=== PATIENT | male | born 1945 | race Caucasian/White ===

== ENCOUNTER 2016-09-28 13:40 | Inpatient (IN) | payer OTHER, BC ==
--- NOTE | 2016-09-28 14:15 | PDOC ---
History of Present Illness - General Chief Complaint: Shortness of Breath Stated Complaint: SOB Time Seen by Provider: 09/28/16 13:52 Past History - Past Medical History Allergies/Adverse Reactions: Allergies Allergy/AdvReac Type Severity Reaction Status Date / Time No Known Drug Allergies Allergy Verified 09/28/16 13:50 Home Medications: Ambulatory Orders Ezetimibe [Zetia -] 10 mg PO HS 01/14/12 Glimepiride 4 mg PO BID 01/14/12 Metoprolol Succinate [Toprol XL -] 50 mg PO DAILY 01/14/12 Allopurinol [Zyloprim -] 100 mg PO HS 12/09/12 Docosahexanoic Acid/Epa [Fish Oil Concentrate Softgel] 1 each PO DAILY 12/09/12 Pitavastatin Calcium [Livalo] 2 mg PO DAILY 12/09/12 Pirfenidone [Esbriet] 2 tab PO TID 07/16/14 Prednisone [Deltasone -] 20 mg PO HS 07/16/14 Aspirin [ASA -] 81 mg PO DAILY #0 07/20/14 Cholecalciferol (Vitamin D3) [Vitamin D3] 2,000 unit PO DAILY 07/20/14 Ubidecarenone/Vit E Acetate [Co Q-10 100 mg Softgel] 1 each PO DAILY 07/20/14 Insulin (Novolog 70/30) [Novolog Mix 70/30 Flexpen -] 20 units SQ DAILY Pitavastatin Calcium [Livalo] 2 mg PO DAILY 08/15/14 Acetaminophen [Tylenol .Regular Strength -] 650 mg PO Q6H PRN #60 tablet Pantoprazole Sodium [Protonix -] 40 mg PO DAILY #30 tablet.ec 08/19/14 Sennosides [Senna -] 2 tab PO HS PRN #0 tablet 08/19/14 Anemia: No Asthma: No Cancer: No Cardiac Disorders: Yes ([place] 1991, CAD, PCI) CVA: No COPD: Yes CHF: No Dementia: No Diabetes: Yes GI Disorders: No Disorders: Yes (BPH) HTN: Yes Hypercholesterolemia: Yes Liver Disease: No Seizures: No Thyroid Disease: No Other medical history: Instertitial Pulmonary Disease, Nephropathy - Surgical History Abdominal Surgery: Yes Appendectomy: Yes (1981) Cardiac Surgery: Yes (stents 2003) Cholecystectomy: No Lung Surgery: No Neurologic Surgery: No Orthopedic Surgery: Yes (rt knee 1995) - Immunization History Td Vaccination: Yes - Psycho/Social/Smoking Cessation Hx Anxiety: No Suicidal Ideation: No Smoking Status: No Smoking History: Former smoker Have you smoked in the past 12 months: No Number of Cigarettes Smoked Daily: 0 If you are a former smoker, when did you quit?: 1989 Information on smoking cessation initiated: No Hx Alcohol Use: No (denies) Drug/Substance Use Hx: No (denies) Substance Use Type: None Hx Substance Use Treatment: No *Physical Exam - Vital Signs Last Vital Signs Temp Pulse Resp BP Pulse Ox 98.4 F 112 H 22 128/78 91 L 09/28/16 13:47 09/28/16 13:47 09/28/16 13:47 09/28/16 13:47 09/28/16 13:47
--- NOTE | 2016-09-28 14:19 | PDOC ---
Attending Attestation - Resident Resident Name: Elijah Wood - ED Attending Attestation I have performed the following: I have examined & evaluated the patient, The case was reviewed & discussed with the resident, I agree w/resident's findings & plan, Exceptions are as noted - HPI HPI: 70 yo M history CHF, CAD, afib presents from Dr. Calle's office with progressively worsening SOB. He states he has had a recent decrease in exercise tolerance, has had difficulty walking his dog on their usual route without getting winded. He notes some slight swelling in his B/L legs, but the L one was recently injured. Denies chest pain, cough, fever. - Physicial Exam PE: GENERAL: Awake, alert, and fully oriented, in no acute distress HEAD: No signs of trauma EYES: PERRLA, EOMI, sclera anicteric, conjunctiva clear ENT: Auricles normal inspection, hearing grossly normal, nares patent, oropharynx clear without exudates. Moist mucosa NECK: Normal ROM, supple, no lymphadenopathy, JVD, or masses LUNGS: +Coarse crackles 1[address] B/L. HEART: Tachycardic, regular rhythm. ABDOMEN: Soft, nontender, normoactive bowel sounds. No guarding, no rebound. No masses EXTREMITIES: Normal range of motion, +trace pitting edema to pretibial area B/ L. No clubbing or cyanosis. No cords, erythema, or tenderness NEUROLOGICAL: Cranial nerves II through XII grossly intact. Normal speech, normal gait SKIN: Warm, Dry, normal turgor, no rashes or lesions noted. - Medical Decision Making Pt sent for CHF exacerbation. Will obtain labs, CXR, and EKG. Admit.
--- NOTE | 2016-09-28 14:26 | PDOC ---
History of Present Illness - History of Present Illness Initial Comments: 09/28/16 15:12 Mr. Dolan is a 70 year old male with a significant past medical history of Pulmonary Hypertension, Pulmonary Fibrosis, COPD, BPH, and Hematuria who presents to the emergency department with a 2-3 week history of increased Shortness of Breath after he switched from metoprolol to diltiazem. He says he was previously able to walk a great distance but now must stop 2-3 times while walking his dog over the same distance. The patient denies chest pain, headache and dizziness. Denies fever, chills, nausea, vomit, diarrhea and constipation. Denies dysuria, frequency, urgency and hematuria. Allergies: NKDA Past surgical history: Appendectomy and Cataract removal Social history: Extensive smoking history (35+ pack years) PMD - [facility] 09/28/16 15:38 <Elijah Wood - Last Filed: 09/28/16 16:59> <Lili Cortez - Last Filed: 09/28/16 17:43> - General Chief Complaint: Shortness of Breath Stated Complaint: SOB Time Seen by Provider: 09/28/16 13:52 Past History - Past Medical History Anemia: No Asthma: No Cancer: No Cardiac Disorders: Yes ([place] 1991, CAD, PCI) CVA: No COPD: Yes CHF: No Dementia: No Diabetes: Yes GI Disorders: No Disorders: Yes (BPH) HTN: Yes Hypercholesterolemia: Yes Liver Disease: No Seizures: No Thyroid Disease: No Other medical history: Instertitial Pulmonary Disease, Nephropathy - Surgical History Abdominal Surgery: Yes Appendectomy: Yes (1981) Cardiac Surgery: Yes (stents 2003) Cholecystectomy: No Lung Surgery: No Neurologic Surgery: No Orthopedic Surgery: Yes (rt knee 1995) - Immunization History Td Vaccination: Yes - Psycho/Social/Smoking Cessation Hx Anxiety: No Suicidal Ideation: No Smoking Status: No Smoking History: Former smoker Have you smoked in the past 12 months: No Number of Cigarettes Smoked Daily: 0 If you are a former smoker, when did you quit?: 1989 Information on smoking cessation initiated: No Hx Alcohol Use: No (denies) Drug/Substance Use Hx: No (denies) Substance Use Type: None Hx Substance Use Treatment: No <Elijah Wood - Last Filed: 09/28/16 16:59> <Lili Cortez - Last Filed: 09/28/16 17:43> - Past Medical History Allergies/Adverse Reactions: Allergies Allergy/AdvReac Type Severity Reaction Status Date / Time No Known Drug Allergies Allergy Verified 09/28/16 13:50 Home Medications: Ambulatory Orders Ezetimibe [Zetia -] 10 mg PO HS 01/14/12 Allopurinol [Zyloprim -] 50 mg PO HS 12/09/12 Docosahexanoic Acid/Epa [Fish Oil Concentrate Softgel] 1 each PO DAILY 12/09/12 Prednisone [Deltasone -] 20 mg PO HS 07/16/14 Aspirin [ASA -] 81 mg PO DAILY #0 07/20/14 Cholecalciferol (Vitamin D3) [Vitamin D3] 2,000 unit PO DAILY 07/20/14 Ubidecarenone/Vit E Acetate [Co Q-10 100 mg Softgel] 1 each PO DAILY 07/20/14 Insulin (Novolog 70/30) [Novolog Mix 70/30 Flexpen -] 10 - 25 units SQ DAILY Pitavastatin Calcium [Livalo] 4 mg PO DAILY 08/15/14 Sennosides [Senna -] 2 tab PO HS PRN #0 tablet 08/19/14 Albuterol Sulfate [Proair Respiclick] 2 puff IH QID 09/28/16 Diltiazem Cd [Cardizem Cd -] 180 mg PO DAILY 09/28/16 Insulin (Levemir) [Levemir Vial] 8 - 28 units SQ BID 09/28/16 Review of Systems - Review of Systems Comments:: 09/28/16 15:11 GENERAL/CONSTITUTIONAL: No fever or chills. No weakness. HEAD, EYES, EARS, NOSE AND THROAT: No change in vision. No ear pain or discharge. No sore throat. CARDIOVASCULAR: +Shortness of breath for the last 2-3 weeks. No chest pain RESPIRATORY: No cough, wheezing, or hemoptysis. GASTROINTESTINAL: No nausea, vomiting, diarrhea or constipation. GENITOURINARY: No dysuria, frequency, or change in urination. MUSCULOSKELETAL: No joint or muscle swelling or pain. No neck or back pain. SKIN: No rash NEUROLOGIC: No headache, vertigo, loss of consciousness, or change in strength/ sensation. ENDOCRINE: No increased thirst. No abnormal weight change HEMATOLOGIC/LYMPHATIC: +Easy bruising. No anemia or history of blood clots. ALLERGIC/IMMUNOLOGIC: No hives or skin allergy. 09/28/16 15:39 <Elijah Wood - Last Filed: 09/28/16 16:59> *Physical Exam - Vital Signs Last Vital Signs Temp Pulse Resp BP Pulse Ox 98.4 F 112 H 22 128/78 91 L 09/28/16 13:47 09/28/16 13:47 09/28/16 13:47 09/28/16 13:47 09/28/16 13:47 - Physical Exam Comments: 09/28/16 15:11 GENERAL: Awake, alert, and fully oriented, in no acute distress HEAD: No signs of trauma, normocephalic, atraumatic EYES: PERRLA, EOMI, sclera anicteric, conjunctiva clear ENT: Auricles normal inspection, hearing grossly normal, nares patent, oropharynx clear without exudates. Moist mucosa NECK: Normal ROM, supple, no lymphadenopathy, JVD, or masses LUNGS: +Lungs coarse sounding, particularly in R lung field. No distress, speaks full sentences HEART: Regular rate and rhythm, normal S1 and S2, no murmurs, rubs or gallops, peripheral pulses normal and equal bilaterally. ABDOMEN: Soft, nontender, normoactive bowel sounds. No guarding, no rebound. No masses EXTREMITIES: Normal inspection, Normal range of motion, no edema. No clubbing or cyanosis. NEUROLOGICAL: Cranial nerves II through XII grossly intact. Normal speech, normal gait, no focal sensorimotor deficits SKIN: Warm, Dry, normal turgor, no rashes or lesions noted. 09/28/16 15:46 <Elijah Wood - Last Filed: 09/28/16 16:59> - Vital Signs Last Vital Signs Temp Pulse Resp BP Pulse Ox 98.4 F 112 H 22 128/78 91 L 09/28/16 13:47 09/28/16 13:47 09/28/16 13:47 09/28/16 13:47 09/28/16 13:47 <Lili Cortez - Last Filed: 09/28/16 17:43> ED Treatment Course - LABORATORY CBC & Chemistry Diagram: 09/28/16 14:29 09/28/16 14:29 <Elijah Wood - Last Filed: 09/28/16 16:59> - LABORATORY CBC & Chemistry Diagram: 09/28/16 14:29 09/28/16 14:29 - RADIOLOGY Radiology Studies Ordered: Category Date Time Status CHEST X-RAY PORTABLE* [RAD] Stat Radiology 09/28/16 14:20 Ordered <Lili Cortez - Last Filed: 09/28/16 17:43> Medical Decision Making - Medical Decision Making 09/28/16 15:45 Mr. Dolan presents from PCP for increased SOB. Patient of Dr. Swartz, presented on his direction. He has had recent onset increase in SOB. Dr. Swartz believes it is in part due to an increase in salt intake after vacation diet. Standard labs drawn and cardiac causes / CXR investigated as well as BNP. Lasix 40 administered to diurese off additional fluid heard on lung exam. 09/28/16 16:59 Admitting for F/U <Elijah Wood - Last Filed: 09/28/16 16:59> *DC/Admit/Observation/Transfer <Elijah Wood - Last Filed: 09/28/16 16:59> - Discharge Dispostion Admit: Yes <Lili Cortez - Last Filed: 09/28/16 17:43> Diagnosis at time of Disposition: Acute on chronic congestive heart failure Qualifiers: Congestive heart failure type: unspecified congestive heart failure type Qualified Code(s): I50.9 - Heart failure, unspecified - Discharge Dispostion Condition at time of disposition: Guarded - Referrals Referrals: Lonnie Garrido MD [Primary Care Provider] -
[2016-09-28 15:01] LABS: MCH 31.2 pg (25.7-33.7); MCHC 33.2 g/dl (32.0-35.9); MEAN CELL VOLUME 93.8 fl (80-96); MEAN PLT VOLUME 8.7 fl (7.5-11.1); PLATELET COUNT 212 K/MM3 (134-434); RDW 14.3 % (11.9-15.9); WHITE BLOOD COUNT 17.4 K/mm3 (4.0-10.0)
[2016-09-28 16:14] LABS: ALBUMIN 3.2 g/dl (3.4-5.0); ANION GAP 9 (8-16); CALCIUM 9.1 mg/dL (8.5-10.1); CO2 23 mmol/L (21-32); GLUCOSE,RANDOM 55 mg/dL (74-106)
[2016-09-28 16:20] LABS: ALK PHOS 73 U/L (45-117); BILIRUBIN,TOTAL 0.5 mg/dL (0.2-1.0); CREATININE 1.6 mg/dL (0.7-1.3); SGPT/ALT 59 U/L (12-78); TOT PROT 7.1 g/dl (6.4-8.2); TROPONIN I 0.04 ng/ml (0.00-0.05)
[2016-09-28 16:39] LABS: METAMYELOCYTE 1 % (0-2); PLATELET ESTIMATE ADEQUATE (NORMAL)
[2016-09-28] MEDS ORDERED: FUROSEMIDE 40 MG/4 ML INJECTABLE VIAL IVPB ONE (16:41)
[2016-09-28 16:58] LABS: SGOT/AST 56 U/L (15-37)
[2016-09-28] MEDS ORDERED: FUROSEMIDE 40 MG/4 ML INJECTABLE VIAL ONE (17:36)
[2016-09-28 18:01] LABS: CPK 301 IU/L (39-308)
[2016-09-28] MEDS ORDERED: SENNOSIDES 8.6MG TABLET (FP) PO PRN (19:39)
[2016-09-28] MEDS ORDERED: methylPREDNISolone NA SUCC 125 MG/2 ML VIAL IVPB ONE (19:43)
--- NOTE | 2016-09-28 19:59 | HP ---
Admitting History and Physical - Admission Chief Complaint: shortness of breath History of Present Illness: 70 yo male, history of CAD, Pulm fibrosis presents to hospital with increasing shortness of breath and dyspnea on even minor exertions. Had seen cardio today , who sent him to hospital. Patient notes that he has been seeing a specialist at [facility] for the pulmonary fibrosis, starting different medications over the past year, but back on prednisone with worsening shortness of breath recently. Notes that blood pressure medication was also changed, from metoprolol to diltiazem and thinks maybe the change in breathing is related to the medication. States that he had echo about 2 months ago, with reportedly normal heart function at that time. History Source: Patient, Family Member Limitations to Obtaining History: No Limitations - Past Medical History Cardiovascular: Yes: [place], Pulmonary Hypertension Pulmonary: Yes: COPD, Pulmonary Fibrosis Renal/: Yes: BPH, Hematuria Psych: Yes: Anxiety - Past Surgical History Past Surgical History: Yes: Appendectomy, Cataract Removal (coronary artery stent by history. 2010 3 stents placed), Stent - Smoking History Smoking history: Former smoker Have you smoked in the past 12 months: No Aproximately how many cigarettes per day: 0 If you are a former smoker, when did you quit?: 1989 - Alcohol/Substance Use Hx Alcohol Use: No (denies) History of Substance Use: reports: None - Social History ADL: Independent Occupation: retired secondary to disability History of Recent Travel: No Home Medications - Allergies Allergies/Adverse Reactions: Allergies Allergy/AdvReac Type Severity Reaction Status Date / Time No Known Drug Allergies Allergy Verified 09/28/16 13:50 - Home Medications Home Medications: Ambulatory Orders Ezetimibe [Zetia -] 10 mg PO HS 01/14/12 Allopurinol [Zyloprim -] 50 mg PO HS 12/09/12 Docosahexanoic Acid/Epa [Fish Oil Concentrate Softgel] 1 each PO DAILY 12/09/12 Prednisone [Deltasone -] 20 mg PO HS 07/16/14 Aspirin [ASA -] 81 mg PO DAILY #0 07/20/14 Cholecalciferol (Vitamin D3) [Vitamin D3] 2,000 unit PO DAILY 07/20/14 Ubidecarenone/Vit E Acetate [Co Q-10 100 mg Softgel] 1 each PO DAILY 07/20/14 Insulin (Novolog 70/30) [Novolog Mix 70/30 Flexpen -] 10 - 25 units SQ DAILY Pitavastatin Calcium [Livalo] 4 mg PO DAILY 08/15/14 Sennosides [Senna -] 2 tab PO HS PRN #0 tablet 08/19/14 Albuterol Sulfate [Proair Respiclick] 2 puff IH QID 09/28/16 Diltiazem Cd [Cardizem Cd -] 180 mg PO DAILY 09/28/16 Insulin (Levemir) [Levemir Vial] 8 - 28 units SQ BID 09/28/16 Family Disease History - Family Disease History Family Disease History: Diabetes: Brother, Heart Disease: Father, Other: Mother (dementia) Review of Systems - Review of Systems Constitutional: denies: Chills, Fever, Loss of Appetite Eyes: reports: No Symptoms HENT: denies: Difficult Swallowing, Epistaxis, Throat Pain Neck: denies: Decreased ROM, Stiffness, Tenderness Cardiovascular: denies: Chest Pain, Palpitations Respiratory: reports: Cough. denies: Hemoptysis Gastrointestinal: denies: Abdominal Pain, Constipation, Diarrhea, Dysphagia, Melena, Nausea, Vomiting Genitourinary: denies: Burning, Discharge, Dysuria Neurological: denies: Change in LOC Physical Examination Vital Signs: Vital Signs Temperature 98.1 F 09/28/16 17:40 Pulse Rate 104 H 09/28/16 17:40 Respiratory Rate 18 09/28/16 17:40 Blood Pressure 149/83 09/28/16 17:40 O2 Sat by Pulse Oximetry (%) 100 09/28/16 17:40 Constitutional: Yes: Well Nourished, No Distress, Calm Eyes: Yes: Conjunctiva Clear, EOM Intact, PERRL HENT: Yes: Atraumatic, Normocephalic Neck: Yes: Supple, Trachea Midline Cardiovascular: Yes: Regular Rate and Rhythm, S1, S2. No: Murmur Respiratory: Yes: Regular, Rhonchi (bilaterally). No: Wheezes Musculoskeletal: Yes: Other (Had sprained left foot while on vacation a couple of weeks ago) Edema: No Imaging - Results Chest X-ray: Report Reviewed (increased interstitial markings) Problem List - Problems (1) Pulmonary fibrosis Assessment/Plan: -appears to be pulmonary related symptoms with BNP 180 -start IV steroids, neb treatments, Spiriva, O2 -pulm consult -consider CT angio chest for PE, but curretnly Creatinine elevated at 1.6 Code(s): J84.10 - PULMONARY FIBROSIS, UNSPECIFIED (2) Arteriosclerotic heart disease (ASHD) Assessment/Plan: -cardio eval Code(s): I25.10 - ATHSCL HEART DISEASE OF [place] CORONARY ARTERY W/O ANG PCTRS (3) Diabetes mellitus type 2 in nonobese Assessment/Plan: -cont Levemir, start novolog sliding scale, as will be on IV steroids Code(s): E11.9 - TYPE 2 DIABETES MELLITUS WITHOUT COMPLICATIONS
[2016-09-28] MEDS ORDERED: SODIUM CHLORIDE 0.45% 1,000 ML IV SCH (20:00)
[2016-09-28 20:19] LABS: URINE APPEARANCE CLEAR; URINE BILIRUBIN NEGATIVE (NEGATIVE); URINE BLOOD 1+ (NEGATIVE); URINE COLOR LTYELLOW; URINE GLUCOSE (UA) NEGATIVE (NEGATIVE); URINE KETONE NEGATIVE (NEGATIVE); URINE LEUK ESTERASE NEGATIVE (NEGATIVE); URINE NITRITE NEGATIVE (NEGATIVE); URINE UROBILINOGEN NEGATIVE mg/dL (0.2-1.0)
[2016-09-28 20:20] LABS: URINE PROTEIN 2+ (NEGATIVE)
[2016-09-28 20:28] LABS: URINE MUCUS RARE; URINE RBC 3 /hpf (0-3); URINE WBC <1 /hpf (3-5)
[2016-09-28] MEDS ORDERED: INSULIN DETEMIR 100 UNITS/ML MDV SQ SCH (22:00)
[2016-09-28] MEDS ORDERED: ACLIDINIUM BROMIDE 400 MCG/INH AERO.POWD IH SCH (22:00)
[2016-09-28] MEDS: ALLOPURINOL 100 MG TABLET (FP) PO SCH (22:30)
[2016-09-28] MEDS: ATORVASTATIN CA 20 MG TABLET (FP) PO SCH (22:30)
[2016-09-28] MEDS: INSULIN SLIDING SCALE (NOVOLOG) 1 VIAL SQ SCH (22:31)
[2016-09-28] MEDS: EZETIMIBE 10 MG TABLET (FP) PO SCH (22:40)
[2016-09-29] MEDS: ALBUTEROL SO4 0.083% IH SOL 2.5 MG/3 ML VIAL.NEB. NEB SCH ×2 (00:06→07:02)
[2016-09-29] MEDS: methylPREDNISolone NA SUCC 125 MG/2 ML VIAL IVPB SCH ×3 (01:26→17:24)
[2016-09-29] MEDS: INSULIN SLIDING SCALE (NOVOLOG) 1 VIAL SQ SCH ×4 (06:45→21:30)
[2016-09-29 08:08] LABS: BASOPHIL 0.2 % (0-2.0); EOSINOPHIL 0.1 % (0-4.5); MCH 30.9 pg (25.7-33.7); MCHC 32.9 g/dl (32.0-35.9); MEAN PLT VOLUME 8.2 fl (7.5-11.1); NEUTROPHILS 92.7 % (42.8-82.8); PLATELET COUNT 163 K/MM3 (134-434); RDW 13.6 % (11.9-15.9); WHITE BLOOD COUNT 14.2 K/mm3 (4.0-10.0)
--- NOTE | 2016-09-29 08:17 | EKG ---
Test Reason : Blood Pressure : / mmHG Vent. Rate : 110 BPM Atrial Rate : 110 BPM P-R Int : 178 ms QRS Dur : 110 ms QT Int : 346 ms P-R-T Axes : 029 -17 004 degrees QTc Int : 468 ms SINUS TACHYCARDIA VOLTAGE CRITERIA FOR LEFT VENTRICULAR HYPERTROPHY POSSIBLE LATERAL INFARCT , AGE UNDETERMINED INFERIOR INFARCT (CITED ON OR BEFORE 18-OCT-1999) ABNORMAL ECG WHEN COMPARED WITH ECG OF 16-AUG-2014 09:05, NO SIGNIFICANT CHANGE WAS FOUND Confirmed by JB BAUER MD ([id number]) on 09/29/2016 8:16:32 AM Referred By: Confirmed By:JB BAUER MD
--- NOTE | 2016-09-29 08:34 | CONS ---
DATE OF CONSULTATION: 09/28/2016 TIME OF CONSULTATION: 08:40 p.m. REQUESTING PHYSICIAN: Sajan Barnes MD CARDIOLOGY CONSULTATION CHIEF COMPLAINTS: 1. Increasing shortness of breath. 2. History of wheezing. HISTORY OF PRESENT ILLNESS: A 70-year-old white gentleman who has a known case of coronary artery disease status post myocardial infarction, status post PCI/stenting, angina pectoris, a history of COPD/interstitial pulmonary disease, insulin-dependent diabetes mellitus, diabetic nephropathy, diabetic neuropathy, hypertension, dyslipidemia, type II-B, was recently seen in the office with increasing wheezing, and it was decided that he should be taken off [id number] to see if they had been contributing to his respiratory distress. He was placed on Cardizem CD 180 mg p.o. daily, and patient states that he started to experience progressive dyspnea. He came to the office today for a followup and was acutely dyspneic and appeared to be in congestive heart failure, was sent to the emergency room and was given Solu-Medrol intravenously and also received Lasix, and patient had significant relief. He is also known to have mild left ventricular systolic dysfunction. There is no history of chest pain or discomfort either at rest or with exertion, no history of paroxysmal nocturnal dyspnea or orthopnea reported. History of mild intermittent cough with clear expectoration. No history of palpitations, lightheadedness, dizzy, or syncope. Patient also is known to have obstructive sleep apnea syndrome, but refuses to use CPAP. PAST HISTORY: As mentioned in the history of present illness. SURGICAL HISTORY: 1. Status post appendectomy. 2. Bilateral cataract extraction. SOCIAL HISTORY: He is . He is retired, has 2 children who are healthy. Smoked from the age of 15 to 43, smoked up to 2 packs of cigarettes per day. Does not imbibe alcohol excessively. There is no recent history of drug use. FAMILY HISTORY: Father of a myocardial infarction. Mother of dementia. Has 2 brothers and 2 sisters who are healthy. ALLERGIES: None reported. MEDICATION PRIOR TO ADMISSION: 1. Diltiazem CD 180 mg p.o. daily. 2. Livalo 4 mg p.o. daily. 3. Zetia 10 mg p.o. daily. 4. Allopurinol 50 mg p.o. daily. 5. Prednisone 20 mg p.o. daily nightly. 6. [place]-3 fatty acid 1 p.o. daily. 7. Vitamin D3 at 2000 international units p.o. daily. 8. NovoLog insulin 70/30 on a sliding scale usually varying between 10-25 units subcutaneously daily. 9. Albuterol inhaler 2 puffs q.i.d. 10. Levemir insulin 8-28 units on a sliding scale b.i.d. 11. Currently, patient has received Solu-Medrol 80 mg and will be receiving 80 mg q.8 hours. 12. Lovenox 40 mg subcutaneously daily. 13. Albuterol nebulizer q.i.d. 14. Senna 2 tablets p.o. p.r.n. REVIEW OF SYSTEMS: Constitutional: No history of chills, fever, or night sweats. No history of unintentional weight loss. HEENT: No history of headaches, diplopia, or blurred vision. No history of epistaxis, hoarseness, tinnitus, or deafness reported Cardiovascular: See history of present illness. Respiratory: See history of present illness. No history of hemoptysis. Gastrointestinal: No history of nausea, vomiting, melena, or hematemesis. No history of abdominal pain or change in bowel habits. Neurological: No history of seizures or syncope. No history of focal weakness. Denies having lightheaded or dizziness. Endocrine: See history of present illness. No history of intolerance to cold or warm weather. Genitourinary: History of BPH and history of nocturia 2-3 times a night. Musculoskeletal: Denies having myalgias or arthralgias. Hematological: No history of anemia, ecchymosis, or bleeding. Lymphatics: No history of lymphadenopathy. PHYSICAL EXAMINATION: General: A 70-year-old obese male who was in no acute distress at the time of examination. No pallor, cyanosis, clubbing, or jaundice. Vital Signs: Blood pressure 150/90 mmHg, pulse 100 beats per minute and regular, respirations 22 beats per minute, temperature 98.1 degrees Fahrenheit. Patient is on 2 L of nasal oxygen. Neck: Supple. No jugular venous distention. Positive hepatojugular reflex. Carotids were 2+. Upstrokes were normal. No bruits were heard, and no thyromegaly was present. Heart: PMI was not localized. No heaves or thrills. Heart sounds were distant. No murmurs or gallops were appreciated. Lungs: Scattered bibasilar crepitation and expiratory wheezing. Abdomen: Markedly obese, nontender. No hepatosplenomegaly or palpable masses were felt. Bowel sounds were heard. No bruits were heard. Extremities: No calf tenderness. There was 1+ left pretibial edema. Pulses were equal. Dorsalis pedis and posterior tibial pulses were weak. LABORATORY DATA: X-ray chest impression: Increased interstitial markings diffusely and are again noted and appear more pronounced, which may reflect progression of pulmonary fibrosis versus pulmonary fibrosis with superimposed-process congestive heart failure and recommend clinical correlation. ECG is not available. Sodium 141, potassium 4.8, chloride 109, CO2 of 23 mmol/L. BUN 38, creatinine 1.6 mg/dL. Random glucose was 55. AST was elevated at 56. Troponin was 0.04. BNP was 189.18. WBC count was 17,400, hemoglobin was 16.9 g, platelet count was 212,000. IMPRESSION: 1. Congestive heart failure, [place] Heart Classification III. 2. Interstitial pulmonary disease with possible acute exacerbation. 3. Coronary artery disease, status post myocardial infarction, status post percutaneous coronary intervention/stenting, angina pectoris. 4. Insulin-dependent diabetes mellitus. 5. Diabetic nephropathy. 6. Diabetic neuropathy. 7. Hypertension. 8. Dyslipidemia, type II-B. 9. Exogenous obesity. 10. Poor compliance. RECOMMENDATIONS: 1. Discontinue Cardizem. 2. Resume Toprol-XL 50 mg p.o. daily. 3. Continue all cardiac medication including diuretics. 4. Risk modification. 5. ECG and followup cardiac enzymes. 6. Echocardiogram. 7. Close followup of blood sugar. PROGNOSIS: Guarded. Thank you for your referral. Yours sincerely, MORIS SHER M.D. [id number]
[2016-09-29 08:46] LABS: ALBUMIN 2.8 g/dl (3.4-5.0); ANION GAP 10 (8-16); BILIRUBIN,TOTAL 0.9 mg/dL (0.2-1.0); CALCIUM 8.6 mg/dL (8.5-10.1); CO2 22 mmol/L (21-32); CREATININE 1.7 mg/dL (0.7-1.3); SGOT/AST 30 U/L (15-37); SGPT/ALT 55 U/L (12-78); TOT PROT 6.4 g/dl (6.4-8.2)
[2016-09-29 08:47] LABS: ALK PHOS 73 U/L (45-117)
--- NOTE | 2016-09-29 09:26 | PN ---
Progress Note (short form) - Note Progress Note: PULMONARY CONSULTATION DICTATED 09/29/16 IMP ACUTE ON CHRONIC HYPOXEMIC RESPIRATORY FAILURE ADVANCE PULMONARY FIBROSIS PULMONARY HTN ASHD S/P IN,S/P STENTS DM ACUTE ON CHRONIC KIDNEY DISEASE HTN OSAS PLAN IV STEROIDS SUPPLEMENTAL O2 INHALED BRONCHODILATORS MONITOR LYTES,RENAL FUNCTION GLYCEMIC CONTROL BiPAP AT NIGHT DR APLACIOS Problem List - Problems (1) Pulmonary fibrosis Code(s): J84.10 - PULMONARY FIBROSIS, UNSPECIFIED (2) Arteriosclerotic heart disease (ASHD) Code(s): I25.10 - ATHSCL HEART DISEASE OF [place] CORONARY ARTERY W/O ANG PCTRS (3) Diabetes mellitus type 2 in nonobese Code(s): E11.9 - TYPE 2 DIABETES MELLITUS WITHOUT COMPLICATIONS (4) Acute and chronic respiratory failure Code(s): J96.20 - ACUTE AND CHR RESP FAILURE, UNSP W HYPOXIA OR HYPERCAPNIA (5) Uretb-er-npehaav kidney injury Code(s): N17.9 - ACUTE KIDNEY FAILURE, UNSPECIFIED N18.9 - CHRONIC KIDNEY DISEASE, UNSPECIFIED (6) Sleep apnea Code(s): G47.30 - SLEEP APNEA, UNSPECIFIED
[2016-09-29] MEDS ORDERED: ALBUTEROL SO4 0.083% IH SOL 2.5 MG/3 ML VIAL.NEB. NEB PRN (09:31)
[2016-09-29 09:47] LABS: GLUCOSE,RANDOM 312 mg/dL (74-106)
[2016-09-29] MEDS: METOPROLOL SUCCINATE 50 MG TAB.SR.24H (FP) PO SCH (09:53)
[2016-09-29] MEDS: ASPIRIN 81 MG CHEWABLE TABLETS PO SCH (09:53)
[2016-09-29] MEDS: CHOLECALCIFEROL (VITAMIN D3) 1,000 UNIT TABLET (FP) PO SCH (09:53)
[2016-09-29] MEDS: ENOXAPARIN NA (PORCINE) 40 MG/0.4 ML DISP.SYRIN SQ SCH (09:53)
[2016-09-29] MEDS ORDERED: [UNRECOGNIZED DRUG - OTHER] PO SCH (10:00)
[2016-09-29] MEDS ORDERED: DOCOSAHEXANOIC ACID PO SCH (10:00)
[2016-09-29] MEDS ORDERED: EPA PO SCH (10:00)
[2016-09-29] MEDS ORDERED: PATIENT'S OWN MEDICATION (NON-FORMULARY) (Ubidecarenone/Vit E Acetate [Co Q-10 100 Mg Soft PO SCH (10:00)
--- NOTE | 2016-09-29 10:46 | CONS ---
PULMONARY CONSULTATION DATE OF CONSULTATION: 09/29/2016 REFERRING PHYSICIAN: Sajan Barnes MD HISTORY OF PRESENT ILLNESS: The patient is a 70-year-old white male with a past medical history of ASHD status post [place] in 1990; history of pulmonary hypertension; pulmonary fibrosis, currently being followed at [facility], steroid dependent; history of diabetes mellitus; history of BPH; hematuria; anxiety; obstructive sleep apnea and not using CPAP; admitted to [facility] with complaint of increasing shortness of breath and dyspnea on exertion. Patient states that for the past 2-3 weeks, he started noticing increasing shortness of breath and dyspnea on exertion. Denies any chest pain. Has mild cough which is nonproductive. Denied any fevers, chills. Denies any hemoptysis. His symptoms continued to worsen. At which time, he presented to the emergency room and was subsequently admitted. On admission, he was placed on IV steroids with good clinical response. As stated before, he has a history of pulmonary fibrosis diagnosed approximately 2 years ago. Initially, he was placed on steroids with good clinical response. He denies any weight loss or night sweats. Does not have a history of DVT or PE in the past. Patient apparently states he had an echo approximately 2 months prior to this admission, which had normal cardiac function. PAST MEDICAL HISTORY: Again includes advanced interstitial lung disease; pulmonary fibrosis, currently on steroids; ASHD status post [place], status post stent; cataract surgery; obstructive sleep apnea; BPH; anxiety; pulmonary hypertension; and diabetes mellitus. REVIEW OF SYSTEMS: Positive orthopnea, positive dyspnea on exertion, positive mild cough. No chest pain. No palpitations. No fevers. No weight loss. No night sweats. No abdominal pain. MEDICATIONS PRIOR TO ADMISSION: Include: 1. Zetia. 2. Zyloprim. 3. Prednisone 20 daily. 4. Aspirin. 5. Vitamin D3. 6. CoQ10. 7. NovoLog. 8. Livalo. 9. ProAir. 10. Cardizem CD. 11. Levemir. CURRENT MEDICATIONS: Include: 1. Solu-Medrol 80 q.8. 2. Lovenox. 3. Zyloprim. 4. Tudorza. 5. Albuterol. 6. Toprol. 7. Senna. 8. Zetia. 9. Lipitor. 10. NovoLog. 11. Levemir. 12. Aspirin. 13. Vitamin D3. PHYSICAL EXAMINATION: General: The patient is a well-developed, well-nourished male, awake, alert, currently in no acute distress. Vital Signs: He is currently afebrile. Blood pressure is 147/86. Respiratory rate is 20. O2 saturation is 94% on 2 L. HEENT: Exam is normocephalic, atraumatic. Neck: Supple. Heart: Regular. S1, S2. Chest: Bilateral crackles. Abdomen: Soft. Bowel sounds are positive. Extremities: No cyanosis or edema. LABORATORY DATA: WBC is 14.2, hemoglobin 15.8, hematocrit 48.1 with a platelet count of 163,000. BUN is 44, creatinine 1.7. BNP is 189. Chest x-ray: Increased interstitial markings diffusely and cardiomegaly. IMPRESSION: 1. Ffmes-xz-bxxkshi hypoxemic respiratory failure secondary to advanced interstitial lung disease and pulmonary fibrosis. 2. Atherosclerotic heart disease status post myocardial infarction, status post stents. 3. Nmgvh-ts-amrzmef kidney disease. 4. Obstructive sleep apnea, not on continuous positive airway pressure. 5. Diabetes mellitus. 6. Pulmonary hypertension. PLAN: Continue IV steroids, inhaled bronchodilators, supplemental O2, BiPAP at night. Stressed compliance with CPAP at home. Monitor electrolytes. Weight reduction. Also, compliance with oxygen 17/09. Also, DVT prophylaxis. SHAYY PALACIOS M.D. GERMAN/[id number]
--- NOTE | 2016-09-29 11:57 | PN ---
Progress Note, Physician History of Present Illness: Feeling better this morning, less shortness of breath, but has not been out of bed yet today. - Current Medication List Current Medications: Active Medications Albuterol Sulfate (Ventolin 0.083% Nebulizer Soln -) 1 amp NEB Q4H PRN PRN Reason: SHORT OF BREATH/WHEEZING Last Admin: 09/29/16 11:48 Dose: 1 amp Allopurinol (Zyloprim -) 50 mg PO HS [facility] Last Admin: 09/28/16 22:30 Dose: 50 mg Aspirin (Asa -) 81 mg PO DAILY [facility] Last Admin: 09/29/16 09:53 Dose: 81 mg Atorvastatin Calcium (Lipitor -) 20 mg PO HS [facility] Last Admin: 09/28/16 22:30 Dose: 20 mg Budesonide/Formoterol Fumarate (Symbicort 160/4.5mcg -) 2 puff IH BID [place] Cholecalciferol (Vitamin D3 -) 2,000 unit PO DAILY [facility] Last Admin: 09/29/16 09:53 Dose: 2,000 unit Ezetimibe (Zetia -) 10 mg PO HS [facility] Last Admin: 09/28/16 22:40 Dose: 10 mg Enoxaparin Sodium (Lovenox -) 40 mg SQ DAILY [facility] Last Admin: 09/29/16 09:53 Dose: 40 mg Insulin Aspart (Novolog Vial Sliding Scale -) 1 vial SQ ACHS [facility] PRN Reason: Protocol Last Admin: 09/29/16 06:45 Dose: 4 units Insulin Detemir (Levemir Vial) 20 units SQ HS [facility] Last Admin: 09/28/16 22:29 Dose: 20 units Methylprednisolone Sodium Succinate (Solu-Medrol -) 80 mg IVPB Q8H-IV [facility] Last Admin: 09/29/16 09:53 Dose: 80 mg Metoprolol Succinate (Toprol Xl -) 50 mg PO DAILY [facility] Last Admin: 09/29/16 09:53 Dose: 50 mg Non-Formulary Medication (Docosahexanoic Acid/Epa [Fish Oil Concentrate Softgel] ) 1 each PO DAILY [facility] Non-Formulary Medication (Ubidecarenone/Vit E Acetate [Co Q-10 100 Mg Softgel]) 1 each PO DAILY [facility] Senna (Senna -) 2 tab PO HS PRN PRN Reason: CONSTIPATION Tiotropium [place] (Spiriva -) 1 puff IH DAILY [place] - Objective Vital Signs: Vital Signs Temperature 97.6 F 09/29/16 06:00 Pulse Rate 81 09/29/16 06:00 Respiratory Rate 20 09/29/16 06:00 Blood Pressure 147/86 09/29/16 06:00 O2 Sat by Pulse Oximetry (%) 92 L 09/28/16 21:17 Constitutional: Yes: No Distress, Calm Cardiovascular: Yes: Regular Rate and Rhythm, S1, S2. No: Murmur Respiratory: Yes: Regular, CTA Bilaterally Gastrointestinal: Yes: Normal Bowel Sounds, Soft Edema: No Neurological: Yes: Alert, Oriented Labs: CBC, BMP 09/29/16 05:55 09/29/16 05:55 Problem List - Problems (1) Pulmonary fibrosis Code(s): J84.10 - PULMONARY FIBROSIS, UNSPECIFIED (2) Arteriosclerotic heart disease (ASHD) Code(s): I25.10 - ATHSCL HEART DISEASE OF [place] CORONARY ARTERY W/O ANG PCTRS (3) Diabetes mellitus type 2 in nonobese Code(s): E11.9 - TYPE 2 DIABETES MELLITUS WITHOUT COMPLICATIONS Assessment/Plan Current Active Problems Acute and chronic respiratory failure (Acute) Oselu-mk-qqeopjd kidney injury (Acute) CAD Pulmonary fibrosis (Acute) Sleep apnea (Acute) DM -IV steroids, nebs, spiriva started, O2 -apprec pulm and cardio consults -for repeat echo -back on metoprolol
[2016-09-29] MEDS ORDERED: INSULIN (NOVOLOG) ASPART 100 UNITS/ML 10ML VIAL ONE ×2 (12:11→21:26)
[2016-09-29] MEDS: BUDESONIDE/FORMETEROL FUMARATE 160/4.5 mcg INHALER IH SCH ×2 (12:19→21:30)
[2016-09-29] MEDS ORDERED: Insulin (LOG) Aspart 100 UNITS/ML VIAL SQ ONE (13:44)
[2016-09-29] MEDS: TIOTROPIUM BROMIDE 18 MCG/INH (DEVICE W/ 5 CAPSULES) IH SCH (14:23)
[2016-09-29] MEDS: INSULIN DETEMIR 100 UNITS/ML MDV SQ SCH (17:25)
--- NOTE | 2016-09-29 18:32 | PN ---
Progress Note (short form) - Note Progress Note: 70 year old male known case of CAD S/P [place] S/P PCI/stenting,angina pectoris,DM, hypertension,interstitial pulmonary disease,aditted with severs SOB and found to be in CHF.He has mild SOB,noPND or orthpnea,no chest pain or discomfort. Active Medications Albuterol Sulfate (Ventolin 0.083% Nebulizer Soln -) 1 amp NEB Q4H PRN PRN Reason: SHORT OF BREATH/WHEEZING Last Admin: 09/29/16 11:48 Dose: 1 amp Allopurinol (Zyloprim -) 50 mg PO HS [facility] Last Admin: 09/28/16 22:30 Dose: 50 mg Aspirin (Asa -) 81 mg PO DAILY [facility] Last Admin: 09/29/16 09:53 Dose: 81 mg Atorvastatin Calcium (Lipitor -) 20 mg PO HS [facility] Last Admin: 09/28/16 22:30 Dose: 20 mg Budesonide/Formoterol Fumarate (Symbicort 160/4.5mcg -) 2 puff IH BID [facility] Last Admin: 09/29/16 12:19 Dose: 2 puff Cholecalciferol (Vitamin D3 -) 2,000 unit PO DAILY [facility] Last Admin: 09/29/16 09:53 Dose: 2,000 unit Ezetimibe (Zetia -) 10 mg PO HS [facility] Last Admin: 09/28/16 22:40 Dose: 10 mg Enoxaparin Sodium (Lovenox -) 40 mg SQ DAILY [facility] Last Admin: 09/29/16 09:53 Dose: 40 mg Insulin Aspart (Novolog Vial Sliding Scale -) 1 vial SQ ACHS [facility] PRN Reason: Protocol Last Admin: 09/29/16 17:25 Dose: 8 units Insulin Detemir (Levemir Vial) 20 units SQ BIDI [facility] Last Admin: 09/29/16 17:25 Dose: 20 units Methylprednisolone Sodium Succinate (Solu-Medrol -) 80 mg IVPB Q8H-IV [facility] Last Admin: 09/29/16 17:24 Dose: 80 mg Metoprolol Succinate (Toprol Xl -) 50 mg PO DAILY [facility] Last Admin: 09/29/16 09:53 Dose: 50 mg Non-Formulary Medication (Docosahexanoic Acid/Epa [Fish Oil Concentrate Softgel] ) 1 each PO DAILY [place] Non-Formulary Medication (Ubidecarenone/Vit E Acetate [Co Q-10 100 Mg Softgel]) 1 each PO DAILY [place] Non-Formulary Medication (Trulicity) 0.75 mg SCJ ASDIR [place] Senna (Senna -) 2 tab PO HS PRN PRN Reason: CONSTIPATION Tiotropium [place] (Spiriva -) 1 puff IH DAILY [place] Last Admin: 09/29/16 14:23 Dose: 1 puff 70 year obese was in no distress, on pallor,cyanosis,clubbing or jaundice. Vital Signs Temperature 98.2 F 09/29/16 14:15 Pulse Rate 75 09/29/16 14:15 Respiratory Rate 18 09/29/16 14:15 Blood Pressure 146/73 09/29/16 14:15 O2 Sat by Pulse Oximetry (%) 91 L 09/29/16 09:00 NECK:Supple,-ve HJR,carotids 2+and equal,no bruits heard. HEART:PMI,not localised,no heves or thrills,no murmur or gallops heard. LUNGS:Fine creps. heard at both bases,no expiratory wheezing. ABDOMEN:Soft,obese,nontender,no hepatosplenomegaly. EXTREMITIES:No calf tenderness or dependent edema. Laboratory Last Values Abnormal Lab Results 09/28/16 09/28/16 09/28/16 14:29 20:00 20:30 WBC Neutrophils % Lymphocytes % Monocytes % D-Dimer 266 H Sodium Potassium Chloride 109 H BUN 38 H D Creatinine 1.6 H D Random Glucose 55 L D AST 56 H D CK-MB (CK-2) 3.619 H B-Natriuretic Peptide 189.18 H Albumin 3.2 L D Urine Protein 2+ H Urine Blood 1+ H 09/29/16 09/29/16 05:55 05:55 WBC 14.2 H Neutrophils % 92.7 H Lymphocytes % 6.3 L D Monocytes % 0.7 L D D-Dimer Sodium 132 L Potassium 5.3 H Chloride BUN 44 H Creatinine 1.7 H Random Glucose 312 H* D AST CK-MB (CK-2) B-Natriuretic Peptide Albumin 2.8 L Urine Protein Urine Blood IMPRESSION: 1. Diabetes mellitus,poorly controlled. 2. Congestive heart failure, resolving. 3. COPD/interstitial pulmonary disease. 4. Hypertesion. 5. Hypercholesterolemia. 6. CKD. RECOMMENDATION: 1. COntinue Lasix 40mg.po daily 2. Close F/U of BMP. 3. Daily weights. 4. Echocardiogram.
[2016-09-29] MEDS: TRULICITY 0.75 MG SQ SCH ×2 (20:52→20:53)
[2016-09-29] MEDS: ALLOPURINOL 100 MG TABLET (FP) PO SCH (21:29)
[2016-09-29] MEDS: ATORVASTATIN CA 20 MG TABLET (FP) PO SCH (21:29)
[2016-09-29] MEDS: EZETIMIBE 10 MG TABLET (FP) PO SCH (21:30)
[2016-09-30] MEDS: methylPREDNISolone NA SUCC 125 MG/2 ML VIAL IVPB SCH ×3 (01:07→18:06)
[2016-09-30] MEDS ORDERED: INSULIN (NOVOLOG) ASPART 100 UNITS/ML 10ML VIAL ONE ×3 (06:31→18:41)
[2016-09-30] MEDS: INSULIN DETEMIR 100 UNITS/ML MDV SQ SCH ×2 (06:34→18:07)
[2016-09-30] MEDS: INSULIN SLIDING SCALE (NOVOLOG) 1 VIAL SQ SCH ×4 (06:35→21:46)
[2016-09-30 07:55] LABS: MCH 30.9 pg (25.7-33.7); MCHC 32.8 g/dl (32.0-35.9); MEAN CELL VOLUME 94.1 fl (80-96); MEAN PLT VOLUME 8.5 fl (7.5-11.1); PLATELET COUNT 171 K/MM3 (134-434); RDW 13.8 % (11.9-15.9); WHITE BLOOD COUNT 21.1 K/mm3 (4.0-10.0)
[2016-09-30 08:30] LABS: ANION GAP 11 (8-16); CALCIUM 8.8 mg/dL (8.5-10.1); CO2 22 mmol/L (21-32); CREATININE 1.5 mg/dL (0.7-1.3); GLUCOSE,RANDOM 296 mg/dL (74-106)
[2016-09-30 08:36] LABS: PLATELET ESTIMATE ADEQUATE (NORMAL)
--- NOTE | 2016-09-30 09:05 | PN ---
Progress Note, Physician History of Present Illness: pulmonary alert,feeling better less dyspneic. - Current Medication List Current Medications: Active Medications Albuterol Sulfate (Ventolin 0.083% Nebulizer Soln -) 1 amp NEB Q4H PRN PRN Reason: SHORT OF BREATH/WHEEZING Last Admin: 09/29/16 11:48 Dose: 1 amp Allopurinol (Zyloprim -) 50 mg PO HS [facility] Last Admin: 09/29/16 21:29 Dose: 50 mg Aspirin (Asa -) 81 mg PO DAILY [facility] Last Admin: 09/29/16 09:53 Dose: 81 mg Atorvastatin Calcium (Lipitor -) 20 mg PO HS [facility] Last Admin: 09/29/16 21:29 Dose: 20 mg Budesonide/Formoterol Fumarate (Symbicort 160/4.5mcg -) 2 puff IH BID [facility] Last Admin: 09/29/16 21:30 Dose: 2 puff Cholecalciferol (Vitamin D3 -) 2,000 unit PO DAILY [facility] Last Admin: 09/29/16 09:53 Dose: 2,000 unit Ezetimibe (Zetia -) 10 mg PO HS [facility] Last Admin: 09/29/16 21:30 Dose: 10 mg Enoxaparin Sodium (Lovenox -) 40 mg SQ DAILY [facility] Last Admin: 09/29/16 09:53 Dose: 40 mg Insulin Aspart (Novolog Vial Sliding Scale -) 1 vial SQ ACHS [facility] PRN Reason: Protocol Last Admin: 09/30/16 06:35 Dose: 2 units Insulin Detemir (Levemir Vial) 20 units SQ BIDI [facility] Last Admin: 09/30/16 06:34 Dose: 20 units Methylprednisolone Sodium Succinate (Solu-Medrol -) 80 mg IVPB Q8H-IV [facility] Last Admin: 09/30/16 01:07 Dose: 80 mg Metoprolol Succinate (Toprol Xl -) 50 mg PO DAILY [facility] Last Admin: 09/29/16 09:53 Dose: 50 mg Non-Formulary Medication (Docosahexanoic Acid/Epa [Fish Oil Concentrate Softgel] ) 1 each PO DAILY [facility] Non-Formulary Medication (Ubidecarenone/Vit E Acetate [Co Q-10 100 Mg Softgel]) 1 each PO DAILY [facility] Non-Formulary Medication (Trulicity) 0.75 mg SQ Sa@1900 [facility] Last Admin: 09/29/16 20:53 Dose: Not Given Senna (Senna -) 2 tab PO HS PRN PRN Reason: CONSTIPATION Tiotropium [place] (Spiriva -) 1 puff IH DAILY [facility] Last Admin: 09/29/16 14:23 Dose: 1 puff - [place] Vital Signs: Vital Signs Temperature 97.6 F 09/30/16 06:00 Pulse Rate 72 09/30/16 06:00 Respiratory Rate 18 09/30/16 06:00 Blood Pressure 133/73 09/30/16 06:00 O2 Sat by Pulse Oximetry (%) 96 09/29/16 21:00 Constitutional: Yes: Well Nourished, Calm Eyes: Yes: WNL HENT: Yes: WNL Neck: Yes: WNL Cardiovascular: Yes: Regular Rate and Rhythm, S1, S2 Respiratory: Yes: Rales (bilateral crackles,-wheezes) Gastrointestinal: Yes: Normal Bowel Sounds, Soft Extremities: Yes: WNL Edema: No Labs: CBC, BMP 09/30/16 05:50 09/30/16 05:50 Problem List - Problems (1) Pulmonary fibrosis Code(s): J84.10 - PULMONARY FIBROSIS, UNSPECIFIED (2) Arteriosclerotic heart disease (ASHD) Code(s): I25.10 - ATHSCL HEART DISEASE OF [place] CORONARY ARTERY W/O ANG PCTRS (3) Diabetes mellitus type 2 in nonobese Code(s): E11.9 - TYPE 2 DIABETES MELLITUS WITHOUT COMPLICATIONS (4) Acute and chronic respiratory failure Code(s): J96.20 - ACUTE AND CHR RESP FAILURE, UNSP W HYPOXIA OR HYPERCAPNIA (5) Tcelm-jg-fnakyfb kidney injury Code(s): N17.9 - ACUTE KIDNEY FAILURE, UNSPECIFIED N18.9 - CHRONIC KIDNEY DISEASE, UNSPECIFIED (6) Sleep apnea Code(s): G47.30 - SLEEP APNEA, UNSPECIFIED Assessment/Plan IMP ACUTE ON CHRONIC HYPOXEMIC RESPIRATORY FAILURE ADVANCE PULMONARY FIBROSIS PULMONARY HTN ASHD S/P IA,S/P STENTS DM ACUTE ON CHRONIC KIDNEY DISEASE HTN [facility]AS PLAN TAPER STEROIDS SUPPLEMENTAL O2 INHALED BRONCHODILATORS MONITOR LYTES,RENAL FUNCTION GLYCEMIC CONTROL BiPAP AT NIGHT DR PALACIOS Problem List - Problems (1) Pulmonary fibrosis Code(s): J84.10 - PULMONARY FIBROSIS, UNSPECIFIED (2) Arteriosclerotic heart disease (ASHD) Code(s): I25.10 - ATHSCL HEART DISEASE OF [place] CORONARY ARTERY W/O ANG PCTRS (3) Diabetes mellitus type 2 in nonobese Code(s): E11.9 - TYPE 2 DIABETES MELLITUS WITHOUT COMPLICATIONS (4) Acute and chronic respiratory failure Code(s): J96.20 - ACUTE AND CHR RESP FAILURE, UNSP W HYPOXIA OR HYPERCAPNIA (5) Asasn-ps-bahfwmf kidney injury Code(s): N17.9 - ACUTE KIDNEY FAILURE, UNSPECIFIED N18.9 - CHRONIC KIDNEY DISEASE, UNSPECIFIED (6) Sleep apnea Code(s): G47.30 - SLEEP APNEA, UNSPECIFIED
[2016-09-30] MEDS: CHOLECALCIFEROL (VITAMIN D3) 1,000 UNIT TABLET (FP) PO SCH (10:00)
[2016-09-30] MEDS: METOPROLOL SUCCINATE 50 MG TAB.SR.24H (FP) PO SCH (10:01)
[2016-09-30] MEDS: ENOXAPARIN NA (PORCINE) 40 MG/0.4 ML DISP.SYRIN SQ SCH (10:01)
[2016-09-30] MEDS: ASPIRIN 81 MG CHEWABLE TABLETS PO SCH (10:01)
[2016-09-30] MEDS: BUDESONIDE/FORMETEROL FUMARATE 160/4.5 mcg INHALER IH SCH ×2 (10:08→21:45)
[2016-09-30] MEDS: TIOTROPIUM BROMIDE 18 MCG/INH (DEVICE W/ 5 CAPSULES) IH SCH (10:09)
--- NOTE | 2016-09-30 10:49 | PN ---
Progress Note, Physician History of Present Illness: Patient feeling better today. Blood sugar was very high yesterday (500's) down in to 200's today. Did have an episode were he felt weak./ off-balanced when he walked without oxygen in hallway yesterday. - Current Medication List Current Medications: Active Medications Albuterol Sulfate (Ventolin 0.083% Nebulizer Soln -) 1 amp NEB Q4H PRN PRN Reason: SHORT OF BREATH/WHEEZING Last Admin: 09/29/16 11:48 Dose: 1 amp Allopurinol (Zyloprim -) 50 mg PO HS [facility] Last Admin: 09/29/16 21:29 Dose: 50 mg Aspirin (Asa -) 81 mg PO DAILY [facility] Last Admin: 09/30/16 10:01 Dose: 81 mg Atorvastatin Calcium (Lipitor -) 20 mg PO HS [facility] Last Admin: 09/29/16 21:29 Dose: 20 mg Budesonide/Formoterol Fumarate (Symbicort 160/4.5mcg -) 2 puff IH BID [facility] Last Admin: 09/30/16 10:08 Dose: 2 puff Cholecalciferol (Vitamin D3 -) 2,000 unit PO DAILY [facility] Last Admin: 09/30/16 10:00 Dose: 2,000 unit Ezetimibe (Zetia -) 10 mg PO HS [facility] Last Admin: 09/29/16 21:30 Dose: 10 mg Enoxaparin Sodium (Lovenox -) 40 mg SQ DAILY [facility] Last Admin: 09/30/16 10:01 Dose: 40 mg Insulin Aspart (Novolog Vial Sliding Scale -) 1 vial SQ ACHS [facility] PRN Reason: Protocol Last Admin: 09/30/16 06:35 Dose: 2 units Insulin Detemir (Levemir Vial) 20 units SQ BIDI [facility] Last Admin: 09/30/16 06:34 Dose: 20 units Methylprednisolone Sodium Succinate (Solu-Medrol -) 60 mg IVPB Q8H-IV [facility] Last Admin: 09/30/16 10:01 Dose: 60 mg Metoprolol Succinate (Toprol Xl -) 50 mg PO DAILY [facility] Last Admin: 09/30/16 10:01 Dose: 50 mg Non-Formulary Medication (Docosahexanoic Acid/Epa [Fish Oil Concentrate Softgel] ) 1 each PO DAILY [facility] Non-Formulary Medication (Ubidecarenone/Vit E Acetate [Co Q-10 100 Mg Softgel]) 1 each PO DAILY [facility] Non-Formulary Medication (Trulicity) 0.75 mg SQ Sa@1900 [facility] Last Admin: 09/29/16 20:53 Dose: Not Given Senna (Senna -) 2 tab PO HS PRN PRN Reason: CONSTIPATION Tiotropium [place] (Spiriva -) 1 puff IH DAILY [facility] Last Admin: 09/30/16 10:09 Dose: 1 puff - Objective Vital Signs: Vital Signs Temperature 97.6 F 09/30/16 06:00 Pulse Rate 72 09/30/16 06:00 Respiratory Rate 18 09/30/16 06:00 Blood Pressure 133/73 09/30/16 06:00 O2 Sat by Pulse Oximetry (%) 96 09/29/16 21:00 Constitutional: Yes: No Distress, Calm HENT: Yes: Atraumatic, Normocephalic Neck: Yes: Supple, Trachea Midline Cardiovascular: Yes: Regular Rate and Rhythm, S1, S2. No: Murmur Respiratory: Yes: Regular, Rhonchi (bilaterally) Gastrointestinal: Yes: Normal Bowel Sounds, Soft. No: Distention, Tenderness Edema: No Labs: CBC, BMP 09/30/16 05:50 09/30/16 05:50 Problem List - Problems (1) Pulmonary fibrosis Code(s): J84.10 - PULMONARY FIBROSIS, UNSPECIFIED (2) Arteriosclerotic heart disease (ASHD) Code(s): I25.10 - ATHSCL HEART DISEASE OF [place] CORONARY ARTERY W/O ANG PCTRS (3) Diabetes mellitus type 2 in nonobese Code(s): E11.9 - TYPE 2 DIABETES MELLITUS WITHOUT COMPLICATIONS Assessment/Plan Current Active Problems Acute and chronic respiratory failure (Acute) Nzhls-zh-jdmfpoe kidney injury (Acute) CAD Pulmonary fibrosis (Acute) Sleep apnea (Acute) DM -IV steroids, nebs, spiriva started, O2 -ideally would like to r/o PE with CT angio of chest, but given renal insufficiency, awaiting V/Q scan (does have an abnormal baseline CXR though) - will also order venous dopplers of legs, but PE lower on differential as has been feeling much better with IV steroids
[2016-09-30] MEDS ORDERED: INSULIN DETEMIR 100 UNITS/ML MDV SQ ONE (18:41)
[2016-09-30] MEDS: EZETIMIBE 10 MG TABLET (FP) PO SCH (21:45)
[2016-09-30] MEDS: ATORVASTATIN CA 20 MG TABLET (FP) PO SCH (21:45)
[2016-09-30] MEDS: ALLOPURINOL 100 MG TABLET (FP) PO SCH (21:46)
[2016-10-01] MEDS: methylPREDNISolone NA SUCC 125 MG/2 ML VIAL IVPB SCH ×3 (00:59→18:11)
[2016-10-01] MEDS: INSULIN DETEMIR 100 UNITS/ML MDV SQ SCH ×2 (06:13→16:38)
[2016-10-01] MEDS: INSULIN SLIDING SCALE (NOVOLOG) 1 VIAL SQ SCH ×4 (06:13→23:14)
[2016-10-01 07:24] LABS: MCHC 33.1 g/dl (32.0-35.9); MEAN CELL VOLUME 93.6 fl (80-96); MEAN PLT VOLUME 8.4 fl (7.5-11.1); PLATELET COUNT 175 K/MM3 (134-434); RDW 13.8 % (11.9-15.9); WHITE BLOOD COUNT 19.9 K/mm3 (4.0-10.0)
[2016-10-01 07:30] LABS: ALBUMIN 2.9 g/dl (3.4-5.0); ANION GAP 8 (8-16); CO2 26 mmol/L (21-32); CREATININE 1.6 mg/dL (0.7-1.3); GLUCOSE,RANDOM 199 mg/dL (74-106); SGOT/AST 16 U/L (15-37); SGPT/ALT 44 U/L (12-78)
[2016-10-01 07:32] LABS: ALK PHOS 68 U/L (45-117); BILIRUBIN,TOTAL 0.5 mg/dL (0.2-1.0); TOT PROT 6.3 g/dl (6.4-8.2)
[2016-10-01] MEDS: METOPROLOL SUCCINATE 50 MG TAB.SR.24H (FP) PO SCH (09:23)
[2016-10-01] MEDS: ASPIRIN 81 MG CHEWABLE TABLETS PO SCH (09:23)
[2016-10-01] MEDS: CHOLECALCIFEROL (VITAMIN D3) 1,000 UNIT TABLET (FP) PO SCH (09:23)
[2016-10-01] MEDS: BUDESONIDE/FORMETEROL FUMARATE 160/4.5 mcg INHALER IH SCH ×2 (09:26→23:16)
[2016-10-01] MEDS: TIOTROPIUM BROMIDE 18 MCG/INH (DEVICE W/ 5 CAPSULES) IH SCH (09:27)
--- NOTE | 2016-10-01 10:00 | PN ---
Progress Note, Physician Chief Complaint: Less SOB today History of Present Illness: patient returned from vacation with increasing SOB and uncontrolled DM. Better on IV Steroids but BGM's elevated. Takes varying doses of long and short acting insulins at home; will ask Endo MD to evaluate. Seen by Cardiology and Pulmonary MD's. - Current Medication List Current Medications: Active Medications Albuterol Sulfate (Ventolin 0.083% Nebulizer Soln -) 1 amp NEB Q4H PRN PRN Reason: SHORT OF BREATH/WHEEZING Last Admin: 09/29/16 11:48 Dose: 1 amp Allopurinol (Zyloprim -) 50 mg PO HS [facility] Last Admin: 09/30/16 21:46 Dose: 50 mg Aspirin (Asa -) 81 mg PO DAILY [facility] Last Admin: 10/01/16 09:23 Dose: 81 mg Atorvastatin [place]cium (Lipitor -) 20 mg PO HS [facility] Last Admin: 09/30/16 21:45 Dose: 20 mg Budesonide/Formoterol Fumarate (Symbicort 160/4.5mcg -) 2 puff IH BID [facility] Last Admin: 10/01/16 09:26 Dose: 2 puff Cholecalciferol (Vitamin D3 -) 2,000 unit PO DAILY [facility] Last Admin: 10/01/16 09:23 Dose: 2,000 unit Ezetimibe (Zetia -) 10 mg PO HS [facility] Last Admin: 09/30/16 21:45 Dose: 10 mg Enoxaparin Sodium (Lovenox -) 40 mg SQ DAILY [facility] Last Admin: 09/30/16 10:01 Dose: 40 mg Insulin Aspart (Novolog Vial Sliding Scale -) 1 vial SQ ACHS [facility] PRN Reason: Protocol Last Admin: 10/01/16 06:13 Dose: 2 units Insulin Detemir (Levemir Vial) 20 units SQ BIDI [facility] Last Admin: 10/01/16 06:13 Dose: 20 units Methylprednisolone Sodium Succinate (Solu-Medrol -) 60 mg IVPB Q8H-IV [facility] Last Admin: 10/01/16 09:22 Dose: 60 mg Metoprolol Succinate (Toprol Xl -) 50 mg PO DAILY [facility] Last Admin: 10/01/16 09:23 Dose: 50 mg Non-Formulary Medication (Docosahexanoic Acid/Epa [Fish Oil Concentrate Softgel] ) 1 each PO DAILY [facility] Non-Formulary Medication (Ubidecarenone/Vit E Acetate [Co Q-10 100 Mg Softgel]) 1 each PO DAILY [place] Non-Formulary Medication (Trulicity) 0.75 mg SQ Sa@1900 [facility] Last Admin: 09/29/16 20:53 Dose: Not Given Senna (Senna -) 2 tab PO HS PRN PRN Reason: CONSTIPATION Tiotropium [place] (Spiriva -) 1 puff IH DAILY [facility] Last Admin: 10/01/16 09:27 Dose: 1 puff - Objective Vital Signs: Vital Signs Temperature 98.3 F 10/01/16 08:12 Pulse Rate 77 10/01/16 08:12 Respiratory Rate 18 10/01/16 08:15 Blood Pressure 139/84 10/01/16 08:12 O2 Sat by Pulse Oximetry (%) 97 10/01/16 08:15 Constitutional: Yes: Calm Cardiovascular: Yes: Regular Rate and Rhythm Respiratory: Yes: Diminished. No: Wheezes Gastrointestinal: Yes: Soft, Abdomen, Obese Genitourinary: No: Pugh Present Edema: No Neurological: Yes: Alert, Oriented Labs: CBC, BMP 10/01/16 05:35 10/01/16 05:35 Problem List - Problems (1) Acute and chronic respiratory failure Assessment/Plan: Better on IV steroids but still low pulse Oxygen. Code(s): J96.20 - ACUTE AND CHR RESP FAILURE, UNSP W HYPOXIA OR HYPERCAPNIA (2) Dvwpj-bj-mckafgy kidney injury Assessment/Plan: To follow. Code(s): N17.9 - ACUTE KIDNEY FAILURE, UNSPECIFIED N18.9 - CHRONIC KIDNEY DISEASE, UNSPECIFIED (3) Pulmonary fibrosis Assessment/Plan: Chronic problem and followed by Pulmonary MD. On aerosol and steroid Rx. Code(s): J84.10 - PULMONARY FIBROSIS, UNSPECIFIED (4) Diabetes mellitus type 2 in nonobese Assessment/Plan: Out of control exacerbated by IV steroids. To consult his Endocrinology MD. Code(s): E11.9 - TYPE 2 DIABETES MELLITUS WITHOUT COMPLICATIONS
[2016-10-01] MEDS: ENOXAPARIN NA (PORCINE) 40 MG/0.4 ML DISP.SYRIN SQ SCH (11:18)
--- NOTE | 2016-10-01 11:22 | PN ---
Progress Note, Physician History of Present Illness: PULMONARY ALERT,FEELING BETTER,LESS DYSPNEIC. O2 SAT 96% ON O2 - Current Medication List Current Medications: Active Medications Albuterol Sulfate (Ventolin 0.083% Nebulizer Soln -) 1 amp NEB Q4H PRN PRN Reason: SHORT OF BREATH/WHEEZING Last Admin: 09/29/16 11:48 Dose: 1 amp Allopurinol (Zyloprim -) 50 mg PO HS [facility] Last Admin: 09/30/16 21:46 Dose: 50 mg Aspirin (Asa -) 81 mg PO DAILY [facility] Last Admin: 10/01/16 09:23 Dose: 81 mg Atorvastatin Calcium (Lipitor -) 20 mg PO HS [facility] Last Admin: 09/30/16 21:45 Dose: 20 mg Budesonide/Formoterol Fumarate (Symbicort 160/4.5mcg -) 2 puff IH BID [facility] Last Admin: 10/01/16 09:26 Dose: 2 puff Cholecalciferol (Vitamin D3 -) 2,000 unit PO DAILY [facility] Last Admin: 10/01/16 09:23 Dose: 2,000 unit Ezetimibe (Zetia -) 10 mg PO HS [facility] Last Admin: 09/30/16 21:45 Dose: 10 mg Enoxaparin Sodium (Lovenox -) 40 mg SQ DAILY [facility] Last Admin: 09/30/16 10:01 Dose: 40 mg Insulin Aspart (Novolog Vial Sliding Scale -) 1 vial SQ ACHS [facility] PRN Reason: Protocol Last Admin: 10/01/16 06:13 Dose: 2 units Insulin Detemir (Levemir Vial) 20 units SQ BIDI [facility] Last Admin: 10/01/16 06:13 Dose: 20 units Methylprednisolone Sodium Succinate (Solu-Medrol -) 60 mg IVPB Q8H-IV [facility] Last Admin: 10/01/16 09:22 Dose: 60 mg Metoprolol Succinate (Toprol Xl -) 50 mg PO DAILY [facility] Last Admin: 10/01/16 09:23 Dose: 50 mg Non-Formulary Medication (Docosahexanoic Acid/Epa [Fish Oil Concentrate Softgel] ) 1 each PO DAILY [facility] Non-Formulary Medication (Ubidecarenone/Vit E Acetate [Co Q-10 100 Mg Softgel]) 1 each PO DAILY [facility] Non-Formulary Medication (Trulicity) 0.75 mg SQ Sa@1900 [facility] Last Admin: 09/29/16 20:53 Dose: Not Given Senna (Senna -) 2 tab PO HS PRN PRN Reason: CONSTIPATION Tiotropium [place] (Spiriva -) 1 puff IH DAILY [facility] Last Admin: 10/01/16 09:27 Dose: 1 puff - Objective Vital Signs: Vital Signs Temperature 98.3 F 10/01/16 08:12 Pulse Rate 77 10/01/16 08:12 Respiratory Rate 18 10/01/16 08:15 Blood Pressure 139/84 10/01/16 08:12 O2 Sat by Pulse Oximetry (%) 97 10/01/16 08:15 Constitutional: Yes: Well Nourished, Calm Eyes: Yes: WNL HENT: Yes: WNL Neck: Yes: WNL Cardiovascular: Yes: Regular Rate and Rhythm, S1, S2 Respiratory: Yes: Rales (BILATERAL CRACKLES THROUGHOUT) Gastrointestinal: Yes: Normal Bowel Sounds, Soft Extremities: Yes: WNL Edema: No Labs: CBC, BMP 10/01/16 05:35 10/01/16 05:35 Problem List - Problems (1) Pulmonary fibrosis Code(s): J84.10 - PULMONARY FIBROSIS, UNSPECIFIED (2) Arteriosclerotic heart disease (ASHD) Code(s): I25.10 - ATHSCL HEART DISEASE OF [place] CORONARY ARTERY W/O ANG PCTRS (3) Diabetes mellitus type 2 in nonobese Code(s): E11.9 - TYPE 2 DIABETES MELLITUS WITHOUT COMPLICATIONS (4) Acute and chronic respiratory failure Code(s): J96.20 - ACUTE AND CHR RESP FAILURE, UNSP W HYPOXIA OR HYPERCAPNIA (5) Mozgd-sf-opdcbli kidney injury Code(s): N17.9 - ACUTE KIDNEY FAILURE, UNSPECIFIED N18.9 - CHRONIC KIDNEY DISEASE, UNSPECIFIED (6) Sleep apnea Code(s): G47.30 - SLEEP APNEA, UNSPECIFIED Assessment/Plan IMP ACUTE ON CHRONIC HYPOXEMIC RESPIRATORY FAILURE ADVANCE PULMONARY FIBROSIS PULMONARY HTN ASHD S/P OK,S/P STENTS DM ACUTE ON CHRONIC KIDNEY DISEASE HTN OSAS PLAN STEROID TAPER SUPPLEMENTAL O2 INHALED BRONCHODILATORS MONITOR LYTES,RENAL FUNCTION GLYCEMIC CONTROL BiPAP AT NIGHT PULMONARY REHAB POST DISCHARGE DR PALACIOS Problem List - Problems (1) Pulmonary fibrosis Code(s): J84.10 - PULMONARY FIBROSIS, UNSPECIFIED (2) Arteriosclerotic heart disease (ASHD) Code(s): I25.10 - ATHSCL HEART DISEASE OF [place] CORONARY ARTERY W/O ANG PCTRS (3) Diabetes mellitus type 2 in nonobese Code(s): E11.9 - TYPE 2 DIABETES MELLITUS WITHOUT COMPLICATIONS (4) Acute and chronic respiratory failure Code(s): J96.20 - ACUTE AND CHR RESP FAILURE, UNSP W HYPOXIA OR HYPERCAPNIA (5) Ryduo-ri-zzrscsl kidney injury Code(s): N17.9 - ACUTE KIDNEY FAILURE, UNSPECIFIED N18.9 - CHRONIC KIDNEY DISEASE, UNSPECIFIED (6) Sleep apnea Code(s): G47.30 - SLEEP APNEA, UNSPECIFIED
[2016-10-01] MEDS ORDERED: INSULIN (NOVOLOG) ASPART 100 UNITS/ML 10ML VIAL ONE ×3 (11:23→23:13)
--- NOTE | 2016-10-01 13:55 | CONSULT ---
Consult Consult Specialty:: Endocrinology- Dr. Lore Christianson Reason for Consultation:: Hyperglycemia on insulin - History of Present Illness Chief Complaint: Poorly controlled insulin dependent diabetes while on admission and on steroids History of Present Illness: A known insulin dependent diabetic on determir and aspart, with fluctuating high blood glucose currently on prednisone for interstitial fibrosis, s/p CT and stent (10years). Patient returned from a trip to [place] where he was oxygen dependent, with SOB. At his out patient cardiology clinic 3 days ago (09/28), he was found to be in [facility] and was admitted through the emergency room. Patient said his prior insulin was am and and pm for both aspart and determir. While on admission, he has had a therapeutic substitution of aspart for Insulin Apdira/humalog/regular- 1 unit on sliding scale see below: Date 09/28 09/29 09/30 10/01 Times/dose 22.31 (2 units) 6.45 (4 units) 6.35 (2 units) 6.13 ( 2units) 12.18 (10 units) 12.01 (10 units) 11.25 (2 units) 17.25 (8units) 18.02 (8 units) 21.30 (4 units) 21.46 (10 units) Determir given at 20 units see below: Date/ Times 09/29 09/30 10/01 17.25 (20 units) 6.34 (20 units) 6.13 (20 units) 18.07 (20units) Patient is on 60 mg of iv. methylprednisone since 09/30 and 50 mg metoprolol daily Also had 1 dose of trulicity 0.75mg on 09/29. Laboratory Tests 09/30/16 09/30/16 09/30/16 11:53 17:55 21:42 Neutrophils % Lymphocytes % Monocytes % POC Glucometer 418 364 402 Random Glucose Calcium Total Bilirubin AST ALT Alkaline Phosphatase Total Protein Albumin 10/01/16 10/01/16 10/01/16 05:35 05:35 06:04 Neutrophils % 95.0 H Lymphocytes % 2.6 L D Monocytes % 2.4 L POC Glucometer 221 Random Glucose 199 H D Calcium 9.0 Total Bilirubin 0.5 D AST 16 D ALT 44 Alkaline Phosphatase 68 Total Protein 6.3 L Albumin 2.9 L 10/01/16 11:21 Neutrophils % Lymphocytes % Monocytes % POC Glucometer 295 Random Glucose Calcium Total Bilirubin AST ALT Alkaline Phosphatase Total Protein Albumin - History Source History Provided By: Patient, Family Member Limitations to Obtaining History: No Limitations - Past Medical History Cardio/Vascular: Yes: CT, Pulmonary Hypertension Pulmonary: Yes: COPD, Pulmonary Fibrosis Renal/: Yes: BPH, Hematuria Psych: Yes: Anxiety - Past Surgical History Past Surgical History: Yes: Appendectomy, Cataract Removal (coronary artery stent by history. 2010 3 stents placed), Stent - Alcohol/Substance Use Hx Alcohol Use: No (denies) History of Substance Use: reports: None - Smoking History Smoking history: Former smoker Have you smoked in the past 12 months: No Aproximately how many cigarettes per day: 0 If you are a former smoker, when did you quit?: 1989 - Social History ADL: Independent Occupation: retired secondary to disability History of Recent Travel: No Home Medications - Allergies Allergies/Adverse Reactions: Allergies Allergy/AdvReac Type Severity Reaction Status Date / Time No Known Drug Allergies Allergy Verified 09/28/16 13:50 - Home Medications Home Medications: Ambulatory Orders Ezetimibe [Zetia -] 10 mg PO HS 01/14/12 Allopurinol [Zyloprim -] 50 mg PO HS 12/09/12 Docosahexanoic Acid/Epa [Fish Oil Concentrate Softgel] 1 each PO DAILY 12/09/12 Prednisone [Deltasone -] 20 mg PO HS 07/16/14 Aspirin [ASA -] 81 mg PO DAILY #0 07/20/14 Cholecalciferol (Vitamin D3) [Vitamin D3] 2,000 unit PO DAILY 07/20/14 Ubidecarenone/Vit E Acetate [Co Q-10 100 mg Softgel] 1 each PO DAILY 07/20/14 Insulin (Novolog 70/30) [Novolog Mix 70/30 Flexpen -] 10 - 25 units SQ DAILY Pitavastatin Calcium [Livalo] 4 mg PO DAILY 08/15/14 Sennosides [Senna -] 2 tab PO HS PRN #0 tablet 08/19/14 Albuterol Sulfate [Proair Respiclick] 2 puff IH QID 09/28/16 Diltiazem Cd [Cardizem Cd -] 180 mg PO DAILY 09/28/16 Insulin (Levemir) [Levemir Vial] 8 - 28 units SQ BID 09/28/16 Family Disease History - Family Disease History Family Disease History: Diabetes: Brother, Heart Disease: Father, Other: Mother (dementia) Review of Systems - Review of Systems Respiratory: reports: Exercise Intolerance (On intranasal oxygen) Gastrointestinal: reports: No Symptoms. denies: Abdominal Pain, Nausea, Vomiting Musculoskeletal: denies: Extremity Pain Neurological: denies: Change in LOC Physical Exam Vital Signs: Vital Signs Temperature 98.3 F 10/01/16 08:12 Pulse Rate 77 10/01/16 08:12 Respiratory Rate 18 10/01/16 08:15 Blood Pressure 139/84 10/01/16 08:12 O2 Sat by Pulse Oximetry (%) 97 10/01/16 08:15 Constitutional: Yes: Obese. No: Pallor Eyes: No: Sclera Icterus HENT: Yes: Atraumatic Cardiovascular: Yes: Regular Rate and Rhythm, S1, S2. No: Murmur Respiratory: Yes: On Nasal O2, Rales (Crepitations middle and lower lung) Gastrointestinal: Yes: Soft, Abdomen, Obese. No: Tenderness Edema: No Peripheral Pulses WNL: Yes Integumentary: Yes: Bruising (Subcutaneous bruise over R upper limb, left shoulder) Labs: CBC, BMP 10/01/16 05:35 10/01/16 05:35 Problem List - Problems (1) Diabetes type 2, uncontrolled Code(s): E11.65 - TYPE 2 DIABETES MELLITUS WITH HYPERGLYCEMIA Assessment/Plan Type 2 Diabetes with hyperglycemia- on high dose of steroids (Solumed 60mg q8) Plan Discussed with Dr. Christianson: 1. Increase levemir to 26 units daily 2. Give Novolog qAC as per new sliding scale below: Less than 70 - 0 units 70-11 4 units 111-150 8units 151-190 10units 191-230 12 units 230-300 14 units above 300 16 units 3. Give Novolog HS as per sliding scale less than 150 0 units 151-200 4 units 201-250 6 units 251-300 8 units above 300 10 units above 400 12 units Visit type - Emergency Visit Emergency Visit: No - New Patient This patient is new to me today: No - Critical Care Critical Care patient: No
--- NOTE | 2016-10-01 21:44 | PN ---
Progress Note (short form) - Note Progress Note: 70 year old male known case of CAD S/P MO S/P PCI/stenting,angina pectoris,DM, hypertension,interstitial pulmonary disease,admited with severs SOB and found to be in CHF.He has mild SOB,No PND or orthpnea,no chest pain or discomfort. Active Medications Albuterol Sulfate (Ventolin 0.083% Nebulizer Soln -) 1 amp NEB Q4H PRN PRN Reason: SHORT OF BREATH/WHEEZING Last Admin: 09/29/16 11:48 Dose: 1 amp Allopurinol (Zyloprim -) 50 mg PO HS [facility] Last Admin: 09/28/16 22:30 Dose: 50 mg Aspirin (Asa -) 81 mg PO DAILY [facility] Last Admin: 09/29/16 09:53 Dose: 81 mg Atorvastatin Calcium (Lipitor -) 20 mg PO HS [facility] Last Admin: 09/28/16 22:30 Dose: 20 mg Budesonide/Formoterol Fumarate (Symbicort 160/4.5mcg -) 2 puff IH BID [facility] Last Admin: 09/29/16 12:19 Dose: 2 puff Cholecalciferol (Vitamin D3 -) 2,000 unit PO DAILY [facility] Last Admin: 09/29/16 09:53 Dose: 2,000 unit Ezetimibe (Zetia -) 10 mg PO HS [facility] Last Admin: 09/28/16 22:40 Dose: 10 mg Enoxaparin Sodium (Lovenox -) 40 mg SQ DAILY [facility] Last Admin: 09/29/16 09:53 Dose: 40 mg Insulin Aspart (Novolog Vial Sliding Scale -) 1 vial SQ ACHS [facility] PRN Reason: Protocol Last Admin: 09/29/16 17:25 Dose: 8 units Insulin Detemir (Levemir Vial) 20 units SQ BIDI [facility] Last Admin: 09/29/16 17:25 Dose: 20 units Methylprednisolone Sodium Succinate (Solu-Medrol -) 80 mg IVPB Q8H-IV [facility] Last Admin: 09/29/16 17:24 Dose: 80 mg Metoprolol Succinate (Toprol Xl -) 50 mg PO DAILY [facility] Last Admin: 09/29/16 09:53 Dose: 50 mg Non-Formulary Medication (Docosahexanoic Acid/Epa [Fish Oil Concentrate Softgel] ) 1 each PO DAILY [facility] Non-Formulary Medication (Ubidecarenone/Vit E Acetate [Co Q-10 100 Mg Softgel]) 1 each PO DAILY [facility] Non-Formulary Medication (Trulicity) 0.75 mg SCJ [facility] [place] Senna (Senna -) 2 tab PO HS PRN PRN Reason: CONSTIPATION Tiotropium [place] (Spiriva -) 1 puff IH DAILY [facility] Last Admin: 09/29/16 14:23 Dose: 1 puff 70 year obese was in no distress, on pallor,cyanosis,clubbing or jaundice. Vital Signs - 8 hr 10/01/16 14:00 Temperature 97.7 F Pulse Rate 80 Respiratory 18 Rate Blood Pressure 163/82 NECK:Supple,-ve HJR,carotids 2+and equal,no bruits heard. HEART:PMI,not localised,no heves or thrills,no murmur or gallops heard. LUNGS:Fine creps. heard at both bases,no expiratory wheezing. ABDOMEN:Soft,obese,nontender,no hepatosplenomegaly. EXTREMITIES:No calf tenderness or dependent edema. Abnormal Lab Results 10/01/16 10/01/16 05:35 05:35 WBC 19.9 H Neutrophils % 95.0 H Lymphocytes % 2.6 L D Monocytes % 2.4 L BUN 60 H Creatinine 1.6 H Random Glucose 199 H D Total Protein 6.3 L Albumin 2.9 L IMPRESSION: 1. Congestive heart failure, resolving. 2. Diabetes mellitus 3. COPD/interstitial pulmonary disease. 4. Hypertesion. 5. Hypercholesterolemia. 6. CKD. RECOMMENDATION: 1. Continue Lasix 40mg.po daily 2. Daily weight. 3. BMP.
[2016-10-01] MEDS ORDERED: INSULIN DETEMIR 100 UNITS/ML MDV SQ SCH (22:00)
[2016-10-01] MEDS: ALLOPURINOL 100 MG TABLET (FP) PO SCH (23:15)
[2016-10-01] MEDS: ATORVASTATIN CA 20 MG TABLET (FP) PO SCH (23:15)
[2016-10-01] MEDS: EZETIMIBE 10 MG TABLET (FP) PO SCH (23:16)
[2016-10-02] MEDS: methylPREDNISolone NA SUCC 125 MG/2 ML VIAL IVPB SCH ×2 (01:05→09:11)
[2016-10-02] MEDS: INSULIN SLIDING SCALE (NOVOLOG) 1 VIAL SQ SCH ×4 (05:59→22:07)
[2016-10-02] MEDS: INSULIN DETEMIR 100 UNITS/ML MDV SQ SCH (06:00)
[2016-10-02] MEDS ORDERED: INSULIN DETEMIR 100 UNITS/ML MDV SQ SCH (07:00)
[2016-10-02 07:13] LABS: BASOPHIL 0.1 % (0-2.0); MCHC 33.4 g/dl (32.0-35.9); MEAN CELL VOLUME 92.7 fl (80-96); MEAN PLT VOLUME 8.5 fl (7.5-11.1); NEUTROPHILS 93.8 % (42.8-82.8); PLATELET COUNT 165 K/MM3 (134-434); RDW 13.2 % (11.9-15.9); WHITE BLOOD COUNT 14.8 K/mm3 (4.0-10.0)
[2016-10-02 07:47] LABS: ANION GAP 11 (8-16); CO2 23 mmol/L (21-32); CREATININE 1.5 mg/dL (0.7-1.3); GLUCOSE,RANDOM 284 mg/dL (74-106)
[2016-10-02] MEDS: METOPROLOL SUCCINATE 50 MG TAB.SR.24H (FP) PO SCH (09:12)
[2016-10-02] MEDS: ENOXAPARIN NA (PORCINE) 40 MG/0.4 ML DISP.SYRIN SQ SCH (09:12)
[2016-10-02] MEDS: CHOLECALCIFEROL (VITAMIN D3) 1,000 UNIT TABLET (FP) PO SCH (09:12)
[2016-10-02] MEDS: ASPIRIN 81 MG CHEWABLE TABLETS PO SCH (09:12)
[2016-10-02] MEDS: TIOTROPIUM BROMIDE 18 MCG/INH (DEVICE W/ 5 CAPSULES) IH SCH (09:15)
[2016-10-02] MEDS: BUDESONIDE/FORMETEROL FUMARATE 160/4.5 mcg INHALER IH SCH ×2 (09:15→22:08)
--- NOTE | 2016-10-02 11:21 | PN ---
Progress Note, Physician History of Present Illness: PULMONARY ALERT,FEELING BETTER,COMFORTABLE. - Current Medication List Current Medications: Active Medications Albuterol Sulfate (Ventolin 0.083% Nebulizer Soln -) 1 amp NEB Q4H PRN PRN Reason: SHORT OF BREATH/WHEEZING Last Admin: 09/29/16 11:48 Dose: 1 amp Allopurinol (Zyloprim -) 50 mg PO HS [facility] Last Admin: 10/01/16 23:15 Dose: 50 mg Aspirin (Asa -) 81 mg PO DAILY [facility] Last Admin: 10/02/16 09:12 Dose: 81 mg Atorvastatin Calcium (Lipitor -) 20 mg PO HS [facility] Last Admin: 10/01/16 23:15 Dose: 20 mg Budesonide/Formoterol Fumarate (Symbicort 160/4.5mcg -) 2 puff IH BID [facility] Last Admin: 10/02/16 09:15 Dose: 2 puff Cholecalciferol (Vitamin D3 -) 2,000 unit PO DAILY [facility] Last Admin: 10/02/16 09:12 Dose: 2,000 unit Ezetimibe (Zetia -) 10 mg PO HS [facility] Last Admin: 10/01/16 23:16 Dose: 10 mg Enoxaparin Sodium (Lovenox -) 40 mg SQ DAILY [facility] Last Admin: 10/02/16 09:12 Dose: 40 mg Insulin Aspart (Novolog Vial Sliding Scale -) 1 vial SQ TIDAC [facility] PRN Reason: Protocol Last Admin: 10/02/16 05:59 Dose: 14 units Insulin Aspart (Novolog Vial Sliding Scale -) 1 vial SQ HS [facility] PRN Reason: Protocol Last Admin: 10/01/16 23:14 Dose: 12 units Insulin Detemir (Levemir Vial) 28 units SQ AM [facility] Last Admin: 10/02/16 06:00 Dose: 28 units Methylprednisolone Sodium Succinate (Solu-Medrol -) 60 mg IVPB Q8H-IV [facility] Last Admin: 10/02/16 09:11 Dose: 60 mg Metoprolol Succinate (Toprol Xl -) 50 mg PO DAILY [facility] Last Admin: 10/02/16 09:12 Dose: 50 mg Non-Formulary Medication (Docosahexanoic Acid/Epa [Fish Oil Concentrate Softgel] ) 1 each PO DAILY [facility] Non-Formulary Medication (Ubidecarenone/Vit E Acetate [Co Q-10 100 Mg Softgel]) 1 each PO DAILY [facility] Non-Formulary Medication (Trulicity) 0.75 mg SQ Sa@1900 [facility] Last Admin: 09/29/16 20:53 Dose: Not Given Senna (Senna -) 2 tab PO HS PRN PRN Reason: CONSTIPATION Tiotropium [place] (Spiriva -) 1 puff IH DAILY [facility] Last Admin: 10/02/16 09:15 Dose: 1 puff - Objective Vital Signs: Vital Signs Temperature 97.8 F 10/02/16 07:05 Pulse Rate 70 10/02/16 07:05 Respiratory Rate 18 10/02/16 07:07 Blood Pressure 143/72 10/02/16 07:05 O2 Sat by Pulse Oximetry (%) 96 10/02/16 07:07 Constitutional: Yes: Well Nourished, Calm Eyes: Yes: WNL HENT: Yes: WNL Neck: Yes: WNL Cardiovascular: Yes: Regular Rate and Rhythm, S1, S2 Respiratory: Yes: Rales (BILATERAL RALES) Gastrointestinal: Yes: Normal Bowel Sounds, Soft Extremities: Yes: WNL Edema: No Labs: CBC, BMP 10/02/16 05:35 10/02/16 05:35 Problem List - Problems (1) Pulmonary fibrosis Code(s): J84.10 - PULMONARY FIBROSIS, UNSPECIFIED (2) Arteriosclerotic heart disease (ASHD) Code(s): I25.10 - ATHSCL HEART DISEASE OF [place] CORONARY ARTERY W/O ANG PCTRS (3) Diabetes mellitus type 2 in nonobese Code(s): E11.9 - TYPE 2 DIABETES MELLITUS WITHOUT COMPLICATIONS (4) Acute and chronic respiratory failure Code(s): J96.20 - ACUTE AND CHR RESP FAILURE, UNSP W HYPOXIA OR HYPERCAPNIA (5) Hiupb-iw-kmaojng kidney injury Code(s): N17.9 - ACUTE KIDNEY FAILURE, UNSPECIFIED N18.9 - CHRONIC KIDNEY DISEASE, UNSPECIFIED (6) Sleep apnea Code(s): G47.30 - SLEEP APNEA, UNSPECIFIED Assessment/Plan IMP ACUTE ON CHRONIC HYPOXEMIC RESPIRATORY FAILURE CLINICALLY IMPROVING ADVANCE PULMONARY FIBROSIS PULMONARY HTN ASHD S/P NM,S/P STENTS DM ACUTE ON CHRONIC KIDNEY DISEASE HTN OSAS PLAN CONTINUE STEROID TAPER SUPPLEMENTAL O2 INHALED BRONCHODILATORS MONITOR LYTES,RENAL FUNCTION GLYCEMIC CONTROL BiPAP AT NIGHT PULMONARY REHAB POST DISCHARGE DR PALACIOS Problem List - Problems (1) Pulmonary fibrosis Code(s): J84.10 - PULMONARY FIBROSIS, UNSPECIFIED (2) Arteriosclerotic heart disease (ASHD) Code(s): I25.10 - ATHSCL HEART DISEASE OF [place] CORONARY ARTERY W/O ANG PCTRS (3) Diabetes mellitus type 2 in nonobese Code(s): E11.9 - TYPE 2 DIABETES MELLITUS WITHOUT COMPLICATIONS (4) Acute and chronic respiratory failure Code(s): J96.20 - ACUTE AND CHR RESP FAILURE, UNSP W HYPOXIA OR HYPERCAPNIA (5) Cmsbw-zc-jczlfgq kidney injury Code(s): N17.9 - ACUTE KIDNEY FAILURE, UNSPECIFIED N18.9 - CHRONIC KIDNEY DISEASE, UNSPECIFIED (6) Sleep apnea Code(s): G47.30 - SLEEP APNEA, UNSPECIFIED
[2016-10-02] MEDS ORDERED: INSULIN (NOVOLOG) ASPART 100 UNITS/ML 10ML VIAL ONE (11:29)
--- NOTE | 2016-10-02 13:27 | PN ---
Progress Note, Physician Chief Complaint: Not sleeping well but feels less SOB. History of Present Illness: Patient with admission for increasing SOB feels better now with IV steroids and aerosol Rx. Dr. Pang tapering steroids dose and Dr. Christianson has suggested diabetic med changes. WBC is slowly decreasing but renal lab is slowly rising probable due to Steroids and uncontrolled DM. Will contact his regular Renal team for evaluation..Constipated; Rx wroitten and will F/U lab. He ambulates in hallways. - Current Medication List Current Medications: Active Medications Albuterol Sulfate (Ventolin 0.083% Nebulizer Soln -) 1 amp NEB Q4H PRN PRN Reason: SHORT OF BREATH/WHEEZING Last Admin: 09/29/16 11:48 Dose: 1 amp Allopurinol (Zyloprim -) 50 mg PO HS [facility] Last Admin: 10/01/16 23:15 Dose: 50 mg Aspirin (Asa -) 81 mg PO DAILY [facility] Last Admin: 10/02/16 09:12 Dose: 81 mg Atorvastatin Calcium (Lipitor -) 20 mg PO HS [facility] Last Admin: 10/01/16 23:15 Dose: 20 mg Budesonide/Formoterol Fumarate (Symbicort 160/4.5mcg -) 2 puff IH BID [facility] Last Admin: 10/02/16 09:15 Dose: 2 puff Cholecalciferol (Vitamin D3 -) 2,000 unit PO DAILY [facility] Last Admin: 10/02/16 09:12 Dose: 2,000 unit Ezetimibe (Zetia -) 10 mg PO HS [facility] Last Admin: 10/01/16 23:16 Dose: 10 mg Enoxaparin Sodium (Lovenox -) 40 mg SQ DAILY [facility] Last Admin: 10/02/16 09:12 Dose: 40 mg Insulin Aspart (Novolog Vial Sliding Scale -) 1 vial SQ TIDAC [facility] PRN Reason: Protocol Last Admin: 10/02/16 11:42 Dose: 14 units Insulin Aspart (Novolog Vial Sliding Scale -) 1 vial SQ HS [facility] PRN Reason: Protocol Last Admin: 10/01/16 23:14 Dose: 12 units Insulin Detemir (Levemir Vial) 28 units SQ AM [facility] Last Admin: 10/02/16 06:00 Dose: 28 units Methylprednisolone Sodium Succinate (Solu-Medrol -) 40 mg IVPB Q8H-IV [facility] Metoprolol Succinate (Toprol Xl -) 50 mg PO DAILY [facility] Last Admin: 10/02/16 09:12 Dose: 50 mg Non-Formulary Medication (Docosahexanoic Acid/Epa [Fish Oil Concentrate Softgel] ) 1 each PO DAILY [facility] Non-Formulary Medication (Ubidecarenone/Vit E Acetate [Co Q-10 100 Mg Softgel]) 1 each PO DAILY [facility] Non-Formulary Medication (Trulicity) 0.75 mg SQ Sa@1900 [facility] Last Admin: 09/29/16 20:53 Dose: Not Given Polyethylene Glycol (Miralax (For Daily Use) -) 17 gm PO DAILY [facility] Senna (Senna -) 2 tab PO HS PRN PRN Reason: CONSTIPATION Tiotropium [place] (Spiriva -) 1 puff IH DAILY [facility] Last Admin: 10/02/16 09:15 Dose: 1 puff - Objective Vital Signs: Vital Signs Temperature 97.8 F 10/02/16 07:05 Pulse Rate 70 10/02/16 07:05 Respiratory Rate 18 10/02/16 07:07 Blood Pressure 143/72 10/02/16 07:05 O2 Sat by Pulse Oximetry (%) 96 10/02/16 07:07 Constitutional: Yes: Calm Eyes: Yes: Conjunctiva Clear Cardiovascular: Yes: Regular Rate and Rhythm Respiratory: Yes: Diminished. No: Wheezes Gastrointestinal: Yes: Soft, Distention. No: Tenderness Genitourinary: No: Pugh Present Edema: No Neurological: Yes: Alert, Oriented Labs: CBC, BMP 10/02/16 05:35 10/02/16 05:35 - ....Imaging Chest X-ray: Report Reviewed X-ray: Report Reviewed Problem List - Problems (1) Acute and chronic respiratory failure Assessment/Plan: Better on IV steroids and aerosol Rx. Seen by Dr. Pang today. Code(s): J96.20 - ACUTE AND CHR RESP FAILURE, UNSP W HYPOXIA OR HYPERCAPNIA (2) Pcjyn-ju-cjppjxo kidney injury Assessment/Plan: Slightly increased values probably due to Steroids and UNCONTROLLED DM. Code(s): N17.9 - ACUTE KIDNEY FAILURE, UNSPECIFIED N18.9 - CHRONIC KIDNEY DISEASE, UNSPECIFIED (3) Pulmonary fibrosis Assessment/Plan: Slightly worsened on CXR. Code(s): J84.10 - PULMONARY FIBROSIS, UNSPECIFIED (4) Diabetes mellitus type 2 in nonobese Assessment/Plan: Still uncontrolled but evaluated by Resident for Dr. Christianson. BGM coverage noted. Code(s): E11.9 - TYPE 2 DIABETES MELLITUS WITHOUT COMPLICATIONS
[2016-10-02] MEDS: POLYETHYLENE GLYCOL 3350 119 GM BTL PO SCH (15:58)
[2016-10-02] MEDS: methylPREDNISolone NA SUCC 40 MG/1 ML VIAL IVPB SCH (17:11)
--- NOTE | 2016-10-02 18:44 | PN ---
Progress Note (short form) - Note Progress Note: S: 70 year old male known case of hypertension, CAD S/P NV S/P PCI/stenting, angina pectoris,diabetese mellitus,interstitial pulmonary disease,admitted with severs SOB and found to be in CHF.He has mild SOB,No PND or orthpnea,no chest pain or discomfort. Active Medications: Albuterol Sulfate (Ventolin 0.083% Nebulizer Soln -) 1 amp NEB Q4H PRN PRN Reason: SHORT OF BREATH/WHEEZING Last Admin: 09/29/16 11:48 Dose: 1 amp Allopurinol (Zyloprim -) 50 mg PO HS [facility] Last Admin: 10/01/16 23:15 Dose: 50 mg Aspirin (Asa -) 81 mg PO DAILY [facility] Last Admin: 10/02/16 09:12 Dose: 81 mg Atorvastatin Calcium (Lipitor -) 20 mg PO HS [facility] Last Admin: 10/01/16 23:15 Dose: 20 mg Budesonide/Formoterol Fumarate (Symbicort 160/4.5mcg -) 2 puff IH BID [facility] Last Admin: 10/02/16 09:15 Dose: 2 puff Cholecalciferol (Vitamin D3 -) 2,000 unit PO DAILY [facility] Last Admin: 10/02/16 09:12 Dose: 2,000 unit Ezetimibe (Zetia -) 10 mg PO HS [facility] Last Admin: 10/01/16 23:16 Dose: 10 mg Enoxaparin Sodium (Lovenox -) 40 mg SQ DAILY [facility] Last Admin: 10/02/16 09:12 Dose: 40 mg Insulin Aspart (Novolog Vial Sliding Scale -) 1 vial SQ TIDAC [facility] PRN Reason: Protocol Last Admin: 10/02/16 17:12 Dose: 12 units Insulin Aspart (Novolog Vial Sliding Scale -) 1 vial SQ HS [facility] PRN Reason: Protocol Last Admin: 10/01/16 23:14 Dose: 12 units Insulin Detemir (Levemir Vial) 28 units SQ AM [facility] Last Admin: 10/02/16 06:00 Dose: 28 units Methylprednisolone Sodium Succinate (Solu-Medrol -) 40 mg IVPB Q8H-IV [facility] Last Admin: 10/02/16 17:11 Dose: 40 mg Metoprolol Succinate (Toprol Xl -) 50 mg PO DAILY [facility] Last Admin: 10/02/16 09:12 Dose: 50 mg Non-Formulary Medication (Docosahexanoic Acid/Epa [Fish Oil Concentrate Softgel] ) 1 each PO DAILY [facility] Non-Formulary Medication (Ubidecarenone/Vit E Acetate [Co Q-10 100 Mg Softgel]) 1 each PO DAILY [facility] Non-Formulary Medication (Trulicity) 0.75 mg SQ Sa@1900 [facility] Last Admin: 09/29/16 20:53 Dose: Not Given Polyethylene Glycol (Miralax (For Daily Use) -) 17 gm PO DAILY [facility] Last Admin: 10/02/16 15:58 Dose: 17 gm Senna (Senna -) 2 tab PO HS PRN PRN Reason: CONSTIPATION Tiotropium [place] (Spiriva -) 1 puff IH DAILY [facility] Last Admin: 10/02/16 09:15 Dose: 1 puff O: 70 year obese was in no distress, on pallor,cyanosis,clubbing or jaundice. Vital Signs - 8 hr 10/02/16 15:43 Temperature 97.7 F Pulse Rate 75 Respiratory 18 Rate Blood Pressure 152/67 NECK:Supple,-ve HJR,carotids 2+and equal,no bruits heard. HEART:PMI,not localised,no heves or thrills,no murmur or gallops heard. LUNGS:Fine creps. heard at both bases,no expiratory wheezing. ABDOMEN:Soft,obese,nontender,no hepatosplenomegaly. EXTREMITIES:No calf tenderness or dependent edema. IMPRESSION: 1. Interstitial pulmonary disease. 2. Diabetes mellitus 3. Cogestive heart disease. 4. Hypertension.. 5. Hypercholesterolemia. 6. CKD. 7. COPD RECOMMENDATION: 1. Will need diuretics. 2. Ambulation in progress on O2. 3. Echocardiogram,could be done as out patient.
[2016-10-02] MEDS: ATORVASTATIN CA 20 MG TABLET (FP) PO SCH (22:07)
[2016-10-02] MEDS: EZETIMIBE 10 MG TABLET (FP) PO SCH (22:08)
[2016-10-02] MEDS: ALLOPURINOL 100 MG TABLET (FP) PO SCH (22:08)
[2016-10-03] MEDS: methylPREDNISolone NA SUCC 40 MG/1 ML VIAL IVPB SCH ×2 (02:56→09:16)
[2016-10-03] MEDS ORDERED: INSULIN DETEMIR 100 UNITS/ML MDV SQ ONE (07:03)
[2016-10-03] MEDS ORDERED: INSULIN (NOVOLOG) ASPART 100 UNITS/ML 10ML VIAL ONE ×2 (07:03→12:05)
[2016-10-03] MEDS: INSULIN DETEMIR 100 UNITS/ML MDV SQ SCH (07:04)
[2016-10-03] MEDS: INSULIN SLIDING SCALE (NOVOLOG) 1 VIAL SQ SCH ×2 (07:04→12:08)
--- NOTE | 2016-10-03 08:46 | PN ---
Progress Note (short form) - Note Progress Note: Patient not sleeping because of disturbances from the other patient in his room. Slight coughing but less SOB. BGM;s are improved a bit. I will ask Pulmonary MD to switch to oral Rx for possible discharge. Had BM. On Exam: Vital Signs Temp 98.1 F 10/03/16 06:00 Pulse 67 10/03/16 06:00 Resp 20 10/03/16 06:00 BP 133/84 10/03/16 06:00 Pulse Ox 99 10/02/16 22:00 Intake & Output 10/02/16 10/02/16 10/03/16 11:59 23:59 11:59 Intake Total 460 Balance 460 Weight 200 lb 12.8 oz Intake: IV 10 lac 10 IVPB 50 Oral 400 Other: Voiding Method Toilet Toilet Toilet # Unmeasured Voids Void 1 1 Weight Measurement Method Standing Scale Alert Slighly anxious due to not sleeping well Chest: Rare fine wheeze right and left side Cor Reg: Abdomsn: Non tender Ext: No Edema; good DP Pulses BGM Schedule Start: 09/28/16 19:45 Freq: ACHS Status: Active Activity Type Activity Date Activity User Co-Sign Detail Recorded Client Recorded Date Recorded By Document 09/30/16 11:00 JODOMI [email or web address] 09/30/16 13:06 JODOMI Document 09/30/16 16:30 JODOMI [email or web address] 09/30/16 18:45 JODOMI Document 09/30/16 22:00 VC [id number] 09/30/16 23:11 VC Document 10/01/16 06:00 VC [id number] 10/01/16 06:25 VC Document 10/01/16 08:12 NS3 [email or web address] 10/01/16 08:12 NS3 Document 10/01/16 11:00 NS3 [email or web address] 10/01/16 11:26 NS3 Document 10/01/16 16:30 NS3 [id number] 10/01/16 16:48 NS3 Document 10/01/16 22:00 DC4 [id number] 10/02/16 02:28 DC4 Document 10/02/16 06:45 DC4 [id number] 10/02/16 06:45 DC4 Document 10/02/16 11:00 NS3 [id number] 10/02/16 11:28 NS3 Document 10/02/16 16:30 NS3 [id number] 10/02/16 17:10 NS3 Document 10/02/16 22:00 SK9 [id number] 10/03/16 01:22 SK9 Document 10/03/16 06:00 SK9 [id number] 10/03/16 06:30 SK9 IMP: COPD with Acute Exacerbation CHF Resolved Pulmonary Fibrosis ASHD DM Uncontrolled Acute on Chronic renal Failure Plan: Switch to oral Steroids if Pulmonary MD agrees Continue BGM Cardiology to add diuretic if he thinks patient requires it F/U Renal MD Problem List - Problems (1) Acute and chronic respiratory failure Code(s): J96.20 - ACUTE AND CHR RESP FAILURE, UNSP W HYPOXIA OR HYPERCAPNIA (2) Ijfzi-sf-bwmnbew kidney injury Code(s): N17.9 - ACUTE KIDNEY FAILURE, UNSPECIFIED N18.9 - CHRONIC KIDNEY DISEASE, UNSPECIFIED (3) Pulmonary fibrosis Code(s): J84.10 - PULMONARY FIBROSIS, UNSPECIFIED (4) Diabetes mellitus type 2 in nonobese Code(s): E11.9 - TYPE 2 DIABETES MELLITUS WITHOUT COMPLICATIONS
[2016-10-03] MEDS: CHOLECALCIFEROL (VITAMIN D3) 1,000 UNIT TABLET (FP) PO SCH (09:16)
[2016-10-03] MEDS: ENOXAPARIN NA (PORCINE) 40 MG/0.4 ML DISP.SYRIN SQ SCH (09:16)
[2016-10-03] MEDS: ASPIRIN 81 MG CHEWABLE TABLETS PO SCH (09:16)
[2016-10-03] MEDS: TIOTROPIUM BROMIDE 18 MCG/INH (DEVICE W/ 5 CAPSULES) IH SCH (09:17)
[2016-10-03] MEDS: BUDESONIDE/FORMETEROL FUMARATE 160/4.5 mcg INHALER IH SCH (09:17)
[2016-10-03] MEDS: POLYETHYLENE GLYCOL 3350 119 GM BTL PO SCH (09:17)
[2016-10-03] MEDS: METOPROLOL SUCCINATE 50 MG TAB.SR.24H (FP) PO SCH (09:18)
--- NOTE | 2016-10-03 11:05 | PN ---
Progress Note, Physician History of Present Illness: PULMONARY ALERT,OOB-CHAIR,-RESP DISTRESS. O2 SAT 95% ON RA AT REST. - Current Medication List Current Medications: Active Medications Albuterol Sulfate (Ventolin 0.083% Nebulizer Soln -) 1 amp NEB Q4H PRN PRN Reason: SHORT OF BREATH/WHEEZING Last Admin: 09/29/16 11:48 Dose: 1 amp Allopurinol (Zyloprim -) 50 mg PO HS [facility] Last Admin: 10/02/16 22:08 Dose: 50 mg Aspirin (Asa -) 81 mg PO DAILY [facility] Last Admin: 10/03/16 09:16 Dose: 81 mg Atorvastatin Calcium (Lipitor -) 20 mg PO HS [facility] Last Admin: 10/02/16 22:07 Dose: 20 mg Budesonide/Formoterol Fumarate (Symbicort 160/4.5mcg -) 2 puff IH BID [facility] Last Admin: 10/03/16 09:17 Dose: 2 puff Cholecalciferol (Vitamin D3 -) 2,000 unit PO DAILY [facility] Last Admin: 10/03/16 09:16 Dose: 2,000 unit Ezetimibe (Zetia -) 10 mg PO HS [facility] Last Admin: 10/02/16 22:08 Dose: 10 mg Enoxaparin Sodium (Lovenox -) 40 mg SQ DAILY [facility] Last Admin: 10/03/16 09:16 Dose: 40 mg Insulin Aspart (Novolog Vial Sliding Scale -) 1 vial SQ TIDAC [facility] PRN Reason: Protocol Last Admin: 10/03/16 07:04 Dose: 8 units Insulin Aspart (Novolog Vial Sliding Scale -) 1 vial SQ HS [facility] PRN Reason: Protocol Last Admin: 10/02/16 22:07 Dose: 10 units Insulin Detemir (Levemir Vial) 28 units SQ AM [facility] Last Admin: 10/03/16 07:04 Dose: 28 units Methylprednisolone Sodium Succinate (Solu-Medrol -) 40 mg IVPB Q8H-IV [facility] Last Admin: 10/03/16 09:16 Dose: 40 mg Metoprolol Succinate (Toprol Xl -) 50 mg PO DAILY [facility] Last Admin: 10/03/16 09:18 Dose: 50 mg Non-Formulary Medication (Docosahexanoic Acid/Epa [Fish Oil Concentrate Softgel] ) 1 each PO DAILY [facility] Non-Formulary Medication (Ubidecarenone/Vit E Acetate [Co Q-10 100 Mg Softgel]) 1 each PO DAILY [facility] Non-Formulary Medication (Trulicity) 0.75 mg SQ Sa@1900 [facility] Last Admin: 09/29/16 20:53 Dose: Not Given Polyethylene Glycol (Miralax (For Daily Use) -) 17 gm PO DAILY [facility] Last Admin: 10/03/16 09:17 Dose: Not Given Senna (Senna -) 2 tab PO HS PRN PRN Reason: CONSTIPATION Tiotropium [place] (Spiriva -) 1 puff IH DAILY [facility] Last Admin: 10/03/16 09:17 Dose: 1 puff - Objective Vital Signs: Vital Signs Temperature 98.1 F 10/03/16 06:00 Pulse Rate 67 10/03/16 06:00 Respiratory Rate 20 10/03/16 06:00 Blood Pressure 133/84 10/03/16 06:00 O2 Sat by Pulse Oximetry (%) 99 10/02/16 22:00 Constitutional: Yes: Well Nourished, Calm Eyes: Yes: WNL HENT: Yes: WNL Neck: Yes: WNL Cardiovascular: Yes: Regular Rate and Rhythm, S1, S2 Respiratory: Yes: Rales (HESHAM CRACKLES) Gastrointestinal: Yes: Normal Bowel Sounds, Soft Extremities: Yes: WNL Edema: No Labs: CBC, BMP 10/02/16 05:35 10/02/16 05:35 Problem List - Problems (1) Pulmonary fibrosis Code(s): J84.10 - PULMONARY FIBROSIS, UNSPECIFIED (2) Arteriosclerotic heart disease (ASHD) Code(s): I25.10 - ATHSCL HEART DISEASE OF [place] CORONARY ARTERY W/O ANG PCTRS (3) Diabetes mellitus type 2 in nonobese Code(s): E11.9 - TYPE 2 DIABETES MELLITUS WITHOUT COMPLICATIONS (4) Acute and chronic respiratory failure Code(s): J96.20 - ACUTE AND CHR RESP FAILURE, UNSP W HYPOXIA OR HYPERCAPNIA (5) Rpqey-bv-gqcawyp kidney injury Code(s): N17.9 - ACUTE KIDNEY FAILURE, UNSPECIFIED N18.9 - CHRONIC KIDNEY DISEASE, UNSPECIFIED (6) Sleep apnea Code(s): G47.30 - SLEEP APNEA, UNSPECIFIED Assessment/Plan IMP ACUTE ON CHRONIC HYPOXEMIC RESPIRATORY FAILURE CLINICALLY IMPROVED ADVANCE PULMONARY FIBROSIS PULMONARY HTN ASHD S/P TX,S/P STENTS DM ACUTE ON CHRONIC KIDNEY DISEASE HTN OSAS PLAN PREDNISONE 60MG SUPPLEMENTAL O2 INHALED BRONCHODILATORS COMPLIANCE WITH CPAP AT HOME PULMONARY REHAB POST DISCHARGE DR PALACIOS Problem List - Problems (1) Pulmonary fibrosis Code(s): J84.10 - PULMONARY FIBROSIS, UNSPECIFIED (2) Arteriosclerotic heart disease (ASHD) Code(s): I25.10 - ATHSCL HEART DISEASE OF [place] CORONARY ARTERY W/O ANG PCTRS (3) Diabetes mellitus type 2 in nonobese Code(s): E11.9 - TYPE 2 DIABETES MELLITUS WITHOUT COMPLICATIONS (4) Acute and chronic respiratory failure Code(s): J96.20 - ACUTE AND CHR RESP FAILURE, UNSP W HYPOXIA OR HYPERCAPNIA (5) Dulbq-jj-tcdhyuc kidney injury Code(s): N17.9 - ACUTE KIDNEY FAILURE, UNSPECIFIED N18.9 - CHRONIC KIDNEY DISEASE, UNSPECIFIED (6) Sleep apnea Code(s): G47.30 - SLEEP APNEA, UNSPECIFIED
--- NOTE | 2016-10-03 12:20 | PN ---
Progress Note (short form) - Note Progress Note: Pt is followed by Dr. Danny Boswell as outpatinet. Placed a consult for him to be seen. Dr. Boswell is aware. Lucas Amezquita DO
--- NOTE | 2016-10-03 13:19 | PN ---
Progress Note (short form) - Note Progress Note: S: 70 year old male known case of hypertension, CAD S/P ID S/P PCI/stenting, angina pectoris,diabetese mellitus,interstitial pulmonary disease,admitted with severe SOB and found to be in CHF. Patient ambulating with difficulty, mild exetional dyspnea. No chest pain or discomfort.Is being discharged to home Vital Signs - 8 hr 10/03/16 10/03/16 10/03/16 06:00 09:00 10:00 Temperature 98.1 F 97.5 F L Pulse Rate 67 73 Respiratory 20 20 Rate Blood Pressure 133/84 147/82 O2 Sat by Pulse 94 L 94 L Oximetry (%) O: 70 year obese was in no distress, on pallor,cyanosis,clubbing or jaundice. Current Medications Albuterol Sulfate (Ventolin 0.083% Nebulizer Soln -) 1 amp NEB Q4H PRN PRN Reason: SHORT OF BREATH/WHEEZING Last Admin: 09/29/16 11:48 Dose: 1 amp Allopurinol (Zyloprim -) 50 mg PO HS [facility] Last Admin: 10/02/16 22:08 Dose: 50 mg Aspirin (Asa -) 81 mg PO DAILY [facility] Last Admin: 10/03/16 09:16 Dose: 81 mg Atorvastatin Calcium (Lipitor -) 20 mg PO [facility] Last Admin: 10/02/16 22:07 Dose: 20 mg Budesonide/Formoterol Fumarate (Symbicort 160/4.5mcg -) 2 puff IH BID [facility] Last Admin: 10/03/16 09:17 Dose: 2 puff Cholecalciferol (Vitamin D3 -) 2,000 unit PO DAILY [facility] Last Admin: 10/03/16 09:16 Dose: 2,000 unit Ezetimibe (Zetia -) 10 mg PO HS [facility] Last Admin: 10/02/16 22:08 Dose: 10 mg Enoxaparin Sodium (Lovenox -) 40 mg SQ DAILY [facility] Last Admin: 10/03/16 09:16 Dose: 40 mg Insulin Aspart (Novolog Vial Sliding Scale -) 1 vial SQ [place] PRN Reason: Protocol Last Admin: 10/03/16 12:08 Dose: 10 units Insulin Aspart (Novolog Vial Sliding Scale -) 1 vial SQ HS [facility] PRN Reason: Protocol Last Admin: 10/02/16 22:07 Dose: 10 units Insulin Detemir (Levemir Vial) 28 units SQ AM [facility] Last Admin: 10/03/16 07:04 Dose: 28 units Methylprednisolone Sodium Succinate (Solu-Medrol -) 40 mg IVPB Q8H-IV [facility] Last Admin: 10/03/16 09:16 Dose: 40 mg Metoprolol Succinate (Toprol Xl -) 50 mg PO DAILY [facility] Last Admin: 10/03/16 09:18 Dose: 50 mg Non-Formulary Medication (Trulicity) 0.75 mg SQ Sa@1900 [facility] Last Admin: 09/29/16 20:53 Dose: Not Given Polyethylene Glycol (Miralax (For Daily Use) -) 17 gm PO DAILY [facility] Last Admin: 10/03/16 09:17 Dose: Not Given Senna (Senna -) 2 tab PO HS PRN PRN Reason: CONSTIPATION Tiotropium [place] (Spiriva -) 1 puff IH DAILY [facility] Last Admin: 10/03/16 09:17 Dose: 1 puff NECK:Supple,-ve HJR,carotids 2+and equal,no bruits heard. HEART:PMI,not localised,no heves or thrills,no murmur or gallops heard. LUNGS:Fine creps. heard at both bases,no expiratory wheezing. ABDOMEN:Soft,obese,nontender,no hepatosplenomegaly. EXTREMITIES:No calf tenderness or dependent edema. Vital Signs - 8 hr 10/03/16 10/03/16 10/03/16 06:00 09:00 10:00 Temperature 98.1 F 97.5 F L Pulse Rate 67 73 Respiratory 20 20 Rate Blood Pressure 133/84 147/82 O2 Sat by Pulse 94 L 94 L Oximetry (%) Intake & Output 10/02/16 10/03/16 10/03/16 23:59 07:59 15:59 Intake Total 400 Balance 400 Weight 200 lb 12.8 oz Intake: Oral 400 Other: Voiding Method Toilet Toilet Toilet # Unmeasured Voids Void 1 Weight Measurement Method Standing Scale IMPRESSION: 1. Interstitial pulmonary disease. 2. Diabetes mellitus 3. Cogestive heart disease. 4. Hypertension.. 5. Hypercholesterolemia. 6. CKD. 7. COPD RECOMMENDATION: 1. Will need diuretics. 2. Out patient follow upin the office. 3. Echocardiogram,could be done as out patient. 4. Pt. councelled regarding diet,salt restriction and weight loss. 5. Monitor weight on a daily basis and if he gains 2 lbs. notify
[2016-10-03 13:28] VITALS: BMI 31.4
--- NOTE | 2016-10-03 13:28 | CON.NEP ---
Consult Consult Specialty:: Nephrology (Jf/Alirio) Referred by:: Dr. Barnes Reason for Consultation:: CKD - History of Present Illness Chief Complaint: SOB History of Present Illness: This is a 70 year old gentleman with PMhx of Interstitial Lung disease, CHF, CKD Stage 3 (baseline cr 1.5) who presented with HEIN from cardiologists office and found to have exacerbation of ILD and mild CHF with Cr of 1.5. PT appears to be at baseline renal function this admission. Case discussed with Dr. Danny Boswell. Pt treated with IV steroids with improvement in respiratory status. - History Source History Provided By: Patient Limitations to Obtaining History: No Limitations - Past Medical History Cardio/Vascular: Yes: [place], Pulmonary Hypertension Pulmonary: Yes: COPD, Pulmonary Fibrosis Renal/: Yes: Renal Inusuff, BPH, Hematuria Psych: Yes: Anxiety - Past Surgical History Past Surgical History: Yes: Appendectomy, Cataract Removal (coronary artery stent by history. 2010 3 stents placed), Stent - Alcohol/Substance Use Hx Alcohol Use: No (denies) History of Substance Use: reports: None - Smoking History Smoking history: Former smoker Have you smoked in the past 12 months: No Aproximately how many cigarettes per day: 0 If you are a former smoker, when did you quit?: 1989 - Social History ADL: Independent Occupation: retired secondary to disability History of Recent Travel: No Home Medications - Allergies Allergies/Adverse Reactions: Allergies Allergy/AdvReac Type Severity Reaction Status Date / Time No Known Drug Allergies Allergy Verified 09/28/16 13:50 - Home Medications Home Medications: Ambulatory Orders Ezetimibe [Zetia -] 10 mg PO HS 01/14/12 Allopurinol [Zyloprim -] 50 mg PO HS 12/09/12 Docosahexanoic Acid/Epa [Fish Oil Concentrate Softgel] 1 each PO DAILY 12/09/12 Prednisone [Deltasone -] 20 mg PO HS 07/16/14 Aspirin [ASA -] 81 mg PO DAILY #0 07/20/14 Cholecalciferol (Vitamin D3) [Vitamin D3] 2,000 unit PO DAILY 07/20/14 Ubidecarenone/Vit E Acetate [Co Q-10 100 mg Softgel] 1 each PO DAILY 07/20/14 Insulin (Novolog 70/30) [Novolog Mix 70/30 Flexpen -] 10 - 25 units SQ DAILY Pitavastatin Calcium [Livalo] 4 mg PO DAILY 08/15/14 Sennosides [Senna -] 2 tab PO HS PRN #0 tablet 08/19/14 Albuterol Sulfate [Proair Respiclick] 2 puff IH QID 09/28/16 Diltiazem Cd [Cardizem Cd -] 180 mg PO DAILY 09/28/16 Insulin (Levemir) [Levemir Vial] 8 - 28 units SQ BID 09/28/16 Family Disease History - Family Disease History Family Disease History: Diabetes: Brother, Heart Disease: Father, Other: Mother (dementia) Review of Systems - Review of Systems Constitutional: reports: No Symptoms Eyes: reports: No Symptoms HENT: reports: No Symptoms Neck: reports: No Symptoms Cardiovascular: reports: Shortness of Breath. denies: Chest Pain, Edema, Palpitations Respiratory: reports: SOB, SOB on Exertion. denies: Cough, Hemoptysis Gastrointestinal: reports: No Symptoms Genitourinary: reports: No Symptoms Integumentary: reports: No Symptoms Neurological: reports: No Symptoms Nephrology Consult - Height Height: 5 ft 7 in - Weight Weight: 200 lb 12.8 oz - BMI Body Mass Index (BMI): 31.4 - Lab Results CBC,BMP: CBC, BMP 10/02/16 05:35 10/02/16 05:35 Anion Gap: Anion Gap Anion Gap 11 (8-16) 10/02/16 05:35 - Imaging Chest X-ray: Report Reviewed - Physical Examination Vital Signs: Vital Signs Temperature 97.5 F L 10/03/16 10:00 Pulse Rate 73 10/03/16 10:00 Respiratory Rate 20 10/03/16 10:00 Blood Pressure 147/82 10/03/16 10:00 O2 Sat by Pulse Oximetry (%) 94 L 10/03/16 10:00 Constitutional: Yes: Well Nourished, No Distress, Calm Eyes: Yes: Conjunctiva Clear HENT: Yes: Atraumatic Neck: Yes: Supple Cardiovascular: Yes: Regular Rate and Rhythm Respiratory: Yes: Regular, Diminished, Rhonchi Gastrointestinal: Yes: Normal Bowel Sounds, Soft Renal/: No: Anuria, Bladder Distention, CVA Tenderness - Left, CVA Tenderness - Right, Pugh Present Extremities: No: Cold, Cool, Cyanosis Edema: No Assessment/Plan 70 year old gentleman with PMhx of Interstitial Lung disease, CHF, CKD Stage 3 ( baseline cr 1.5) who presented with HEIN from cardiologists office and found to have exacerbation of ILD and mild CHF with Cr of 1.5. #CKD Stage 3b (eGFR 43) with proteinuria Likely etiology of CKD is diabetic nephropathy given proteinuria Elevated BUN due to steroids and not reflective of uremia pt is not on MINERVA/ARB (?hyperkalemia in the past), BP is above baseline as a inpatient but likely due to steroid effect can titrate BP meds as outpatient Check UPCR Dose all meds for eGFR < 45 avoid Nephrotoxins (i.e. NSAIDs, IV contrast if possible) Pt to follow with primary head automatic sawyer on discharge #HEIN/ILD/CHF no diuretics given and pt with improvement in symptoms taper steroids as per pulmonary Cardiology following #DM on Insulin continue insulin as per primary Thank you Will follow as inpatient.
[2016-10-03 14:07] VITALS: BP 147/77; PULSE 82; TEMP 98
== END 2016-10-03 14:43 | disposition home or self-care (01) | DRG 196 ==
LOC: JER 13:40 → JERBED 17:43 → J4W 20:40
PROVIDERS: ADMIT Specialist; ATTEND Specialist
DX: J84.10 Pulmonary fibrosis, unspecified (principal); J96.21 Acute and chronic respiratory failure with hypoxia; J44.1 Chronic obstructive pulmonary disease with (acute) exacerbation; I13.0 Hypertensive heart and chronic kidney disease with heart failure and stage 1 through stage 4 chronic kidney disease, or unspecified chronic kidney disease; N17.9 Acute kidney failure, unspecified; I25.119 Atherosclerotic heart disease of native coronary artery with unspecified angina pectoris; Z98.61 Coronary angioplasty status; I27.2 Other secondary pulmonary hypertension; G47.33 Obstructive sleep apnea (adult) (pediatric); E11.22 Type 2 diabetes mellitus with diabetic chronic kidney disease; E11.65 Type 2 diabetes mellitus with hyperglycemia; N18.3 Chronic kidney disease, stage 3 (moderate); I50.9 Heart failure, unspecified; Z87.891 Personal history of nicotine dependence
CPT/HCPCS: 36415; 71010-TC; 80048; 80053; 81003; 81015; 82553; 83880; 84484; 85025; 85379; 93005; 93010; 93970-TC; 94640; 94660; 99284-25

== ENCOUNTER 2016-10-31 10:48 | Inpatient (IN) | payer OTHER, BC ==
--- NOTE | 2016-10-31 11:33 | PDOC ---
History of Present Illness - General Chief Complaint: Edema Stated Complaint: EVALUATION (PCP SENT) Time Seen by Provider: 10/31/16 10:56 History Source: Patient, Spouse - History of Present Illness Timing/Duration: reports: other Associated Symptoms: reports: lightheadedness. denies: chest pain/soreness, cough, shortness of breath Past History - Past Medical History Allergies/Adverse Reactions: Allergies Allergy/AdvReac Type Severity Reaction Status Date / Time No Known Drug Allergies Allergy Verified 10/31/16 11:15 Home Medications: Ambulatory Orders Allopurinol [Zyloprim -] 50 mg PO HS 12/09/12 Docosahexanoic Acid/Epa [Fish Oil Concentrate Softgel] 1 each PO DAILY 12/09/12 Aspirin [ASA -] 81 mg PO DAILY #0 07/20/14 Cholecalciferol (Vitamin D3) [Vitamin D3] 2,000 unit PO DAILY 07/20/14 Ubidecarenone/Vit E Acetate [Co Q-10 100 mg Softgel] 1 each PO DAILY 07/20/14 Pitavastatin Calcium [Livalo] 4 mg PO DAILY 08/15/14 Sennosides [Senna -] 2 tab PO HS PRN #0 tablet 08/19/14 Albuterol Sulfate [Proair Respiclick] 2 puff IH QID 09/28/16 Albuterol 0.083% Nebulizer Belia [Ventolin 0.083% Nebulizer Soln -] 1 amp NEB Q4H PRN #0 amp 10/03/16 Budesonide/Formeterol Fumarate [SYMBICORT 160/4.5mcg -] 2 puff IH BID #1 inhaler 10/03/16 Insulin (Levemir) [Levemir Vial] 28 units SQ AM ml 10/03/16 Insulin Sliding Scale [Novolog Vial Sliding Scale -] 1 vial SQ HS units Insulin Sliding Scale [Novolog Vial Sliding Scale -] 1 vial SQ TIDAC units 11/11 Metoprolol Succinate [Toprol XL -] 50 mg PO DAILY #30 tab 10/03/16 Tiotropium [place] [Spiriva] 1 puff IH DAILY inh 10/03/16 Clopidogrel Bisulfate [Plavix -] 75 mg PO DAILY 10/31/16 Ezetimibe [Zetia] 10 mg PO DAILY 10/31/16 Furosemide [Lasix] 40 mg PO DAILY 10/31/16 Losartan Potassium 25 mg PO BID 10/31/16 Prednisone [Deltasone -] 10 mg PO HS 10/31/16 Anemia: No Asthma: No Cancer: No Cardiac Disorders: Yes ([place] 1991, CAD, PCI) CVA: No COPD: Yes CHF: No Dementia: No Diabetes: Yes GI Disorders: No Disorders: Yes (BPH) HTN: Yes Hypercholesterolemia: Yes Liver Disease: No Seizures: No Thyroid Disease: No - Surgical History Abdominal Surgery: Yes Appendectomy: Yes (1981) Cardiac Surgery: Yes (stents 2003) Cholecystectomy: No Lung Surgery: No Neurologic Surgery: No Orthopedic Surgery: Yes (rt knee 1995) - Immunization History Td Vaccination: Yes - Psycho/Social/Smoking Cessation Hx Anxiety: No Suicidal Ideation: No Smoking Status: No Smoking History: Former smoker Have you smoked in the past 12 months: No Number of Cigarettes Smoked Daily: 0 If you are a former smoker, when did you quit?: 1989 Information on smoking cessation initiated: No Hx Alcohol Use: No (denies) Drug/Substance Use Hx: No (denies) Substance Use Type: None Hx Substance Use Treatment: No Review of Systems - Review of Systems Constitutional: No: Chills, Fever HEENTM: No: Blurred Vision Respiratory: No: Shortness of Breath Cardiac (ROS): Yes: Lightheadedness. No: Chest Pain, Palpitations, Syncope ABD/GI: Yes: Nausea. No: Vomiting *Physical Exam - Vital Signs Last Vital Signs Temp Pulse Resp BP Pulse Ox 97.9 F 88 20 138/89 89 L 10/31/16 11:16 10/31/16 11:16 10/31/16 11:16 10/31/16 11:16 10/31/16 11:16 - Physical Exam General Appearance: Yes: Appropriately Dressed. No: Apparent Distress HEENT: positive: Normal Voice Neck: positive: Supple Respiratory/Chest: negative: Respiratory Distress Gastrointestinal/Abdominal: positive: Soft. negative: Tender Extremity: positive: Pedal Edema Integumentary: positive: Dry, Warm Neurologic: positive: Fully Oriented, Alert, Normal Mood/Affect ED Treatment Course - LABORATORY CBC & Chemistry Diagram: 10/31/16 12:29 10/31/16 12:29 - RADIOLOGY Radiology Studies Ordered: Category Date Time Status CHEST X-RAY PORTABLE* [RAD] Stat Radiology 10/31/16 11:14 Ordered Medical Decision Making - Medical Decision Making 10/31/16 11:25 71 yo M, former smoker (35+ years), COPD, pulmonary fibrosis, on proair, spiriva and 2L oxygen, HTN, CAD w/ 2 stents, CHF, DM, CKD, s/p recent admission for CHF, here with dizziness. Patient states since being discharged from the hospital approximately 3 weeks ago has had dizziness mostly in the morning shortly after taking all his medication including Lasix, which pt was recently started on. States he attributed dizziness to all the pills he was taking at 1 time and so decided to take some of his pills later on in the evening and states he did notice an improvement, but yesterday dizziness recurred and lasted all day but feels fine today. States he went to see his PMD today who noticed that peripheral edema had worsened. Pt states since coming out of the hospital, edema had improved and stopped taking lasix as was told to him by his surgery center administrator and states when he stopped meds, edema re-occurred so went back on meds. As per , told pt today that there was possibly fluid in his lungs today. Pt denies acute sob, CP, diaphoresis n/v or palpitations See exam Intermittent dizziness w/ ?worsening edema Recently started on lasix s/p recent discharge for CHF No acute SOB and no CP Sating 89% on RA (on home oxygen for COPD), rest of vital stable w/ clear chest/ lungs and trace edema b/l R/o acute CHF, less likely ACS, less likely COPD as no wheezing -ekg -cxr -labs -discuss dispo w/ cards and referring PMD 10/31/16 11:34 10/31/16 11:35 10/31/16 11:36 10/31/16 13:21 CXR read as increased pulm congestion w/ ?infiltrates. Pt valuated by Dr Garza of pulm who found rales on exam. Recs are steroids/nebs/lasix and to hold off on abx at this time. CT chest ordered by . Rec admitting to possible observation. Will discuss w/ Dr Garrido (PMD) and Dr Calle (cards) 10/31/16 13:22 10/31/16 13:23 10/31/16 13:43 Case d/w Dr Garirdo who states to admit to Dr Higgins. Dr Calle also made aware of admission, states service can consult him as needed 10/31/16 13:48 10/31/16 13:49 10/31/16 13:58 Dr Higgins aware of admission *DC/Admit/Observation/Transfer Diagnosis at time of Disposition: Dizziness Edema Qualifiers: Edema type: unspecified Qualified Code(s): R60.9 - Edema, unspecified - Discharge Dispostion Condition at time of disposition: Fair Admit: Yes - Referrals Referrals: Lonnie Garrido MD [Primary Care Provider] -
--- NOTE | 2016-10-31 12:19 | CON.PULM ---
Consult Consult Specialty:: PULMONARY Referred by:: TORIN Reason for Consultation:: SOB - History of Present Illness Chief Complaint: LIGHTHEADEDNESS/SOB CHRONIC History of Present Illness: 71 W MALE RETIRED [employer] WORK[employer], WITH H/O PULMONARY FIBROSIS,ASHD,DM2/ACUTE ON CHRONIC RESP FAILURE, CKD,OSAS,IA,PCI STENT,PULMONARY HTN PRESENTS WITH 10 DAYS OF LIGHTHEADEDNESS AND SOB. PT REPORTS NOT USING PORTABLE O2 PRESCRIBED. DENIES CP,PALPS,FEVER,SYNCOPE OR HEADACHE. HE HAS MILD PITTING EDEMA B/L ANKLES. 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 No: AFIB Pulmonary: Yes: COPD, O2 Dependent, Pulmonary Fibrosis, Sleep Apnea. No: Cancer , Pneumonia, Pulmonary Embolus Gastrointestinal: No: Ascites Hepatobiliary: No: Cirrhosis Renal/: Yes: Renal Inusuff, BPH, Hematuria Infectious Disease: No: AIDS Psych: Yes: Anxiety Musculoskeletal: No: Bursitis Rheumatology: No: Fibromyalgia ENT: No: Allergic Rhinitis Endocrine: Yes: Diabetes Mellitus. No: [place]'s Disease - Past Surgical History Past Surgical History: Yes: Appendectomy, Cataract Removal (coronary artery stent by history. 2010 3 stents placed), Stent - Alcohol/Substance Use Hx Alcohol Use: No (denies) History of Substance Use: reports: None - Smoking History Smoking history: Former smoker Have you smoked in the past 12 months: No Aproximately how many cigarettes per day: 0 If you are a former smoker, when did you quit?: 1989 - Social History ADL: Independent Occupation: retired secondary to disability History of Recent Travel: No Home Medications - Allergies Allergies/Adverse Reactions: Allergies Allergy/AdvReac Type Severity Reaction Status Date / Time No Known Drug Allergies Allergy Verified 10/31/16 11:15 - Home Medications Home Medications: Ambulatory Orders Ezetimibe [Zetia -] 10 mg PO HS 01/14/12 Allopurinol [Zyloprim -] 50 mg PO HS 12/09/12 Docosahexanoic Acid/Epa [Fish Oil Concentrate Softgel] 1 each PO DAILY 12/09/12 Aspirin [ASA -] 81 mg PO DAILY #0 07/20/14 Cholecalciferol (Vitamin D3) [Vitamin D3] 2,000 unit PO DAILY 07/20/14 Ubidecarenone/Vit E Acetate [Co Q-10 100 mg Softgel] 1 each PO DAILY 07/20/14 Pitavastatin Calcium [Livalo] 4 mg PO DAILY 08/15/14 Sennosides [Senna -] 2 tab PO HS PRN #0 tablet 08/19/14 Albuterol Sulfate [Proair Respiclick] 2 puff IH QID 09/28/16 Albuterol 0.083% Nebulizer Belia [Ventolin 0.083% Nebulizer Soln -] 1 amp NEB Q4H PRN #0 amp 10/03/16 Budesonide/Formeterol Fumarate [SYMBICORT 160/4.5mcg -] 2 puff IH BID #1 inhaler 10/03/16 Insulin (Levemir) [Levemir Vial] 28 units SQ AM ml 10/03/16 Insulin Sliding Scale [Novolog Vial Sliding Scale -] 1 vial SQ HS units Insulin Sliding Scale [Novolog Vial Sliding Scale -] 1 vial SQ TIDAC units 11/11 Metoprolol Succinate [Toprol XL -] 50 mg PO DAILY #30 tab 10/03/16 Prednisone [Deltasone -] 60 mg PO HS #0 tab 10/03/16 Tiotropium [place] [Spiriva] 1 puff IH DAILY inh 10/03/16 Family Disease History - Family Disease History Family Disease History: Diabetes: Brother, Heart Disease: Father, Other: Mother (dementia) Review of Systems - Review of Systems Constitutional: denies: Fever Eyes: denies: Blurred Vision HENT: denies: Difficult Swallowing Neck: denies: Decreased ROM Cardiovascular: reports: Shortness of Breath. denies: Chest Pain Respiratory: reports: Exercise Intolerance, SOB on Exertion. denies: Hemoptysis , Wheezing Gastrointestinal: denies: Abdominal Pain Genitourinary: denies: Burning Breasts: reports: No Symptoms Reported Musculoskeletal: reports: No Symptoms Integumentary: reports: No Symptoms Neurological: reports: No Symptoms Endocrine: reports: No Symptoms Hematology/Lymphatic: reports: No Symptoms Physical Exam Vital Sings: Vital Signs Temperature 97.9 F 10/31/16 11:16 Pulse Rate 88 10/31/16 11:16 Respiratory Rate 20 10/31/16 11:16 Blood Pressure 138/89 10/31/16 11:16 O2 Sat by Pulse Oximetry (%) 89 L 10/31/16 11:16 Constitutional: Yes: Calm Eyes: Yes: EOM Intact HENT: Yes: Normocephalic Neck: Yes: Trachea Midline Cardiovascular: Yes: Regular Rate and Rhythm Respiratory: Yes: Rales (BILATERAL CHRONIC ) Gastrointestinal: Yes: Soft, Abdomen, Obese Edema: Yes Edema: LLE: 1+, RLE: 1+ Integumentary: Yes: WNL Neurological: Yes: WNL ...Motor Strength: WNL Psychiatric: Yes: WNL Labs: PENDING Imaging - Results Chest X-ray: Report Reviewed, Image Reviewed Assessment/Plan ACUTE ON CHRONIC RESP FAILURE DUE TO PULMONARY FIBROSIS DM2/ASHD/OSAS/IA/PCI STENT/PULMONARY HTN O2/STEROIDS/BRONCHODILATORS/DIURETICS/ NO NEED FOR ANTIBIOTICS WOULD NOT BE OPPOSED TO ADMIT UNDER OBSERVATION HO CAIN MD
[2016-10-31 12:43] LABS: MCH 30.2 pg (25.7-33.7); MCHC 32.7 g/dl (32.0-35.9); MEAN CELL VOLUME 92.5 fl (80-96); PLATELET COUNT 158 K/MM3 (134-434); WHITE BLOOD COUNT 15.7 K/mm3 (4.0-10.0)
[2016-10-31 12:54] LABS: URINE APPEARANCE CLEAR; URINE BILIRUBIN NEGATIVE (NEGATIVE); URINE BLOOD NEGATIVE (NEGATIVE); URINE COLOR YELLOW; URINE GLUCOSE (UA) NEGATIVE (NEGATIVE); URINE KETONE NEGATIVE (NEGATIVE); URINE LEUK ESTERASE NEGATIVE (NEGATIVE); URINE NITRITE NEGATIVE (NEGATIVE); URINE UROBILINOGEN NEGATIVE mg/dL (0.2-1.0)
[2016-10-31 12:57] LABS: URINE PROTEIN 2+ (NEGATIVE)
[2016-10-31 13:00] LABS: URINE RBC 1 /hpf (0-3); URINE WBC <1 /hpf (3-5)
[2016-10-31 13:10] LABS: ALBUMIN 3.2 g/dl (3.4-5.0); ANION GAP 11 (8-16); CO2 23 mmol/L (21-32); CREATININE 1.6 mg/dL (0.7-1.3); GLUCOSE,RANDOM 143 mg/dL (74-106); SGOT/AST 28 U/L (15-37); SGPT/ALT 58 U/L (12-78)
[2016-10-31 13:14] LABS: ALK PHOS 59 U/L (45-117); BILIRUBIN,TOTAL 0.5 mg/dL (0.2-1.0); CALCIUM 9.2 mg/dL (8.5-10.1); CPK 57 IU/L (39-308); TOT PROT 6.5 g/dl (6.4-8.2); TROPONIN I 0.02 ng/ml (0.00-0.05)
[2016-10-31 13:15] LABS: PLATELET COMMENT2 NO CLOTTING DETECTED; PLATELET ESTIMATE ADEQUATE (NORMAL); TOTAL CELLS COUNTED 100
[2016-10-31 13:16] LABS: BASOPHIL (MANUAL) 2 % (0-2.0); REACTIVE LYMPHOCYTES 2 % (0-80)
[2016-10-31] MEDS ORDERED: methylPREDNISolone NA SUCC 125 MG/2 ML VIAL IVPB ONE (13:20)
[2016-10-31] MEDS ORDERED: FUROSEMIDE 40 MG/4 ML INJECTABLE VIAL IVPUSH ONE (13:23)
[2016-10-31] MEDS ORDERED: ALBUTEROL SO4 2.5/IPRATROPIUM 0.5 INH SOL 3 ML VIAL.NEB. NEB ONE ×2 (13:27→15:53)
[2016-10-31] MEDS ORDERED: methylPREDNISolone NA SUCC 125 MG/2 ML VIAL ONE (13:28)
[2016-10-31] MEDS ORDERED: FUROSEMIDE 40 MG/4 ML INJECTABLE VIAL ONE (13:28)
[2016-10-31] MEDS: ALBUTEROL SO4 2.5/IPRATROPIUM 0.5 INH SOL 3 ML VIAL.NEB. NEB SCH ×4 (13:36→16:15)
--- NOTE | 2016-10-31 14:58 | EKG ---
Test Reason : Blood Pressure : / mmHG Vent. 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
[2016-10-31] MEDS ORDERED: ACETAMINOPHEN 325 MG TABLET (FP) PO PRN (16:20)
[2016-10-31] MEDS ORDERED: ONDANSETRON 4 MG/2 ML VIAL IVPB PRN (16:20)
--- NOTE | 2016-10-31 16:28 | HP ---
Admitting History and Physical - Primary Care Physician PCP: Lonnie Garrido - Admission Chief Complaint: I was dizzy History of Present Illness: Mr Dolan is a very pleasant 71 year old male who was sent in from the office for further evaluation of bilateral ankle swelling and ronchi. He was in the hospital last month and notes that after he left he was experiencing lightheadedness. He said at first it would last all day where he would feel woozy. However he never passed out. He says that it did improve but he still noticed it with standing. He also noted bilateral ankle swelling. He was discharged on lasix and it improved, however after it improved he trialled himself of the lasix and it recurred. He restarted taking it but it has yet to resolve a second time. He also notes that his lightheadedness is worse with the lasix, it improves if he takes it at noon instead of in the morning. He became concerned because of the lightheadedness and presented to the office. There he was noted to have an abnormal lung exam and leg swelling. He was sent in for further evaluation. He says he has a history of shortness of breath that is unchanged. He denies vertigo, fevers, chills, chest pain, nausea, vomiting, diarrhea, constipation, pain or difficulty urinating. 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 No: AFIB Pulmonary: Yes: COPD, O2 Dependent, Pulmonary Fibrosis, Sleep Apnea. No: Cancer , Pneumonia, Pulmonary Embolus Gastrointestinal: No: Ascites Hepatobiliary: No: Cirrhosis Renal/: Yes: Renal Inusuff, BPH, Hematuria Infectious Disease: No: AIDS Psych: Yes: Anxiety Musculoskeletal: No: Bursitis Rheumatology: No: Fibromyalgia ENT: No: Allergic Rhinitis Endocrine: Yes: Diabetes Mellitus. No: [place]'s Disease - Past Surgical History Past Surgical History: Yes: Appendectomy, Cataract Removal (coronary artery stent by history. 2010 3 stents placed), Stent - Smoking History Smoking history: Former smoker Have you smoked in the past 12 months: No Aproximately how many cigarettes per day: 0 If you are a former smoker, when did you quit?: 1989 - Alcohol/Substance Use Hx Alcohol Use: No (denies) History of Substance Use: reports: None - Social History Usual Living Arrangement: Yes: With Spouse ADL: Independent Occupation: retired secondary to disability History of Recent Travel: No Home Medications - Allergies Allergies/Adverse Reactions: Allergies Allergy/AdvReac Type Severity Reaction Status Date / Time No Known Drug Allergies Allergy Verified 10/31/16 11:15 - Home Medications Home Medications: Ambulatory Orders Allopurinol [Zyloprim -] 50 mg PO HS 12/09/12 Docosahexanoic Acid/Epa [Fish Oil Concentrate Softgel] 1 each PO DAILY 12/09/12 Aspirin [ASA -] 81 mg PO DAILY #0 07/20/14 Cholecalciferol (Vitamin D3) [Vitamin D3] 2,000 unit PO DAILY 07/20/14 Ubidecarenone/Vit E Acetate [Co Q-10 100 mg Softgel] 1 each PO DAILY 07/20/14 Pitavastatin Cal[place] [Livalo] 4 mg PO DAILY 08/15/14 Sennosides [Senna -] 2 tab PO HS PRN #0 tablet 08/19/14 Albuterol Sulfate [Proair Respiclick] 2 puff IH QID 09/28/16 Albuterol 0.083% Nebulizer Belia [Ventolin 0.083% Nebulizer Soln -] 1 amp NEB Q4H PRN #0 amp 10/03/16 Budesonide/Formeterol Fumarate [SYMBICORT 160/4.5mcg -] 2 puff IH BID #1 inhaler 10/03/16 Insulin (Levemir) [Levemir Vial] 28 units SQ AM ml 10/03/16 Insulin Sliding Scale [Novolog Vial Sliding Scale -] 1 vial SQ HS units Insulin Sliding Scale [Novolog Vial Sliding Scale -] 1 vial SQ TIDAC units 11/11 Metoprolol Succinate [Toprol XL -] 50 mg PO DAILY #30 tab 10/03/16 Tiotropium [place] [Spiriva] 1 puff IH DAILY inh 10/03/16 Clopidogrel Bisulfate [Plavix -] 75 mg PO DAILY 10/31/16 Ezetimibe [Zetia] 10 mg PO DAILY 10/31/16 Furosemide [Lasix] 40 mg PO DAILY 10/31/16 Losartan Potassium 25 mg PO BID 10/31/16 Prednisone [Deltasone -] 10 mg PO HS 10/31/16 Family Disease History - Family Disease History Family Disease History: Diabetes: Brother, Heart Disease: Father, Other: Mother (dementia) Review of Systems Findings/Remarks: Full review of systems obtained, as per HPI and otherwise negative Physical Examination Vital Signs: Vital Signs Temperature 36.6 C 10/31/16 11:16 Pulse Rate 85 10/31/16 13:05 Respiratory Rate 20 10/31/16 13:05 Blood Pressure 138/89 10/31/16 11:16 O2 Sat by Pulse Oximetry (%) 95 10/31/16 13:05 Constitutional: Yes: No Distress, Calm, Obese Eyes: Yes: Conjunctiva Clear, EOM Intact, PERRL HENT: Yes: Atraumatic, Normocephalic Cardiovascular: Yes: Regular Rate and Rhythm. No: Gallop, Murmur, Rub Respiratory: Yes: Regular, On Nasal O2, Rhonchi (bibasilar). No: CTA Bilaterally, Rales, Wheezes Gastrointestinal: Yes: Normal Bowel Sounds, Soft. No: Distention, Tenderness Musculoskeletal: Yes: Muscle Weakness Edema: Yes Edema: LLE: 1+, RLE: 1+ Labs: Laboratory Results - last 24 hr 10/31/16 10/31/16 10/31/16 11:21 12:29 12:29 WBC 15.7 H RBC 5.19 Hgb 15.7 Hct 48.0 MCV 92.5 MCH 30.2 MCHC 32.7 RDW 14.0 Plt Count 158 MPV 8.0 Total Counted 100 Neutrophils % Y Neutrophils % (Manual) 67 Band Neuts % (Manual) 3 Lymphocytes % Y Lymphocytes % (Manual) 19 Monocytes % (Manual) 5 Eosinophils % (Manual) 2 Basophils % (Manual) 2 Platelet Estimate Adequate Platelet Comment No clotting detected Sodium 142 Potassium 4.5 Chloride 108 H Carbon Dioxide 23 Anion Gap 11 BUN 35 H D Creatinine 1.6 H Creat Clearance w eGFR 43.07 Random Glucose 143 H D Calcium 9.2 Total Bilirubin 0.5 AST 28 D ALT 58 D Alkaline Phosphatase 59 Creatine Kinase 57 Troponin I 0.02 D B-Natriuretic Peptide Total Protein 6.5 Albumin 3.2 L Urine Color Yellow Urine Appearance Clear Urine pH 6.0 Urine Protein 2+ H Urine Glucose (UA) Negative Urine Ketones Negative Urine Blood Negative Urine Nitrite Negative Urine Bilirubin Negative Urine Urobilinogen Negative Ur Leukocyte Esterase Negative Urine RBC 1 Urine WBC <1 10/31/16 12:29 WBC RBC Hgb Hct MCV MCH MCHC RDW Plt Count MPV Total Counted Neutrophils % Neutrophils % (Manual) Band Neuts % (Manual) Lymphocytes % Lymphocytes % (Manual) Monocytes % (Manual) Eosinophils % (Manual) Basophils % (Manual) Platelet Estimate Platelet Comment Sodium Potassium Chloride Carbon Dioxide Anion Gap BUN Creatinine Creat Clearance w eGFR Random Glucose Calcium Total Bilirubin AST ALT Alkaline Phosphatase Creatine Kinase Troponin I B-Natriuretic Peptide 212.98 H Total Protein Albumin Urine Color Urine Appearance Urine pH Urine Protein Urine Glucose (UA) Urine Ketones Urine Blood Urine Nitrite Urine Bilirubin Urine Urobilinogen Ur Leukocyte Esterase Urine RBC Urine WBC Imaging - Results Chest X-ray: Report Reviewed, Image Reviewed Cat Scan: Image Reviewed Problem List - Problems (1) Pre-syncope Assessment/Plan: -patient says experienced lightheadedness, particularly with standing -noted it started with furosemide -will check orthostatic vital signs -monitor Code(s): R55 - SYNCOPE AND COLLAPSE (2) CHF (congestive heart failure), NYHA class III Assessment/Plan: -noted to have history of CHF -unsure if systolic, diastolic, or combined as do not see ECHO report in the system -nonetheless, patient does not look to be in exacerbation -continue lasix 40mg daily, will schedule at noon since he says decreases symptoms of orthopnea -monitoe Code(s): I50.9 - HEART FAILURE, UNSPECIFIED Qualifiers: Congestive heart failure chronicity: chronic Qualified Code(s): - (3) Acute and chronic respiratory failure Assessment/Plan: -appreciate pulmonary assistance -continue prednisone -continue oxygen support -continue inhaled steroids and bronchodilators Code(s): J96.20 - ACUTE AND CHR RESP FAILURE, UNSP W HYPOXIA OR HYPERCAPNIA (4) COPD (chronic obstructive pulmonary disease) Assessment/Plan: -as above Code(s): J44.9 - CHRONIC OBSTRUCTIVE PULMONARY DISEASE, UNSPECIFIED (5) Diabetes mellitus Assessment/Plan: -diabetic diet -continue levemir -FSBS and SSI Code(s): E11.9 - TYPE 2 DIABETES MELLITUS WITHOUT COMPLICATIONS Qualifiers: Diabetes mellitus complication status: with other specified complication (6) Pulmonary fibrosis Assessment/Plan: -pulmonary following -continue prednisone Code(s): J84.10 - PULMONARY FIBROSIS, UNSPECIFIED (7) CAD (coronary artery disease) Assessment/Plan: -quiescent -continue aspirin, plavix, and metoprolol Code(s): I25.10 - ATHSCL HEART DISEASE OF [place] CORONARY ARTERY W/O ANG PCTRS (8) HTN (hypertension) Assessment/Plan: -monitor -continue home regimen Code(s): I10 - ESSENTIAL (PRIMARY) HYPERTENSION (9) CKD (chronic kidney disease) stage 3, GFR 30-59 ml/min Assessment/Plan: -at baseline Code(s): N18.3 - CHRONIC KIDNEY DISEASE, STAGE 3 (MODERATE)
[2016-10-31 17:38] VITALS: BMI 37.8
[2016-10-31] MEDS ORDERED: PNEUMOC 13-VAL CONJ-DIP CRM/PF 0.5 ML DISP.SYRIN IM ONE (17:39)
[2016-10-31] MEDS: INSULIN SLIDING SCALE (NOVOLOG) 1 VIAL SQ SCH ×2 (18:00→23:53)
--- NOTE | 2016-10-31 20:35 | CONS ---
DATE OF CONSULTATION: 10/31/2016 TIME OF CONSULTATION: 6:25 p.m. REQUESTING PHYSICIAN: Consultation requested by Lonnie Garrido M.D. CARDIOLOGY CONSULTATION CHIEF COMPLAINT: 1. Pedal edema. 2. Dyspnea. HISTORY OF PRESENT ILLNESS: The patient is a 71-year-old gentleman with history of insulin dependent diabetes mellitus, coronary artery disease, status post myocardial infarction, status post PCI/stenting, chronic kidney disease, congestive heart failure, interstitial pulmonary disease, pulmonary hypertension, BPH, had recently stopped taking his diuretic and went out to have breakfast and lunch which included cheeseburger, and wallisian fries, and also had eggs with cheese. Patient noticed he was having increasing dyspnea on exertion and had recurrence of pedal edema. He was seen by Dr. Garrido who advised him to come to the hospital for further workup. There is no history of chest pain or discomfort either at rest or with exertion. He has chronic exertional dyspnea. He is oxygen dependent because of underlying pulmonary disease. No history of recent paroxysmal nocturnal dyspnea or orthopnea reported. History of intermittent cough. PAST HISTORY: As mentioned in the history of present illness. SURGICAL HISTORY: Status post appendectomy, history of cataract extraction. SOCIAL HISTORY: He is . He is retired. Used to be a smoker. Has a social drink. FAMILY HISTORY: Father at age 63 years of myocardial infarction, was a diabetic. Mother in her late 80s of dementia. Has an older brother who apparently is healthy, a younger brother and a younger sister are apparently diabetic. MEDICATION: 1. [place] 3 fatty acid, 1 p.o. daily. 2. Zofran 4 mg IV q.6 h. p.r.n. 3. Symbicort 160/4.5 mcg, 2 inhalations b.i.d. 4. Prednisone 10 mg p.o. daily at bedtime. 5. Tylenol 650 mg q.4 h. p.r.n. 6. Cozaar 25 mg p.o. b.i.d. 7. Lovenox 40 mg subcutaneous daily. 8. Allopurinol 50 mg p.o. daily. 9. Tudorza 1 inhalation b.i.d. 10. Toprol XL 50 mg p.o. daily. 11. Zetia 10 mg p.o. daily. 12. Atorvastatin 20 mg p.o. daily. 13. Insulin Novolog according to sliding scale. 14. Levemir insulin 28 units subcutaneous a.c. breakfast. 15. Furosemide 40 mg p.o. daily. 16. Aspirin 81 mg p.o. daily. 17. Clopidogrel 75 mg p.o. daily. 18. Vitamin D3, 2000 international units p.o. daily. REVIEW OF SYSTEMS: Constitutional: No history of chills, fever, or night sweats. No history of unintentional weight loss. HEENT: No history of headaches, diplopia, blurred vision reported. No history of epistaxis, hoarseness, no history of tinnitus, or deafness. Cardiovascular: See history of present illness. Respiratory: See history of present illness. No history of hemoptysis or tuberculosis. Gastrointestinal: Denies any nausea, vomiting, melena or hematemesis. No history of abdominal pain or discomfort, no history of change in bowel habits. Neurological: Recent history of lightheadedness which at times was quite pronounced, accompanied by unsteady gait and noticed that he was hypoxic. No history of seizures or syncope. No history of focal weakness. Musculoskeletal: History of exertional discomfort involving both thighs. No history of arthralgias. Endocrine: See history of present illness. No history of intolerance to cold or warm weather. Genitourinary: History of nocturia, occasional frequency, and is known to have BPH. Hematological: No history of bruising, bleeding, or anemia . PHYSICAL EXAMINATION: General: A 71-year-old obese male, at the time of examination was in no acute distress, no pallor, cyanosis, clubbing or jaundice. Vital signs: Blood pressure 150/75 mmHg. Pulse 102 beats per minute and regular. Respirations 20 per minute. Weight 200 pounds. Oxygen saturation was 95% on 2 L of oxygen. Neck: Supple. No jugulovenous distention, hepatojugular reflex was negative, carotids were 2+, no bruits were heard, and no thyromegaly was appreciated. Heart: PMI was not localized, no heaves or thrills. Heart sounds were distant. Grade 1/6 apical systolic murmur was heard on held expiration, no gallops were heard. Lungs: Fine bibasilar crepitations. No expiratory wheezing was heard. Abdomen: Markedly obese, nontender, no hepatosplenomegaly or palpable masses were felt. There was dullness involving both flanks on percussion. Bowel sounds were present. No bruits were heard. Extremities: No calf tenderness. There was 1+ bilateral ankle edema. Dorsalis pedis pulses were 2+, femoral pulses were 2+. LABORATORY DATA: CBC: WBC count 15,700, hemoglobin 15.7 g/dL, platelet count 158,000. Differential was normal. Sodium 142, potassium 4.5, chloride 108, CO2 of 23 mmol/L, BUN 35, creatinine 1.6 mg/dL. Random glucose was 143 mg/dL. Calcium was 9.2 mg/dL. BNP was elevated at 212.98. Total protein was 6.5, albumin was slightly decreased at 3.2 g/dL. Troponin was 0.02. X-ray chest, impression: Mild cardiomegaly with suggestion of mild pulmonary congestion plus/minus pneumonic infiltrates, correlate clinically. ECG, sinus rhythm, LVH by voltage criteria, intraatrial conduction abnormality, inferior wall myocardial infarction of indeterminate age. Compared to ECG of September 28, 2016, no major changes were seen. CT scan of the chest, impression: 1. No consolidation or other acute air space opacity to suggest pneumonia or active inflammatory pneumonitis, no pleural effusion. 2. Nonspecific lower lobe predominant interstitial opacities/fibrotic changes are essentially unchanged from February 08, 2015. 3. Hepatic steatosis. 4. Cholelithiasis, CT evidence of acute cholecystitis. IMPRESSION: 1. Clinical presentation is compatible with congestive heart failure, precipitated by recent dietary indiscretion. 2. Coronary artery disease, status post myocardial infarction, status post percutaneous coronary intervention/stenting, stable angina pectoris. 3. History of chronic obstructive pulmonary disease/interstitial pulmonary disease, oxygen dependent. 4. Insulin dependent diabetes mellitus. 5. Chronic kidney disease secondary to number 4. 6. Possibility of ascites needs to be excluded. 7. Hypercholesterolemia. 8. Exogenous obesity. 9. Poor compliance. 10. Benign prostatic hypertrophy. RECOMMENDATION: 1. Patient was again counseled regarding his dietary restrictions and curtailing his sodium intake. 2. Abdominal ultrasound to exclude ascites. 3. Daily weights. 4. Concur with resumption of diuretics. 5. . Thank you for your referral. MORIS SHER M.D. [id number]
[2016-10-31] MEDS: LOSARTAN POTASSIUM 25 MG TABLET PO SCH (22:42)
[2016-10-31] MEDS: predniSONE 20 MG TABLET (UD) PO SCH (22:42)
[2016-10-31] MEDS: ATORVASTATIN CA 20 MG TABLET (FP) PO SCH (22:43)
[2016-10-31] MEDS ORDERED: INSULIN (NOVOLOG) ASPART 100 UNITS/ML 10ML VIAL ONE (23:50)
[2016-10-31] MEDS: BUDESONIDE/FORMETEROL FUMARATE 160/4.5 mcg INHALER IH SCH (23:54)
[2016-10-31] MEDS: ACLIDINIUM BROMIDE 400 MCG/INH AERO.POWD IH SCH (23:55)
[2016-10-31] MEDS: ALLOPURINOL 100 MG TABLET (FP) PO SCH (23:55)
[2016-11-01] MEDS: INSULIN SLIDING SCALE (NOVOLOG) 1 VIAL SQ SCH ×4 (06:43→16:45)
[2016-11-01] MEDS: INSULIN DETEMIR 100 UNITS/ML MDV SQ SCH (06:43)
[2016-11-01 08:14] LABS: MCH 30.6 pg (25.7-33.7); MCHC 33.7 g/dl (32.0-35.9); MEAN CELL VOLUME 90.8 fl (80-96); MEAN PLT VOLUME 8.1 fl (7.5-11.1); PLATELET COUNT 154 K/MM3 (134-434); RDW 13.7 % (11.9-15.9); WHITE BLOOD COUNT 15.9 K/mm3 (4.0-10.0)
--- NOTE | 2016-11-01 09:04 | PN ---
Progress Note (short form) - Note Progress Note: Less shortness of breath today after IV Lasix and IV steroids in ER. BGM elevated exacerbated by Steroids.Some coughing; clear sputum. Appreciate Cardiology and Pulmonary consults. On Exam: Vital Signs Temp 97.7 F 11/01/16 06:07 Pulse 88 11/01/16 06:07 Resp 20 11/01/16 06:07 BP 147/93 11/01/16 06:07 Pulse Ox 97 10/31/16 21:00 Intake & Output 10/31/16 10/31/16 11/01/16 11:59 23:59 11:59 Intake Total 480 Balance 480 Weight 200 lb 200 lb Intake: Oral 480 Other: Voiding Method Toilet # Unmeasured Voids Void 1 Height 5 ft 7 in 5 ft 1 in Body Mass Index (BMI) 31.3 37.8 Weight Measurement Method Stated by Patient Alert Chest: Decreased breath sounds Markedly less rales and rhonchi than yesterday Abd: Obese Ext: decreased edema Abnormal Lab Results 10/31/16 10/31/16 10/31/16 11:21 12:29 12:29 WBC 15.7 H Chloride 108 H BUN 35 H D Creatinine 1.6 H Random Glucose 143 H D B-Natriuretic Peptide Albumin 3.2 L Urine Protein 2+ H 10/31/16 10/31/16 11/01/16 12:29 22:55 07:00 WBC 15.9 H Chloride BUN Creatinine Random Glucose 495 H* D B-Natriuretic Peptide 212.98 H Albumin Urine Protein IMP: Acute exacerbation COPD Pulmonary Fibrosis CHF acute as per Cardiology Uncontrolled DM ASHD Plan: Diabetes MD F/U Lab OOB F/U consultants
[2016-11-01 09:06] LABS: ANION GAP 12 (8-16); CALCIUM 8.7 mg/dL (8.5-10.1); CO2 22 mmol/L (21-32); CREATININE 1.7 mg/dL (0.7-1.3); MAGNESIUM 1.9 mg/dL (1.8-2.4); PHOSPHOROUS 3.9 mg/dL (2.5-4.9)
[2016-11-01 09:10] LABS: GLUCOSE,RANDOM 364 mg/dL (74-106)
[2016-11-01 09:32] LABS: PLATELET ESTIMATE ADEQUATE (NORMAL)
[2016-11-01 09:33] LABS: METAMYELOCYTE 1 % (0-2); TOTAL CELLS COUNTED 100
[2016-11-01] MEDS: ENOXAPARIN NA (PORCINE) 40 MG/0.4 ML DISP.SYRIN SQ SCH (09:34)
[2016-11-01] MEDS: ASPIRIN 81 MG CHEWABLE TABLETS PO SCH (09:35)
[2016-11-01] MEDS: CLOPIDOGREL BISULFATE 75 MG TABLET (FP) PO SCH (09:35)
[2016-11-01] MEDS: LOSARTAN POTASSIUM 25 MG TABLET PO SCH ×2 (09:35→22:42)
[2016-11-01] MEDS: CHOLECALCIFEROL (VITAMIN D3) 1,000 UNIT TABLET (FP) PO SCH (09:35)
[2016-11-01] MEDS: METOPROLOL SUCCINATE 50 MG TAB.SR.24H (FP) PO SCH (09:35)
[2016-11-01] MEDS: BUDESONIDE/FORMETEROL FUMARATE 160/4.5 mcg INHALER IH SCH ×2 (09:39→22:45)
[2016-11-01] MEDS: ACLIDINIUM BROMIDE 400 MCG/INH AERO.POWD IH SCH ×2 (09:39→22:45)
[2016-11-01] MEDS ORDERED: [UNRECOGNIZED DRUG - OTHER] PO SCH (10:00)
[2016-11-01] MEDS ORDERED: EZETIMIBE 10 MG TABLET (FP) PO SCH ×2 (10:00→22:00)
[2016-11-01] MEDS ORDERED: EPA PO SCH (10:00)
[2016-11-01] MEDS ORDERED: DOCOSAHEXANOIC ACID PO SCH (10:00)
--- NOTE | 2016-11-01 11:37 | PN ---
Progress Note (short form) - Note Progress Note: PULMONARY Breathing better today. Some dizziness when he got up to walk. No cough or wheezing. Last Vital Signs Temp Pulse Resp BP Pulse Ox 98 F 98 H 20 152/86 97 11/01/16 10:00 11/01/16 10:39 11/01/16 10:00 11/01/16 10:39 11/01/16 09:00 Gen: NAD at rest Heart: RRR Lung: basilar rales Abd: soft, nontender Ext: no edema CBC, BMP 11/01/16 07:00 11/01/16 07:00 Active Medications Acetaminophen (Tylenol -) 650 mg PO Q4H PRN PRN Reason: FEVER OR PAIN Aclidinium [place] (Tudorza -) 1 puff IH BID [facility] Last Admin: 11/01/16 09:39 Dose: 1 puff Allopurinol (Zyloprim -) 50 mg PO HS [facility] Last Admin: 10/31/16 23:55 Dose: Not Given Aspirin (Asa -) 81 mg PO DAILY [facility] Last Admin: 11/01/16 09:35 Dose: 81 mg Atorvastatin Calcium (Lipitor -) 20 mg PO HS [facility] Last Admin: 10/31/16 22:43 Dose: Not Given Budesonide/Formoterol Fumarate (Symbicort 160/4.5mcg -) 2 puff IH BID [facility] Last Admin: 11/01/16 09:39 Dose: 2 puff Cholecalciferol (Vitamin D3 -) 2,000 unit PO DAILY [facility] Last Admin: 11/01/16 09:35 Dose: 2,000 unit Clopidogrel Bisulfate (Plavix -) 75 mg PO DAILY [facility] Last Admin: 11/01/16 09:35 Dose: 75 mg Ezetimibe (Zetia -) 10 mg PO HS [facility] Enoxaparin Sodium (Lovenox -) 40 mg SQ DAILY [facility] Last Admin: 11/01/16 09:34 Dose: 40 mg Furosemide (Lasix -) 40 mg PO DAILY [facility] Insulin Aspart (Novolog Vial Sliding Scale -) 1 vial SQ ACHS [facility] PRN Reason: Protocol Last Admin: 11/01/16 06:43 Dose: 9 units Insulin Detemir (Levemir Vial) 28 units SQ AM [facility] Last Admin: 11/01/16 06:43 Dose: 28 units Losartan Potassium (Cozaar -) 25 mg PO BID [facility] Last Admin: 11/01/16 09:35 Dose: 25 mg Metoprolol Succinate (Toprol Xl -) 50 mg PO DAILY [facility] Last Admin: 11/01/16 09:35 Dose: 50 mg Non-Formulary Medication (Docosahexanoic Acid/Epa [Fish Oil Concentrate Softgel] ) 1 each PO DAILY [facility] Ondansetron HCl (Zofran Injection) 4 mg IVPB Q6H PRN PRN Reason: NAUSEA Prednisone (Deltasone -) 10 mg PO [facility] Last Admin: 10/31/16 22:42 Dose: Not Given A/P Interstitial Lung Disease Chronic Hypoxic Respiratory Failure CAD Pulmonary HTN DM - would discharge on prednisone 40mg daily, taper down to 20mg daily q2 days, he has an appointment with his ILD physician at [facility] on 11/07 - inhaled bronchodilators - glucose control while on systemic steroids - O2 to keep SpO2 >90% - PT eval - can be discharged from pulmonary standpoint if tolerating ambulation
[2016-11-01] MEDS ORDERED: INSULIN (NOVOLOG) ASPART 100 UNITS/ML 10ML VIAL ONE (12:10)
--- NOTE | 2016-11-01 12:16 | EKG ---
Test Reason : Blood Pressure : / mmHG Vent. Rate : 098 BPM Atrial Rate : 098 BPM P-R Int : 198 ms QRS Dur : 122 ms QT Int : 366 ms P-R-T Axes : 043 -04 002 degrees QTc Int : 467 ms NORMAL SINUS RHYTHM LEFT VENTRICULAR HYPERTROPHY WITH QRS WIDENING INFERIOR INFARCT (CITED ON OR BEFORE 18-OCT-1999) ABNORMAL ECG WHEN COMPARED WITH ECG OF 31-OCT-2016 11:26, NO SIGNIFICANT CHANGE WAS FOUND Confirmed by EVER BECKER MD ([id number]) on 11/01/2016 12:16:02 PM Referred By: FACUNDO CASTELLANOS Confirmed By:EVER BECKER MD
[2016-11-01] MEDS: FUROSEMIDE 40 MG TABLET (FP) PO SCH (12:19)
[2016-11-01] MEDS ORDERED: INSULIN (NOVOLOG) ASPART 100 UNITS/ML 10ML VIAL SQ ONE (16:45)
--- NOTE | 2016-11-01 17:02 | CONSULT ---
Consult Consult Specialty:: Endocrinology Referred by:: Dr Higgins Reason for Consultation:: Hyperglycemia - History of Present Illness Chief Complaint: Dizziness History of Present Illness: This is a 71 y/o M, former smoker (35+ years) with h/o COPD, pulmonary fibrosis , on proair, spiriva and 2L oxygen, HTN, CAD w/ 2 stents, CHF, DM since 1991, on Insulin for about 15 years, CKD, s/p recent admission for CHF, is admitted for dizziness. States he went to see his PMD the day of admission who noticed that peripheral edema had worsened and that he had crackles over the lungs and advised admission. Pt referred for management of hyperglycemia. BGM at home has been fluctuating from 120 to 200s with usually lower numbers in the morning. Pt has been on tapering dose of prednisone at home. Blood sugar has also beem improving. Takes Novolog up to 20 units when blood sugar is 200 to 300 and doesn't take any if it is in the low 100s. Denies any hypos. No visual symptoms and no paresthesia of feet. 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 No: AFIB Pulmonary: Yes: COPD, O2 Dependent, Pulmonary Fibrosis, Sleep Apnea. No: Cancer , Pneumonia, Pulmonary Embolus Gastrointestinal: No: Ascites Hepatobiliary: No: Cirrhosis Renal/: Yes: Renal Inusuff, BPH, Hematuria Infectious Disease: No: AIDS Psych: Yes: Anxiety Musculoskeletal: No: Bursitis Rheumatology: No: Fibromyalgia ENT: No: Allergic Rhinitis Endocrine: Yes: Diabetes Mellitus. No: [place]'s Disease - Past Surgical History Past Surgical History: Yes: Appendectomy, Cataract Removal (coronary artery stent by history. 2010 3 stents placed), Stent - Alcohol/Substance Use Hx Alcohol Use: No (denies) History of Substance Use: reports: None - Smoking History Smoking history: Former smoker Have you smoked in the past 12 months: No Aproximately how many cigarettes per day: 0 If you are a former smoker, when did you quit?: 1989 - Social History ADL: Independent Occupation: retired secondary to disability History of Recent Travel: No Home Medications - Allergies Allergies/Adverse Reactions: Allergies Allergy/AdvReac Type Severity Reaction Status Date / Time No Known Drug Allergies Allergy Verified 09/06/17 11:15 - Home Medications Home Medications: Ambulatory Orders Allopurinol [Zyloprim -] 50 mg PO HS 12/09/12 Docosahexanoic Acid/Epa [Fish Oil Concentrate Softgel] 1 each PO DAILY 12/09/12 Aspirin [ASA -] 81 mg PO DAILY #0 07/20/14 Cholecalciferol (Vitamin D3) [Vitamin D3] 2,000 unit PO DAILY 07/20/14 Ubidecarenone/Vit E Acetate [Co Q-10 100 mg Softgel] 1 each PO DAILY 07/20/14 Pitavastatin Calcium [Livalo] 4 mg PO DAILY 08/15/14 Sennosides [Senna -] 2 tab PO HS PRN #0 tablet 08/19/14 Albuterol Sulfate [Proair Respiclick] 2 puff IH QID 09/28/16 Albuterol 0.083% Nebulizer Belia [Ventolin 0.083% Nebulizer Soln -] 1 amp NEB Q4H PRN #0 amp 10/03/16 Budesonide/Formeterol Fumarate [SYMBICORT 160/4.5mcg -] 2 puff IH BID #1 inhaler 10/03/16 Insulin (Levemir) [Levemir Vial] 28 units SQ AM ml 10/03/16 Insulin Sliding Scale [Novolog Vial Sliding Scale -] 1 vial SQ HS units Insulin Sliding Scale [Novolog Vial Sliding Scale -] 1 vial SQ TIDAC units 11/11 Metoprolol Succinate [Toprol XL -] 50 mg PO DAILY #30 tab 10/03/16 Tiotropium [place] [Spiriva] 1 puff IH DAILY inh 10/03/16 Clopidogrel Bisulfate [Plavix -] 75 mg PO DAILY 10/31/16 Ezetimibe [Zetia] 10 mg PO DAILY 10/31/16 Furosemide [Lasix] 40 mg PO DAILY 10/31/16 Losartan Potassium 25 mg PO BID 10/31/16 Prednisone [Deltasone -] 10 mg PO HS 10/31/16 Family Disease History - Family Disease History Family Disease History: Diabetes: Father, Brother, Heart Disease: Father, Other : Mother (dementia) Review of Systems - Review of Systems Constitutional: reports: Weakness Eyes: reports: No Symptoms HENT: reports: No Symptoms Neck: reports: No Symptoms Cardiovascular: reports: No Symptoms Respiratory: reports: No Symptoms Gastrointestinal: reports: No Symptoms Genitourinary: reports: Other (ployuria, nocturia) Musculoskeletal: reports: No Symptoms Integumentary: reports: No Symptoms Neurological: reports: No Symptoms Endocrine: reports: No Symptoms Physical Exam Vital Signs: Vital Signs Temperature 97.7 F 11/01/16 14:00 Pulse Rate 89 11/01/16 14:26 Respiratory Rate 20 11/01/16 10:00 Blood Pressure 129/83 11/01/16 14:00 O2 Sat by Pulse Oximetry (%) 98 11/01/16 14:26 Constitutional: Yes: No Distress, Calm Eyes: Yes: Conjunctiva Clear, EOM Intact HENT: Yes: Atraumatic, Normocephalic Neck: Yes: Supple, Trachea Midline Cardiovascular: Yes: Regular Rate and Rhythm Respiratory: Yes: Regular, Other (Basal crepitations) Gastrointestinal: Yes: Normal Bowel Sounds, Soft Extremities: Yes: WNL Edema: No Neurological: Yes: Alert, Oriented Labs: CBC, BMP 11/01/16 07:00 11/01/16 07:00 Imaging - Results Chest X-ray: Report Reviewed Cat Scan: Report Reviewed Assessment/Plan AP: T2DM Uncontrolled Interstitial lung disease CHF CAD Pul HTN Monitor BGM Levermir 28 units daily Increase Novolog Coverage Will abigail to further increase Insulin dosage if Prednisone dose is increased Will f/u
--- NOTE | 2016-11-01 19:56 | PN ---
Progress Note (short form) - Note Progress Note: 71 year old male admitted with pedal edema and SOB. known case of CAD, status post TN,S/P PCI/stenting,DM with multisystem involvement, hyperlipidemia,has been feeling better.No chest pain or discomfort,HEIN persists. Active Medications Generic Name Dose Route Start Last Admin Trade Name Freq PRN Reason Stop Dose Admin Acetaminophen 650 mg 10/31/16 16:20 Tylenol - PO Q4H PRN FEVER OR PAIN Aclidinium [place] 1 puff 10/31/16 22:00 11/01/16 09:39 Tudorza - IH 1 puff BID [facility] Administration Allopurinol 50 mg 10/31/16 22:00 10/31/16 23:55 Zyloprim - PO Not Given HS [facility] Aspirin 81 mg 11/01/16 10:00 11/01/16 09:35 Asa - PO 81 mg DAILY [facility] Administration Atorvastatin Calcium 20 mg 10/31/16 22:00 10/31/16 22:43 Lipitor - PO Not Given HS [facility] Budesonide/Formoterol Fumarate 2 puff 10/31/16 22:00 11/01/16 09:39 Symbicort 160/4.5mcg - IH 2 puff BID [facility] Administration Cholecalciferol 2,000 unit 11/01/16 10:00 11/01/16 09:35 Vitamin D3 - PO 2,000 unit DAILY [facility] Administration Clopidogrel Bisulfate 75 mg 11/01/16 10:00 11/01/16 09:35 Plavix - PO 75 mg DAILY [facility] Administration Ezetimibe 10 mg 11/01/16 22:00 Zetia - PO HS [facility] Enoxaparin Sodium 40 mg 11/01/16 10:00 11/01/16 09:34 Lovenox - SQ 40 mg DAILY [facility] Administration Furosemide 40 mg 11/01/16 12:00 11/01/16 12:19 Lasix - PO 40 mg DAILY [facility] Administration Insulin Aspart 1 vial 11/02/16 07:00 Novolog Vial Sliding Scale - SQ TIDAC [facility] Protocol Insulin Aspart 1 vial 11/01/16 22:00 Novolog Vial Sliding Scale - SQ HS [facility] Protocol Insulin Detemir 28 units 11/01/16 07:00 11/01/16 06:43 Levemir Vial SQ 28 units AM [facility] Administration Losartan Potassium 25 mg 10/31/16 22:00 11/01/16 09:35 Cozaar - PO 25 mg BID [facility] Administration Metoprolol Succinate 50 mg 11/01/16 10:00 11/01/16 09:35 Toprol Xl - PO 50 mg DAILY [facility] Administration Ondansetron HCl 4 mg 10/31/16 16:20 Zofran Injection IVPB Q6H PRN NAUSEA Prednisone 10 mg 10/31/16 22:00 10/31/16 22:42 Deltasone - PO Not Given HS [facility] 71 year old male in no distress and resting comfortably. Vital Signs - 8 hr 11/01/16 11/01/16 11/01/16 14:00 14:26 17:53 Temperature 97.7 F 97.6 F Pulse Rate 90 89 88 Respiratory 20 Rate Blood Pressure 129/83 137/97 O2 Sat by Pulse 98 Oximetry (%) NECK: supple,no JVD carotids equal,no bruits. HEART:S1 and S2 are normal, no murmur or gallops heard. LUNGS:Creps at both bases,more pronounced at the right base. ABDOMEN:Obese,nontender,no organomegaly,no palpable masses. EXT:No calf tenderness or dependent edema. CBC, BMP 11/01/16 07:00 11/01/16 07:00 Abdomenal ultrsound,no ascitis,diffuse steatosis and cholelithiasis A: 1.Interstitial pulmonary disease,O2 dependent 2.CAD s/p TN,s/p PCI/stenting. 3.IDDM. 4.CHF 5.Poor compliance. 6.Hyperlipidemia. 7.CKD. Recommendation: 1.Continue therapy. 2.Counceled regarding dietary restrictions. 3.Increase ambulation.
[2016-11-01] MEDS ORDERED: INSULIN SLIDING SCALE (NOVOLOG) 1 VIAL SQ SCH (22:00)
[2016-11-01] MEDS: ATORVASTATIN CA 20 MG TABLET (FP) PO SCH (22:42)
[2016-11-01] MEDS: predniSONE 20 MG TABLET (UD) PO SCH (22:42)
[2016-11-01] MEDS: ALLOPURINOL 100 MG TABLET (FP) PO SCH (22:43)
[2016-11-02] MEDS: INSULIN DETEMIR 100 UNITS/ML MDV SQ SCH (06:55)
[2016-11-02] MEDS ORDERED: INSULIN SLIDING SCALE (NOVOLOG) 1 VIAL SQ SCH (07:00)
[2016-11-02 07:27] LABS: MCH 30.7 pg (25.7-33.7); MCHC 33.4 g/dl (32.0-35.9); MEAN CELL VOLUME 91.9 fl (80-96); MEAN PLT VOLUME 8.4 fl (7.5-11.1); PLATELET COUNT 154 K/MM3 (134-434); RDW 14.1 % (11.9-15.9)
[2016-11-02 08:07] LABS: ANION GAP 10 (8-16); CALCIUM 8.9 mg/dL (8.5-10.1); CO2 25 mmol/L (21-32); CREATININE 1.4 mg/dL (0.7-1.3); GLUCOSE,RANDOM 258 mg/dL (74-106)
--- NOTE | 2016-11-02 08:45 | PN ---
Progress Note (short form) - Note Progress Note: Feels better No SOB Blood sugar improving Vital Signs Period Temp Pulse Resp BP Sys/Meraz Pulse Ox Last 24 Hr 97.5 F-98 F 78-102 20-20 126-152/80-97 95-98 PE: AOx3 Neck: Supple, No JVD HEENT: PERRL, EOMI Lungs: Basal crackles CVS: S1S2 Abd: Benign Ext: No edema Neuro: No focal deficit CBC,CMP WBC 15.0 K/mm3 (4.0-10.0) H 11/02/16 05:35 RBC 4.93 M/mm3 (4.00-5.60) 11/02/16 05:35 Hgb 15.1 GM/dL (11.7-16.9) 11/02/16 05:35 Hct 45.3 % (35.4-49) 11/02/16 05:35 MCV 91.9 fl (80-96) 11/02/16 05:35 MCH 30.7 pg (25.7-33.7) 11/02/16 05:35 MCHC 33.4 g/dl (32.0-35.9) 11/02/16 05:35 RDW 14.1 % (11.9-15.9) 11/02/16 05:35 Plt Count 154 K/MM3 (134-434) 11/02/16 05:35 MPV 8.4 fl (7.5-11.1) 11/02/16 05:35 Total Counted 100 11/01/16 07:00 Neutrophils % Y 11/02/16 05:35 Neutrophils % (Manual) 76 % (42.8-82.8) 11/01/16 07:00 Band Neuts % (Manual) 6 % (0-10) D 11/01/16 07:00 Lymphocytes % Y 11/02/16 05:35 Lymphocytes % (Manual) 7 % (8-40) L D 11/01/16 07:00 Monocytes % (Manual) 10 % (3.8-10.2) D 11/01/16 07:00 Eosinophils % (Manual) 2 % (0-4.5) 10/31/16 12:29 Basophils % (Manual) 2 % (0-2.0) 10/31/16 12:29 Platelet Estimate Adequate (NORMAL) 11/01/16 07:00 Platelet Comment No clumping noted 11/01/16 07:00 Platelet Comment No clotting detected 10/31/16 12:29 Sodium 135 mmol/L (136-145) L 11/01/16 07:00 Potassium 4.8 mmol/L (3.5-5.1) 11/01/16 07:00 Chloride 101 mmol/L (98-107) 11/01/16 07:00 Carbon Dioxide 22 mmol/L (21-32) 11/01/16 07:00 Anion Gap 12 (8-16) 11/01/16 07:00 BUN 50 mg/dL (7-18) H D 11/01/16 07:00 Creatinine 1.7 mg/dL (0.7-1.3) H 11/01/16 07:00 Creat Clearance w eGFR 43.07 (>60) 10/31/16 12:29 POC Glucometer 252 UNITS (()) 11/02/16 06:00 Random Glucose 364 mg/dL (74-106) H* D 11/01/16 07:00 Calcium 8.7 mg/dL (8.5-10.1) 11/01/16 07:00 Phosphorus 3.9 mg/dL (2.5-4.9) 11/01/16 07:00 Magnesium 1.9 mg/dL (1.8-2.4) 11/01/16 07:00 Total Bilirubin 0.5 mg/dL (0.2-1.0) 10/31/16 12:29 AST 28 U/L (15-37) D 10/31/16 12:29 ALT 58 U/L (12-78) D 10/31/16 12:29 Alkaline Phosphatase 59 U/L (45-117) 10/31/16 12:29 Creatine Kinase 57 IU/L (39-308) 10/31/16 12:29 Troponin I 0.02 ng/ml (0.00-0.05) D 10/31/16 12:29 B-Natriuretic Peptide 212.98 pg/ml (5-125) H 10/31/16 12:29 Total Protein 6.5 g/dl (6.4-8.2) 10/31/16 12:29 Albumin 3.2 g/dl (3.4-5.0) L 10/31/16 12:29 Current Medications Generic Name Dose Route Start Last Admin Trade Name Freq PRN Reason Stop Dose Admin Acetaminophen 650 mg 10/31/16 16:20 Tylenol - PO Q4H PRN FEVER OR PAIN Aclidinium [place] 1 puff 10/31/16 22:00 11/01/16 22:45 Tudorza - IH 1 puff BID [facility] Administration Allopurinol 50 mg 10/31/16 22:00 11/01/16 22:43 Zyloprim - PO 50 mg HS [facility] Administration Aspirin 81 mg 11/01/16 10:00 11/01/16 09:35 Asa - PO 81 mg DAILY [facility] Administration Atorvastatin Calcium 20 mg 10/31/16 22:00 11/01/16 22:42 Lipitor - PO 20 mg HS [facility] Administration Budesonide/Formoterol Fumarate 2 puff 10/31/16 22:00 11/01/16 22:45 Symbicort 160/4.5mcg - IH 2 puff BID [facility] Administration Cholecalciferol 2,000 unit 11/01/16 10:00 11/01/16 09:35 Vitamin D3 - PO 2,000 unit DAILY [facility] Administration Clopidogrel Bisulfate 75 mg 11/01/16 10:00 11/01/16 09:35 Plavix - PO 75 mg DAILY [facility] Administration Ezetimibe 10 mg 11/01/16 22:00 11/01/16 22:45 Zetia - PO 10 mg HS [facility] Administration Enoxaparin Sodium 40 mg 11/01/16 10:00 11/01/16 09:34 Lovenox - SQ 40 mg DAILY [facility] Administration Furosemide 40 mg 11/01/16 12:00 11/01/16 12:19 Lasix - PO 40 mg DAILY [facility] Administration Insulin Aspart 1 vial 11/02/16 07:00 11/02/16 06:56 Novolog Vial Sliding Scale - SQ 10 unit TIDAC [facility] Administration Protocol Insulin Aspart 1 vial 11/01/16 22:00 11/01/16 22:46 Novolog Vial Sliding Scale - SQ 4 units HS [facility] Administration Protocol Insulin Detemir 28 units 11/01/16 07:00 11/02/16 06:55 Levemir Vial SQ 28 units AM [facility] Administration Losartan Potassium 25 mg 10/31/16 22:00 11/01/16 22:42 Cozaar - PO 25 mg BID [facility] Administration Metoprolol Succinate 50 mg 11/01/16 10:00 11/01/16 09:35 Toprol Xl - PO 50 mg DAILY [facility] Administration Ondansetron HCl 4 mg 10/31/16 16:20 Zofran Injection IVPB Q6H PRN NAUSEA Prednisone 10 mg 10/31/16 22:00 11/01/16 22:42 Deltasone - PO 10 mg HS [facility] Administration AP: T2DM Uncontrolled Interstitial lung disease CHF CAD Pul HTN Monitor BGM continue Levermir 28 units daily in a.m. and add 10 units in p.m. Novolog Coverage Will need to further increase Insulin dosage if Prednisone dose is increased Will f/u
[2016-11-02 09:10] LABS: PLATELET ESTIMATE ADEQUATE (NORMAL); PROMYELOCYTE 1 % (0-2); TOTAL CELLS COUNTED 100
[2016-11-02] MEDS: ENOXAPARIN NA (PORCINE) 40 MG/0.4 ML DISP.SYRIN SQ SCH (09:11)
[2016-11-02] MEDS: METOPROLOL SUCCINATE 50 MG TAB.SR.24H (FP) PO SCH (09:11)
[2016-11-02] MEDS: ASPIRIN 81 MG CHEWABLE TABLETS PO SCH (09:11)
[2016-11-02] MEDS: LOSARTAN POTASSIUM 25 MG TABLET PO SCH (09:11)
[2016-11-02] MEDS: FUROSEMIDE 40 MG TABLET (FP) PO SCH (09:11)
[2016-11-02] MEDS: CHOLECALCIFEROL (VITAMIN D3) 1,000 UNIT TABLET (FP) PO SCH (09:11)
[2016-11-02] MEDS: CLOPIDOGREL BISULFATE 75 MG TABLET (FP) PO SCH (09:11)
[2016-11-02] MEDS: ACLIDINIUM BROMIDE 400 MCG/INH AERO.POWD IH SCH (09:14)
[2016-11-02] MEDS: BUDESONIDE/FORMETEROL FUMARATE 160/4.5 mcg INHALER IH SCH (09:14)
--- NOTE | 2016-11-02 10:18 | PN ---
Progress Note (short form) - Note Progress Note: S: 71 year old male with history of CAD, s/p MT s/p PCI/stenting, IDDM, dyslipidemia, chronic kidney disease, interstitial pulmonary disease, oxygen dependent, pulmonary HTN, CHF. Patient denies chest pain or discomfort. Has minimal dyspnea on exertion, he has been complaining of lightheadedness at times associated with unsteadiness, usually when he is ambulating. Denies having vertigo or tinnitus. No further pedal edema. Active Medications Generic Name Dose Route Start Last Admin Trade Name Freq PRN Reason Stop Dose Admin Acetaminophen 650 mg 10/31/16 16:20 Tylenol - PO Q4H PRN FEVER OR PAIN Aclidinium [place] 1 puff 10/31/16 22:00 11/02/16 09:14 Tudorza - IH 1 puff BID [place] Administration Allopurinol 50 mg 10/31/16 22:00 11/01/16 22:43 Zyloprim - PO 50 mg HS LAKE Administration Aspirin 81 mg 11/01/16 10:00 11/02/16 09:11 Asa - PO 81 mg DAILY [place] Administration Atorvastatin Calcium 20 mg 10/31/16 22:00 11/01/16 22:42 Lipitor - PO 20 mg HS LAKE Administration Budesonide/Formoterol Fumarate 2 puff 10/31/16 22:00 11/02/16 09:14 Symbicort 160/4.5mcg - IH 2 puff BID [place] Administration Cholecalciferol 2,000 unit 11/01/16 10:00 11/02/16 09:11 Vitamin D3 - PO 2,000 unit DAILY [place] Administration Clopidogrel Bisulfate 75 mg 11/01/16 10:00 11/02/16 09:11 Plavix - PO 75 mg DAILY [place] Administration Ezetimibe 10 mg 11/01/16 22:00 11/01/16 22:45 Zetia - PO 10 mg HS LAKE Administration Enoxaparin Sodium 40 mg 11/01/16 10:00 11/02/16 09:11 Lovenox - SQ 40 mg DAILY [place] Administration Furosemide 40 mg 11/01/16 12:00 11/02/16 09:11 Lasix - PO 40 mg DAILY [place] Administration Insulin Aspart 1 vial 11/02/16 07:00 11/02/16 06:56 Novolog Vial Sliding Scale - SQ 10 unit TIDAC [place] Administration Protocol Insulin Aspart 1 vial 11/01/16 22:00 11/01/16 22:46 Novolog Vial Sliding Scale - SQ 4 units HS LAKE Administration Protocol Insulin Detemir 28 units 11/01/16 07:00 11/02/16 06:55 Levemir Vial SQ 28 units AM LAKE Administration Insulin Detemir 10 units 11/02/16 22:00 Levemir Vial SQ HS LAKE Losartan Potassium 25 mg 10/31/16 22:00 11/02/16 09:11 Cozaar - PO 25 mg BID [place] Administration Metoprolol Succinate 50 mg 11/01/16 10:00 11/02/16 09:11 Toprol Xl - PO 50 mg DAILY [place] Administration Ondansetron HCl 4 mg 10/31/16 16:20 Zofran Injection IVPB Q6H PRN NAUSEA Prednisone 10 mg 10/31/16 22:00 11/01/16 22:42 Deltasone - PO 10 mg HS LAKE Administration O: 71 year old male was in no acute distress, no pallor, cyanosis, clubbing, or jaundice. Last Vital Signs Temp Pulse Resp BP Pulse Ox 97.5 F L 78 20 140/85 95 11/02/16 06:00 11/02/16 06:00 11/02/16 06:00 11/02/16 06:00 11/01/16 21:00 Intake & Output 10/30/16 10/31/16 11/01/16 11/02/16 23:59 23:59 23:59 23:59 Intake Total 480 750 Balance 480 750 Weight 90.718 kg 91.682 kg Neck: Supple, no JVD, negative HJR, carotids were equal and upstrokes were normal, no thyromegaly appreciated. Heart: PMI was in the 5th intercostal space, no heaves or thrills, S1 and S2 were normal. No murmurs or gallops were appreciated. Lungs: Clear on auscultation bilaterally. Abdomen: Soft, nontender, no hepatosplenomegaly appreciated, and no palpable masses were felt. Extremities: No calf tenderness or dependent edema. Pulses are normal. CBC, BMP 11/02/16 05:35 11/02/16 05:35 Laboratory Results - last 24 hr 11/01/16 11/01/16 11/01/16 12:02 15:49 22:41 WBC RBC Hgb Hct MCV MCH MCHC RDW Plt Count MPV Total Counted Neutrophils % Neutrophils % (Manual) Lymphocytes % Lymphocytes % (Manual) Monocytes % (Manual) Promyelocytes % (Man) Platelet Estimate Sodium Potassium Chloride Carbon Dioxide Anion Gap BUN Creatinine POC Glucometer 366 413 249 Random Glucose Hemoglobin A1c % Calcium 11/02/16 11/02/16 11/02/16 05:35 05:35 05:35 WBC 15.0 H RBC 4.93 Hgb 15.1 Hct 45.3 MCV 91.9 MCH 30.7 MCHC 33.4 RDW 14.1 Plt Count 154 MPV 8.4 Total Counted 100 Neutrophils % Y Neutrophils % (Manual) 85 H Lymphocytes % Y Lymphocytes % (Manual) 11 D Monocytes % (Manual) 3 L Promyelocytes % (Man) 1 Platelet Estimate Adequate Sodium 137 Potassium 5.0 Chloride 102 Carbon Dioxide 25 Anion Gap 10 BUN 48 H Creatinine 1.4 H POC Glucometer Random Glucose 258 H D Hemoglobin A1c % 9.0 H Calcium 8.9 11/02/16 06:00 WBC RBC Hgb Hct MCV MCH MCHC RDW Plt Count MPV Total Counted Neutrophils % Neutrophils % (Manual) Lymphocytes % Lymphocytes % (Manual) Monocytes % (Manual) Promyelocytes % (Man) Platelet Estimate Sodium Potassium Chloride Carbon Dioxide Anion Gap BUN Creatinine POC Glucometer 252 Random Glucose Hemoglobin A1c % Calcium Impression: 1. Recurring lightheadedness, etiology to be determined. a). Postural hypotension needs to excluded. b). Secondary to hypoxia. c). Cerebrovascular disease needs to be excluded. d). Benign postural vertigo needs to be excluded. 2. IDDM, poorly controlled. 3. CHF, resolved ppt by poor dietary compliance. 4. Oxygen dependent intersitial pulmonary disease. 5. Chronic kidney disease. 6. Exogenous obesity. 7. Poor compliance. Recommendations: 1. Check BP supine and standing. 2. Continue current therapy. 3. Neurological and ENT evaluation. 4. Holter monitor could be done on outpatient basis. 5. Counseled regarding dietary restrictions including curtailing salt intake. 6. Discharge when medically stable. Attestation: Documentation prepared by Harmony Johnson, acting as medical assisting instructor for Tahir Calle MD.
[2016-11-02 10:54] VITALS: TEMP 98
[2016-11-02 11:05] VITALS: BP 140/90; PULSE 98
--- NOTE | 2016-11-02 17:28 | DS ---
Physical Examination Vital Signs: Vital Signs Temperature 98 F 11/02/16 09:00 Pulse Rate 98 H 11/02/16 11:05 Respiratory Rate 20 11/02/16 11:05 Blood Pressure 140/90 11/02/16 11:05 O2 Sat by Pulse Oximetry (%) 94 L 11/02/16 09:00 Constitutional: Yes: Calm Cardiovascular: Yes: Regular Rate and Rhythm Respiratory: Yes: Diminished, Rhonchi (rare rhonchi both bases) Gastrointestinal: Yes: Abdomen, Obese. No: Tenderness Renal/: No: Pugh Present Edema: No Neurological: Yes: Alert, Oriented Labs: CBC, BMP 11/02/16 05:35 11/02/16 05:35 Discharge Summary Reason For Visit: EDEMA acute CHF COPD with acute exacerbation. Hypertensionacute Diabetes mellitus, uncontrolled Pedal edema acute Pulmonary fibrosis acute Procedures: Principal: IV steroids, IV Lasix Other Procedures: followup with cardiology and pulmonary physician. Cardiac monitoring Hospital Course: followed with daily lab and PTT Pedal edema improved ;breathing improved. Pulse ox was monitoredand stable. To follow up as outpatient. Condition: Improved - Instructions Diet, Activity, Other Instructions: No added salt or sugars. Please use the Oxygen when walking the dog. Followup with Dr. Garrido by 2 weeks if able. Referrals: Juarez Pang MD [Staff Physician] - Lonnie Garrido MD [Primary Care Provider] - Tahir Calle MD [Staff Physician] - Disposition: HOME - Home Medications Comprehensive Discharge Medication List: Ambulatory Orders Allopurinol [Zyloprim -] 50 mg PO HS 12/09/12 Docosahexanoic Acid/Epa [Fish Oil Concentrate Softgel] 1 each PO DAILY 12/09/12 Aspirin [ASA -] 81 mg PO DAILY #0 07/20/14 Cholecalciferol (Vitamin D3) [Vitamin D3] 2,000 unit PO DAILY 07/20/14 Ubidecarenone/Vit E Acetate [Co Q-10 100 mg Softgel] 1 each PO DAILY 07/20/14 Pitavastatin Calcium [Livalo] 4 mg PO DAILY 08/15/14 Sennosides [Senna -] 2 tab PO HS PRN #0 tablet 08/19/14 Albuterol Sulfate [Proair Respiclick] 2 puff IH QID 09/28/16 Albuterol 0.083% Nebulizer Belia [Ventolin 0.083% Nebulizer Soln -] 1 amp NEB Q4H PRN #0 amp 10/03/16 Budesonide/Formeterol Fumarate [SYMBICORT 160/4.5mcg -] 2 puff IH BID #1 inhaler 10/03/16 Insulin (Levemir) [Levemir Vial] 28 units SQ AM ml 10/03/16 Metoprolol Succinate [Toprol XL -] 50 mg PO DAILY #30 tab 10/03/16 Tiotropium [place] [Spiriva] 1 puff IH DAILY inh 10/03/16 Clopidogrel Bisulfate [Plavix -] 75 mg PO DAILY 10/31/16 Ezetimibe [Zetia] 10 mg PO DAILY 10/31/16 Furosemide [Lasix] 40 mg PO DAILY 10/31/16 Losartan Potassium 25 mg PO BID 10/31/16 Prednisone [Deltasone -] 10 mg PO HS 10/31/16 Acetaminophen [Tylenol .Regular Strength -] 650 mg PO Q4H PRN #0 tablet Insulin (Levemir) [Levemir Vial] 10 units SQ HS ml 11/02/16 Insulin Sliding Scale [Novolog Vial Sliding Scale -] 1 vial SQ TIDAC units 10/11
[2016-11-02] MEDS ORDERED: INSULIN DETEMIR 100 UNITS/ML MDV SQ SCH (22:00)
== END 2016-11-02 11:39 | disposition home or self-care (01) | DRG 189 ==
LOC: JER 10:48 → JERBED 13:49 → J4W 17:05
PROVIDERS: ADMIT Internal Medicine; ATTEND Internal Medicine
PROC: 3E0F7GC Introduction of Other Therapeutic Substance into Respiratory Tract, Via Natural or Artificial Opening (ICD-10-PCS; principal; 2016-10-31)
DX: J96.21 Acute and chronic respiratory failure with hypoxia (principal); I13.0 Hypertensive heart and chronic kidney disease with heart failure and stage 1 through stage 4 chronic kidney disease, or unspecified chronic kidney disease; J44.1 Chronic obstructive pulmonary disease with (acute) exacerbation; E11.65 Type 2 diabetes mellitus with hyperglycemia; E11.22 Type 2 diabetes mellitus with diabetic chronic kidney disease; J84.10 Pulmonary fibrosis, unspecified; Z79.4 Long term (current) use of insulin; E78.5 Hyperlipidemia, unspecified; I27.2 Other secondary pulmonary hypertension; I50.9 Heart failure, unspecified; I25.10 Atherosclerotic heart disease of native coronary artery without angina pectoris; Z98.61 Coronary angioplasty status; Z87.891 Personal history of nicotine dependence; R55 Syncope and collapse; N18.3 Chronic kidney disease, stage 3 (moderate); Z99.81 Dependence on supplemental oxygen; E66.09 Other obesity due to excess calories; Z68.37 Body mass index [BMI] 37.0-37.9, adult
CPT/HCPCS: 36415; 71010-TC; 71250-TC; 76700-TC; 80048; 80053; 81003; 81015; 82947; 83036; 83735; 83880; 84100; 84484; 85025; 93005; 93010; 97116-GP; 97161-GP; 99283-25

== ENCOUNTER 2017-01-11 15:08 | Inpatient (IN) | payer OTHER, BC ==
--- NOTE | 2017-01-11 15:20 | PDOC ---
Rapid Medical Evaluation Time Seen by Provider: 01/11/17 15:14 Medical Evaluation: Allergies Allergy/AdvReac Type Severity Reaction Status Date / Time No Known Drug Allergies Allergy Verified 10/31/16 11:15 01/11/17 15:14 I have performed a brief in-person evaluation of this patient. The patient presents with a chief complaint of: Sent in by Dr Garrido for SOB with "water on my lungs" in PMD's office 2 days ago per pt. Former smoker, ? h/o COPD, CHF on "water pill", pulm fibrosis, recently tapered off prednisone , on 2L oxygen, f/u with pulm at [place], DM Pertinent physical exam findings:Sating 82% on RA (baseline RA sats high 80s per pt, lower when ambulatory), in NAD, speaking in full sentences, mildly tachy to 102 w/ clear chest/lungs I have ordered the following:ekg/cxr/labs The patient will proceed to the ED for further evaluation. 01/11/17 15:22
[2017-01-11 16:16] LABS: BASOPHIL 0.9 % (0-2.0); EOSINOPHIL 1.8 % (0-4.5); MCH 30.3 pg (25.7-33.7); MCHC 33.1 g/dl (32.0-35.9); MEAN CELL VOLUME 91.6 fl (80-96); MEAN PLT VOLUME 8.5 fl (7.5-11.1); NEUTROPHILS 57.5 % (42.8-82.8); PLATELET COUNT 178 K/MM3 (134-434); RDW 14.7 % (11.9-15.9); WHITE BLOOD COUNT 11.5 K/mm3 (4.0-10.0)
--- NOTE | 2017-01-11 16:18 | PDOC ---
History of Present Illness - General Chief Complaint: Shortness of Breath Stated Complaint: SENT BY PCP Time Seen by Provider: 01/11/17 15:14 History Source: Patient Exam Limitations: No Limitations - History of Present Illness Initial Comments: This is a 71 YOM with h/o CHF (mulitple prior admissions with the last in October 2016), pulmonary fibrosis, COPD, SHANTI with CPAP use, home O2 use at 2 LPM prn, IDDM, and CAD ([place] in the s). He was seen in Dr. Garrido's office 3 days ago with increasing dyspnea on exertion over the past two weeks. Dr. Garrido called him at home today to follow up and advised him to come into the ED for evaluation, as his symptoms continued to persist. Mr. Dolan notes that months ago when he was at his baseline, he was able to walk half a mile on flat surface without stopping, but over the past two weeks he has not been able to walk to his own mailbox and back to his door without stopping to catch his breath. He has also been coughing with yellow phlegm, and this has been increasing for two weeks. He was on a month-long prednisone taper until about 10 days ago and was feeling worse afterward, so Dr. Garrido instructed him to take 2.5 mg/day since his appointment 3 days ago, which has not helped. The patient notes recent subjective weight gain (especially in his abdomen which he states is distended) but denies any fever, chills, nausea, vomiting, diarrhea, chest pain, abdominal pain, or other symptoms. Past History - Past Medical History Allergies/Adverse Reactions: Allergies Allergy/AdvReac Type Severity Reaction Status Date / Time No Known Drug Allergies Allergy Verified 01/11/17 15:18 Home Medications: Ambulatory Orders Allopurinol [Zyloprim -] 50 mg PO HS 12/09/12 Docosahexanoic Acid/Epa [Fish Oil Concentrate Softgel] 1 each PO DAILY 12/09/12 Aspirin [ASA -] 81 mg PO DAILY #0 07/20/14 Cholecalciferol (Vitamin D3) [Vitamin D3] 2,000 unit PO DAILY 07/20/14 Ubidecarenone/Vit E Acetate [Co Q-10 100 mg Softgel] 1 each PO DAILY 07/20/14 Pitavastatin Calcium [Livalo] 4 mg PO DAILY 08/15/14 Albuterol Sulfate [Proair Respiclick] 2 puff IH QID 09/28/16 Albuterol 0.083% Nebulizer [place] [Ventolin 0.083% Nebulizer Soln -] 1 amp NEB Q4H PRN #0 amp 10/03/16 Budesonide/Formeterol Fumarate [SYMBICORT 160/4.5mcg -] 2 puff IH BID #1 inhaler 10/03/16 Insulin (Levemir) [Levemir Vial] 28 units SQ AM ml 10/03/16 Metoprolol Succinate [Toprol XL -] 50 mg PO DAILY #30 tab 10/03/16 Tiotropium [place] [Spiriva] 1 puff IH DAILY inh 10/03/16 Clopidogrel Bisulfate [Plavix -] 75 mg PO DAILY 10/31/16 Ezetimibe [Zetia] 10 mg PO DAILY 10/31/16 Furosemide [Lasix] 40 mg PO DAILY 10/31/16 Losartan Potassium 25 mg PO BID 10/31/16 Prednisone [Deltasone -] 10 mg PO HS 10/31/16 Acetaminophen [Tylenol .Regular Strength -] 650 mg PO Q4H PRN #0 tablet Insulin (Levemir) [Levemir Vial] 10 units SQ HS ml 11/02/16 Insulin Sliding Scale [Novolog Vial Sliding Scale -] 1 vial SQ TIDAC units 10/11 Dulaglutide [Trulicity] 0.75 mg SQ WEEKLY 01/11/17 Nintedanib Esylate [Ofev] 100 mg PO DAILY 01/11/17 Anemia: No Asthma: No Cancer: No Cardiac Disorders: Yes ([place] 1991, CAD, PCI) CVA: No COPD: Yes CHF: No Dementia: No Diabetes: Yes GI Disorders: No Disorders: Yes (BPH) HTN: Yes Hypercholesterolemia: Yes Liver Disease: No Seizures: No Thyroid Disease: No - Surgical History Abdominal Surgery: Yes Appendectomy: Yes (1981) Cardiac Surgery: Yes (stents 2003) Cholecystectomy: No Lung Surgery: No Neurologic Surgery: No Orthopedic Surgery: Yes (rt knee 1995) - Immunization History Td Vaccination: Yes - Suicide/Smoking/Psychosocial Hx Smoking Status: No Smoking History: Former smoker Have you smoked in the past 12 months: No Number of Cigarettes Smoked Daily: 0 If you are a former smoker, when did you quit?: 1989 Information on smoking cessation initiated: No Hx Alcohol Use: No (denies) Drug/Substance Use Hx: No (denies) Substance Use Type: None Hx Substance Use Treatment: No Review of Systems - Review of Systems Constitutional: Yes: Weakness. No: Chills, Fever, Unexplained wgt Loss HEENTM: No: Nose Congestion, Throat Pain Respiratory: Yes: Cough, Shortness of Breath, SOB with Exertion, Productive cough Cardiac (ROS): No: Chest Pain, Palpitations ABD/GI: Yes: Abdominal Distended. No: Constipated, Diarrhea, Nausea, Vomiting : No: Burning, Dysuria Musculoskeletal: No: Back Pain, Neck Pain Integumentary: No: Bruising, Rash Neurological: No: Headache, Numbness, Tingling, Weakness, Dizziness Endocrine: No: Unexplained Weight Gain, Unexplained Weight Loss *Physical Exam - Vital Signs Last Vital Signs Temp Pulse Resp BP Pulse Ox 98 F 102 H 24 127/81 92 L 01/11/17 15:18 01/11/17 15:18 01/11/17 15:18 01/11/17 15:18 01/11/17 15:56 - Physical Exam General Appearance: Yes: Nourished, Appropriately Dressed, Other (pleasant conversive older male who answers appropriately and usually speaking in full sentences). No: Apparent Distress HEENT: positive: EOMI, RONALDO, Normal ENT Inspection, Normal Voice, Hearing Grossly Normal. negative: Scleral Icterus (R), Scleral Icterus (L), Nasal Congestion Neck: positive: Trachea midline, Supple. negative: Tender, Rigid Respiratory/Chest: positive: Crackles (fine bilateral worse at the bases), Wheezing (mild bilateral expiratory), Other (slightly tachypneic but speaking full sentences, pulse ox 94% on 2 LPM). negative: Respiratory Distress, Stridor Cardiovascular: positive: Regular Rhythm, Regular Rate. negative: Edema, Murmur Gastrointestinal/Abdominal: positive: Normal Bowel Sounds, Protuberent (skin a bit taught d/t protuberance). negative: Tender, Organomegaly, Pulsatile Mass, Guarding Musculoskeletal: positive: Normal Inspection. negative: CVA Tenderness, Decreased Range of Motion, Vertebral Tenderness Extremity: positive: Normal Capillary Refill, Normal Inspection, Normal Range of Motion. negative: Tender, Cyanosis, Swelling Integumentary: positive: Normal Color, Dry, Warm. negative: Erythema, Rash, Bruising Neurologic: positive: access coordinator II-XII NML intact (grossly), Fully Oriented, Alert, Normal Mood/Affect, Normal Response, Motor Strength /5 ED Treatment Course - LABORATORY CBC & Chemistry Diagram: 01/11/17 15:45 01/12/17 05:00 Medical Decision Making - Medical Decision Making 71 YOM with complex pulmonary history (fibrosis, CHF, COPD, SHANTI, 2 LPM home use prn) who presents with HEIN, cough with phlegm x2 wks. On exam the patient is moving air poorly and their are faint fine crackles bilaterally, mild bilateral expiratory wheezing. Protuberant abdomen but no pitting edema, pulse ox 92-95% on 2 LPM via NC. DDX IBNLT CHF exacerbation possibly 2/2 renal failure, valve d/o, anemia, liver disease, ACS, PE, PNA, etc. Ordered is CBCD, CMP, VBG, CXR, supplemental O2, EKG. Mild WBC elevation otherwise unconcerning CBCD. Cr elevated to 1.8 which is higher than his baseline. BNP also elevated above 1100 which is higher than measured for him previously [facility]. CXR suggests pulmonary vascular congestion otherwise unchanged from prior. Ordered is 40 mg IV Lasix and DuoNeb. The patient is admitted to inpatient telemetry for further workup and management. Dr. Fontanez is economics instructor for Dr. Higgins, who per our records admits for Dr. Garrido. *DC/Admit/Observation/Transfer Diagnosis at time of Disposition: CHF exacerbation Qualifiers: Congestive heart failure type: unspecified congestive heart failure type Qualified Code(s): I50.9 - Heart failure, unspecified [id number] kidney injury Qualifiers: Acute renal failure type: unspecified Chronic kidney disease stage: unspecified stage Qualified Code(s): N17.9 - Acute kidney failure, unspecified - Discharge Dispostion Condition at time of disposition: Guarded Admit: Yes - Referrals - Patient Instructions - Post Discharge Activity
--- NOTE | 2017-01-11 16:32 | PDOC ---
Attending Attestation - HPI HPI: 01/11/17 18:35 The patient is a 71 year old male, with a significant past medical history of COPD, pulmonary fibrosis, CHF, IDDM, and CAD, who presents to the emergency department complaining of progressively worsening dyspnea on exertion and progressively worsening productive cough with yellow sputum for approx. two weeks. The patient reports he recently visited his PCP Dr. Garrido three days ago who advised the patient to visit the ER if his symptoms persist. The patient states that over the past month the dyspnea on exertion has been progressively worse to where he now feels out of breath when walking short distances. The patient reports recent weight gain. He denies recent fever, chills, headache or dizziness. He denies recent nausea or vomit. He denies chest pain. Documentation prepared by Primo Nguyen, acting as director medical economics for Elfego Vang MD. - Physicial Exam PE: 01/11/17 22:32 Vitals: Triage Vital signs reviewed General Appearance: no acute distress, well nourished well developed Cardiac: Regular rate and rhythym, no murmurs, no rubs, no gallops Lungs: +Crackles. +Wheezing. Abdomen: Soft, non distended, normal bowel sounds, non tender to palpation Extremities: Full range of motion to all extremities, no cyanosis, clubbing, or edema Skin: Warm and dry, no rashes or lesions, no rash, no petechiae Psych: Normal mood, normal affect <Primo Nguyen - Last Filed: 01/11/17 22:32> - Resident Resident Name: Lisha Hernandez - ED Attending Attestation I have performed the following: I have examined & evaluated the patient, The case was reviewed & discussed with the resident, I agree w/resident's findings & plan, Exceptions are as noted - Medical Decision Making 01/12/17 00:25 Patient with progressively worsening shortness of breath history of pulmonary fibrosis also recently had his Lasix dose cut in half. Grossly elevated BNP chest x-ray with worsening congestion Most likely a nociceptive this time is CHF exacerbation with possible component of worsening pulmonary fibrosis We'll observe diuresis and reassess <Elfego Vang - Last Filed: 01/12/17 00:25>
[2017-01-11 16:56] LABS: ALBUMIN 3.2 g/dl (3.4-5.0); ANION GAP 11 (8-16); BILIRUBIN,TOTAL 0.5 mg/dL (0.2-1.0); CALCIUM 8.8 mg/dL (8.5-10.1); CO2 20 mmol/L (21-32); CREATININE 1.8 mg/dL (0.7-1.3); GLUCOSE,RANDOM 239 mg/dL (74-106); SGOT/AST 32 U/L (15-37); SGPT/ALT 42 U/L (12-78); TOT PROT 6.9 g/dl (6.4-8.2)
[2017-01-11 16:59] LABS: ALK PHOS 66 U/L (45-117); CPK 82 IU/L (39-308); TROPONIN I < 0.02 ng/ml (0.00-0.05)
[2017-01-11] MEDS ORDERED: ALBUTEROL SO4 2.5/IPRATROPIUM 0.5 INH SOL 3 ML VIAL.NEB. NEB ONE ×2 (17:14→17:25)
[2017-01-11 17:34] LABS: VENOUS BLOOD GAS HCO3 19.7 meq/L (19-25); VENOUS PH 7.39 (7.32-7.42)
[2017-01-11] MEDS ORDERED: FUROSEMIDE 40 MG/4 ML INJECTABLE VIAL IVPUSH ONE (18:32)
[2017-01-11] MEDS ORDERED: FUROSEMIDE 40 MG/4 ML INJECTABLE VIAL ONE ×2 (18:43→21:46)
[2017-01-11] MEDS ORDERED: ACETAMINOPHEN 325 MG TABLET (FP) PO PRN (21:29)
[2017-01-11] MEDS ORDERED: methylPREDNISolone NA SUCC 40 MG/1 ML VIAL IVPUSH ONE (21:41)
[2017-01-11] MEDS ORDERED: methylPREDNISolone NA SUCC 125 MG/2 ML VIAL IVPUSH SCH (21:45)
[2017-01-11] MEDS: FUROSEMIDE 40 MG/4 ML INJECTABLE VIAL IVPB SCH (21:51)
[2017-01-11] MEDS ORDERED: INSULIN DETEMIR 100 UNITS/ML MDV SQ SCH (22:00)
[2017-01-11] MEDS ORDERED: PATIENT'S OWN MEDICATION (NON-FORMULARY) (Albuterol Sulfate [Proair Respiclick] 2 PUFF) IH SCH (22:00)
[2017-01-12] MEDS: FAMOTIDINE 20 MG/50 ML IVPB 20 MG/50 ML MG IVPB SCH ×4 (00:51→21:53)
[2017-01-12] MEDS: HEPARIN NA (PORCINE) 5,000 UNITS/ML 1ML VIAL SQ SCH ×3 (00:52→21:53)
[2017-01-12] MEDS: BUDESONIDE/FORMETEROL FUMARATE 160/4.5 mcg INHALER IH SCH ×3 (00:54→21:53)
[2017-01-12] MEDS: ALLOPURINOL 100 MG TABLET (FP) PO SCH ×2 (00:54→21:52)
[2017-01-12] MEDS: ATORVASTATIN CA 20 MG TABLET (FP) PO SCH ×2 (00:54→21:52)
[2017-01-12 02:44] VITALS: BMI 32.7
[2017-01-12] MEDS: INSULIN DETEMIR 100 UNITS/ML MDV SQ SCH (06:38)
[2017-01-12] MEDS: INSULIN SLIDING SCALE (NOVOLOG) 1 VIAL SQ SCH ×3 (07:00→21:36)
[2017-01-12 07:21] LABS: ALBUMIN 3.4 g/dl (3.4-5.0); ALK PHOS 67 U/L (45-117); ANION GAP 14 (8-16); BILIRUBIN,TOTAL 0.7 mg/dL (0.2-1.0); CALCIUM 9.1 mg/dL (8.5-10.1); CO2 20 mmol/L (21-32); CREATININE 1.8 mg/dL (0.7-1.3); GLUCOSE,RANDOM 253 mg/dL (74-106); SGOT/AST 28 U/L (15-37); SGPT/ALT 40 U/L (12-78); TOT PROT 6.9 g/dl (6.4-8.2)
[2017-01-12] MEDS: EZETIMIBE 10 MG TABLET (FP) PO SCH (09:51)
[2017-01-12] MEDS: METOPROLOL SUCCINATE 50 MG TAB.SR.24H (FP) PO SCH (09:51)
[2017-01-12] MEDS: CLOPIDOGREL BISULFATE 75 MG TABLET (FP) PO SCH (09:52)
[2017-01-12] MEDS: ASPIRIN 81 MG CHEWABLE TABLETS PO SCH (09:52)
[2017-01-12] MEDS: FUROSEMIDE 40 MG/4 ML INJECTABLE VIAL IVPB SCH (09:52)
[2017-01-12] MEDS: CHOLECALCIFEROL (VITAMIN D3) 1,000 UNIT TABLET (FP) PO SCH (09:52)
[2017-01-12] MEDS ORDERED: PATIENT'S OWN MEDICATION (NON-FORMULARY) (Ubidecarenone/Vit E Acetate [Co Q-10 100 Mg Soft PO SCH (10:00)
[2017-01-12] MEDS ORDERED: methylPREDNISolone NA SUCC 125 MG/2 ML VIAL IVPUSH SCH (10:00)
[2017-01-12] MEDS ORDERED: NINTEDANIB ESYLATE 100 MG PO SCH (10:00)
--- NOTE | 2017-01-12 11:41 | CON.PULM ---
Consult Consult Specialty:: PULMONARY Referred by:: TORIN Reason for Consultation:: HEIN PROGRESSIVE - History of Present Illness Chief Complaint: HEIN History of Present Illness: 71 W MALE RETIRED [employer] WORK[employer], WITH H/O PULMONARY FIBROSIS,ASHD,DM2/ACUTE ON CHRONIC RESP FAILURE,CHRONIC O2 CKD,OSAS,OR,PCI STENT,PULMONARY HTN PRESENTS WITH PROGRESSIVE SOB ON MINIMAL EXERTION . PT REPORTS NOT USING PORTABLE O2 PRESCRIBED. DENIES CP,PALPS,FEVER,SYNCOPE OR HEADACHE. HE HAS MILD PITTING EDEMA B/L ANKLES. ALSO, PREDNISONE WAS TAPERED OFF. 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 No: AFIB Pulmonary: Yes: COPD, O2 Dependent, Pulmonary Fibrosis, Sleep Apnea. No: Cancer , Pneumonia, Pulmonary Embolus Renal/: Yes: Renal Inusuff, BPH, Hematuria Psych: Yes: Anxiety Endocrine: Yes: Diabetes Mellitus. No: Thierry's Disease - Past Surgical History Past Surgical History: Yes: Appendectomy, Cataract Removal (coronary artery stent by history. 2010 3 stents placed), Stent - Alcohol/Substance Use Hx Alcohol Use: No (denies) History of Substance Use: reports: None - Smoking History Smoking history: Former smoker Have you smoked in the past 12 months: No Aproximately how many cigarettes per day: 0 If you are a former smoker, when did you quit?: 1989 - Social History ADL: Independent Occupation: retired secondary to disability History of Recent Travel: No Home Medications - Allergies Allergies/Adverse Reactions: Allergies Allergy/AdvReac Type Severity Reaction Status Date / Time No Known Drug Allergies Allergy Verified 01/11/17 15:18 - Home Medications Home Medications: Ambulatory Orders Allopurinol [Zyloprim -] 50 mg PO HS 12/09/12 Docosahexanoic Acid/Epa [Fish Oil Concentrate Softgel] 1 each PO DAILY 12/09/12 Aspirin [ASA -] 81 mg PO DAILY #0 07/20/14 Cholecalciferol (Vitamin D3) [Vitamin D3] 2,000 unit PO DAILY 07/20/14 Ubidecarenone/Vit E Acetate [Co Q-10 100 mg Softgel] 1 each PO DAILY 07/20/14 Pitavastatin Calcium [Livalo] 4 mg PO DAILY 08/15/14 Albuterol Sulfate [Proair Respiclick] 2 puff IH QID 09/28/16 Albuterol 0.083% Nebulizer Belia [Ventolin 0.083% Nebulizer Soln -] 1 amp NEB Q4H PRN #0 amp 10/03/16 Budesonide/Formeterol Fumarate [SYMBICORT 160/4.5mcg -] 2 puff IH BID #1 inhaler 10/03/16 Insulin (Levemir) [Levemir Vial] 28 units SQ AM ml 10/03/16 Metoprolol Succinate [Toprol XL -] 50 mg PO DAILY #30 tab 10/03/16 Tiotropium [place] [Spiriva] 1 puff IH DAILY inh 10/03/16 Clopidogrel Bisulfate [Plavix -] 75 mg PO DAILY 10/31/16 Ezetimibe [Zetia] 10 mg PO DAILY 10/31/16 Furosemide [Lasix] 40 mg PO DAILY 10/31/16 Losartan Potassium 25 mg PO BID 10/31/16 Prednisone [Deltasone -] 10 mg PO HS 10/31/16 Acetaminophen [Tylenol .Regular Strength -] 650 mg PO Q4H PRN #0 tablet Insulin (Levemir) [Levemir Vial] 10 units SQ HS ml 11/02/16 Insulin Sliding Scale [Novolog Vial Sliding Scale -] 1 vial SQ TIDAC units 10/11 Dulaglutide [Trulicity] 0.75 mg SQ WEEKLY 01/11/17 Nintedanib Esylate [Ofev] 100 mg PO DAILY 01/11/17 Family Disease History - Family Disease History Family Disease History: Diabetes: Father, Brother, Heart Disease: Father, Other : Mother (dementia) Review of Systems - Review of Systems Cardiovascular: denies: Chest Pain Respiratory: reports: Cough, Exercise Intolerance, SOB on Exertion. denies: Hemoptysis, Wheezing Physical Exam Vital Sings: Vital Signs Temperature 97.9 F 01/12/17 02:00 Pulse Rate 83 01/12/17 06:06 Respiratory Rate 20 01/12/17 06:06 Blood Pressure 147/80 01/12/17 06:06 O2 Sat by Pulse Oximetry (%) 95 01/11/17 21:51 Constitutional: Yes: Well Nourished, Calm Eyes: Yes: EOM Intact HENT: Yes: Normocephalic Neck: Yes: Trachea Midline Cardiovascular: Yes: S1, S2 Respiratory: Yes: Rales, Rhonchi Gastrointestinal: Yes: Soft, Abdomen, Obese Edema: LLE: 1+, RLE: 1+ Labs: CBC, BMP 01/11/17 15:45 01/12/17 05:00 Imaging - Results Chest X-ray: Report Reviewed, Image Reviewed Problem List - Problems (1) Acute and chronic respiratory failure Code(s): J96.20 - ACUTE AND CHR RESP FAILURE, UNSP W HYPOXIA OR HYPERCAPNIA (2) CAD (coronary artery disease) Code(s): I25.10 - ATHSCL HEART DISEASE OF [place] CORONARY ARTERY W/O ANG PCTRS (3) CHF (congestive heart failure), NYHA class III Code(s): I50.9 - HEART FAILURE, UNSPECIFIED (4) CKD (chronic kidney disease) stage 3, GFR 30-59 ml/min Code(s): N18.3 - CHRONIC KIDNEY DISEASE, STAGE 3 (MODERATE) Assessment/Plan LIKELY WORSENING OF UNDERLYING CHRONIC INTERSTITIAL DISEASE AGREE WITH INCREASE STEROIDS MAY NEED MAINTENANCE DOSE OUTPATIENT GLYCEMIC CONTROL ENCOURAGE CONSTANT O2 USE CONTINUE HOME MEDS WILL FOLLOW Kristen CAIN MD
[2017-01-12] MEDS: TIOTROPIUM BROMIDE 18 MCG/INH (DEVICE W/ 5 CAPSULES) IH SCH (11:54)
--- NOTE | 2017-01-12 12:06 | HP ---
Admitting History and Physical - Primary Care Physician PCP: Lonnie Garrido - Admission Chief Complaint: worsening SOB History of Present Illness: 71 yrs old jacek lives at home multiple medical C0-morbidities including, COPD Pulmonary fibrosi, on Home O2 , SHANTI on CPAP at night, Pulmonary HTN, CAd s/p ME and Stent , T2DM , poorly controlled on Insulin, Hypercholesterolemia, F/U at Pulmonary clinic at [facility], patient was on Po prednisone for a while over past 3-4 wks Pulmologist gradual tapered Prednisone and stopped 1 wk ago, present to ED with gradually worsening SOB, HEIN, PND for past 2 wks lately felt extremely SOB so came to PMD office on Saturday, put back on Po prednisone 5 mg but no improvement in SOB , feels very SOB with minimal exertion , no C/O fever, chest pain, URTI symptoms, chest pain or palpitation, yesterday patient present with worsening chronic respiratory failure with hypoxia with elevated BNP improved with IV lasix and IV steroids. 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 No: AFIB Pulmonary: Yes: COPD, O2 Dependent, Pulmonary Fibrosis, Sleep Apnea. No: Cancer , Pneumonia, Pulmonary Embolus Renal/: Yes: Renal Inusuff, BPH, Hematuria Psych: Yes: Anxiety Endocrine: Yes: Diabetes Mellitus. No: Thierry's Disease - Past Surgical History Past Surgical History: Yes: Appendectomy, Cataract Removal (coronary artery stent by history. 2010 3 stents placed), Stent - Smoking History Smoking history: Former smoker Have you smoked in the past 12 months: No Aproximately how many cigarettes per day: 0 If you are a former smoker, when did you quit?: 1989 - Alcohol/Substance Use Hx Alcohol Use: No (denies) History of Substance Use: reports: None - Social History ADL: Independent Occupation: retired secondary to disability History of Recent Travel: No Home Medications - Allergies Allergies/Adverse Reactions: Allergies Allergy/AdvReac Type Severity Reaction Status Date / Time No Known Drug Allergies Allergy Verified 01/11/17 15:18 - Home Medications Home Medications: Ambulatory Orders Allopurinol [Zyloprim -] 50 mg PO HS 12/09/12 Docosahexanoic Acid/Epa [Fish Oil Concentrate Softgel] 1 each PO DAILY 12/09/12 Aspirin [ASA -] 81 mg PO DAILY #0 07/20/14 Cholecalciferol (Vitamin D3) [Vitamin D3] 2,000 unit PO DAILY 07/20/14 Ubidecarenone/Vit E Acetate [Co Q-10 100 mg Softgel] 1 each PO DAILY 07/20/14 Pitavastatin Calcium [Livalo] 4 mg PO DAILY 08/15/14 Albuterol Sulfate [Proair Respiclick] 2 puff IH QID 09/28/16 Albuterol 0.083% Nebulizer [place] [Ventolin 0.083% Nebulizer Soln -] 1 amp NEB Q4H PRN #0 amp 10/03/16 Budesonide/Formeterol Fumarate [SYMBICORT 160/4.5mcg -] 2 puff IH BID #1 inhaler 10/03/16 Insulin (Levemir) [Levemir Vial] 28 units SQ AM ml 10/03/16 Metoprolol Succinate [Toprol XL -] 50 mg PO DAILY #30 tab 10/03/16 Tiotropium [place] [Spiriva] 1 puff IH DAILY inh 10/03/16 Clopidogrel Bisulfate [Plavix -] 75 mg PO DAILY 10/31/16 Ezetimibe [Zetia] 10 mg PO DAILY 10/31/16 Furosemide [Lasix] 40 mg PO DAILY 10/31/16 Losartan Potassium 25 mg PO BID 10/31/16 Prednisone [Deltasone -] 10 mg PO HS 10/31/16 Acetaminophen [Tylenol .Regular Strength -] 650 mg PO Q4H PRN #0 tablet Insulin (Levemir) [Levemir Vial] 10 units SQ HS ml 11/02/16 Insulin Sliding Scale [Novolog Vial Sliding Scale -] 1 vial SQ TIDAC units 10/11 Dulaglutide [Trulicity] 0.75 mg SQ WEEKLY 01/11/17 Nintedanib Esylate [Ofev] 100 mg PO DAILY 01/11/17 Family Disease History - Family Disease History Family Disease History: Diabetes: Father, Brother, Heart Disease: Father, Other : Mother (dementia) Review of Systems - Review of Systems Constitutional: reports: No Symptoms Eyes: reports: No Symptoms HENT: reports: No Symptoms Neck: reports: No Symptoms Cardiovascular: reports: Shortness of Breath Respiratory: reports: Cough, Exercise Intolerance Gastrointestinal: reports: No Symptoms Genitourinary: reports: No Symptoms Breasts: reports: Discharge from Nipple Musculoskeletal: reports: Muscle Weakness Integumentary: reports: No Symptoms Neurological: reports: No Symptoms Endocrine: reports: Increased Thirst Hematology/Lymphatic: reports: No Symptoms Psychiatric: reports: No Symptoms Pain Intensity: 0 Physical Examination Vital Signs: Vital Signs Temperature 98 F 01/12/17 11:00 Pulse Rate 88 01/12/17 11:00 Respiratory Rate 20 01/12/17 11:00 Blood Pressure 142/73 01/12/17 11:00 O2 Sat by Pulse Oximetry (%) 95 01/12/17 11:00 Elderly man on O2 looks comfortable feels improved HEENT: Mm moist, no anemia, PERRLA, EOMI NECK; No JVD No Bruit, Thyroid Central CHEST: B/L Basal crepts CVS: S1S2 R no m/g/r ABD: No distention, non tender BS + EXT: Trace chanell afeet, no calf tenderness, Pulses + 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 focal Labs: CBC, BMP 01/11/17 15:45 01/12/17 05:00 Laboratory Results - last 24 hr 01/11/17 01/11/17 01/11/17 15:45 15:45 15:45 WBC 11.5 H RBC 5.04 Hgb 15.3 Hct 46.2 MCV 91.6 MCH 30.3 MCHC 33.1 RDW 14.7 Plt Count 178 MPV 8.5 Neutrophils % 57.5 D Lymphocytes % 27.7 D Monocytes % 12.1 H D Eosinophils % 1.8 D Basophils % 0.9 D VBG pH POC VBG pCO2 POC VBG pO2 Mixed VBG HCO3 Sodium 141 Potassium 4.5 Chloride 110 H Carbon Dioxide 20 L Anion Gap 11 BUN 36 H D Creatinine 1.8 H D Creat Clearance w eGFR 37.60 POC Glucometer Random Glucose 239 H Calcium 8.8 Magnesium Total Bilirubin 0.5 AST 32 ALT 42 D Alkaline Phosphatase 66 Creatine Kinase 82 Troponin I < 0.02 B-Natriuretic Peptide 1135.36 H Total Protein 6.9 Albumin 3.2 L Imaging - Results X-ray: Report Reviewed (Pulmonary congestion and Fibrosis) Problem List - Problems (1) Acute and chronic respiratory failure Assessment/Plan: Known case of COPD, Pulmonary HTN present with worsening respirtaory ssymptoms and Hypoxia, most likely due to COPd exacerbation and patient is steroid depended , Pulmonary consult, IV Solumedrol, Cont Duoneb, O2 inhalation and all bromchodilators, no indication for abx. Code(s): J96.20 - ACUTE AND CHR RESP FAILURE, UNSP W HYPOXIA OR HYPERCAPNIA Qualifiers: Respiratory failure complication: hypoxia Qualified Code(s): J96.21 - Acute and chronic respiratory failure with hypoxia (2) CKD (chronic kidney disease) stage 3, GFR 30-59 ml/min Assessment/Plan: CKD stgae 3 present with mild worsening of renal function will F/U BMP , Renal consult if worsening renal functions Code(s): N18.3 - CHRONIC KIDNEY DISEASE, STAGE 3 (MODERATE) (3) Uncontrolled diabetes mellitus Assessment/Plan: Known case of T2 DM, uncontrolled will F/U accicheck, correction dose insuliun and basal insulin , optimize as needed. F/U HBa!C Code(s): E11.65 - TYPE 2 DIABETES MELLITUS WITH HYPERGLYCEMIA Qualifiers: Diabetes mellitus type: type 2 Diabetes mellitus complication status: with circulatory complication (4) HTN (hypertension) Assessment/Plan: Chronic cot all home medications Code(s): I10 - ESSENTIAL (PRIMARY) HYPERTENSION (5) CHF exacerbation Assessment/Plan: H/O CHF present with worsening pulmoinary congestion improved will lasix will resume home dose of Lasix Cardiology consult. Code(s): I50.9 - HEART FAILURE, UNSPECIFIED Qualifiers: Congestive heart failure type: unspecified congestive heart failure type Qualified Code(s): I50.9 - Heart failure, unspecified (6) BPH (benign prostatic hyperplasia) Assessment/Plan: At present asymptomatic cont all home meds Code(s): N40.0 - BENIGN PROSTATIC HYPERPLASIA WITHOUT LOWER URINRY TRACT SYMP (7) CAD (coronary artery disease) Assessment/Plan: S/P ME and Stent on B Blockers, ASA, Plavix and Statin no new EKG changes. Cont all home meds cardiology consultation. Code(s): I25.10 - ATHSCL HEART DISEASE OF [place] CORONARY ARTERY W/O ANG PCTRS Qualifiers: Coronary Disease-Associated Artery/Lesion type: due to lipid rich plaque Qualified Code(s): I25.10 - Atherosclerotic heart disease of [place] coronary artery without angina pectoris; I25.83 - Coronary atherosclerosis due to lipid rich plaque; I25.83 - Coronary atherosclerosis due to lipid rich plaque; I25.83 - Coronary atherosclerosis due to lipid rich plaque
[2017-01-12] MEDS ORDERED: INSULIN SLIDING SCALE (NOVOLOG) 1 VIAL SQ SCH (16:30)
[2017-01-12] MEDS: methylPREDNISolone NA SUCC 40 MG/1 ML VIAL IVPUSH SCH (21:54)
[2017-01-12] MEDS: ALBUTEROL SO4 0.083% IH SOL 2.5 MG/3 ML VIAL.NEB. NEB PRN (22:31)
[2017-01-13] MEDS: INSULIN DETEMIR 100 UNITS/ML MDV SQ SCH (06:15)
[2017-01-13] MEDS: INSULIN SLIDING SCALE (NOVOLOG) 1 VIAL SQ SCH ×3 (06:17→17:05)
[2017-01-13] MEDS: BUDESONIDE/FORMETEROL FUMARATE 160/4.5 mcg INHALER IH SCH ×2 (09:24→21:23)
[2017-01-13] MEDS: TIOTROPIUM BROMIDE 18 MCG/INH (DEVICE W/ 5 CAPSULES) IH SCH (09:24)
[2017-01-13] MEDS: CLOPIDOGREL BISULFATE 75 MG TABLET (FP) PO SCH (09:25)
[2017-01-13] MEDS: ASPIRIN 81 MG CHEWABLE TABLETS PO SCH (09:25)
[2017-01-13] MEDS: methylPREDNISolone NA SUCC 40 MG/1 ML VIAL IVPUSH SCH (09:25)
[2017-01-13] MEDS: FAMOTIDINE 20 MG/50 ML IVPB 20 MG/50 ML MG IVPB SCH ×2 (09:25→21:22)
[2017-01-13] MEDS: HEPARIN NA (PORCINE) 5,000 UNITS/ML 1ML VIAL SQ SCH ×2 (09:25→21:21)
[2017-01-13] MEDS: EZETIMIBE 10 MG TABLET (FP) PO SCH (09:26)
[2017-01-13] MEDS: METOPROLOL SUCCINATE 50 MG TAB.SR.24H (FP) PO SCH (09:26)
[2017-01-13] MEDS: CHOLECALCIFEROL (VITAMIN D3) 1,000 UNIT TABLET (FP) PO SCH (09:26)
[2017-01-13] MEDS ORDERED: FUROSEMIDE 40 MG TABLET (FP) PO SCH (10:00)
--- NOTE | 2017-01-13 12:52 | PN ---
Progress Note, Physician Chief Complaint: Feels improved O2 sat is improving History of Present Illness: 11 yrs old jacek lives at home multiple medical C0-morbidities including, COPD Pulmonary fibrosi, on Home O2 , SHANTI on CPAP at night, Pulmonary HTN, CAd s/p CO and Stent , T2DM , poorly controlled on Insulin, Hypercholesterolemia, F/U at Pulmonary clinic - Current Medication List Current Medications: Active Medications Acetaminophen (Tylenol -) 650 mg PO Q4H PRN PRN Reason: FEVER OR PAIN Albuterol Sulfate (Ventolin 0.083% Nebulizer Soln -) 1 amp NEB Q4H PRN PRN Reason: SHORT OF BREATH/WHEEZING Last Admin: 01/12/17 22:31 Dose: 1 amp Allopurinol (Zyloprim -) 50 mg PO HS [facility] Last Admin: 01/12/17 21:52 Dose: 50 mg Aspirin (Asa -) 81 mg PO DAILY [facility] Last Admin: 01/13/17 09:25 Dose: 81 mg Atorvastatin Calcium (Lipitor -) 20 mg PO HS [facility] Last Admin: 01/12/17 21:52 Dose: 20 mg Budesonide/Formoterol Fumarate (Symbicort 160/4.5mcg -) 2 puff IH BID [facility] Last Admin: 01/13/17 09:24 Dose: 2 inh Cholecalciferol (Vitamin D3 -) 2,000 unit PO DAILY [facility] Last Admin: 01/13/17 09:26 Dose: 2,000 unit Clopidogrel Bisulfate (Plavix -) 75 mg PO DAILY [facility] Last Admin: 01/13/17 09:25 Dose: 75 mg Ezetimibe (Zetia -) 10 mg PO DAILY [facility] Last Admin: 01/13/17 09:26 Dose: 10 mg Furosemide (Lasix -) 40 mg PO DAILY [facility] Last Admin: 01/13/17 09:25 Dose: 40 mg Heparin Sodium (Porcine) (Heparin -) 5,000 unit SQ BID [facility] Last Admin: 01/13/17 09:25 Dose: 5,000 unit Famotidine/Sodium Chloride (Pepcid 20 Mg Premixed Ivpb -) 20 mg in 50 mls @ 100 mls/hr IVPB BID [facility] Last Admin: 01/13/17 09:25 Dose: 100 mls/hr Insulin Aspart (Novolog Vial Sliding Scale -) 1 vial SQ TIDAC [facility] PRN Reason: Protocol Last Admin: 01/13/17 11:31 Dose: 12 units Insulin Detemir (Levemir Vial) 28 units SQ AM [facility] Last Admin: 01/13/17 06:15 Dose: 28 unit Methylprednisolone Sodium Succinate (Solu-Medrol -) 40 mg IVPUSH BID [facility] Last Admin: 01/13/17 09:25 Dose: 40 mg Metoprolol Succinate (Toprol Xl -) 50 mg PO DAILY [facility] Last Admin: 01/13/17 09:26 Dose: 50 mg Non-Formulary Medication (Dulaglutide [Trulicity]) 0.75 mg SQ Fr@1000 [facility] Non-Formulary Medication (Nintedanib Esylate [Ofev]) 100 mg PO DAILY [facility] Tiotropium [place] (Spiriva -) 1 puff IH DAILY [facility] Last Admin: 01/13/17 09:24 Dose: 1 inh - Objective Vital Signs: Vital Signs Temperature 98.0 F 01/13/17 07:31 Pulse Rate 85 01/13/17 07:31 Respiratory Rate 20 01/13/17 07:43 Blood Pressure 134/76 01/13/17 07:31 O2 Sat by Pulse Oximetry (%) 96 01/13/17 07:48 Elderly man on O2 looks comfortable feels improved HEENT: Mm moist, no anemia, PERRLA, EOMI NECK; No JVD No Bruit, Thyroid Central CHEST: B/L Basal crepts CVS: S1S2 R no m/g/r ABD: No distention, non tender BS + EXT: Trace edema feet, no calf tenderness, Pulses + 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 Labs: CBC,CMP WBC 16.9 K/mm3 (4.0-10.0) H D 01/13/17 13:39 RBC 4.96 M/mm3 (4.00-5.60) 01/13/17 13:39 Hgb 14.9 GM/dL (11.7-16.9) 01/13/17 13:39 Hct 44.9 % (35.4-49) 01/13/17 13:39 MCV 90.6 fl (80-96) 01/13/17 13:39 MCH 30.1 pg (25.7-33.7) 01/13/17 13:39 MCHC 33.2 g/dl (32.0-35.9) 01/13/17 13:39 RDW 14.4 % (11.9-15.9) 01/13/17 13:39 Plt Count 204 K/MM3 (134-434) 01/13/17 13:39 MPV 8.5 fl (7.5-11.1) 01/13/17 13:39 Neutrophils % 92.0 % (42.8-82.8) H D 01/13/17 13:39 Lymphocytes % 4.4 % (8-40) L D 01/13/17 13:39 Monocytes % 3.4 % (3.8-10.2) L 01/13/17 13:39 Eosinophils % 0.0 % (0-4.5) D 01/13/17 13:39 Basophils % 0.2 % (0-2.0) 01/13/17 13:39 Sodium 131 mmol/L (136-145) L 01/13/17 13:39 Potassium 5.1 mmol/L (3.5-5.1) 01/13/17 13:39 Chloride 98 mmol/L (98-107) 01/13/17 13:39 Carbon Dioxide 18 mmol/L (21-32) L 01/13/17 13:39 Anion Gap 15 (8-16) 01/13/17 13:39 BUN 57 mg/dL (7-18) H D 01/13/17 13:39 Creatinine 2.1 mg/dL (0.7-1.3) H 01/13/17 13:39 Creat Clearance w eGFR 37.60 (>60) 01/12/17 05:00 POC Glucometer 394 UNITS (80-120) 01/13/17 16:58 Random Glucose 471 mg/dL (74-106) H* D 01/13/17 13:39 Calcium 9.0 mg/dL (8.5-10.1) 01/13/17 13:39 Magnesium 1.6 mg/dL (1.8-2.4) L 01/12/17 00:45 Total Bilirubin 0.7 mg/dL (0.2-1.0) D 01/12/17 05:00 AST 28 U/L (15-37) 01/12/17 05:00 ALT 40 U/L (12-78) 01/12/17 05:00 Alkaline Phosphatase 67 U/L (45-117) 01/12/17 05:00 Creatine Kinase 82 IU/L (39-308) 01/11/17 15:45 Troponin I < 0.02 ng/ml (0.00-0.05) 01/11/17 15:45 B-Natriuretic Peptide 1135.36 pg/ml (5-125) H 01/11/17 15:45 Total Protein 6.9 g/dl (6.4-8.2) 01/12/17 05:00 Albumin 3.4 g/dl (3.4-5.0) 01/12/17 05:00 - ....Imaging X-ray: Report Reviewed (Pulmonary congestion) Problem List - Problems (1) Acute and chronic respiratory failure Assessment/Plan: Known case of COPD, Pulmonary HTN present with worsening respiratory symptoms and Hypoxia, most likely due to COPD exacerbation and patient is steroid depended , Pulmonary consult, Cont Duoneb, O2 inhalation and all bronchodilators , no indication for abx, switch to PO Prednisone 30 mg daily. Code(s): J96.20 - ACUTE AND CHR RESP FAILURE, UNSP W HYPOXIA OR HYPERCAPNIA Qualifiers: Respiratory failure complication: hypoxia Qualified Code(s): J96.21 - Acute and chronic respiratory failure with hypoxia (2) CKD (chronic kidney disease) stage 3, GFR 30-59 ml/min Assessment/Plan: CKD stgae 3 present with mild worsening of renal function will F/U BMP , Renal consult if worsening renal functions Code(s): N18.3 - CHRONIC KIDNEY DISEASE, STAGE 3 (MODERATE) (3) Uncontrolled diabetes mellitus Assessment/Plan: Known case of T2 DM, uncontrolled will F/U accicheck, correction dose insuliun and basal insulin , optimize as needed. F/U HBa!C Code(s): E11.65 - TYPE 2 DIABETES MELLITUS WITH HYPERGLYCEMIA Qualifiers: Diabetes mellitus type: type 2 Diabetes mellitus complication status: with circulatory complication (4) HTN (hypertension) Assessment/Plan: Chronic cot all home medications Code(s): I10 - ESSENTIAL (PRIMARY) HYPERTENSION (5) CHF exacerbation Assessment/Plan: H/O CHF present with worsening pulmoinary congestion improved will lasix will resume home dose of Lasix Cardiology consult. Code(s): I50.9 - HEART FAILURE, UNSPECIFIED Qualifiers: Congestive heart failure type: unspecified congestive heart failure type Qualified Code(s): I50.9 - Heart failure, unspecified (6) CAD (coronary artery disease) Assessment/Plan: S/P CO and Stent on B Blockers, ASA, Plavix and Statin no new EKG changes. Cont all home meds cardiology consultation. Code(s): I25.10 - ATHSCL HEART DISEASE OF [place] CORONARY ARTERY W/O ANG PCTRS Qualifiers: Coronary Disease-Associated Artery/Lesion type: due to lipid rich plaque Qualified Code(s): I25.10 - Atherosclerotic heart disease of [place] coronary artery without angina pectoris; I25.83 - Coronary atherosclerosis due to lipid rich plaque; I25.83 - Coronary atherosclerosis due to lipid rich plaque; I25.83 - Coronary atherosclerosis due to lipid rich plaque (7) BPH (benign prostatic hyperplasia) Assessment/Plan: At present asymptomatic cont all home meds Code(s): N40.0 - BENIGN PROSTATIC HYPERPLASIA WITHOUT LOWER URINRY TRACT SYMP (8) [id number] kidney injury Assessment/Plan: Risin BUN Creat , pulmonary congestion improved will hold lasix F/U BMP in am Code(s): N17.9 - ACUTE KIDNEY FAILURE, UNSPECIFIED; N18.9 - CHRONIC KIDNEY DISEASE, UNSPECIFIED Qualifiers: Acute renal failure type: unspecified Chronic kidney disease stage: unspecified stage Qualified Code(s): N17.9 - Acute kidney failure, unspecified ; N18.9 - Chronic kidney disease, unspecified; N18.9 - Chronic kidney disease, unspecified
--- NOTE | 2017-01-13 13:30 | PN ---
Progress Note (short form) - Note Progress Note: PULMONARY SUBJECTIVE IMPROVEMENT VSS/AFEBRILE ANICTERIC B/L CRACKLES S1S2 BS+ SOFT NO EDEMA LABS/MEDS/IMAGING/NOTES REVIEWED WORSENING OF UNDERLYING CHRONIC INTERSTITIAL DISEASE WILL CHANGE STEROIDS TO ORAL/BRONCHODILATORS NEEDS TAPER AND LIKELY MAINTENANCE DOSE OUTPATIENT IS FOLLOWED AT TERTIARY CARE FOR ILD/CHRONIC RESP FAILURE GLYCEMIC CONTROL ENCOURAGE CONSTANT O2 USE 24/7 CONTINUE HOME MEDS NEEDS REPEAT PSG OUTPATIENT Kristen CAIN MD Problem List - Problems (1) Acute and chronic respiratory failure Code(s): J96.20 - ACUTE AND CHR RESP FAILURE, UNSP W HYPOXIA OR HYPERCAPNIA Qualifiers: Respiratory failure complication: hypoxia Qualified Code(s): J96.21 - Acute and chronic respiratory failure with hypoxia (2) CAD (coronary artery disease) Code(s): I25.10 - ATHSCL HEART DISEASE OF [place] CORONARY ARTERY W/O ANG PCTRS (3) CHF (congestive heart failure), NYHA class III Code(s): I50.9 - HEART FAILURE, UNSPECIFIED (4) CKD (chronic kidney disease) stage 3, GFR 30-59 ml/min Code(s): N18.3 - CHRONIC KIDNEY DISEASE, STAGE 3 (MODERATE)
[2017-01-13 13:46] LABS: BASOPHIL 0.2 % (0-2.0); MCH 30.1 pg (25.7-33.7); MCHC 33.2 g/dl (32.0-35.9); MEAN CELL VOLUME 90.6 fl (80-96); MEAN PLT VOLUME 8.5 fl (7.5-11.1); PLATELET COUNT 204 K/MM3 (134-434); RDW 14.4 % (11.9-15.9); WHITE BLOOD COUNT 16.9 K/mm3 (4.0-10.0)
[2017-01-13 14:09] LABS: ANION GAP 15 (8-16); CO2 18 mmol/L (21-32); CREATININE 2.1 mg/dL (0.7-1.3)
[2017-01-13 14:13] LABS: GLUCOSE,RANDOM 471 mg/dL (74-106)
--- NOTE | 2017-01-13 15:15 | PN ---
Progress Note (short form) - Note Progress Note: 71 year old male admitted wit progressive SOB after being tapered off steroids, known case of ILD with progressive worsening of symptoms, CAD, S/P MN, PCI/ stenting angina, DM, H/o LV failure.CKD. Ongoing Dyspnea with minimal activity,No chest pain or discomfort, no PND or orthpnea.No chest pain or discomfort. Active Medications Acetaminophen (Tylenol -) 650 mg PO Q4H PRN PRN Reason: FEVER OR PAIN Albuterol Sulfate (Ventolin 0.083% Nebulizer Soln -) 1 amp NEB Q4H PRN PRN Reason: SHORT OF BREATH/WHEEZING Last Admin: 01/12/17 22:31 Dose: 1 amp Allopurinol (Zyloprim -) 50 mg PO HS [facility] Last Admin: 01/13/17 21:22 Dose: 50 mg Aspirin (Asa -) 81 mg PO DAILY [facility] Last Admin: 01/13/17 09:25 Dose: 81 mg Atorvastatin Calcium (Lipitor -) 20 mg PO HS [facility] Last Admin: 01/13/17 21:22 Dose: 20 mg Budesonide/Formoterol Fumarate (Symbicort 160/4.5mcg -) 2 puff IH BID [facility] Last Admin: 01/13/17 21:23 Dose: 2 inh Cholecalciferol (Vitamin D3 -) 2,000 unit PO DAILY [facility] Last Admin: 01/13/17 09:26 Dose: 2,000 unit Clopidogrel Bisulfate (Plavix -) 75 mg PO DAILY [facility] Last Admin: 01/13/17 09:25 Dose: 75 mg Ezetimibe (Zetia -) 10 mg PO DAILY [facility] Last Admin: 01/13/17 09:26 Dose: 10 mg Heparin Sodium (Porcine) (Heparin -) 5,000 unit SQ BID [facility] Last Admin: 01/13/17 21:21 Dose: 5,000 unit Famotidine/Sodium Chloride (Pepcid 20 Mg Premixed Ivpb -) 20 mg in 50 mls @ 100 mls/hr IVPB BID [facility] Last Admin: 01/13/17 21:22 Dose: 100 mls/hr Insulin Aspart (Novolog Vial Sliding Scale -) 1 vial SQ TIDAC [facility] PRN Reason: Protocol Last Admin: 01/13/17 17:05 Dose: 10 units Insulin Detemir (Levemir Vial) 28 units SQ AM [facility] Last Admin: 01/13/17 06:15 Dose: 28 unit Metoprolol Succinate (Toprol Xl -) 50 mg PO DAILY [facility] Last Admin: 01/13/17 09:26 Dose: 50 mg Non-Formulary Medication (Dulaglutide [Trulicity]) 0.75 mg SQ Fr@1000 [facility] Non-Formulary Medication (Nintedanib Esylate [Ofev]) 100 mg PO DAILY [facility] Prednisone (Deltasone -) 30 mg PO DAILY [facility] Last Admin: 01/13/17 16:38 Dose: Not Given Tiotropium [place] (Spiriva -) 1 puff IH DAILY [facility] Last Admin: 01/13/17 09:24 Dose: 1 inh 71 year old male in no acute distress, no pallor, cyanosis or jaundice. Last Vital Signs Temp Pulse Resp BP Pulse Ox 97.8 F 90 20 140/90 96 01/13/17 19:53 01/13/17 19:53 01/13/17 19:53 01/13/17 19:53 01/13/17 19:53 NECK: Supple, no JVD, Carotid equal and upstroke were normal, no thyromegaly was apprciated.. HEART: PMI was in the 5th ICS, no heaves or thrill. Heart sounds were distant, no murmur or gallops were heard. LUNGS: Clear, decreased breath sound at the bases. ABDOMEN.: Obese, nontender, no hepatospenomegay or palpable masses. EXTREMITIES: No calf tenderness or dependent edema. CBC, BMP 01/13/17 13:39 01/13/17 13:39 A: 1. CLD, with excerbation. 2. Ongoing dyspnea secondary to #1 and COPD. 3. Poorly controlled DM 4. CAD,S/P [place] S/P PCI, Stenting. 5. Hypertension. 6. CKD. 7. Hypercholesterolemia. RECOMMENDATION: 1. Current medications. 2. Strict control of DM. 3. 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 4. Risk modification.
[2017-01-13] MEDS: predniSONE 10 MG TABLET (UD) PO SCH (16:38)
[2017-01-13] MEDS: ALLOPURINOL 100 MG TABLET (FP) PO SCH (21:22)
[2017-01-13] MEDS: ATORVASTATIN CA 20 MG TABLET (FP) PO SCH (21:22)
--- NOTE | 2017-01-13 21:50 | CONS ---
ADDENDUM DATE OF CONSULTATION: DATE OF DICTATION: 01/12/2017 FAMILY HISTORY: Father at 63, was a known diabetic. Had coronary artery disease, myocardial infarction. Mother in her late 80s, had dementia, has 2 brothers and 2 sisters. One of the brothers is a diabetic, and both sisters are overweight, but apparently healthy. ALLERGIES: None reported. MEDICATION: Prior to admission were as follows: 1. Livalo 4 mg p.o. daily. 2. Aspirin 81 mg p.o. daily. 3. Metoprolol succinate 15 mg p.o. daily. 4. Clopidogrel 75 mg p.o. daily. 5. Zetia 10 mg p.o. daily. 6. Furosemide 40 mg p.o. daily. 7. Losartan 25 mg p.o. b.i.d. 8. Levemir insulin 10 units subcutaneous at bedtime. 9. Novolog insulin according to sliding scale. 10. Trulicity 0.75 mg subcutaneous weekly. 11. Albuterol 2 inhalations q.i.d. p.r.n. 12. Albuterol via nebulizer q.4 h. p.r.n. 13. Symbicort 160/4.5 mcg 2 inhalations b.i.d. 14. Spiriva 1 inhalation daily. 15. Ofev 100 mg p.o. b.i.d. 16. Allopurinol 50 mg p.o. at bedtime. 17. Vitamin D3, 2000 international units p.o. daily. 18. CoQ10, dose is uncertain, 1 p.o. daily. 19. [place] 3 fatty acid 1 p.o. daily. REVIEW OF SYSTEMS: Constitutional: History of chills as mentioned above. No history of fever or night sweats reported. No history of unintentional weight loss. HEENT: No history of headaches, diplopia, blurred vision reported. No history of epistaxis, hoarseness. No history of tinnitus, possible deafness. Cardiovascular: See history of present illness. Respiratory: See history of present illness. Gastrointestinal: No history of nausea, vomiting, melena or hematemesis. No history of abdominal pain or discomfort. No history of change in bowel habits. Central nervous system: No history of seizures or syncope. No history of focal weakness. History of lightheadedness especially with exertion. Endocrine: See history of present illness. No history of intolerance to cold or warm weather. Musculoskeletal: Denies any myalgias or arthralgias. Genitourinary: No history of hematuria. Hematological: No history of ecchymosis, anemia, or bleeding. CURRENT MEDICATIONS: 1. Solu-Medrol 40 mg IV b.i.d. 2. Trulicity 0.75 mg subcutaneous once a week. 3. Ofev 100 mg p.o. daily. 4. Symbicort 2 inhalations q.i.d. 5. Tylenol 650 mg q.6 h. 6. Heparin subcutaneous 5000 units b.i.d. 7. Allopurinol 50 mg p.o. daily. 8. Pepcid 20 mg IV b.i.d. 9. Lipitor 20 mg p.o. at bedtime. 10. Novolog insulin by a sliding scale. 11. Levemir insulin 28 units subcutaneous in the a.m. 12. Furosemide 40 mg p.o. daily. 13. Aspirin 81 mg p.o. daily. 14. Plavix 75 mg p.o. daily. PHYSICAL EXAMINATION: General: A 71-year-old obese gentleman was in no acute distress, no pallor, cyanosis, clubbing or jaundice. Vital signs: Weight 206 pounds and 12 ounces. Blood pressure 128/75 mmHg. Pulse 95 beats per minute and regular. Temperature 98.2 degrees Fahrenheit. Oxygen saturation 95% on 3 L of oxygen. Neck: Supple. No jugulovenous distention, hepatojugular reflex was negative, carotids were 2+, no bruits were heard, and no thyromegaly was present. Heart: PMI was not localized, no heaves or thrills. Heart sounds were distant. No murmurs or gallops were appreciated. Lungs: Decreased breath sounds at both bases but clear. Abdomen: Soft, obese and nontender. No hepatosplenomegaly or palpable masses were felt. Bowel sounds were present. No bruits were heard. Extremities: No calf tenderness or dependent edema, pulses were equal. LABORATORY DATA: WBC count 11,500. Hemoglobin 15.3 g/dL. Platelet count 178,000. Differential revealed 12.1, monocytes, others were within normal limits. Chemistry: Sodium 136, potassium 4.9, chloride 102, CO2 of 20 mmol/L, BUN 37, creatinine 1.8 mg/dL. Glucose 253 mg/dL. Magnesium was 1.6 mg/dL. Normal liver function tests. CK on January 11, 2017, was 82, troponin was less than 0.03, BNP was 1135.36. Arterial blood gases are January 11, 2017: pH 7.39, pCO2 of 33.2, pO2 of 48.9, bicarbonate 19.7. X-ray chest, impression: Findings compatible with chronic lung disease. An element of congestion cannot be totally excluded. ECG was not available. IMPRESSION: 1. Increasing exertional dyspnea is most likely precipitated by cessation of prednisone. 2. Chronic interstitial pulmonary disease/chronic obstructive pulmonary disease. 3. There is superimposed congestive heart failure in view of clinical presentation and elevated BNP. 4. Coronary artery disease, status post myocardial infarction, status post percutaneous coronary intervention/stenting, stable angina pectoris. 5. Hypertension, hypertensive cardiovascular disease. 6. Insulin dependent diabetes mellitus. 7. Chronic kidney disease most likely related to number 6. 8. Hyperuricemia. 9. Dyslipidemia. 10. Exogenous obesity. 11. Poor compliance. RECOMMENDATION: 1. Suspect patient will require corticosteroids for an indefinite period, as he has had similar episodes in the past when steroids were tapered off. 2. Continue cardiac medications. 3. Counseled regarding his dietary restrictions and must not ambulate without help of oxygen. 4. Correction of magnesium level. 5. Patient may benefit from an insulin pump. 6. ECG. Prognosis guarded. Thank you for your referral. Yours sincerely, MORIS SHER M.D. [id number]
[2017-01-13] MEDS: ALBUTEROL SO4 0.083% IH SOL 2.5 MG/3 ML VIAL.NEB. NEB PRN (21:52)
[2017-01-13] MEDS ORDERED: INSULIN DETEMIR 100 UNITS/ML MDV SQ ONE (22:15)
[2017-01-14] MEDS ORDERED: INSULIN (NOVOLOG) ASPART 100 UNITS/ML 10ML VIAL SQ ONE ×2 (01:45→18:00)
[2017-01-14] MEDS: INSULIN DETEMIR 100 UNITS/ML MDV SQ SCH ×2 (06:18→18:17)
[2017-01-14] MEDS: INSULIN SLIDING SCALE (NOVOLOG) 1 VIAL SQ SCH ×4 (06:19→17:08)
[2017-01-14 07:30] LABS: ANION GAP 11 (8-16); CALCIUM 8.4 mg/dL (8.5-10.1); CO2 23 mmol/L (21-32); CREATININE 1.6 mg/dL (0.7-1.3); GLUCOSE,RANDOM 277 mg/dL (74-106)
[2017-01-14 07:45] LABS: BASOPHIL 0.1 % (0-2.0); MCH 29.9 pg (25.7-33.7); MCHC 33.2 g/dl (32.0-35.9); MEAN PLT VOLUME 8.6 fl (7.5-11.1); NEUTROPHILS 82.4 % (42.8-82.8); PLATELET COUNT 180 K/MM3 (134-434); RDW 14.5 % (11.9-15.9); WHITE BLOOD COUNT 16.6 K/mm3 (4.0-10.0)
[2017-01-14] MEDS: METOPROLOL SUCCINATE 50 MG TAB.SR.24H (FP) PO SCH (09:22)
[2017-01-14] MEDS: FAMOTIDINE 20 MG/50 ML IVPB 20 MG/50 ML MG IVPB SCH ×2 (09:22→21:41)
[2017-01-14] MEDS: CHOLECALCIFEROL (VITAMIN D3) 1,000 UNIT TABLET (FP) PO SCH (09:22)
[2017-01-14] MEDS: EZETIMIBE 10 MG TABLET (FP) PO SCH (09:23)
[2017-01-14] MEDS: ASPIRIN 81 MG CHEWABLE TABLETS PO SCH (09:23)
[2017-01-14] MEDS: HEPARIN NA (PORCINE) 5,000 UNITS/ML 1ML VIAL SQ SCH (09:23)
[2017-01-14] MEDS: predniSONE 10 MG TABLET (UD) PO SCH (09:23)
[2017-01-14] MEDS: CLOPIDOGREL BISULFATE 75 MG TABLET (FP) PO SCH (09:23)
[2017-01-14] MEDS: BUDESONIDE/FORMETEROL FUMARATE 160/4.5 mcg INHALER IH SCH ×2 (09:28→21:41)
[2017-01-14] MEDS: TIOTROPIUM BROMIDE 18 MCG/INH (DEVICE W/ 5 CAPSULES) IH SCH (09:28)
--- NOTE | 2017-01-14 09:52 | PN ---
Progress Note (short form) - Note Progress Note: Patient less SOB but on Prednisone 30mg. BGM's elevated as expected; seen by Endocrinology.Exaggerated bruising from heparin and insulin injections; To D/C heparin for next 24 hrs. Renal lab elevated: Renal MD evaluation. On Exam: Vital Signs Temp 97.6 F 01/14/17 07:58 Pulse 72 01/14/17 07:58 Resp 20 01/14/17 07:58 BP 130/73 01/14/17 07:58 Pulse Ox 95 01/14/17 07:57 Intake & Output 01/13/17 01/13/17 01/14/17 11:59 23:59 11:59 Intake Total 50 380 310 Balance 50 380 310 Weight 203 lb 12.8 oz 203 lb 6.4 oz Intake: IV 30 10 rt ac 01-12 20 30 10 IVPB 50 50 50 Oral 300 250 Other: Voiding Method Toilet Toilet Toilet # Unmeasured Voids Void 1 1 1 Bowel Movement No No Weight Measurement Method Standing Scale Standing Scale Alert Less SOB noted Chest: Decreased sounds with a few basilar rhonchi right and left side Cor: Reg Ext: No edema Abnormal Lab Results 01/13/17 01/13/17 01/14/17 13:39 13:39 05:10 WBC 16.9 H D 16.6 H Neutrophils % 92.0 H D Lymphocytes % 4.4 L D Monocytes % 3.4 L Sodium 131 L Carbon Dioxide 18 L BUN 57 H D Creatinine 2.1 H Random Glucose 471 H* D Calcium 01/14/17 05:10 WBC Neutrophils % Lymphocytes % Monocytes % Sodium Carbon Dioxide BUN 62 H Creatinine 1.6 H D Random Glucose 277 H D Calcium 8.4 L IMP: COPD with Acute Exacerbation Pulmonary Fibrosis DM currently uncontrolled ASHD with stent Diabetic Nephropathy Plan: F/U lab Adjustment Insulin by Endo Taper Prednisone as per Pulmonary MD D/C Heparin and observe
[2017-01-14] MEDS: ALBUTEROL SO4 0.083% IH SOL 2.5 MG/3 ML VIAL.NEB. NEB PRN (10:35)
--- NOTE | 2017-01-14 11:41 | EKG ---
Test Reason : Blood Pressure : / mmHG Vent. Rate : 083 BPM Atrial Rate : 083 BPM P-R Int : 198 ms QRS Dur : 118 ms QT Int : 396 ms P-R-T Axes : 047 002 000 degrees QTc Int : 465 ms NORMAL SINUS RHYTHM LEFT VENTRICULAR HYPERTROPHY WITH QRS WIDENING INFERIOR INFARCT (CITED ON OR BEFORE 18-OCT-1999) ABNORMAL ECG WHEN COMPARED WITH ECG OF 01-NOV-2016 09:33, NONSPECIFIC T WAVE ABNORMALITY NOW EVIDENT IN ANTERIOR LEADS Confirmed by JB BAUER MD ([id number]) on 01/14/2017 11:41:22 AM Referred By: Confirmed By:JB BAUER MD
[2017-01-14 12:10] LABS: URINE APPEARANCE CLEAR; URINE BILIRUBIN NEGATIVE (NEGATIVE); URINE BLOOD NEGATIVE (NEGATIVE); URINE COLOR LTYELLOW; URINE GLUCOSE (UA) 3+ (NEGATIVE); URINE KETONE NEGATIVE (NEGATIVE); URINE NITRITE NEGATIVE (NEGATIVE); URINE UROBILINOGEN NEGATIVE mg/dL (0.2-1.0)
[2017-01-14 12:11] LABS: URINE PROTEIN 2+ (NEGATIVE)
--- NOTE | 2017-01-14 12:17 | PN ---
Progress Note, Physician History of Present Illness: PULMONARY ALERT,FEELING BETTER,LESS DYSPNEIC ON NASAL O2. O2 SAT 96% - Current Medication List Current Medications: Active Medications Acetaminophen (Tylenol -) 650 mg PO Q4H PRN PRN Reason: FEVER OR PAIN Albuterol Sulfate (Ventolin 0.083% Nebulizer Soln -) 1 amp NEB Q4H PRN PRN Reason: SHORT OF BREATH/WHEEZING Last Admin: 01/13/17 21:52 Dose: 1 amp Allopurinol (Zyloprim -) 50 mg PO HS [facility] Last Admin: 01/13/17 21:22 Dose: 50 mg Aspirin (Asa -) 81 mg PO DAILY [facility] Last Admin: 01/14/17 09:23 Dose: 81 mg Atorvastatin Calcium (Lipitor -) 20 mg PO HS [facility] Last Admin: 01/13/17 21:22 Dose: 20 mg Budesonide/Formoterol Fumarate (Symbicort 160/4.5mcg -) 2 puff IH BID [facility] Last Admin: 01/14/17 09:28 Dose: 2 inh Cholecalciferol (Vitamin D3 -) 2,000 unit PO DAILY [facility] Last Admin: 01/14/17 09:22 Dose: 2,000 unit Clopidogrel Bisulfate (Plavix -) 75 mg PO DAILY [facility] Last Admin: 01/14/17 09:23 Dose: 75 mg Ezetimibe (Zetia -) 10 mg PO DAILY [facility] Last Admin: 01/14/17 09:23 Dose: 10 mg Famotidine/Sodium Chloride (Pepcid 20 Mg Premixed Ivpb -) 20 mg in 50 mls @ 100 mls/hr IVPB BID [facility] Last Admin: 01/14/17 09:22 Dose: 100 mls/hr Insulin Aspart (Novolog Vial Sliding Scale -) 1 vial SQ TIDAC [facility] PRN Reason: Protocol Last Admin: 01/14/17 11:42 Dose: 6 units Insulin Detemir (Levemir Vial) 28 units SQ AM [facility] Last Admin: 01/14/17 06:18 Dose: 28 unit Metoprolol Succinate (Toprol Xl -) 50 mg PO DAILY [facility] Last Admin: 01/14/17 09:22 Dose: 50 mg Non-Formulary Medication (Dulaglutide [Trulicity]) 0.75 mg SQ Fr@1000 [facility] Non-Formulary Medication (Nintedanib Esylate [Ofev]) 100 mg PO DAILY [facility] Prednisone (Deltasone -) 30 mg PO DAILY [facility] Last Admin: 01/14/17 09:23 Dose: 30 mg Tiotropium [place] (Spiriva -) 1 puff IH DAILY [facility] Last Admin: 01/14/17 09:28 Dose: 1 inh - Objective Vital Signs: Vital Signs Temperature 97.6 F 01/14/17 07:58 Pulse Rate 72 01/14/17 07:58 Respiratory Rate 20 01/14/17 07:58 Blood Pressure 130/73 01/14/17 07:58 O2 Sat by Pulse Oximetry (%) 95 01/14/17 07:57 Constitutional: Yes: Well Nourished, Calm Eyes: Yes: WNL HENT: Yes: WNL Cardiovascular: Yes: Regular Rate and Rhythm, S1, S2 Respiratory: Yes: Rales (BILATERAL CRACKLES) Gastrointestinal: Yes: Normal Bowel Sounds, Soft Extremities: Yes: WNL Edema: No Labs: CBC, BMP 01/14/17 05:10 01/14/17 05:10 Assessment/Plan Problem List - Problems (1) Acute and chronic respiratory failure Code(s): J96.20 - ACUTE AND CHR RESP FAILURE, UNSP W HYPOXIA OR HYPERCAPNIA (2) CAD (coronary artery disease) Code(s): I25.10 - ATHSCL HEART DISEASE OF [place] CORONARY ARTERY W/O ANG PCTRS (3) CHF (congestive heart failure), NYHA class III Code(s): I50.9 - HEART FAILURE, UNSPECIFIED (4) CKD (chronic kidney disease) stage 3, GFR 30-59 ml/min Code(s): N18.3 - CHRONIC KIDNEY DISEASE, STAGE 3 (MODERATE) Assessment/Plan PULMOARY FIBROSIS ILD COPD EXACERBATION ACUTE ON CHRONIC HYPOXEMIC RESPIRATORY FAILURE SHANTI PULMONARY HTN ASHD S/P STENT CKD PLAN INHALED BRONCHODILATORS STEROIDS O2 MONITOR LYTES,RENAL FUNCTION GLYCEMIC CONTROL DR PALACIOS
[2017-01-14 13:11] LABS: URINE MUCUS RARE; URINE RBC <1 /hpf (0-3); URINE WBC <1 /hpf (3-5)
--- NOTE | 2017-01-14 14:20 | CONSULT ---
Consultation: REQUESTING PROVIDER: Dr Higgins CONSULT REQUEST: We have been asked to medically evaluate this patient for ( specify). HISTORY OF PRESENT ILLNESS: 71 year old man with significant PMH of CKD, CHF, COPD, Pulmonary fibrosis, on Home oxygen , SHANTI on CPAP at night, Pulmonary HTN, CAD s/p SC, 2Stents , T2DM on Insulin, Hypercholesterolemia, hospitalized multiple times for CHF exacerbation who presented to the hospital complaining of SOB. He was recently treated with Prednisone by his Pulmunologist but was tapering week before coming to the hospital. He was admitted for CHF exacerbation. Over the course of his hospitalization his kidney function worsened. His Cr increased to 2.1 from 1.6 and BUN to 62 from 57 the day before. His glu increased to 471 the same time. Today the pt states that his breathing is much better and he doesn't have any complaints. He denies chest pain, SOB, dizziness, palpitations, dysuria, increased frequency, urgency, hematuria, fever, chills. REVIEW OF SYSTEMS CONSTITUTIONAL: Absent: fever, chills, diaphoresis, generalized weakness, malaise, loss of appetite, weight change HEENT: Absent: rhinorrhea, nasal congestion, throat pain, throat swelling CARDIOVASCULAR: Absent: chest pain, syncope, palpitations, irregular heart rate, lightheadedness , peripheral edema RESPIRATORY: Absent: cough, shortness of breath, dyspnea with exertion GASTROINTESTINAL: Absent: abdominal pain, abdominal distension, nausea, vomiting, diarrhea, constipation, melena, hematochezia GENITOURINARY: Absent: dysuria, frequency, urgency, hesitancy, hematuria, flank pain, genital pain MUSCULOSKELETAL: Absent: myalgia, arthralgia, joint swelling, back pain, neck pain SKIN: Absent: rash, itching, pallor HEMATOLOGIC/IMMUNOLOGIC: Absent: easy bleeding, easy bruising, lymphadenopathy, frequent infections ENDOCRINE: Absent: unexplained weight gain, unexplained weight loss NEUROLOGIC: Absent: headache PHYSICAL EXAMINATION Vital Signs - 24 hr 01/13/17 01/13/17 01/13/17 15:09 18:00 21:00 Temperature 98.2 F 97.5 F L Pulse Rate 80 83 Respiratory 20 20 20 Rate Blood Pressure 133/77 133/75 O2 Sat by Pulse 96 Oximetry (%) 01/13/17 01/14/17 01/14/17 22:00 02:00 06:00 Temperature 97.8 F 97.6 F 97.3 F L Pulse Rate 90 87 72 Respiratory 20 20 20 Rate Blood Pressure 140/90 163/95 136/72 O2 Sat by Pulse 96 95 Oximetry (%) 01/14/17 01/14/17 01/14/17 07:52 07:57 07:58 Temperature 97.3 F L 97.6 F Pulse Rate 77 72 Respiratory 20 20 20 Rate Blood Pressure 139/79 130/73 O2 Sat by Pulse 95 95 Oximetry (%) GENERAL: Awake, alert, and fully oriented, in no acute distress. HEAD: Normal with no signs of trauma. EYES: Pupils equal, round and reactive to light, extraocular movements intact EARS, NOSE, THROAT: Ears normal, nares patent, oropharynx clear without exudates. Moist mucous membranes. NECK: Normal range of motion, supple without lymphadenopathy, JVD, or masses. LUNGS: Breath sounds equal, clear to auscultation bilaterally. No wheezes, and no crackles. No accessory muscle use. HEART: Regular rate and rhythm, normal S1 and S2 without murmur, rub or gallop. ABDOMEN: Obese, soft, nontender, not distended, normoactive bowel sounds, no guarding, no rebound, no masses. MUSCULOSKELETAL: Normal range of motion at all joints. No bony deformities or tenderness. No CVA tenderness. UPPER EXTREMITIES: 2+ pulses. No peripheral edema. LOWER EXTREMITIES: 2+ pulses. No peripheral edema. NEUROLOGICAL: Normal speech, no facial asymmetry, gait not observed. PSYCHIATRIC: Cooperative. Good eye contact. Appropriate mood and affect. SKIN: Warm, dry, normal turgor, no rashes, 10 cm bruise on abdomen. Laboratory Results - last 24 hr 01/13/17 01/13/17 01/13/17 05:43 16:58 21:46 WBC RBC Hgb Hct MCV MCH MCHC RDW Plt Count MPV Neutrophils % Lymphocytes % Monocytes % Eosinophils % Basophils % Sodium Potassium Chloride Carbon Dioxide Anion Gap BUN Creatinine POC Glucometer 416 394 425 Random Glucose Calcium Urine Color Urine Appearance Urine pH Ur Specific [place] Urine Protein Urine Glucose (UA) Urine Ketones Urine Blood Urine Nitrite Urine Bilirubin Urine Urobilinogen Urine Mucus 01/14/17 01/14/17 01/14/17 01:00 05:10 05:10 WBC 16.6 H RBC 4.65 Hgb 13.9 Hct 41.8 MCV 90.0 MCH 29.9 MCHC 33.2 RDW 14.5 Plt Count 180 MPV 8.6 Neutrophils % 82.4 Lymphocytes % 8.5 D Monocytes % 9.0 D Eosinophils % 0.0 Basophils % 0.1 Sodium 136 Potassium 4.4 Chloride 102 Carbon Dioxide 23 D Anion Gap 11 BUN 62 H Creatinine 1.6 H D POC Glucometer 447 Random Glucose 277 H D Calcium 8.4 L Urine Color Urine Appearance Urine pH Ur Specific [place] Urine Protein Urine Glucose (UA) Urine Ketones Urine Blood Urine Nitrite Urine Bilirubin Urine Urobilinogen Urine Mucus 01/14/17 01/14/17 01/14/17 05:45 11:38 11:53 WBC RBC Hgb Hct MCV MCH MCHC RDW Plt Count MPV Neutrophils % Lymphocytes % Monocytes % Eosinophils % Basophils % Sodium Potassium Chloride Carbon Dioxide Anion Gap BUN Creatinine POC Glucometer 267 258 Random Glucose Calcium Urine Color Ltyellow Urine Appearance Clear Urine pH 5.0 Ur Specific [place] 1.014 Urine Protein 2+ H Urine Glucose (UA) 3+ H Urine Ketones Negative Urine Blood Negative Urine Nitrite Negative Urine Bilirubin Negative Urine Urobilinogen Negative Urine Mucus Rare Active Medications Generic Name Dose Route Start Last Admin Trade Name Freq PRN Reason Stop Dose Admin Acetaminophen 650 mg 01/11/17 21:29 Tylenol - PO Q4H PRN FEVER OR PAIN Albuterol Sulfate 1 amp 01/11/17 21:29 01/14/17 10:35 Ventolin 0.083% Nebulizer Soln - NEB 1 amp Q4H PRN Administration SHORT OF BREATH/WHEEZING Allopurinol 50 mg 01/11/17 22:00 01/13/17 21:22 Zyloprim - PO 50 mg HS [facility] Administration Aspirin 81 mg 01/12/17 10:00 01/14/17 09:23 Asa - PO 81 mg DAILY [facility] Administration Atorvastatin Calcium 20 mg 01/11/17 22:00 01/13/17 21:22 Lipitor - PO 20 mg HS [facility] Administration Budesonide/Formoterol Fumarate 2 puff 01/11/17 22:00 01/14/17 09:28 Symbicort 160/4.5mcg - IH 2 inh BID [facility] Administration Cholecalciferol 2,000 unit 01/12/17 10:00 01/14/17 09:22 Vitamin D3 - PO 2,000 unit DAILY [facility] Administration Clopidogrel Bisulfate 75 mg 01/12/17 10:00 01/14/17 09:23 Plavix - PO 75 mg DAILY [facility] Administration Ezetimibe 10 mg 01/12/17 10:00 01/14/17 09:23 Zetia - PO 10 mg DAILY [facility] Administration Famotidine/Sodium Chloride 20 mg in 50 mls @ 100 mls/hr 01/11/17 21:45 09:22 Pepcid 20 Mg Premixed Ivpb - IVPB 100 mls/hr BID [facility] Administration Insulin Aspart 1 vial 01/12/17 07:00 01/14/17 11:42 Novolog Vial Sliding Scale - SQ 6 units TIDAC [facility] Administration Protocol Insulin Detemir 28 units 01/12/17 07:00 01/14/17 06:18 Levemir Vial SQ 28 unit AM [facility] Administration Metoprolol Succinate 50 mg 01/12/17 10:00 01/14/17 09:22 Toprol Xl - PO 50 mg DAILY [facility] Administration Non-Formulary Medication 0.75 mg 01/18/17 10:00 Dulaglutide [Trulicity] SQ Fr@1000 [facility] Non-Formulary Medication 100 mg 01/12/17 10:00 Nintedanib Esylate [Ofev] PO DAILY [facility] Prednisone 30 mg 01/13/17 13:30 01/14/17 09:23 Deltasone - PO 30 mg DAILY [facility] Administration Tiotropium [place] 1 puff 01/12/17 10:00 01/14/17 09:28 Spiriva - IH 1 inh DAILY [facility] Administration ASSESSMENT/PLAN: 71 year old man with significant PMH of CKD, CHF, COPD, Pulmonary fibrosis, on Home oxygen , SHANTI on CPAP at night, Pulmonary HTN, CAD s/p SC, 2 stents , T2DM on Insulin, Hypercholesterolemia, hospitalized multiple times for CHF exacerbation who presented to the hospital complaining of SOB. He is admitted for CHF exacerbation. 1acute on chronic CKD 2CHF 3COPD 4Pulmopnary fibrosis 5CAD 6HDL 7DM 1-acute on chronic CKD-his renal function is coming back to his baseline, possibly related to elevated glucose, DMII, continue current management, avoid nephrotoxic substances and cont. hydration 2-continue Furosemide, 3-continue nebulizers and Prednisone, oxygen, and f/u Pulm recommendation 4-f/u Pulmonary 5-CAD cont aspirin, f/u Cardio, 6-cont meds 7-DM cont monitoring BGM, ISS, Trulicity and Levemir Dispo: We will continue to follow the patient. Thank you for this consultative opportunity. Problem List - Problems (1) [id number] kidney injury Code(s): N17.9 - ACUTE KIDNEY FAILURE, UNSPECIFIED; N18.9 - CHRONIC KIDNEY DISEASE, UNSPECIFIED Qualifiers: Acute renal failure type: unspecified Chronic kidney disease stage: unspecified stage Qualified Code(s): N17.9 - Acute kidney failure, unspecified ; N18.9 - Chronic kidney disease, unspecified; N18.9 - Chronic kidney disease, unspecified (2) CHF exacerbation Code(s): I50.9 - HEART FAILURE, UNSPECIFIED Qualifiers: Congestive heart failure type: unspecified congestive heart failure type Qualified Code(s): I50.9 - Heart failure, unspecified (3) Acute and chronic respiratory failure Code(s): J96.20 - ACUTE AND CHR RESP FAILURE, UNSP W HYPOXIA OR HYPERCAPNIA Qualifiers: Respiratory failure complication: hypoxia Qualified Code(s): J96.21 - Acute and chronic respiratory failure with hypoxia (4) CAD (coronary artery disease) Code(s): I25.10 - ATHSCL HEART DISEASE OF [place] CORONARY ARTERY W/O ANG PCTRS Qualifiers: Coronary Disease-Associated Artery/Lesion type: due to lipid rich plaque Qualified Code(s): I25.10 - Atherosclerotic heart disease of [place] coronary artery without angina pectoris; I25.83 - Coronary atherosclerosis due to lipid rich plaque; I25.83 - Coronary atherosclerosis due to lipid rich plaque; I25.83 - Coronary atherosclerosis due to lipid rich plaque (5) CHF (congestive heart failure), NYHA class III Code(s): I50.9 - HEART FAILURE, UNSPECIFIED (6) CKD (chronic kidney disease) stage 3, GFR 30-59 ml/min Code(s): N18.3 - CHRONIC KIDNEY DISEASE, STAGE 3 (MODERATE) (7) COPD (chronic obstructive pulmonary disease) Code(s): J44.9 - CHRONIC OBSTRUCTIVE PULMONARY DISEASE, UNSPECIFIED (8) Diabetes type 2, uncontrolled Code(s): E11.65 - TYPE 2 DIABETES MELLITUS WITH HYPERGLYCEMIA Visit type - Emergency Visit Emergency Visit: Yes ED Registration Date: 01/11/17 Care time: The patient presented to the Emergency Department on the above date and was hospitalized for further evaluation of their emergent condition. - New Patient This patient is new to me today: Yes Date on this admission: 01/14/17 - Critical Care Critical Care patient: No
--- NOTE | 2017-01-14 16:19 | PN ---
Teaching Attending Note Name of Resident: Blanca Christine (Nephrology) ATTENDING PHYSICIAN STATEMENT I saw and evaluated the patient. I reviewed the resident's note and discussed the case with the resident. I agree with the resident's findings and plan as documented. Nephrology Consult Please see consult filled out by resident. Pt is a 71 year old male with pmhx of ckd and pulm fibrosis who presents with increased shortness of breath. I was called to evaluate him for elevated creatinine. He follows with Dr Boswell. He was seen on last admission by Dr Amezquita who I spoke to as well. pmhx CKD, CHF, COPD, Pulmonary fibrosis, on Home oxygen , SHANTI on CPAP at night, Pulmonary HTN, CAD s/p CT, 2Stents , T2DM on Insulin, Hypercholesterolemia social hx denies family hx non contrib nkda Current Medications Generic Name Dose Route Start Last Admin Trade Name Freq PRN Reason Stop Dose Admin Acetaminophen 650 mg 01/11/17 21:29 Tylenol - PO Q4H PRN FEVER OR PAIN Albuterol Sulfate 1 amp 01/11/17 21:29 01/14/17 10:35 Ventolin 0.083% Nebulizer Soln - NEB 1 amp Q4H PRN Administration SHORT OF BREATH/WHEEZING Allopurinol 50 mg 01/11/17 22:00 01/13/17 21:22 Zyloprim - PO 50 mg HS LAKE Administration Aspirin 81 mg 01/12/17 10:00 01/14/17 09:23 Asa - PO 81 mg DAILY [place] Administration Atorvastatin Calcium 20 mg 01/11/17 22:00 01/13/17 21:22 Lipitor - PO 20 mg HS LAKE Administration Budesonide/Formoterol Fumarate 2 puff 01/11/17 22:00 01/14/17 09:28 Symbicort 160/4.5mcg - IH 2 inh BID [place] Administration Cholecalciferol 2,000 unit 01/12/17 10:00 01/14/17 09:22 Vitamin D3 - PO 2,000 unit DAILY [place] Administration Clopidogrel Bisulfate 75 mg 01/12/17 10:00 01/14/17 09:23 Plavix - PO 75 mg DAILY [place] Administration Ezetimibe 10 mg 01/12/17 10:00 01/14/17 09:23 Zetia - PO 10 mg DAILY [place] Administration Famotidine/Sodium Chloride 20 mg in 50 mls @ 100 mls/hr 01/11/17 21:45 09:22 Pepcid 20 Mg Premixed Ivpb - IVPB 100 mls/hr BID [place] Administration Insulin Aspart 1 vial 01/12/17 07:00 01/14/17 11:42 Novolog Vial Sliding Scale - SQ 6 units TIDAC [place] Administration Protocol Insulin Detemir 28 units 01/12/17 07:00 01/14/17 06:18 Levemir Vial SQ 28 unit AM [place] Administration Metoprolol Succinate 50 mg 01/12/17 10:00 01/14/17 09:22 Toprol Xl - PO 50 mg DAILY [place] Administration Non-Formulary Medication 0.75 mg 01/18/17 10:00 Dulaglutide [Trulicity] SQ Fr@1000 [place] Non-Formulary Medication 100 mg 01/12/17 10:00 Nintedanib Esylate [Ofev] PO DAILY [place] Prednisone 30 mg 01/13/17 13:30 01/14/17 09:23 Deltasone - PO 30 mg DAILY [place] Administration Tiotropium [place] 1 puff 01/12/17 10:00 01/14/17 09:28 Spiriva - IH 1 inh DAILY [place] Administration Laboratory Tests 08/15/14 08/17/14 10/02/16 14:59 05:30 05:35 Creatinine 1.1 1.1 1.5 H Urine Protein Urine Blood 11/01/16 11/02/16 01/12/17 07:00 05:35 05:00 Creatinine 1.7 H 1.4 H 1.8 H Urine Protein Urine Blood 01/13/17 01/14/17 01/14/17 13:39 05:10 11:53 Creatinine 2.1 H 1.6 H D Urine Protein 2+ H Urine Blood Negative Last Vital Signs Temp Pulse Resp BP Pulse Ox 98.2 F 81 20 132/76 95 01/14/17 14:00 01/14/17 14:00 01/14/17 07:58 01/14/17 14:00 01/14/17 07:57 cardio s1s2 pulm on oxygen GI soft ext neg edema neuro awake and alert skin neg rash Impression 1. TAZ 2. CKD3. COPD 3. Pulmonary fibrosis on Home oxygen 4. SHANTI on CPAP at night 5. Pulmonary HTN 6. CAD s/p CT, 2Stents 7. DM 8. Chol Plan - renal function is improving - called for outpt labs and workup - repeat labs in an - check prt to special education associate ratio - avoid nsaids - steroids Dr Pool
[2017-01-14 18:32] LABS: URINE LEUK ESTERASE Negative (NEGATIVE)
--- NOTE | 2017-01-14 20:36 | PN ---
Progress Note (short form) - Note Progress Note: 71 year old male admitted [place] progressive SOB after being tapered off steroids , known case of ILD with progressive worsening of symptoms, CAD, S/P IN, PCI/ stenting angina, DM, H/o LV failure.CKD. Resting comfortably but has dyspnea on minimal exertion, no PND or orthopnea. Active Medications Generic Name Dose Route Start Last Admin Trade Name Freq PRN Reason Stop Dose Admin Acetaminophen 650 mg 01/11/17 21:29 Tylenol - PO Q4H PRN FEVER OR PAIN Albuterol Sulfate 1 amp 01/11/17 21:29 01/14/17 10:35 Ventolin 0.083% Nebulizer Soln - NEB 1 amp Q4H PRN Administration SHORT OF BREATH/WHEEZING Allopurinol 50 mg 01/11/17 22:00 01/13/17 21:22 Zyloprim - PO 50 mg HS [place] Administration Aspirin 81 mg 01/12/17 10:00 01/14/17 09:23 Asa - PO 81 mg DAILY [place] Administration Atorvastatin Calcium 20 mg 01/11/17 22:00 01/13/17 21:22 Lipitor - PO 20 mg HS [place] Administration Budesonide/Formoterol Fumarate 2 puff 01/11/17 22:00 01/14/17 09:28 Symbicort 160/4.5mcg - IH 2 inh BID [place] Administration Cholecalciferol 2,000 unit 01/12/17 10:00 01/14/17 09:22 Vitamin D3 - PO 2,000 unit DAILY [place] Administration Clopidogrel Bisulfate 75 mg 01/12/17 10:00 01/14/17 09:23 Plavix - PO 75 mg DAILY [place] Administration Ezetimibe 10 mg 01/12/17 10:00 01/14/17 09:23 Zetia - PO 10 mg DAILY [place] Administration Famotidine/Sodium Chloride 20 mg in 50 mls @ 100 mls/hr 01/11/17 21:45 09:22 Pepcid 20 Mg Premixed Ivpb - IVPB 100 mls/hr BID [place] Administration Insulin Aspart 1 vial 01/12/17 07:00 01/14/17 17:08 Novolog Vial Sliding Scale - SQ 10 units TIDAC [place] Administration Protocol Insulin Detemir 28 units 01/12/17 07:00 01/14/17 06:18 Levemir Vial SQ 28 unit AM [place] Administration Insulin Detemir 8 units 01/14/17 18:00 01/14/17 18:17 Levemir Vial SQ 8 units TIDAC [place] Administration Metoprolol Succinate 50 mg 01/12/17 10:00 01/14/17 09:22 Toprol Xl - PO 50 mg DAILY [place] Administration Non-Formulary Medication 0.75 mg 01/18/17 10:00 Dulaglutide [Trulicity] SQ Fr@1000 [facility] Non-Formulary Medication 100 mg 01/12/17 10:00 Nintedanib Esylate [Ofev] PO DAILY [place] Prednisone 30 mg 01/13/17 13:30 01/14/17 09:23 Deltasone - PO 30 mg DAILY [place] Administration Tiotropium [place] 1 puff 01/12/17 10:00 01/14/17 09:28 Spiriva - IH 1 inh DAILY [place] Administration 71 year old male in no acute distress, no pallor, cyanosis or jaundice. Last Vital Signs Temp Pulse Resp BP Pulse Ox 97.5 F L 74 19 143/63 95 01/14/17 18:00 01/14/17 18:00 01/14/17 18:00 01/14/17 18:00 01/14/17 07:57 NECK: Supple, no JVD, Carotid equal and upstroke were normal, no thyromegaly was apprciated.. HEART: PMI was in the 5th ICS, no heaves or thrill. Heart sounds were distant, no murmur or gallops were heard. LUNGS: Bibasilar crepitations, right more pronounced than left. ABDOMEN.: Obese, nontender, no hepatospenomegay or palpable masses. EXTREMITIES: No calf tenderness or dependent edema. CBC, BMP 01/14/17 05:10 01/14/17 05:10 A: 1. CLD, with excerbation. 2. Ongoing dyspnea secondary to #1 and COPD. 3. Overlapping CHF cannot be excluded 4. CAD,S/P IN S/P PCI, Stenting. 5. Hypertension. 6. CKD. 7. Hypercholesterolemia. RECOMMENDATION: 1. Current medications. 2. Bedside echocardiogram. 3. Lasix on a prn basis.
[2017-01-14] MEDS: ATORVASTATIN CA 20 MG TABLET (FP) PO SCH (21:40)
[2017-01-14] MEDS: ALLOPURINOL 100 MG TABLET (FP) PO SCH (21:41)
[2017-01-15] MEDS ORDERED: INSULIN (NOVOLOG) ASPART 100 UNITS/ML 10ML VIAL ONE ×2 (06:22→10:10)
[2017-01-15] MEDS: INSULIN DETEMIR 100 UNITS/ML MDV SQ SCH ×3 (06:26→10:12)
[2017-01-15] MEDS: INSULIN SLIDING SCALE (NOVOLOG) 1 VIAL SQ SCH ×2 (06:28→10:13)
[2017-01-15 07:38] LABS: BASOPHIL 0.2 % (0-2.0); EOSINOPHIL 0.5 % (0-4.5); MCH 29.6 pg (25.7-33.7); MEAN CELL VOLUME 89.9 fl (80-96); MEAN PLT VOLUME 8.6 fl (7.5-11.1); NEUTROPHILS 71.3 % (42.8-82.8); PLATELET COUNT 182 K/MM3 (134-434); RDW 14.3 % (11.9-15.9); WHITE BLOOD COUNT 12.4 K/mm3 (4.0-10.0)
[2017-01-15 08:05] LABS: ANION GAP 10 (8-16); CALCIUM 8.5 mg/dL (8.5-10.1); CO2 24 mmol/L (21-32); CREATININE 1.3 mg/dL (0.7-1.3); GLUCOSE,RANDOM 208 mg/dL (74-106)
[2017-01-15 08:59] VITALS: BP 135/82; PULSE 79; TEMP 97.7
[2017-01-15] MEDS: TIOTROPIUM BROMIDE 18 MCG/INH (DEVICE W/ 5 CAPSULES) IH SCH (09:17)
[2017-01-15] MEDS: FAMOTIDINE 20 MG/50 ML IVPB 20 MG/50 ML MG IVPB SCH (09:17)
[2017-01-15] MEDS: BUDESONIDE/FORMETEROL FUMARATE 160/4.5 mcg INHALER IH SCH (09:17)
[2017-01-15] MEDS: METOPROLOL SUCCINATE 50 MG TAB.SR.24H (FP) PO SCH (09:18)
[2017-01-15] MEDS: predniSONE 10 MG TABLET (UD) PO SCH (09:18)
[2017-01-15] MEDS: EZETIMIBE 10 MG TABLET (FP) PO SCH (09:18)
[2017-01-15] MEDS: CHOLECALCIFEROL (VITAMIN D3) 1,000 UNIT TABLET (FP) PO SCH (09:18)
[2017-01-15] MEDS: CLOPIDOGREL BISULFATE 75 MG TABLET (FP) PO SCH (09:18)
[2017-01-15] MEDS: ALBUTEROL SO4 0.083% IH SOL 2.5 MG/3 ML VIAL.NEB. NEB PRN (09:40)
[2017-01-15] MEDS ORDERED: INSULIN DETEMIR 100 UNITS/ML MDV SQ SCH (10:45)
--- NOTE | 2017-01-15 13:13 | DS ---
Physical Examination Vital Signs: Vital Signs Temperature 97.7 F 01/15/17 08:58 Pulse Rate 79 01/15/17 08:58 Respiratory Rate 18 01/15/17 08:58 Blood Pressure 135/82 01/15/17 08:58 O2 Sat by Pulse Oximetry (%) 96 01/15/17 08:40 Constitutional: Yes: Calm Eyes: Yes: Conjunctiva Clear HENT: Yes: Atraumatic Cardiovascular: Yes: Regular Rate and Rhythm Respiratory: Yes: Diminished, Rhonchi (Both bases) Gastrointestinal: Yes: Soft Edema: No Neurological: Yes: Alert, Oriented Labs: CBC, BMP 01/15/17 05:25 01/15/17 05:25 Discharge Summary Reason For Visit: ACUTE ON CHRONIC HEART FAILURE. ACUTE RENAL FAILUR COPD with Acute Exacerbation Pulmonary Fibrosis Hypertension (Acute) Diabetes Mellitus Uncontrolled ASHD S/P IN and Coronary artery stents O2 Dependent Procedures: Principal: IV Steroids; aerosol treatments Other Procedures: Lab tests, Pulmonary and Cardiology consulattions, CXR and ABG Hospital Course: Steady improvement on current Rx and switched to Oral Rx. F/U as outpatient. Condition: Stable - Instructions Diet, Activity, Other Instructions: Limit all sugars and low salt diet. Continue to monitor Blood Glucose Followup with Dr. Garrido within 2 weeks. Call other MD's for an appointment. Referrals: Juarez Pang MD [Staff Physician] - Lonnie Garrido MD [Primary Care Provider] - Tahir Calle MD [Staff Physician] - Lore Christianson MD [Staff Physician] - Disposition: HOME - Home Medications Comprehensive Discharge Medication List: Ambulatory Orders Allopurinol [Zyloprim -] 50 mg PO HS 12/09/12 Docosahexanoic Acid/Epa [Fish Oil Concentrate Softgel] 1 each PO DAILY 12/09/12 Aspirin [ASA -] 81 mg PO DAILY #0 07/20/14 Cholecalciferol (Vitamin D3) [Vitamin D3] 2,000 unit PO DAILY 07/20/14 Ubidecarenone/Vit E Acetate [Co Q-10 100 mg Softgel] 1 each PO DAILY 07/20/14 Pitavastatin Calcium [Livalo] 4 mg PO DAILY 08/15/14 Albuterol Sulfate [Proair Respiclick] 2 puff IH QID 09/28/16 Albuterol 0.083% Nebulizer [place] [Ventolin 0.083% Nebulizer Soln -] 1 amp NEB Q4H PRN #0 amp 10/03/16 Budesonide/Formeterol Fumarate [SYMBICORT 160/4.5mcg -] 2 puff IH BID #1 inhaler 10/03/16 Metoprolol Succinate [Toprol XL -] 50 mg PO DAILY #30 tab 10/03/16 Tiotropium [place] [Spiriva] 1 puff IH DAILY inh 10/03/16 Clopidogrel Bisulfate [Plavix -] 75 mg PO DAILY 10/31/16 Ezetimibe [Zetia] 10 mg PO DAILY 10/31/16 Losartan Potassium 25 mg PO BID 10/31/16 Acetaminophen [Tylenol .Regular Strength -] 650 mg PO Q4H PRN #0 tablet Insulin Sliding Scale [Novolog Vial Sliding Scale -] 1 vial SQ TIDAC units 10/11 Dulaglutide [Trulicity] 0.75 mg SQ WEEKLY 01/11/17 Nintedanib Esylate [Ofev] 100 mg PO DAILY 01/11/17 Furosemide [Lasix -] 20 mg PO DAILY tablet 01/15/17 Insulin (Levemir) [Levemir Vial] 10 units SQ DAILY ml 01/15/17 Insulin (Levemir) [Levemir Vial] 28 units SQ HS ml 01/15/17 Prednisone [Deltasone -] 30 mg PO DAILY tablet 01/15/17
[2017-01-16] MEDS ORDERED: FUROSEMIDE 20 MG TABLET (FP) PO SCH (10:00)
[2017-01-16] MEDS ORDERED: INSULIN DETEMIR 100 UNITS/ML MDV SQ SCH (10:00)
[2017-01-16] MEDS ORDERED: predniSONE 10 MG TABLET (UD) PO SCH (10:00)
[2017-01-16 14:18] LABS: MICRO ALBUMIN RANDOM UR 875.2 ug/mL (Not Estab.)
[2017-01-18] MEDS ORDERED: PATIENT'S OWN MEDICATION (NON-FORMULARY) (Dulaglutide [Trulicity] 0.75 MG) SQ SCH (10:00)
== END 2017-01-15 11:04 | disposition home or self-care (01) | DRG 190 ==
LOC: JER 15:08 → JERBED 20:07 → UNDOADMIN 20:07 → JERBED 20:09 → UNDOADMIN 21:27 → J4W 23:15
PROVIDERS: ADMIT Internal Medicine; ATTEND Internal Medicine
DX: J44.1 Chronic obstructive pulmonary disease with (acute) exacerbation (principal); J96.20 Acute and chronic respiratory failure, unspecified whether with hypoxia or hypercapnia; N17.9 Acute kidney failure, unspecified; I13.0 Hypertensive heart and chronic kidney disease with heart failure and stage 1 through stage 4 chronic kidney disease, or unspecified chronic kidney disease; E11.22 Type 2 diabetes mellitus with diabetic chronic kidney disease; N18.3 Chronic kidney disease, stage 3 (moderate); J84.89 Other specified interstitial pulmonary diseases; J84.10 Pulmonary fibrosis, unspecified; E11.21 Type 2 diabetes mellitus with diabetic nephropathy; G47.33 Obstructive sleep apnea (adult) (pediatric); E11.65 Type 2 diabetes mellitus with hyperglycemia; I25.10 Atherosclerotic heart disease of native coronary artery without angina pectoris; I25.2 Old myocardial infarction; N40.0 Benign prostatic hyperplasia without lower urinary tract symptoms; I27.20 Pulmonary hypertension, unspecified; F41.8 Other specified anxiety disorders; E66.8 Other obesity; Z68.31 Body mass index [BMI] 31.0-31.9, adult; Z87.891 Personal history of nicotine dependence; Z95.5 Presence of coronary angioplasty implant and graft; Z99.81 Dependence on supplemental oxygen; Z79.4 Long term (current) use of insulin
CPT/HCPCS: 36415; 71020-TC; 80048; 80053; 81003; 81015; 82043; 82550; 82570; 82803; 83735; 83880; 84484; 85025; 93005; 93010; 93306-TC; 94640; 99283-25; J1644

== ENCOUNTER 2018-02-21 12:14 | Inpatient (IN) | payer OTHER, BC ==
[2018-02-21 12:27] VITALS: BMI 29.7
--- NOTE | 2018-02-21 12:43 | PDOC ---
Attending Attestation - HPI HPI: 02/21/18 13:58 The patient is a 72 year old male with a significant past medical history of COPD, pulmonary fibrosis, CHF, IDDM, and CAD sent in by Dr. Garrido, PCP, for lightheadedness and shortness of breath. Patient states he may be experiencing lightheadedness secondary to the numerous meds he is currently on. Patient is not currently on home O2. Patient also admits that he has been walking less than usual these past 6 months and spends most of his day sedentary. The patient denies chest pain, headache and dizziness. Denies fever, chills, nausea, vomit, diarrhea and constipation. Denies dysuria, frequency, urgency and hematuria. Allergies: NKA Past surgical history: None reported. Social history: No reported alcohol, drug or cigarette use. PCP: Dr. Garrido - Physicial Exam PE: 02/21/18 14:01 ADULT PE GENERAL: Pleasant, awake and alert. LUNGS: (+) crackles on both sides throughout all lung styles. No wheezes. (+) Hypoxia with changing position even with supplemental O2. HEART:Regular rate and rhythm, normal S1 and S2 without murmur, rub or gallop. ABDOMEN: Soft, nontender. EXTREMITIES: Normal range of motion. No clubbing or cyanosis. No erythema, or tenderness. (+) 3+ pitting edema bilaterally. NEUROLOGICAL: Cranial nerves II through XII grossly intact. Normal speech. No focal neurological deficits. MUSCULOSKELETAL: Back non-tender to palpation, no CVA tenderness SKIN: Warm, Dry, normal turgor, no rashes or lesions noted. <Bhargavi Whyte - Last Filed: 02/21/18 14:10> - Resident Resident Name: Uriah Gilbert - ED Attending Attestation I have performed the following: I have examined & evaluated the patient, The case was reviewed & discussed with the resident, I agree w/resident's findings & plan, Exceptions are as noted - Medical Decision Making 02/21/18 13:56 Laboratory Tests 02/21/18 02/21/18 13:23 13:23 WBC 18.7 H Hgb 15.3 Hct 48.4 Plt Count 156 INR 1.04 02/21/18 14:17 CXR - chronic intersitial lung disease, large heart 02/21/18 14:31 Laboratory Tests 11/21/17 12/28/18 05:25 13:00 Sodium 139 145 Potassium 4.3 3.5 Chloride 105 112 H Carbon Dioxide 24 24 Anion Gap 10 BUN 44 H D 37 H Creatinine 1.3 1.6 H Random Glucose 208 H D 65 L Creatine Kinase 52 Troponin I 0.03 B-Natriuretic Peptide 1911.[address] Ronaldo Nagel given <Melissa Dorado - Last Filed: 02/22/18 11:03>
--- NOTE | 2018-02-21 13:01 | PDOC ---
History of Present Illness - General Chief Complaint: Shortness of Breath Stated Complaint: RESPIRAORY (PCP SENT) Time Seen by Provider: 02/21/18 12:42 - History of Present Illness Initial Comments: 02/21/18 14:04 72M with a significant past medical history of COPD, pulmonary fibrosis,on 3L O2 at home, CHF, IDDM, and CAD, who was sent to the emergency department by his PCP for worsening dyspnea on exertion while at the office. The patient states that he usually has to use his oxygen tank when he gets out of the house, but hasn't today because he doesn't like to be seen with it. When he was seen at Dr. Garrido's office his saturated in the low 80's on room air. He says that he is otherwise unchanged from any other day, it's just that he had to walk and climb stairs without his oxygen that made him short of breath. In addition he states that his legs have have been swollen despite the lasix he has been taking. Denies cough, chest pain, abdominal pain, cold symptoms, fever. Past History - Past Medical History Allergies/Adverse Reactions: Allergies Allergy/AdvReac Type Severity Reaction Status Date / Time No Known Drug Allergies Allergy Verified 02/21/18 12:21 Home Medications: Ambulatory Orders Albuterol Sulfate [Proair Hfa] 2 inh IH TID 02/21/18 Allopurinol [Zyloprim -] 50 mg PO DAILY 02/21/18 Aspirin 81 mg PO DAILY 02/21/18 Cholecalciferol (Vitamin D3) [Vitamin D3 -] 2,000 unit PO DAILY 02/21/18 Dulaglutide [Trulicity] 1.5 mg SQ WEEKLY 02/21/18 Ezetimibe [Zetia -] 10 mg PO DAILY 02/21/18 Furosemide [Lasix -] 20 mg PO DAILY 02/21/18 Insulin (LOG) Aspart [NovoLOG -] 0 units SQ TID 02/21/18 Insulin (Levemir) [Levemir Vial] 0 unit SQ ASDIR 02/21/18 Lactobacillus Acidophilus [Acidophilus] 1 each PO DAILY 02/21/18 Losartan Potassium [Cozaar -] 25 mg PO DAILY 02/21/18 Metoprolol Succinate 50 mg PO HS 02/21/18 Nintedanib Esylate [Ofev] 150 mg PO BID 02/21/18 Pantoprazole Sodium [Protonix] 40 mg PO DAILY 02/21/18 Pitavastatin Calcium [Livalo] 4 mg PO DAILY 02/21/18 Ubidecarenone [Co Q-10] 200 mg PO DAILY 02/21/18 predniSONE [Deltasone -] 20 mg PO DAILY 02/21/18 Anemia: No Asthma: No Cancer: No Cardiac Disorders: Yes (SD 1991, CAD, PCI) CVA: No COPD: Yes CHF: No Dementia: No Diabetes: Yes GI Disorders: No Disorders: Yes (BPH) HTN: Yes Hypercholesterolemia: Yes Liver Disease: No Seizures: No Thyroid Disease: No - Surgical History Abdominal Surgery: Yes Appendectomy: Yes (1981) Cardiac Surgery: Yes (stents 2003) Cholecystectomy: No Lung Surgery: No Neurologic Surgery: No Orthopedic Surgery: Yes (rt knee 1995) - Immunization History Td Vaccination: Yes - Suicide/Smoking/Psychosocial Hx Smoking Status: No Smoking History: Unknown if ever smoked Have you smoked in the past 12 months: No Number of Cigarettes Smoked Daily: 0 If you are a former smoker, when did you quit?: 1989 Hx Alcohol Use: No (denies) Drug/Substance Use Hx: No (denies) Substance Use Type: None Hx Substance Use Treatment: No *Physical Exam - Vital Signs Last Vital Signs Temp Pulse Resp BP Pulse Ox 97.9 F 95 H 22 H 115/61 84 L 02/21/18 12:20 02/21/18 12:20 02/21/18 12:20 02/21/18 12:20 02/21/18 12:20 Moderate Sedation - Procedure Monitoring Vital Signs: Procedure Monitoring Vital Signs Temperature 97.9 F 02/21/18 12:20 Pulse Rate 95 H 02/21/18 12:20 Respiratory Rate 22 H 02/21/18 12:20 Blood Pressure 115/61 02/21/18 12:20 O2 Sat by Pulse Oximetry (%) 84 L 02/21/18 12:20 ED Treatment Course - LABORATORY CBC & Chemistry Diagram: 02/21/18 13:23 02/21/18 13:00 Medical Decision Making - Medical Decision Making 02/21/18 14:35 72m with COPD and pulmonary fibrosis presenting with increased dyspnea on exertion for the past day. O2 non-compliance vs chf exacerbation vs flu vs uri According to the patient he is at baseline except he hasn't been using his O2 when walking outside as he finds the nasal cannula unsightly. However we will get completely heart workup, flu swab, bnp.. Trop nehative. CXR : worsened opacities at the bases, bnp increased from previous visits. Will admit for chf exacerbation and start IV lasix. *DC/Admit/Observation/Transfer Diagnosis at time of Disposition: CHF (congestive heart failure), NYHA class III, Acute and chronic respiratory failure - Discharge Dispostion Decision to Admit order: Yes - Referrals - Patient Instructions - Post Discharge Activity
[2018-02-21] MEDS ORDERED: FUROSEMIDE 40 MG/4 ML INJECTABLE VIAL IVPUSH ONE ×2 (13:03→13:09)
[2018-02-21] MEDS ORDERED: FUROSEMIDE 40 MG/4 ML INJECTABLE VIAL ONE (13:24)
[2018-02-21 13:29] LABS: BASO % 0.9 % (0-2.0); EOS % 0.4 % (0-4.5); HEMATOCRIT 48.4 % (35.4-49); HEMOGLOBIN 15.3 GM/dL (11.7-16.9); MCH 29.8 pg (25.7-33.7); MCHC 31.6 g/dl (32.0-35.9); MEAN CELL VOLUME 94.4 fl (80-96); MEAN PLT VOLUME 7.9 fl (7.5-11.1); MONO % 6.1 % (3.8-10.2); NEUT % 72.6 % (42.8-82.8); PLATELET COUNT 156 K/MM3 (134-434); RBC 5.13 M/mm3 (4.00-5.60); RDW 15.7 % (11.9-15.9); WHITE BLOOD COUNT 18.7 K/mm3 (4.0-10.0)
[2018-02-21 13:42] LABS: INR 1.04 (0.83-1.09); PROTHROMBIN TIME (PATIENT) 12.3 SEC (9.7-13.0)
[2018-02-21 14:27] LABS: ALBUMIN 2.9 g/dl (3.4-5.0); ALK PHOS 54 U/L (45-117); ANION GAP 9 MMOL/L (8-16); BILIRUBIN,TOTAL 0.5 mg/dL (0.2-1); BLOOD UREA NITROGEN 37 mg/dL (7-18); CALCIUM 8.2 mg/dL (8.5-10.1); CHLORIDE 112 mmol/L (98-107); CO2 24 mmol/L (21-32); CREATININE 1.6 mg/dL (0.55-1.3); GLUCOSE,RANDOM 65 mg/dL (74-106); N-TERMINAL BNP 1911.4 pg/ml (5-125); POTASSIUM 3.5 mmol/L (3.5-5.1); SGOT/AST 35 U/L (15-37); SGPT/ALT 49 U/L (13-61); SODIUM 145 mmol/L (136-145); TOT PROT 5.6 g/dl (6.4-8.2)
--- NOTE | 2018-02-21 15:34 | HP ---
Admitting History and Physical - Primary Care Physician PCP: Lonnie Garrido - Admission Chief Complaint: CHF exacerbation History of Present Illness: 72 year old male presents w/ hypoxia, worsening le edema and dyspnea on exertion. Pt was at PCP office, did not take his home O2 with him, O2 sat on RA in 70s. Pt reports increased sob w/ exertion over the last 3 weeks. Pt also c/o intermittent lightheadedness/dizziness with position changes. Otherwise, denies any chest pain, In ED, pt in no acute distress. Sob improved with O2 via NC. History Source: Patient Limitations to Obtaining History: No Limitations - Past Medical History Cardiovascular: Yes: CAD, CHF, HTN, MD, Pulmonary Hypertension Pulmonary: Yes: COPD, O2 Dependent, Pulmonary Fibrosis, Sleep Apnea, Other (ILD) Renal/: Yes: Renal Inusuff, BPH, Hematuria Psych: Yes: Anxiety Endocrine: Yes: Diabetes Mellitus. No: [place]'s Disease - Past Surgical History Past Surgical History: Yes: Appendectomy, Cataract Removal (coronary artery stent by history. 2010 3 stents placed), Stent - Smoking History Smoking history: Former smoker Have you smoked in the past 12 months: No Aproximately how many cigarettes per day: 0 If you are a former smoker, when did you quit?: 1989 - Alcohol/Substance Use Hx Alcohol Use: No (denies) History of Substance Use: reports: None - Social History ADL: Independent Occupation: retired secondary to disability History of Recent Travel: No Home Medications - Allergies Allergies/Adverse Reactions: Allergies Allergy/AdvReac Type Severity Reaction Status Date / Time No Known Drug Allergies Allergy Verified 02/21/18 12:21 - Home Medications Home Medications: Ambulatory Orders Albuterol Sulfate [Proair Hfa] 2 inh IH TID 02/21/18 Allopurinol [Zyloprim -] 50 mg PO DAILY 02/21/18 Aspirin 81 mg PO DAILY 02/21/18 Cholecalciferol (Vitamin D3) [Vitamin D3 -] 2,000 unit PO DAILY 02/21/18 Dulaglutide [Trulicity] 1.5 mg SQ WEEKLY 02/21/18 Ezetimibe [Zetia -] 10 mg PO DAILY 02/21/18 Furosemide [Lasix -] 20 mg PO DAILY 02/21/18 Insulin (LOG) Aspart [NovoLOG -] 0 units SQ TID 02/21/18 Insulin (Levemir) [Levemir Vial] 0 unit SQ ASDIR 02/21/18 Lactobacillus Acidophilus [Acidophilus] 1 each PO DAILY 02/21/18 Losartan Potassium [Cozaar -] 25 mg PO DAILY 02/21/18 Metoprolol Succinate 50 mg PO HS 02/21/18 Nintedanib Esylate [Ofev] 150 mg PO BID 02/21/18 Pantoprazole Sodium [Protonix] 40 mg PO DAILY 02/21/18 Pitavastatin Calcium [Livalo] 4 mg PO DAILY 02/21/18 Ubidecarenone [Co Q-10] 200 mg PO DAILY 02/21/18 predniSONE [Deltasone -] 20 mg PO DAILY 02/21/18 Family Disease History - Family Disease History Family Disease History: Diabetes: Father, Brother, Heart Disease: Father, Other : Mother (dementia) Review of Systems Findings/Remarks: as per hpi Physical Examination Vital Signs: Vital Signs Temperature 97.9 F 02/21/18 12:20 Pulse Rate 95 H 02/21/18 12:20 Respiratory Rate 22 H 02/21/18 12:20 Blood Pressure 115/61 02/21/18 12:20 O2 Sat by Pulse Oximetry (%) 96 02/21/18 13:34 Constitutional: Yes: Well Nourished, No Distress, Calm Labs: CBC, BMP 02/21/18 13:23 02/21/18 13:00 Imaging - Results Chest X-ray: Report Reviewed Problem List - Problems (1) CHF exacerbation Assessment/Plan: presents increased le edema, sob on exertion hypoxia, suspect 2/2 not using O2 as directed bnp elevation, mild iv lasix monitor renal function daily weights low na diet Code(s): I50.9 - HEART FAILURE, UNSPECIFIED Qualifiers: Heart failure type: combined systolic and diastolic Qualified Code(s): I50.43 - Acute on chronic combined systolic (congestive) and diastolic ( congestive) heart failure (2) CAD (coronary artery disease) Assessment/Plan: s/p pci continue asa/statin Code(s): I25.10 - ATHSCL HEART DISEASE OF [place] CORONARY ARTERY W/O ANG PCTRS Qualifiers: [place] vs. transplanted heart: [place] heart Associated angina: without angina (3) CKD (chronic kidney disease) stage 3, GFR 30-59 ml/min Assessment/Plan: stable, at baseline Code(s): N18.3 - CHRONIC KIDNEY DISEASE, STAGE 3 (MODERATE) (4) Diabetes mellitus Assessment/Plan: stable bgm insulin sliding scale trulicity/levemir outpt Code(s): E11.9 - TYPE 2 DIABETES MELLITUS WITHOUT COMPLICATIONS Qualifiers: Diabetes mellitus type: type 2 Diabetes mellitus longterm insulin use: with longterm use Diabetes mellitus complication status: with kidney complications Diabetes mellitus complication detail: with chronic kidney disease Chronic kidney disease stage: stage 3 (moderate) Qualified Code(s): E11.22 - Type 2 diabetes mellitus with diabetic chronic kidney disease; N18.3 - Chronic kidney disease, stage 3 (moderate); Z79.4 - residential (current) use of insulin (5) HTN (hypertension) Assessment/Plan: controlled continue home meds Code(s): I10 - ESSENTIAL (PRIMARY) HYPERTENSION Qualifiers: Hypertension type: essential hypertension Qualified Code(s): I10 - Essential (primary) hypertension (6) COPD (chronic obstructive pulmonary disease) Assessment/Plan: ILD, stable continue bronchodilators/ prednisone O2 via NC outpt pulm f/u Code(s): J44.9 - CHRONIC OBSTRUCTIVE PULMONARY DISEASE, UNSPECIFIED Qualifiers: COPD type: unspecified COPD Qualified Code(s): J44.9 - Chronic obstructive pulmonary disease, unspecified (7) BPH (benign prostatic hyperplasia) Assessment/Plan: stable Code(s): N40.0 - BENIGN PROSTATIC HYPERPLASIA WITHOUT LOWER URINRY TRACT SYMP Qualifiers: Lower urinary tract symptom presence: symptoms absent Qualified Code(s): N40.0 - Benign prostatic hyperplasia without lower urinary tract symptoms Assessment/Plan Dispo: Home, anticipate discharge in 24-48 hours
[2018-02-21 16:26] LABS: ANISOCYTOSIS 1+; MACROCYTOSIS 0; PLATELET ESTIMATE DECREASED
[2018-02-21] MEDS: INSULIN (NOVOLOG) ASPART 100 UNITS/ML 10ML VIAL SQ SCH ×2 (18:44→21:06)
[2018-02-21] MEDS: POTASSIUM CHLORIDE TABS 20 MEQ TABLET.ER (FP) PO SCH (18:53)
--- NOTE | 2018-02-21 19:17 | EKG ---
Test Reason : Blood Pressure : / mmHG Vent. Rate : 085 BPM Atrial Rate : 085 BPM P-R Int : 204 ms QRS Dur : 104 ms QT Int : 360 ms P-R-T Axes : 032 -10 005 degrees QTc Int : 428 ms POOR DATA QUALITY, INTERPRETATION MAY BE ADVERSELY AFFECTED NORMAL SINUS RHYTHM MODERATE VOLTAGE CRITERIA FOR LVH, MAY BE NORMAL VARIANT INFERIOR INFARCT (CITED ON OR BEFORE 18-OCT-1999) ABNORMAL ECG WHEN COMPARED WITH ECG OF 11-JAN-2017 16:14, ST NOW DEPRESSED IN ANTERIOR LEADS Confirmed by LIZETTE LALA, JB ([id number] on 02/21/2018 7:17:06 PM Referred By: Confirmed By:JB BAUER MD
[2018-02-21] MEDS ORDERED: INSULIN (NOVOLOG) ASPART 100 UNITS/ML 10ML VIAL ONE (20:44)
[2018-02-21] MEDS: ALBUTEROL SO4 8 GM HFA INHALER IH SCH (21:07)
[2018-02-21] MEDS ORDERED: ATORVASTATIN CA 20 MG TABLET (FP) PO SCH (22:00)
[2018-02-22] MEDS: ALBUTEROL SO4 8 GM HFA INHALER IH SCH ×2 (06:29→14:18)
[2018-02-22] MEDS: INSULIN (NOVOLOG) ASPART 100 UNITS/ML 10ML VIAL SQ SCH ×2 (06:34→12:29)
[2018-02-22 07:45] LABS: ANION GAP 9 MMOL/L (8-16); BLOOD UREA NITROGEN 31 mg/dL (7-18); CALCIUM 7.8 mg/dL (8.5-10.1); CHLORIDE 112 mmol/L (98-107); CO2 23 mmol/L (21-32); CREATININE 1.4 mg/dL (0.55-1.3); GLUCOSE,RANDOM 68 mg/dL (74-106); MAGNESIUM 1.8 mg/dL (1.8-2.4); PHOSPHOROUS 2.9 mg/dL (2.5-4.9); SODIUM 144 mmol/L (136-145)
[2018-02-22] MEDS ORDERED: PT OWN MED DRAWER 7, Y5N ONE (09:41)
[2018-02-22] MEDS: POTASSIUM CHLORIDE TABS 20 MEQ TABLET.ER (FP) PO SCH (09:45)
[2018-02-22 09:47] LABS: BASO % 0.5 % (0-2.0); EOS % 0.7 % (0-4.5); HEMOGLOBIN 14.5 GM/dL (11.7-16.9); LYMPH % 21.2 % (8-40); MCH 32.1 pg (25.7-33.7); MCHC 34.4 g/dl (32.0-35.9); MEAN CELL VOLUME 93.1 fl (80-96); MEAN PLT VOLUME 8.6 fl (7.5-11.1); MONO % 6.4 % (3.8-10.2); NEUT % 71.2 % (42.8-82.8); PLATELET COUNT 137 K/MM3 (134-434); RBC 4.51 M/mm3 (4.00-5.60); RDW 15.5 % (11.9-15.9); WHITE BLOOD COUNT 11.6 K/mm3 (4.0-10.0)
[2018-02-22] MEDS ORDERED: EZETIMIBE 10 MG TABLET (FP) PO SCH (10:00)
[2018-02-22] MEDS ORDERED: LOSARTAN POTASSIUM 25 MG TABLET PO SCH (10:00)
[2018-02-22] MEDS ORDERED: FUROSEMIDE 40 MG/4 ML INJECTABLE VIAL IVPUSH SCH (10:00)
[2018-02-22] MEDS ORDERED: CHOLECALCIFEROL (VITAMIN D3) 1,000 UNIT TABLET (FP) PO SCH (10:00)
[2018-02-22] MEDS ORDERED: predniSONE 20 MG TABLET (UD) PO SCH (10:00)
[2018-02-22] MEDS ORDERED: ALLOPURINOL 100 MG TABLET (FP) PO SCH (10:00)
[2018-02-22] MEDS ORDERED: PANTOPRAZOLE 40 MG TABLET (FP) PO SCH (10:00)
[2018-02-22] MEDS ORDERED: ASPIRIN 81 MG CHEWABLE TABLETS PO SCH (10:00)
[2018-02-22 13:54] VITALS: BP 128/68; PULSE 83; TEMP 97.5
[2018-02-22] MEDS: NINTEDANIB ESYLATE 150 MG PO SCH (15:31)
--- NOTE | 2018-02-24 16:04 | DS ---
Physical Examination Vital Signs: Vital Signs Temperature 36.4 C L 02/22/18 09:00 Pulse Rate 83 02/22/18 09:00 Respiratory Rate 20 02/22/18 09:00 Blood Pressure 128/68 02/22/18 09:00 O2 Sat by Pulse Oximetry (%) 93 L 02/22/18 09:00 Labs: CBC, BMP 02/22/18 07:00 02/22/18 07:00 Discharge Summary Reason For Visit: ACUTE ON CHRONIC CONGESTIVE HEART FAILURE Condition: Good - Instructions Diet, Activity, Other Instructions: resume previous diet and activity. please wear oxygen as instructed Referrals: Lonnie Garrido MD [Staff Physician] - Jimmy Smith MD [Staff Physician] - Disposition: HOME - Home Medications Comprehensive Discharge Medication List: Ambulatory Orders Albuterol Sulfate [Proair Hfa] 2 inh IH TID 02/21/18 Allopurinol [Zyloprim -] 50 mg PO DAILY 02/21/18 Aspirin 81 mg PO DAILY 02/21/18 Cholecalciferol (Vitamin D3) [Vitamin D -] 2,000 unit PO DAILY 02/21/18 Dulaglutide [Trulicity] 1.5 mg SQ WEEKLY 02/21/18 Ezetimibe [Zetia -] 10 mg PO DAILY 02/21/18 Furosemide [Lasix -] 20 mg PO DAILY 02/21/18 Insulin (LOG) Aspart [NovoLOG -] 0 units SQ TID 02/21/18 Insulin (Levemir) [Levemir Vial] 0 unit SQ ASDIR 02/21/18 Lactobacillus Acidophilus [Acidophilus] 1 each PO DAILY 02/21/18 Losartan Potassium [Cozaar -] 25 mg PO DAILY 02/21/18 Metoprolol Succinate 50 mg PO HS 02/21/18 Nintedanib Esylate [Ofev] 150 mg PO BID 02/21/18 Pantoprazole Sodium [Protonix] 40 mg PO DAILY 02/21/18 Pitavastatin Calcium [Livalo] 4 mg PO DAILY 02/21/18 Ubidecarenone [Co Q-10] 200 mg PO DAILY 02/21/18 predniSONE [Deltasone -] 20 mg PO DAILY 02/21/18
== END 2018-02-22 14:42 | disposition home or self-care (01) | DRG 291 ==
LOC: JER 12:14 → JERBED 15:07 → J8W 17:12
PROVIDERS: ADMIT Internal Medicine; ATTEND Internal Medicine
DX: I13.0 Hypertensive heart and chronic kidney disease with heart failure and stage 1 through stage 4 chronic kidney disease, or unspecified chronic kidney disease (principal); I50.43 Acute on chronic combined systolic (congestive) and diastolic (congestive) heart failure; J96.20 Acute and chronic respiratory failure, unspecified whether with hypoxia or hypercapnia; I25.10 Atherosclerotic heart disease of native coronary artery without angina pectoris; N18.3 Chronic kidney disease, stage 3 (moderate); E11.22 Type 2 diabetes mellitus with diabetic chronic kidney disease; J44.9 Chronic obstructive pulmonary disease, unspecified; J84.10 Pulmonary fibrosis, unspecified; N40.0 Benign prostatic hyperplasia without lower urinary tract symptoms; E87.6 Hypokalemia; D72.829 Elevated white blood cell count, unspecified; Z79.4 Long term (current) use of insulin
CPT/HCPCS: 36415; 71046-TC-FY; 80048; 80053; 82550; 82962; 83735; 83880; 84100; 84484; 85025; 85610; 86850; 86900; 86901; 87804; 93005; 93010; 99285-25

== ENCOUNTER 2018-03-13 09:13 | Inpatient (IN) | payer OTHER, BC ==
[2018-03-13] MEDS ORDERED: ACETAMINOPHEN 1000 MG/100 ML VIAL (NON FORMULARY) IVPB ONE (09:39)
[2018-03-13 09:42] VITALS: BMI 29.7
[2018-03-13] MEDS ORDERED: ACETAMINOPHEN INJECTION 100 ML IVPB ONE (09:49)
[2018-03-13 09:55] LABS: VENOUS PC02 34.6 mmHg (38-52); VENOUS PH 7.48 (7.32-7.42)
[2018-03-13] MEDS ORDERED: DOXYCYCLINE INJECTION 100 MG in DEXTROSE 5%-WATER - 100 ML IVPB ONE (10:01)
[2018-03-13] MEDS ORDERED: CEFTRIAXONE 1,000 MG in DEXTROSE 5%-WATER - 50 ML IVPB ONE (10:02)
[2018-03-13 10:06] LABS: BASO % 0.9 % (0-2.0); EOS % 0.6 % (0-4.5); HEMATOCRIT 45.1 % (35.4-49); HEMOGLOBIN 15.3 GM/dL (11.7-16.9); LYMPH % 12.1 % (8-40); MCH 31.4 pg (25.7-33.7); MCHC 33.9 g/dl (32.0-35.9); MEAN CELL VOLUME 92.6 fl (80-96); MEAN PLT VOLUME 8.3 fl (7.5-11.1); MONO % 6.9 % (3.8-10.2); NEUT % 79.5 % (42.8-82.8); PLATELET COUNT 168 K/MM3 (134-434); RBC 4.87 M/mm3 (4.00-5.60); RDW 15.6 % (11.9-15.9); WHITE BLOOD COUNT 14.9 K/mm3 (4.0-10.0)
[2018-03-13] MEDS ORDERED: SODIUM CHLORIDE 0.9% 500 ML INFUS.BAG IV ONE (10:13)
--- NOTE | 2018-03-13 10:15 | PDOC ---
History of Present Illness - General History Source: Patient, EMS, Spouse Exam Limitations: No Limitations - History of Present Illness Initial Comments: 03/13/18 10:12 The patient is a 72M with a PMH of COPD, pulmonary fibrosis on 3L, CHF, IDDM, and CAD who presents to the ER with acute onset SOB. The patient states that he was in his normal state of health and overnight, felt an abrupt onset of cough, fevers, and shortness of breath, especially when lying flat. He denies a productive cough but admits he requires more oxygen than he normally does. He denies CP but admits to chills, cough, and SOB. <Norman Ceballos - Last Filed: 03/13/18 11:09> <Katelyn Cisse - Last Filed: 03/13/18 11:57> - General Chief Complaint: Shortness of Breath Stated Complaint: DIFFICULTY BREATHING Time Seen by Provider: 03/13/18 09:21 Past History - Past Medical History Anemia: No Asthma: No Cancer: No Cardiac Disorders: Yes ([place] 1991, CAD, PCI) CVA: No COPD: Yes CHF: No Dementia: No Diabetes: Yes GI Disorders: No Disorders: Yes (BPH) HTN: Yes Hypercholesterolemia: Yes Liver Disease: No Seizures: No Thyroid Disease: No - Surgical History Abdominal Surgery: Yes Appendectomy: Yes (1981) Cardiac Surgery: Yes (stents 2003) Cholecystectomy: No Lung Surgery: No Neurologic Surgery: No Orthopedic Surgery: Yes (rt knee 1995) - Immunization History Td Vaccination: Yes - Suicide/Smoking/Psychosocial Hx Smoking Status: No Smoking History: Unknown if ever smoked Have you smoked in the past 12 months: No Number of Cigarettes Smoked Daily: 0 If you are a former smoker, when did you quit?: 1989 Information on smoking cessation initiated: No Hx Alcohol Use: No Drug/Substance Use Hx: No Substance Use Type: None Hx Substance Use Treatment: No <Norman Ceballos - Last Filed: 03/13/18 11:09> <Katelyn Cisse - Last Filed: 03/13/18 11:57> - Past Medical History Allergies/Adverse Reactions: Allergies Allergy/AdvReac Type Severity Reaction Status Date / Time No Known Drug Allergies Allergy Verified 02/21/18 12:21 Home Medications: Ambulatory Orders Albuterol Sulfate [Proair Hfa] 2 inh IH TID 02/21/18 Allopurinol [Zyloprim -] 50 mg PO DAILY 02/21/18 Aspirin 81 mg PO DAILY 02/21/18 Cholecalciferol (Vitamin D3) [Vitamin D -] 2,000 unit PO DAILY 02/21/18 Dulaglutide [Trulicity] 1.5 mg SQ WEEKLY 02/21/18 Ezetimibe [Zetia -] 10 mg PO DAILY 02/21/18 Furosemide [Lasix -] 20 mg PO DAILY 02/21/18 Insulin (LOG) Aspart [NovoLOG -] 0 units SQ TID 02/21/18 Insulin (Levemir) [Levemir Vial] 0 unit SQ ASDIR 02/21/18 Lactobacillus Acidophilus [Acidophilus] 1 each PO DAILY 02/21/18 Losartan Potassium [Cozaar -] 25 mg PO DAILY 02/21/18 Metoprolol Succinate 50 mg PO HS 02/21/18 Nintedanib Esylate [Ofev] 150 mg PO BID 02/21/18 Pantoprazole Sodium [Protonix] 40 mg PO DAILY 02/21/18 Pitavastatin Calcium [Livalo] 4 mg PO DAILY 02/21/18 Ubidecarenone [Co Q-10] 200 mg PO DAILY 02/21/18 predniSONE [Deltasone -] 20 mg PO DAILY 02/21/18 Review of Systems - Review of Systems Able to Perform ROS?: Yes Comments:: 03/13/18 10:16 GENERAL/CONSTITUTIONAL: No fever or chills. No weakness. HEAD, EYES, EARS, NOSE AND THROAT: No change in vision. No ear pain or discharge. No sore throat. CARDIOVASCULAR: No chest pain, palpitations, or lightheadedness. RESPIRATORY: Positive for cough and SOB. No wheezing or hemoptysis. GASTROINTESTINAL: Positive for nausea and vomiting. No diarrhea, constipation, or abdominal pain. GENITOURINARY: No dysuria, frequency, hematuria, or change in urination. MUSCULOSKELETAL: No joint or muscle swelling or pain. No neck or back pain. SKIN: No rash or lesions. NEUROLOGIC: No headache, numbness, tingling, focal weakness, loss of consciousness, or change in strength/sensation. Is the patient limited Khmer proficient: No <Norman Ceballos - Last Filed: 03/13/18 11:09> *Physical Exam - Vital Signs Last Vital Signs Temp Pulse Resp BP Pulse Ox 102.3 F H 117 H 18 117/80 79 L 03/13/18 09:13 03/13/18 09:13 03/13/18 09:13 03/13/18 09:13 03/13/18 09:13 - Physical Exam Comments: 03/13/18 10:17 GENERAL: Well developed, well nourished. Awake and alert. In moderate distress. HEENT: Normocephalic, atraumatic. Hearing grossly normal. Moist mucous membranes. PERRLA, EOMI. No conjunctival pallor. Sclera are non-icteric. NECK: Supple. Full ROM. No JVD. CARDIOVASCULAR: Tachycardic with regular rhythm. No murmurs, rubs, or gallops. PULMONARY: Moderate respiratory distress. Decreased lung sounds in L lung field. ABDOMINAL: Soft. Non-tender. Non-distended. No rebound or guarding. MUSCULOSKELETAL: Normal range of motion at all joints. No bony deformities or tenderness. EXTREMITIES: No cyanosis. No clubbing. 3+ edema in b/l LE. No calf tenderness or swelling. SKIN: Warm and dry. Normal capillary refill. No rashes. No jaundice. NEUROLOGICAL: Alert, awake, appropriate. Cranial nerves 2-12 grossly intact. Normal speech. Gait is normal without ataxia. PSYCHIATRIC: Cooperative. Good eye contact. Appropriate mood and affect. <Norman Ceballos - Last Filed: 03/13/18 11:09> - Vital Signs Last Vital Signs Temp Pulse Resp BP Pulse Ox 102.3 F H 110 H 26 H 106/68 93 L 03/13/18 09:13 03/13/18 10:40 03/13/18 10:40 03/13/18 10:40 03/13/18 10:40 <Katelyn Cisse - Last Filed: 03/13/18 11:57> Moderate Sedation - Procedure Monitoring Vital Signs: Procedure Monitoring Vital Signs Temperature 102.3 F H 03/13/18 09:13 Pulse Rate 117 H 03/13/18 09:13 Respiratory Rate 18 03/13/18 09:13 Blood Pressure 117/80 03/13/18 09:13 O2 Sat by Pulse Oximetry (%) 79 L 03/13/18 09:13 <Norman Ceballos - Last Filed: 03/13/18 11:09> - Procedure Monitoring Vital Signs: Procedure Monitoring Vital Signs Temperature 102.3 F H 03/13/18 09:13 Pulse Rate 110 H 03/13/18 10:40 Respiratory Rate 26 H 03/13/18 10:40 Blood Pressure 106/68 03/13/18 10:40 O2 Sat by Pulse Oximetry (%) 93 L 03/13/18 10:40 <Katelyn Cisse - Last Filed: 03/13/18 11:57> Heart Score/ECG Review #1 ECG reviewed & interpreted by me at: 10:18 General ECG Interpretation: Sinus Rhythm Compared to previous ECG there are: No significant change 03/13/18 10:19 Sinus tach rate 120 MA 160 QRS 102 QTc 458 No STD or VERONICA No new acute ischemia T wave inversions in inferior leads unchanged <Norman Ceballos - Last Filed: 03/13/18 11:09> ED Treatment Course - LABORATORY CBC & Chemistry Diagram: 03/13/18 09:40 03/13/18 09:40 - ADDITIONAL ORDERS Additional order review: Laboratory Results 03/13/18 09:50 VBG pH 7.48 H POC VBG pCO2 34.6 L POC VBG pO2 54.0 H Mixed VBG HCO3 25.3 H - RADIOLOGY Radiology Studies Ordered: Category Date Time Status CHEST X-RAY PORTABLE* [RAD] Stat Radiology 03/13/18 09:21 Ordered - Medications Given in the ED: ED Medications Discontinued Medications Generic Name Dose Route Start Last Admin Trade Name Freq PRN Reason Stop Dose Admin Acetaminophen 1,000 mg 03/13/18 09:39 03/13/18 09:53 Ofirmev Injection - IVPB 03/13/18 09:40 1,000 mg ONCE ONE Administration <Norman Ceballos - Last Filed: 03/13/18 11:09> - LABORATORY CBC & Chemistry Diagram: 03/13/18 09:40 03/13/18 09:40 - ADDITIONAL ORDERS Additional order review: Laboratory Results 03/13/18 03/13/18 03/13/18 09:50 09:40 09:40 PT with INR INR VBG pH 7.48 H POC VBG pCO2 34.6 L POC VBG pO2 54.0 H Mixed VBG HCO3 25.3 H Sodium 142 Potassium 5.3 H Chloride 108 H Carbon Dioxide 25 Anion Gap 9 BUN 35 H Creatinine 1.7 H Creat Clearance w eGFR 40.04 Random Glucose 154 H Calcium 8.6 Magnesium 1.7 L Total Bilirubin 0.8 AST 75 H ALT 79 H Alkaline Phosphatase 65 Creatine Kinase 90 Troponin I 0.04 B-Natriuretic Peptide 5372.8 H Total Protein 5.7 L Albumin 2.7 L 03/13/18 09:30 PT with INR 12.40 INR 1.05 VBG pH POC VBG pCO2 POC VBG pO2 Mixed VBG HCO3 Sodium Potassium Chloride Carbon Dioxide Anion Gap BUN Creatinine Creat Clearance w eGFR Random Glucose Calcium Magnesium Total Bilirubin AST ALT Alkaline Phosphatase Creatine Kinase Troponin I B-Natriuretic Peptide Total Protein Albumin 03/13/18 09:40 RBC 4.87 MCV 92.6 MCHC 33.9 RDW 15.6 MPV 8.3 Neutrophils % 79.5 Lymphocytes % 12.1 D Monocytes % 6.9 Eosinophils % 0.6 Basophils % 0.9 - Medications Given in the ED: ED Medications Discontinued Medications Generic Name Dose Route Start Last Admin Trade Name Augustoq PRN Reason Stop Dose Admin Acetaminophen 1,000 mg 03/13/18 09:39 03/13/18 09:53 Ofirmev Injection - IVPB 03/13/18 09:40 1,000 mg ONCE ONE Administration Ceftriaxone Sodium 1,000 mg/ 50 mls @ 100 mls/hr 03/13/18 10:02 03/13/18 10: 36 Dextrose IVPB 03/13/18 10:31 100 mls/hr ONCE ONE Administration Oseltamivir Phosphate 75 mg 03/13/18 10:36 03/13/18 10:56 Tamiflu - PO 03/13/18 10:37 75 mg ONCE ONE Administration Sodium Chloride 500 ml 03/13/18 10:13 03/13/18 10:36 Normal Saline - IV 03/13/18 10:14 500 ml ONCE ONE Administration <Katelyn Cisse - Last Filed: 03/13/18 11:57> Medical Decision Making - Medical Decision Making 03/13/18 10:20 The patient is a 72M with MMP who presents to the ER with acute onset shortness of breath, fever, hypoxia, tachycardia concerning for sepsis 2/2 PNA, CHF exacerbation, ACS. Following troponins, EKG unchanged. Bedside US shows possible consolidations in L lung field and compressible IVC with inspiration. Pending CXR. Giving IV tylenol and slow fluid bolus. Pt on NRB and has hypoxia resolved. 03/13/18 11:[address] Mesa who wants to see the patient prior to admission. <Norman Ceballos - Last Filed: 03/13/18 11:09> *DC/Admit/Observation/Transfer - Discharge Dispostion Decision to Admit order: Yes <Norman Ceballos - Last Filed: 03/13/18 11:09> - Discharge Dispostion Decision to Admit order: Yes Decision to Admit order Date/Time: 03/13/18 11:57 <Katelyn Cisse - Last Filed: 03/13/18 11:57> Diagnosis at time of Disposition: Influenza A - Discharge Dispostion Condition at time of disposition: Guarded
[2018-03-13] MEDS ORDERED: DOXYCYCLINE HYCLATE 100 MG VIAL ONE (10:26)
[2018-03-13] MEDS ORDERED: CEFTRIAXONE 1 GM/50 ML BAG ONE (10:26)
[2018-03-13 10:33] LABS: INR 1.05 (0.83-1.09); PROTHROMBIN TIME (PATIENT) 12.4 SEC (9.7-13.0)
[2018-03-13] MEDS ORDERED: OSELTAMIVIR PHOSPHATE 75 MG CAPSULE PO ONE (10:36)
--- NOTE | 2018-03-13 10:39 | PDOC ---
Attending Attestation - Resident Resident Name: Norman Ceballos - ED Attending Attestation I have performed the following: I have examined & evaluated the patient, The case was reviewed & discussed with the resident, I agree w/resident's findings & plan - HPI HPI: 03/13/18 11:00 72 YOM with h/o ILD, COPD on 3L O2, CAD s/p PCI, CHF, CKD, IDDM, HTN, BPH, presenting with respiratory distress, with subjective fever chills and cough and malaise beginning last night. No sick contacts or travel. 03/13/18 11:04 - Physicial Exam PE: 03/13/18 11:05 moderate respiratory distress, speaking clear sentences. tachypneic PERRL, EOMI , nl conjunctiva, anicteric; no JVD, neck supple. lungs with bilateral crackles. tachy, no murmurs. abdomen soft nontender. GARCIA x4, no focal neuro deficits. 1+ pitting peripheral edema. normal color for ethnicity, WWP. - Medical Decision Making 03/13/18 10:38 See HPI for details DDx. influenza, CAP, viral syndrome, dehydration, electrolyte/metabolic derangements, ACS, angina, CHF, COPD, ILD flare. pleurisy, pleural effusion. Vital signs reviewed, wnl. +fever, tachy and hypoxia, on RA. placed on NRB, increased >95% laboratory results and imaging reviewed, , including admissions, discharges and consultations. basic labs and lytes notable for +leukocytosis; lytes and coags normal. VBG with mild respiratory alkalosis due to tachypnea/hyperventilation +influenza positive. CXR_CLD, interstitial lung findings. otherwise unremarkable. Cardiac panel_neg trop (reassuring), but elevated BNP - but can be from sepsis/ infection and nonspecific in setting of lung disease/history of coronary ischemia. EKG normal sinus rhythm, no interval abnormalities, narrow QRS, ST and T wave segments and morphology normal. Nonspecific T wave abnormalities with TWI in inferior leads, unchanged from prior. blood cx pending. lactic elevated 2.9 mildly, gentle fluids and recheck ED course: Bedside POCUS echo and thoracic exam with bilateral B lines likely interstitial fibrotic changes. no pleural or pericardial effusion. RV>LV, but has chronic pulmonary hypertension, doubt PE; more likely related to interstitial lung disease. with ultrasound findings, most likely influenza/infection and treating appropriately. unlikely fluid overloaded, as intravascularly deplete on IVC eval so judicious fluids and trend lactic CAP coverage with cef/doxy. tamiflu for influenza and medical comorbidities. tylenol for temperature. VS much improved, defervesced, clinically breathing more comfortably, after gentle fluids and abx/antipyretics and respiratory support. down titrated to venti mask, spO2 90-94% allowed with COPD/ILD history Dispo: admit to telemetry for influenza/superimposed CAP with comorbidities. 03/13/18 11:16 Heart Score/ECG Review - ECG Impressions Normal ECG: No Comment:: 03/13/18 11:14 EKG normal sinus rhythm, no interval abnormalities, narrow QRS, ST and T wave segments and morphology normal. Nonspecific T wave abnormalities with TWI in inferior leads, unchanged from prior. Procedures - Bedside Ultrasound Bedside Ultrasound: Cardiac Remarks: 03/13/18 11:00 POCUS echo and thoracic exam performed, indication includes dyspnea. views obtained (PSLA, PSS, A4, SX, IVC, bilateral lung styles). Findings include normal EF, no pericardial or pleural effusion, primarily B lines (most likely fibrotic lung changes), flat IVC with inspiratory collapse. RV>LV. Impression: hypovolemia; interstitial lung disease with B lines and dilated RV (likely chronic pulmonary hypertension) 03/13/18 11:20
[2018-03-13 10:43] LABS: ALBUMIN 2.7 g/dl (3.4-5.0); ALK PHOS 65 U/L (45-117); ANION GAP 9 MMOL/L (8-16); BILIRUBIN,TOTAL 0.8 mg/dL (0.2-1); BLOOD UREA NITROGEN 35 mg/dL (7-18); CALCIUM 8.6 mg/dL (8.5-10.1); CHLORIDE 108 mmol/L (98-107); CO2 25 mmol/L (21-32); CREATININE 1.7 mg/dL (0.55-1.3); GLUCOSE,RANDOM 154 mg/dL (74-106); MAGNESIUM 1.7 mg/dL (1.8-2.4); POTASSIUM 5.3 mmol/L (3.5-5.1); SGOT/AST 75 U/L (15-37); SGPT/ALT 79 U/L (13-61); SODIUM 142 mmol/L (136-145); TOT PROT 5.7 g/dl (6.4-8.2)
[2018-03-13] MEDS ORDERED: OSELTAMIVIR PHOSPHATE 75 MG CAPSULE ONE (10:50)
[2018-03-13] MEDS ORDERED: MAGNESIUM SULF 50% (8.12 MEQ/2 ML-1 GM VIAL) IVPB ONE (10:58)
[2018-03-13] MEDS ORDERED: MAGNESIUM 1GM/D5W - 2 GM/200 ML IVPB IVPB ONE (11:20)
[2018-03-13 11:42] LABS: URINE APPEARANCE CLEAR; URINE BILIRUBIN NEGATIVE (<2.0 mg/dL); URINE COLOR STRAW; URINE GLUCOSE (UA) NEGATIVE (NEGATIVE); URINE KETONE NEGATIVE (NEGATIVE); URINE LEUK ESTERASE NEGATIVE (NEGATIVE); URINE NITRITE NEGATIVE (NEGATIVE); URINE PROTEIN 1+ (NEGATIVE); URINE UROBILINOGEN NEGATIVE mg/dL (0.2-1.0)
--- NOTE | 2018-03-13 11:57 | EKG ---
Test Reason : Blood Pressure : / mmHG Vent. Rate : 116 BPM Atrial Rate : 116 BPM P-R Int : 160 ms QRS Dur : 102 ms QT Int : 330 ms P-R-T Axes : 030 042 008 degrees QTc Int : 458 ms SINUS TACHYCARDIA POSSIBLE LEFT ATRIAL ENLARGEMENT INFERIOR INFARCT (CITED ON OR BEFORE 18-OCT-1999) CANNOT RULE OUT ANTERIOR INFARCT , AGE UNDETERMINED ABNORMAL ECG WHEN COMPARED WITH ECG OF 21-FEB-2018 12:27, NO SIGNIFICANT CHANGE WAS FOUND Confirmed by EVER BECKER MD ([id number]) on 03/13/2018 11:57:40 AM Referred By: Confirmed By:EVER BECKER MD
[2018-03-13 12:04] LABS: URINE HYALINE CAST 4 /lpf
--- NOTE | 2018-03-13 12:37 | CONSULT ---
Consultation: REQUESTING PROVIDER: Dr. Ceballos CONSULT REQUEST: We have been asked to medically evaluate this patient for Shortness of breath. HISTORY OF PRESENT ILLNESS: Patient is a 72 year old male with a PMHx of Pulmonary fibrosis (Dx 3 years ago) , CAD, Cardiovascular: Yes: CAD, CHF, HTN, OR, Pulmonary Hypertension Pulmonary: Yes: COPD, O2 Dependent, Pulmonary Fibrosis, Sleep Apnea, Other (ILD) Renal/: Yes: Renal Inusuff, BPH, Hematuria Psych: Yes: Anxiety Endocrine: Yes: Diabetes Mellitus. No: Thierry's Disease REVIEW OF SYSTEMS: CONSTITUTIONAL: Absent: fever, chills, diaphoresis, generalized weakness, malaise, loss of appetite, weight change HEENT: Absent: rhinorrhea, nasal congestion, throat pain, throat swelling, difficulty swallowing, mouth swelling, ear pain, eye pain, visual changes CARDIOVASCULAR: Absent: chest pain, syncope, palpitations, irregular heart rate, lightheadedness , peripheral edema RESPIRATORY: Absent: cough, shortness of breath, dyspnea with exertion, orthopnea, wheezing, stridor, hemoptysis GASTROINTESTINAL: Absent: abdominal pain, abdominal distension, nausea, vomiting, diarrhea, constipation, melena, hematochezia GENITOURINARY: Absent: dysuria, frequency, urgency, hesitancy, hematuria, flank pain, genital pain MUSCULOSKELETAL: Absent: myalgia, arthralgia, joint swelling, back pain, neck pain SKIN: Absent: rash, itching, pallor HEMATOLOGIC/IMMUNOLOGIC: Absent: easy bleeding, easy bruising, lymphadenopathy, frequent infections ENDOCRINE: Absent: unexplained weight gain, unexplained weight loss, heat intolerance, cold intolerance NEUROLOGIC: Absent: headache, focal weakness or paresthesias, dizziness, unsteady gait, seizure, mental status changes, bladder or bowel incontinence PSYCHIATRIC: Absent: anxiety, depression, suicidal or homicidal ideation, hallucinations. PHYSICAL EXAMINATION Vital Signs - 24 hr 03/13/18 03/13/18 03/13/18 09:13 10:18 10:40 Temperature 102.3 F H Pulse Rate 117 H Pulse Rate [ 109 H 110 H Apical] Respiratory 18 26 H 26 H Rate Blood Pressure 117/80 Blood Pressure 106/68 [Right Arm] O2 Sat by Pulse 79 L 100 93 L Oximetry (%) 03/13/18 03/13/18 10:58 11:07 Temperature 99.7 F H 99 F Pulse Rate Pulse Rate [ 106 H 104 H Apical] Respiratory 25 H Rate Blood Pressure Blood Pressure 106/68 106/68 [Right Arm] O2 Sat by Pulse 93 L 93 L Oximetry (%) GENERAL: Awake, alert, and fully oriented, in no acute distress. HEAD: Normal with no signs of trauma. EYES: Pupils equal, round and reactive to light, extraocular movements intact, sclera anicteric, conjunctiva clear. No lid lag. EARS, NOSE, THROAT: Ears normal, nares patent, oropharynx clear without exudates. Moist mucous membranes. NECK: Normal range of motion, supple without lymphadenopathy, JVD, or masses. LUNGS: Breath sounds equal, clear to auscultation bilaterally. No wheezes, and no crackles. No accessory muscle use. HEART: Regular rate and rhythm, normal S1 and S2 without murmur, rub or gallop. ABDOMEN: Soft, nontender, not distended, normoactive bowel sounds, no guarding, no rebound, no masses. No hepatomegaly or splenomegaly. MUSCULOSKELETAL: Normal range of motion at all joints. No bony deformities or tenderness. No CVA tenderness. UPPER EXTREMITIES: 2+ pulses, warm, well-perfused. No cyanosis. No clubbing. Cap refill <2 seconds. No peripheral edema. LOWER EXTREMITIES: 2+ pulses, warm, well-perfused. No calf tenderness. No peripheral edema. NEUROLOGICAL: Cranial nerves II-XII intact. Normal speech. Normal gait. PSYCHIATRIC: Cooperative. Good eye contact. Appropriate mood and affect. SKIN: Warm, dry, normal turgor, no rashes or lesions noted. Laboratory Results - last 24 hr 03/13/18 03/13/18 03/13/18 09:30 09:32 09:40 WBC 14.9 H RBC 4.87 Hgb 15.3 Hct 45.1 MCV 92.6 MCH 31.4 MCHC 33.9 RDW 15.6 Plt Count 168 D MPV 8.3 Absolute Neuts (auto) 11.9 H Neutrophils % 79.5 Lymphocytes % 12.1 D Monocytes % 6.9 Eosinophils % 0.6 Basophils % 0.9 Nucleated RBC % 1 H PT with INR 12.40 INR 1.05 VBG pH POC VBG pCO2 POC VBG pO2 Mixed VBG HCO3 Sodium Potassium Chloride Carbon Dioxide Anion Gap BUN Creatinine Creat Clearance w eGFR Random Glucose Lactic Acid 2.9 H* Calcium Magnesium Total Bilirubin AST ALT Alkaline Phosphatase Creatine Kinase Troponin I B-Natriuretic Peptide Total Protein Albumin Urine Color Urine Appearance Urine pH Ur Specific [employer] Urine Protein Urine Glucose (UA) Urine Ketones Urine Blood Urine Nitrite Urine Bilirubin Urine Urobilinogen Ur Leukocyte Esterase Urine WBC (Auto) Urine RBC (Auto) Hyaline Casts Influenza A (Rapid) Influenza B (Rapid) 03/13/18 03/13/18 03/13/18 09:40 09:40 09:45 WBC RBC Hgb Hct MCV MCH MCHC RDW Plt Count MPV Absolute Neuts (auto) Neutrophils % Lymphocytes % Monocytes % Eosinophils % Basophils % Nucleated RBC % PT with INR INR VBG pH POC VBG pCO2 POC VBG pO2 Mixed VBG HCO3 Sodium 142 Potassium 5.3 H Chloride 108 H Carbon Dioxide 25 Anion Gap 9 BUN 35 H Creatinine 1.7 H Creat Clearance w eGFR 40.04 Random Glucose 154 H Lactic Acid Calcium 8.6 Magnesium 1.7 L Total Bilirubin 0.8 AST 75 H ALT 79 H Alkaline Phosphatase 65 Creatine Kinase 90 Troponin I 0.04 B-Natriuretic Peptide 5372.8 H Total Protein 5.7 L Albumin 2.7 L Urine Color Urine Appearance Urine pH Ur Specific [employer] Urine Protein Urine Glucose (UA) Urine Ketones Urine Blood Urine Nitrite Urine Bilirubin Urine Urobilinogen Ur Leukocyte Esterase Urine WBC (Auto) Urine RBC (Auto) Hyaline Casts Influenza A (Rapid) Positive A Influenza B (Rapid) Negative 03/13/18 03/13/18 03/13/18 09:50 11:27 11:30 WBC RBC Hgb Hct MCV MCH MCHC RDW Plt Count MPV Absolute Neuts (auto) Neutrophils % Lymphocytes % Monocytes % Eosinophils % Basophils % Nucleated RBC % PT with INR INR VBG pH 7.48 H POC VBG pCO2 34.6 L POC VBG pO2 54.0 H Mixed VBG HCO3 25.3 H Sodium Potassium Chloride Carbon Dioxide Anion Gap BUN Creatinine Creat Clearance w eGFR Random Glucose Lactic Acid 1.4 Calcium Magnesium Total Bilirubin AST ALT Alkaline Phosphatase Creatine Kinase Troponin I B-Natriuretic Peptide Total Protein Albumin Urine Color Straw Urine Appearance Clear Urine pH 5.0 Ur Specific [employer] 1.008 L Urine Protein 1+ H Urine Glucose (UA) Negative Urine Ketones Negative Urine Blood Negative Urine Nitrite Negative Urine Bilirubin Negative Urine Urobilinogen Negative Ur Leukocyte Esterase Negative Urine WBC (Auto) <1 Urine RBC (Auto) <1 Hyaline Casts 4 Influenza A (Rapid) Influenza B (Rapid) Active Medications Generic Name Dose Route Start Last Admin Trade Name Freq PRN Reason Stop Dose Admin Heparin Sodium (Porcine) 5,000 unit 03/13/18 18:00 Heparin - SQ Q8H-IV [place] Insulin Aspart 1 vial 03/13/18 16:30 Novolog Vial Sliding Scale - SQ ACHS [place] Protocol ASSESSMENT/PLAN: Dispo: We will continue to follow the patient. Thank you for this consultative opportunity.
--- NOTE | 2018-03-13 12:50 | HP ---
CHIEF COMPLAINT: Shortness of breath PCP: Dr. Garrido HISTORY OF PRESENT ILLNESS: Patient is a 72 year old male with a PMHx of Pulmonary fibrosis/ILD (Dx 3 years ago, currently on 3L 02), COPD, CAD s/p 3 stent placements, Systolic CHF, HTN, IDDMII, Anxiety, BPH, CKD, who presents today for severe shortness of breath. According to patient's , patient woke up from bed last night with worsening shortness of breath to the point he has to keep gasping for air. States his face turned trammell and was coughing continuously associated with chills and subjective fevers. Patient initially started experiencing some shortness of breath with worsening LE edema a couple of days prior and was told by his block hand to take 60mg of Lasix. However, when patient took the Lasix the shortness of breath worsened, which prompted this hospital visit. According to patients daughter, patient is noncompliant with Patient denies any sick contacts Patient denies recent travel Reports having flu shot and pneumonia shot this year Patient does admit to a 7-8 lb weight gain in the las 10 days Otherwise, patient denies any nausea, chest pain, palpitations, headaches, acute vision changes, urinary or bowel symptoms, abdominal pain, diarrhea, constipation. ER course was notable for: (1) Patient desaturating in the 80's with Tachypnea (2) CXR revealing intersitital lung disease with possible infiltrate (3) Influenza A positive Recent Travel: DENIES PAST MEDICAL HISTORY: Pulmonary fibrosis/ILD (Dx 3 years ago, currently on 2L 02 ), CAD s/p 3 stent placements, Systolic CHF, HTN, IDDMII, Anxiety, BPH, CKD PAST SURGICAL HISTORY: Appendectomy, Cataract Removal, CABG/STENT X3 in 2010 Social History: Smoking: Former smoker. Quit 30 years ago Alcohol: Denies Drugs: Denies Lives with . 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 Family History: Denies Allergies: No Known Drug Allergies Allergy (Verified 02/21/18 12:21) HOME MEDICATIONS: Home Medications Medication Instructions Recorded Albuterol Sulfate [Proair Hfa] 2 inh IH TID 02/21/18 Allopurinol [Zyloprim -] 50 mg PO DAILY 02/21/18 Aspirin 81 mg PO DAILY 02/21/18 Cholecalciferol (Vitamin D3) 2,000 unit PO DAILY 02/21/18 [Vitamin D -] Dulaglutide [Trulicity] 1.5 mg SQ WEEKLY 02/21/18 Ezetimibe [Zetia -] 10 mg PO DAILY 02/21/18 Furosemide [Lasix -] 20 mg PO DAILY 02/21/18 Insulin (LOG) Aspart [NovoLOG -] 0 units SQ TID 02/21/18 Insulin (Levemir) [Levemir Vial] 0 unit SQ ASDIR 02/21/18 Lactobacillus Acidophilus 1 each PO DAILY 02/21/18 [Acidophilus] Losartan Potassium [Cozaar -] 25 mg PO DAILY 02/21/18 Metoprolol Succinate 50 mg PO HS 02/21/18 Nintedanib Esylate [Ofev] 150 mg PO BID 02/21/18 Pantoprazole Sodium [Protonix] 40 mg PO DAILY 02/21/18 Pitavastatin Calcium [Livalo] 4 mg PO DAILY 02/21/18 Ubidecarenone [Co Q-10] 200 mg PO DAILY 02/21/18 predniSONE [Deltasone -] 20 mg PO DAILY 02/21/18 REVIEW OF SYSTEMS CONSTITUTIONAL: chills Absent: fever, diaphoresis, generalized weakness, malaise, loss of appetite, weight change HEENT: Absent: rhinorrhea, nasal congestion, throat pain, throat swelling, difficulty swallowing, mouth swelling, ear pain, eye pain, visual changes CARDIOVASCULAR: Absent: chest pain, syncope, palpitations, irregular heart rate, lightheadedness , peripheral edema RESPIRATORY: cough, shortness of breath, dyspnea with exertion, orthopnea, wheezing Absent: stridor, hemoptysis GASTROINTESTINAL: Absent: abdominal pain, abdominal distension, nausea, vomiting, diarrhea, constipation, melena, hematochezia GENITOURINARY: Absent: dysuria, frequency, urgency, hesitancy, hematuria, flank pain, genital pain MUSCULOSKELETAL: Absent: myalgia, arthralgia, joint swelling, back pain, neck pain SKIN: Absent: rash, itching, pallor HEMATOLOGIC/IMMUNOLOGIC: Absent: easy bleeding, easy bruising, lymphadenopathy, frequent infections ENDOCRINE: Absent: unexplained weight gain, unexplained weight loss, heat intolerance, cold intolerance NEUROLOGIC: Absent: headache, focal weakness or paresthesias, dizziness, unsteady gait, seizure, mental status changes, bladder or bowel incontinence PSYCHIATRIC: Absent: anxiety, depression, suicidal or homicidal ideation, hallucinations. PHYSICAL EXAMINATION Vital Signs - 24 hr 03/13/18 03/13/18 03/13/18 09:13 10:18 10:40 Temperature 102.3 F H Pulse Rate 117 H Pulse Rate [ 109 H 110 H Apical] Respiratory 18 26 H 26 H Rate Blood Pressure 117/80 Blood Pressure 106/68 [Right Arm] O2 Sat by Pulse 79 L 100 93 L Oximetry (%) 03/13/18 03/13/18 10:58 11:07 Temperature 99.7 F H 99 F Pulse Rate Pulse Rate [ 106 H 104 H Apical] Respiratory 25 H Rate Blood Pressure Blood Pressure 106/68 106/68 [Right Arm] O2 Sat by Pulse 93 L 93 L Oximetry (%) GENERAL: Awake, alert, and fully oriented, in mild respiratory distress HEAD: Normal with no signs of trauma. EYES: Pupils equal, round and reactive to light, extraocular movements intact, sclera anicteric, Left eye conjunctivitis. EARS, NOSE, THROAT: Oropharynx clear without exudates. Moist mucous membranes. NECK: Normal range of motion, supple without lymphadenopathy, JVD, or masses. LUNGS: Crackles throughout lung bases bilaterally with some expiratory wheezing. On venti mask, tachypnic and in mild respiratory distress. HEART: Tachycardic with regular rhythm, normal S1 and S2 without murmur, rub or gallop. ABDOMEN: Soft, nontender, not distended, normoactive bowel sounds, no guarding, no rebound, no masses. No hepatomegaly or splenomegaly. MUSCULOSKELETAL: No CVA tenderness. UPPER EXTREMITIES: No peripheral edema. LOWER EXTREMITIES: 1+ pitting edema NEUROLOGICAL: Cranial nerves II-XII intact. Normal speech. No focal deficits PSYCHIATRIC: Cooperative. Good eye contact. Appropriate mood and affect. SKIN: Warm, dry, normal turgor, no rashes or lesions noted, normal capillary refill. Laboratory Results 03/13/18 09:40 03/13/18 09:40 03/13/18 03/13/18 03/13/18 09:40 09:40 09:45 AST 75 H ALT 79 H B-Natriuretic Peptide 5372.8 H Total Protein 5.7 L Albumin 2.7 L Influenza A (Rapid) Positive A ASSESSMENT/PLAN: Patient is a 72 year old male who presented with worsening shortness of breath and was found to be influenza A positive with possible Pneumonia. Patient admitted to telemetry for further monitoring and management. Acute Hypoxic Respiratory Failure -Likely secondary to acute CHF ans COPD exac from superimposed influenzaa and possible PNA -Found saturating in the 60's on the field -Given venti mask and saturating in the mid 90's -Will need to monitor 02 -Duo-nebs standing and PRN -IV medrol 60mg q8h -Emperic Abx coverage with Vancomcin , azithromycin and Zosyn -DuoNeb QID -O2 to keep SpO2 >90% -Chest CT pending and if no infiltrate or consolidation, will d/c abx -Urine antigens pending -Sputum and blood cultures pending Influenza A Positive -Flu swab positive -Will continue Tamiflu 30mg PO BID Pulmonary Fibrosis/ILD -Followed by Dr. Varela at [place] -Was taking Ofev but was discontinued 2 weeks ago and now on Chronic Prednisone -On chronic 02 but is noncompliant according to daughter -Chest CT pending Acute on Chronic CHF -ECHO Pending -Patient was getting 60mg Lasix PO recently increased due to LE edema by his block hand -Repeat BNP today -Will likely start IV Lasix. Will start off with 20mg IVP -Continue Metoprolol -Will hold Losartan for now due to TAZ -Daily weights -Strict I&O's Acute on Chronic COPD Exacerbation -Nebulizers -IV medrol -Emperic Antibiotics -O2 to keep SpO2 >90% Leukocytosis -Likely from chronic prednisone use HyperKalemia -Likely secondary to TAZ -Given albuterol SHANTI -On CPAP at night. Will resume CAD s/p Stents -Continue ASA TAZ on CKD -Likely from increased Lasix -Will hold Losartan -Renally dose medications -Continue to monitor IDDMII -BGM -ISS -Lantus 32 units HS HTN -Continue Metoprolol -Hold Losartan -Monitor BP HLD -Continue Zetia and Atorvastatin GERD -Continue Protonix 40mg PO daily F/E/N -On no fluids -Hyperkalemia -Diabetic/Sodium controlled diet Prophylaxis -Heparin sq TID for DVT -Protonix for GI Disposition -Full code. HCP is his daughter Courtney -Chest CT pending. Still slightly short of breath. Tele monitoring Visit type - Emergency Visit Emergency Visit: Yes ED Registration Date: 03/13/18 Care time: The patient presented to the Emergency Department on the above date and was hospitalized for further evaluation of their emergent condition. - New Patient This patient is new to me today: No - Critical Care Critical Care patient: No
[2018-03-13] MEDS ORDERED: ALBUTEROL SO4 2.5/IPRATROPIUM 0.5 INH SOL 3 ML VIAL.NEB. NEB PRN (13:09)
[2018-03-13] MEDS ORDERED: INSULIN (LEVEMIR) 100 UNITS/ML UNITS SQ SCH ×2 (13:15→22:00)
--- NOTE | 2018-03-13 13:25 | CON.PULM ---
Consult Consult Specialty:: PULMONARY Referred by:: Dr. Mesa Reason for Consultation:: shortness of breath - History of Present Illness Chief Complaint: shortness of breath History of Present Illness: 72yo male with h/o HTN, DM, CKD, CAD s/p stents, LV systolic dysfunction, interstitial lung disease followed on [facility] on chronic prednisone, chronic hypoxic respiratory failure on home O2 who was admitted with worsening shortness of breath since this AM. Denies chest pain or palpitations. No fevers but with chills. Mother in law sick at home. +nonproductive cough and some wheezing. CXR with chronic interstitial changes. Influenza A positive on serology. - History Source History Provided By: Patient, Medical Record Limitations to Obtaining History: No Limitations - Past Medical History Cardio/Vascular: Yes: CAD, CHF, HTN, [place], Pulmonary Hypertension Pulmonary: Yes: COPD, O2 Dependent, Pulmonary Fibrosis, Sleep Apnea, Other (ILD) Renal/: Yes: Renal Inusuff, BPH, Hematuria Psych: Yes: Anxiety Endocrine: Yes: Diabetes Mellitus. No: Thierry's Disease - Past Surgical History Past Surgical History: Yes: Appendectomy, Cataract Removal (coronary artery stent by history. 2010 3 stents placed), Stent - Alcohol/Substance Use Hx Alcohol Use: No History of Substance Use: reports: None - Smoking History Smoking history: Unknown if ever smoked Have you smoked in the past 12 months: No Aproximately how many cigarettes per day: 0 If you are a former smoker, when did you quit?: 1989 - Social History ADL: Independent Occupation: retired secondary to disability History of Recent Travel: No Home Medications - Allergies Allergies/Adverse Reactions: Allergies Allergy/AdvReac Type Severity Reaction Status Date / Time No Known Drug Allergies Allergy Verified 02/21/18 12:21 - Home Medications Home Medications: Ambulatory Orders Albuterol Sulfate [Proair Hfa] 2 inh IH TID 02/21/18 Allopurinol [Zyloprim -] 50 mg PO DAILY 02/21/18 Aspirin 81 mg PO DAILY 02/21/18 Cholecalciferol (Vitamin D3) [Vitamin D -] 2,000 unit PO DAILY 02/21/18 Dulaglutide [Trulicity] 1.5 mg SQ WEEKLY 02/21/18 Ezetimibe [Zetia -] 10 mg PO DAILY 02/21/18 Furosemide [Lasix -] 40 mg PO DAILY 02/21/18 Insulin (Levemir) [Levemir Vial] 32 unit SQ ASDIR 02/21/18 Lactobacillus Acidophilus [Acidophilus] 1 each PO DAILY 02/21/18 Losartan Potassium [Cozaar -] 25 mg PO DAILY 02/21/18 Metoprolol Succinate 50 mg PO HS 02/21/18 Nintedanib Esylate [Ofev] 150 mg PO BID 02/21/18 Pantoprazole Sodium [Protonix] 40 mg PO DAILY 02/21/18 Pitavastatin Calcium [Livalo] 4 mg PO DAILY 02/21/18 Ubidecarenone [Co Q-10] 200 mg PO DAILY 02/21/18 predniSONE [Deltasone -] 20 mg PO DAILY 02/21/18 Family Disease History - Family Disease History Family Disease History: Diabetes: Father, Brother, Heart Disease: Father, Other : Mother (dementia) Review of Systems - Review of Systems Constitutional: reports: Chills, Malaise, Weakness. denies: Fever Eyes: denies: Recent Change in Vision HENT: denies: Nasal Congestion, Throat Pain Neck: denies: Stiffness, Tenderness Cardiovascular: reports: Edema, Shortness of Breath. denies: Chest Pain, Palpitations Respiratory: reports: Cough, Exercise Intolerance, SOB on Exertion, Wheezing. denies: Hemoptysis Gastrointestinal: denies: Abdominal Pain, Nausea, Vomiting Genitourinary: denies: Dysuria, Hematuria Neurological: denies: Dizziness, Headache Endocrine: denies: Unexplained Weight Loss Physical Exam Vital Sings: Vital Signs Temperature 99 F 03/13/18 11:07 Pulse Rate 104 H 03/13/18 11:07 Respiratory Rate 25 H 03/13/18 10:58 Blood Pressure 106/68 03/13/18 11:07 O2 Sat by Pulse Oximetry (%) 93 L 03/13/18 11:07 Constitutional: Yes: Anxious, Mild Distress Eyes: Yes: Conjunctiva Clear, EOM Intact HENT: Yes: Atraumatic, Normocephalic Neck: Yes: Supple, Trachea Midline Cardiovascular: Yes: Regular Rate and Rhythm Respiratory: Yes: Rales (bibasilar) ...Clubbing: No Gastrointestinal: Yes: Normal Bowel Sounds, Soft. No: Tenderness Edema: Yes Neurological: Yes: Alert, Oriented Labs: CBC, BMP 03/13/18 09:40 03/13/18 09:40 Imaging - Results Chest X-ray: Report Reviewed, Image Reviewed (bilateral interstitial changes, unchanged) Problem List - Problems (1) Acute and chronic respiratory failure with hypoxia Code(s): J96.21 - ACUTE AND CHRONIC RESPIRATORY FAILURE WITH HYPOXIA (2) Influenza A Code(s): J10.1 - FLU DUE TO OTH IDENT INFLUENZA VIRUS W OTH RESP MANIFEST (3) Sepsis Code(s): A41.9 - SEPSIS, UNSPECIFIED ORGANISM (4) Lactic acidosis Code(s): E87.2 - ACIDOSIS (5) [place]-uw-jvrdukw kidney injury Code(s): N17.9 - ACUTE KIDNEY FAILURE, UNSPECIFIED; N18.9 - CHRONIC KIDNEY DISEASE, UNSPECIFIED Qualifiers: Acute renal failure type: unspecified Chronic kidney disease stage: unspecified stage Qualified Code(s): N17.9 - Acute kidney failure, unspecified ; N18.9 - Chronic kidney disease, unspecified; N18.9 - Chronic kidney disease, unspecified (6) CAD (coronary artery disease) Code(s): I25.10 - ATHSCL HEART DISEASE OF [place] CORONARY ARTERY W/O ANG PCTRS Qualifiers: [place] vs. 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 Diabetes mellitus complication status: with kidney complications Diabetes mellitus complication detail: with chronic kidney disease Chronic kidney disease stage: stage 3 (moderate) Qualified Code(s): E11.22 - Type 2 diabetes mellitus with diabetic chronic kidney disease; N18.3 - Chronic kidney disease, stage 3 (moderate); Z79.4 - FPC (current) use of insulin (9) HTN (hypertension) Code(s): I10 - ESSENTIAL (PRIMARY) HYPERTENSION Qualifiers: Hypertension type: essential hypertension Qualified Code(s): I10 - Essential (primary) hypertension (10) Pulmonary fibrosis Code(s): J84.10 - PULMONARY FIBROSIS, UNSPECIFIED (11) Sleep apnea Code(s): G47.30 - SLEEP APNEA, UNSPECIFIED Assessment/Plan Acute on Chronic Hypoxic Respiratory Failure Influenza A Sepsis r/o Pneumonia Acute on Chronic Renal Failure Lactic Acidosis Interstitial Lung Disease COPD CAD LV Systolic Dysfunction HTN DM SHANTI - continue tamiflu - would start empiric antibiotics to cover healthcare acquired organisms as pt on chronic steroids - f/u cultures - agree with CT chest - can d/c antibiotics if no acute infiltrate seen on CT - IV medrol - inhaled bronchodilators - O2 to keep SpO2 >90% - BiPAP as needed - monitor urine output, creatinine - glucose control while on systemic steroids - DVT prophylaxis Thank you for this consult Robert Downey MD
[2018-03-13] MEDS ORDERED: ALBUTEROL SO4 0.083% IH SOL 2.5 MG/3 ML VIAL.NEB. NEB PRN (13:34)
[2018-03-13] MEDS ORDERED: AZITHROMYCIN IVPB 500 MG in DEXTROSE 5%-WATER - 250 ML IVPB SCH (13:45)
--- NOTE | 2018-03-13 14:09 | PN ---
Teaching Attending Note Name of Resident: Estefania Urena ATTENDING PHYSICIAN STATEMENT I saw and evaluated the patient. I reviewed the resident's note and discussed the case with the resident. I agree with the resident's findings and plan as documented with exceptions below. SUBJECTIVE: 72 yom with PMhx of COPD, Steroid/oxygen (3L) dependent Pulmonary fibrosis/ILD , SHANTI on CPAP at night, Pulmonary HTN, CKD stage II, LV systolic dysfunction, prior admissions for CHF, CAD s/p MT, 2Stents , T2DM on Insulin, Hypercholesterolemia, woke up last night with sudden shortness of breath with cough, inability to breath and subjective fevers, prompting him to come to the ED. Patient reports his prednisone has been tapered to 15 mg from 20 mg 2 weeks ago and taken off one of the inhalers, since when his shortness of breath and cough have been a little worse. Also reports weight gain about 7 lbs with worsening leg swelling over the last 1-2 weeks, his lasix was increased from 40 mg to 60 mg. Has chronic PND, that has not changed recently. NO known sick contacts or recent antibiotics. Was last admitted to [facility] in 01/2018 with CHF exacerbation when his lasix was increased to 40 mg on d/c. Denies any anorexia or poor po intake, rather reports has been eating more. 12 point ROS done, chronic exertional dyspnea, has been minimally ambulatory last few months. Per family, not compliant with his home oxygen. In ED, was noted with pos for Influenza A. Was attempted on bipap, but vomited x1, so transitioned to NRB, clinically improved now on venti mask. S/p 500 ml IVF bolus x 1, ceftriaxone/Doxcycline/Tamiflu. OBJECTIVE: Vital Signs Period Temp Pulse Resp BP Sys/Meraz Pulse Ox Last 24 Hr 97.8 F-102.3 F 97-117 18-26 106-124/68-80 79-100 Intake & Output 03/10/18 03/11/18 03/12/18 03/13/18 23:59 23:59 23:59 23:59 Weight 190 lb GENERAL: Awake, alert, and fully oriented, tachypneic, some use of accessory muscles of respiration, but able to speak in full sentences HEAD: Normal with no signs of trauma. EYES: Pupils equal, round and reactive to light, extraocular movements intact, sclera anicteric, conjunctiva clear. No lid lag. EARS, NOSE, THROAT: Ears normal, nares patent, oropharynx clear without exudates. Moist mucous membranes. NECK: soft, supple, JVD visualization difficult LUNGS: bibasilar fine rales, good air entry, scattered wheezing HEART: S1S2 regular, tachycardic ABDOMEN: Soft, nontender, not distended, normoactive bowel sounds, no guarding, no rebound, no masses. MUSCULOSKELETAL: Normal range of motion at all joints. No bony deformities or tenderness. No CVA tenderness. UPPER EXTREMITIES: 2+ pulses, warm, well-perfused. No cyanosis. No clubbing. No peripheral edema. LOWER EXTREMITIES: 2+ left pedal pitting edema, 1+ pedal pitting edema (chronic asymmetric pedal edema L>R per patient) worsened currently per patient, no calf tenderness NEUROLOGICAL: AAOx3,facial symmetry, tongue midline, EOMI, power 5/5, grossly intact and symmetric sensation to light touch, gait not observed PSYCHIATRIC: Cooperative. Good eye contact. Appropriate mood and affect. SKIN: Warm, dry, normal turgor, no rashes or lesions noted, normal capillary refill. Home Medications Medication Instructions Recorded Albuterol Sulfate [Proair Hfa] 2 inh IH TID 02/21/18 Allopurinol [Zyloprim -] 50 mg PO DAILY 02/21/18 Aspirin 81 mg PO DAILY 02/21/18 Cholecalciferol (Vitamin D3) 2,000 unit PO DAILY 02/21/18 [Vitamin D -] Dulaglutide [Trulicity] 1.5 mg SQ WEEKLY 02/21/18 Ezetimibe [Zetia -] 10 mg PO DAILY 02/21/18 Furosemide [Lasix -] 40 mg PO DAILY 02/21/18 Insulin (Levemir) [Levemir Vial] 32 unit SQ ASDIR 02/21/18 Lactobacillus Acidophilus 1 each PO DAILY 02/21/18 [Acidophilus] Losartan Potassium [Cozaar -] 25 mg PO DAILY 02/21/18 Metoprolol Succinate 50 mg PO HS 02/21/18 Pantoprazole Sodium [Protonix] 40 mg PO DAILY 02/21/18 Pitavastatin Calcium [Livalo] 4 mg PO DAILY 02/21/18 Ubidecarenone [Co Q-10] 200 mg PO DAILY 02/21/18 predniSONE [Deltasone -] 20 mg PO DAILY 02/21/18 Active Medications Albuterol Sulfate (Ventolin 0.083% Nebulizer Soln -) 1 amp NEB Q4H PRN PRN Reason: SHORT OF BREATH/WHEEZING Albuterol/Ipratropium (Duoneb -) 1 amp NEB RQID [place] Aspirin (Asa -) 81 mg PO DAILY [facility] Atorvastatin Calcium (Lipitor -) 20 mg PO HS [facility] Ezetimibe (Zetia -) 10 mg PO DAILY [facility] Heparin Sodium (Porcine) (Heparin -) 5,000 unit SQ Q8H-IV [facility] Piperacillin Sod/Tazobactam (Sod 3.375 gm/ Dextrose) 50 mls @ 100 mls/hr IVPB Q8H-IV [place]; Protocol Azithromycin 500 mg/ Dextrose 250 mls @ 250 mls/hr IVPB DAILY [facility] Insulin Aspart (Novolog Vial Sliding Scale -) 1 vial SQ ACHS [place]; Protocol Insulin Detemir (Levemir Vial) 32 units SQ HS [facility] Methylprednisolone Sodium Succinate (Solu-Medrol -) 60 mg IVPUSH Q8H-IV [facility] Metoprolol Succinate (Toprol Xl -) 50 mg PO HS [facility] Oseltamivir Phosphate (Tamiflu -) 30 mg PO BID [facility] Stop: 03/19/18 09:59 Pantoprazole Sodium (Protonix -) 40 mg PO DAILY [facility] Laboratory Results - last 24 hr 03/13/18 03/13/18 03/13/18 09:30 09:32 09:40 WBC 14.9 H RBC 4.87 Hgb 15.3 Hct 45.1 MCV 92.6 MCH 31.4 MCHC 33.9 RDW 15.6 Plt Count 168 D MPV 8.3 Absolute Neuts (auto) 11.9 H Neutrophils % 79.5 Lymphocytes % 12.1 D Monocytes % 6.9 Eosinophils % 0.6 Basophils % 0.9 Nucleated RBC % 1 H PT with INR 12.40 INR 1.05 VBG pH POC VBG pCO2 POC VBG pO2 Mixed VBG HCO3 Sodium Potassium Chloride Carbon Dioxide Anion Gap BUN Creatinine Creat Clearance w eGFR Random Glucose Lactic Acid 2.9 H* Calcium Magnesium Total Bilirubin AST ALT Alkaline Phosphatase Creatine Kinase Troponin I B-Natriuretic Peptide Total Protein Albumin Urine Color Urine Appearance Urine pH Ur Specific [place] Urine Protein Urine Glucose (UA) Urine Ketones Urine Blood Urine Nitrite Urine Bilirubin Urine Urobilinogen Ur Leukocyte Esterase Urine WBC (Auto) Urine RBC (Auto) Hyaline Casts Influenza A (Rapid) Influenza B (Rapid) 03/13/18 03/13/18 03/13/18 09:40 09:40 09:45 WBC RBC Hgb Hct MCV MCH MCHC RDW Plt Count MPV Absolute Neuts (auto) Neutrophils % Lymphocytes % Monocytes % Eosinophils % Basophils % Nucleated RBC % PT with INR INR VBG pH POC VBG pCO2 POC VBG pO2 Mixed VBG HCO3 Sodium 142 Potassium 5.3 H Chloride 108 H Carbon Dioxide 25 Anion Gap 9 BUN 35 H Creatinine 1.7 H Creat Clearance w eGFR 40.04 Random Glucose 154 H Lactic Acid Calcium 8.6 Magnesium 1.7 L Total Bilirubin 0.8 AST 75 H ALT 79 H Alkaline Phosphatase 65 Creatine Kinase 90 Troponin I 0.04 B-Natriuretic Peptide 5372.8 H Total Protein 5.7 L Albumin 2.7 L Urine Color Urine Appearance Urine pH Ur Specific [place] Urine Protein Urine Glucose (UA) Urine Ketones Urine Blood Urine Nitrite Urine Bilirubin Urine Urobilinogen Ur Leukocyte Esterase Urine WBC (Auto) Urine RBC (Auto) Hyaline Casts Influenza A (Rapid) Positive A Influenza B (Rapid) Negative 03/13/18 03/13/18 03/13/18 09:50 11:27 11:30 WBC RBC Hgb Hct MCV MCH MCHC RDW Plt Count MPV Absolute Neuts (auto) Neutrophils % Lymphocytes % Monocytes % Eosinophils % Basophils % Nucleated RBC % PT with INR INR VBG pH 7.48 H POC VBG pCO2 34.6 L POC VBG pO2 54.0 H Mixed VBG HCO3 25.3 H Sodium Potassium Chloride Carbon Dioxide Anion Gap BUN Creatinine Creat Clearance w eGFR Random Glucose Lactic Acid 1.4 Calcium Magnesium Total Bilirubin AST ALT Alkaline Phosphatase Creatine Kinase Troponin I B-Natriuretic Peptide Total Protein Albumin Urine Color Straw Urine Appearance Clear Urine pH 5.0 Ur Specific [place] 1.008 L Urine Protein 1+ H Urine Glucose (UA) Negative Urine Ketones Negative Urine Blood Negative Urine Nitrite Negative Urine Bilirubin Negative Urine Urobilinogen Negative Ur Leukocyte Esterase Negative Urine WBC (Auto) <1 Urine RBC (Auto) <1 Hyaline Casts 4 Influenza A (Rapid) Influenza B (Rapid) CXR images and results reviewed EKG: sinus tachycardia, Q in II, III, avf ASSESSMENT AND PLAN: 72 yom with PMhx of COPD, Steroid/oxygen (3L) dependent Pulmonary fibrosis/ILD , SHANTI on CPAP at night, Pulmonary HTN, CKD stage II, LV systolic dysfunction, prior admissions for CHF, CAD s/p MT, 2Stents , T2DM on Insulin, Hypercholesterolemia admitted with acute on chronic hypoxic respiratory failure , Acute influenza A illness. -Acute on chronic hypoxic respiratory failure -Acute Influenza A illness -Sepsis -r/o secondary PNA given immunocompromised state -Acute COPD exacerbation -Acute on chronic heart failure exacerbation, ?systolic -TAZ on CKD stage II, suspect from above -Hyperkalemia -Lactic acidosis, suspect from work of breathing+/- sepsis -Steroid/Oxygen dependent Pulmonary Fibrosis -SHANTI on CPAP at night -CAD s/p PCI -LV systolic dysfunction -IDDM Plan: Clinically improved. Tamiflu. Zosyn/azithromycin x [address] chest, d/c additional abx if no infiltrate on imaging. IV solumedrol,standing and prn nebs. Pulmonary input appreciated. ID input if PNA concerns on imaging. 2D echo. s/p lasix 60 mg PO this AM s/p IVF bolus in Ed. Additional IV diuresis today based on clinical course and renal function. Hold ARB, repeat BMP today. Levemir 32 units hs, ISS, diabetic diet. ASA/statin/metoprolol. LE duplex DVTPPX heparin Code status: full code (discussed with patient, witnessed by daughter) Dispo pending clinical improvement. Plan discussed with patient and daughter at bedside in detail, all questions answered. Care co-ordinated with pulmonary. total admit time 65 min.
[2018-03-13] MEDS ORDERED: DEXTROSE 5%-WATER - 50 ML IVPB ONE ×2 (14:12→16:59)
[2018-03-13] MEDS ORDERED: PIPERACILLIN/TAZOBACTAM 3.375 GM VIAL IVPB ONE ×2 (14:12→16:59)
[2018-03-13] MEDS: methylPREDNISolone NA SUCC 40 MG/1 ML VIAL IVPUSH SCH ×2 (14:52→17:17)
[2018-03-13] MEDS: PIPERACILLIN/TAZOB 3.375 GM 3.375 GM in DEXTROSE 5%-WATER - 50 ML IVPB SCH ×2 (14:55→17:17)
--- NOTE | 2018-03-13 16:15 | ECHO ---
Name: FACUNDO MCFARLANE Exam:Adult Echocardiogram Study Date: 03/13/2018 01:32 PM Age: 72 yrs Reason For Study: SOB Height: 67 in Weight: 190 lb BSA: 2.0 m2 MMode/2D Measurements & Calculations RVDd: 3.7 cm Ao root diam: 3.3 cm IVSd: 1.2 cm LA dimension: 3.5 cm LVIDd: 4.2 cm ACS: 2.1 cm LVIDs: 3.2 cm LVPWd: 1.1 cm IVSs: 1.3 cm LVPWs: 1.3 cm EDV(Teich): 78.6 ml ESV(Teich): 41.3 ml Doppler Measurements & Calculations Ao V2 max: 105.9 cm/sec TR max wes: 345.3 cm/sec Ao max P.5 mmHg TR max P.8 mmHg Ao V2 mean: 73.8 cm/sec Ao mean P.6 mmHg Ao V2 VTI: 18.2 cm PI end-d wes: 184.6 cm/sec Med Peak E' Wes: 4.8 cm/sec Lat Peak E' Wes: 6.8 cm/sec Procedure A complete two-dimensional transthoracic echocardiogram was performed (2D, M-mode, Doppler and color flow Doppler). Left Ventricle The left ventricular size, thickness and function are normal. The left ventricular ejection fraction is normal. Ejection Fraction = 55-60%. The left ventricular wall motion is normal. Right Ventricle The right ventricle is mildly dilated. The right ventricular systolic function is mildly reduced. Atria Normal left and right atrial size and function. Mitral Valve There is no mitral regurgitation noted. Tricuspid Valve There is moderate tricuspid regurgitation. Right ventricular systolic pressure is elevated at 40-50mm Hg. Aortic Valve The aortic valve is trileaflet. No hemodynamically significant valvular aortic stenosis. No aortic regurgitation is present. Pulmonic Valve There is no pulmonic valvular regurgitation. Great Vessels The aortic root is normal size. Pericardium/Pleura There is no pericardial effusion. Interpretation Summary The left ventricular size, thickness and function are normal The right ventricle is mildly dilated. The right ventricular systolic function is mildly reduced. There is moderate tricuspid regurgitation. Right ventricular systolic pressure is elevated at 40-50mmHg. MD Elfego Shi 03/13/2018 04:14 PM
[2018-03-13] MEDS: ALBUTEROL SO4 2.5/IPRATROPIUM 0.5 INH SOL 3 ML VIAL.NEB. NEB SCH ×2 (16:38→20:35)
[2018-03-13] MEDS: HEPARIN NA (PORCINE) 5,000 UNITS/ML 1ML VIAL SQ SCH (17:17)
[2018-03-13] MEDS: INSULIN SLIDING SCALE (NOVOLOG) 1 VIAL SQ SCH ×2 (17:18→21:34)
[2018-03-13] MEDS ORDERED: INSULIN (NOVOLOG) ASPART 100 UNITS/ML 10ML VIAL SQ ONE (18:45)
[2018-03-13 19:31] LABS: ANION GAP 11 MMOL/L (8-16); BLOOD UREA NITROGEN 36 mg/dL (7-18); CALCIUM 7.9 mg/dL (8.5-10.1); CHLORIDE 101 mmol/L (98-107); CO2 24 mmol/L (21-32); CREATININE 2.3 mg/dL (0.55-1.3); POTASSIUM 5.7 mmol/L (3.5-5.1); SODIUM 136 mmol/L (136-145)
[2018-03-13 19:34] LABS: GLUCOSE,RANDOM 544 mg/dL (74-106)
[2018-03-13] MEDS ORDERED: DEXTROSE 50%-WATER - 25 GM/50 ML VIAL IVPUSH ONE (19:46)
[2018-03-13] MEDS ORDERED: ALBUTEROL SO4 0.083% IH SOL 2.5 MG/3 ML VIAL.NEB. NEB ONE (20:00)
[2018-03-13] MEDS ORDERED: INSULIN REGULAR HUMAN 100 UNITS/ML *VIAL IVPUSH ONE (20:00)
[2018-03-13] MEDS: ATORVASTATIN CA 20 MG TABLET (FP) PO SCH (21:35)
[2018-03-13] MEDS ORDERED: NINTEDANIB ESYLATE 150 MG PO SCH (22:00)
[2018-03-14] MEDS ORDERED: INSULIN (NOVOLOG) ASPART 100 UNITS/ML 10ML VIAL SQ ONE ×3 (00:18→12:55)
[2018-03-14 01:38] LABS: ANION GAP 9 MMOL/L (8-16); BLOOD UREA NITROGEN 41 mg/dL (7-18); CHLORIDE 100 mmol/L (98-107); CO2 24 mmol/L (21-32); CREATININE 2.3 mg/dL (0.55-1.3); POTASSIUM 4.8 mmol/L (3.5-5.1); SODIUM 134 mmol/L (136-145)
[2018-03-14 01:40] LABS: GLUCOSE,RANDOM 494 mg/dL (74-106)
[2018-03-14] MEDS ORDERED: DEXTROSE 5%-WATER - 50 ML IVPB ONE ×2 (02:21→07:54)
[2018-03-14] MEDS ORDERED: PIPERACILLIN/TAZOBACTAM 3.375 GM VIAL IVPB ONE ×2 (02:21→07:54)
[2018-03-14] MEDS: methylPREDNISolone NA SUCC 40 MG/1 ML VIAL IVPUSH SCH ×3 (02:44→16:57)
[2018-03-14] MEDS: PIPERACILLIN/TAZOB 3.375 GM 3.375 GM in DEXTROSE 5%-WATER - 50 ML IVPB SCH ×2 (02:44→10:28)
[2018-03-14] MEDS: HEPARIN NA (PORCINE) 5,000 UNITS/ML 1ML VIAL SQ SCH ×4 (02:44→21:17)
[2018-03-14 06:25] LABS: BASO % 0.1 % (0-2.0); HEMATOCRIT 40.9 % (35.4-49); HEMOGLOBIN 13.8 GM/dL (11.7-16.9); LYMPH % 2.9 % (8-40); MCH 31.4 pg (25.7-33.7); MCHC 33.7 g/dl (32.0-35.9); MEAN CELL VOLUME 93.2 fl (80-96); MEAN PLT VOLUME 8.1 fl (7.5-11.1); PLATELET COUNT 131 K/MM3 (134-434); RBC 4.39 M/mm3 (4.00-5.60); RDW 15.2 % (11.9-15.9); WHITE BLOOD COUNT 9.4 K/mm3 (4.0-10.0)
[2018-03-14] MEDS: INSULIN SLIDING SCALE (NOVOLOG) 1 VIAL SQ SCH ×4 (06:46→21:27)
[2018-03-14] MEDS ORDERED: INSULIN (LEVEMIR) 100 UNITS/ML UNITS SQ SCH (07:00)
[2018-03-14 07:08] LABS: ALBUMIN 2.5 g/dl (3.4-5.0); ALK PHOS 54 U/L (45-117); ANION GAP 8 MMOL/L (8-16); BILIRUBIN,TOTAL 0.5 mg/dL (0.2-1); BLOOD UREA NITROGEN 40 mg/dL (7-18); CALCIUM 8.2 mg/dL (8.5-10.1); CHLORIDE 101 mmol/L (98-107); CO2 27 mmol/L (21-32); MAGNESIUM 2.4 mg/dL (1.8-2.4); PHOSPHOROUS 4.5 mg/dL (2.5-4.9); POTASSIUM 4.6 mmol/L (3.5-5.1); SGOT/AST 32 U/L (15-37); SGPT/ALT 56 U/L (13-61); SODIUM 136 mmol/L (136-145); TOT PROT 5.3 g/dl (6.4-8.2)
[2018-03-14 07:45] LABS: GLUCOSE,RANDOM 344 mg/dL (74-106)
[2018-03-14] MEDS: ALBUTEROL SO4 2.5/IPRATROPIUM 0.5 INH SOL 3 ML VIAL.NEB. NEB SCH ×4 (08:50→21:15)
[2018-03-14 09:09] LABS: ANISOCYTOSIS 0; MACROCYTOSIS 0
[2018-03-14] MEDS ORDERED: FUROSEMIDE 40 MG/4 ML INJECTABLE VIAL IVPUSH ONE (09:50)
--- NOTE | 2018-03-14 09:53 | PN ---
Progress Note (short form) - Note Progress Note: Hospitalist/CORE WINDER Rodo to document today. Much improved today with no pedal edema; No actual infiltrate reported on Chest CT ? some new probably inflammatory nodes. His regular coverage at home is more aggressive than listed here.
[2018-03-14] MEDS ORDERED: PT OWN MED DRAWER 7, Y5N ONE ×2 (09:54→21:06)
--- NOTE | 2018-03-14 09:55 | PN ---
Teaching Attending Note Name of Resident: Estefania Urena ATTENDING PHYSICIAN STATEMENT I saw and evaluated the patient. I reviewed the resident's note and discussed the case with the resident. I agree with the resident's findings and plan as documented with exceptions below. SUBJECTIVE: patient seen and examined. breathing with improvement, upset that is being woken up every hour. No abdominal or urinary complaints. Reports his sliding scale pre meals at home starts at 80 and goes in increments of 2 for every 30 mg. OBJECTIVE: Vital Signs Period Temp Pulse Resp BP Sys/Meraz Pulse Ox Last 24 Hr 97.4 F-99.7 F 85-110 18-26 106-146/68-80 93-100 Intake & Output 03/11/18 03/12/18 03/13/18 03/14/18 23:59 23:59 23:59 23:59 Intake Total 510 360 Output Total 550 300 Balance -40 60 Weight 190 lb 193 lb 4 oz General: sitting in bed on VM, mild use of accessory muscles of respiration, able to speak in full sentences Chest: bibasilar fine rales, scattered wheezing, positive air entry Abdomen:Soft, obese, NT Extremities; unchanged pedal edema, L>R Home Medications Medication Instructions Recorded Albuterol Sulfate [Proair Hfa] 2 inh IH TID 02/21/18 Allopurinol [Zyloprim -] 50 mg PO DAILY 02/21/18 Aspirin 81 mg PO DAILY 02/21/18 Cholecalciferol (Vitamin D3) 2,000 unit PO DAILY 02/21/18 [Vitamin D -] Dulaglutide [Trulicity] 1.5 mg SQ WEEKLY 02/21/18 Ezetimibe [Zetia -] 10 mg PO DAILY 02/21/18 Insulin (Levemir) [Levemir Vial] 32 unit SQ ASDIR 02/21/18 Lactobacillus Acidophilus 1 each PO DAILY 02/21/18 [Acidophilus] Losartan Potassium [Cozaar -] 25 mg PO DAILY 02/21/18 Metoprolol Succinate 50 mg PO HS 02/21/18 Pantoprazole Sodium [Protonix] 40 mg PO DAILY 02/21/18 Pitavastatin Calcium [Livalo] 4 mg PO DAILY 02/21/18 Ubidecarenone [Co Q-10] 200 mg PO DAILY 02/21/18 Furosemide [Lasix] 60 mg PO DAILY 03/13/18 Prednisone 15 mg PO DAILY 03/13/18 Active Medications Albuterol Sulfate (Ventolin 0.083% Nebulizer Soln -) 1 amp NEB Q4H PRN PRN Reason: SHORT OF BREATH/WHEEZING Albuterol/Ipratropium (Duoneb -) 1 amp NEB RQID [facility] Last Admin: 03/14/18 08:50 Dose: 1 amp Aspirin (Asa -) 81 mg PO DAILY [facility] Atorvastatin Calcium (Lipitor -) 20 mg PO HS [facility] Last Admin: 03/13/18 21:35 Dose: 20 mg Ezetimibe (Zetia -) 10 mg PO DAILY [facility] Furosemide (Lasix Injection -) 20 mg IVPUSH ONCE ONE Stop: 03/14/18 09:51 Heparin Sodium (Porcine) (Heparin -) 5,000 unit SQ Q8H-IV [facility] Last Admin: 03/14/18 02:44 Dose: 5,000 unit Piperacillin Sod/Tazobactam (Sod 3.375 gm/ Dextrose) 50 mls @ 100 mls/hr IVPB Q8H-IV [facility]; Protocol Last Admin: 03/14/18 02:44 Dose: 100 mls/hr Azithromycin (Zithromax 500mg Ivpb (Pre-Docked)) 500 mg in 250 mls @ 250 mls/ hr IVPB DAILY [facility] Insulin Aspart (Novolog Vial Sliding Scale -) 1 vial SQ ACHS [facility]; Protocol Last Admin: 03/14/18 06:46 Dose: 6 units Insulin Detemir (Levemir Vial) 32 units SQ HS [facility] Last Admin: 03/13/18 21:34 Dose: 32 units Insulin Detemir (Levemir Vial) 10 units SQ DAILY [facility] Methylprednisolone Sodium Succinate (Solu-Medrol -) 60 mg IVPUSH Q8H-IV [facility] Last Admin: 03/14/18 02:44 Dose: 60 mg Metoprolol Succinate (Toprol Xl -) 50 mg PO HS [facility] Last Admin: 03/13/18 21:35 Dose: 50 mg Oseltamivir Phosphate (Tamiflu -) 30 mg PO BID [facility] Stop: 03/19/18 09:59 Pantoprazole Sodium (Protonix -) 40 mg PO DAILY [facility] Senna (Senna -) 2 tab PO HS PRN PRN Reason: CONSTIPATION Laboratory Results - last 24 hr 03/13/18 03/13/18 03/13/18 09:30 09:32 09:40 WBC 14.9 H RBC 4.87 Hgb 15.3 Hct 45.1 MCV 92.6 MCH 31.4 MCHC 33.9 RDW 15.6 Plt Count 168 D MPV 8.3 Absolute Neuts (auto) 11.9 H Neutrophils % 79.5 Neutrophils % (Manual) Band Neutrophils % Lymphocytes % 12.1 D Lymphocytes % (Manual) Monocytes % 6.9 Monocytes % (Manual) Eosinophils % 0.6 Eosinophils % (Manual) Basophils % 0.9 Basophils % (Manual) Myelocytes % (Man) Promyelocytes % (Man) Blast Cells % (Manual) Nucleated RBC % 1 H Metamyelocytes Hypochromia Polychromasia Poikilocytosis Anisocytosis Microcytosis Macrocytosis PT with INR 12.40 INR 1.05 VBG pH POC VBG pCO2 POC VBG pO2 Mixed VBG HCO3 Sodium Potassium Chloride Carbon Dioxide Anion Gap BUN Creatinine Creat Clearance w eGFR Random Glucose Lactic Acid 2.9 H* Calcium Phosphorus Magnesium Total Bilirubin AST ALT Alkaline Phosphatase Creatine Kinase Troponin I B-Natriuretic Peptide Total Protein Albumin Urine Color Urine Appearance Urine pH Ur Specific [place] Urine Protein Urine Glucose (UA) Urine Ketones Urine Blood Urine Nitrite Urine Bilirubin Urine Urobilinogen Ur Leukocyte Esterase Urine WBC (Auto) Urine RBC (Auto) Hyaline Casts Influenza A (Rapid) Influenza B (Rapid) 03/13/18 03/13/18 03/13/18 09:40 09:40 09:45 WBC RBC Hgb Hct MCV MCH MCHC RDW Plt Count MPV Absolute Neuts (auto) Neutrophils % Neutrophils % (Manual) Band Neutrophils % Lymphocytes % Lymphocytes % (Manual) Monocytes % Monocytes % (Manual) Eosinophils % Eosinophils % (Manual) Basophils % Basophils % (Manual) Myelocytes % (Man) Promyelocytes % (Man) Blast Cells % (Manual) Nucleated RBC % Metamyelocytes Hypochromia Polychromasia Poikilocytosis Anisocytosis Microcytosis Macrocytosis PT with INR INR VBG pH POC VBG pCO2 POC VBG pO2 Mixed VBG HCO3 Sodium 142 Potassium 5.3 H Chloride 108 H Carbon Dioxide 25 Anion Gap 9 BUN 35 H Creatinine 1.7 H Creat Clearance w eGFR 40.04 Random Glucose 154 H Lactic Acid Calcium 8.6 Phosphorus Magnesium 1.7 L Total Bilirubin 0.8 AST 75 H ALT 79 H Alkaline Phosphatase 65 Creatine Kinase 90 Troponin I 0.04 B-Natriuretic Peptide 5372.8 H Total Protein 5.7 L Albumin 2.7 L Urine Color Urine Appearance Urine pH Ur Specific [place] Urine Protein Urine Glucose (UA) Urine Ketones Urine Blood Urine Nitrite Urine Bilirubin Urine Urobilinogen Ur Leukocyte Esterase Urine WBC (Auto) Urine RBC (Auto) Hyaline Casts Influenza A (Rapid) Positive A Influenza B (Rapid) Negative 03/13/18 03/13/18 03/13/18 09:50 11:27 11:30 WBC RBC Hgb Hct MCV MCH MCHC RDW Plt Count MPV Absolute Neuts (auto) Neutrophils % Neutrophils % (Manual) Band Neutrophils % Lymphocytes % Lymphocytes % (Manual) Monocytes % Monocytes % (Manual) Eosinophils % Eosinophils % (Manual) Basophils % Basophils % (Manual) Myelocytes % (Man) Promyelocytes % (Man) Blast Cells % (Manual) Nucleated RBC % Metamyelocytes Hypochromia Polychromasia Poikilocytosis Anisocytosis Microcytosis Macrocytosis PT with INR INR VBG pH 7.48 H POC VBG pCO2 34.6 L POC VBG pO2 54.0 H Mixed VBG HCO3 25.3 H Sodium Potassium Chloride Carbon Dioxide Anion Gap BUN Creatinine Creat Clearance w eGFR Random Glucose Lactic Acid 1.4 Calcium Phosphorus Magnesium Total Bilirubin AST ALT Alkaline Phosphatase Creatine Kinase Troponin I B-Natriuretic Peptide Total Protein Albumin Urine Color Straw Urine Appearance Clear Urine pH 5.0 Ur Specific [place] 1.008 L Urine Protein 1+ H Urine Glucose (UA) Negative Urine Ketones Negative Urine Blood Negative Urine Nitrite Negative Urine Bilirubin Negative Urine Urobilinogen Negative Ur Leukocyte Esterase Negative Urine WBC (Auto) <1 Urine RBC (Auto) <1 Hyaline Casts 4 Influenza A (Rapid) Influenza B (Rapid) 03/13/18 03/14/18 03/14/18 18:00 00:45 05:30 WBC 9.4 RBC 4.39 Hgb 13.8 Hct 40.9 MCV 93.2 MCH 31.4 MCHC 33.7 RDW 15.2 Plt Count 131 L D MPV 8.1 Absolute Neuts (auto) 8.7 H Neutrophils % 93.0 H Neutrophils % (Manual) 94.0 H D Band Neutrophils % 1.0 Lymphocytes % 2.9 L D Lymphocytes % (Manual) 4.0 L D Monocytes % 4.0 Monocytes % (Manual) 1 L D Eosinophils % 0.0 D Eosinophils % (Manual) 0.0 D Basophils % 0.1 Basophils % (Manual) 0.0 Myelocytes % (Man) 0 Promyelocytes % (Man) 0 Blast Cells % (Manual) 0 Nucleated RBC % 0 Metamyelocytes 0 D Hypochromia 0 Polychromasia 0 Poikilocytosis 0 Anisocytosis 0 Microcytosis 0 Macrocytosis 0 PT with INR INR VBG pH POC VBG pCO2 POC VBG pO2 Mixed VBG HCO3 Sodium 136 134 L Potassium 5.7 H 4.8 Chloride 101 100 Carbon Dioxide 24 24 Anion Gap 11 9 BUN 36 H 41 H Creatinine 2.3 H 2.3 H Creat Clearance w eGFR 28.25 28.25 Random Glucose 544 H* 494 H* Lactic Acid Calcium 7.9 L 8.0 L Phosphorus Magnesium Total Bilirubin AST ALT Alkaline Phosphatase Creatine Kinase Troponin I B-Natriuretic Peptide Total Protein Albumin Urine Color Urine Appearance Urine pH Ur Specific [place] Urine Protein Urine Glucose (UA) Urine Ketones Urine Blood Urine Nitrite Urine Bilirubin Urine Urobilinogen Ur Leukocyte Esterase Urine WBC (Auto) Urine RBC (Auto) Hyaline Casts Influenza A (Rapid) Influenza B (Rapid) 03/14/18 05:30 WBC RBC Hgb Hct MCV MCH MCHC RDW Plt Count MPV Absolute Neuts (auto) Neutrophils % Neutrophils % (Manual) Band Neutrophils % Lymphocytes % Lymphocytes % (Manual) Monocytes % Monocytes % (Manual) Eosinophils % Eosinophils % (Manual) Basophils % Basophils % (Manual) Myelocytes % (Man) Promyelocytes % (Man) Blast Cells % (Manual) Nucleated RBC % Metamyelocytes Hypochromia Polychromasia Poikilocytosis Anisocytosis Microcytosis Macrocytosis PT with INR INR VBG pH POC VBG pCO2 POC VBG pO2 Mixed VBG HCO3 Sodium 136 Potassium 4.6 Chloride 101 Carbon Dioxide 27 Anion Gap 8 BUN 40 H Creatinine 2.0 H Creat Clearance w eGFR 33.20 Random Glucose 344 H* Lactic Acid Calcium 8.2 L Phosphorus 4.5 Magnesium 2.4 Total Bilirubin 0.5 AST 32 ALT 56 Alkaline Phosphatase 54 Creatine Kinase Troponin I B-Natriuretic Peptide Total Protein 5.3 L Albumin 2.5 L Urine Color Urine Appearance Urine pH Ur Specific [place] Urine Protein Urine Glucose (UA) Urine Ketones Urine Blood Urine Nitrite Urine Bilirubin Urine Urobilinogen Ur Leukocyte Esterase Urine WBC (Auto) Urine RBC (Auto) Hyaline Casts Influenza A (Rapid) Influenza B (Rapid) Microbiology 03/13/18 09:45 Blood - Peripheral Venous Blood Culture - Preliminary NO GROWTH OBTAINED AFTER 24 HOURS, INCUBATION TO CONTINUE FOR 4 DAYS. 03/13/18 09:30 Blood - Peripheral Venous Blood Culture - Preliminary NO GROWTH OBTAINED AFTER 24 HOURS, INCUBATION TO CONTINUE FOR 4 DAYS. ASSESSMENT AND PLAN: 72 yom with PMhx of COPD, Steroid/oxygen (3L) dependent Pulmonary fibrosis/ILD , SHANTI on CPAP at night, Pulmonary HTN, CKD stage II, LV systolic dysfunction, prior admissions for CHF, CAD s/p RI, 2Stents , T2DM on Insulin, Hypercholesterolemia admitted with acute on chronic hypoxic respiratory failure , Acute influenza A illness. -Acute on chronic hypoxic respiratory failure -Acute Influenza A illness -Sepsis -r/o secondary PNA given immunocompromised state -Acute COPD exacerbation -Acute on chronic heart failure exacerbation, ?systolic -TAZ on CKD stage II, suspect from above -Hyperkalemia, suspect from TAZ and severe hyperglycemia -Lactic acidosis, suspect from work of breathing+/- sepsis -Steroid/Oxygen dependent Pulmonary Fibrosis -SHANTI on CPAP at night -CAD s/p PCI -LV systolic dysfunction -IDDM Plan: Clinically improved. Tamiflu day [address] chest with no clear infiltrate. Discuss with pulmonary to d/c additional abx. IV solumedrol current dose, add standing nebs. 2D echo results reviewed Weight gain compared to prior dry weight. Also still with tachypnea, high oxygen requirements. CT chest with ?Congestion, elevated BNP. Trial with lasix 20 mg IV x1. Strict I/Os, daily weights. Hold ARB. Monitor renal function. renal consult (patient sees Dr. Boswell) Tighter sliding scale at home, change to tighter sliding scale per home dosing. (to start at 81 and increments of 2 for every 30) Levemir 32 units hs, ISS, diabetic diet. ASA/statin/metoprolol. LE duplex neg for DVT. DVTPPX heparin Code status: full code Dispo pending clinical improvement. Plan discussed with patient in detail, all questions answered. Discussed with nursing.
[2018-03-14] MEDS ORDERED: LOSARTAN POTASSIUM 25 MG TABLET PO SCH (10:00)
[2018-03-14] MEDS: PANTOPRAZOLE 40 MG TABLET (FP) PO SCH (10:32)
[2018-03-14] MEDS: ASPIRIN 81 MG CHEWABLE TABLETS PO SCH (10:32)
[2018-03-14] MEDS: OSELTAMIVIR PHOSPHATE 30 MG CAPSULE PO SCH ×2 (10:38→21:18)
[2018-03-14] MEDS: EZETIMIBE 10 MG TABLET (FP) PO SCH (10:38)
[2018-03-14] MEDS: AZITHROMYCIN IVPB 500 MG/250 ML BAG IVPB SCH (10:38)
[2018-03-14] MEDS ORDERED: INSULIN SLIDING SCALE (NOVOLOG) 1 VIAL SQ SCH (11:00)
--- NOTE | 2018-03-14 11:18 | PN ---
Physical Exam: SUBJECTIVE: Patient seen and examined by me at bedside. Patient with high glucose levels with increased coverage. However, patients PCP confirmed sliding scale coverage and has more aggressive coverage at home. Patient otherwise reports feeling much better and is able to breath better. COntinue to use the venti mask and saturating around 93%. Otherwise, patient offers no other complaints Denies any chest pain, palpitations, abdominal pain, diarrhea, constipation, headaches, acute vision changes, urinary or bowel symptoms. OBJECTIVE: Vital Signs Period Temp Pulse Resp BP Sys/Meraz Pulse Ox Last 24 Hr 97.4 F-98.2 F 85-105 18-18 123-146/72-80 96-97 GENERAL: Awake, alert, and fully oriented, in mild respiratory distress EYES: Sclera anicteric, Left eye conjunctivitis. EARS, NOSE, THROAT: Oropharynx clear without exudates. Moist mucous membranes. LUNGS: Crackles throughout lung bases bilaterally with some expiratory wheezing. On venti mask, HEART: Tachycardic with regular rhythm, normal S1 and S2 without murmur, rub or gallop. ABDOMEN: Soft, nontender, not distended, normoactive bowel sounds LOWER EXTREMITIES: 1+ pitting edema Laboratory Results 03/14/18 05:30 03/14/18 05:30 Active Medications Generic Name Dose Route Start Last Admin Trade Name Freq PRN Reason Stop Dose Admin Albuterol Sulfate 1 amp 03/13/18 13:34 Ventolin 0.083% Nebulizer Soln - NEB Q4H PRN SHORT OF BREATH/WHEEZING Albuterol/Ipratropium 1 amp 03/13/18 16:00 03/14/18 08:50 Duoneb - NEB 1 amp RQID [facility] Administration Aspirin 81 mg 03/14/18 10:00 03/14/18 10:32 Asa - PO 81 mg DAILY [facility] Administration Atorvastatin Calcium 20 mg 03/13/18 22:00 03/13/18 21:35 Lipitor - PO 20 mg HS [facility] Administration Ezetimibe 10 mg 03/14/18 10:00 03/14/18 10:38 Zetia - PO 10 mg DAILY [facility] Administration Heparin Sodium (Porcine) 5,000 unit 03/13/18 18:00 03/14/18 10:32 Heparin - SQ 5,000 unit Q8H-IV [facility] Administration Piperacillin Sod/Tazobactam 50 mls @ 100 mls/hr 03/13/18 13:45 03/14/18 10:28 Sod 3.375 gm/ Dextrose IVPB 100 mls/hr Q8H-IV [facility] Administration Protocol Azithromycin 500 mg in 250 mls @ 250 mls/hr 03/13/18 14:49 03/14/18 10:38 Zithromax 500mg Ivpb (Pre-Docked) IVPB 250 mls/hr DAILY [facility] Administration Insulin Aspart 1 vial 03/14/18 22:00 Novolog Vial Sliding Scale - SQ HS [facility] Protocol Insulin Aspart 1 vial 03/14/18 11:00 Novolog Vial Sliding Scale - SQ TIDAC [facility] Protocol Insulin Detemir 32 units 03/13/18 22:00 03/13/18 21:34 Levemir Vial SQ 32 units HS [facility] Administration Methylprednisolone Sodium Succinate 60 mg 03/13/18 13:45 03/14/18 10:30 Solu-Medrol - IVPUSH 60 mg Q8H-IV [facility] Administration Metoprolol Succinate 50 mg 03/13/18 22:00 03/13/18 21:35 Toprol Xl - PO 50 mg HS [facility] Administration Oseltamivir Phosphate 30 mg 03/14/18 10:00 03/14/18 10:38 Tamiflu - PO 03/19/18 09:59 30 mg BID [facility] Administration Pantoprazole Sodium 40 mg 03/14/18 10:00 03/14/18 10:32 Protonix - PO 40 mg DAILY [facility] Administration Senna 2 tab 03/14/18 22:00 Senna - PO HS PRN CONSTIPATION ASSESSMENT/PLAN: Patient is a 72 year old male who presented with worsening shortness of breath and was found to be influenza A positive with possible Pneumonia. Patient admitted to telemetry for further monitoring and management. Acute Hypoxic Respiratory Failure -Likely secondary to acute CHF ans COPD exac from superimposed influenzaa and possible PNA -Clinically improved but still requires high 02 with some tachypnea -Continue Duo-nebs standing and PRN -Continue IV medrol 60mg q8h -CT chest with no clear infiltrate. Antibiotics discontinued -O2 to keep SpO2 >90% -Urine antigens pending -Sputum and blood cultures pending Influenza A Positive -Flu swab positive -Will continue Tamiflu 30mg PO BID Pulmonary Fibrosis/ILD -Followed by Dr. Varela at [place] -Was taking Ofev but was discontinued 2 weeks ago and now on Chronic Prednisone -On chronic 02 but is noncompliant according to daughter Acute on Chronic CHF -Continues to have weight gain but is making urine -Will give IV lasix 20mg -Continue Metoprolol -Will hold Losartan for now due to TAZ -Daily weights -Strict I&O's Acute on Chronic COPD Exacerbation -Nebulizers standing -IV medrol -O2 to keep SpO2 >90% Leukocytosis- improving -Likely from chronic prednisone use HyperKalemia -Likely secondary to TAZ -Given albuterol SHANTI -On CPAP at night. Will resume CAD s/p Stents -Continue ASA TAZ on CKD- Improving -Likely from increased Lasix -Will hold Losartan -Renally dose medications -Continue to monitor IDDMII with Uncontrolled Hyperglycemia -BGM -ISS -Lantus 32 units HS -Will get coverage information from his principal ios developer, Dr. Christianson -Will put endo consult HTN -Continue Metoprolol -Hold Losartan -Monitor BP HLD -Continue Zetia and Atorvastatin GERD -Continue Protonix 40mg PO daily F/E/N -On no fluids -Electrolytes wnl -Diabetic/Sodium controlled diet Prophylaxis -Heparin sq TID for DVT -Protonix for GI Disposition -Full code. HCP is his daughter Courtney -Continues to require 02 monitoring Visit type - Emergency Visit Emergency Visit: Yes ED Registration Date: 03/13/18 Care time: The patient presented to the Emergency Department on the above date and was hospitalized for further evaluation of their emergent condition. - New Patient This patient is new to me today: No - Critical Care Critical Care patient: No
--- NOTE | 2018-03-14 12:09 | PN ---
Progress Note, Physician History of Present Illness: pulmonary alert,dyspneic,+ cough - Current Medication List Current Medications: Active Medications Albuterol Sulfate (Ventolin 0.083% Nebulizer Soln -) 1 amp NEB Q4H PRN PRN Reason: SHORT OF BREATH/WHEEZING Albuterol/Ipratropium (Duoneb -) 1 amp NEB RQID [facility] Last Admin: 03/14/18 12:03 Dose: 1 amp Aspirin (Asa -) 81 mg PO DAILY [facility] Last Admin: 03/14/18 10:32 Dose: 81 mg Atorvastatin Calcium (Lipitor -) 20 mg PO HS [facility] Last Admin: 03/13/18 21:35 Dose: 20 mg Ezetimibe (Zetia -) 10 mg PO DAILY [facility] Last Admin: 03/14/18 10:38 Dose: 10 mg Heparin Sodium (Porcine) (Heparin -) 5,000 unit SQ Q8H-IV [facility] Last Admin: 03/14/18 10:32 Dose: 5,000 unit Piperacillin Sod/Tazobactam (Sod 3.375 gm/ Dextrose) 50 mls @ 100 mls/hr IVPB Q8H-IV [facility]; Protocol Last Admin: 03/14/18 10:28 Dose: 100 mls/hr Azithromycin (Zithromax 500mg Ivpb (Pre-Docked)) 500 mg in 250 mls @ 250 mls/ hr IVPB DAILY [facility] Last Admin: 03/14/18 10:38 Dose: 250 mls/hr Insulin Aspart (Novolog Vial Sliding Scale -) 1 vial SQ HS [facility]; Protocol Insulin Aspart (Novolog Vial Sliding Scale -) 1 vial SQ TIDAC [facility]; Protocol Insulin Detemir (Levemir Vial) 32 units SQ [facility] Last Admin: 03/13/18 21:34 Dose: 32 units Methylprednisolone Sodium Succinate (Solu-Medrol -) 60 mg IVPUSH Q8H-IV [facility] Last Admin: 03/14/18 10:30 Dose: 60 mg Metoprolol Succinate (Toprol Xl -) 50 mg PO [facility] Last Admin: 03/13/18 21:35 Dose: 50 mg Oseltamivir Phosphate (Tamiflu -) 30 mg PO BID [facility] Stop: 03/19/18 09:59 Last Admin: 03/14/18 10:38 Dose: 30 mg Pantoprazole Sodium (Protonix -) 40 mg PO DAILY [facility] Last Admin: 03/14/18 10:32 Dose: 40 mg Senna (Senna -) 2 tab PO HS PRN PRN Reason: CONSTIPATION - Objective Vital Signs: Vital Signs Temperature 98.0 F 03/14/18 05:59 Pulse Rate 87 03/14/18 05:59 Respiratory Rate 18 03/14/18 05:59 Blood Pressure 146/80 03/14/18 05:59 O2 Sat by Pulse Oximetry (%) 96 03/13/18 21:00 Constitutional: Yes: Well Nourished, Mild Distress Eyes: Yes: WNL HENT: Yes: WNL Neck: Yes: WNL Cardiovascular: Yes: Regular Rate and Rhythm, S1, S2 Respiratory: Yes: Rales (bilateral crackles,scattered yolande rhonchi) Gastrointestinal: Yes: Normal Bowel Sounds, Soft Extremities: Yes: WNL Edema: No Labs: CBC, BMP 03/14/18 05:30 03/14/18 05:30 INR, PTT INR 1.05 (0.83-1.09) 03/13/18 09:30 Assessment/Plan Problem List - Problems (1) Acute and chronic respiratory failure with hypoxia Code(s): J96.21 - ACUTE AND CHRONIC RESPIRATORY FAILURE WITH HYPOXIA (2) Influenza A Code(s): J10.1 - FLU DUE TO OTH IDENT INFLUENZA VIRUS W OTH RESP MANIFEST (3) Sepsis Code(s): A41.9 - SEPSIS, UNSPECIFIED ORGANISM (4) Lactic acidosis Code(s): E87.2 - ACIDOSIS (5) [id number] kidney injury Code(s): N17.9 - ACUTE KIDNEY FAILURE, UNSPECIFIED; N18.9 - CHRONIC KIDNEY DISEASE, UNSPECIFIED Qualifiers: Acute renal failure type: unspecified Chronic kidney disease stage: unspecified stage Qualified Code(s): N17.9 - Acute kidney failure, unspecified ; N18.9 - Chronic kidney disease, unspecified; N18.9 - Chronic kidney disease, unspecified (6) CAD (coronary artery disease) Code(s): I25.10 - ATHSCL HEART DISEASE OF [place] CORONARY ARTERY W/O ANG PCTRS Qualifiers: [place] vs. 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 insulin use: with marine oil terminal superintendent use Diabetes mellitus complication status: with kidney complications Diabetes mellitus complication detail: with chronic kidney disease Chronic kidney disease stage: stage 3 (moderate) Qualified Code(s): E11.22 - Type 2 diabetes mellitus with diabetic chronic kidney disease; N18.3 - Chronic kidney disease, stage 3 (moderate); Z79.4 - termite treater 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) use of insulin (9) HTN (hypertension) Code(s): I10 - ESSENTIAL (PRIMARY) HYPERTENSION Qualifiers: Hypertension type: essential hypertension Qualified Code(s): I10 - Essential (primary) hypertension (10) Pulmonary fibrosis Code(s): J84.10 - PULMONARY FIBROSIS, UNSPECIFIED (11) Sleep apnea Code(s): G47.30 - SLEEP APNEA, UNSPECIFIED Assessment/Plan Acute on Chronic Hypoxic Respiratory Failure Influenza A Sepsis r/o Pneumonia Acute on Chronic Renal Failure Lactic Acidosis Interstitial Lung Disease COPD CAD LV Systolic Dysfunction HTN DM SHANTI - tamiflu - antibiotics - can d/c antibiotics if no acute infiltrate seen on CT - IV medrol same dose - inhaled bronchodilators - O2 to keep SpO2 >90% - BiPAP as needed - monitor urine output, creatinine - glucose control - DVT prophylaxis DR PALACIOS
--- NOTE | 2018-03-14 13:22 | CONSULT ---
Consult Consult Specialty:: Nephrology Reason for Consultation:: TAZ - History of Present Illness Chief Complaint: SOB History of Present Illness: Patient is a 72 year old male with a PMHx of Pulmonary fibrosis/ILD (Dx 3 years ago, currently on 3L 02), COPD, CAD s/p 3 stent placements, Systolic CHF, HTN, IDDMII, Anxiety, BPH, CKD, GERD, HLD, who presented for severe shortness of breath and found to be influenza A positive with patchy lung infiltrates. Pt has had CKD for up to 10years, follows with Dr Rodriguez. Pt had a cardiac event in 1990 and then cardiac stents twice. - Past Medical History Cardio/Vascular: Yes: CAD, CHF, HTN, UT, Pulmonary Hypertension Pulmonary: Yes: COPD, O2 Dependent, Pulmonary Fibrosis, Sleep Apnea, Other (ILD) Renal/: Yes: Renal Inusuff, BPH, Hematuria Psych: Yes: Anxiety Endocrine: Yes: Diabetes Mellitus. No: Thierry's Disease - Past Surgical History Past Surgical History: Yes: Appendectomy, Cataract Removal (coronary artery stent by history. 2010 3 stents placed), Stent - Alcohol/Substance Use Hx Alcohol Use: No History of Substance Use: reports: None - Smoking History Smoking history: Unknown if ever smoked Have you smoked in the past 12 months: No Aproximately how many cigarettes per day: 0 If you are a former smoker, when did you quit?: 1989 - Social History ADL: Independent Occupation: retired secondary to disability History of Recent Travel: No Home Medications - Allergies Allergies/Adverse Reactions: Allergies Allergy/AdvReac Type Severity Reaction Status Date / Time No Known Drug Allergies Allergy Verified 02/21/18 12:21 - Home Medications Home Medications: Ambulatory Orders Albuterol Sulfate [Proair Hfa] 2 inh IH TID 02/21/18 Allopurinol [Zyloprim -] 50 mg PO DAILY 02/21/18 Aspirin 81 mg PO DAILY 02/21/18 Cholecalciferol (Vitamin D3) [Vitamin D -] 2,000 unit PO DAILY 02/21/18 Dulaglutide [Trulicity] 1.5 mg SQ WEEKLY 02/21/18 Ezetimibe [Zetia -] 10 mg PO DAILY 02/21/18 Insulin (Levemir) [Levemir Vial] 32 unit SQ [facility] 02/21/18 Lactobacillus Acidophilus [Acidophilus] 1 each PO DAILY 02/21/18 Losartan Potassium [Cozaar -] 25 mg PO DAILY 02/21/18 Metoprolol Succinate 50 mg PO HS 02/21/18 Pantoprazole Sodium [Protonix] 40 mg PO DAILY 02/21/18 Pitavastatin Calcium [Livalo] 4 mg PO DAILY 02/21/18 Ubidecarenone [Co Q-10] 200 mg PO DAILY 02/21/18 Furosemide [Lasix] 60 mg PO DAILY 03/13/18 Prednisone 15 mg PO DAILY 03/13/18 Family Disease History - Family Disease History Family Disease History: Diabetes: Father, Brother, Heart Disease: Father, Other : Mother (dementia) Physical Exam Vital Signs: Vital Signs Temperature 98.2 F 03/14/18 10:00 Pulse Rate 79 03/14/18 10:00 Respiratory Rate 18 03/14/18 10:00 Blood Pressure 139/79 03/14/18 10:00 O2 Sat by Pulse Oximetry (%) 96 03/14/18 09:00 Labs: CBC, BMP 03/14/18 05:30 03/14/18 05:30 Assessment/Plan Ambulatory Orders Albuterol Sulfate [Proair Hfa] 2 inh IH TID 02/21/18 Allopurinol [Zyloprim -] 50 mg PO DAILY 02/21/18 Aspirin 81 mg PO DAILY 02/21/18 Cholecalciferol (Vitamin D3) [Vitamin D -] 2,000 unit PO DAILY 02/21/18 Dulaglutide [Trulicity] 1.5 mg SQ WEEKLY 02/21/18 Ezetimibe [Zetia -] 10 mg PO DAILY 02/21/18 Insulin (Levemir) [Levemir Vial] 32 unit SQ [facility]IR 02/21/18 Lactobacillus Acidophilus [Acidophilus] 1 each PO DAILY 02/21/18 Losartan Potassium [Cozaar -] 25 mg PO DAILY 02/21/18 Metoprolol Succinate 50 mg PO HS 02/21/18 Pantoprazole Sodium [Protonix] 40 mg PO DAILY 02/21/18 Pitavastatin Calcium [Livalo] 4 mg PO DAILY 02/21/18 Ubidecarenone [Co Q-10] 200 mg PO DAILY 02/21/18 Furosemide [Lasix] 60 mg PO DAILY 03/13/18 Prednisone 15 mg PO DAILY 01/17/19 Current Medications Albuterol Sulfate (Ventolin 0.083% Nebulizer Soln -) 1 amp NEB Q4H PRN PRN Reason: SHORT OF BREATH/WHEEZING Albuterol/Ipratropium (Duoneb -) 1 amp NEB RQID [facility] Last Admin: 03/14/18 12:03 Dose: 1 amp Aspirin (Asa -) 81 mg PO DAILY [facility] Last Admin: 03/14/18 10:32 Dose: 81 mg Atorvastatin Calcium (Lipitor -) 20 mg PO HS [facility] Last Admin: 03/13/18 21:35 Dose: 20 mg Ezetimibe (Zetia -) 10 mg PO DAILY [facility] Last Admin: 03/14/18 10:38 Dose: 10 mg Heparin Sodium (Porcine) (Heparin -) 5,000 unit SQ TID [facility] Last Admin: 03/14/18 14:00 Dose: 5,000 unit Piperacillin Sod/Tazobactam (Sod 3.375 gm/ Dextrose) 50 mls @ 100 mls/hr IVPB Q8H-IV [facility]; Protocol Last Admin: 03/14/18 10:28 Dose: 100 mls/hr Azithromycin (Zithromax 500mg Ivpb (Pre-Docked)) 500 mg in 250 mls @ 250 mls/ hr IVPB DAILY [facility] Last Admin: 03/14/18 10:38 Dose: 250 mls/hr Insulin Aspart (Novolog Vial Sliding Scale -) 1 vial SQ HS [facility]; Protocol Insulin Aspart (Novolog Vial Sliding Scale -) 1 vial SQ TIDAC [facility]; Protocol Last Admin: 03/14/18 12:44 Dose: 18 units Insulin Detemir (Levemir Vial) 45 units SQ HS [facility] Insulin Detemir (Levemir Vial) 20 units SQ AM [facility] Methylprednisolone Sodium Succinate (Solu-Medrol -) 60 mg IVPUSH Q8H-IV [facility] Last Admin: 03/14/18 10:30 Dose: 60 mg Metoprolol Succinate (Toprol Xl -) 50 mg PO HS [facility] Last Admin: 03/13/18 21:35 Dose: 50 mg Oseltamivir Phosphate (Tamiflu -) 30 mg PO BID [facility] Stop: 03/19/18 09:59 Last Admin: 03/14/18 10:38 Dose: 30 mg Pantoprazole Sodium (Protonix -) 40 mg PO DAILY [facility] Last Admin: 01/18/19 10:32 Dose: 40 mg Senna (Senna -) 2 tab PO HS PRN PRN Reason: CONSTIPATION Assessment Patient is a 72 year old male with worsening shortness of breath and was found to be influenza A positive with possible Pneumonia, now with TAZ Acute Hypoxic Respiratory Failure Influenza A Positive Pulmonary Fibrosis/ILD Acute on Chronic CHF Acute on Chronic COPD Exacerbation Leukocytosis- improving HyperKalemia SHANTI CAD s/p Stents TAZ on CKD- Improving IDDMII with Uncontrolled Hyperglycemia HTN HLD GERD Proteinuria Hypoalbuminemia Plan: TAZ with CKD (diabetic nephropathy) Likely BUN elevation in setting of Steroid use Pt baseline CR 1.7 was 2.3 yesterday, trending down GFR EPI-33ml/min/1.73m2 (CKD stage 3b)with proteinuria 1+ improved from 2+ in past([id number]) Could be in setting of hyperglycemia with prerenalAKI from dehydration Encourage tight glycemic control Consider resumption of losartan with improvement in kidney function Avoid nephrotoxic medication Encourage adequate PO hydration Visit type - Emergency Visit Emergency Visit: Yes ED Registration Date: 03/13/18 Care time: The patient presented to the Emergency Department on the above date and was hospitalized for further evaluation of their emergent condition. - New Patient This patient is new to me today: Yes Date on this admission: 03/14/18 - Critical Care Critical Care patient: No
--- NOTE | 2018-03-14 14:53 | PN ---
Teaching Attending Note Name of Resident: Sierra Webb (Nephrology) ATTENDING PHYSICIAN STATEMENT I saw and evaluated the patient. I reviewed the resident's note and discussed the case with the resident. I agree with the resident's findings and plan as documented. Renal Pt is a 72 year old make with pmhx of copd, pulm fibrosis on 3l nc, chf, dm, ckd and cad who presents with shortness of breath and cough. He also had increased edema. I was called to evaluate him for elevated communication specialist. He has ckd and follows with Dr Boswell. His renal function is improved today. pmhx ckd pulm fibrosis copd dm cad nkda family hx denies ros sob Current Medications Generic Name Dose Route Start Last Admin Trade Name Freq PRN Reason Stop Dose Admin Albuterol Sulfate 1 amp 03/13/18 13:34 Ventolin 0.083% Nebulizer Soln - NEB Q4H PRN SHORT OF BREATH/WHEEZING Albuterol/Ipratropium 1 amp 03/13/18 16:00 03/14/18 12:03 Duoneb - NEB 1 amp RQID [facility] Administration Aspirin 81 mg 03/14/18 10:00 03/14/18 10:32 Asa - PO 81 mg DAILY [facility] Administration Atorvastatin Calcium 20 mg 03/13/18 22:00 03/13/18 21:35 Lipitor - PO 20 mg HS [facility] Administration Ezetimibe 10 mg 03/14/18 10:00 03/14/18 10:38 Zetia - PO 10 mg DAILY [facility] Administration Heparin Sodium (Porcine) 5,000 unit 03/14/18 14:00 03/14/18 14:00 Heparin - SQ 5,000 unit TID [facility] Administration Piperacillin Sod/Tazobactam 50 mls @ 100 mls/hr 03/13/18 13:45 03/14/18 10:28 Sod 3.375 gm/ Dextrose IVPB 100 mls/hr Q8H-IV [facility] Administration Protocol Azithromycin 500 mg in 250 mls @ 250 mls/hr 03/13/18 14:49 03/14/18 10:38 Zithromax 500mg Ivpb (Pre-Docked) IVPB 250 mls/hr DAILY [facility] Administration Insulin Aspart 1 vial 03/14/18 22:00 Novolog Vial Sliding Scale - SQ HS [facility] Protocol Insulin Aspart 1 vial 03/14/18 11:00 03/14/18 12:44 Novolog Vial Sliding Scale - SQ 18 units TIDAC [facility] Administration Protocol Insulin Detemir 45 units 03/14/18 22:00 Levemir Vial SQ HS [facility] Insulin Detemir 20 units 03/15/18 07:00 Levemir Vial SQ AM [facility] Methylprednisolone Sodium Succinate 60 mg 03/13/18 13:45 03/14/18 10:30 Solu-Medrol - IVPUSH 60 mg Q8H-IV [facility] Administration Metoprolol Succinate 50 mg 03/13/18 22:00 03/13/18 21:35 Toprol Xl - PO 50 mg HS [facility] Administration Oseltamivir Phosphate 30 mg 03/14/18 10:00 03/14/18 10:38 Tamiflu - PO 03/19/18 09:59 30 mg BID [facility] Administration Pantoprazole Sodium 40 mg 03/14/18 10:00 03/14/18 10:32 Protonix - PO 40 mg DAILY [facility] Administration Senna 2 tab 03/14/18 22:00 Senna - PO HS PRN CONSTIPATION Laboratory Tests 03/13/18 03/13/18 03/13/18 09:45 11:27 18:00 WBC Hgb Sodium Potassium 5.7 H Creatinine 2.3 H Random Glucose Urine Protein 1+ H Urine Blood Negative Influenza A (Rapid) Positive A Influenza B (Rapid) Negative 03/14/18 03/14/18 03/14/18 00:45 05:30 05:30 WBC 9.4 Hgb 13.8 Sodium 136 Potassium 4.6 Creatinine 2.3 H 2.0 H Random Glucose 344 H* Urine Protein Urine Blood Influenza A (Rapid) Influenza B (Rapid) Last Vital Signs Temp Pulse Resp BP Pulse Ox 98.2 F 79 18 139/79 96 03/14/18 10:00 03/14/18 10:00 03/14/18 10:00 03/14/18 10:00 03/14/18 09:00 cardio s1s2 pulm on oxygen GI soft ext trace edema neuro awake and alert skin neg rash Impression 1. TAZ 2. CKD 3. Pulmonary fibrosis on Home oxygen 4. SHANTI on CPAP at night 5. Pulmonary HTN 6. CAD s/p HI, 2Stents 7. DM 8. Chol 9. copd Plan - renal function is improving - repeat labs in am - seroids with taper - lasix as needed - avoid nsaids Dr Pool
[2018-03-14] MEDS: ATORVASTATIN CA 20 MG TABLET (FP) PO SCH (21:16)
[2018-03-14] MEDS: INSULIN (LEVEMIR) 100 UNITS/ML UNITS SQ SCH (21:17)
[2018-03-14] MEDS ORDERED: SENNOSIDES 8.6MG TABLET (FP) PO PRN (22:00)
[2018-03-15] MEDS: methylPREDNISolone NA SUCC 40 MG/1 ML VIAL IVPUSH SCH ×3 (01:32→21:05)
[2018-03-15] MEDS: INSULIN (LEVEMIR) 100 UNITS/ML UNITS SQ SCH ×2 (06:55→21:32)
[2018-03-15] MEDS: HEPARIN NA (PORCINE) 5,000 UNITS/ML 1ML VIAL SQ SCH ×3 (06:55→21:04)
[2018-03-15] MEDS: INSULIN SLIDING SCALE (NOVOLOG) 1 VIAL SQ SCH ×4 (06:57→21:32)
[2018-03-15 08:04] LABS: BASO % 0.1 % (0-2.0); HEMATOCRIT 40.8 % (35.4-49); HEMOGLOBIN 13.8 GM/dL (11.7-16.9); LYMPH % 2.1 % (8-40); MCH 31.3 pg (25.7-33.7); MCHC 33.8 g/dl (32.0-35.9); MEAN CELL VOLUME 92.6 fl (80-96); MEAN PLT VOLUME 8.1 fl (7.5-11.1); MONO % 4.2 % (3.8-10.2); NEUT % 93.6 % (42.8-82.8); PLATELET COUNT 147 K/MM3 (134-434); RBC 4.41 M/mm3 (4.00-5.60); RDW 15.1 % (11.9-15.9)
[2018-03-15 08:25] LABS: ALBUMIN 2.7 g/dl (3.4-5.0); ALK PHOS 50 U/L (45-117); ANION GAP 9 MMOL/L (8-16); BILIRUBIN,TOTAL 0.4 mg/dL (0.2-1); BLOOD UREA NITROGEN 43 mg/dL (7-18); CALCIUM 8.5 mg/dL (8.5-10.1); CHLORIDE 107 mmol/L (98-107); CO2 26 mmol/L (21-32); CREATININE 1.5 mg/dL (0.55-1.3); GLUCOSE,RANDOM 140 mg/dL (74-106); MAGNESIUM 2.2 mg/dL (1.8-2.4); POTASSIUM 4.4 mmol/L (3.5-5.1); SGOT/AST 28 U/L (15-37); SGPT/ALT 54 U/L (13-61); SODIUM 141 mmol/L (136-145); TOT PROT 5.6 g/dl (6.4-8.2)
[2018-03-15] MEDS ORDERED: PT OWN MED DRAWER 7, Y5N ONE (09:10)
[2018-03-15] MEDS: ALBUTEROL SO4 2.5/IPRATROPIUM 0.5 INH SOL 3 ML VIAL.NEB. NEB SCH ×4 (09:29→20:40)
[2018-03-15] MEDS: EZETIMIBE 10 MG TABLET (FP) PO SCH (09:36)
[2018-03-15] MEDS: OSELTAMIVIR PHOSPHATE 30 MG CAPSULE PO SCH ×2 (09:36→21:05)
[2018-03-15] MEDS: PANTOPRAZOLE 40 MG TABLET (FP) PO SCH (09:36)
[2018-03-15] MEDS: ASPIRIN 81 MG CHEWABLE TABLETS PO SCH (09:36)
[2018-03-15] MEDS: AZITHROMYCIN IVPB 500 MG/250 ML BAG IVPB SCH (09:37)
[2018-03-15] MEDS ORDERED: methylPREDNISolone NA SUCC 40 MG/1 ML VIAL IVPUSH SCH ×2 (11:15→22:00)
[2018-03-15] MEDS ORDERED: FUROSEMIDE 40 MG/4 ML INJECTABLE VIAL IVPUSH ONE (11:35)
[2018-03-15 11:38] LABS: MACROCYTOSIS 1+; PLATELET ESTIMATE SLT DECREASE
--- NOTE | 2018-03-15 11:38 | PN ---
Physical Exam: SUBJECTIVE: Patient seen and examined, breathing improved, urinating well, overall feels better. No new complaints. OBJECTIVE: Vital Signs Period Temp Pulse Resp BP Sys/Meraz Pulse Ox Last 24 Hr 97.6 F-98.4 F 82-110 18-22 108-155/60-100 96 Intake & Output 03/12/18 03/13/18 03/14/18 03/15/18 23:59 23:59 23:59 23:59 Intake Total 510 1500 100 Output Total 550 2700 Balance -40 -1200 100 Weight 190 lb 193 lb 4 oz 191 lb 6.4 oz GENERAL: sitting in bed, improved tachypnea, able to speak in full sentences Neck: soft, supple, no JVD visualized Chest: bibasilar fine rales, improved air entry Abdomen:Soft, NT, ND, no CVA or suprapubic tenderness Extremities: improved pedal edema Laboratory Results - last 24 hr 03/13/18 03/13/18 03/13/18 12:43 17:07 18:31 WBC RBC Hgb Hct MCV MCH MCHC RDW Plt Count MPV Absolute Neuts (auto) Neutrophils % Neutrophils % (Manual) Band Neutrophils % Lymphocytes % Lymphocytes % (Manual) Monocytes % Monocytes % (Manual) Eosinophils % Eosinophils % (Manual) Basophils % Basophils % (Manual) Myelocytes % (Man) Promyelocytes % (Man) Blast Cells % (Manual) Nucleated RBC % Metamyelocytes Sodium Potassium Chloride Carbon Dioxide Anion Gap BUN Creatinine Creat Clearance w eGFR POC Glucometer 216 425 531 Random Glucose Hemoglobin A1c % Calcium Phosphorus Magnesium Total Bilirubin AST ALT Alkaline Phosphatase Total Protein Albumin 03/13/18 03/13/18 03/14/18 21:19 23:30 05:52 WBC RBC Hgb Hct MCV MCH MCHC RDW Plt Count MPV Absolute Neuts (auto) Neutrophils % Neutrophils % (Manual) Band Neutrophils % Lymphocytes % Lymphocytes % (Manual) Monocytes % Monocytes % (Manual) Eosinophils % Eosinophils % (Manual) Basophils % Basophils % (Manual) Myelocytes % (Man) Promyelocytes % (Man) Blast Cells % (Manual) Nucleated RBC % Metamyelocytes Sodium Potassium Chloride Carbon Dioxide Anion Gap BUN Creatinine Creat Clearance w eGFR POC Glucometer 487 457 282 Random Glucose Hemoglobin A1c % Calcium Phosphorus Magnesium Total Bilirubin AST ALT Alkaline Phosphatase Total Protein Albumin 03/14/18 03/14/18 03/14/18 11:38 16:40 21:20 WBC RBC Hgb Hct MCV MCH MCHC RDW Plt Count MPV Absolute Neuts (auto) Neutrophils % Neutrophils % (Manual) Band Neutrophils % Lymphocytes % Lymphocytes % (Manual) Monocytes % Monocytes % (Manual) Eosinophils % Eosinophils % (Manual) Basophils % Basophils % (Manual) Myelocytes % (Man) Promyelocytes % (Man) Blast Cells % (Manual) Nucleated RBC % Metamyelocytes Sodium Potassium Chloride Carbon Dioxide Anion Gap BUN Creatinine Creat Clearance w eGFR POC Glucometer 368 356 340 Random Glucose Hemoglobin A1c % Calcium Phosphorus Magnesium Total Bilirubin AST ALT Alkaline Phosphatase Total Protein Albumin 03/15/18 03/15/18 03/15/18 05:36 06:00 06:00 WBC 17.0 H RBC 4.41 Hgb 13.8 Hct 40.8 MCV 92.6 MCH 31.3 MCHC 33.8 RDW 15.1 Plt Count 147 MPV 8.1 Absolute Neuts (auto) 15.9 H Neutrophils % 93.6 H Neutrophils % (Manual) 96.0 H Band Neutrophils % 0.0 Lymphocytes % 2.1 L D Lymphocytes % (Manual) 2.0 L D Monocytes % 4.2 Monocytes % (Manual) 2 L D Eosinophils % 0.0 Eosinophils % (Manual) 0.0 Basophils % 0.1 Basophils % (Manual) 0.0 Myelocytes % (Man) 0 Promyelocytes % (Man) 0 Blast Cells % (Manual) 0 Nucleated RBC % 0 Metamyelocytes 0 Sodium 141 Potassium 4.4 Chloride 107 Carbon Dioxide 26 Anion Gap 9 BUN 43 H Creatinine 1.5 H Creat Clearance w eGFR 46.27 POC Glucometer 175 Random Glucose 140 H Hemoglobin A1c % Calcium 8.5 Phosphorus 5.0 H Magnesium 2.2 Total Bilirubin 0.4 AST 28 ALT 54 Alkaline Phosphatase 50 Total Protein 5.6 L Albumin 2.7 L 03/15/18 06:00 WBC RBC Hgb Hct MCV MCH MCHC RDW Plt Count MPV Absolute Neuts (auto) Neutrophils % Neutrophils % (Manual) Band Neutrophils % Lymphocytes % Lymphocytes % (Manual) Monocytes % Monocytes % (Manual) Eosinophils % Eosinophils % (Manual) Basophils % Basophils % (Manual) Myelocytes % (Man) Promyelocytes % (Man) Blast Cells % (Manual) Nucleated RBC % Metamyelocytes Sodium Potassium Chloride Carbon Dioxide Anion Gap BUN Creatinine Creat Clearance w eGFR POC Glucometer Random Glucose Hemoglobin A1c % 8.4 H Calcium Phosphorus Magnesium Total Bilirubin AST ALT Alkaline Phosphatase Total Protein Albumin Active Medications Generic Name Dose Route Start Last Admin Trade Name Marly PRN Reason Stop Dose Admin Albuterol Sulfate 1 amp 03/13/18 13:34 Ventolin 0.083% Nebulizer Soln - NEB Q4H PRN SHORT OF BREATH/WHEEZING Albuterol/Ipratropium 1 amp 03/13/18 16:00 03/15/18 09:29 Duoneb - NEB 1 amp RQID [facility] Administration Aspirin 81 mg 03/14/18 10:00 03/15/18 09:36 Asa - PO 81 mg DAILY [facility] Administration Atorvastatin Calcium 20 mg 03/13/18 22:00 03/14/18 21:16 Lipitor - PO 20 mg HS [facility] Administration Ezetimibe 10 mg 03/14/18 10:00 03/15/18 09:36 Zetia - PO 10 mg DAILY [facility] Administration Furosemide 20 mg 03/15/18 11:35 Lasix Injection - IVPUSH 03/15/18 11:36 ONCE ONE Heparin Sodium (Porcine) 5,000 unit 03/14/18 14:00 03/15/18 06:55 Heparin - SQ 5,000 unit TID [facility] Administration Azithromycin 500 mg in 250 mls @ 250 mls/hr 03/13/18 14:49 03/15/18 09:37 Zithromax 500mg Ivpb (Pre-Docked) IVPB 250 mls/hr DAILY [facility] Administration Insulin Aspart 1 vial 03/14/18 22:00 03/14/18 21:27 Novolog Vial Sliding Scale - SQ 8 units HS [facility] Administration Protocol Insulin Aspart 1 vial 03/14/18 11:00 03/15/18 06:57 Novolog Vial Sliding Scale - SQ 4 units TIDAC [facility] Administration Protocol Insulin Detemir 45 units 03/14/18 22:00 03/14/18 21:17 Levemir Vial SQ 45 units HS [facility] Administration Insulin Detemir 20 units 03/15/18 07:00 03/15/18 06:55 Levemir Vial SQ 20 units AM [facility] Administration Methylprednisolone Sodium Succinate 60 mg 03/15/18 22:00 Solu-Medrol - IVPUSH BID [facility] Metoprolol Succinate 50 mg 03/13/18 22:00 03/14/18 21:16 Toprol Xl - PO 50 mg HS [facility] Administration Oseltamivir Phosphate 30 mg 03/14/18 10:00 03/15/18 09:36 Tamiflu - PO 03/19/18 09:59 30 mg BID [facility] Administration Pantoprazole Sodium 40 mg 03/14/18 10:00 03/15/18 09:36 Protonix - PO 40 mg DAILY [facility] Administration Senna 2 tab 03/14/18 22:00 Senna - PO HS PRN CONSTIPATION Microbiology 03/13/18 09:45 Blood - Peripheral Venous Blood Culture - Preliminary NO GROWTH OBTAINED AFTER 48 HOURS, INCUBATION TO CONTINUE FOR 3 DAYS. 03/13/18 09:30 Blood - Peripheral Venous Blood Culture - Preliminary NO GROWTH OBTAINED AFTER 48 HOURS, INCUBATION TO CONTINUE FOR 3 DAYS. 03/13/18 15:25 Urine For Antigen Detection Legionella Antigen - Final 03/13/18 15:25 Urine For Antigen Detection Streptococcus pneumoniae Antigen (M - Final ASSESSMENT/PLAN: 72 yom with PMhx of COPD, Steroid/oxygen (3L) dependent Pulmonary fibrosis/ILD , SHANTI on CPAP at night, Pulmonary HTN, CKD stage II, LV systolic dysfunction, prior admissions for CHF, CAD s/p VT, 2Stents , T2DM on Insulin, Hypercholesterolemia admitted with acute on chronic hypoxic respiratory failure , Acute influenza A illness. -Acute on chronic hypoxic respiratory failure -Acute Influenza A illness -Sepsis -Leucocytosis, suspect steroid induced given clinical improvement -r/o secondary PNA given immunocompromised state -Acute COPD exacerbation -Acute on chronic diastolic heart failure exacerbation -TAZ on CKD stage II, suspect from above -Hyperkalemia, suspect from TAZ and severe hyperglycemia -Lactic acidosis, suspect from work of breathing+/- sepsis -Steroid/Oxygen dependent Pulmonary Fibrosis -SHANTI on CPAP at night -CAD s/p PCI -LV systolic dysfunction -IDDM Plan: Clinically improved. Tamiflu day 3/5 CT chest with no clear infiltrate. 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 Azithromycin day 3. Slowly taper solumedrol, Standing nebs. Taper oxygen as tolerated. 2D echo results reviewed Volume status, renal function improved. Additional Lasix 20 mg IV x 1 today. Renal input appreciated. Transition to oral lasix in 24-48 hours if continues to improve. Hold ARB. Patient on higher novolog sliding scale at home. Current uncontrolled blood sugars from steroids. Discussed with Dr. Aranda. levemir increased to 20 units qam and 45 units hs. Tighter sliding scale. WBC high but clinically improved, suspect steroid induced, monitor for now. ASA/statin/metoprolol. LE duplex neg for DVT. DVTPPX heparin Code status: full code Dispo pending clinical improvement. PT eval in 24-48 hours as improves. Plan discussed with patient and nursing in detail, all questions answered. Visit type - Emergency Visit Emergency Visit: Yes ED Registration Date: 03/13/18 Care time: The patient presented to the Emergency Department on the above date and was hospitalized for further evaluation of their emergent condition. - New Patient This patient is new to me today: No - Critical Care Critical Care patient: No - Discharge Referral Referred to [facility] No
--- NOTE | 2018-03-15 13:11 | PN ---
Progress Note, Physician History of Present Illness: Pt seen and examined at bedside. He is awake and alert. He complains of cough. He overall feels better. - Current Medication List Current Medications: Active Medications Albuterol Sulfate (Ventolin 0.083% Nebulizer Soln -) 1 amp NEB Q4H PRN PRN Reason: SHORT OF BREATH/WHEEZING Albuterol/Ipratropium (Duoneb -) 1 amp NEB RQID [facility] Last Admin: 03/15/18 13:00 Dose: 1 amp Aspirin (Asa -) 81 mg PO DAILY [facility] Last Admin: 03/15/18 09:36 Dose: 81 mg Atorvastatin Calcium (Lipitor -) 20 mg PO HS [facility] Last Admin: 03/14/18 21:16 Dose: 20 mg Ezetimibe (Zetia -) 10 mg PO DAILY [facility] Last Admin: 03/15/18 09:36 Dose: 10 mg Heparin Sodium (Porcine) (Heparin -) 5,000 unit SQ TID [facility] Last Admin: 03/15/18 13:05 Dose: 5,000 unit Azithromycin (Zithromax 500mg Ivpb (Pre-Docked)) 500 mg in 250 mls @ 250 mls/ hr IVPB DAILY [facility] Last Admin: 03/15/18 09:37 Dose: 250 mls/hr Insulin Aspart (Novolog Vial Sliding Scale -) 1 vial SQ HS [facility]; Protocol Last Admin: 03/14/18 21:27 Dose: 8 units Insulin Aspart (Novolog Vial Sliding Scale -) 1 vial SQ TIDAC [facility]; Protocol Last Admin: 03/15/18 13:04 Dose: 10 units Insulin Detemir (Levemir Vial) 45 units SQ HS [facility] Last Admin: 03/14/18 21:17 Dose: 45 units Insulin Detemir (Levemir Vial) 20 units SQ AM [facility] Last Admin: 03/15/18 06:55 Dose: 20 units Methylprednisolone Sodium Succinate (Solu-Medrol -) 60 mg IVPUSH BID [facility] Metoprolol Succinate (Toprol Xl -) 50 mg PO [facility] Last Admin: 03/14/18 21:16 Dose: 50 mg Oseltamivir Phosphate (Tamiflu -) 30 mg PO BID [facility] Stop: 03/19/18 09:59 Last Admin: 03/15/18 09:36 Dose: 30 mg Pantoprazole Sodium (Protonix -) 40 mg PO DAILY [facility] Last Admin: 03/15/18 09:36 Dose: 40 mg Senna (Senna -) 2 tab PO HS PRN PRN Reason: CONSTIPATION - Objective Vital Signs: Vital Signs Temperature 97.6 F 03/15/18 06:00 Pulse Rate 94 H 03/15/18 10:00 Respiratory Rate 18 03/15/18 10:00 Blood Pressure 123/69 03/15/18 10:00 O2 Sat by Pulse Oximetry (%) 96 03/15/18 10:00 Constitutional: Yes: Calm Eyes: Yes: Conjunctiva Clear HENT: Yes: Atraumatic Neck: Yes: Supple Cardiovascular: Yes: S1, S2 Respiratory: Yes: On Nasal O2, Wheezes Gastrointestinal: Yes: Soft Genitourinary: Yes: WNL Musculoskeletal: Yes: WNL Edema: No Neurological: Yes: Oriented Psychiatric: Yes: Oriented Labs: CBC, BMP 03/15/18 06:00 03/15/18 06:00 INR, PTT INR 1.05 (0.83-1.09) 03/13/18 09:30 Problem List - Problems (1) Influenza A Code(s): J10.1 - FLU DUE TO OTH IDENT INFLUENZA VIRUS W OTH RESP MANIFEST (2) CHF exacerbation Code(s): I50.9 - HEART FAILURE, UNSPECIFIED Qualifiers: Qualified Code(s): I50.9 - Heart failure, unspecified (3) CKD (chronic kidney disease) stage 3, GFR 30-59 ml/min Code(s): N18.3 - CHRONIC KIDNEY DISEASE, STAGE 3 (MODERATE) Assessment/Plan Current Medications Generic Name Dose Route Start Last Admin Trade Name Freq PRN Reason Stop Dose Admin Albuterol Sulfate 1 amp 03/13/18 13:34 Ventolin 0.083% Nebulizer Soln - NEB Q4H PRN SHORT OF BREATH/WHEEZING Albuterol/Ipratropium 1 amp 03/13/18 16:00 03/15/18 13:00 Duoneb - NEB 1 amp RQID [facility] Administration Aspirin 81 mg 03/14/18 10:00 03/15/18 09:36 Asa - PO 81 mg DAILY [facility] Administration Atorvastatin Calcium 20 mg 03/13/18 22:00 03/14/18 21:16 Lipitor - PO 20 mg HS [facility] Administration Ezetimibe 10 mg 03/14/18 10:00 03/15/18 09:36 Zetia - PO 10 mg DAILY [facility] Administration Heparin Sodium (Porcine) 5,000 unit 03/14/18 14:00 03/15/18 13:05 Heparin - SQ 5,000 unit TID [facility] Administration Azithromycin 500 mg in 250 mls @ 250 mls/hr 03/13/18 14:49 03/15/18 09:37 Zithromax 500mg Ivpb (Pre-Docked) IVPB 250 mls/hr DAILY [facility] Administration Insulin Aspart 1 vial 03/14/18 22:00 03/14/18 21:27 Novolog Vial Sliding Scale - SQ 8 units HS [facility] Administration Protocol Insulin Aspart 1 vial 03/14/18 11:00 03/15/18 13:04 Novolog Vial Sliding Scale - SQ 10 units TIDAC [facility] Administration Protocol Insulin Detemir 45 units 03/14/18 22:00 03/14/18 21:17 Levemir Vial SQ 45 units HS [facility] Administration Insulin Detemir 20 units 03/15/18 07:00 03/15/18 06:55 Levemir Vial SQ 20 units AM [facility] Administration Methylprednisolone Sodium Succinate 60 mg 03/15/18 22:00 Solu-Medrol - IVPUSH BID [facility] Metoprolol Succinate 50 mg 03/13/18 22:00 03/14/18 21:16 Toprol Xl - PO 50 mg HS [facility] Administration Oseltamivir Phosphate 30 mg 03/14/18 10:00 03/15/18 09:36 Tamiflu - PO 03/19/18 09:59 30 mg BID [facility] Administration Pantoprazole Sodium 40 mg 03/14/18 10:00 03/15/18 09:36 Protonix - PO 40 mg DAILY [facility] Administration Senna 2 tab 03/14/18 22:00 Senna - PO HS PRN CONSTIPATION Impression 1. TAZ 2. CKD 3. Pulmonary fibrosis on Home oxygen 4. SHANTI on CPAP at night 5. Pulmonary HTN 6. CAD s/p OK, 2Stents 7. DM 8. Chol 9. copd Plan - renal function is stable - cont current meds - diuretics as needed - seroids with taper - avoid nsaids - pt will follow with Dr Boswell after discharge
--- NOTE | 2018-03-15 15:45 | PN ---
Progress Note (short form) - Note Progress Note: PULMONARY States breathing better. Still with nonproductive cough. Saturating well on ventimask 40%. Vital Signs Period Temp Pulse Resp BP Sys/Meraz Pulse Ox Last 24 Hr 97.6 F-98.4 F 82-110 18-20 108-151/60-82 96-96 Gen: mildly tachypneic with speaking Heart: RRR Lung: scattered rhonchi Abd: soft, nontender Ext: less edema CBC, BMP 03/15/18 06:00 03/15/18 06:00 Active Medications Albuterol Sulfate (Ventolin 0.083% Nebulizer Soln -) 1 amp NEB Q4H PRN PRN Reason: SHORT OF BREATH/WHEEZING Albuterol/Ipratropium (Duoneb -) 1 amp NEB RQID [facility] Last Admin: 03/15/18 13:00 Dose: 1 amp Aspirin (Asa -) 81 mg PO DAILY [facility] Last Admin: 03/15/18 09:36 Dose: 81 mg Atorvastatin Calcium (Lipitor -) 20 mg PO HS [facility] Last Admin: 03/14/18 21:16 Dose: 20 mg Ezetimibe (Zetia -) 10 mg PO DAILY [facility] Last Admin: 03/15/18 09:36 Dose: 10 mg Heparin Sodium (Porcine) (Heparin -) 5,000 unit SQ TID [facility] Last Admin: 03/15/18 13:05 Dose: 5,000 unit Azithromycin (Zithromax 500mg Ivpb (Pre-Docked)) 500 mg in 250 mls @ 250 mls/ hr IVPB DAILY [facility] Last Admin: 03/15/18 09:37 Dose: 250 mls/hr Insulin Aspart (Novolog Vial Sliding Scale -) 1 vial SQ HS [facility]; Protocol Last Admin: 03/14/18 21:27 Dose: 8 units Insulin Aspart (Novolog Vial Sliding Scale -) 1 vial SQ TIDAC [facility]; Protocol Last Admin: 03/15/18 13:04 Dose: 10 units Insulin Detemir (Levemir Vial) 45 units SQ HS [facility] Last Admin: 03/14/18 21:17 Dose: 45 units Insulin Detemir (Levemir Vial) 20 units SQ AM [facility] Last Admin: 03/15/18 06:55 Dose: 20 units Methylprednisolone Sodium Succinate (Solu-Medrol -) 60 mg IVPUSH BID [facility] Metoprolol Succinate (Toprol Xl -) 50 mg PO HS [facility] Last Admin: 03/14/18 21:16 Dose: 50 mg Oseltamivir Phosphate (Tamiflu -) 30 mg PO BID [facility] Stop: 03/19/18 09:59 Last Admin: 03/15/18 09:36 Dose: 30 mg Pantoprazole Sodium (Protonix -) 40 mg PO DAILY [facility] Last Admin: 03/15/18 09:36 Dose: 40 mg Senna (Senna -) 2 tab PO HS PRN PRN Reason: CONSTIPATION A/P Acute on Chronic Hypoxic Respiratory Failure Influenza A Sepsis r/o Pneumonia Acute on Chronic Renal Failure Lactic Acidosis Interstitial Lung Disease COPD CAD LV Systolic Dysfunction HTN DM SHANTI - continue tamiflu - empiric azithromycin - medrol taper - inhaled bronchodilators - taper O2 to keep SpO2 >90%, place on nasal cannula - cough suppressant - monitor urine output, creatinine - glucose control while on systemic steroids - DVT prophylaxis Problem List - Problems (1) Acute and chronic respiratory failure with hypoxia Code(s): J96.21 - ACUTE AND CHRONIC RESPIRATORY FAILURE WITH HYPOXIA (2) Influenza A Code(s): J10.1 - FLU DUE TO OTH IDENT INFLUENZA VIRUS W OTH RESP MANIFEST (3) Sepsis Code(s): A41.9 - SEPSIS, UNSPECIFIED ORGANISM (4) Lactic acidosis Code(s): E87.2 - ACIDOSIS (5) [id number] kidney injury Code(s): N17.9 - ACUTE KIDNEY FAILURE, UNSPECIFIED; N18.9 - CHRONIC KIDNEY DISEASE, UNSPECIFIED Qualifiers: Acute renal failure type: unspecified Chronic kidney disease stage: unspecified stage Qualified Code(s): N17.9 - Acute kidney failure, unspecified ; N18.9 - Chronic kidney disease, unspecified; N18.9 - Chronic kidney disease, unspecified (6) CAD (coronary artery disease) Code(s): I25.10 - ATHSCL HEART DISEASE OF [place] CORONARY ARTERY W/O ANG PCTRS Qualifiers: [place] vs. transplanted heart: [place] heart Associated angina: without angina (7) COPD (chronic obstructive pulmonary disease) Code(s): J44.9 - CHRONIC OBSTRUCTIVE PULMONARY DISEASE, UNSPECIFIED (8) Diabetes mellitus Code(s): E11.9 - TYPE 2 DIABETES MELLITUS WITHOUT COMPLICATIONS Qualifiers: Diabetes mellitus type: type 2 Diabetes mellitus fundraising director insulin use: with usp use Diabetes mellitus complication status: with kidney complications Diabetes mellitus complication detail: with chronic kidney disease Chronic kidney disease stage: stage 3 (moderate) Qualified Code(s): E11.22 - Type 2 diabetes mellitus with diabetic chronic kidney disease; N18.3 - Chronic kidney disease, stage 3 (moderate); Z79.4 - cost recovery technician (current) use of insulin (9) HTN (hypertension) Code(s): I10 - ESSENTIAL (PRIMARY) HYPERTENSION Qualifiers: Hypertension type: essential hypertension Qualified Code(s): I10 - Essential (primary) hypertension (10) Pulmonary fibrosis Code(s): J84.10 - PULMONARY FIBROSIS, UNSPECIFIED (11) Sleep apnea Code(s): G47.30 - SLEEP APNEA, UNSPECIFIED
[2018-03-15] MEDS: guaiFENesin/CODEINE 5 ML UNIT-DOSE CUPS PO PRN ×2 (15:55→21:32)
[2018-03-15] MEDS: ATORVASTATIN CA 20 MG TABLET (FP) PO SCH (21:04)
[2018-03-16] MEDS: HEPARIN NA (PORCINE) 5,000 UNITS/ML 1ML VIAL SQ SCH ×3 (05:44→21:06)
[2018-03-16 06:19] LABS: HEMATOCRIT 39.5 % (35.4-49); LYMPH % 2.8 % (8-40); MCH 30.7 pg (25.7-33.7); MCHC 32.9 g/dl (32.0-35.9); MEAN CELL VOLUME 93.1 fl (80-96); MEAN PLT VOLUME 8.1 fl (7.5-11.1); MONO % 4.8 % (3.8-10.2); NEUT % 92.4 % (42.8-82.8); PLATELET COUNT 128 K/MM3 (134-434); RBC 4.24 M/mm3 (4.00-5.60); RDW 15.1 % (11.9-15.9); WHITE BLOOD COUNT 15.7 K/mm3 (4.0-10.0)
[2018-03-16] MEDS: INSULIN SLIDING SCALE (NOVOLOG) 1 VIAL SQ SCH ×4 (06:42→21:09)
[2018-03-16] MEDS: INSULIN (LEVEMIR) 100 UNITS/ML UNITS SQ SCH ×2 (06:42→21:06)
[2018-03-16 06:56] LABS: ANION GAP 8 MMOL/L (8-16); BLOOD UREA NITROGEN 44 mg/dL (7-18); CALCIUM 8.9 mg/dL (8.5-10.1); CHLORIDE 103 mmol/L (98-107); CO2 28 mmol/L (21-32); CREATININE 1.4 mg/dL (0.55-1.3); GLUCOSE,RANDOM 167 mg/dL (74-106); MAGNESIUM 2.3 mg/dL (1.8-2.4); PHOSPHOROUS 4.2 mg/dL (2.5-4.9); POTASSIUM 4.3 mmol/L (3.5-5.1); SODIUM 139 mmol/L (136-145)
[2018-03-16] MEDS: ASPIRIN 81 MG CHEWABLE TABLETS PO SCH (09:08)
[2018-03-16] MEDS: PANTOPRAZOLE 40 MG TABLET (FP) PO SCH (09:08)
[2018-03-16] MEDS: OSELTAMIVIR PHOSPHATE 30 MG CAPSULE PO SCH ×2 (09:08→21:08)
[2018-03-16] MEDS: EZETIMIBE 10 MG TABLET (FP) PO SCH (09:09)
[2018-03-16] MEDS: AZITHROMYCIN IVPB 500 MG/250 ML BAG IVPB SCH (09:09)
[2018-03-16] MEDS: ALBUTEROL SO4 2.5/IPRATROPIUM 0.5 INH SOL 3 ML VIAL.NEB. NEB SCH ×4 (09:59→20:37)
--- NOTE | 2018-03-16 10:25 | PN ---
Physical Exam: SUBJECTIVE: Patient seen and examined, breathing markedly improved. Urinating a lot, feels well. eager to walk OBJECTIVE: Vital Signs Period Temp Pulse Resp BP Sys/Meraz Pulse Ox Last 24 Hr 97.2 F-97.8 F 73-96 18-20 136-149/71-101 100-100 Intake & Output 03/13/18 03/14/18 03/15/18 03/16/18 23:59 23:59 23:59 23:59 Intake Total 510 1500 590 120 Output Total 550 2700 Balance -40 -1200 590 120 Weight 190 lb 193 lb 4 oz 191 lb 6.4 oz 190 lb GENERAL: The patient is awake, alert, and fully oriented, in no acute distress, no use of accessory muscles. HEAD: Normal with no signs of trauma. EYES: PERRL, extraocular movements intact, sclera anicteric, conjunctiva clear. No ptosis. ENT: Ears normal, nares patent, oropharynx clear without exudates, moist mucous membranes. NECK: Trachea midline, full range of motion, supple. LUNGS: improved air entry, no wheezing fine bibasilar rales HEART: Regular rate and rhythm, S1, S2 without murmur, rub or gallop. ABDOMEN: Soft, nontender, nondistended, normoactive bowel sounds, no guarding, no rebound EXTREMITIES: markedly improved pedal edema PSYCH: Normal mood, normal affect. SKIN: Warm, dry, normal turgor, no rashes or lesions noted Laboratory Results - last 24 hr 03/15/18 03/15/18 03/15/18 06:00 13:00 21:08 WBC RBC Hgb Hct MCV MCH MCHC RDW Plt Count MPV Absolute Neuts (auto) Neutrophils % Neutrophils % (Manual) 96.0 H Band Neutrophils % 0.0 Lymphocytes % Lymphocytes % (Manual) 2.0 L D Monocytes % Monocytes % (Manual) 2 L D Eosinophils % Eosinophils % (Manual) 0.0 Basophils % Basophils % (Manual) 0.0 Myelocytes % (Man) 0 Promyelocytes % (Man) 0 Blast Cells % (Manual) 0 Nucleated RBC % 0 Metamyelocytes 0 Platelet Estimate Slt decrease Polychromasia 1+ Macrocytosis 1+ Sodium Potassium Chloride Carbon Dioxide Anion Gap BUN Creatinine Creat Clearance w eGFR POC Glucometer 244 281 Random Glucose Calcium Phosphorus Magnesium 0103/16/18 03/16/18 05:25 05:25 05:43 WBC 15.7 H RBC 4.24 Hgb 13.0 Hct 39.5 MCV 93.1 MCH 30.7 MCHC 32.9 RDW 15.1 Plt Count 128 L MPV 8.1 Absolute Neuts (auto) 14.5 H Neutrophils % 92.4 H Neutrophils % (Manual) Band Neutrophils % Lymphocytes % 2.8 L D Lymphocytes % (Manual) Monocytes % 4.8 Monocytes % (Manual) Eosinophils % 0.0 Eosinophils % (Manual) Basophils % 0.0 Basophils % (Manual) Myelocytes % (Man) Promyelocytes % (Man) Blast Cells % (Manual) Nucleated RBC % 0 Metamyelocytes Platelet Estimate Polychromasia Macrocytosis Sodium 139 Potassium 4.3 Chloride 103 Carbon Dioxide 28 Anion Gap 8 BUN 44 H Creatinine 1.4 H Creat Clearance w eGFR 50.10 POC Glucometer 156 Random Glucose 167 H Calcium 8.9 Phosphorus 4.2 Magnesium 2.3 Active Medications Generic Name Dose Route Start Last Admin Trade Name Freq PRN Reason Stop Dose Admin Albuterol Sulfate 1 amp 03/13/18 13:34 Ventolin 0.083% Nebulizer Soln - NEB Q4H PRN SHORT OF BREATH/WHEEZING Albuterol/Ipratropium 1 amp 03/13/18 16:00 03/16/18 09:59 Duoneb - NEB 1 amp RQID [facility] Administration Aspirin 81 mg 03/14/18 10:00 03/16/18 09:08 Asa - PO 81 mg DAILY [facility] Administration Atorvastatin Calcium 20 mg 03/13/18 22:00 03/15/18 21:04 Lipitor - PO 20 mg HS [facility] Administration Ezetimibe 10 mg 03/14/18 10:00 03/16/18 09:09 Zetia - PO 10 mg DAILY [facility] Administration Furosemide 40 mg 03/16/18 10:15 Lasix - PO DAILY [facility] Guaifenesin/Codeine Phosphate 5 ml 03/15/18 15:46 03/15/18 21:32 Robitussin Ac - PO 5 ml TID PRN Administration COUGH Heparin Sodium (Porcine) 5,000 unit 03/14/18 14:00 03/16/18 05:44 Heparin - SQ 5,000 unit TID [facility] Administration Azithromycin 500 mg in 250 mls @ 250 mls/hr 03/13/18 14:49 03/16/18 09:09 Zithromax 500mg Ivpb (Pre-Docked) IVPB 250 mls/hr DAILY [facility] Administration Insulin Aspart 1 vial 03/14/18 22:00 03/15/18 21:32 Novolog Vial Sliding Scale - SQ 6 units HS [facility] Administration Protocol Insulin Aspart 1 vial 03/14/18 11:00 03/16/18 06:42 Novolog Vial Sliding Scale - SQ 4 units TIDAC [facility] Administration Protocol Insulin Detemir 45 units 03/14/18 22:00 03/15/18 21:32 Levemir Vial SQ 45 units HS [facility] Administration Insulin Detemir 20 units 03/15/18 07:00 03/16/18 06:42 Levemir Vial SQ 20 units AM [facility] Administration Methylprednisolone Sodium Succinate 60 mg 03/15/18 22:00 03/15/18 21:05 Solu-Medrol - IVPUSH 60 mg BID [facility] Administration Metoprolol Succinate 50 mg 03/13/18 22:00 03/15/18 21:04 Toprol Xl - PO 50 mg HS [facility] Administration Oseltamivir Phosphate 30 mg 03/14/18 10:00 03/16/18 09:08 Tamiflu - PO 03/19/18 09:59 30 mg BID [facility] Administration Pantoprazole Sodium 40 mg 03/14/18 10:00 03/16/18 09:08 Protonix - PO 40 mg DAILY [facility] Administration Senna 2 tab 03/14/18 22:00 Senna - PO HS PRN CONSTIPATION Microbiology 03/13/18 09:45 Blood - Peripheral Venous Blood Culture - Preliminary NO GROWTH OBTAINED AFTER 72 HOURS, INCUBATION TO CONTINUE FOR 2 DAYS. 03/13/18 09:30 Blood - Peripheral Venous Blood Culture - Preliminary NO GROWTH OBTAINED AFTER 72 HOURS, INCUBATION TO CONTINUE FOR 2 DAYS. 03/13/18 15:25 Urine For Antigen Detection Legionella Antigen - Final 03/13/18 15:25 Urine For Antigen Detection Streptococcus pneumoniae Antigen (M - Final ASSESSMENT/PLAN: 72 yom with PMhx of COPD, Steroid/oxygen (3L) dependent Pulmonary fibrosis/ILD , SHANTI on CPAP at night, Pulmonary HTN, CKD stage II, LV systolic dysfunction, prior admissions for CHF, CAD s/p NM, 2Stents , T2DM on Insulin, Hypercholesterolemia admitted with acute on chronic hypoxic respiratory failure , Acute influenza A illness. -Acute on chronic hypoxic respiratory failure -Acute Influenza A illness -Sepsis -Leucocytosis, suspect steroid induced given clinical improvement -r/o secondary PNA given immunocompromised state -Acute COPD exacerbation -Acute on chronic diastolic heart failure exacerbation -TAZ on CKD stage II, suspect from above -Hyperkalemia, suspect from ATZ and severe hyperglycemia -Lactic acidosis, suspect from work of breathing+/- sepsis -Steroid/Oxygen dependent Pulmonary Fibrosis -SHANTI on CPAP at night -CAD s/p PCI -LV systolic dysfunction -IDDM Plan: Clinically improved. Tamiflu day 4 CT chest with no clear infiltrate. zosyn d/endband cutter hand. Azithromycin day 05/30, change to PO. Taper solumedrol, change to PO in AM if continues to improve. Standing and prn nebs. 2D echo results reviewed Volume status, renal function improved,responding well to diuresis. Start lasix 40 mg daily. Resume ARB. Patient on higher novolog sliding scale at home. Current uncontrolled blood sugars from steroids. Discussed with Dr. Aranda. levemir increased to 20 units qam and 45 units hs. Tighter sliding scale. WBC high but clinically improved, suspect steroid induced, monitor for now. ASA/statin/metoprolol. LE duplex neg for DVT. DVTPPX heparin Code status: full code Dispo pending clinical improvement. PT eval and ambulatory oxygen assessment. Anticipate d/c home with services in 24-48 hours if continues to improve Plan discussed with patient, CM and nursing in detail, all questions answered. Visit type - Emergency Visit Emergency Visit: Yes ED Registration Date: 03/13/18 Care time: The patient presented to the Emergency Department on the above date and was hospitalized for further evaluation of their emergent condition. - New Patient This patient is new to me today: No - Critical Care Critical Care patient: No - Discharge Referral Referred to [facility] Med P.C.: No
[2018-03-16] MEDS: methylPREDNISolone NA SUCC 40 MG/1 ML VIAL IVPUSH SCH (10:55)
[2018-03-16] MEDS: FUROSEMIDE 40 MG TABLET (FP) PO SCH (11:24)
--- NOTE | 2018-03-16 12:45 | PN ---
Progress Note (short form) - Note Progress Note: PULMONARY States breathing continues to improve. coughing less. Saturating well on nasal cannula. Vital Signs Period Temp Pulse Resp BP Sys/Meraz Pulse Ox Last 24 Hr 97.2 F-97.8 F 64-96 18-20 136-149/71-101 100-100 Gen: mildly tachypneic with speaking Heart: RRR Lung: scattered rhonchi Abd: soft, nontender Ext: less edema CBC, BMP 03/16/18 05:25 03/16/18 05:25 Active Medications Albuterol Sulfate (Ventolin 0.083% Nebulizer Soln -) 1 amp NEB Q4H PRN PRN Reason: SHORT OF BREATH/WHEEZING Albuterol/Ipratropium (Duoneb -) 1 amp NEB RQID [facility] Last Admin: 03/16/18 09:59 Dose: 1 amp Aspirin (Asa -) 81 mg PO DAILY [facility] Last Admin: 03/16/18 09:08 Dose: 81 mg Atorvastatin Calcium (Lipitor -) 20 mg PO HS [facility] Last Admin: 03/15/18 21:04 Dose: 20 mg Azithromycin (Zithromax -) 500 mg PO ONCE ONE Stop: 03/17/18 09:01 Ezetimibe (Zetia -) 10 mg PO DAILY [facility] Last Admin: 03/16/18 09:09 Dose: 10 mg Furosemide (Lasix -) 40 mg PO DAILY [facility] Last Admin: 03/16/18 11:24 Dose: 40 mg Guaifenesin/Codeine Phosphate (Robitussin Ac -) 5 ml PO TID PRN PRN Reason: COUGH Last Admin: 03/15/18 21:32 Dose: 5 ml Heparin Sodium (Porcine) (Heparin -) 5,000 unit SQ TID [facility] Last Admin: 03/16/18 05:44 Dose: 5,000 unit Insulin Aspart (Novolog Vial Sliding Scale -) 1 vial SQ HS [facility]; Protocol Last Admin: 03/15/18 21:32 Dose: 6 units Insulin Aspart (Novolog Vial Sliding Scale -) 1 vial SQ TIDAC [facility]; Protocol Last Admin: 03/16/18 11:28 Dose: Not Given Insulin Detemir (Levemir Vial) 45 units SQ HS [facility] Last Admin: 03/15/18 21:32 Dose: 45 units Insulin Detemir (Levemir Vial) 20 units SQ AM [facility] Last Admin: 03/16/18 06:42 Dose: 20 units Metoprolol Succinate (Toprol Xl -) 50 mg PO HS [facility] Last Admin: 03/15/18 21:04 Dose: 50 mg Oseltamivir Phosphate (Tamiflu -) 30 mg PO BID [facility] Stop: 03/19/18 09:59 Last Admin: 03/16/18 09:08 Dose: 30 mg Pantoprazole Sodium (Protonix -) 40 mg PO DAILY [facility] Last Admin: 03/16/18 09:08 Dose: 40 mg Prednisone (Deltasone -) 60 mg PO DAILY [facility] Senna (Senna -) 2 tab PO HS PRN PRN Reason: CONSTIPATION A/P Acute on Chronic Hypoxic Respiratory Failure Influenza A Sepsis r/o Pneumonia Acute on Chronic Renal Failure Lactic Acidosis Interstitial Lung Disease COPD CAD LV Systolic Dysfunction HTN DM SHANTI - continue tamiflu - empiric azithromycin - prednisone taper - inhaled bronchodilators - taper O2 to keep SpO2 >90%, place on nasal cannula - cough suppressant - monitor urine output, creatinine - glucose control while on systemic steroids - DVT prophylaxis - pulmonary rehab as outpt Problem List - Problems (1) Acute and chronic respiratory failure with hypoxia Code(s): J96.21 - ACUTE AND CHRONIC RESPIRATORY FAILURE WITH HYPOXIA (2) Influenza A Code(s): J10.1 - FLU DUE TO OTH IDENT INFLUENZA VIRUS W OTH RESP MANIFEST (3) Sepsis Code(s): A41.9 - SEPSIS, UNSPECIFIED ORGANISM (4) Lactic acidosis Code(s): E87.2 - ACIDOSIS (5) [id number] kidney injury Code(s): N17.9 - ACUTE KIDNEY FAILURE, UNSPECIFIED; N18.9 - CHRONIC KIDNEY DISEASE, UNSPECIFIED Qualifiers: Acute renal failure type: unspecified Chronic kidney disease stage: unspecified stage Qualified Code(s): N17.9 - Acute kidney failure, unspecified ; N18.9 - Chronic kidney disease, unspecified; N18.9 - Chronic kidney disease, unspecified (6) CAD (coronary artery disease) Code(s): I25.10 - ATHSCL HEART DISEASE OF [place] CORONARY ARTERY W/O ANG PCTRS Qualifiers: [place] vs. transplanted heart: [place] heart Associated angina: without angina (7) COPD (chronic obstructive pulmonary disease) Code(s): J44.9 - CHRONIC OBSTRUCTIVE PULMONARY DISEASE, UNSPECIFIED (8) Diabetes mellitus Code(s): E11.9 - TYPE 2 DIABETES MELLITUS WITHOUT COMPLICATIONS Qualifiers: Diabetes mellitus type: type 2 Diabetes mellitus director long term care insulin use: with director long term care use Diabetes mellitus complication status: with kidney complications Diabetes mellitus complication detail: with chronic kidney disease Chronic kidney disease stage: stage 3 (moderate) Qualified Code(s): E11.22 - Type 2 diabetes mellitus with diabetic chronic kidney disease; N18.3 - Chronic kidney disease, stage 3 (moderate); Z79.4 - custodial (current) use of insulin (9) HTN (hypertension) Code(s): I10 - ESSENTIAL (PRIMARY) HYPERTENSION Qualifiers: Hypertension type: essential hypertension Qualified Code(s): I10 - Essential (primary) hypertension (10) Pulmonary fibrosis Code(s): J84.10 - PULMONARY FIBROSIS, UNSPECIFIED (11) Sleep apnea Code(s): G47.30 - SLEEP APNEA, UNSPECIFIED
[2018-03-16 17:14] LABS: PLATELET ESTIMATE SLT DECREASE
[2018-03-16 17:15] LABS: ANISOCYTOSIS 1+
--- NOTE | 2018-03-16 17:44 | PN ---
Progress Note, Physician History of Present Illness: Pt seen and examined at bedside. He is awake and alert. He feels that his cough is getting better. - Current Medication List Current Medications: Active Medications Albuterol Sulfate (Ventolin 0.083% Nebulizer Soln -) 1 amp NEB Q4H PRN PRN Reason: SHORT OF BREATH/WHEEZING Albuterol/Ipratropium (Duoneb -) 1 amp NEB RQID [facility] Last Admin: 03/16/18 13:08 Dose: 1 amp Aspirin (Asa -) 81 mg PO DAILY [facility] Last Admin: 03/16/18 09:08 Dose: 81 mg Atorvastatin Calcium (Lipitor -) 20 mg PO HS [facility] Last Admin: 03/15/18 21:04 Dose: 20 mg Azithromycin (Zithromax -) 500 mg PO ONCE ONE Stop: 03/17/18 09:01 Ezetimibe (Zetia -) 10 mg PO DAILY [facility] Last Admin: 03/16/18 09:09 Dose: 10 mg Furosemide (Lasix -) 40 mg PO DAILY [facility] Last Admin: 03/16/18 11:24 Dose: 40 mg Guaifenesin/Codeine Phosphate (Robitussin Ac -) 5 ml PO TID PRN PRN Reason: COUGH Last Admin: 03/15/18 21:32 Dose: 5 ml Heparin Sodium (Porcine) (Heparin -) 5,000 unit SQ TID [facility] Last Admin: 03/16/18 13:51 Dose: 5,000 unit Insulin Aspart (Novolog Vial Sliding Scale -) 1 vial SQ HS [facility]; Protocol Last Admin: 03/15/18 21:32 Dose: 6 units Insulin Aspart (Novolog Vial Sliding Scale -) 1 vial SQ TIDAC [facility]; Protocol Last Admin: 03/16/18 17:16 Dose: 10 units Insulin Detemir (Levemir Vial) 45 units SQ HS [facility] Last Admin: 03/15/18 21:32 Dose: 45 units Insulin Detemir (Levemir Vial) 20 units SQ AM [facility] Last Admin: 03/16/18 06:42 Dose: 20 units Metoprolol Succinate (Toprol Xl -) 50 mg PO HS [facility] Last Admin: 03/15/18 21:04 Dose: 50 mg Oseltamivir Phosphate (Tamiflu -) 30 mg PO BID [facility] Stop: 03/19/18 09:59 Last Admin: 03/16/18 09:08 Dose: 30 mg Pantoprazole Sodium (Protonix -) 40 mg PO DAILY [facility] Last Admin: 03/16/18 09:08 Dose: 40 mg Prednisone (Deltasone -) 60 mg PO DAILY [facility] Senna (Senna -) 2 tab PO HS PRN PRN Reason: CONSTIPATION - Objective Vital Signs: Vital Signs Temperature 97.3 F L 03/16/18 16:25 Pulse Rate 105 H 03/16/18 16:25 Respiratory Rate 20 03/16/18 16:25 Blood Pressure 133/78 03/16/18 16:25 O2 Sat by Pulse Oximetry (%) 93 L 03/16/18 13:04 Constitutional: Yes: Calm Eyes: Yes: Conjunctiva Clear HENT: Yes: Atraumatic Neck: Yes: Supple Cardiovascular: Yes: S1, S2 Respiratory: Yes: On Nasal O2, Wheezes Gastrointestinal: Yes: Soft Genitourinary: Yes: WNL Musculoskeletal: Yes: WNL Edema: LLE: Trace, RLE: Trace Neurological: Yes: Oriented Psychiatric: Yes: Oriented Labs: CBC, BMP 03/16/18 05:25 03/16/18 05:25 INR, PTT INR 1.05 (0.83-1.09) 03/13/18 09:30 Problem List - Problems (1) Influenza A Code(s): J10.1 - FLU DUE TO OTH IDENT INFLUENZA VIRUS W OTH RESP MANIFEST (2) CHF exacerbation Code(s): I50.9 - HEART FAILURE, UNSPECIFIED Qualifiers: Qualified Code(s): I50.9 - Heart failure, unspecified (3) CKD (chronic kidney disease) stage 3, GFR 30-59 ml/min Code(s): N18.3 - CHRONIC KIDNEY DISEASE, STAGE 3 (MODERATE) Assessment/Plan Current Medications Generic Name Dose Route Start Last Admin Trade Name Freq PRN Reason Stop Dose Admin Albuterol Sulfate 1 amp 03/13/18 13:34 Ventolin 0.083% Nebulizer Soln - NEB Q4H PRN SHORT OF BREATH/WHEEZING Albuterol/Ipratropium 1 amp 03/13/18 16:00 03/16/18 13:08 Duoneb - NEB 1 amp RQID [facility] Administration Aspirin 81 mg 03/14/18 10:00 03/16/18 09:08 Asa - PO 81 mg DAILY [facility] Administration Atorvastatin Calcium 20 mg 03/13/18 22:00 03/15/18 21:04 Lipitor - PO 20 mg HS [facility] Administration Azithromycin 500 mg 03/17/18 09:00 Zithromax - PO 03/17/18 09:01 ONCE ONE Ezetimibe 10 mg 03/14/18 10:00 03/16/18 09:09 Zetia - PO 10 mg DAILY [facility] Administration Furosemide 40 mg 03/16/18 10:15 03/16/18 11:24 Lasix - PO 40 mg DAILY [facility] Administration Guaifenesin/Codeine Phosphate 5 ml 03/15/18 15:46 03/15/18 21:32 Robitussin Ac - PO 5 ml TID PRN Administration COUGH Heparin Sodium (Porcine) 5,000 unit 03/14/18 14:00 03/16/18 13:51 Heparin - SQ 5,000 unit TID [facility] Administration Insulin Aspart 1 vial 03/14/18 22:00 03/15/18 21:32 Novolog Vial Sliding Scale - SQ 6 units HS [facility] Administration Protocol Insulin Aspart 1 vial 03/14/18 11:00 03/16/18 17:16 Novolog Vial Sliding Scale - SQ 10 units TIDAC [facility] Administration Protocol Insulin Detemir 45 units 03/14/18 22:00 03/15/18 21:32 Levemir Vial SQ 45 units HS [facility] Administration Insulin Detemir 20 units 03/15/18 07:00 03/16/18 06:42 Levemir Vial SQ 20 units AM [facility] Administration Metoprolol Succinate 50 mg 03/13/18 22:00 03/15/18 21:04 Toprol Xl - PO 50 mg HS [facility] Administration Oseltamivir Phosphate 30 mg 03/14/18 10:00 03/16/18 09:08 Tamiflu - PO 03/19/18 09:59 30 mg BID [facility] Administration Pantoprazole Sodium 40 mg 03/14/18 10:00 03/16/18 09:08 Protonix - PO 40 mg DAILY [facility] Administration Prednisone 60 mg 03/17/18 10:00 Deltasone - PO DAILY [facility] Senna 2 tab 03/14/18 22:00 Senna - PO HS PRN CONSTIPATION Impression 1. TAZ 2. CKD 3. Pulmonary fibrosis on Home oxygen 4. SHANTI on CPAP at night 5. Pulmonary HTN 6. CAD s/p DC, 2Stents 7. DM 8. Chol 9. copd Plan - cont with po lasix - renal function is improving - seroids with taper - avoid nsaids - pt will follow with Dr Boswell after discharge
[2018-03-16] MEDS ORDERED: PT OWN MED DRAWER 7, Y5N ONE (19:27)
[2018-03-16] MEDS: ATORVASTATIN CA 20 MG TABLET (FP) PO SCH (21:07)
[2018-03-17] MEDS: HEPARIN NA (PORCINE) 5,000 UNITS/ML 1ML VIAL SQ SCH ×2 (06:26→14:05)
[2018-03-17] MEDS: INSULIN SLIDING SCALE (NOVOLOG) 1 VIAL SQ SCH ×2 (07:08→11:57)
[2018-03-17 07:19] LABS: BASO % 0.2 % (0-2.0); EOS % 0.1 % (0-4.5); HEMATOCRIT 39.9 % (35.4-49); HEMOGLOBIN 13.3 GM/dL (11.7-16.9); LYMPH % 4.4 % (8-40); MCHC 33.4 g/dl (32.0-35.9); MEAN CELL VOLUME 92.8 fl (80-96); MEAN PLT VOLUME 8.1 fl (7.5-11.1); MONO % 7.7 % (3.8-10.2); NEUT % 87.6 % (42.8-82.8); PLATELET COUNT 129 K/MM3 (134-434); RDW 15.3 % (11.9-15.9); WHITE BLOOD COUNT 15.1 K/mm3 (4.0-10.0)
[2018-03-17 07:36] LABS: ANION GAP 8 MMOL/L (8-16); BLOOD UREA NITROGEN 44 mg/dL (7-18); CALCIUM 8.7 mg/dL (8.5-10.1); CHLORIDE 104 mmol/L (98-107); CO2 28 mmol/L (21-32); CREATININE 1.3 mg/dL (0.55-1.3); GLUCOSE,RANDOM 74 mg/dL (74-106); MAGNESIUM 2.1 mg/dL (1.8-2.4); PHOSPHOROUS 4.3 mg/dL (2.5-4.9); SODIUM 140 mmol/L (136-145)
[2018-03-17] MEDS: ALBUTEROL SO4 2.5/IPRATROPIUM 0.5 INH SOL 3 ML VIAL.NEB. NEB SCH ×2 (08:00→11:55)
--- NOTE | 2018-03-17 08:29 | PN ---
Physical Exam: SUBJECTIVE: Patient seen and examined by me at bedside. No acute events overnight Patient reports feeling much better and states at baseline with his respiratory status However, patient reports having watery diarrhea with an episode this morning. Patient however is eating food from the hospital and outside food as well. Otherwise, denies any fever, chills, nausea, vomiting, abdominal pain, chest pain, palpitations, headaches, acute vision changes, urinary symptoms. OBJECTIVE: Vital Signs Period Temp Pulse Resp BP Sys/Meraz Pulse Ox Last 24 Hr 97.3 F-98.0 F 64-105 20-22 133-151/77-96 93-93 GENERAL: Awake, alert, and fully oriented, in mild respiratory distress EYES: Sclera anicteric, Left eye conjunctivitis. ENT: Oropharynx clear without exudates. Moist mucous membranes. LUNGS: Improved respiratory effort with fine bibasilar rales. No wheezing. HEART: Regular rate and regular rhythm, normal S1 and S2 without murmur, rub or gallop. ABDOMEN: Soft, nontender, not distended, normoactive bowel sounds LOWER EXTREMITIES: trace pitting edema Laboratory Results CBC, BMP 03/17/18 06:30 03/17/18 06:30 Active Medications Generic Name Dose Route Start Last Admin Trade Name Freq PRN Reason Stop Dose Admin Albuterol Sulfate 1 amp 03/13/18 13:34 Ventolin 0.083% Nebulizer Soln - NEB Q4H PRN SHORT OF BREATH/WHEEZING Albuterol/Ipratropium 1 amp 03/13/18 16:00 03/16/18 20:37 Duoneb - NEB 1 amp RQID [facility] Administration Aspirin 81 mg 03/14/18 10:00 03/16/18 09:08 Asa - PO 81 mg DAILY [facility] Administration Atorvastatin Calcium 20 mg 03/13/18 22:00 03/16/18 21:07 Lipitor - PO 20 mg HS [facility] Administration Azithromycin 500 mg 03/17/18 09:00 Zithromax - PO 03/17/18 09:01 ONCE ONE Ezetimibe 10 mg 03/14/18 10:00 03/16/18 09:09 Zetia - PO 10 mg DAILY [facility] Administration Furosemide 40 mg 03/16/18 10:15 03/16/18 11:24 Lasix - PO 40 mg DAILY [facility] Administration Guaifenesin/Codeine Phosphate 5 ml 03/15/18 15:46 03/15/18 21:32 Robitussin Ac - PO 5 ml TID PRN Administration COUGH Heparin Sodium (Porcine) 5,000 unit 03/14/18 14:00 03/17/18 06:26 Heparin - SQ 5,000 unit TID [facility] Administration Insulin Aspart 1 vial 03/14/18 22:00 03/16/18 21:09 Novolog Vial Sliding Scale - SQ 6 units HS [facility] Administration Protocol Insulin Aspart 1 vial 03/14/18 11:00 03/17/18 07:08 Novolog Vial Sliding Scale - SQ Not Given TIDAC [facility] Protocol Insulin Detemir 45 units 03/14/18 22:00 03/16/18 21:06 Levemir Vial SQ 45 units HS [facility] Administration Insulin Detemir 20 units 03/15/18 07:00 03/16/18 06:42 Levemir Vial SQ 20 units AM [facility] Administration Metoprolol Succinate 50 mg 03/13/18 22:00 03/16/18 21:10 Toprol Xl - PO 50 mg HS [facility] Administration Oseltamivir Phosphate 30 mg 03/14/18 10:00 03/16/18 21:08 Tamiflu - PO 03/19/18 09:59 30 mg BID [facility] Administration Pantoprazole Sodium 40 mg 03/14/18 10:00 03/16/18 09:08 Protonix - PO 40 mg DAILY [facility] Administration Prednisone 60 mg 03/17/18 10:00 Deltasone - PO DAILY [facility] Senna 2 tab 03/14/18 22:00 Senna - PO HS PRN CONSTIPATION ASSESSMENT/PLAN: Patient is a 72 year old male who presented with worsening shortness of breath and was found to be influenza A positive with possible Pneumonia. Patient admitted to telemetry for further monitoring and management. Acute Hypoxic Respiratory Failure -Likely secondary to acute CHF and COPD exac from superimposed influenza -Clinically improved and now on home 02 -Azithromycin IV day 06/29 and will then discharge with PO -Continue Duo-nebs standing and PRN -Steroid taper to Prednisone 60mg daily -O2 to keep SpO2 >90% -Urine antigens negative -Sputum and blood cultures negative Influenza A Positive -Flu swab positive -Will continue Tamiflu 30mg PO BID day 5 Pulmonary Fibrosis/ILD -Followed by Dr. Varela at [place] -Was taking Ofev but was discontinued 2 weeks ago and now on Chronic Prednisone -On chronic 02 but is noncompliant according to daughter Acute on Chronic CHF -Weight is decreasing from 86kg to 85kg from yesterday -Lasix 40mg PO -Continue Metoprolol -Will hold Losartan for now due to TAZ -Daily weights -Strict I&O's Acute on Chronic COPD Exacerbation -Nebulizers standing -Steroid taper to prednisone 60mg daily -O2 to keep SpO2 >90% Diarrhea -C.diff ordered Leukocytosis- Improving -Likely from chronic prednisone use HyperKalemia-Improved -Likely secondary to TAZ SHANTI -On CPAP at night. Will resume CAD s/p Stents -Continue ASA TAZ on CKD- Improving -Likely from Lasix -Will hold Losartan -Renally dose medications -Continue to monitor IDDMII with Uncontrolled Hyperglycemia -BGM -ISS -Levemir 45 units at night and 20 units in the morning HTN -Continue Metoprolol -Hold Losartan -Monitor BP HLD -Continue Zetia and Atorvastatin GERD -Continue Protonix 40mg PO daily F/E/N -On no fluids -Electrolytes wnl -Diabetic/Sodium controlled diet Prophylaxis -Heparin sq TID for DVT -Protonix for GI Disposition -Full code. HCP is his daughter Courtney -Likely to be discharged once PT evaluates.
[2018-03-17] MEDS ORDERED: AZITHROMYCIN 250 MG TABLET PO ONE (09:00)
[2018-03-17] MEDS: INSULIN (LEVEMIR) 100 UNITS/ML UNITS SQ SCH (09:07)
[2018-03-17] MEDS: PANTOPRAZOLE 40 MG TABLET (FP) PO SCH (09:08)
[2018-03-17] MEDS: ASPIRIN 81 MG CHEWABLE TABLETS PO SCH (09:08)
[2018-03-17] MEDS: FUROSEMIDE 40 MG TABLET (FP) PO SCH (09:08)
[2018-03-17] MEDS: EZETIMIBE 10 MG TABLET (FP) PO SCH (09:09)
[2018-03-17] MEDS: OSELTAMIVIR PHOSPHATE 30 MG CAPSULE PO SCH (09:09)
[2018-03-17 09:40] VITALS: BP 138/78; PULSE 74; TEMP 97.8
--- NOTE | 2018-03-17 09:49 | PN ---
Teaching Attending Note Name of Resident: Estefania Urena ATTENDING PHYSICIAN STATEMENT I saw and evaluated the patient. I reviewed the resident's note and discussed the case with the resident. I agree with the resident's findings and plan as documented with exceptions below. SUBJECTIVE: Patient seen and examined. Breathing improved. Had an episode of diarrhea this AM. Reports eating turkey wrap brought by daughter at home. NO nausea, vomiting. Has been tolerating PO intake. Reports h/o diarrhea, on one of his inhalers outpatient that has improved after being taken off it. OBJECTIVE: Vital Signs Period Temp Pulse Resp BP Sys/Meraz Pulse Ox Last 24 Hr 97.3 F-98.0 F 64-105 20-22 133-151/77-96 93-93 Intake & Output 03/14/18 03/15/18 03/16/18 03/17/18 23:59 23:59 23:59 23:59 Intake Total 1500 590 993 240 Output Total 2700 800 400 Balance -1200 590 193 -160 Weight 193 lb 4 oz 191 lb 6.4 oz 190 lb 189 lb 4 oz General: sitting in bed having breakfast, no acute process Neck: soft, supple, no JVD visualized Chest: improved air entry, basilar fine rales unchanged no wheezing Abdomen;Soft, NT throughout, ND, positive bowel sounds Extremities: markedly improved pedal edema Home Medications Medication Instructions Recorded Albuterol Sulfate [Proair Hfa] 2 inh IH TID 02/21/18 Allopurinol [Zyloprim -] 50 mg PO DAILY 02/21/18 Aspirin 81 mg PO DAILY 02/21/18 Cholecalciferol (Vitamin D3) 2,000 unit PO DAILY 02/21/18 [Vitamin D -] Dulaglutide [Trulicity] 1.5 mg SQ WEEKLY 02/21/18 Ezetimibe [Zetia -] 10 mg PO DAILY 02/21/18 Insulin (Levemir) [Levemir Vial] 32 unit SQ ASDIR 02/21/18 Lactobacillus Acidophilus 1 each PO DAILY 02/21/18 [Acidophilus] Losartan Potassium [Cozaar -] 25 mg PO DAILY 02/21/18 Metoprolol Succinate 50 mg PO HS 02/21/18 Pantoprazole Sodium [Protonix] 40 mg PO DAILY 02/21/18 Pitavastatin Calcium [Livalo] 4 mg PO DAILY 12/28/18 Ubidecarenone [Co Q-10] 200 mg PO DAILY 02/21/18 Furosemide [Lasix] 60 mg PO DAILY 03/13/18 Prednisone 15 mg PO DAILY 03/13/18 Active Medications Albuterol Sulfate (Ventolin 0.083% Nebulizer Soln -) 1 amp NEB Q4H PRN PRN Reason: SHORT OF BREATH/WHEEZING Albuterol/Ipratropium (Duoneb -) 1 amp NEB RQID [facility] Last Admin: 03/17/18 08:00 Dose: 1 amp Aspirin (Asa -) 81 mg PO DAILY [facility] Last Admin: 03/17/18 09:08 Dose: 81 mg Atorvastatin Calcium (Lipitor -) 20 mg PO HS [facility] Last Admin: 03/16/18 21:07 Dose: 20 mg Ezetimibe (Zetia -) 10 mg PO DAILY [facility] Last Admin: 03/17/18 09:09 Dose: 10 mg Furosemide (Lasix -) 40 mg PO DAILY [facility] Last Admin: 03/17/18 09:08 Dose: 40 mg Guaifenesin/Codeine Phosphate (Robitussin Ac -) 5 ml PO TID PRN PRN Reason: COUGH Last Admin: 03/15/18 21:32 Dose: 5 ml Heparin Sodium (Porcine) (Heparin -) 5,000 unit SQ TID [facility] Last Admin: 03/17/18 06:26 Dose: 5,000 unit Insulin Aspart (Novolog Vial Sliding Scale -) 1 vial SQ [facility]; Protocol Last Admin: 03/16/18 21:09 Dose: 6 units Insulin Aspart (Novolog Vial Sliding Scale -) 1 vial SQ TIDAC [facility]; Protocol Last Admin: 03/17/18 07:08 Dose: Not Given Insulin Detemir (Levemir Vial) 45 units SQ HS [facility] Last Admin: 03/16/18 21:06 Dose: 45 units Insulin Detemir (Levemir Vial) 20 units SQ AM [facility] Last Admin: 03/17/18 09:07 Dose: 20 units Metoprolol Succinate (Toprol Xl -) 50 mg PO HS [facility] Last Admin: 03/16/18 21:10 Dose: 50 mg Oseltamivir Phosphate (Tamiflu -) 30 mg PO BID [facility] Stop: 03/19/18 09:59 Last Admin: 03/17/18 09:09 Dose: 30 mg Pantoprazole Sodium (Protonix -) 40 mg PO DAILY [facility] Last Admin: 03/17/18 09:08 Dose: 40 mg Prednisone (Deltasone -) 60 mg PO DAILY [facility] Last Admin: 03/17/18 09:08 Dose: 60 mg Senna (Senna -) 2 tab PO HS PRN PRN Reason: CONSTIPATION Laboratory Results - last 24 hr 03/16/18 03/16/18 03/16/18 05:25 11:27 17:02 WBC RBC Hgb Hct MCV MCH MCHC RDW Plt Count MPV Absolute Neuts (auto) Total Counted 100 Neutrophils % Neutrophils % (Manual) 95.0 H Band Neutrophils % 3.0 Lymphocytes % Monocytes % Monocytes % (Manual) 2 L Eosinophils % Basophils % Nucleated RBC % Platelet Estimate Slt decrease Polychromasia 1+ Anisocytosis 1+ Marsha Cells 1+ Sodium Potassium Chloride Carbon Dioxide Anion Gap BUN Creatinine Creat Clearance w eGFR POC Glucometer 74 254 Random Glucose Calcium Phosphorus Magnesium 03/16/18 03/17/18 03/17/18 20:32 06:08 06:30 WBC 15.1 H RBC 4.30 Hgb 13.3 Hct 39.9 MCV 92.8 MCH 31.0 MCHC 33.4 RDW 15.3 Plt Count 129 L MPV 8.1 Absolute Neuts (auto) 13.2 H Total Counted Neutrophils % 87.6 H Neutrophils % (Manual) Band Neutrophils % Lymphocytes % 4.4 L D Monocytes % 7.7 Monocytes % (Manual) Eosinophils % 0.1 D Basophils % 0.2 D Nucleated RBC % 0 Platelet Estimate Polychromasia Anisocytosis Marsha Cells Sodium Potassium Chloride Carbon Dioxide Anion Gap BUN Creatinine Creat Clearance w eGFR POC Glucometer 285 78 Random Glucose Calcium Phosphorus Magnesium 03/17/18 06:30 WBC RBC Hgb Hct MCV MCH MCHC RDW Plt Count MPV Absolute Neuts (auto) Total Counted Neutrophils % Neutrophils % (Manual) Band Neutrophils % Lymphocytes % Monocytes % Monocytes % (Manual) Eosinophils % Basophils % Nucleated RBC % Platelet Estimate Polychromasia Anisocytosis Orchard Cells Sodium 140 Potassium 4.0 Chloride 104 Carbon Dioxide 28 Anion Gap 8 BUN 44 H Creatinine 1.3 Creat Clearance w eGFR 54.57 POC Glucometer Random Glucose 74 Calcium 8.7 Phosphorus 4.3 Magnesium 2.1 Microbiology 03/13/18 09:45 Blood - Peripheral Venous Blood Culture - Preliminary NO GROWTH OBTAINED AFTER 96 HOURS, INCUBATION TO CONTINUE FOR 1 DAYS. 03/13/18 09:30 Blood - Peripheral Venous Blood Culture - Preliminary NO GROWTH OBTAINED AFTER 96 HOURS, INCUBATION TO CONTINUE FOR 1 DAYS. 03/16/18 06:00 Sputum - Expectorated Sputum Culture - Preliminary NORMAL RESPIRATORY LYNETTE 03/13/18 15:25 Urine For Antigen Detection Legionella Antigen - Final 03/13/18 15:25 Urine For Antigen Detection Streptococcus pneumoniae Antigen (M - Final ASSESSMENT AND PLAN: 72 yom with PMhx of COPD, Steroid/oxygen (3L) dependent Pulmonary fibrosis/ILD , SHANTI on CPAP at night, Pulmonary HTN, CKD stage II, LV systolic dysfunction, prior admissions for CHF, CAD s/p MD, 2Stents , T2DM on Insulin, Hypercholesterolemia admitted with acute on chronic hypoxic respiratory failure , Acute influenza A illness. -Acute on chronic hypoxic respiratory failure -Acute Influenza A illness -Sepsis -Leucocytosis, suspect steroid induced given clinical improvement -r/o secondary PNA given immunocompromised state -Acute COPD exacerbation -Acute on chronic diastolic heart failure exacerbation -TAZ on CKD stage II, suspect from above -Hyperkalemia, suspect from TAZ and severe hyperglycemia -Lactic acidosis, suspect from work of breathing+/- sepsis -Steroid/Oxygen dependent Pulmonary Fibrosis -SHANTI on CPAP at night -CAD s/p PCI -LV systolic dysfunction -IDDM -Diarrhea, ?food related, low suspicion for C difficile Plan: Clinically improved. Tamiflu day 06/29 CT chest with no clear infiltrate. 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 Azithromycin day 06/29. PO Prednisone today with taper outpatient. Pulmonary input appreciated. 2D echo results reviewed Volume status, renal function improved,responding well to diuresis. lasix 40 mg daily with outpatient weights and renal function monitoring. Resume Losartan Patient on higher novolog sliding scale at home. Current uncontrolled blood sugars from steroids. Discussed with Dr. Aranda. levemir increased to 20 units qam and 45 units hs. Tighter sliding scale. Resume home regimen on dc as steroids being tapered with outpatient follow up with Dr. Aranda WBC high but clinically improved, suspect steroid induced, monitor for now. ASA/statin/metoprolol. LE duplex neg for DVT. DVTPPX heparin Code status: full code Dispo 2-3 L continuous home oxygen . PT eval. D/c home with services on po prednisone later today if no further diarrhea and disposition arranged. Plan discussed with patient in detail, all questions answered.
[2018-03-17] MEDS ORDERED: predniSONE 20 MG TABLET (UD) PO SCH (10:00)
[2018-03-17] MEDS ORDERED: LOSARTAN POTASSIUM 25 MG TABLET PO SCH (10:00)
[2018-03-17 11:20] LABS: ANISOCYTOSIS 1+; MACROCYTOSIS 1+; PLATELET ESTIMATE DECREASED
--- NOTE | 2018-03-17 12:02 | PN ---
Progress Note (short form) - Note Progress Note: PULMONARY States breathing continues to improve. VSS/afebrile Gen: mildly tachypneic with speaking Heart: RRR Lung: scattered rhonchi Abd: soft, nontender Ext: less edema Active Medications reviewed labs/notes/micro/images noted A/P Acute on Chronic Hypoxic Respiratory Failure Influenza A Sepsis r/o Pneumonia Acute on Chronic Renal Failure Lactic Acidosis Interstitial Lung Disease COPD CAD LV Systolic Dysfunction HTN DM SHANTI - continue tamiflu day # 4 - empiric azithromycin - prednisone taper - inhaled bronchodilators - taper O2 to keep SpO2 >90%, place on nasal cannula - cough suppressant - monitor urine output, creatinine - glucose control while on systemic steroids - DVT prophylaxis - pulmonary rehab as outpt Kristen CAIN MD
--- NOTE | 2018-03-17 14:15 | PN ---
Progress Note, Physician History of Present Illness: Pt seen and examined at bedside. He is awake and alert. He feels that his breathing is improved. He denies dysuria or hematuria. He feels that his lower ext edema is improved. - Current Medication List Current Medications: Active Medications Albuterol Sulfate (Ventolin 0.083% Nebulizer Soln -) 1 amp NEB Q4H PRN PRN Reason: SHORT OF BREATH/WHEEZING Albuterol/Ipratropium (Duoneb -) 1 amp NEB RQID [facility] Last Admin: 03/17/18 11:55 Dose: 1 amp Aspirin (Asa -) 81 mg PO DAILY [facility] Last Admin: 03/17/18 09:08 Dose: 81 mg Atorvastatin Calcium (Lipitor -) 20 mg PO HS [facility] Last Admin: 03/16/18 21:07 Dose: 20 mg Ezetimibe (Zetia -) 10 mg PO DAILY [facility] Last Admin: 03/17/18 09:09 Dose: 10 mg Furosemide (Lasix -) 40 mg PO DAILY [facility] Last Admin: 03/17/18 09:08 Dose: 40 mg Guaifenesin/Codeine Phosphate (Robitussin Ac -) 5 ml PO TID PRN PRN Reason: COUGH Last Admin: 03/15/18 21:32 Dose: 5 ml Heparin Sodium (Porcine) (Heparin -) 5,000 unit SQ TID [facility] Last Admin: 03/17/18 06:26 Dose: 5,000 unit Insulin Aspart (Novolog Vial Sliding Scale -) 1 vial SQ HS [facility]; Protocol Last Admin: 03/16/18 21:09 Dose: 6 units Insulin Aspart (Novolog Vial Sliding Scale -) 1 vial SQ TIDAC [facility]; Protocol Last Admin: 03/17/18 11:57 Dose: Not Given Insulin Detemir (Levemir Vial) 45 units SQ HS [facility] Last Admin: 03/16/18 21:06 Dose: 45 units Insulin Detemir (Levemir Vial) 20 units SQ AM [facility] Last Admin: 03/17/18 09:07 Dose: 20 units Losartan Potassium (Cozaar -) 25 mg PO DAILY [facility] Last Admin: 03/17/18 11:25 Dose: 25 mg Metoprolol Succinate (Toprol Xl -) 50 mg PO HS [facility] Last Admin: 03/16/18 21:10 Dose: 50 mg Oseltamivir Phosphate (Tamiflu -) 30 mg PO BID [facility] Stop: 03/19/18 09:59 Last Admin: 03/17/18 09:09 Dose: 30 mg Pantoprazole Sodium (Protonix -) 40 mg PO DAILY [facility] Last Admin: 03/17/18 09:08 Dose: 40 mg Prednisone (Deltasone -) 60 mg PO DAILY [facility] Last Admin: 03/17/18 09:08 Dose: 60 mg Senna (Senna -) 2 tab PO HS PRN PRN Reason: CONSTIPATION - Objective Vital Signs: Vital Signs Temperature 97.8 F 03/17/18 09:00 Pulse Rate 74 03/17/18 09:00 Respiratory Rate 20 03/17/18 09:00 Blood Pressure 138/78 03/17/18 09:00 O2 Sat by Pulse Oximetry (%) 93 L 03/17/18 08:01 Constitutional: Yes: Calm Eyes: Yes: Conjunctiva Clear HENT: Yes: Atraumatic Cardiovascular: Yes: S1, S2 Respiratory: Yes: On Nasal O2 Gastrointestinal: Yes: Soft Genitourinary: Yes: WNL Edema: Yes Edema: LLE: Trace, RLE: Trace Neurological: Yes: Oriented Psychiatric: Yes: Oriented Labs: CBC, BMP 03/17/18 06:30 03/17/18 06:30 INR, PTT INR 1.05 (0.83-1.09) 03/13/18 09:30 Problem List - Problems (1) Influenza A Code(s): J10.1 - FLU DUE TO OTH IDENT INFLUENZA VIRUS W OTH RESP MANIFEST (2) CHF exacerbation Code(s): I50.9 - HEART FAILURE, UNSPECIFIED Qualifiers: Qualified Code(s): I50.9 - Heart failure, unspecified (3) CKD (chronic kidney disease) stage 3, GFR 30-59 ml/min Code(s): N18.3 - CHRONIC KIDNEY DISEASE, STAGE 3 (MODERATE) Assessment/Plan Current Medications Generic Name Dose Route Start Last Admin Trade Name Freq PRN Reason Stop Dose Admin Albuterol Sulfate 1 amp 03/13/18 13:34 Ventolin 0.083% Nebulizer Soln - NEB Q4H PRN SHORT OF BREATH/WHEEZING Albuterol/Ipratropium 1 amp 03/13/18 16:00 03/17/18 11:55 Duoneb - NEB 1 amp RQID [facility] Administration Aspirin 81 mg 03/14/18 10:00 03/17/18 09:08 Asa - PO 81 mg DAILY [facility] Administration Atorvastatin Calcium 20 mg 03/13/18 22:00 03/16/18 21:07 Lipitor - PO 20 mg HS [facility] Administration Ezetimibe 10 mg 03/14/18 10:00 03/17/18 09:09 Zetia - PO 10 mg DAILY [facility] Administration Furosemide 40 mg 03/16/18 10:15 03/17/18 09:08 Lasix - PO 40 mg DAILY [facility] Administration Guaifenesin/Codeine Phosphate 5 ml 03/15/18 15:46 03/15/18 21:32 Robitussin Ac - PO 5 ml TID PRN Administration COUGH Heparin Sodium (Porcine) 5,000 unit 03/14/18 14:00 03/17/18 06:26 Heparin - SQ 5,000 unit TID [facility] Administration Insulin Aspart 1 vial 03/14/18 22:00 03/16/18 21:09 Novolog Vial Sliding Scale - SQ 6 units HS [facility] Administration Protocol Insulin Aspart 1 vial 03/14/18 11:00 03/17/18 11:57 Novolog Vial Sliding Scale - SQ Not Given TIDAC [facility] Protocol Insulin Detemir 45 units 03/14/18 22:00 03/16/18 21:06 Levemir Vial SQ 45 units HS [facility] Administration Insulin Detemir 20 units 03/15/18 07:00 03/17/18 09:07 Levemir Vial SQ 20 units AM [facility] Administration Losartan Potassium 25 mg 03/17/18 10:00 03/17/18 11:25 Cozaar - PO 25 mg DAILY [facility] Administration Metoprolol Succinate 50 mg 03/13/18 22:00 03/16/18 21:10 Toprol Xl - PO 50 mg HS [facility] Administration Oseltamivir Phosphate 30 mg 03/14/18 10:00 03/17/18 09:09 Tamiflu - PO 03/19/18 09:59 30 mg BID [facility] Administration Pantoprazole Sodium 40 mg 03/14/18 10:00 03/17/18 09:08 Protonix - PO 40 mg DAILY [facility] Administration Prednisone 60 mg 03/17/18 10:00 03/17/18 09:08 Deltasone - PO 60 mg DAILY [facility] Senna 2 tab 03/14/18 22:00 Senna - PO HS PRN CONSTIPATION Impression 1. TAZ 2. CKD 3. Pulmonary fibrosis on Home oxygen 4. SHANTI on CPAP at night 5. Pulmonary HTN 6. CAD s/p PA, 2Stents 7. DM 8. Chol 9. copd Plan - cont with lasix - renal function stable - pt will follow with Dr Boswell after discharge - discussed low salt diet and fluid intake - avoid nsaids -
--- NOTE | 2018-03-17 20:10 | DS ---
Physical Exam: SUBJECTIVE: Patient seen and examined by me at bedside. No acute events overnight Patient reports feeling much better and states at baseline with his respiratory status However, patient reports having watery diarrhea with an episode this morning. Patient however is eating food from the hospital and outside food as well. Otherwise, denies any fever, chills, nausea, vomiting, abdominal pain, chest pain, palpitations, headaches, acute vision changes, urinary symptoms. OBJECTIVE: Vital Signs Period Temp Pulse Resp BP Sys/Meraz Pulse Ox Last 24 Hr 97.7 F-98.0 F 73-76 20-20 135-147/78-82 93-93 PHYSICAL EXAM GENERAL: Awake, alert, and fully oriented, in mild respiratory distress EYES: Sclera anicteric, Left eye conjunctivitis. ENT: Oropharynx clear without exudates. Moist mucous membranes. LUNGS: Improved respiratory effort with fine bibasilar rales. No wheezing. HEART: Regular rate and regular rhythm, normal S1 and S2 without murmur, rub or gallop. ABDOMEN: Soft, nontender, not distended, normoactive bowel sounds LOWER EXTREMITIES: trace pitting edema LABS Laboratory Results 03/17/18 03/17/18 03/17/18 06:30 06:30 11:28 WBC 15.1 H RBC 4.30 Hgb 13.3 Hct 39.9 MCV 92.8 MCH 31.0 MCHC 33.4 RDW 15.3 Plt Count 129 L MPV 8.1 Absolute Neuts (auto) 13.2 H Neutrophils % 87.6 H Neutrophils % (Manual) 90.0 H Band Neutrophils % 0.0 Lymphocytes % 4.4 L D Lymphocytes % (Manual) 2.0 L Monocytes % 7.7 Monocytes % (Manual) 8 D Eosinophils % 0.1 D Eosinophils % (Manual) 0.0 Basophils % 0.2 D Basophils % (Manual) 0.0 Myelocytes % (Man) 0 Promyelocytes % (Man) 0 Blast Cells % (Manual) 0 Nucleated RBC % 0 Metamyelocytes 0 Hypochromia 0 Platelet Estimate Decreased Polychromasia 0 Poikilocytosis 0 Anisocytosis 1+ Microcytosis 0 Macrocytosis 1+ Sodium 140 Potassium 4.0 Chloride 104 Carbon Dioxide 28 Anion Gap 8 BUN 44 H Creatinine 1.3 Creat Clearance w eGFR 54.57 POC Glucometer 125 Random Glucose 74 Calcium 8.7 Phosphorus 4.3 Magnesium 2.1 Microbiology 03/16/18 06:00 Sputum - Expectorated Gram Stain - Final 03/16/18 06:00 Sputum - Expectorated Sputum Culture - Preliminary NORMAL RESPIRATORY LYNETTE 03/13/18 09:45 Blood - Peripheral Venous Blood Culture - Preliminary NO GROWTH OBTAINED AFTER 96 HOURS, INCUBATION TO CONTINUE FOR 1 DAYS. 03/13/18 09:30 Blood - Peripheral Venous Blood Culture - Preliminary NO GROWTH OBTAINED AFTER 96 HOURS, INCUBATION TO CONTINUE FOR 1 DAYS. 03/13/18 15:25 Urine For Antigen Detection Legionella Antigen - Final 03/13/18 15:25 Urine For Antigen Detection Streptococcus pneumoniae Antigen (M - Final PRE HOSPITAL COURSE: Patient is a 72 year old male with a PMHx of Pulmonary fibrosis/ILD (Dx 3 years ago, currently on 3L 02), COPD, CAD s/p 3 stent placements, Systolic CHF, HTN, IDDMII, Anxiety, BPH, CKD, who presented for severe shortness of breath, worsening LE edema and URI symptoms with subjective fevers. Patient was found to be influenza positive causing acute on chronic hypoxic respiratory failure, requiring increasing 02 usage. Patient admitted to telemetry for further monitoring and management. HOSPITAL COURSE: Throughout hospitalization, patient was placed on IV steroids, Standing nebulizers/inhalers, IV Lasix, Tamiflu for the flu, and IV Abx with azithromycin. Patient also found to have hyperglycemia with consult placed with his radio frequency engineer, who recommended increasing his Levemir, which controlled his glucose levels significantly. Patient's respiratory status improved significantly. IV Lasix was tapered down to his home dose and patient completed course of IV antibiotics. Patient was able to tolerate PO, Physical therapy with a pre and post 02 done. Patient did not require more 02 as outpatient. Patient was discharged home with VNS and PO prednisone taper. Date of Admission:03/13/18 Date of Discharge: 03/17/18 Minutes to complete discharge: 45 Discharge Summary Reason For Visit: INFULENZA DUE TO INFLUENZA VIRUS TYPE A Condition: Stable - Instructions Diet, Activity, Other Instructions: RECOMMENDATIONS: -You were seen here for worsening shortness of breath likely caused by the Flu that you were found to have here. You were also found to have some fluid in your lungs and legs due to some kidney injury. You were given steroids, antibiotics and water pills to help get rid of the fluids and improve your breathing. -You will need to continue Lasix at home -You will need to continue steroids at home -You will need to avoid NSAID's at home such as Advil, Aleve, Motrin -You will need to resume your regular sodium and glucose controlled diet -Recommend pulmonary rehab as outpatient -If symptoms worsen such as shortness of breath or chest pain, return to the emergency department MEDICATIONS: -Your lasix was recently increased to 60 mg daily recently, please continue the the same. -You will also be placed on steroids for a certain amount of days. We will start you off with Prednisone 60mg for 4 days then decrease it to Prednisone 50mg for 4 days, then Prednisone 40mg for 4 days, then Prednisone 30mg for 4 days, then Prednisone 20mg for 4 days then you can resume your normal dose of 15mg daily. A prescription will be sent to your pharmacy -Please resume the rest of your medications -Continue your insulin with levemir and sliding scale as prior. While on steroids, you are advised to maintain a strict diary of blood sugars, before meals and at bedtime and discuss results with Dr. Aranda. If you notify blood sugars < 75 or persistently > 200, please notify Dr. Aranda to address your insulin dose. -You need 1 more dose of Tamiflu 30 mg tonight. FOLLOW UP: -Please Follow up with your Rim Fire Charger Operator, Dr. Rodriguez, within 1-2 weeks as you will need repeat labs to check your kidney function -Please follow up with your Insurance Special Agent, Dr. Christianson. She will need to re- evaluate your insulin needs. -Please follow up with your Pulmonary Fibrosis Doctor at [place], Dr. Varela, for pulmonary rehab and further management. -Please follow up with your Primary care physician within a week. ACTIVITY: Use 2-3 liters home oxygen continuously Daily weights and notify doctor if weight gain > 3lbs in 2 days. Blood sugar monitoring as discussed above Please cover your cough, wear a mask if needed and avoid crowded places and close contact with children, sick or elderly till your symptoms resolve. If you notice any new fevers, chills, worsening breathing, increased cough and sputum, blood in sputum, inability to urinate,or any new concerns, please call 911 or come to ED. Referrals: Danny Rodriguez MD [Staff Physician] - Lonnie Garrido MD [Primary Care Provider] - Lore Christianson MD [Staff Physician] - Disposition: VNS/HOME HEALTH CARE - Home Medications Comprehensive Discharge Medication List: Ambulatory Orders Albuterol Sulfate [Proair Hfa] 2 inh IH TID 02/21/18 Allopurinol [Zyloprim -] 50 mg PO DAILY 02/21/18 Aspirin 81 mg PO DAILY 02/21/18 Cholecalciferol (Vitamin D3) [Vitamin D -] 2,000 unit PO DAILY 02/21/18 Dulaglutide [Trulicity] 1.5 mg SQ WEEKLY 02/21/18 Ezetimibe [Zetia -] 10 mg PO DAILY 02/21/18 Lactobacillus Acidophilus [Acidophilus] 1 each PO DAILY 02/21/18 Losartan Potassium [Cozaar -] 25 mg PO DAILY 02/21/18 Metoprolol Succinate 50 mg PO HS 02/21/18 Pantoprazole Sodium [Protonix] 40 mg PO DAILY 02/21/18 Pitavastatin Calcium [Livalo] 4 mg PO DAILY 02/21/18 Ubidecarenone [Co Q-10] 200 mg PO DAILY 02/21/18 Furosemide [Lasix] 60 mg PO DAILY 03/13/18 Insulin (Levemir) [Levemir Vial] 32 units SQ HS 03/17/18 Insulin Sliding Scale [Novolog Vial Sliding Scale -] 1 units SQ ACHS 30 Days #1 5ml 03/17/18 Oseltamivir Phosphate [Tamiflu -] 30 mg PO DAILY #1 capsule 03/17/18 Prednisone 15 mg PO DAILY #30 mg 03/17/18 Prednisone See Taper PO DAILY #80 tablet 03/17/18 This patient is new to me today: Yes Date on this admission: 03/17/18 Emergency Visit: No Critical Care patient: No - Discharge Referral Referred to [facility] No
== END 2018-03-17 15:00 | disposition home health service (06) | DRG 871 ==
LOC: JER 09:13 → JERBED 11:10 → J4S 12:26
PROVIDERS: ADMIT Hospitalist; ATTEND Hospitalist
DX: A41.9 Sepsis, unspecified organism (principal); J96.21 Acute and chronic respiratory failure with hypoxia; I50.33 Acute on chronic diastolic (congestive) heart failure; J44.1 Chronic obstructive pulmonary disease with (acute) exacerbation; N17.9 Acute kidney failure, unspecified; E87.2 Acidosis; J44.0 Chronic obstructive pulmonary disease with (acute) lower respiratory infection; I13.0 Hypertensive heart and chronic kidney disease with heart failure and stage 1 through stage 4 chronic kidney disease, or unspecified chronic kidney disease; J10.1 Influenza due to other identified influenza virus with other respiratory manifestations; I25.10 Atherosclerotic heart disease of native coronary artery without angina pectoris; I25.2 Old myocardial infarction; N40.0 Benign prostatic hyperplasia without lower urinary tract symptoms; E78.00 Pure hypercholesterolemia, unspecified; E11.21 Type 2 diabetes mellitus with diabetic nephropathy; J44.9 Chronic obstructive pulmonary disease, unspecified; J84.10 Pulmonary fibrosis, unspecified; F41.9 Anxiety disorder, unspecified; D72.829 Elevated white blood cell count, unspecified; E87.5 Hyperkalemia; G47.33 Obstructive sleep apnea (adult) (pediatric); K21.9 Gastro-esophageal reflux disease without esophagitis; E78.5 Hyperlipidemia, unspecified; I27.20 Pulmonary hypertension, unspecified; E11.65 Type 2 diabetes mellitus with hyperglycemia; E11.22 Type 2 diabetes mellitus with diabetic chronic kidney disease; N18.2 Chronic kidney disease, stage 2 (mild); Z95.5 Presence of coronary angioplasty implant and graft; Z99.81 Dependence on supplemental oxygen
CPT/HCPCS: 36415; 71045-TC-FY; 71250-TC; 80048; 80053; 81003; 81015; 82550; 82803; 82962; 83036; 83605; 83735; 83880; 84100; 84484; 85025; 85610; 87040; 87070; 87205; 87804; 87899; 93005; 93010; 93306-TC; 93970-TC; 94640; 94761; 97116-GP; 97161-GP; 99284-25; J0131; J1644

== ENCOUNTER 2018-06-19 18:00 | Inpatient (IN) | payer OTHER, BC ==
--- NOTE | 2018-06-19 18:31 | PDOC ---
History of Present Illness - General Chief Complaint: Respiratory Distress Stated Complaint: PCP SENT/SOB Time Seen by Provider: 06/19/18 18:08 - History of Present Illness Initial Comments: 06/19/18 19:00 The patient is a 72 year old male with a history of HTN, HLD, DM, LA, CAD, COPD , Pulmonary Fibrosis who presents for evaluation of shortness of breath. The patient is accompanied by family who assists in providing the history. They note a several day history of worsening shortness of breath and dyspnea on exertion prompting his presentation to the ED for further evaluation. He notes that he is usually on 2 L of home O2 and went up to 3L with no improvement in his symptoms. On presentation to the ED the patient was noted to have an O2 saturation of 78% on 3L. He otherwise denies fevers, chills, chest pain, cough , nausea, vomiting, abdominal pain, or changes with urination or bowel movements. Past History - Past Medical History Allergies/Adverse Reactions: Allergies Allergy/AdvReac Type Severity Reaction Status Date / Time No Known Drug Allergies Allergy Verified 02/21/18 12:21 Home Medications: Ambulatory Orders Albuterol Sulfate [Proair Hfa] 2 inh IH QID 02/21/18 Allopurinol [Zyloprim -] 50 mg PO DAILY 02/21/18 Cholecalciferol (Vitamin D3) [Vitamin D -] 2,000 unit PO DAILY 02/21/18 Dulaglutide [Trulicity] 1.5 mg SQ WEEKLY 02/21/18 Ezetimibe [Zetia -] 10 mg PO DAILY 02/21/18 Lactobacillus Acidophilus [Acidophilus] 1 each PO DAILY 02/21/18 Losartan Potassium [Cozaar -] 25 mg PO DAILY 02/21/18 Metoprolol Succinate 50 mg PO HS 02/21/18 Pantoprazole Sodium [Protonix] 40 mg PO DAILY 02/21/18 Pitavastatin Calcium [Livalo] 4 mg PO DAILY 02/21/18 Ubidecarenone [Co Q-10] 200 mg PO DAILY 02/21/18 Furosemide [Lasix] 80 mg PO DAILY 03/13/18 Insulin (Levemir) [Levemir Vial] 0 units SQ ASDIR 03/17/18 Cider Vinegar [Apple Cider Vinegar] 500 mg PO DAILY 06/19/18 Cyanocobalamin (Vitamin B-12) [Vitamin B-12] 200 mg PO DAILY 06/19/18 Insulin Sliding Scale [Novolog Vial Sliding Scale -] 0 units SQ ACHS 06/19/18 Nintedanib Esylate [Ofev] 150 mg PO DAILY 06/19/18 Prednisone 10 mg PO DAILY 06/19/18 Turmeric/Turmeric Root Extract [Turmeric 500 mg Capsule] 500 mg PO DAILY Anemia: No Asthma: No Cancer: No Cardiac Disorders: Yes (LA 1991, CAD, PCI) CVA: No COPD: Yes CHF: No Dementia: No Diabetes: Yes GI Disorders: No Disorders: Yes (BPH) HTN: Yes Hypercholesterolemia: Yes Liver Disease: No Seizures: No Thyroid Disease: No Other medical history: CYSTIC FIBROSIS - Surgical History Abdominal Surgery: Yes Appendectomy: Yes (1981) Cardiac Surgery: Yes (stents 2003) Cholecystectomy: No Lung Surgery: No Neurologic Surgery: No Orthopedic Surgery: Yes (rt knee 1995) - Immunization History Td Vaccination: Yes Immunization Up to Date: Yes - Suicide/Smoking/Psychosocial Hx Smoking Status: No Smoking History: Unknown if ever smoked Have you smoked in the past 12 months: No Number of Cigarettes Smoked Daily: 0 If you are a former smoker, when did you quit?: 1989 Hx Alcohol Use: No Drug/Substance Use Hx: No Substance Use Type: None Hx Substance Use Treatment: No Review of Systems - Review of Systems Comments:: 06/19/18 19:04 Constitutional: No fevers, chills, fatigue, malaise HEENT: No Rhinorrhea, nasal congestion, visual changes Cardiovascular: No chest pain, syncope, palpitations, lightheadedness Respiratory: SOB. Dyspnea on Exertion. No Cough, Hemoptysis, Gastrointestinal: No Abdominal pain, Nausea, Vomiting, Constipation, Diarrhea, Melena Genitourinary: No Dysuria, Frequency, Urgency, Hesitancy, Hematuria, Flank pain Musculoskeletal: No Myalgia, arthralgia Skin: No rashes, itching, bruising, pallor Neurologic: No Headache, Dizziness, Numbness, Weakness, or Tingling Psychiatric: No Hallucinations. No SI or HI *Physical Exam - Vital Signs Last Vital Signs Temp Pulse Resp BP Pulse Ox 104 H 26 H 184/16 H 79 L 06/19/18 18:26 06/19/18 18:26 06/19/18 18:26 06/19/18 18:26 - Physical Exam Comments: 06/19/18 19:08 General Appearance: Nourished. Speaking in 2-3 word sentences. In Moderate Apparent Distress HEENT: EOMI, RONALDO. No Pharyngeal Erythema, Tonsillar Exudate, Tonsillar Erythema Neck: No Cervical Lymphadenopathy Respiratory/Chest: Lungs Clear, Normal Breath Sounds. Mild bibasilar rales noted on exam. No Crackles, Rhonchi, Wheezing Cardiovascular: Regular Rhythm, Tachycardic Rate. No Murmur, Gallops, Rubs Gastrointestinal/Abdominal: Normal Bowel Sounds, Soft. No Guarding, Rebound, Tenderness Musculoskeletal: No CVA Tenderness Extremity: Normal Capillary Refill Integumentary: Normal Color, Dry, Warm Neurologic: Fully Oriented, Alert, Normal Mood/Affect, Normal Response, ED Treatment Course - LABORATORY CBC & Chemistry Diagram: 06/19/18 18:43 06/19/18 18:09 Medical Decision Making - Medical Decision Making 06/19/18 19:11 The patient is a 72 year old male with a history of HTN, HLD, DM, LA, CAD, COPD , Pulmonary Fibrosis who presents for evaluation of shortness of breath. Differential includes but is not limited to: Pulmonary fibrosis, COPD, Infectious, Metabolic Derangement. Given the patient's history and physical exam, we will obtain a cbc, cmp, bnp, coags, troponin, abg, ekg, chest plain film, blood cultures, lactate to evaluate further. The patient was placed on high flow nasal canula with some improvement in his symptoms. We will treat with duonebs and solumedrol and continue to monitor and reassess while here in the ED. 06/19/18 22:20 CBC demonstrates an elevated wbc to 15. CMP demonstrates a calcium of 6.2. Lactate is elevated to 4.6. Chest plain film demonstrates congestive changes with possible left lower lobe infiltrate. We treated the patient with vanc, zosyn, and lasix. Given the patient's severe respiratory distress with multiple co-morbidities, the patient will require ICU admission for further management. We discussed the case with the ICU team who accepted the patient for ICU. We discussed the case with the admitting team who accepted the patient for admission. *DC/Admit/Observation/Transfer Diagnosis at time of Disposition: Respiratory distress, Pulmonary fibrosis CHF (congestive heart failure), NYHA class III Qualifiers: Congestive heart failure type: unspecified Qualified Code(s): I50.9 - Heart failure, unspecified Pneumonia Qualifiers: Pneumonia type: due to unspecified organism Laterality: unspecified laterality Lung location: unspecified part of lung Qualified Code(s): J18.9 - Pneumonia, unspecified organism - Discharge Dispostion Condition at time of disposition: Stable Decision to Admit order: Yes - Referrals - Patient Instructions - Post Discharge Activity
[2018-06-19] MEDS ORDERED: methylPREDNISolone NA SUCC 125 MG/2 ML VIAL IVPB ONE (18:32)
[2018-06-19] MEDS ORDERED: ALBUTEROL SO4 2.5/IPRATROPIUM 0.5 INH SOL 3 ML VIAL.NEB. NEB ONE ×2 (18:32→19:07)
--- NOTE | 2018-06-19 18:36 | PDOC ---
Rapid Medical Evaluation Chief Complaint: Respiratory Distress Time Seen by Provider: 06/19/18 18:08 Medical Evaluation: Allergies Allergy/AdvReac Type Severity Reaction Status Date / Time No Known Drug Allergies Allergy Verified 02/21/18 12:21 06/19/18 18:08 history of pulmonary fibrosis on oxygen at home c/o SOB worsening . PE; patient alert , SOB at rest A: respiratory distress P: labs portable chest xray patient to the ED for emergent care 06/19/18 18:35 Discharge Disposition - Diagnosis Respiratory distress - Referrals - Patient Instructions - Post Discharge Activity
[2018-06-19 19:03] LABS: BASO % 0.6 % (0-2.0); EOS % 0.5 % (0-4.5); HEMATOCRIT 46.7 % (35.4-49); HEMOGLOBIN 15.3 GM/dL (11.7-16.9); LYMPH % 13.9 % (8-40); MCH 29.6 pg (25.7-33.7); MCHC 32.7 g/dl (32.0-35.9); MEAN CELL VOLUME 90.5 fl (80-96); MEAN PLT VOLUME 8.7 fl (7.5-11.1); MONO % 5.5 % (3.8-10.2); NEUT % 79.5 % (42.8-82.8); PLATELET COUNT 218 K/MM3 (134-434); RBC 5.16 M/mm3 (4.00-5.60); RDW 16.1 % (11.9-15.9); WHITE BLOOD COUNT 15.9 K/mm3 (4.0-10.0)
[2018-06-19] MEDS ORDERED: methylPREDNISolone NA SUCC 125 MG/2 ML VIAL ONE (19:07)
[2018-06-19 19:14] LABS: ARTERIAL BLD GAS O2 SATURATION 89.6 % (95-98); ARTERIAL BLOOD GAS BASE EXCESS -3.1 meq/l (-2-2); ARTERIAL BLOOD GAS PCO2 28.4 mmHg (35-45); ARTERIAL BLOOD GAS PO2 58.6 mmHg (80-105); ARTERIAL BLOOD GAS pH 7.44 (7.35-7.45); CARBOXYHEMOGLOBIN 1.7 % (0-2)
[2018-06-19 19:20] LABS: INR 1.02 (0.83-1.09)
[2018-06-19 19:23] LABS: ACTIVATED PTT 32.1 SECONDS (25.2-36.5)
[2018-06-19] MEDS ORDERED: PIPERACILLIN/TAZOB 4.5 GM 4.5 GM in DEXTROSE 5%-WATER 100 ML IVPB ONE (19:35)
[2018-06-19] MEDS ORDERED: FUROSEMIDE 40 MG/4 ML INJECTABLE VIAL IVPUSH ONE (19:35)
[2018-06-19] MEDS ORDERED: VANCOMYCIN HCL 1,500 MG in DEXTROSE 5%-WATER - 500 ML IVPB ONE (19:35)
--- NOTE | 2018-06-19 19:42 | PDOC ---
Documentation entered by Iban Chris SCRIBE, acting as scribe for Liane Thomas DO. Liane Thomas DO: This documentation has been prepared by the Aries joshua Nirvannie, SCRIBE, under my direction and personally reviewed by me in its entirety. I confirm that the documentation accurately reflects all work, treatment, procedures, and medical decision making performed by me. Attending Attestation - Resident Resident Name: Manjit Goodwin - ED Attending Attestation I have performed the following: I have examined & evaluated the patient, The case was reviewed & discussed with the resident, I agree w/resident's findings & plan - HPI HPI: 06/19/18 19:35 The patient is a 72 year old male, with a significant past medical history of 2 recent hospital admissions (one at [facility] and one at [facility]), HTN, HLD, DM, [place] , CAD, COPD, Pulmonary Fibrosis, and sleep apnea, who presents to the emergency department with, acute on chronic shortness of breath. As per patient, he is normally on 2L of O2 but, today he had to raise his oxygen to 3L. Patient endorses conversational and exertional dyspnea, prompting his arrival to the ED. While in the ED, patient is saturating 78% on 3L. He denies any recent fevers, chills, headache or dizziness. He denies any recent nausea, vomit, diarrhea or constipation. He denies any recent chest pain or palpitations. He denies any recent dysuria, frequency, urgency or hematuria. Allergies: NKDA Welfare Worker: Dr. Mary Varela Industrial Chemist: Dr. Calle - Physicial Exam PE: 06/19/18 19:36 Constitutional: + Dusky appearing. Awake, alert, oriented. Head: Normocephalic. Atraumatic Eyes: PERRL. EOMI. Conjunctivae are not pale. ENT: Mucous membranes are moist and intact. Posterior pharynx without exudates or erythema. Uvula midline. Neck: Supple. Full ROM. No lymphadenopathy. Cardiovascular: Regular rate. Regular rhythm. S1, S2 regular. Distal pulses are 2+ and symmetric. Pulmonary/Chest: + respiratory distress. Clear short of breath. Tachypneic. Speaking in one word sentences. Diminished breath sounds blt, coarse breath sounds one the left base. No wheezing, rales or rhonchi. Abdominal: Soft and non-distended. There is no tenderness. No rebound, guarding or rigidity. No organomegaly. No palpable masses. Good bowel sounds. Back: No CVA tenderness. Musculoskeletal: +Trace pitting edema to the blt LE. No clubbing. Full range of motion in all extremities. No calf tenderness. Radial/pedal pulses are intact and 2+ bilaterally Skin: Skin is warm and dry. No petechiae. No purpura. Neurological: Alert and oriented to person, place, and time. Cranial nerves II -XII are grossly intact. Normal speech. Strength is grossly symmetric. No sensory deficits. Psychiatric: Good eye contact. Normal interaction, affect and behavior. - Critical Care Time Total Critical Care Time: 35 Critical Care Statement: The care of this patient involved high complexity decision making to prevent further life threatening deterioration of the patient 's condition and/or to evaluate & treat vital organ system(s) failure or risk of failure. - Medical Decision Making 06/19/18 19:39 I, Dr. Liane Thomas, DO, attest that this document has been prepared under my direction and personally reviewed by me in its entirety. I further attest, that it accurately reflects all work, treatment, procedures and medical decision -making performed by me. 06/19/18 19:39 a/p: 72yo male with hx of chf and pulm fibrosis -cards dr. calle -se - [facility] worsening sob x a few days -no f/c -pt arrives tachy, tachpnic, acute resp distress -speaking in 1 word sentences -increased lasix to 100mg daily -concern for chf and pulm fibrosis exacerbation -labs, cultures, xray, ekg -pt placed on high flow for acute hypoxia- pulse ox 72 on 3L nc -will monitor and reassess 06/19/18 19:40 pt feeling better on high flow pna, chf, pulm fibrosis on xray will start abx resident discussed the case with the ICU resident who will be down to eval the patient microblog sent to [facility] wbc 15 cultures sent 06/19/18 20:08 pt feeling much better speaking in fullsentences pulse ox 98% on high flow repeat abg pending 06/19/18 20:23 06/19/18 20:23 cr 3 ICU team at the bedside, hospitalist at the bedside pt will be admitted to the ICU
[2018-06-19] MEDS ORDERED: PIPERACILLIN/TAZOB 4.5 GM 4.5 GM/100 ML BAG IVPB ONE (20:02)
[2018-06-19] MEDS ORDERED: FUROSEMIDE 40 MG/4 ML INJECTABLE VIAL ONE (20:02)
[2018-06-19 20:19] LABS: ALBUMIN 1.9 g/dl (3.4-5.0); ALK PHOS 71 U/L (45-117); ANION GAP 16 MMOL/L (8-16); BILIRUBIN,TOTAL 0.8 mg/dL (0.2-1); BLOOD UREA NITROGEN 100 mg/dL (7-18); CHLORIDE 101 mmol/L (98-107); CO2 18 mmol/L (21-32); GLUCOSE,RANDOM 160 mg/dL (74-106); MAGNESIUM 2.3 mg/dL (1.8-2.4); POTASSIUM 4.8 mmol/L (3.5-5.1); SGOT/AST 44 U/L (15-37); SGPT/ALT 38 U/L (13-61); SODIUM 136 mmol/L (136-145); TOT PROT 7.6 g/dl (6.4-8.2)
[2018-06-19 20:25] LABS: CALCIUM 6.2 mg/dL (8.5-10.1)
--- NOTE | 2018-06-19 20:26 | CONSULT ---
Consultation: REQUESTING PROVIDER: Dr. Thomas CONSULT REQUEST: We have been asked to medically evaluate this patient for respiratory failure. HISTORY OF PRESENT ILLNESS: This is a 72 year old male with a PMHx of pulmonary fibrosis/ILD (on 3L 02), COPD, CAD s/p 3 stent placements, LA at age 47, systolic CHF, HTN, IDDMII, anxiety, BPH, CKD, who presents today progressive shortness of breath, unable to walk 6 feet with out severe dyspnea. Patient admits to accompanied with cough clear/yellow sputum production and mild leg swelling for the past week. Endorses a pressure like sensation of the right chest that is intermittent with exertion. Denies CANCINO, blurry vision, fever, chills, n, v, palpitations, abdominal pain, changes in bowel or bladder. ER found to be hypoxic in the 70s on 3L NC. He was placed on high flow oxygen; 50L; CXR with progressive congestive changes and possible left infiltrate. He was given 1x 40mg IV lasix; albuterol treatment and one tome vanc/zosyn. REVIEW OF SYSTEMS: as above PHYSICAL EXAMINATION Vital Signs - 24 hr 06/19/18 06/19/18 06/19/18 18:26 19:05 19:55 Pulse Rate 104 H 89 Pulse Rate [ 87 Apical] Respiratory 26 H 22 H Rate Blood Pressure 184/16 H Blood Pressure 120/109 H [Right Arm] O2 Sat by Pulse 79 L 99 98 Oximetry (%) GENERAL: Awake, alert, and fully oriented, on high flow oxygen; with respiratory distress when talking; HEAD: Normal with no signs of trauma. EYES: Pupils equal, round and reactive to light, extraocular movements intact, sclera anicteric, conjunctiva clear. eyes slightly bulging THROAT: Moist mucous membranes. NECK: Normal range of motion, supple without lymphadenopathy, JVD, or masses. LUNGS:decreased breath sounds upper b/l lobes; left sided crackle that do not clear with cough HEART: Regular rate and rhythm, normal S1 and S2 without murmur, rub or gallop. ABDOMEN: Soft, +distention; +BS MUSCULOSKELETAL: Normal range of motion at all joints. No bony deformities or tenderness. No CVA tenderness. UPPER EXTREMITIES: 2+ pulses, warm, well-perfused. No cyanosis. No clubbing. Cap refill <2 seconds. LOWER EXTREMITIES: 2+ pulses, warm, well-perfused. No calf tenderness. trace edema NEUROLOGICAL: Cranial nerves II-XII intact. Normal speech. PSYCHIATRIC: Cooperative. Good eye contact. Appropriate mood and affect. SKIN: Warm, dry, normal turgor, no rashes or lesions noted. Laboratory Results - last 24 hr 06/19/18 06/19/18 06/19/18 18:09 18:35 18:43 WBC 15.9 H RBC 5.16 Hgb 15.3 Hct 46.7 D MCV 90.5 MCH 29.6 MCHC 32.7 RDW 16.1 H Plt Count 218 D MPV 8.7 Absolute Neuts (auto) 12.6 H Neutrophils % 79.5 Lymphocytes % 13.9 D Monocytes % 5.5 Eosinophils % 0.5 D Basophils % 0.6 Nucleated RBC % 0 PT with INR INR PTT (Actin FS) Anticoagulation Therapy Puncture Site ABG pH ABG pCO2 at Pt Temp ABG pO2 at Pt Temp ABG HCO3 ABG O2 Sat (Measured) ABG O2 Content ABG Base Excess Maikel Test Carboxyhemoglobin Methemoglobin O2 Delivery Device Oxygen Flow Rate Vent Mode Vent Rate Mechanical Rate Pressure Support Vent Sodium 136 Potassium 4.8 Chloride 101 Carbon Dioxide 18 L Anion Gap 16 BUN 100 H Creatinine 3.0 H Creat Clearance w eGFR 20.79 Random Glucose 160 H Lactic Acid 4.6 H* Calcium 6.2 L* Magnesium 2.3 Total Bilirubin 0.8 AST 44 H ALT 38 Alkaline Phosphatase 71 Creatine Kinase 75 Troponin I < 0.02 B-Natriuretic Peptide Total Protein 7.6 Albumin 1.9 L 06/19/18 06/19/18 06/19/18 18:43 18:43 18:43 WBC RBC Hgb Hct MCV MCH MCHC RDW Plt Count MPV Absolute Neuts (auto) Neutrophils % Lymphocytes % Monocytes % Eosinophils % Basophils % Nucleated RBC % PT with INR 12.00 INR 1.02 PTT (Actin FS) 32.1 Anticoagulation Therapy No Result Required. Puncture Site No Result Required. ABG pH 7.44 ABG pCO2 at Pt Temp 28.4 L ABG pO2 at Pt Temp 58.6 L ABG HCO3 19.2 L ABG O2 Sat (Measured) 89.6 L ABG O2 Content 18.6 ABG Base Excess -3.1 L Maikel Test No Result Required. Carboxyhemoglobin 1.7 Methemoglobin 0.3 O2 Delivery Device No Result Required. Oxygen Flow Rate No Result Required. Vent Mode No Result Required. Vent Rate No Result Required. Mechanical Rate No Result Required. Pressure Support Vent No Result Required. Sodium Potassium Chloride Carbon Dioxide Anion Gap BUN Creatinine Creat Clearance w eGFR Random Glucose Lactic Acid Calcium Magnesium Total Bilirubin AST ALT Alkaline Phosphatase Creatine Kinase Troponin I B-Natriuretic Peptide 3540.0 H Total Protein Albumin Active Medications Generic Name Dose Route Start Last Admin Trade Name Freq PRN Reason Stop Dose Admin Vancomycin HCl 1,500 mg/ 500 mls @ 250 mls/hr 06/19/18 19:35 Dextrose IVPB 06/19/18 21:34 ONCE ONE ASSESSMENT/PLAN: This is a 72 year old male with a history of cad, htn, hld, CKD, DM, systolic chf, interstitial lung disease on home o2 and chronic steroids, who presents with shortness of breath and increase oxygen req on home 02. #Acute on chronic hypoxic respiratory failure secondary to COPD exacerbation/ vol overload/PNA with ILD #R/o PNA #Acute on chronic systolic heart failure #chest pain #Lactic acidosis #Acute on chronic renal failure #Leucocytosis #Uremia #Hypocalcemia #hx DMII #hx HTN #hx CAD #COPD #GOUT #hypoalbulinemia #sleep apnea -continue high flow oxygen; monitor requirements and work of breathing ; hold off on BiPAP for now -f/u chest CT; r/o PNA: progression of ILD vs vol overload -cont diuresis; hemodynamics permitting ; monitor electrolytes -strict I/O monitoring; daily wts -inhaled broncodilators -IV steroids -IV antibiotics empiric; -lactic acidosis; ML due to resp failure; hold fluids; repeat -urine lytes; hold arb due to ARF; avoid nephrotoxins; renal/ bladder US; renal consult -ecg with new t wave inversion v2-v5; trend trop; possible due to RT heart strain; echo in am; r/o acs; cardio consulted -continue asa, statin, bb -insulin SS, bgm -incentive spirometer DVT ppl ; heparin sq GI ppl : protonix Dispo: We will continue to follow the patient. Thank you for this consultative opportunity. Visit type - Emergency Visit Emergency Visit: Yes ED Registration Date: 06/19/18 Care time: The patient presented to the Emergency Department on the above date and was hospitalized for further evaluation of their emergent condition. - New Patient This patient is new to me today: Yes Date on this admission: 06/19/18 - Critical Care Critical Care patient: Yes Total Critical Care Time (in minutes): 40 Critical Care Statement: The care of this patient involved high complexity decision making to prevent further life threatening deterioration of the patient 's condition and/or to evaluate & treat vital organ system(s) failure or risk of failure.
[2018-06-19] MEDS ORDERED: CALCIUM GLUCONATE 10% - 1,000 MG/10 ML VIAL IVPUSH ONE (20:42)
[2018-06-19] MEDS ORDERED: ALBUTEROL SO4 0.083% IH SOL 2.5 MG/3 ML VIAL.NEB. NEB PRN (20:45)
--- NOTE | 2018-06-19 21:19 | PN ---
Teaching Attending Note Name of Resident: Hawa Rudd ATTENDING PHYSICIAN STATEMENT I saw and evaluated the patient. I reviewed the resident's note and discussed the case with the resident. I agree with the resident's findings and plan as documented. SUBJECTIVE: Patient is a 72 year old man with PMH of HTN, HLD, DM, NV, CAD, COPD, Pulmonary Fibrosis who presents for evaluation of shortness of breath. The patient is accompanied by family who assists in providing the history. They note a several day history of worsening shortness of breath and dyspnea on exertion prompting his presentation to the ED for further evaluation. He notes that he is usually on 2 L of home O2 and went up to 3L with no improvement in his symptoms. On presentation to the ED the patient was noted to have an O2 saturation of 78% on 3L. He otherwise denies fevers, chills, chest pain, cough, nausea, vomiting, abdominal pain, or changes with urination or bowel movements. Was started on high flow oxygen in the ER. OBJECTIVE: Alert Vital Signs Period Temp Pulse Resp BP Sys/Meraz Pulse Ox Last 24 Hr 87-104 22-26 120-184/16-109 79-100 HEENT: No Jaundice, eye redness or discharge, PERRLA, EOMI. Normocephalic, atraumatic. External ears are normal and hearing is grossly intact. No nasal discharge. Neck: Supple, nontender. No palpable adenopathy or thyromegaly. No JVD Chest: Good effort. Diminished breath sounds. Clear to percussion. Heart: Regular. No S3, rub or murmur Abdomen: Not distended, soft, nontender and no HSM. No rebound or guarding. Normal bowel sounds. Ext: Peripheral pulses intact. Leg edema. Skin: Warm and dry. No petechiae, rash or ecchymosis. Neuro: Alert. Oriented x3. CN 2-12 grossly intact. Sensation grossly intact in all four extremities and DTR are symmetric. Psych: Appropriate mood and affect. Good insight. Current Medications Generic Name Dose Route Start Last Admin Trade Name Freq PRN Reason Stop Dose Admin Albuterol Sulfate 1 amp 06/19/18 20:45 Ventolin 0.083% Nebulizer Soln - NEB Q1H PRN SHORT OF BREATH/WHEEZING Albuterol/Ipratropium 1 amp 06/20/18 08:00 Duoneb - NEB RQID [facility] Chlorhexidine Gluconate 1 applic 06/19/18 22:00 Hibiclens For Decolonization - TP HS [facility] Furosemide 40 mg 06/20/18 06:00 Lasix Injection - IVPUSH BID@0600,1400 [facility] Heparin Sodium (Porcine) 5,000 unit 06/20/18 06:00 Heparin - SQ TID [facility] Vancomycin HCl 1,500 mg/ 500 mls @ 250 mls/hr 06/19/18 19:35 Dextrose IVPB 06/19/18 21:34 ONCE ONE Azithromycin 500 mg/ Dextrose 250 mls @ 250 mls/hr 06/20/18 10:00 IVPB DAILY [facility] Ceftriaxone Sodium 1 mg/ 50 mls @ 100 mls/hr 06/20/18 21:05 Dextrose IVPB 06/20/18 21:34 ONCE ONE Insulin Aspart 1 vial 06/19/18 22:00 Novolog Vial Sliding Scale - SQ ACHS [facility] Protocol Methylprednisolone Sodium Succinate 60 mg 06/19/18 21:00 Solu-Medrol - IVPUSH Q8H [facility] Mupirocin 1 applic 06/19/18 22:00 Bactroban Ointment (For Decolonization) - NS 06/24/18 21:59 BID [facility] Home Medications Medication Instructions Recorded Albuterol Sulfate [Proair Hfa] 2 inh IH TID 02/21/18 Allopurinol [Zyloprim -] 50 mg PO DAILY 02/21/18 Cholecalciferol (Vitamin D3) 2,000 unit PO DAILY 02/21/18 [Vitamin D -] Dulaglutide [Trulicity] 1.5 mg SQ WEEKLY 02/21/18 Ezetimibe [Zetia -] 10 mg PO DAILY 02/21/18 Lactobacillus Acidophilus 1 each PO DAILY 02/21/18 [Acidophilus] Losartan Potassium [Cozaar -] 25 mg PO DAILY 02/21/18 Metoprolol Succinate 50 mg PO HS 02/21/18 Pantoprazole Sodium [Protonix] 40 mg PO DAILY 02/21/18 Pitavastatin Calcium [Livalo] 4 mg PO DAILY 02/21/18 Ubidecarenone [Co Q-10] 200 mg PO DAILY 02/21/18 Furosemide [Lasix] 100 mg PO DAILY 03/13/18 Insulin (Levemir) [Levemir Vial] 0 units SQ ASDIR 03/17/18 Insulin Sliding Scale [Novolog 0 units SQ ACHS 06/19/18 Vial Sliding Scale -] Nintedanib Esylate [Ofev] 150 mg PO DAILY 06/19/18 Prednisone 20 mg PO DAILY 06/19/18 Abnormal Lab Results 06/19/18 06/19/18 06/19/18 18:09 18:35 18:43 WBC 15.9 H RDW 16.1 H Absolute Neuts (auto) 12.6 H ABG pCO2 at Pt Temp ABG pO2 at Pt Temp ABG HCO3 ABG O2 Sat (Measured) ABG Base Excess Carbon Dioxide 18 L BUN 100 H Creatinine 3.0 H Random Glucose 160 H Lactic Acid 4.6 H* Calcium 6.2 L* AST 44 H B-Natriuretic Peptide Albumin 1.9 L 06/19/18 06/19/18 18:43 18:43 WBC RDW Absolute Neuts (auto) ABG pCO2 at Pt Temp 28.4 L ABG pO2 at Pt Temp 58.6 L ABG HCO3 19.2 L ABG O2 Sat (Measured) 89.6 L ABG Base Excess -3.1 L Carbon Dioxide BUN Creatinine Random Glucose Lactic Acid Calcium AST B-Natriuretic Peptide 3540.0 H Albumin ASSESSMENT AND PLAN: 1. Acute on chronic hypoxic respiratory failure - CXR shows increased bilateral interstitial infiltrates which is chronic, but there is now obscuring of the left CP angle and possible LLL infiltrate. Being admitted to the ICU and will continue high flow oxygen, solumedrol 60 mg q 8 hours, IV rocephin and azithromycin as well as duoneb. Will send urine for legionella antigen and get sputum culture. EKG shows anterolateral T-wave inversion and ST depression. Initial troponin is negative. Will rule out ACS and get ECHO. Lactic acidosis may be chiefly due to respiratory distress - will avoid aggressive IV fluids at this time. Trend lactic acid. Got IV lasix in the ER. Recent ECHO showed normal LVEF. May have associated diastolic dysfunction - will do a therapeutic trial of escalating doses of IV lasix, get daily weight and restrict dietary salt intake. Leg edema may be partly due to chronic hypoalbuminemia. 2. Hypoalbuminemia - Possibly due to combined effects of malnutrition and inflammation associated with comorbid chronic conditions. Will ensure adequate dietary protein intake and also consult foam cutting supervisor. UA pending to rule out proteinuria. 3. DM For now, we will hold the home diabetes drugs and implement sliding scale insulin regimen. Provide comprehensive diabetes care with patient teaching and counseling about the importance of adherence to prescribed diabetes regimen, euglycemia, eye care and foot care. 4. CKD/TAZ? - Cause unclear. Has been on lasix 100 mg po qd? apparently targeting his leg edema?. But if his leg edema is chiefly due to chronic low albumin, the lasix may be exacerbating intravascular volume contraction ( increasing BUN/Cr) without achieving the desired objective of reducing leg edema. Needs basic nephrologic workup. Will get UA, PTH, kidney sonogram and phosphate level. Consult nephrology and avoid nephrotoxic agents such as NSAIDS , aminoglycosides, contrast dyes and certain Alternative medicine products. Hold losartan temporarily. 5. Obesity Counseled on the risks associated with obesity. Will provide patient all the necessary assistance, counseling and positive reinforcement to facilitate weight loss. Consult foam cutting supervisor. 6. Hypertension - Restart outpatient antihypertensive drugs except losartan. Revise regimen to ensure smooth [id number] good BP control. Nonpharmacologic measures to control hypertension like weight loss, salt restriction and exercise discussed. 7. DVT prophylaxis - Heparin 5000u sq tid. 8. Advance directives - Full code
--- NOTE | 2018-06-19 21:20 | HP ---
CHIEF COMPLAINT: acute SOB PCP: Dr. Garrido HISTORY OF PRESENT ILLNESS: 72 y/o M with hx HTN, HLD, IDDM, CAD s/p 3 stents (on asa), COPD, pulm fibrosis (dx 2016), sleep apnea, past CHF however w/ last ECHO showing normal LV fnc, CKD , who presents to the ED with acute on chronic SOB over the last two weeks. As per pt and family members at bedside, pt has had SOB at rest and on exertion at baseline over the past two weeks. During this time, he endorses a productive cough with clear sputum and no blood. States that he "wasn't feeling himself." No sick contacts, has been on 3L 02 at baseline at home. However, today he noticed that his SOB was so severe that he was unable to talk without SOB. Was brought to the ED and appeared "dusky" as per ED providers, sat 78% on 3L 02. Was started immediately on high flow, diuresed with lasix 40mg IVP x 1, given medrol 125, vanc, zosyn. No fever, chills, SOB, chest pain or pressure, or changes in urinary or bowel function. Pt's PF is managed by Dr[facility] from [facility]. States he is on prednisone 10mg qd. Recently his lasix dose was also changed to 80mg qd by Dr. Calle (cardio). ER course was notable for: (1) lasix 40mg IVP x 1 (2) medrol 125 (3) vanc, zosyn (4) HF 02 Recent Travel: denies PAST MEDICAL HISTORY: as above PAST SURGICAL HISTORY: Appendectomy, Cataract Removal, CABG/STENT X3 in 2010 Social History: used to work in a [employer]. lives w family Smoking: Former smoker. Quit 30 years ago Alcohol: denies Drugs: denies Family History: denies Allergies No Known Drug Allergies Allergy (Verified 02/21/18 12:21) HOME MEDICATIONS: Home Medications Medication Instructions Recorded Albuterol Sulfate [Proair Hfa] 2 inh IH TID 02/21/18 Allopurinol [Zyloprim -] 50 mg PO DAILY 02/21/18 Cholecalciferol (Vitamin D3) 2,000 unit PO DAILY 02/21/18 [Vitamin D -] Dulaglutide [Trulicity] 1.5 mg SQ WEEKLY 02/21/18 Ezetimibe [Zetia -] 10 mg PO DAILY 02/21/18 Lactobacillus Acidophilus 1 each PO DAILY 02/21/18 [Acidophilus] Losartan Potassium [Cozaar -] 25 mg PO DAILY 02/21/18 Metoprolol Succinate 50 mg PO HS 02/21/18 Pantoprazole Sodium [Protonix] 40 mg PO DAILY 02/21/18 Pitavastatin Calcium [Livalo] 4 mg PO DAILY 02/21/18 Ubidecarenone [Co Q-10] 200 mg PO DAILY 02/21/18 Furosemide [Lasix] 100 mg PO DAILY 03/13/18 Insulin (Levemir) [Levemir Vial] 0 units SQ ASDIR 03/17/18 Insulin Sliding Scale [Novolog 0 units SQ ACHS 06/19/18 Vial Sliding Scale -] Nintedanib Esylate [Ofev] 150 mg PO DAILY 06/19/18 Prednisone 20 mg PO DAILY 06/19/18 REVIEW OF SYSTEMS CONSTITUTIONAL: Absent: fever, chills, diaphoresis, generalized weakness, malaise, loss of appetite, weight change HEENT: Absent: rhinorrhea, nasal congestion, throat pain, throat swelling, difficulty swallowing, mouth swelling, ear pain, eye pain, visual changes CARDIOVASCULAR: Absent: chest pain, syncope, palpitations, irregular heart rate, lightheadedness , peripheral edema RESPIRATORY: +cough, SOB Absent: cough, shortness of breath, dyspnea with exertion, orthopnea, wheezing, stridor, hemoptysis GASTROINTESTINAL: Absent: abdominal pain, abdominal distension, nausea, vomiting, diarrhea, constipation, melena, hematochezia GENITOURINARY: Absent: dysuria, frequency, urgency, hesitancy, hematuria, flank pain, genital pain MUSCULOSKELETAL: Absent: myalgia, arthralgia, joint swelling, back pain, neck pain SKIN: Absent: rash, itching, pallor HEMATOLOGIC/IMMUNOLOGIC: Absent: easy bleeding, easy bruising, lymphadenopathy, frequent infections ENDOCRINE: Absent: unexplained weight gain, unexplained weight loss, heat intolerance, cold intolerance NEUROLOGIC: Absent: headache, focal weakness or paresthesias, dizziness, unsteady gait, seizure, mental status changes, bladder or bowel incontinence PSYCHIATRIC: Absent: anxiety, depression, suicidal or homicidal ideation, hallucinations. PHYSICAL EXAMINATION Vital Signs - 24 hr 06/19/18 06/19/18 18:26 19:05 Pulse Rate 104 H 89 Pulse Rate [ Apical] Respiratory 26 H Rate Blood Pressure 184/16 H Blood Pressure [Right Arm] O2 Sat by Pulse 79 L 99 Oximetry (%) 06/19/18 19:55 Pulse Rate Pulse Rate [ 87 Apical] Respiratory 22 H Rate Blood Pressure Blood Pressure 120/109 H [Right Arm] O2 Sat by Pulse 98 Oximetry (%) GENERAL: on 02. Awake, alert, and fully oriented, in no acute distress. HEAD: Normal with no signs of trauma. EYES: Pupils equal, round and reactive to light, extraocular movements intact, sclera anicteric, conjunctiva clear. No lid lag. EARS, NOSE, THROAT: Ears normal, nares patent, oropharynx clear without exudates. Moist mucous membranes. NECK: Normal range of motion, supple LUNGS: +decreased BS. however w mild bibasilar crackles. HEART: Regular rate and rhythm, normal S1 and S2 without murmur, rub or gallop. ABDOMEN: Soft, obese, nontender, not distended, normoactive bowel sounds, no guarding LOWER EXTREMITIES: 2+ pt pulses, warm, well-perfused. No calf tenderness. trace pedal edema NEUROLOGICAL: Cranial nerves II-XII intact. PSYCHIATRIC: Cooperative. Laboratory Results 06/19/18 06/19/18 06/19/18 18:09 18:35 18:43 WBC 15.9 H Hgb 15.3 Hct 46.7 D Plt Count 218 D ABG O2 Sat (Measured) Sodium 136 Potassium 4.8 Chloride 101 Carbon Dioxide 18 L Anion Gap 16 BUN 100 H Creatinine 3.0 H Creat Clearance w eGFR 20.79 Random Glucose 160 H Lactic Acid 4.6 H* Calcium 6.2 L* AST 44 H Troponin I < 0.02 B-Natriuretic Peptide Total Protein 7.6 Albumin 1.9 L Triglycerides Pending Cholesterol Pending Total LDL Cholesterol Pending HDL Cholesterol Pending 06/19/18 06/19/18 18:43 18:43 Plt Count ABG pH 7.44 ABG pCO2 at Pt Temp 28.4 L ABG pO2 at Pt Temp 58.6 L ABG HCO3 19.2 L ABG O2 Sat (Measured) 89.6 L Sodium AST Troponin I B-Natriuretic Peptide 3540.0 H Total Protein Total LDL Cholesterol EKG: with new TWI in V4-v6 from previous. qtc 474ms CXR: congestive changes, L base infiltrate w/ fluid ASSESSMENT/PLAN: 72 y/o M with hx HTN, HLD, IDDM, CAD s/p 3 stents (on asa), COPD, pulm fibrosis (dx 2016), sleep apnea, past CHF however w/ last ECHO showing normal LV fnc, CKD , who presents to the ED with acute on chronic SOB over the last two weeks. #Acute hypoxic resp failure 2/2 pulm fibrosis, CAP, COPD -may also have aspect of CHF exacerbation however last ECHO LV fnc WNL -will give lasix 40mg IVP BID and watch I/O. daily wts -f/u chest CT -c/w cef, zithro. monitor qtc closely as 474ms -duonebs [place], nebs PRN -c/w medrol 60 q8h. give w protonix. -f/u blood cx, U for legionella, sputum cx -f/u lactic. likely elevated 2/2 initial tenuous resp status -titrate HF . sat 88-92 -Pulm consult: #R/o ACS #New EKG changes: TWI in v4-v6 from previous -trend trops. initial (-) -does not endorse chest pain currently -serial EKG -f/u lipid profile, ECHO -cardio consult: Dr. Calle #TAZ on CKD possible 2/2 decreased renal perfusion from CHF or from increased lasix dose -hold ARB -f/u urine lytes #HTN -hold losartan given TAZ -c/w metoprolol #HLD -c/w statin #IDDM -may be exacerbated by steroids -ISS, BGM ACHS -can start levemir 35u qHS tomorrow. was on previously #code status full code #F/E/N no IVF at this time continue to follow lytes na controlled diet #PPX DVT: hep 5k sq tid #Dispo admitted to ICU Visit type - Emergency Visit Emergency Visit: Yes ED Registration Date: 06/19/18 Care time: The patient presented to the Emergency Department on the above date and was hospitalized for further evaluation of their emergent condition. - New Patient This patient is new to me today: Yes Date on this admission: 06/20/18 - Critical Care Critical Care patient: Yes Total Critical Care Time (in minutes): 45 Critical Care Statement: The care of this patient involved high complexity decision making to prevent further life threatening deterioration of the patient 's condition and/or to evaluate & treat vital organ system(s) failure or risk of failure.
[2018-06-19 21:34] LABS: ARTERIAL BLD GAS O2 SATURATION 97.8 % (95-98); ARTERIAL BLOOD GAS BASE EXCESS -1.4 meq/l (-2-2); ARTERIAL BLOOD GAS PCO2 31.7 mmHg (35-45); ARTERIAL BLOOD GAS PO2 99.3 mmHg (80-105); ARTERIAL BLOOD GAS pH 7.44 (7.35-7.45); CARBOXYHEMOGLOBIN 1.7 % (0-2)
[2018-06-19] MEDS: methylPREDNISolone NA SUCC 125 MG/2 ML VIAL IVPUSH SCH (21:36)
[2018-06-19 21:39] LABS: CHOLESTEROL 158 mg/dL (50-200); HDL CHOLESTEROL 41 mg/dL (40-60); TRIGLYCERIDES 567 mg/dL (0-150)
[2018-06-19 21:48] LABS: ALLENS TEST POSITIVE
[2018-06-19] MEDS ORDERED: CALCIUM GLUCONATE 10% - 1,000 MG/10 ML VIAL ONE (22:07)
[2018-06-19 23:07] LABS: URINE APPEARANCE CLEAR; URINE BILIRUBIN NEGATIVE (NEGATIVE); URINE COLOR YELLOW; URINE GLUCOSE (UA) NEGATIVE (NEGATIVE); URINE KETONE NEGATIVE (NEGATIVE); URINE LEUK ESTERASE NEGATIVE (NEGATIVE); URINE NITRITE NEGATIVE (NEGATIVE); URINE PROTEIN TRACE (NEGATIVE); URINE UROBILINOGEN 0.2 mg/dL (0.2-1.0)
[2018-06-20 00:24] LABS: RATIO URIN PROTEIN/URIN CREAT 0.25 MG/DL
[2018-06-20] MEDS: INSULIN SLIDING SCALE (NOVOLOG) 1 VIAL SQ SCH ×5 (00:32→22:04)
[2018-06-20] MEDS: methylPREDNISolone NA SUCC 125 MG/2 ML VIAL IVPUSH SCH ×3 (05:34→21:04)
[2018-06-20] MEDS: FUROSEMIDE 40 MG/4 ML INJECTABLE VIAL IVPUSH SCH ×2 (05:38→13:05)
[2018-06-20] MEDS: HEPARIN NA (PORCINE) 5,000 UNITS/ML 1ML VIAL SQ SCH ×3 (05:38→21:05)
[2018-06-20 06:42] LABS: BASO % 0.1 % (0-2.0); HEMATOCRIT 43.6 % (35.4-49); HEMOGLOBIN 14.1 GM/dL (11.7-16.9); LYMPH % 7.4 % (8-40); MCH 28.7 pg (25.7-33.7); MCHC 32.5 g/dl (32.0-35.9); MEAN CELL VOLUME 88.4 fl (80-96); MEAN PLT VOLUME 8.5 fl (7.5-11.1); NEUT % 91.5 % (42.8-82.8); PLATELET COUNT 190 K/MM3 (134-434); RBC 4.93 M/mm3 (4.00-5.60); WHITE BLOOD COUNT 12.7 K/mm3 (4.0-10.0)
[2018-06-20 06:53] LABS: INR 1.06 (0.83-1.09); PROTHROMBIN TIME (PATIENT) 12.5 SEC (9.7-13.0)
[2018-06-20 06:57] LABS: ALBUMIN 3.3 g/dl (3.4-5.0); ALK PHOS 61 U/L (45-117); ANION GAP 13 MMOL/L (8-16); BILIRUBIN,TOTAL 0.6 mg/dL (0.2-1); BLOOD UREA NITROGEN 101 mg/dL (7-18); CALCIUM 8.8 mg/dL (8.5-10.1); CHLORIDE 98 mmol/L (98-107); CO2 23 mmol/L (21-32); CREATININE 2.6 mg/dL (0.55-1.3); GLUCOSE,RANDOM 266 mg/dL (74-106); MAGNESIUM 2.3 mg/dL (1.8-2.4); PHOSPHOROUS 6.2 mg/dL (2.5-4.9); POTASSIUM 4.6 mmol/L (3.5-5.1); SGOT/AST 22 U/L (15-37); SGPT/ALT 28 U/L (13-61); SODIUM 134 mmol/L (136-145); TOT PROT 6.7 g/dl (6.4-8.2)
[2018-06-20] MEDS: ALBUTEROL SO4 2.5/IPRATROPIUM 0.5 INH SOL 3 ML VIAL.NEB. NEB SCH ×4 (07:45→20:55)
[2018-06-20] MEDS: CHOLECALCIFEROL (VITAMIN D3) 1,000 UNIT TABLET (FP) PO SCH (09:49)
[2018-06-20] MEDS: ALLOPURINOL 100 MG TABLET (FP) PO SCH (09:49)
[2018-06-20] MEDS: AZITHROMYCIN IVPB 500 MG/250 ML BAG IVPB SCH (09:49)
[2018-06-20] MEDS: ASPIRIN COATED 81 MG TABLET.EC PO SCH (09:49)
[2018-06-20] MEDS: PANTOPRAZOLE 40 MG TABLET (FP) PO SCH (09:49)
[2018-06-20] MEDS: MUPIROCIN 2% TOPICAL OINTMENT FOR DECOLONIZATION NS SCH ×2 (10:00→21:11)
[2018-06-20] MEDS ORDERED: NINTEDANIB ESYLATE 150 MG PO SCH (10:00)
--- NOTE | 2018-06-20 10:00 | PN ---
Progress Note (short form) - Note Progress Note: Hospitalist to document today. CT chest shows no infiltrate or fluid but interstitial and COPD changes continue. Renal function is markedly elevated from baseline and may be contributing to his respiratory difficulties. On BiPaP
--- NOTE | 2018-06-20 10:53 | PN ---
Teaching Attending Note Name of Resident: Darren Head ATTENDING PHYSICIAN STATEMENT I saw and evaluated the patient. I reviewed the resident's note and discussed the case with the resident. I agree with the resident's findings and plan as documented. SUBJECTIVE: Patient seen and examined in the ICU. Awake and alert on HFOT (50%, 50L). Some dry cough. No hemoptysis. No CP. Intake & Output 06/17/18 06/18/18 06/19/18 06/20/18 23:59 23:59 23:59 23:59 Intake Total 20 Output Total 1020 Balance -1020 20 Weight 195 lb 183 lb 4.8 oz Last Vital Signs Temp Pulse Resp BP Pulse Ox 98.7 F 82 22 H 125/70 99 06/20/18 06:00 06/20/18 08:08 06/20/18 08:00 06/20/18 08:00 06/20/18 08:08 Active Medications Albuterol Sulfate (Ventolin 0.083% Nebulizer Soln -) 1 amp NEB Q1H PRN PRN Reason: SHORT OF BREATH/WHEEZING Albuterol/Ipratropium (Duoneb -) 1 amp NEB RQID [facility] Last Admin: 06/20/18 07:45 Dose: 1 amp Allopurinol (Zyloprim -) 50 mg PO DAILY [facility] Last Admin: 06/20/18 09:49 Dose: 50 mg Aspirin (Ecotrin -) 81 mg PO DAILY [facility] Last Admin: 06/20/18 09:49 Dose: 81 mg Atorvastatin Calcium (Lipitor -) 20 mg PO [facility] Chlorhexidine Gluconate (Hibiclens For Decolonization -) 1 applic TP [facility] Cholecalciferol (Vitamin D3 -) 2,000 unit PO DAILY [facility] Last Admin: 06/20/18 09:49 Dose: 2,000 unit Ezetimibe (Zetia -) 10 mg PO DAILY [facility] Furosemide (Lasix Injection -) 40 mg IVPUSH BID@0600,1400 [facility] Last Admin: 06/20/18 05:38 Dose: 40 mg Heparin Sodium (Porcine) (Heparin -) 5,000 unit SQ TID [facility] Last Admin: 06/20/18 05:38 Dose: 5,000 unit Azithromycin (Zithromax 500mg Ivpb (Pre-Docked)) 500 mg in 250 mls @ 250 mls/ hr IVPB DAILY [facility] Last Admin: 04/26/19 09:49 Dose: 250 mls/hr Ceftriaxone Sodium 1 gm/ (Dextrose) 50 mls @ 100 mls/hr IVPB ONCE ONE Stop: 06/20/18 21:34 Insulin Aspart (Novolog Vial Sliding Scale -) 1 vial SQ ACHS [facility]; Protocol Last Admin: 06/20/18 06:38 Dose: 6 units Methylprednisolone Sodium Succinate (Solu-Medrol -) 60 mg IVPUSH Q8H [facility] Last Admin: 06/20/18 05:34 Dose: 60 mg Metoprolol Succinate (Toprol Xl -) 50 mg PO HS [facility] Last Admin: 06/20/18 00:33 Dose: 50 mg Mupirocin (Bactroban Ointment (For Decolonization) -) 1 applic NS BID [facility] Stop: 06/25/18 09:59 Last Admin: 06/20/18 10:00 Dose: 1 applic Pantoprazole Sodium (Protonix -) 40 mg PO DAILY [facility] Last Admin: 06/20/18 09:49 Dose: 40 mg GENERAL: Awake, alert, and oriented, on high flow oxygen therapy, mildly tachypneic with speaking HEAD: Normal with no signs of trauma. EYES: Pupils equal, round and reactive to light, extraocular movements intact, sclera anicteric, conjunctiva clear. eyes slightly bulging THROAT: Moist mucous membranes. NECK: Normal range of motion, supple without lymphadenopathy, JVD, or masses. LUNGS: Coarse bibasilar crackles, no wheeze HEART: Regular rate and rhythm, normal S1 and S2 without murmur, rub or gallop. ABDOMEN: Soft, (+) BS MUSCULOSKELETAL: Normal range of motion at all joints. No bony deformities or tenderness. No CVA tenderness. UPPER EXTREMITIES: 2+ pulses, warm, well-perfused. No cyanosis. No clubbing. Cap refill <2 seconds. LOWER EXTREMITIES: 2+ pulses, warm, well-perfused. No calf tenderness. trace edema NEUROLOGICAL: Non-focal PSYCHIATRIC: Cooperative. Good eye contact. Appropriate mood and affect. SKIN: Warm, dry, normal turgor, no rashes or lesions noted. Laboratory Results - last 24 hr 06/19/18 06/19/18 06/19/18 18:09 18:35 18:43 WBC 15.9 H RBC 5.16 Hgb 15.3 Hct 46.7 D MCV 90.5 MCH 29.6 MCHC 32.7 RDW 16.1 H Plt Count 218 D MPV 8.7 Absolute Neuts (auto) 12.6 H Neutrophils % 79.5 Lymphocytes % 13.9 D Monocytes % 5.5 Eosinophils % 0.5 D Basophils % 0.6 Nucleated RBC % 0 PT with INR INR PTT (Actin FS) Anticoagulation Therapy Puncture Site ABG pH ABG pCO2 at Pt Temp ABG pO2 at Pt Temp ABG HCO3 ABG O2 Sat (Measured) ABG O2 Content ABG Base Excess Maikel Test Carboxyhemoglobin Methemoglobin O2 Delivery Device Oxygen Flow Rate Vent Mode Vent Rate Mechanical Rate Pressure Support Vent Sodium 136 Potassium 4.8 Chloride 101 Carbon Dioxide 18 L Anion Gap 16 BUN 100 H Creatinine 3.0 H Creat Clearance w eGFR 20.79 POC Glucometer Random Glucose 160 H Hemoglobin A1c % Lactic Acid 4.6 H* Calcium 6.2 L* Phosphorus Magnesium 2.3 Total Bilirubin 0.8 AST 44 H ALT 38 Alkaline Phosphatase 71 Creatine Kinase 75 Troponin I < 0.02 B-Natriuretic Peptide Total Protein 7.6 Albumin 1.9 L Triglycerides 567 H Cholesterol 158 Total LDL Cholesterol 84 HDL Cholesterol 41 Urine Color Urine Appearance Urine pH Ur Specific Rueter Urine Protein Urine Glucose (UA) Urine Ketones Urine Blood Urine Nitrite Urine Bilirubin Urine Urobilinogen Ur Leukocyte Esterase Ur Random Creatinine U Random Total Protein Ur Random Sodium Ur Random Chloride Urine Creatinine Protein/Creatinin Ratio Vancomycin Pre-Dose 06/19/18 06/19/18 06/19/18 18:43 18:43 18:43 WBC RBC Hgb Hct MCV MCH MCHC RDW Plt Count MPV Absolute Neuts (auto) Neutrophils % Lymphocytes % Monocytes % Eosinophils % Basophils % Nucleated RBC % PT with INR 12.00 INR 1.02 PTT (Actin FS) 32.1 Anticoagulation Therapy No Result Required. Puncture Site No Result Required. ABG pH 7.44 ABG pCO2 at Pt Temp 28.4 L ABG pO2 at Pt Temp 58.6 L ABG HCO3 19.2 L ABG O2 Sat (Measured) 89.6 L ABG O2 Content 18.6 ABG Base Excess -3.1 L Maikel Test No Result Required. Carboxyhemoglobin 1.7 Methemoglobin 0.3 O2 Delivery Device No Result Required. Oxygen Flow Rate No Result Required. Vent Mode No Result Required. Vent Rate No Result Required. Mechanical Rate No Result Required. Pressure Support Vent No Result Required. Sodium Potassium Chloride Carbon Dioxide Anion Gap BUN Creatinine Creat Clearance w eGFR POC Glucometer Random Glucose Hemoglobin A1c % Lactic Acid Calcium Phosphorus Magnesium Total Bilirubin AST ALT Alkaline Phosphatase Creatine Kinase Troponin I B-Natriuretic Peptide 3540.0 H Total Protein Albumin Triglycerides Cholesterol Total LDL Cholesterol HDL Cholesterol Urine Color Urine Appearance Urine pH Ur Specific Rueter Urine Protein Urine Glucose (UA) Urine Ketones Urine Blood Urine Nitrite Urine Bilirubin Urine Urobilinogen Ur Leukocyte Esterase Ur Random Creatinine U Random Total Protein Ur Random Sodium Ur Random Chloride Urine Creatinine Protein/Creatinin Ratio Vancomycin Pre-Dose 06/19/18 06/19/18 06/19/18 18:43 20:10 21:30 WBC RBC Hgb Hct MCV MCH MCHC RDW Plt Count MPV Absolute Neuts (auto) Neutrophils % Lymphocytes % Monocytes % Eosinophils % Basophils % Nucleated RBC % PT with INR INR PTT (Actin FS) Anticoagulation Therapy No Result Required. Puncture Site Left radial ABG pH 7.44 ABG pCO2 at Pt Temp 31.7 L ABG pO2 at Pt Temp 99.3 ABG HCO3 21.3 L ABG O2 Sat (Measured) 97.8 ABG O2 Content 19.1 ABG Base Excess -1.4 Maikel Test Positive Carboxyhemoglobin 1.7 Methemoglobin 0.3 O2 Delivery Device High flow Oxygen Flow Rate 53% Vent Mode No Result Required. Vent Rate No Result Required. Mechanical Rate No Result Required. Pressure Support Vent No Result Required. Sodium Potassium Chloride Carbon Dioxide Anion Gap BUN Creatinine Creat Clearance w eGFR POC Glucometer Random Glucose Hemoglobin A1c % 7.9 H Lactic Acid 1.7 Calcium Phosphorus Magnesium Total Bilirubin AST ALT Alkaline Phosphatase Creatine Kinase Troponin I B-Natriuretic Peptide Total Protein Albumin Triglycerides Cholesterol Total LDL Cholesterol HDL Cholesterol Urine Color Urine Appearance Urine pH Ur Specific Rueter Urine Protein Urine Glucose (UA) Urine Ketones Urine Blood Urine Nitrite Urine Bilirubin Urine Urobilinogen Ur Leukocyte Esterase Ur Random Creatinine U Random Total Protein Ur Random Sodium Ur Random Chloride Urine Creatinine Protein/Creatinin Ratio Vancomycin Pre-Dose 06/19/18 06/19/18 06/20/18 22:47 22:52 00:27 WBC RBC Hgb Hct MCV MCH MCHC RDW Plt Count MPV Absolute Neuts (auto) Neutrophils % Lymphocytes % Monocytes % Eosinophils % Basophils % Nucleated RBC % PT with INR INR PTT (Actin FS) Anticoagulation Therapy Puncture Site ABG pH ABG pCO2 at Pt Temp ABG pO2 at Pt Temp ABG HCO3 ABG O2 Sat (Measured) ABG O2 Content ABG Base Excess Maikel Test Carboxyhemoglobin Methemoglobin O2 Delivery Device Oxygen Flow Rate Vent Mode Vent Rate Mechanical Rate Pressure Support Vent Sodium Potassium Chloride Carbon Dioxide Anion Gap BUN Creatinine Creat Clearance w eGFR POC Glucometer 253 Random Glucose Hemoglobin A1c % Lactic Acid Calcium Phosphorus Magnesium Total Bilirubin AST ALT Alkaline Phosphatase Creatine Kinase Troponin I B-Natriuretic Peptide Total Protein Albumin Triglycerides Cholesterol Total LDL Cholesterol HDL Cholesterol Urine Color Yellow Urine Appearance Clear Urine pH 5.0 Ur Specific Rueter 1.014 Urine Protein Trace Urine Glucose (UA) Negative Urine Ketones Negative Urine Blood Negative Urine Nitrite Negative Urine Bilirubin Negative Urine Urobilinogen 0.2 Ur Leukocyte Esterase Negative Ur Random Creatinine 107 U Random Total Protein 27.6 H Ur Random Sodium 44 Ur Random Chloride 74 L Urine Creatinine 107.0 Protein/Creatinin Ratio 0.250 Vancomycin Pre-Dose 06/20/18 06/20/18 06/20/18 05:30 05:30 05:30 WBC 12.7 H RBC 4.93 Hgb 14.1 Hct 43.6 MCV 88.4 MCH 28.7 MCHC 32.5 RDW 16.0 H Plt Count 190 MPV 8.5 Absolute Neuts (auto) 11.6 H Neutrophils % 91.5 H Lymphocytes % 7.4 L D Monocytes % 1.0 L D Eosinophils % 0.0 D Basophils % 0.1 Nucleated RBC % 0 PT with INR 12.50 INR 1.06 PTT (Actin FS) Anticoagulation Therapy Puncture Site ABG pH ABG pCO2 at Pt Temp ABG pO2 at Pt Temp ABG HCO3 ABG O2 Sat (Measured) ABG O2 Content ABG Base Excess Maikel Test Carboxyhemoglobin Methemoglobin O2 Delivery Device Oxygen Flow Rate Vent Mode Vent Rate Mechanical Rate Pressure Support Vent Sodium Potassium Chloride Carbon Dioxide Anion Gap BUN Creatinine Creat Clearance w eGFR POC Glucometer Random Glucose Hemoglobin A1c % Lactic Acid Calcium Phosphorus Magnesium Total Bilirubin AST ALT Alkaline Phosphatase Creatine Kinase Troponin I B-Natriuretic Peptide Total Protein Albumin Triglycerides Cholesterol Total LDL Cholesterol HDL Cholesterol Urine Color Urine Appearance Urine pH Ur Specific Rueter Urine Protein Urine Glucose (UA) Urine Ketones Urine Blood Urine Nitrite Urine Bilirubin Urine Urobilinogen Ur Leukocyte Esterase Ur Random Creatinine U Random Total Protein Ur Random Sodium Ur Random Chloride Urine Creatinine Protein/Creatinin Ratio Vancomycin Pre-Dose 23.8 06/20/18 06/20/18 06/20/18 05:30 05:30 06:37 WBC RBC Hgb Hct MCV MCH MCHC RDW Plt Count MPV Absolute Neuts (auto) Neutrophils % Lymphocytes % Monocytes % Eosinophils % Basophils % Nucleated RBC % PT with INR INR PTT (Actin FS) Anticoagulation Therapy Puncture Site ABG pH ABG pCO2 at Pt Temp ABG pO2 at Pt Temp ABG HCO3 ABG O2 Sat (Measured) ABG O2 Content ABG Base Excess Maikel Test Carboxyhemoglobin Methemoglobin O2 Delivery Device Oxygen Flow Rate Vent Mode Vent Rate Mechanical Rate Pressure Support Vent Sodium 134 L Potassium 4.6 Chloride 98 Carbon Dioxide 23 Anion Gap 13 BUN 101 H Creatinine 2.6 H Creat Clearance w eGFR 24.53 POC Glucometer 271 Random Glucose 266 H Hemoglobin A1c % Lactic Acid Calcium 8.8 Phosphorus 6.2 H Magnesium 2.3 Total Bilirubin 0.6 AST 22 ALT 28 Alkaline Phosphatase 61 Creatine Kinase Troponin I 0.02 B-Natriuretic Peptide Total Protein 6.7 Albumin 3.3 L Triglycerides Cholesterol Total LDL Cholesterol HDL Cholesterol Urine Color Urine Appearance Urine pH Ur Specific Rueter Urine Protein Urine Glucose (UA) Urine Ketones Urine Blood Urine Nitrite Urine Bilirubin Urine Urobilinogen Ur Leukocyte Esterase Ur Random Creatinine U Random Total Protein Ur Random Sodium Ur Random Chloride Urine Creatinine Protein/Creatinin Ratio Vancomycin Pre-Dose 06/20/18 07:41 WBC RBC Hgb Hct MCV MCH MCHC RDW Plt Count MPV Absolute Neuts (auto) Neutrophils % Lymphocytes % Monocytes % Eosinophils % Basophils % Nucleated RBC % PT with INR INR PTT (Actin FS) Anticoagulation Therapy Puncture Site ABG pH ABG pCO2 at Pt Temp ABG pO2 at Pt Temp ABG HCO3 ABG O2 Sat (Measured) ABG O2 Content ABG Base Excess Maikel Test Carboxyhemoglobin Methemoglobin O2 Delivery Device Oxygen Flow Rate Vent Mode Vent Rate Mechanical Rate Pressure Support Vent Sodium Potassium Chloride Carbon Dioxide Anion Gap BUN Creatinine Creat Clearance w eGFR POC Glucometer Random Glucose Hemoglobin A1c % Lactic Acid 1.2 Calcium Phosphorus Magnesium Total Bilirubin AST ALT Alkaline Phosphatase Creatine Kinase Troponin I B-Natriuretic Peptide Total Protein Albumin Triglycerides Cholesterol Total LDL Cholesterol HDL Cholesterol Urine Color Urine Appearance Urine pH Ur Specific Rueter Urine Protein Urine Glucose (UA) Urine Ketones Urine Blood Urine Nitrite Urine Bilirubin Urine Urobilinogen Ur Leukocyte Esterase Ur Random Creatinine U Random Total Protein Ur Random Sodium Ur Random Chloride Urine Creatinine Protein/Creatinin Ratio Vancomycin Pre-Dose ASSESSMENT/PLAN: Acute hypoxic respiratory failure secondary to COPD / ILD R/O PNA Do not suspect Volume overload Chronic systolic heart failure Cest pain Lactic acidosis CKD Leukocytosis DMII HTN CAD COPD Gout Sleep apnea New EKG changes Wean HFOT Would not further diurese Strict I/O monitoring; daily wts Inhaled broncodilators Short course of IV steroids Noted empiric ABX PO as tolerated VTE prophylaxis Requires ICU monitoring while on High Flow O2 Dr Liz Critical care time spent in reviewing chart, evaluating patient and formulating plan - 36 minutes.
--- NOTE | 2018-06-20 10:54 | ECHO ---
Name: FACUNDO MCFARLANE Exam:Adult Echocardiogram Study Date: 06/20/2018 07:55 AM Age: 72 yrs Reason For Study: LV Function Height: 67 in Weight: 195 lb BSA: 2.0 m2 MMode/2D Measurements & Calculations IVSd: 0.93 cm Ao root diam: 2.8 cm LVIDd: 4.9 cm LA dimension: 2.1 cm LVIDs: 3.4 cm LVPWd: 0.87 cm EDV(Teich): 113.9 ml LVOT diam: 2.0 cm ESV(Teich): 49.1 ml Doppler Measurements & Calculations MV E max wes: 59.7 cm/sec Ao V2 max: 115.4 cm/sec MV A max wes: 108.7 cm/sec Ao max P.3 mmHg MV E/A: 0.55 MV dec time: 0.07 sec LACIE(V,D): 1.9 cm2 LV V1 max P.9 mmHg PA V2 max: 85.5 cm/sec LV V1 max: 68.4 cm/sec PA max P.9 mmHg Med Peak E' Wes: 16.8 cm/sec PI Vmax: 101.8 cm/sec Med E/e': 3.6 Lat Peak E' Wes: 7.9 cm/sec Lat E/e': 7.5 Procedure The study was technically difficult with many images being suboptimal in quality. Left Ventricle Left ventricular systolic function is borderline reduced. Ejection Fraction = 45-50%. The transmitral spectral Doppler flow pattern is suggestive of impaired LV relaxation. Regional wall motion abnormalities gurinder ot be excluded due to limited visualization. There is borderline global hypokinesis of the left ventricle. Right Ventricle The right ventricle is mildly dilated. The right ventricular systolic function is mildly reduced. Atria Normal left and right atrial size and function. Mitral Valve The mitral valve is grossly normal. There is no mitral valve stenosis. There is trace mitral regurgit ation. Tricuspid Valve The tricuspid valve is not well visualized, but is grossly normal. There is trace tricuspid regurgita tion. There was insufficient TR detected to calculate RV systolic pressure. Aortic Valve The aortic valve opens well. No hemodynamically significant valvular aortic stenosis. No aortic regur gitation is present. Pulmonic Valve The pulmonic valve is not well seen, but is grossly normal. There is no pulmonic valvular stenosis. Great Vessels The aortic root is normal size. Pericardium/Pleura There is no pericardial effusion. Interpretation Summary The study was technically difficult with many images being suboptimal in quality. Regional wall motion abnormalities cannot be excluded due to limited visualization. There is borderline global hypokinesis of the left ventricle. Left ventricular systolic function is borderline reduced. Ejection Fraction = 45-50%. The right ventricle is mildly dilated. The right ventricular systolic function is mildly reduced. The transmitral spectral Doppler flow pattern is suggestive of impaired LV relaxation. There is trace tricuspid regurgitation. There was insufficient TR detected to calculate RV systolic pressure. There is no pericardial effusion. MD Peter *Mally 06/20/2018 10:54 AM
[2018-06-20 11:12] LABS: ANISOCYTOSIS 0; MACROCYTOSIS 0; PLATELET ESTIMATE NORMAL
--- NOTE | 2018-06-20 11:24 | EKG ---
Test Reason : Blood Pressure : / mmHG Vent. Rate : 082 BPM Atrial Rate : 082 BPM P-R Int : 200 ms QRS Dur : 106 ms QT Int : 406 ms P-R-T Axes : 032 -10 -26 degrees QTc Int : 474 ms POOR DATA QUALITY, INTERPRETATION MAY BE ADVERSELY AFFECTED NORMAL SINUS RHYTHM MODERATE VOLTAGE CRITERIA FOR LVH, MAY BE NORMAL VARIANT INFERIOR INFARCT (CITED ON OR BEFORE 18-OCT-1999) ABNORMAL ECG Confirmed by MARAH ROGERS MD ([id number]) on 06/20/2018 11:23:53 AM Referred By: Confirmed By:MARAH ROGERS MD
[2018-06-20] MEDS: EZETIMIBE 10 MG TABLET (FP) PO SCH (11:32)
[2018-06-20 11:40] LABS: URINE APPEARANCE CLEAR; URINE BILIRUBIN NEGATIVE (NEGATIVE); URINE COLOR YELLOW; URINE GLUCOSE (UA) NEGATIVE (NEGATIVE); URINE KETONE NEGATIVE (NEGATIVE); URINE LEUK ESTERASE NEGATIVE (NEGATIVE); URINE NITRITE NEGATIVE (NEGATIVE); URINE PROTEIN TRACE (NEGATIVE); URINE UROBILINOGEN 0.2 mg/dL (0.2-1.0)
[2018-06-20] MEDS ORDERED: INSULIN (LEVEMIR) 100 UNITS/ML UNITS SQ ONE (14:38)
--- NOTE | 2018-06-20 14:41 | PN ---
Physical Exam: SUBJECTIVE: Patient seen and examined, breathing improved. No new chest pain or concerns OBJECTIVE: Vital Signs Period Temp Pulse Resp BP Sys/Meraz Pulse Ox Last 24 Hr 98.2 F-98.7 F 74-104 18-26 90-184/16-109 79-100 GENERAL: The patient is awake, alert, on high flow oxygen, mild tachynea Chest; bibasilar rales, no wheezing, decreased air entry all over Abdomen;Soft, obese, NT, no suprapubic or CVA tenderness Extremities: trace pedal edema Psych: pleasant, co-operative Laboratory Results - last 24 hr 06/19/18 06/19/18 06/19/18 06:00 18:09 18:35 WBC RBC Hgb Hct MCV MCH MCHC RDW Plt Count MPV Absolute Neuts (auto) Neutrophils % Neutrophils % (Manual) Band Neutrophils % Lymphocytes % Lymphocytes % (Manual) Monocytes % Monocytes % (Manual) Eosinophils % Eosinophils % (Manual) Basophils % Basophils % (Manual) Myelocytes % (Man) Promyelocytes % (Man) Blast Cells % (Manual) Nucleated RBC % Metamyelocytes Hypochromia Platelet Estimate Polychromasia Poikilocytosis Anisocytosis Microcytosis Macrocytosis PT with INR INR PTT (Actin FS) Anticoagulation Therapy Puncture Site ABG pH ABG pCO2 at Pt Temp ABG pO2 at Pt Temp ABG HCO3 ABG O2 Sat (Measured) ABG O2 Content ABG Base Excess Maikel Test Carboxyhemoglobin Methemoglobin O2 Delivery Device Oxygen Flow Rate Vent Mode Vent Rate Mechanical Rate Pressure Support Vent Sodium 136 Potassium 4.8 Chloride 101 Carbon Dioxide 18 L Anion Gap 16 BUN 100 H Creatinine 3.0 H Creat Clearance w eGFR 20.79 POC Glucometer Random Glucose 160 H Hemoglobin A1c % Lactic Acid 4.6 H* Calcium 6.2 L* Phosphorus Magnesium 2.3 Total Bilirubin 0.8 AST 44 H ALT 38 Alkaline Phosphatase 71 Creatine Kinase 75 Troponin I < 0.02 B-Natriuretic Peptide Total Protein 7.6 Albumin 1.9 L Triglycerides 567 H Cholesterol 158 Total LDL Cholesterol 84 HDL Cholesterol 41 TSH Urine Color Yellow Urine Appearance Clear Urine pH 5.0 Ur Specific [place] 1.012 Urine Protein Trace Urine Glucose (UA) Negative Urine Ketones Negative Urine Blood Negative Urine Nitrite Negative Urine Bilirubin Negative Urine Urobilinogen 0.2 Ur Leukocyte Esterase Negative Ur Random Creatinine U Random Total Protein Ur Random Sodium Ur Random Potassium Ur Random Chloride Urine Creatinine Protein/Creatinin Ratio Vancomycin Pre-Dose Influenza A (Rapid) Influenza B (Rapid) 06/19/18 06/19/18 06/19/18 18:43 18:43 18:43 WBC 15.9 H RBC 5.16 Hgb 15.3 Hct 46.7 D MCV 90.5 MCH 29.6 MCHC 32.7 RDW 16.1 H Plt Count 218 D MPV 8.7 Absolute Neuts (auto) 12.6 H Neutrophils % 79.5 Neutrophils % (Manual) Band Neutrophils % Lymphocytes % 13.9 D Lymphocytes % (Manual) Monocytes % 5.5 Monocytes % (Manual) Eosinophils % 0.5 D Eosinophils % (Manual) Basophils % 0.6 Basophils % (Manual) Myelocytes % (Man) Promyelocytes % (Man) Blast Cells % (Manual) Nucleated RBC % 0 Metamyelocytes Hypochromia Platelet Estimate Polychromasia Poikilocytosis Anisocytosis Microcytosis Macrocytosis PT with INR 12.00 INR 1.02 PTT (Actin FS) 32.1 Anticoagulation Therapy Puncture Site ABG pH ABG pCO2 at Pt Temp ABG pO2 at Pt Temp ABG HCO3 ABG O2 Sat (Measured) ABG O2 Content ABG Base Excess Maikel Test Carboxyhemoglobin Methemoglobin O2 Delivery Device Oxygen Flow Rate Vent Mode Vent Rate Mechanical Rate Pressure Support Vent Sodium Potassium Chloride Carbon Dioxide Anion Gap BUN Creatinine Creat Clearance w eGFR POC Glucometer Random Glucose Hemoglobin A1c % Lactic Acid Calcium Phosphorus Magnesium Total Bilirubin AST ALT Alkaline Phosphatase Creatine Kinase Troponin I B-Natriuretic Peptide 3540.0 H Total Protein Albumin Triglycerides Cholesterol Total LDL Cholesterol HDL Cholesterol TSH Urine Color Urine Appearance Urine pH Ur Specific [place] Urine Protein Urine Glucose (UA) Urine Ketones Urine Blood Urine Nitrite Urine Bilirubin Urine Urobilinogen Ur Leukocyte Esterase Ur Random Creatinine U Random Total Protein Ur Random Sodium Ur Random Potassium Ur Random Chloride Urine Creatinine Protein/Creatinin Ratio Vancomycin Pre-Dose Influenza A (Rapid) Influenza B (Rapid) 06/19/18 06/19/18 06/19/18 18:43 18:43 20:10 WBC RBC Hgb Hct MCV MCH MCHC RDW Plt Count MPV Absolute Neuts (auto) Neutrophils % Neutrophils % (Manual) Band Neutrophils % Lymphocytes % Lymphocytes % (Manual) Monocytes % Monocytes % (Manual) Eosinophils % Eosinophils % (Manual) Basophils % Basophils % (Manual) Myelocytes % (Man) Promyelocytes % (Man) Blast Cells % (Manual) Nucleated RBC % Metamyelocytes Hypochromia Platelet Estimate Polychromasia Poikilocytosis Anisocytosis Microcytosis Macrocytosis PT with INR INR PTT (Actin FS) Anticoagulation Therapy No Result Required. No Result Required. Puncture Site No Result Required. Left radial ABG pH 7.44 7.44 ABG pCO2 at Pt Temp 28.4 L 31.7 L ABG pO2 at Pt Temp 58.6 L 99.3 ABG HCO3 19.2 L 21.3 L ABG O2 Sat (Measured) 89.6 L 97.8 ABG O2 Content 18.6 19.1 ABG Base Excess -3.1 L -1.4 Maikel Test No Result Required. Positive Carboxyhemoglobin 1.7 1.7 Methemoglobin 0.3 0.3 O2 Delivery Device No Result Required. High flow Oxygen Flow Rate No Result Required. 53% Vent Mode No Result Required. No Result Required. Vent Rate No Result Required. No Result Required. Mechanical Rate No Result Required. No Result Required. Pressure Support Vent No Result Required. No Result Required. Sodium Potassium Chloride Carbon Dioxide Anion Gap BUN Creatinine Creat Clearance w eGFR POC Glucometer Random Glucose Hemoglobin A1c % 7.9 H Lactic Acid Calcium Phosphorus Magnesium Total Bilirubin AST ALT Alkaline Phosphatase Creatine Kinase Troponin I B-Natriuretic Peptide Total Protein Albumin Triglycerides Cholesterol Total LDL Cholesterol HDL Cholesterol TSH Urine Color Urine Appearance Urine pH Ur Specific [place] Urine Protein Urine Glucose (UA) Urine Ketones Urine Blood Urine Nitrite Urine Bilirubin Urine Urobilinogen Ur Leukocyte Esterase Ur Random Creatinine U Random Total Protein Ur Random Sodium Ur Random Potassium Ur Random Chloride Urine Creatinine Protein/Creatinin Ratio Vancomycin Pre-Dose Influenza A (Rapid) Influenza B (Rapid) 06/19/18 06/19/18 06/19/18 21:30 22:47 22:52 WBC RBC Hgb Hct MCV MCH MCHC RDW Plt Count MPV Absolute Neuts (auto) Neutrophils % Neutrophils % (Manual) Band Neutrophils % Lymphocytes % Lymphocytes % (Manual) Monocytes % Monocytes % (Manual) Eosinophils % Eosinophils % (Manual) Basophils % Basophils % (Manual) Myelocytes % (Man) Promyelocytes % (Man) Blast Cells % (Manual) Nucleated RBC % Metamyelocytes Hypochromia Platelet Estimate Polychromasia Poikilocytosis Anisocytosis Microcytosis Macrocytosis PT with INR INR PTT (Actin FS) Anticoagulation Therapy Puncture Site ABG pH ABG pCO2 at Pt Temp ABG pO2 at Pt Temp ABG HCO3 ABG O2 Sat (Measured) ABG O2 Content ABG Base Excess Maikel Test Carboxyhemoglobin Methemoglobin O2 Delivery Device Oxygen Flow Rate Vent Mode Vent Rate Mechanical Rate Pressure Support Vent Sodium Potassium Chloride Carbon Dioxide Anion Gap BUN Creatinine Creat Clearance w eGFR POC Glucometer Random Glucose Hemoglobin A1c % Lactic Acid 1.7 Calcium Phosphorus Magnesium Total Bilirubin AST ALT Alkaline Phosphatase Creatine Kinase Troponin I B-Natriuretic Peptide Total Protein Albumin Triglycerides Cholesterol Total LDL Cholesterol HDL Cholesterol TSH Urine Color Yellow Urine Appearance Clear Urine pH 5.0 Ur Specific [place] 1.014 Urine Protein Trace Urine Glucose (UA) Negative Urine Ketones Negative Urine Blood Negative Urine Nitrite Negative Urine Bilirubin Negative Urine Urobilinogen 0.2 Ur Leukocyte Esterase Negative Ur Random Creatinine 107 U Random Total Protein 27.6 H Ur Random Sodium 44 Ur Random Potassium 55.0 Ur Random Chloride 74 L Urine Creatinine 107.0 Protein/Creatinin Ratio 0.250 Vancomycin Pre-Dose Influenza A (Rapid) Influenza B (Rapid) 06/20/18 06/20/18 06/20/18 00:27 05:30 05:30 WBC 12.7 H RBC 4.93 Hgb 14.1 Hct 43.6 MCV 88.4 MCH 28.7 MCHC 32.5 RDW 16.0 H Plt Count 190 MPV 8.5 Absolute Neuts (auto) 11.6 H Neutrophils % 91.5 H Neutrophils % (Manual) 93.1 H Band Neutrophils % 0.0 Lymphocytes % 7.4 L D Lymphocytes % (Manual) 5.9 L D Monocytes % 1.0 L D Monocytes % (Manual) 1 L D Eosinophils % 0.0 D Eosinophils % (Manual) 0.0 Basophils % 0.1 Basophils % (Manual) 0.0 Myelocytes % (Man) 0 Promyelocytes % (Man) 0 Blast Cells % (Manual) 0 Nucleated RBC % 0 Metamyelocytes 0 Hypochromia 0 Platelet Estimate Normal Polychromasia 0 Poikilocytosis 0 Anisocytosis 0 Microcytosis 0 Macrocytosis 0 PT with INR INR PTT (Actin FS) Anticoagulation Therapy Puncture Site ABG pH ABG pCO2 at Pt Temp ABG pO2 at Pt Temp ABG HCO3 ABG O2 Sat (Measured) ABG O2 Content ABG Base Excess Maikel Test Carboxyhemoglobin Methemoglobin O2 Delivery Device Oxygen Flow Rate Vent Mode Vent Rate Mechanical Rate Pressure Support Vent Sodium Potassium Chloride Carbon Dioxide Anion Gap BUN Creatinine Creat Clearance w eGFR POC Glucometer 253 Random Glucose Hemoglobin A1c % Lactic Acid Calcium Phosphorus Magnesium Total Bilirubin AST ALT Alkaline Phosphatase Creatine Kinase Troponin I B-Natriuretic Peptide Total Protein Albumin Triglycerides Cholesterol Total LDL Cholesterol HDL Cholesterol TSH Urine Color Urine Appearance Urine pH Ur Specific [place] Urine Protein Urine Glucose (UA) Urine Ketones Urine Blood Urine Nitrite Urine Bilirubin Urine Urobilinogen Ur Leukocyte Esterase Ur Random Creatinine U Random Total Protein Ur Random Sodium Ur Random Potassium Ur Random Chloride Urine Creatinine Protein/Creatinin Ratio Vancomycin Pre-Dose 23.8 Influenza A (Rapid) Influenza B (Rapid) 06/20/18 06/20/18 06/20/18 05:30 05:30 05:30 WBC RBC Hgb Hct MCV MCH MCHC RDW Plt Count MPV Absolute Neuts (auto) Neutrophils % Neutrophils % (Manual) Band Neutrophils % Lymphocytes % Lymphocytes % (Manual) Monocytes % Monocytes % (Manual) Eosinophils % Eosinophils % (Manual) Basophils % Basophils % (Manual) Myelocytes % (Man) Promyelocytes % (Man) Blast Cells % (Manual) Nucleated RBC % Metamyelocytes Hypochromia Platelet Estimate Polychromasia Poikilocytosis Anisocytosis Microcytosis Macrocytosis PT with INR 12.50 INR 1.06 PTT (Actin FS) Anticoagulation Therapy Puncture Site ABG pH ABG pCO2 at Pt Temp ABG pO2 at Pt Temp ABG HCO3 ABG O2 Sat (Measured) ABG O2 Content ABG Base Excess Maikel Test Carboxyhemoglobin Methemoglobin O2 Delivery Device Oxygen Flow Rate Vent Mode Vent Rate Mechanical Rate Pressure Support Vent Sodium 134 L Potassium 4.6 Chloride 98 Carbon Dioxide 23 Anion Gap 13 BUN 101 H Creatinine 2.6 H Creat Clearance w eGFR 24.53 POC Glucometer Random Glucose 266 H Hemoglobin A1c % Lactic Acid Calcium 8.8 Phosphorus 6.2 H Magnesium 2.3 Total Bilirubin 0.6 AST 22 ALT 28 Alkaline Phosphatase 61 Creatine Kinase Troponin I 0.02 B-Natriuretic Peptide Total Protein 6.7 Albumin 3.3 L Triglycerides Cholesterol Total LDL Cholesterol HDL Cholesterol TSH 0.30 L Urine Color Urine Appearance Urine pH Ur Specific [place] Urine Protein Urine Glucose (UA) Urine Ketones Urine Blood Urine Nitrite Urine Bilirubin Urine Urobilinogen Ur Leukocyte Esterase Ur Random Creatinine U Random Total Protein Ur Random Sodium Ur Random Potassium Ur Random Chloride Urine Creatinine Protein/Creatinin Ratio Vancomycin Pre-Dose Influenza A (Rapid) Influenza B (Rapid) 06/20/18 06/20/18 06/20/18 06:37 07:41 11:05 WBC RBC Hgb Hct MCV MCH MCHC RDW Plt Count MPV Absolute Neuts (auto) Neutrophils % Neutrophils % (Manual) Band Neutrophils % Lymphocytes % Lymphocytes % (Manual) Monocytes % Monocytes % (Manual) Eosinophils % Eosinophils % (Manual) Basophils % Basophils % (Manual) Myelocytes % (Man) Promyelocytes % (Man) Blast Cells % (Manual) Nucleated RBC % Metamyelocytes Hypochromia Platelet Estimate Polychromasia Poikilocytosis Anisocytosis Microcytosis Macrocytosis PT with INR INR PTT (Actin FS) Anticoagulation Therapy Puncture Site ABG pH ABG pCO2 at Pt Temp ABG pO2 at Pt Temp ABG HCO3 ABG O2 Sat (Measured) ABG O2 Content ABG Base Excess Maikel Test Carboxyhemoglobin Methemoglobin O2 Delivery Device Oxygen Flow Rate Vent Mode Vent Rate Mechanical Rate Pressure Support Vent Sodium Potassium Chloride Carbon Dioxide Anion Gap BUN Creatinine Creat Clearance w eGFR POC Glucometer 271 442 Random Glucose Hemoglobin A1c % Lactic Acid 1.2 Calcium Phosphorus Magnesium Total Bilirubin AST ALT Alkaline Phosphatase Creatine Kinase Troponin I B-Natriuretic Peptide Total Protein Albumin Triglycerides Cholesterol Total LDL Cholesterol HDL Cholesterol TSH Urine Color Urine Appearance Urine pH Ur Specific [place] Urine Protein Urine Glucose (UA) Urine Ketones Urine Blood Urine Nitrite Urine Bilirubin Urine Urobilinogen Ur Leukocyte Esterase Ur Random Creatinine U Random Total Protein Ur Random Sodium Ur Random Potassium Ur Random Chloride Urine Creatinine Protein/Creatinin Ratio Vancomycin Pre-Dose Influenza A (Rapid) Influenza B (Rapid) 06/20/18 13:00 WBC RBC Hgb Hct MCV MCH MCHC RDW Plt Count MPV Absolute Neuts (auto) Neutrophils % Neutrophils % (Manual) Band Neutrophils % Lymphocytes % Lymphocytes % (Manual) Monocytes % Monocytes % (Manual) Eosinophils % Eosinophils % (Manual) Basophils % Basophils % (Manual) Myelocytes % (Man) Promyelocytes % (Man) Blast Cells % (Manual) Nucleated RBC % Metamyelocytes Hypochromia Platelet Estimate Polychromasia Poikilocytosis Anisocytosis Microcytosis Macrocytosis PT with INR INR PTT (Actin FS) Anticoagulation Therapy Puncture Site ABG pH ABG pCO2 at Pt Temp ABG pO2 at Pt Temp ABG HCO3 ABG O2 Sat (Measured) ABG O2 Content ABG Base Excess Maikel Test Carboxyhemoglobin Methemoglobin O2 Delivery Device Oxygen Flow Rate Vent Mode Vent Rate Mechanical Rate Pressure Support Vent Sodium Potassium Chloride Carbon Dioxide Anion Gap BUN Creatinine Creat Clearance w eGFR POC Glucometer Random Glucose Hemoglobin A1c % Lactic Acid Calcium Phosphorus Magnesium Total Bilirubin AST ALT Alkaline Phosphatase Creatine Kinase Troponin I B-Natriuretic Peptide Total Protein Albumin Triglycerides Cholesterol Total LDL Cholesterol HDL Cholesterol TSH Urine Color Urine Appearance Urine pH Ur Specific [place] Urine Protein Urine Glucose (UA) Urine Ketones Urine Blood Urine Nitrite Urine Bilirubin Urine Urobilinogen Ur Leukocyte Esterase Ur Random Creatinine U Random Total Protein Ur Random Sodium Ur Random Potassium Ur Random Chloride Urine Creatinine Protein/Creatinin Ratio Vancomycin Pre-Dose Influenza A (Rapid) Negative Influenza B (Rapid) Negative Active Medications Generic Name Dose Route Start Last Admin Trade Name Freq PRN Reason Stop Dose Admin Albuterol Sulfate 1 amp 06/19/18 20:45 Ventolin 0.083% Nebulizer Soln - NEB Q1H PRN SHORT OF BREATH/WHEEZING Albuterol/Ipratropium 1 amp 06/20/18 08:00 06/20/18 11:50 Duoneb - NEB 1 amp RQID [place] Administration Allopurinol 50 mg 06/20/18 10:00 06/20/18 09:49 Zyloprim - PO 50 mg DAILY [place] Administration Aspirin 81 mg 06/20/18 10:00 06/20/18 09:49 Ecotrin - PO 81 mg DAILY [place] Administration Atorvastatin Calcium 20 mg 06/20/18 22:00 Lipitor - PO HS [facility] Chlorhexidine Gluconate 1 applic 06/20/18 22:00 Hibiclens For Decolonization - TP HS [facility] Cholecalciferol 2,000 unit 06/20/18 10:00 06/20/18 09:49 Vitamin D3 - PO 2,000 unit DAILY [place] Administration Ezetimibe 10 mg 06/20/18 10:00 06/20/18 11:32 Zetia - PO 10 mg DAILY [place] Administration Furosemide 40 mg 06/20/18 06:00 06/20/18 13:05 Lasix Injection - IVPUSH 40 mg BID@0600,1400 [place] Administration Heparin Sodium (Porcine) 5,000 unit 06/20/18 06:00 06/20/18 13:05 Heparin - SQ 5,000 unit TID [place] Administration Azithromycin 500 mg in 250 mls @ 250 mls/hr 06/20/18 10:00 06/20/18 09:49 Zithromax 500mg Ivpb (Pre-Docked) IVPB 250 mls/hr DAILY [place] Administration Ceftriaxone Sodium 1 gm/ 50 mls @ 100 mls/hr 06/20/18 21:05 Dextrose IVPB 06/20/18 21:34 ONCE ONE Methylprednisolone Sodium Succinate 60 mg 06/19/18 21:00 06/20/18 13:05 Solu-Medrol - IVPUSH 60 mg Q8H [place] Administration Metoprolol Succinate 50 mg 06/19/18 22:00 06/20/18 00:33 Toprol Xl - PO 50 mg HS [place] Administration Mupirocin 1 applic 06/20/18 10:00 06/20/18 10:00 Bactroban Ointment (For Decolonization) - NS 06/25/18 09:59 1 applic BID [place] Administration Pantoprazole Sodium 40 mg 06/20/18 10:00 06/20/18 09:49 Protonix - PO 40 mg DAILY [place] Administration Home Medications Medication Instructions Recorded Albuterol Sulfate [Proair Hfa] 2 inh IH QID 02/21/18 Allopurinol [Zyloprim -] 50 mg PO DAILY 02/21/18 Cholecalciferol (Vitamin D3) 2,000 unit PO DAILY 02/21/18 [Vitamin D -] Dulaglutide [Trulicity] 1.5 mg SQ WEEKLY 02/21/18 Ezetimibe [Zetia -] 10 mg PO DAILY 02/21/18 Lactobacillus Acidophilus 1 each PO DAILY 02/21/18 [Acidophilus] Losartan Potassium [Cozaar -] 25 mg PO DAILY 02/21/18 Metoprolol Succinate 50 mg PO HS 02/21/18 Pantoprazole Sodium [Protonix] 40 mg PO DAILY 02/21/18 Pitavastatin Calcium [Livalo] 4 mg PO DAILY 02/21/18 Ubidecarenone [Co Q-10] 200 mg PO DAILY 02/21/18 Furosemide [Lasix] 80 mg PO DAILY 03/13/18 Insulin (Levemir) [Levemir Vial] 0 units SQ ASDIR 03/17/18 Cider Vinegar [Apple Cider Vinegar] 500 mg PO DAILY 06/19/18 Cyanocobalamin (Vitamin B-12) 200 mg PO DAILY 06/19/18 [Vitamin B-12] Insulin Sliding Scale [Novolog 0 units SQ ACHS 06/19/18 Vial Sliding Scale -] Nintedanib Esylate [Ofev] 150 mg PO DAILY 06/19/18 Prednisone 10 mg PO DAILY 06/19/18 Turmeric/Turmeric Root Extract 500 mg PO DAILY 06/19/18 [Turmeric 500 mg Capsule] CT Chest and CXR results and images reviewed Renal/Bladder US results reviewed EKG ST depressions/in V2-V6, Q in III, aVF ASSESSMENT/PLAN: 72 yom with PMhx of COPD, Steroid/oxygen (3L) dependent Pulmonary fibrosis/ILD , SHANTI on CPAP at night, Pulmonary HTN, CKD stage II, LV systolic dysfunction, prior admissions for CHF, CAD s/p OR, 2Stents , T2DM on Insulin, Hypercholesterolemia admitted with progressive exertional dyspnea and hypoxia. -Acute hypoxic respiratory failure -Suspected acute on chronic systolic heart failure exacerbation -Steroid oxygen dependent COPD/ILD +/- Flare -r/o PNA -New EKG changes with new LV WMA and worsening LV systolic function -IDDM -TAZ on CKD stage II, suspect from CHF/worsening LV function with poor perfusion -CAD s/p PCI -HLD Plan: Clinically Improved. 2D echo and EKG noted. Await cardiology input. Could be etiology for his progressive dyspnea. Lasix 40 mg IV BID with strict I/Os. Continue ASA/statin/metoprolol. Steroids, taper as improves. Nebs. Emperic ceftriaxone/azithromycin for now. Follow up cultures. Renal function improved. Close monitoring with IV diuresis. Follow up renal input. Renal/bladder US noted. Patient known from prior admission, on high doses of insulin at home. Will place on levemir 20 units BID and change ISS to start at 4 units for 50 above 150 DVTPPX heparin Dispo pending clinical improvement Plan discussed with patient in detail, all questions answered. Total critical care time spent 36 min. Visit type - Emergency Visit Emergency Visit: Yes ED Registration Date: 06/19/18 Care time: The patient presented to the Emergency Department on the above date and was hospitalized for further evaluation of their emergent condition. - New Patient This patient is new to me today: Yes Date on this admission: 06/20/18 - Critical Care Critical Care patient: Yes Total Critical Care Time (in minutes): 36 Critical Care Statement: The care of this patient involved high complexity decision making to prevent further life threatening deterioration of the patient 's condition and/or to evaluate & treat vital organ system(s) failure or risk of failure.
--- NOTE | 2018-06-20 14:52 | CONSULT ---
Consult Consult Specialty:: Nephrology Reason for Consultation:: TAZ - History of Present Illness Chief Complaint: shortness of breath History of Present Illness: Pt is a 72 year old male with pmhx of CKD, HTN, CHF, pulm fibrosis, COPD, CAD and DM who presents to the ER with increased shortness of breath. He says that it has been getting worse over the last few weeks. He denies chest pain or palpitations. He has CKD and follows with Dr Boswell. He was found to have elevated creatinine and I was called to evaluate him. He denies dysuria or hematuria. He denies nsaid use. He is on lasix and metolazone at home. He usually uses 2 liters of oxygen at home however was desaturating with 3 liters. He is not compliant with low salt diet. He usually has lower ext edema however he feels that his legs are markedly improved now. He still desaturates with minimal exertion. Spoke to his and grocery manager about history as well. - History Source History Provided By: Patient, Family Member, Medical Record - Past Medical History Cardio/Vascular: Yes: CAD, CHF, HTN, MT, Pulmonary Hypertension Pulmonary: Yes: COPD, O2 Dependent, Pulmonary Fibrosis, Sleep Apnea, Other (ILD) Renal/: Yes: Renal Inusuff, BPH, Hematuria Psych: Yes: Anxiety Endocrine: Yes: Diabetes Mellitus. No: Thierry's Disease - Past Surgical History Past Surgical History: Yes: Appendectomy, Cataract Removal (coronary artery stent by history. 2010 3 stents placed), Stent - Alcohol/Substance Use Hx Alcohol Use: No History of Substance Use: reports: None - Smoking History Smoking history: Unknown if ever smoked Have you smoked in the past 12 months: No Aproximately how many cigarettes per day: 0 If you are a former smoker, when did you quit?: 1989 - Social History ADL: Independent Occupation: retired secondary to disability History of Recent Travel: No Home Medications - Allergies Allergies/Adverse Reactions: Allergies Allergy/AdvReac Type Severity Reaction Status Date / Time No Known Drug Allergies Allergy Verified 02/21/18 12:21 - Home Medications Home Medications: Ambulatory Orders Albuterol Sulfate [Proair Hfa] 2 inh IH QID 02/21/18 Allopurinol [Zyloprim -] 50 mg PO DAILY 02/21/18 Cholecalciferol (Vitamin D3) [Vitamin D -] 2,000 unit PO DAILY 02/21/18 Dulaglutide [Trulicity] 1.5 mg SQ WEEKLY 02/21/18 Ezetimibe [Zetia -] 10 mg PO DAILY 02/21/18 Lactobacillus Acidophilus [Acidophilus] 1 each PO DAILY 02/21/18 Losartan Potassium [Cozaar -] 25 mg PO DAILY 02/21/18 Metoprolol Succinate 50 mg PO HS 02/21/18 Pantoprazole Sodium [Protonix] 40 mg PO DAILY 02/21/18 Pitavastatin Calcium [Livalo] 4 mg PO DAILY 02/21/18 Ubidecarenone [Co Q-10] 200 mg PO DAILY 02/21/18 Furosemide [Lasix] 80 mg PO DAILY 03/13/18 Insulin (Levemir) [Levemir Vial] 0 units SQ ASDIR 03/17/18 Cider Vinegar [Apple Cider Vinegar] 500 mg PO DAILY 06/19/18 Cyanocobalamin (Vitamin B-12) [Vitamin B-12] 200 mg PO DAILY 06/19/18 Insulin Sliding Scale [Novolog Vial Sliding Scale -] 0 units SQ ACHS 06/19/18 Nintedanib Esylate [Ofev] 150 mg PO DAILY 06/19/18 Prednisone 10 mg PO DAILY 06/19/18 Turmeric/Turmeric Root Extract [Turmeric 500 mg Capsule] 500 mg PO DAILY Family Disease History - Family Disease History Family Disease History: Diabetes: Father, Brother, Heart Disease: Father, Other : Mother (dementia) Review of Systems - Review of Systems Constitutional: reports: Malaise Eyes: reports: No Symptoms HENT: reports: No Symptoms Neck: reports: No Symptoms Cardiovascular: reports: Edema, Shortness of Breath Respiratory: reports: SOB, SOB on Exertion Gastrointestinal: reports: No Symptoms Genitourinary: reports: No Symptoms Musculoskeletal: reports: No Symptoms Integumentary: reports: No Symptoms Neurological: reports: No Symptoms Endocrine: reports: No Symptoms Hematology/Lymphatic: reports: No Symptoms Psychiatric: reports: No Symptoms Physical Exam Vital Signs: Vital Signs Temperature 98.2 F 06/20/18 10:00 Pulse Rate 88 06/20/18 12:00 Respiratory Rate 18 06/20/18 12:00 Blood Pressure 116/68 06/20/18 12:00 O2 Sat by Pulse Oximetry (%) 99 06/20/18 08:08 Constitutional: Yes: Calm Eyes: Yes: Conjunctiva Clear HENT: Yes: Atraumatic Cardiovascular: Yes: S1, S2 Respiratory: Yes: Diminished, On Nasal O2 Gastrointestinal: Yes: Soft Renal/: Yes: WNL Musculoskeletal: Yes: WNL Edema: LLE: Trace, RLE: Trace Integumentary: Yes: WNL Neurological: Yes: Oriented Psychiatric: Yes: Oriented Labs: CBC, BMP 06/20/18 05:30 06/20/18 05:30 Laboratory Tests 02/22/18 03/15/18 03/16/18 07:00 06:00 05:25 WBC Creatinine 1.4 H 1.5 H 1.4 H 03/17/18 06/19/18 06/19/18 06:30 18:09 18:43 WBC 15.9 H Creatinine 1.3 3.0 H 06/20/18 06/20/18 05:30 05:30 WBC 12.7 H Creatinine 2.6 H Imaging - Results Chest X-ray: Report Reviewed Cat Scan: Report Reviewed Assessment/Plan Current Medications Generic Name Dose Route Start Last Admin Trade Name Freq PRN Reason Stop Dose Admin Albuterol Sulfate 1 amp 06/19/18 20:45 Ventolin 0.083% Nebulizer Soln - NEB Q1H PRN SHORT OF BREATH/WHEEZING Albuterol/Ipratropium 1 amp 06/20/18 08:00 06/20/18 11:50 Duoneb - NEB 1 amp RQID [facility] Administration Allopurinol 50 mg 06/20/18 10:00 06/20/18 09:49 Zyloprim - PO 50 mg DAILY [facility] Administration Aspirin 81 mg 06/20/18 10:00 06/20/18 09:49 Ecotrin - PO 81 mg DAILY [facility] Administration Atorvastatin Calcium 20 mg 06/20/18 22:00 Lipitor - PO [facility] Chlorhexidine Gluconate 1 applic 06/20/18 22:00 Hibiclens For Decolonization - TP [facility] Cholecalciferol 2,000 unit 06/20/18 10:00 06/20/18 09:49 Vitamin D3 - PO 2,000 unit DAILY [facility] Administration Ezetimibe 10 mg 06/20/18 10:00 06/20/18 11:32 Zetia - PO 10 mg DAILY [facility] Administration Furosemide 40 mg 06/20/18 06:00 06/20/18 13:05 Lasix Injection - IVPUSH 40 mg BID@0600,1400 [facility] Administration Heparin Sodium (Porcine) 5,000 unit 06/20/18 06:00 06/20/18 13:05 Heparin - SQ 5,000 unit TID [facility] Administration Azithromycin 500 mg in 250 mls @ 250 mls/hr 06/20/18 10:00 06/20/18 09:49 Zithromax 500mg Ivpb (Pre-Docked) IVPB 250 mls/hr DAILY [facility] Administration Ceftriaxone Sodium 1 gm/ 50 mls @ 100 mls/hr 06/20/18 21:05 Dextrose IVPB 06/20/18 21:34 ONCE ONE Insulin Aspart 1 vial 06/20/18 14:39 Novolog Vial Sliding Scale - SQ ACHS [facility] Protocol Insulin Detemir 20 units 06/20/18 22:00 Levemir Vial SQ BID@0700,2200 [facility] Methylprednisolone Sodium Succinate 60 mg 06/19/18 21:00 06/20/18 13:05 Solu-Medrol - IVPUSH 60 mg Q8H [facility] Administration Metoprolol Succinate 50 mg 06/19/18 22:00 06/20/18 00:33 Toprol Xl - PO 50 mg HS [facility] Administration Mupirocin 1 applic 06/20/18 10:00 06/20/18 10:00 Bactroban Ointment (For Decolonization) - NS 06/25/18 09:59 1 applic BID [facility] Administration Pantoprazole Sodium 40 mg 06/20/18 10:00 06/20/18 09:49 Protonix - PO 40 mg DAILY [facility] Administration Impression 1. TAZ 2. CKD 3. Pulmonary fibrosis on Home oxygen 4. SHANTI on CPAP at night 5. Pulmonary HTN 6. CAD s/p MT, 2Stents 7. DM 8. Chol 9. copd 10. CHF Plan - renal function is improved today - monitor bmp daily - he does have elevated pvr, monitor daily - agree with decreasing lasix dose - hold metolazone for now - cont steroids with taper as tolerated - hold arb in the setting of TAZ - check ua - will follow - discussed with ICU - discussed with cardiology and reviewed outpt note Dr Pool
--- NOTE | 2018-06-20 15:36 | PN ---
Physical Exam: SUBJECTIVE: Patient seen and examined HD# 2 ICU Day 2 Overnight Events: Pt admitted to the unit last evening. No acute events reported after arrival. Pt reports improved SOB this AM. Endorses occasional migratory anterior chest wall pain that lasts <5 seconds. Denies exertional component. Reports he was started on prednisone taper approx. 5 weeks ago by nurse researcher , Dr. Varela @ [facility]. Has been experiencing progressive SOB over the past several weeks to months. OBJECTIVE: Vital Signs Period Temp Pulse Resp BP Sys/Meraz Pulse Ox Last 24 Hr 98.2 F-98.7 F 74-104 18- 90-184/16-109 79-100 Intake & Output 06/20/18 06/20/18 06/20/18 06:59 14:59 22:59 Intake Total 20 Output Total 770 800 Balance -750 -800 Weight 83.143 kg Intake: Oral 20 Output: Urine 770 800 Void 770 800 Other: Voiding Method Urinal Urinal Bowel Movement No Height 1.7 m Body Mass Index (BMI) 30.5 Weight Measurement Method Built in [facility] Lines: - PIV Drains: - None. Pugh was not inserted as ordered. Supplemental Oxygen: High flow nasal cannula. FiO2 @50%. I/Os not strictly monitored. Physical Exams: GENERAL: The patient is awake, alert, and fully oriented, in no acute distress. HEAD: Normal with no signs of trauma. LUNGS: High flow nasal cannula in place. Pauses after every 5th or 6th word to catch breath. Breath sounds present bilaterally. Diffuse coarse breath sounds without wheezing or stridor. HEART: Regular rate and rhythm, S1, S2 without murmur, rub or gallop. ABDOMEN: Soft, nontender, and nondistended. EXTREMITIES: 2+ pulses, warm, well-perfused, 1+ pretibial edema bilaterally. PSYCH: Normal mood, normal affect. SKIN: Warm and dry. Drips: - None Anti Infectives: - Vancomycin, one time dose on 06/19 - Zosyn, one time dose on 06/19 - Ceftriaxone, one time dose on 06/20 - Azithromycin (started 06/20) Laboratory Results - last 24 hr 06/19/18 06/19/18 06/19/18 06:00 18:09 18:35 WBC RBC Hgb Hct MCV MCH MCHC RDW Plt Count MPV Absolute Neuts (auto) Neutrophils % Neutrophils % (Manual) Band Neutrophils % Lymphocytes % Lymphocytes % (Manual) Monocytes % Monocytes % (Manual) Eosinophils % Eosinophils % (Manual) Basophils % Basophils % (Manual) Myelocytes % (Man) Promyelocytes % (Man) Blast Cells % (Manual) Nucleated RBC % Metamyelocytes Hypochromia Platelet Estimate Polychromasia Poikilocytosis Anisocytosis Microcytosis Macrocytosis PT with INR INR PTT (Actin FS) Anticoagulation Therapy Puncture Site ABG pH ABG pCO2 at Pt Temp ABG pO2 at Pt Temp ABG HCO3 ABG O2 Sat (Measured) ABG O2 Content ABG Base Excess Maikel Test Carboxyhemoglobin Methemoglobin O2 Delivery Device Oxygen Flow Rate Vent Mode Vent Rate Mechanical Rate Pressure Support Vent Sodium 136 Potassium 4.8 Chloride 101 Carbon Dioxide 18 L Anion Gap 16 BUN 100 H Creatinine 3.0 H Creat Clearance w eGFR 20.79 POC Glucometer Random Glucose 160 H Hemoglobin A1c % Lactic Acid 4.6 H* Calcium 6.2 L* Phosphorus Magnesium 2.3 Total Bilirubin 0.8 AST 44 H ALT 38 Alkaline Phosphatase 71 Creatine Kinase 75 Troponin I < 0.02 B-Natriuretic Peptide Total Protein 7.6 Albumin 1.9 L Triglycerides 567 H Cholesterol 158 Total LDL Cholesterol 84 HDL Cholesterol 41 TSH Urine Color Yellow Urine Appearance Clear Urine pH 5.0 Ur Specific [place] 1.012 Urine Protein Trace Urine Glucose (UA) Negative Urine Ketones Negative Urine Blood Negative Urine Nitrite Negative Urine Bilirubin Negative Urine Urobilinogen 0.2 Ur Leukocyte Esterase Negative Ur Random Creatinine U Random Total Protein Ur Random Sodium Ur Random Potassium Ur Random Chloride Urine Creatinine Protein/Creatinin Ratio Vancomycin Pre-Dose Influenza A (Rapid) Influenza B (Rapid) 06/19/18 06/19/18 06/19/18 18:43 18:43 18:43 WBC 15.9 H RBC 5.16 Hgb 15.3 Hct 46.7 D MCV 90.5 MCH 29.6 MCHC 32.7 RDW 16.1 H Plt Count 218 D MPV 8.7 Absolute Neuts (auto) 12.6 H Neutrophils % 79.5 Neutrophils % (Manual) Band Neutrophils % Lymphocytes % 13.9 D Lymphocytes % (Manual) Monocytes % 5.5 Monocytes % (Manual) Eosinophils % 0.5 D Eosinophils % (Manual) Basophils % 0.6 Basophils % (Manual) Myelocytes % (Man) Promyelocytes % (Man) Blast Cells % (Manual) Nucleated RBC % 0 Metamyelocytes Hypochromia Platelet Estimate Polychromasia Poikilocytosis Anisocytosis Microcytosis Macrocytosis PT with INR 12.00 INR 1.02 PTT (Actin FS) 32.1 Anticoagulation Therapy Puncture Site ABG pH ABG pCO2 at Pt Temp ABG pO2 at Pt Temp ABG HCO3 ABG O2 Sat (Measured) ABG O2 Content ABG Base Excess Maikel Test Carboxyhemoglobin Methemoglobin O2 Delivery Device Oxygen Flow Rate Vent Mode Vent Rate Mechanical Rate Pressure Support Vent Sodium Potassium Chloride Carbon Dioxide Anion Gap BUN Creatinine Creat Clearance w eGFR POC Glucometer Random Glucose Hemoglobin A1c % Lactic Acid Calcium Phosphorus Magnesium Total Bilirubin AST ALT Alkaline Phosphatase Creatine Kinase Troponin I B-Natriuretic Peptide 3540.0 H Total Protein Albumin Triglycerides Cholesterol Total LDL Cholesterol HDL Cholesterol TSH Urine Color Urine Appearance Urine pH Ur Specific [place] Urine Protein Urine Glucose (UA) Urine Ketones Urine Blood Urine Nitrite Urine Bilirubin Urine Urobilinogen Ur Leukocyte Esterase Ur Random Creatinine U Random Total Protein Ur Random Sodium Ur Random Potassium Ur Random Chloride Urine Creatinine Protein/Creatinin Ratio Vancomycin Pre-Dose Influenza A (Rapid) Influenza B (Rapid) 06/19/18 06/19/18 06/19/18 18:43 18:43 20:10 WBC RBC Hgb Hct MCV MCH MCHC RDW Plt Count MPV Absolute Neuts (auto) Neutrophils % Neutrophils % (Manual) Band Neutrophils % Lymphocytes % Lymphocytes % (Manual) Monocytes % Monocytes % (Manual) Eosinophils % Eosinophils % (Manual) Basophils % Basophils % (Manual) Myelocytes % (Man) Promyelocytes % (Man) Blast Cells % (Manual) Nucleated RBC % Metamyelocytes Hypochromia Platelet Estimate Polychromasia Poikilocytosis Anisocytosis Microcytosis Macrocytosis PT with INR INR PTT (Actin FS) Anticoagulation Therapy No Result Required. No Result Required. Puncture Site No Result Required. Left radial ABG pH 7.44 7.44 ABG pCO2 at Pt Temp 28.4 L 31.7 L ABG pO2 at Pt Temp 58.6 L 99.3 ABG HCO3 19.2 L 21.3 L ABG O2 Sat (Measured) 89.6 L 97.8 ABG O2 Content 18.6 19.1 ABG Base Excess -3.1 L -1.4 Maikel Test No Result Required. Positive Carboxyhemoglobin 1.7 1.7 Methemoglobin 0.3 0.3 O2 Delivery Device No Result Required. High flow Oxygen Flow Rate No Result Required. 53% Vent Mode No Result Required. No Result Required. Vent Rate No Result Required. No Result Required. Mechanical Rate No Result Required. No Result Required. Pressure Support Vent No Result Required. No Result Required. Sodium Potassium Chloride Carbon Dioxide Anion Gap BUN Creatinine Creat Clearance w eGFR POC Glucometer Random Glucose Hemoglobin A1c % 7.9 H Lactic Acid Calcium Phosphorus Magnesium Total Bilirubin AST ALT Alkaline Phosphatase Creatine Kinase Troponin I B-Natriuretic Peptide Total Protein Albumin Triglycerides Cholesterol Total LDL Cholesterol HDL Cholesterol TSH Urine Color Urine Appearance Urine pH Ur Specific [place] Urine Protein Urine Glucose (UA) Urine Ketones Urine Blood Urine Nitrite Urine Bilirubin Urine Urobilinogen Ur Leukocyte Esterase Ur Random Creatinine U Random Total Protein Ur Random Sodium Ur Random Potassium Ur Random Chloride Urine Creatinine Protein/Creatinin Ratio Vancomycin Pre-Dose Influenza A (Rapid) Influenza B (Rapid) 06/19/18 06/19/18 06/19/18 21:30 22:47 22:52 WBC RBC Hgb Hct MCV MCH MCHC RDW Plt Count MPV Absolute Neuts (auto) Neutrophils % Neutrophils % (Manual) Band Neutrophils % Lymphocytes % Lymphocytes % (Manual) Monocytes % Monocytes % (Manual) Eosinophils % Eosinophils % (Manual) Basophils % Basophils % (Manual) Myelocytes % (Man) Promyelocytes % (Man) Blast Cells % (Manual) Nucleated RBC % Metamyelocytes Hypochromia Platelet Estimate Polychromasia Poikilocytosis Anisocytosis Microcytosis Macrocytosis PT with INR INR PTT (Actin FS) Anticoagulation Therapy Puncture Site ABG pH ABG pCO2 at Pt Temp ABG pO2 at Pt Temp ABG HCO3 ABG O2 Sat (Measured) ABG O2 Content ABG Base Excess Maikel Test Carboxyhemoglobin Methemoglobin O2 Delivery Device Oxygen Flow Rate Vent Mode Vent Rate Mechanical Rate Pressure Support Vent Sodium Potassium Chloride Carbon Dioxide Anion Gap BUN Creatinine Creat Clearance w eGFR POC Glucometer Random Glucose Hemoglobin A1c % Lactic Acid 1.7 Calcium Phosphorus Magnesium Total Bilirubin AST ALT Alkaline Phosphatase Creatine Kinase Troponin I B-Natriuretic Peptide Total Protein Albumin Triglycerides Cholesterol Total LDL Cholesterol HDL Cholesterol TSH Urine Color Yellow Urine Appearance Clear Urine pH 5.0 Ur Specific [place] 1.014 Urine Protein Trace Urine Glucose (UA) Negative Urine Ketones Negative Urine Blood Negative Urine Nitrite Negative Urine Bilirubin Negative Urine Urobilinogen 0.2 Ur Leukocyte Esterase Negative Ur Random Creatinine 107 U Random Total Protein 27.6 H Ur Random Sodium 44 Ur Random Potassium 55.0 Ur Random Chloride 74 L Urine Creatinine 107.0 Protein/Creatinin Ratio 0.250 Vancomycin Pre-Dose Influenza A (Rapid) Influenza B (Rapid) 06/20/18 06/20/18 06/20/18 00:27 05:30 05:30 WBC 12.7 H RBC 4.93 Hgb 14.1 Hct 43.6 MCV 88.4 MCH 28.7 MCHC 32.5 RDW 16.0 H Plt Count 190 MPV 8.5 Absolute Neuts (auto) 11.6 H Neutrophils % 91.5 H Neutrophils % (Manual) 93.1 H Band Neutrophils % 0.0 Lymphocytes % 7.4 L D Lymphocytes % (Manual) 5.9 L D Monocytes % 1.0 L D Monocytes % (Manual) 1 L D Eosinophils % 0.0 D Eosinophils % (Manual) 0.0 Basophils % 0.1 Basophils % (Manual) 0.0 Myelocytes % (Man) 0 Promyelocytes % (Man) 0 Blast Cells % (Manual) 0 Nucleated RBC % 0 Metamyelocytes 0 Hypochromia 0 Platelet Estimate Normal Polychromasia 0 Poikilocytosis 0 Anisocytosis 0 Microcytosis 0 Macrocytosis 0 PT with INR INR PTT (Actin FS) Anticoagulation Therapy Puncture Site ABG pH ABG pCO2 at Pt Temp ABG pO2 at Pt Temp ABG HCO3 ABG O2 Sat (Measured) ABG O2 Content ABG Base Excess Maikel Test Carboxyhemoglobin Methemoglobin O2 Delivery Device Oxygen Flow Rate Vent Mode Vent Rate Mechanical Rate Pressure Support Vent Sodium Potassium Chloride Carbon Dioxide Anion Gap BUN Creatinine Creat Clearance w eGFR POC Glucometer 253 Random Glucose Hemoglobin A1c % Lactic Acid Calcium Phosphorus Magnesium Total Bilirubin AST ALT Alkaline Phosphatase Creatine Kinase Troponin I B-Natriuretic Peptide Total Protein Albumin Triglycerides Cholesterol Total LDL Cholesterol HDL Cholesterol TSH Urine Color Urine Appearance Urine pH Ur Specific [place] Urine Protein Urine Glucose (UA) Urine Ketones Urine Blood Urine Nitrite Urine Bilirubin Urine Urobilinogen Ur Leukocyte Esterase Ur Random Creatinine U Random Total Protein Ur Random Sodium Ur Random Potassium Ur Random Chloride Urine Creatinine Protein/Creatinin Ratio Vancomycin Pre-Dose 23.8 Influenza A (Rapid) Influenza B (Rapid) 06/20/18 06/20/18 06/20/18 05:30 05:30 05:30 WBC RBC Hgb Hct MCV MCH MCHC RDW Plt Count MPV Absolute Neuts (auto) Neutrophils % Neutrophils % (Manual) Band Neutrophils % Lymphocytes % Lymphocytes % (Manual) Monocytes % Monocytes % (Manual) Eosinophils % Eosinophils % (Manual) Basophils % Basophils % (Manual) Myelocytes % (Man) Promyelocytes % (Man) Blast Cells % (Manual) Nucleated RBC % Metamyelocytes Hypochromia Platelet Estimate Polychromasia Poikilocytosis Anisocytosis Microcytosis Macrocytosis PT with INR 12.50 INR 1.06 PTT (Actin FS) Anticoagulation Therapy Puncture Site ABG pH ABG pCO2 at Pt Temp ABG pO2 at Pt Temp ABG HCO3 ABG O2 Sat (Measured) ABG O2 Content ABG Base Excess Maikel Test Carboxyhemoglobin Methemoglobin O2 Delivery Device Oxygen Flow Rate Vent Mode Vent Rate Mechanical Rate Pressure Support Vent Sodium 134 L Potassium 4.6 Chloride 98 Carbon Dioxide 23 Anion Gap 13 BUN 101 H Creatinine 2.6 H Creat Clearance w eGFR 24.53 POC Glucometer Random Glucose 266 H Hemoglobin A1c % Lactic Acid Calcium 8.8 Phosphorus 6.2 H Magnesium 2.3 Total Bilirubin 0.6 AST 22 ALT 28 Alkaline Phosphatase 61 Creatine Kinase Troponin I 0.02 B-Natriuretic Peptide Total Protein 6.7 Albumin 3.3 L Triglycerides Cholesterol Total LDL Cholesterol HDL Cholesterol TSH 0.30 L Urine Color Urine Appearance Urine pH Ur Specific [place] Urine Protein Urine Glucose (UA) Urine Ketones Urine Blood Urine Nitrite Urine Bilirubin Urine Urobilinogen Ur Leukocyte Esterase Ur Random Creatinine U Random Total Protein Ur Random Sodium Ur Random Potassium Ur Random Chloride Urine Creatinine Protein/Creatinin Ratio Vancomycin Pre-Dose Influenza A (Rapid) Influenza B (Rapid) 06/20/18 06/20/18 06/20/18 06:37 07:41 11:05 WBC RBC Hgb Hct MCV MCH MCHC RDW Plt Count MPV Absolute Neuts (auto) Neutrophils % Neutrophils % (Manual) Band Neutrophils % Lymphocytes % Lymphocytes % (Manual) Monocytes % Monocytes % (Manual) Eosinophils % Eosinophils % (Manual) Basophils % Basophils % (Manual) Myelocytes % (Man) Promyelocytes % (Man) Blast Cells % (Manual) Nucleated RBC % Metamyelocytes Hypochromia Platelet Estimate Polychromasia Poikilocytosis Anisocytosis Microcytosis Macrocytosis PT with INR INR PTT (Actin FS) Anticoagulation Therapy Puncture Site ABG pH ABG pCO2 at Pt Temp ABG pO2 at Pt Temp ABG HCO3 ABG O2 Sat (Measured) ABG O2 Content ABG Base Excess Maikel Test Carboxyhemoglobin Methemoglobin O2 Delivery Device Oxygen Flow Rate Vent Mode Vent Rate Mechanical Rate Pressure Support Vent Sodium Potassium Chloride Carbon Dioxide Anion Gap BUN Creatinine Creat Clearance w eGFR POC Glucometer 271 442 Random Glucose Hemoglobin A1c % Lactic Acid 1.2 Calcium Phosphorus Magnesium Total Bilirubin AST ALT Alkaline Phosphatase Creatine Kinase Troponin I B-Natriuretic Peptide Total Protein Albumin Triglycerides Cholesterol Total LDL Cholesterol HDL Cholesterol TSH Urine Color Urine Appearance Urine pH Ur Specific [place] Urine Protein Urine Glucose (UA) Urine Ketones Urine Blood Urine Nitrite Urine Bilirubin Urine Urobilinogen Ur Leukocyte Esterase Ur Random Creatinine U Random Total Protein Ur Random Sodium Ur Random Potassium Ur Random Chloride Urine Creatinine Protein/Creatinin Ratio Vancomycin Pre-Dose Influenza A (Rapid) Influenza B (Rapid) 06/20/18 13:00 WBC RBC Hgb Hct MCV MCH MCHC RDW Plt Count MPV Absolute Neuts (auto) Neutrophils % Neutrophils % (Manual) Band Neutrophils % Lymphocytes % Lymphocytes % (Manual) Monocytes % Monocytes % (Manual) Eosinophils % Eosinophils % (Manual) Basophils % Basophils % (Manual) Myelocytes % (Man) Promyelocytes % (Man) Blast Cells % (Manual) Nucleated RBC % Metamyelocytes Hypochromia Platelet Estimate Polychromasia Poikilocytosis Anisocytosis Microcytosis Macrocytosis PT with INR INR PTT (Actin FS) Anticoagulation Therapy Puncture Site ABG pH ABG pCO2 at Pt Temp ABG pO2 at Pt Temp ABG HCO3 ABG O2 Sat (Measured) ABG O2 Content ABG Base Excess Maikel Test Carboxyhemoglobin Methemoglobin O2 Delivery Device Oxygen Flow Rate Vent Mode Vent Rate Mechanical Rate Pressure Support Vent Sodium Potassium Chloride Carbon Dioxide Anion Gap BUN Creatinine Creat Clearance w eGFR POC Glucometer Random Glucose Hemoglobin A1c % Lactic Acid Calcium Phosphorus Magnesium Total Bilirubin AST ALT Alkaline Phosphatase Creatine Kinase Troponin I B-Natriuretic Peptide Total Protein Albumin Triglycerides Cholesterol Total LDL Cholesterol HDL Cholesterol TSH Urine Color Urine Appearance Urine pH Ur Specific [place] Urine Protein Urine Glucose (UA) Urine Ketones Urine Blood Urine Nitrite Urine Bilirubin Urine Urobilinogen Ur Leukocyte Esterase Ur Random Creatinine U Random Total Protein Ur Random Sodium Ur Random Potassium Ur Random Chloride Urine Creatinine Protein/Creatinin Ratio Vancomycin Pre-Dose Influenza A (Rapid) Negative Influenza B (Rapid) Negative Active Medications Generic Name Dose Route Start Last Admin Trade Name Freq PRN Reason Stop Dose Admin Albuterol Sulfate 1 amp 06/19/18 20:45 Ventolin 0.083% Nebulizer Soln - NEB Q1H PRN SHORT OF BREATH/WHEEZING Albuterol/Ipratropium 1 amp 06/20/18 08:00 06/20/18 11:50 Duoneb - NEB 1 amp RQID [facility] Administration Allopurinol 50 mg 06/20/18 10:00 06/20/18 09:49 Zyloprim - PO 50 mg DAILY [facility] Administration Aspirin 81 mg 06/20/18 10:00 06/20/18 09:49 Ecotrin - PO 81 mg DAILY [facility] Administration Atorvastatin Calcium 20 mg 06/20/18 22:00 Lipitor - PO HS [facility] Chlorhexidine Gluconate 1 applic 06/20/18 22:00 Hibiclens For Decolonization - TP HS [facility] Cholecalciferol 2,000 unit 06/20/18 10:00 06/20/18 09:49 Vitamin D3 - PO 2,000 unit DAILY [facility] Administration Ezetimibe 10 mg 06/20/18 10:00 06/20/18 11:32 Zetia - PO 10 mg DAILY [facility] Administration Furosemide 40 mg 06/20/18 06:00 06/20/18 13:05 Lasix Injection - IVPUSH 40 mg BID@0600,1400 [facility] Administration Heparin Sodium (Porcine) 5,000 unit 06/20/18 06:00 06/20/18 13:05 Heparin - SQ 5,000 unit TID [facility] Administration Azithromycin 500 mg in 250 mls @ 250 mls/hr 06/20/18 10:00 06/20/18 09:49 Zithromax 500mg Ivpb (Pre-Docked) IVPB 250 mls/hr DAILY [facility] Administration Ceftriaxone Sodium 1 gm/ 50 mls @ 100 mls/hr 06/20/18 21:05 Dextrose IVPB 06/20/18 21:34 ONCE ONE Insulin Aspart 1 vial 06/20/18 14:39 Novolog Vial Sliding Scale - SQ ACHS [facility] Protocol Insulin Detemir 20 units 06/20/18 22:00 Levemir Vial SQ BID@0700,2200 [facility] Methylprednisolone Sodium Succinate 60 mg 06/19/18 21:00 06/20/18 13:05 Solu-Medrol - IVPUSH 60 mg Q8H [facility] Administration Metoprolol Succinate 50 mg 06/19/18 22:00 06/20/18 00:33 Toprol Xl - PO 50 mg HS [facility] Administration Mupirocin 1 applic 06/20/18 10:00 06/20/18 10:00 Bactroban Ointment (For Decolonization) - NS 06/25/18 09:59 1 applic BID [facility] Administration Pantoprazole Sodium 40 mg 06/20/18 10:00 06/20/18 09:49 Protonix - PO 40 mg DAILY [facility] Administration ASSESSMENT/PLAN: 72 year old male with a history of CAD (s/p stent x3), HTN, HLD, CKD, Gout, DM ( insulin dependent), systolic CHF, ILD on home Oxygen and chronic steroids. Presented with shortness of breath, acute hypoxia, and increased supplemental oxygen requirements. Admitted to ICU for high flow oxygen and respiratory monitoring given comorbidities. Neuro (& Psych): - A/Ox4. No sedating gtts. - h/o of anxiety. Endocrine: - Consult Dr. Pool - DM. Placed on insulin sliding scale. - Gout. Continue home Allopurinol. - CKD. Cr above recent baseline documented in [employer] Cardiovascular: - Consult Dr. Calle - CAD s/p stent x3. Continue ASA. - HTN. Continue Metoprolol - HLD. Continue Zetia and Atorvastatin. - Flipped T waves in lateral EKG leads. New this visit. No elevated troponin at zero and 11 hours. Low suspicion for acute NH. Pulm / Resp: - Acute SOB and hypoxia. CT scan revealed no significant changes when compared to previous from earlier in the year. Small effusion noted. Low suspicion for pneumonia. More likely progression of ILD disease versus COPD exacerbation as pt s steroids are tapering, he endorses more stagnant lifestyle, was diagnosed with influenza in February 2018, and poor compliance with home oxygen therapy. - ILD and COPD on home oxygen and chronic steroids. Will treat with IV Methylprednisolone. Albuterol and Duonebs for bronchodilation. Furosemide for diuresis. Genitourinary: - Pugh placed for strict I/Os. Infectious Disease: - Received single dose of Vancomycin, Zosyn, and Ceftrixone. Continuing to receive Azithromycin for possible acute COPD exacerbation. - Lactic acidosis trended downward. Suspect secondary to respiratory distress rather than sepsis. Pt remained afebrile and normotensive overnight. FEN: - Low sodium, diabetic diet Prophylaxis: - DVT: Heparin - GI: Protonix Dispo: Pt to remain in ICU while attempting to wean from high flow nasal cannula. Contacted pts nurse researcher and requested recent records. Darren Head MD, PGY1 ICU Consult Service Visit type - Emergency Visit Emergency Visit: No - New Patient This patient is new to me today: Yes Date on this admission: 06/20/18 - Critical Care Critical Care patient: Yes Total Critical Care Time (in minutes): 48 Critical Care Statement: The care of this patient involved high complexity decision making to prevent further life threatening deterioration of the patient 's condition and/or to evaluate & treat vital organ system(s) failure or risk of failure.
--- NOTE | 2018-06-20 18:32 | CONS ---
DATE OF CONSULTATION: 06/19/2018 LOCATION: [facility] REASON FOR CONSULTATION: Cardiology consultation REQUESTING PHYSICIAN: Consultation requested by log grader HISTORY OF PRESENT ILLNESS: The patient is a 72-year-old gentleman with longstanding history of interstitial lung disease, oxygen dependent, coronary artery disease, status post PCI/stenting of the mid right ICA with a followup PCI and stenting for in-stent stenosis, angina pectoris status post left ventricular failure, history of mild to moderate left ventricular systolic dysfunction, insulin dependent diabetes mellitus, with multisystem involvement, dyslipidemia type 2B, chronic kidney disease, history of gout and history of influenza back in February of this year. Patient for the past 1 week was complaining of increasing dyspnea with minimal exertion, was unable to have more than 7 steps at a time, and had to sit down at least 10 minutes before he could catch his breath. This was accompanied by intermittent dry and hacking cough. There was no history of chest pain or discomfort either at rest or with exertion. No history of paroxysmal nocturnal dyspnea or orthopnea. He denies having palpitations, lightheadedness, dizziness, presyncope, or syncope. Patient states that he recently had increasing pedal edema and the dose of Lasix was increased from 80 to 100 mg p.o. daily. Patient also had pain on Zaroxolyn 2.5 mg p.o. twice a week. In view of his worsening symptoms, he was advised hospitalization and was found to be severely hypoxic and had lactic acidosis on arrival in the emergency room. He was also found to be in congestive heart failure and was treated with intravenous Lasix and placed on high-flow oxygen therapy. PAST HISTORY: As mentioned in the history of present illness. SURGICAL HISTORY: Status post appendectomy. History of a herniorrhaphy according to his . SOCIAL HISTORY: . He is retired and disabled. Has 2 sons and a daughter who are healthy. He smoked from the age of 32 to the age of 43 and used to smoke up to 2 packs of cigarettes per day. He would have a rare drink. No history of excessive use of caffeine or drugs. FAMILY HISTORY: Father at the age of 83 years of a myocardial infarction. He was diabetic, hypertensive, and a heavy smoker. Mother at the age of 83 related to complications of dementia and apparently was hypertensive. He had 2 brothers and 2 sisters. The older brother apparently has borderline diabetes mellitus. The other siblings are apparently healthy. ALLERGIES: None reported. CURRENT MEDICATIONS: 1. Methylprednisolone 60 mg IV q.8 h. 2. Zithromax 500 mg IV piggyback daily. 3. Ceftriaxone 1 g IV piggyback daily. 4. Bactroban ointment 1 application b.i.d. 5. Heparin 5000 units subcutaneous t.i.d. 6. Allopurinol 50 mg p.o. daily. 7. Albuterol 0.03% via nebulizer 1 ampule q.1 h. p.r.n. 8 . Albuterol/ipratropium 1 ampule via nebulizer q.i.d. 9. Metoprolol succinate 50 mg p.o. daily. 10. Zetia 10 mg p.o. daily. 11. Atorvastatin 20 mg p.o. daily at bedtime. 12. NovoLog insulin via sliding scale. 13. Chlorhexidine gluconate 1 application at bedtime for decolonization. 14. Furosemide 40 mg IV b.i.d. 15. Aspirin 81 mg p.o. daily. 16. Pantoprazole 40 mg p.o. daily. 17. Vitamin D3 2000 international units p.o. daily. Prior to admission, patient was also on Trulicity 1.5 mg subcutaneously once a week, aspirin 81 mg p.o. daily, and Zaroxolyn 2.5 mg p.o. b.i.d. He is also receiving losartan 25 mg p.o. daily, Nitrostat 0.4 mg p.o. daily. ALLERGIES: None reported. REVIEW OF SYSTEMS: Constitutional: No history of chills, fever, or night sweats. No history of unintentional weight loss. HEENT: No history of headaches, diplopia, blurred vision. No history of epistaxis, hoarseness, history of intermittent tinnitus. No history of deafness. Cardiovascular: See history of present illness. Rare episodes of left parasternal nonexertional chest discomfort lasting seconds. Respiratory: See history of present illness. Gastrointestinal: No history of nausea, vomiting, melena, or hematemesis. History of early satiety, no history of abdominal pain or discomfort. No history of change in bowel habits. Neurological: No history of lightheadedness, dizziness, presyncope or syncope. He did have recent fall causing hematoma which got infected involving the left elbow. Genitourinary: No history of dysuria, frequency, hematuria. No history of nocturia or urgency. Musculoskeletal: Complaining of generalized myalgias for the past 2-3 weeks. Endocrine: See history of present illness. Hematological/Lymphatics: History of intermittent ecchymosis. No history of anemia or bleeding. There is no known history of lymphadenopathy. PHYSICAL EXAMINATION: General: A 72-year-old gentleman at the time of examination with no acute distress, was resting comfortably, there was no pallor, no cyanosis of the nail beds or lips. There was no clubbing or jaundice. Vital signs: Blood pressure 116/68 mmHg, pulse 88 beats per minute and regular. Oxygen saturation on nasal cannula 99%. Respirations were 18 per minute. Weight was 83.143 kg. Neck: Supple. No jugulovenous distention, no pulsatile neck veins were seen. Hepatojugular reflex was mildly positive. Carotids were 2+, upstrokes were normal, no bruits were heard, and no thyromegaly was present. Heart: PMI was not localized, no heaves or thrills, heart sounds were distant. No murmur or gallops were appreciated. Lungs: Fine crepitations at the right base. No other extraneous sounds were heard. Abdomen: Obese, nontender. No hepatosplenomegaly or palpable masses were felt. Bowel sounds are present, no bruits were heard. Extremities: No calf tenderness or dependent edema, pulses were equal except posterior tibial pulses were not palpable. There were scattered ecchymotic areas involving both upper extremities. LABORATORY DATA: On June 19, 2018, WBC count was 15,900. Hemoglobin was 15.3 g. Platelet count was 218,000. Absolute neutrophils were elevated at 12.6, neutrophil percentage was 79.5%. Repeat CBC June 20, 2018, WBC count was 12,700, hemoglobin 14.1 g. Platelet count was 190,000. Absolute neutrophils were 11.6, and percentage was 91.5%. Lymphocytes were 7.4%, and monocytes were 1%. Chemistry: Sodium on June 20, 2018, was 134, potassium 4.6, chloride 98, CO2 of 23 mmol per liter. BUN had risen to 101, creatinine was 2.6 mg/dL. Glucose was 271 mg/dL. Random glucose was 266 mg/dL. Calcium was 8.8 mg/dL, phosphorus was elevated at 6.2 mg/dL, magnesium was 2.3 mg/dL. Liver function tests were normal. BNP on June 19, 2018, was 3540. Lactic acid on admission was 4.6 and a repeat was 1.7. TSH was 0.30 (low). Arterial blood gases on June 19, 2018: pH was 7.44, pCO2 was 31.7, pO2 was 99.3, bicarbonate was 21.3, oxygen saturation was 97.8, oxygen content was -1.4. Carboxyhemoglobin was 1.7. ECG on admission revealed sinus rhythm with intraatrial conduction abnormality, inferior wall myocardial infarction of indeterminate age. LVH by voltage criteria (AVL) diffuse ST and T wave abnormalities across the precordial leads. X-ray chest June 19, 2018, single view of the chest is submitted since March 13, 2018. There are progressive congestive changes with possible left base infiltrate and fluid . There is a prominent mediastinal and rotation to the left. Correlation recommended. A CT scan of the chest without contrast revealed the followin. Extensive bilateral upper and lower lung field interstitial thickening is seen consistent with known interstitial lung disease. Associated bilateral traction bronchiectasis identified. 2. As on the prior study, superimposed interstitial pulmonary vascular congestion would be difficult to exclude on the basis of CT only. Clinical/laboratory correlation is suggested. 3. Interval resolution of a very small right pleural effusion is seen. No current infiltrate or pulmonary lesion is identified. 4. Possible mild cardiomegaly. Prominent atherosclerotic coronary calcification are visualized. 5. As on prior study, the main pulmonary artery diameter is mildly dilated, suggestive of increased pulmonary artery pressure. 6. As on prior examination, nonspecific enlarged mediastinal lymph nodes are noted without definite interval change. These enlarged lymph nodes are not present at the time of a more remote CT examination of October 31, 2016. Echocardiogram June 20, 2018. Interpretation summary: 1. The study was technically difficult with many images being suboptimal in quality. 2. Regional wall motion abnormalities cannot be excluded due to limited visualization. 3. There is borderline global hypokinesia of the left ventricle. 4. Left ventricular systolic function is borderline reduced. 5. Ejection fraction 45 to 50 percent. 6. Right ventricle is mildly dilated. 7. The right ventricular systolic function is mildly reduced. 8. The transmitral spectral Doppler flow pattern is suggestive of impaired LV relaxation. 9. There is trace tricuspid regurgitation. 10. There was insufficient TR detected to calculate RV systolic pressure. 11. There is no pericardial effusion. IMPRESSION: 1. Interstitial lung disease with recent exacerbation is partly related to new onset congestive heart failure. 2. Acute coronary event needs to be excluded in view of new electrocardiographic changes which may be on the basis of ischemia or possibly right ventricular overload. 3. Left ventricular systolic dysfunction. 4. Coronary artery disease, status post myocardial infarction, status post stenting, history of angina pectoris. 5. Insulin dependent diabetes mellitus poorly controlled (hemoglobin A1c 7.9%). 6. Diabetic neuropathy. 7. Diabetic nephropathy/proteinuria. 8. History of obstructive sleep apnea syndrome. 9. History of gout. 10. Acute on chronic renal disease. 11. Dyslipidemia type 2B. 12. History of paroxysmal atrial fibrillation, currently in sinus rhythm. 13. History of pulmonary hypertension, possibility of cor pulmonale needs to be considered. 14. History of poor compliance. 15. Exogenous obesity. RECOMMENDATION: 1. Close monitoring of renal function. 2. Follow up ECG and troponin levels. 3. Follow up BNP. 4. Continue current cardiac medications. Prognosis critical. Thank you for your referral. Time spent was 1 hour and 15 minutes. MORIS SHER M.D. [id number]
[2018-06-20] MEDS ORDERED: CEFTRIAXONE 1 GM in DEXTROSE 5%-WATER - 50 ML IVPB ONE (21:05)
[2018-06-20] MEDS: CHLORHEXIDINE GLUCONATE 4% CLEANSER FOR DECOLONIZATION TP SCH (21:06)
[2018-06-20] MEDS ORDERED: cefTRIAXone SODIUM 1 GM VIAL ONE (21:07)
[2018-06-20] MEDS: ATORVASTATIN CA 20 MG TABLET (FP) PO SCH (21:11)
[2018-06-20] MEDS: INSULIN (LEVEMIR) 100 UNITS/ML UNITS SQ SCH (22:05)
[2018-06-21] MEDS ORDERED: FUROSEMIDE 40 MG/4 ML INJECTABLE VIAL ONE (05:57)
[2018-06-21] MEDS: methylPREDNISolone NA SUCC 125 MG/2 ML VIAL IVPUSH SCH (06:04)
[2018-06-21] MEDS: FUROSEMIDE 40 MG/4 ML INJECTABLE VIAL IVPUSH SCH (06:05)
[2018-06-21] MEDS: HEPARIN NA (PORCINE) 5,000 UNITS/ML 1ML VIAL SQ SCH ×3 (06:05→21:43)
[2018-06-21] MEDS: INSULIN SLIDING SCALE (NOVOLOG) 1 VIAL SQ SCH ×5 (06:22→22:41)
[2018-06-21] MEDS: INSULIN (LEVEMIR) 100 UNITS/ML UNITS SQ SCH ×2 (06:24→22:41)
[2018-06-21 07:01] LABS: ANION GAP 11 MMOL/L (8-16); CHLORIDE 95 mmol/L (98-107); CO2 25 mmol/L (21-32); CREATININE 2.3 mg/dL (0.55-1.3); MAGNESIUM 2.5 mg/dL (1.8-2.4); PHOSPHOROUS 5.6 mg/dL (2.5-4.9); POTASSIUM 3.9 mmol/L (3.5-5.1); SODIUM 131 mmol/L (136-145)
[2018-06-21 07:13] LABS: BLOOD UREA NITROGEN 106 mg/dL (7-18); GLUCOSE,RANDOM 359 mg/dL (74-106)
[2018-06-21] MEDS ORDERED: INSULIN (LEVEMIR) 100 UNITS/ML UNITS SQ ONE (07:44)
[2018-06-21] MEDS: ALBUTEROL SO4 2.5/IPRATROPIUM 0.5 INH SOL 3 ML VIAL.NEB. NEB SCH ×4 (08:30→20:50)
[2018-06-21 08:39] LABS: BASO % 0.1 % (0-2.0); HEMATOCRIT 42.7 % (35.4-49); HEMOGLOBIN 13.9 GM/dL (11.7-16.9); LYMPH % 3.9 % (8-40); MCHC 32.6 g/dl (32.0-35.9); MONO % 3.1 % (3.8-10.2); NEUT % 92.9 % (42.8-82.8); PLATELET COUNT 189 K/MM3 (134-434); RDW 15.9 % (11.9-15.9); WHITE BLOOD COUNT 15.3 K/mm3 (4.0-10.0)
[2018-06-21] MEDS: ALLOPURINOL 100 MG TABLET (FP) PO SCH (09:18)
[2018-06-21] MEDS: CHOLECALCIFEROL (VITAMIN D3) 1,000 UNIT TABLET (FP) PO SCH (09:19)
[2018-06-21] MEDS: AZITHROMYCIN IVPB 500 MG/250 ML BAG IVPB SCH (09:19)
[2018-06-21] MEDS: ASPIRIN COATED 81 MG TABLET.EC PO SCH (09:19)
[2018-06-21] MEDS: MUPIROCIN 2% TOPICAL OINTMENT FOR DECOLONIZATION NS SCH ×2 (09:19→22:46)
[2018-06-21] MEDS: PANTOPRAZOLE 40 MG TABLET (FP) PO SCH (09:19)
--- NOTE | 2018-06-21 09:42 | PN ---
Teaching Attending Note Name of Resident: Darren Head ATTENDING PHYSICIAN STATEMENT I saw and evaluated the patient. I reviewed the resident's note and discussed the case with the resident. I agree with the resident's findings and plan as documented. SUBJECTIVE: Patient seen and examined in the ICU. Awake and alert on HFOT (35%, 35L). Some dry cough. No hemoptysis. No CP. Intake & Output 06/18/18 06/19/18 06/20/18 06/21/18 23:59 23:59 23:59 23:59 Intake Total 1120 240 Output Total 1020 1600 700 Balance -1020 -480 -460 Weight 195 lb 183 lb 4.8 oz Last Vital Signs Temp Pulse Resp BP Pulse Ox 97.5 F L 75 22 H 121/74 100 06/21/18 06:00 06/21/18 06:00 06/21/18 06:00 06/21/18 06:00 06/21/18 07:30 Active Medications Albuterol Sulfate (Ventolin 0.083% Nebulizer Soln -) 1 amp NEB Q1H PRN PRN Reason: SHORT OF BREATH/WHEEZING Albuterol/Ipratropium (Duoneb -) 1 amp NEB RQID [facility] Last Admin: 06/21/18 08:30 Dose: 1 amp Allopurinol (Zyloprim -) 50 mg PO DAILY [facility] Last Admin: 06/21/18 09:18 Dose: 50 mg Aspirin (Ecotrin -) 81 mg PO DAILY [facility] Last Admin: 06/21/18 09:19 Dose: 81 mg Atorvastatin Calcium (Lipitor -) 20 mg PO HS [facility] Last Admin: 06/20/18 21:11 Dose: 20 mg Chlorhexidine Gluconate (Hibiclens For Decolonization -) 1 applic TP [facility] Last Admin: 06/20/18 21:06 Dose: 1 applic Cholecalciferol (Vitamin D3 -) 2,000 unit PO DAILY [facility] Last Admin: 06/21/18 09:19 Dose: 2,000 unit Ezetimibe (Zetia -) 10 mg PO DAILY [facility] Last Admin: 06/20/18 11:32 Dose: 10 mg Furosemide (Lasix Injection -) 40 mg IVPUSH BID@0600,1400 [facility] Last Admin: 06/21/18 06:05 Dose: 40 mg Heparin Sodium (Porcine) (Heparin -) 5,000 unit SQ TID [facility] Last Admin: 06/21/18 06:05 Dose: 5,000 unit Azithromycin (Zithromax 500mg Ivpb (Pre-Docked)) 500 mg in 250 mls @ 250 mls/ hr IVPB DAILY [facility] Last Admin: 06/21/18 09:19 Dose: 250 mls/hr Insulin Aspart (Novolog Vial Sliding Scale -) 1 vial SQ ACHS [facility]; Protocol Last Admin: 06/21/18 06:22 Dose: 10 units Insulin Detemir (Levemir Vial) 30 units SQ BID@0700,2200 [facility] Methylprednisolone Sodium Succinate (Solu-Medrol -) 60 mg IVPUSH Q8H [facility] Last Admin: 06/21/18 06:04 Dose: 60 mg Metoprolol Succinate (Toprol Xl -) 50 mg PO HS [facility] Last Admin: 06/20/18 21:11 Dose: 50 mg Mupirocin (Bactroban Ointment (For Decolonization) -) 1 applic NS BID [facility] Stop: 06/25/18 09:59 Last Admin: 06/21/18 09:19 Dose: 1 applic Pantoprazole Sodium (Protonix -) 40 mg PO DAILY [facility] Last Admin: 06/21/18 09:19 Dose: 40 mg GENERAL: Awake, alert, and oriented, on high flow oxygen therapy, less tachypneic with speaking HEAD: Normal with no signs of trauma. EYES: Pupils equal, round and reactive to light, extraocular movements intact, sclera anicteric, conjunctiva clear. eyes slightly bulging THROAT: Moist mucous membranes. NECK: Normal range of motion, supple without lymphadenopathy, JVD, or masses. LUNGS: Coarse bibasilar crackles, no wheeze HEART: Regular rate and rhythm, normal S1 and S2 without murmur, rub or gallop. ABDOMEN: Soft, (+) BS MUSCULOSKELETAL: Normal range of motion at all joints. No bony deformities or tenderness. No CVA tenderness. UPPER EXTREMITIES: 2+ pulses, warm, well-perfused. No cyanosis. No clubbing. Cap refill <2 seconds. LOWER EXTREMITIES: 2+ pulses, warm, well-perfused. No calf tenderness. trace edema NEUROLOGICAL: Non-focal PSYCHIATRIC: Cooperative. Good eye contact. Appropriate mood and affect. SKIN: Warm, dry, normal turgor, no rashes or lesions noted. Laboratory Results - last 24 hr 06/19/18 06/19/18 06/20/18 06:00 22:47 05:30 Neutrophils % (Manual) 93.1 H Band Neutrophils % 0.0 Lymphocytes % (Manual) 5.9 L D Monocytes % (Manual) 1 L D Eosinophils % (Manual) 0.0 Basophils % (Manual) 0.0 Myelocytes % (Man) 0 Promyelocytes % (Man) 0 Blast Cells % (Manual) 0 Metamyelocytes 0 Hypochromia 0 Platelet Estimate Normal Polychromasia 0 Poikilocytosis 0 Anisocytosis 0 Microcytosis 0 Macrocytosis 0 Sodium Potassium Chloride Carbon Dioxide Anion Gap BUN Creatinine Creat Clearance w eGFR POC Glucometer Random Glucose Calcium Phosphorus Magnesium Troponin I TSH Free T4 Urine Color Yellow Urine Appearance Clear Urine pH 5.0 Ur Specific Mckee 1.012 Urine Protein Trace Urine Glucose (UA) Negative Urine Ketones Negative Urine Blood Negative Urine Nitrite Negative Urine Bilirubin Negative Urine Urobilinogen 0.2 Ur Leukocyte Esterase Negative Ur Random Potassium 55.0 Influenza A (Rapid) Influenza B (Rapid) 06/20/18 06/20/18 06/20/18 05:30 11:05 13:00 Neutrophils % (Manual) Band Neutrophils % Lymphocytes % (Manual) Monocytes % (Manual) Eosinophils % (Manual) Basophils % (Manual) Myelocytes % (Man) Promyelocytes % (Man) Blast Cells % (Manual) Metamyelocytes Hypochromia Platelet Estimate Polychromasia Poikilocytosis Anisocytosis Microcytosis Macrocytosis Sodium Potassium Chloride Carbon Dioxide Anion Gap BUN Creatinine Creat Clearance w eGFR POC Glucometer 442 Random Glucose Calcium Phosphorus Magnesium Troponin I TSH 0.30 L Free T4 Urine Color Urine Appearance Urine pH Ur Specific Mckee Urine Protein Urine Glucose (UA) Urine Ketones Urine Blood Urine Nitrite Urine Bilirubin Urine Urobilinogen Ur Leukocyte Esterase Ur Random Potassium Influenza A (Rapid) Negative Influenza B (Rapid) Negative 06/20/18 06/20/18 06/20/18 15:23 16:38 21:44 Neutrophils % (Manual) Band Neutrophils % Lymphocytes % (Manual) Monocytes % (Manual) Eosinophils % (Manual) Basophils % (Manual) Myelocytes % (Man) Promyelocytes % (Man) Blast Cells % (Manual) Metamyelocytes Hypochromia Platelet Estimate Polychromasia Poikilocytosis Anisocytosis Microcytosis Macrocytosis Sodium Potassium Chloride Carbon Dioxide Anion Gap BUN Creatinine Creat Clearance w eGFR POC Glucometer 442 418 Random Glucose Calcium Phosphorus Magnesium Troponin I < 0.02 TSH Free T4 0.98 Urine Color Urine Appearance Urine pH Ur Specific Mckee Urine Protein Urine Glucose (UA) Urine Ketones Urine Blood Urine Nitrite Urine Bilirubin Urine Urobilinogen Ur Leukocyte Esterase Ur Random Potassium Influenza A (Rapid) Influenza B (Rapid) 06/21/18 06/21/18 05:30 05:53 Neutrophils % (Manual) Band Neutrophils % Lymphocytes % (Manual) Monocytes % (Manual) Eosinophils % (Manual) Basophils % (Manual) Myelocytes % (Man) Promyelocytes % (Man) Blast Cells % (Manual) Metamyelocytes Hypochromia Platelet Estimate Polychromasia Poikilocytosis Anisocytosis Microcytosis Macrocytosis Sodium 131 L Potassium 3.9 Chloride 95 L Carbon Dioxide 25 Anion Gap 11 BUN 106 H* Creatinine 2.3 H Creat Clearance w eGFR 28.25 POC Glucometer 347 Random Glucose 359 H* Calcium 9.0 Phosphorus 5.6 H Magnesium 2.5 H Troponin I TSH Free T4 Urine Color Urine Appearance Urine pH Ur Specific Mckee Urine Protein Urine Glucose (UA) Urine Ketones Urine Blood Urine Nitrite Urine Bilirubin Urine Urobilinogen Ur Leukocyte Esterase Ur Random Potassium Influenza A (Rapid) Influenza B (Rapid) ASSESSMENT/PLAN: Acute hypoxic respiratory failure secondary to COPD / ILD R/O PNA Do not suspect Volume overload Chronic systolic heart failure Cest pain Lactic acidosis CKD Leukocytosis DMII HTN CAD COPD Gout Sleep apnea New EKG changes Wean HFOT as tolerated Would not further diurese Strict I/O monitoring; daily wts Inhaled broncodilators Wean IV steroids Noted empiric ABX PO as tolerated VTE prophylaxis Requires ICU monitoring while on High Flow O2 Dr Liz Critical care time spent in reviewing chart, evaluating patient and formulating plan - 36 minutes.
[2018-06-21] MEDS ORDERED: PT OWN MED DRAWER 7, Y5N ONE (10:29)
[2018-06-21] MEDS: EZETIMIBE 10 MG TABLET (FP) PO SCH (10:30)
--- NOTE | 2018-06-21 11:55 | PN ---
Physical Exam: SUBJECTIVE: Patient seen and examined HD# 3 ICU Day 3 Overnight Events: Hyperglycemic overnight. Started on insulin sliding scale. This morning, the pt reported his shortness of breath has improved and he feels better. Denies chest pain, weakness, or dizziness. States he was out of bed yesterday evening without difficulty. Clinic records obtained from Dr. Vu office. Last office visit was on 26 May 2018. Plan was to temporarily increase lasix, stay on prednisone 10mg daily, and stay on home oxygen with goal of SPO2 >90%. Pt was on Nintedanib ( Ofev) from Oct 2016 to recent hospital admission in Mar 2018. Trialed Pirfenidone (Esbriet) in Feb 2016 but was unable to tolerate it. Medical History/Imaging Updates from clinic records: - Pulmonary Fibrosis diagnosed in 2013. Believed to be secondary to occupational exposure. Last documented PFT on 03 Mar 2018: FVC (Predicted): 3.92 , (Actual): 2.14, %55. FEV1 (Predicted) 2.87, (Actual): 1.82, %63. FEV1/FVC: 85. TTE ECHO (02 Apr 2018): EF 50%. Mitral flow pattern consistent with impaired LV relaxation. Small area at mid interventricular septum appears mildly hypokinetic ; suspected LV diverticulum. Probably mild right ventricular dilation with mild to moderate decreased right ventricular function. Cardiac Cath (03 Apr 2018): Normal right-sided pressure, PVRI is moderately increased, PWC is normal. Extremely low cardiac output, Trudy CO = 3.5 L/min. Lower Extremity U/S (01 Apr 2018): No DVT is femoral-popliteal venous system. OBJECTIVE: Vital Signs Period Temp Pulse Resp BP Sys/Meraz Pulse Ox Last 24 Hr 97.5 F-98.2 F 75-91 15-22 116-131/53-89 100-100 Intake & Output 06/20/18 06/21/18 06/21/18 23:59 07:59 15:59 Intake Total 550 240 Output Total 800 700 Balance -250 -460 Intake: IVPB 250 Oral 300 240 Output: Urine 800 700 Void 800 700 Other: Voiding Method Urinal Urinal Bowel Movement No No Lines: - PIV Drains: - Pt refused mckeon catheter. Condom catheter did not stay in place. Monitoring I /Os with urinal at pts request. Supplemental Oxygen: - High flow nasal cannula. FiO2 @35%. Physical Exams: GENERAL: The patient was found sleeping but easily arousable to voice. Now awake , alert, and fully oriented, in no acute distress. HEAD: Normal with no signs of trauma. LUNGS: High flow nasal cannula in place. Pauses after every 8-10 words to catch breath. Breath sounds present bilaterally. Diffuse minimally coarse breath sounds without wheezing or stridor. HEART: Regular rate and rhythm, S1, S2 without murmur, rub or gallop. ABDOMEN: Soft, nontender, and nondistended. EXTREMITIES: 2+ pulses, warm, well-perfused, 1+ pretibial edema bilaterally. PSYCH: Normal mood, normal affect. SKIN: Warm and dry. Drips: - None Anti Infectives: - Vancomycin, one time dose on 06/19 - Zosyn, one time dose on 06/19 - Ceftriaxone, one time dose on 06/20 - Azithromycin (started 06/20) Laboratory Results - last 24 hr 06/20/18 06/20/18 06/20/18 13:00 15:23 16:38 WBC RBC Hgb Hct MCV MCH MCHC RDW Plt Count MPV Absolute Neuts (auto) Neutrophils % Lymphocytes % Monocytes % Eosinophils % Basophils % Nucleated RBC % Sodium Potassium Chloride Carbon Dioxide Anion Gap BUN Creatinine Creat Clearance w eGFR POC Glucometer 442 Random Glucose Calcium Phosphorus Magnesium Troponin I < 0.02 Free T4 0.98 Influenza A (Rapid) Negative Influenza B (Rapid) Negative 06/20/18 06/21/18 06/21/18 21:44 05:30 05:53 WBC RBC Hgb Hct MCV MCH MCHC RDW Plt Count MPV Absolute Neuts (auto) Neutrophils % Lymphocytes % Monocytes % Eosinophils % Basophils % Nucleated RBC % Sodium 131 L Potassium 3.9 Chloride 95 L Carbon Dioxide 25 Anion Gap 11 BUN 106 H* Creatinine 2.3 H Creat Clearance w eGFR 28.25 POC Glucometer 418 347 Random Glucose 359 H* Calcium 9.0 Phosphorus 5.6 H Magnesium 2.5 H Troponin I Free T4 Influenza A (Rapid) Influenza B (Rapid) 06/21/18 06/21/18 06:30 10:33 WBC 15.3 H RBC 4.80 Hgb 13.9 Hct 42.7 MCV 89.0 MCH 29.0 MCHC 32.6 RDW 15.9 Plt Count 189 MPV 9.0 Absolute Neuts (auto) 14.2 H Neutrophils % 92.9 H Lymphocytes % 3.9 L D Monocytes % 3.1 L D Eosinophils % 0.0 Basophils % 0.1 Nucleated RBC % 0 Sodium Potassium Chloride Carbon Dioxide Anion Gap BUN Creatinine Creat Clearance w eGFR POC Glucometer 503 Random Glucose Calcium Phosphorus Magnesium Troponin I Free T4 Influenza A (Rapid) Influenza B (Rapid) Active Medications Generic Name Dose Route Start Last Admin Trade Name Freq PRN Reason Stop Dose Admin Albuterol Sulfate 1 amp 06/19/18 20:45 Ventolin 0.083% Nebulizer Soln - NEB Q1H PRN SHORT OF BREATH/WHEEZING Albuterol/Ipratropium 1 amp 06/20/18 08:00 06/21/18 08:30 Duoneb - NEB 1 amp RQID [facility] Administration Allopurinol 50 mg 06/20/18 10:00 06/21/18 09:18 Zyloprim - PO 50 mg DAILY [facility] Administration Aspirin 81 mg 06/20/18 10:00 06/21/18 09:19 Ecotrin - PO 81 mg DAILY [facility] Administration Atorvastatin Calcium 20 mg 06/20/18 22:00 06/20/18 21:11 Lipitor - PO 20 mg HS [facility] Administration Chlorhexidine Gluconate 1 applic 06/20/18 22:00 06/20/18 21:06 Hibiclens For Decolonization - TP 1 applic HS [facility] Administration Cholecalciferol 2,000 unit 06/20/18 10:00 06/21/18 09:19 Vitamin D3 - PO 2,000 unit DAILY [facility] Administration Ezetimibe 10 mg 06/20/18 10:00 06/21/18 10:30 Zetia - PO 10 mg DAILY [facility] Administration Furosemide 40 mg 06/20/18 06:00 06/21/18 06:05 Lasix Injection - IVPUSH 40 mg BID@0600,1400 [facility] Administration Heparin Sodium (Porcine) 5,000 unit 06/20/18 06:00 06/21/18 06:05 Heparin - SQ 5,000 unit TID [facility] Administration Azithromycin 500 mg in 250 mls @ 250 mls/hr 06/20/18 10:00 06/21/18 09:19 Zithromax 500mg Ivpb (Pre-Docked) IVPB 250 mls/hr DAILY [facility] Administration Insulin Aspart 1 vial 06/21/18 11:00 06/21/18 10:57 Novolog Vial Sliding Scale - SQ Not Given ACHS [facility] Protocol Insulin Detemir 30 units 06/21/18 07:44 Levemir Vial SQ BID@0700,2200 [facility] Methylprednisolone Sodium Succinate 40 mg 06/21/18 18:00 Solu-Medrol - IVPUSH Q8H-IV [facility] Metoprolol Succinate 50 mg 06/19/18 22:00 06/20/18 21:11 Toprol Xl - PO 50 mg HS [facility] Administration Mupirocin 1 applic 06/20/18 10:00 06/21/18 09:19 Bactroban Ointment (For Decolonization) - NS 06/25/18 09:59 1 applic BID [facility] Administration Pantoprazole Sodium 40 mg 06/20/18 10:00 06/21/18 09:19 Protonix - PO 40 mg DAILY [facility] Administration ASSESSMENT/PLAN: 72 year old male with a history of CAD (s/p stent x3), HTN, HLD, CKD, Gout, DM ( insulin dependent), systolic CHF, ILD on home Oxygen and chronic steroids. Presented with shortness of breath, acute hypoxia, and increased supplemental oxygen requirements. Admitted to ICU for high flow oxygen and respiratory monitoring given comorbidities. Neuro (& Psych): - A/Ox4. No sedating gtts. - h/o of anxiety. Endocrine: - Consult Dr. Pool - DM. Hyperglycemic overnight. Increased Novolog sliding scale this morning. On 30 units Levemir scheduled BID. Suspect upward trend is related to D5 fluid required for Azithromycin piggy back. Unable to transition to NS. Will continue to monitor. - Gout. Continue home Allopurinol. - CKD. Cr [facility] Will continue to monitor. Cardiovascular: - Consult Dr. Calle - CAD s/p stent x3. Continue ASA. - HTN. Continue Metoprolol - HLD. Continue Zetia and Atorvastatin. - Flipped T waves in lateral EKG leads. No chest pain. Low suspicion for acute AL. Pulm / Resp: - Acute SOB and hypoxia. CT scan revealed no significant changes when compared to previous from earlier in the year. Small effusion noted. Low suspicion for pneumonia. More likely progression of ILD disease versus COPD exacerbation as pt s steroids are tapering, he endorses more stagnant lifestyle, was diagnosed with influenza in February 2018, and poor compliance with home oxygen therapy. - ILD and COPD on home oxygen and chronic steroids. Will attempt to wean from high flow nasal cannula to venturi mask. Will start to taper IV Methylprednisolone. Albuterol and Duonebs for bronchodilation. Hold diuresis given low suspicion for fluid overload. Genitourinary: - Strict I/Os by urinal. Infectious Disease: - Continue Azithromycin for possible acute COPD exacerbation. FEN: - Low sodium, diabetic diet Prophylaxis: - DVT: Heparin - GI: Protonix Dispo: Pt to remain in ICU while attempting to wean from high flow nasal cannula. Darren Head MD, PGY1 ICU Consult Service Visit type - Emergency Visit Emergency Visit: No - New Patient This patient is new to me today: No - Critical Care Critical Care patient: Yes Total Critical Care Time (in minutes): 40 Critical Care Statement: The care of this patient involved high complexity decision making to prevent further life threatening deterioration of the patient 's condition and/or to evaluate & treat vital organ system(s) failure or risk of failure.
--- NOTE | 2018-06-21 12:16 | PN ---
Physical Exam: SUBJECTIVE: Patient seen and examined, breathing improved, reports urinating a lot, no new complaints. OBJECTIVE: Vital Signs Period Temp Pulse Resp BP Sys/Meraz Pulse Ox Last 24 Hr 97.5 F-98.2 F 75-91 15-22 119-131/53-89 100-100 Intake & Output 06/18/18 06/19/18 06/20/18 06/21/18 23:59 23:59 23:59 23:59 Intake Total 1120 240 Output Total 1020 1600 700 Balance -1020 -480 -460 Weight 195 lb 183 lb 4.8 oz GENERAL: The patient is awake, alert, and fully oriented, in no acute distress. HEAD: Normal with no signs of trauma. EYES: PERRL, extraocular movements intact, sclera anicteric, conjunctiva clear. No ptosis. ENT: Ears normal, nares patent, oropharynx clear without exudates, moist mucous membranes. NECK: Trachea midline, full range of motion, supple. LUNGS: Breath sounds equal, clear to auscultation bilaterally, no wheezes, no crackles, no accessory muscle use. HEART: Regular rate and rhythm, S1, S2 without murmur, rub or gallop. ABDOMEN: Soft, nontender, nondistended, normoactive bowel sounds, no guarding, no rebound, no hepatosplenomegaly, no masses. EXTREMITIES: 2+ pulses, warm, well-perfused, no edema. NEUROLOGICAL: Cranial nerves II through XII grossly intact. Normal speech, gait not observed. PSYCH: Normal mood, normal affect. SKIN: Warm, dry, normal turgor, no rashes or lesions noted Laboratory Results - last 24 hr 06/20/18 06/20/18 06/20/18 13:00 15:23 16:38 WBC RBC Hgb Hct MCV MCH MCHC RDW Plt Count MPV Absolute Neuts (auto) Neutrophils % Lymphocytes % Monocytes % Eosinophils % Basophils % Nucleated RBC % Sodium Potassium Chloride Carbon Dioxide Anion Gap BUN Creatinine Creat Clearance w eGFR POC Glucometer 442 Random Glucose Calcium Phosphorus Magnesium Troponin I < 0.02 Free T4 0.98 Influenza A (Rapid) Negative Influenza B (Rapid) Negative 06/20/18 06/21/18 06/21/18 21:44 05:30 05:53 WBC RBC Hgb Hct MCV MCH MCHC RDW Plt Count MPV Absolute Neuts (auto) Neutrophils % Lymphocytes % Monocytes % Eosinophils % Basophils % Nucleated RBC % Sodium 131 L Potassium 3.9 Chloride 95 L Carbon Dioxide 25 Anion Gap 11 BUN 106 H* Creatinine 2.3 H Creat Clearance w eGFR 28.25 POC Glucometer 418 347 Random Glucose 359 H* Calcium 9.0 Phosphorus 5.6 H Magnesium 2.5 H Troponin I Free T4 Influenza A (Rapid) Influenza B (Rapid) 06/21/18 06/21/18 06:30 10:33 WBC 15.3 H RBC 4.80 Hgb 13.9 Hct 42.7 MCV 89.0 MCH 29.0 MCHC 32.6 RDW 15.9 Plt Count 189 MPV 9.0 Absolute Neuts (auto) 14.2 H Neutrophils % 92.9 H Lymphocytes % 3.9 L D Monocytes % 3.1 L D Eosinophils % 0.0 Basophils % 0.1 Nucleated RBC % 0 Sodium Potassium Chloride Carbon Dioxide Anion Gap BUN Creatinine Creat Clearance w eGFR POC Glucometer 503 Random Glucose Calcium Phosphorus Magnesium Troponin I Free T4 Influenza A (Rapid) Influenza B (Rapid) Active Medications Generic Name Dose Route Start Last Admin Trade Name Freq PRN Reason Stop Dose Admin Albuterol Sulfate 1 amp 06/19/18 20:45 Ventolin 0.083% Nebulizer Soln - NEB Q1H PRN SHORT OF BREATH/WHEEZING Albuterol/Ipratropium 1 amp 06/20/18 08:00 06/21/18 08:30 Duoneb - NEB 1 amp RQID [facility] Administration Allopurinol 50 mg 06/20/18 10:00 06/21/18 09:18 Zyloprim - PO 50 mg DAILY [facility] Administration Aspirin 81 mg 06/20/18 10:00 06/21/18 09:19 Ecotrin - PO 81 mg DAILY [facility] Administration Atorvastatin Calcium 20 mg 06/20/18 22:00 06/20/18 21:11 Lipitor - PO 20 mg HS [facility] Administration Chlorhexidine Gluconate 1 applic 06/20/18 22:00 06/20/18 21:06 Hibiclens For Decolonization - TP 1 applic HS [facility] Administration Cholecalciferol 2,000 unit 06/20/18 10:00 06/21/18 09:19 Vitamin D3 - PO 2,000 unit DAILY [facility] Administration Ezetimibe 10 mg 06/20/18 10:00 06/21/18 10:30 Zetia - PO 10 mg DAILY [facility] Administration Furosemide 40 mg 06/20/18 06:00 06/21/18 06:05 Lasix Injection - IVPUSH 40 mg BID@0600,1400 [facility] Administration Heparin Sodium (Porcine) 5,000 unit 06/20/18 06:00 06/21/18 06:05 Heparin - SQ 5,000 unit TID [facility] Administration Azithromycin 500 mg in 250 mls @ 250 mls/hr 06/20/18 10:00 06/21/18 09:19 Zithromax 500mg Ivpb (Pre-Docked) IVPB 250 mls/hr DAILY [facility] Administration Insulin Aspart 1 vial 06/21/18 11:00 06/21/18 10:57 Novolog Vial Sliding Scale - SQ Not Given [facility] Protocol Insulin Detemir 30 units 06/21/18 07:44 Levemir Vial SQ BID@0700,2200 [facility] Methylprednisolone Sodium Succinate 40 mg 06/21/18 18:00 Solu-Medrol - IVPUSH Q8H-IV [facility] Metoprolol Succinate 50 mg 06/19/18 22:00 06/20/18 21:11 Toprol Xl - PO 50 mg HS [facility] Administration Mupirocin 1 applic 06/20/18 10:00 06/21/18 09:19 Bactroban Ointment (For Decolonization) - NS 06/25/18 09:59 1 applic BID [facility] Administration Pantoprazole Sodium 40 mg 06/20/18 10:00 06/21/18 09:19 Protonix - PO 40 mg DAILY [facility] Administration Microbiology 06/19/18 18:30 Blood - Peripheral Venous Blood Culture - Preliminary NO GROWTH OBTAINED AFTER 24 HOURS, INCUBATION TO CONTINUE FOR 4 DAYS. 06/19/18 18:30 Blood - Peripheral Venous Blood Culture - Preliminary NO GROWTH OBTAINED AFTER 24 HOURS, INCUBATION TO CONTINUE FOR 4 DAYS. ASSESSMENT/PLAN: 72 yom with PMhx of COPD, Steroid/oxygen (3L) dependent Pulmonary fibrosis/ILD , SHANTI on CPAP at night, Pulmonary HTN, CKD stage II, LV systolic dysfunction, prior admissions for CHF, CAD s/p HI, 2Stents , T2DM on Insulin, Hypercholesterolemia admitted with progressive exertional dyspnea and hypoxia. -Acute hypoxic respiratory failure -Suspected acute on chronic systolic heart failure exacerbation -Steroid oxygen dependent COPD/ILD +/- Flare -r/o PNA -New EKG changes with new LV WMA and worsening LV systolic function -IDDM with severe hyperglycemia in the setting of high dose steroids -TAZ on CKD stage II, suspect from CHF/worsening LV function with poor perfusion -CAD s/p PCI -HLD Plan: Clinically Improved. 2D echo and EKG noted. Cardiology input noted. BUN rising, cr overall unchanged. Hold further diuresis today, Follow up renal recs. Renal/bladder US noted. Continue ASA/statin/metoprolol. Steroids, taper as improves. Nebs. Empiric ceftriaxone/azithromycin for now. Follow up cultures. Patient known from prior admission, on high doses of insulin at home. Increase levemir to 30 units BID and cont ISS to start at 4 units for 50 above 150 DVTPPX heparin Dispo pending clinical improvement Plan discussed with patient in detail, all questions answered. Total critical care time spent 37 min. Visit type - Emergency Visit Emergency Visit: Yes ED Registration Date: 06/19/18 Care time: The patient presented to the Emergency Department on the above date and was hospitalized for further evaluation of their emergent condition. - New Patient This patient is new to me today: No - Critical Care Critical Care patient: Yes Total Critical Care Time (in minutes): 37 Critical Care Statement: The care of this patient involved high complexity decision making to prevent further life threatening deterioration of the patient 's condition and/or to evaluate & treat vital organ system(s) failure or risk of failure.
[2018-06-21 12:42] LABS: ANISOCYTOSIS 2+; MACROCYTOSIS 1+; OVALOCYTE 1+; PLATELET ESTIMATE NORMAL
--- NOTE | 2018-06-21 13:44 | PN ---
Progress Note (short form) - Note Progress Note: covering dr blount CKD TAZ on chronic s/p fluid overload Pmhx COPD, Steroid/oxygen (3L) dependent Pulmonary fibrosis/ILD, SHANTI on CPAP at night, Pulmonary HTN, CKD stage II, LV systolic dysfunction, prior admissions for CHF, CAD s/p PA, 2Stents , T2DM on Insulin, Hypercholesterolemia cc: progressive exertional dyspnea and hypoxia. Active Medications Albuterol Sulfate (Ventolin 0.083% Nebulizer Soln -) 1 amp NEB Q1H PRN PRN Reason: SHORT OF BREATH/WHEEZING Albuterol/Ipratropium (Duoneb -) 1 amp NEB RQID [facility] Last Admin: 06/21/18 12:53 Dose: 1 amp Allopurinol (Zyloprim -) 50 mg PO DAILY [facility] Last Admin: 06/21/18 09:18 Dose: 50 mg Aspirin (Ecotrin -) 81 mg PO DAILY [facility] Last Admin: 06/21/18 09:19 Dose: 81 mg Atorvastatin Calcium (Lipitor -) 20 mg PO HS [facility] Last Admin: 06/20/18 21:11 Dose: 20 mg Chlorhexidine Gluconate (Hibiclens For Decolonization -) 1 applic TP HS [facility] Last Admin: 06/20/18 21:06 Dose: 1 applic Cholecalciferol (Vitamin D3 -) 2,000 unit PO DAILY [facility] Last Admin: 06/21/18 09:19 Dose: 2,000 unit Ezetimibe (Zetia -) 10 mg PO DAILY [facility] Last Admin: 06/21/18 10:30 Dose: 10 mg Furosemide (Lasix Injection -) 40 mg IVPUSH BID@0600,1400 [facility] Last Admin: 06/21/18 06:05 Dose: 40 mg Heparin Sodium (Porcine) (Heparin -) 5,000 unit SQ TID [facility] Last Admin: 06/21/18 13:29 Dose: 5,000 unit Azithromycin (Zithromax 500mg Ivpb (Pre-Docked)) 500 mg in 250 mls @ 250 mls/ hr IVPB DAILY [facility] Last Admin: 06/21/18 09:19 Dose: 250 mls/hr Insulin Aspart (Novolog Vial Sliding Scale -) 1 vial SQ ACHS [facility]; Protocol Last Admin: 06/21/18 10:57 Dose: Not Given Insulin Detemir (Levemir Vial) 30 units SQ BID@0700,2200 [facility] Methylprednisolone Sodium Succinate (Solu-Medrol -) 40 mg IVPUSH Q8H-IV [facility] Metoprolol Succinate (Toprol Xl -) 50 mg PO HS [facility] Last Admin: 06/20/18 21:11 Dose: 50 mg Mupirocin (Bactroban Ointment (For Decolonization) -) 1 applic NS BID [facility] Stop: 06/25/18 09:59 Last Admin: 06/21/18 09:19 Dose: 1 applic Pantoprazole Sodium (Protonix -) 40 mg PO DAILY [facility] Last Admin: 06/21/18 09:19 Dose: 40 mg Last Vital Signs Temp Pulse Resp BP Pulse Ox 97.5 F L 81 22 H 135/84 100 06/21/18 06:00 06/21/18 12:00 06/21/18 12:00 06/21/18 12:00 06/21/18 07:30 alert in nad Lungs no rales Heart reg Abd soft nontender ext no edema 06/20/18 06/21/18 06/21/18 05:30 05:30 06:30 WBC 15.3 H Hgb 13.9 Hct 42.7 Sodium 134 L 131 L Potassium 4.6 3.9 Chloride 95 L Carbon Dioxide 25 BUN 101 H 106 H* Creatinine 2.6 H 2.3 H Magnesium 2.3 2.5 H IMP taz fluid overload copd Plan - same rx
[2018-06-21 14:36] VITALS: BMI 28.6
--- NOTE | 2018-06-21 15:12 | EKG ---
Test Reason : Blood Pressure : / mmHG Vent. Rate : 088 BPM Atrial Rate : 088 BPM P-R Int : 216 ms QRS Dur : 118 ms QT Int : 384 ms P-R-T Axes : 019 -09 -18 degrees QTc Int : 464 ms SINUS RHYTHM WITH 1ST DEGREE A-V BLOCK LEFT VENTRICULAR HYPERTROPHY WITH QRS WIDENING INFERIOR INFARCT (CITED ON OR BEFORE 18-OCT-1999) T WAVE ABNORMALITY, CONSIDER ANTERIOR ISCHEMIA ABNORMAL ECG WHEN COMPARED WITH ECG OF 19-JUN-2018 19:32, COMPARED TO EKG NO SIGNIFICANT CHANGE IS FOUND Confirmed by OUMAR KATZ MD ([id number]) on 06/21/2018 3:12:14 PM Referred By: Elizabeth MONTANO Confirmed By:OUMAR KATZ MD
[2018-06-21] MEDS: methylPREDNISolone NA SUCC 40 MG/1 ML VIAL IVPUSH SCH (17:04)
[2018-06-21] MEDS: ATORVASTATIN CA 20 MG TABLET (FP) PO SCH (21:43)
[2018-06-21] MEDS: CHLORHEXIDINE GLUCONATE 4% CLEANSER FOR DECOLONIZATION TP SCH (22:47)
[2018-06-22] MEDS: methylPREDNISolone NA SUCC 40 MG/1 ML VIAL IVPUSH SCH (02:26)
[2018-06-22] MEDS: HEPARIN NA (PORCINE) 5,000 UNITS/ML 1ML VIAL SQ SCH ×3 (05:17→21:45)
[2018-06-22] MEDS: INSULIN SLIDING SCALE (NOVOLOG) 1 VIAL SQ SCH ×4 (06:37→22:21)
[2018-06-22] MEDS: INSULIN (LEVEMIR) 100 UNITS/ML UNITS SQ SCH (06:38)
[2018-06-22 06:53] LABS: ANION GAP 13 MMOL/L (8-16); CHLORIDE 99 mmol/L (98-107); CO2 24 mmol/L (21-32); CREATININE 2.4 mg/dL (0.55-1.3); MAGNESIUM 2.8 mg/dL (1.8-2.4); PHOSPHOROUS 5.9 mg/dL (2.5-4.9); POTASSIUM 3.7 mmol/L (3.5-5.1); SODIUM 136 mmol/L (136-145)
[2018-06-22 07:09] LABS: BLOOD UREA NITROGEN 110 mg/dL (7-18); GLUCOSE,RANDOM 336 mg/dL (74-106)
[2018-06-22 07:28] LABS: HEMATOCRIT 42.1 % (35.4-49); HEMOGLOBIN 13.9 GM/dL (11.7-16.9); MCH 29.3 pg (25.7-33.7); MEAN CELL VOLUME 88.6 fl (80-96); MEAN PLT VOLUME 8.8 fl (7.5-11.1); PLATELET COUNT 181 K/MM3 (134-434); RBC 4.75 M/mm3 (4.00-5.60); RDW 15.3 % (11.9-15.9); WHITE BLOOD COUNT 16.8 K/mm3 (4.0-10.0)
[2018-06-22] MEDS: ALBUTEROL SO4 2.5/IPRATROPIUM 0.5 INH SOL 3 ML VIAL.NEB. NEB SCH ×4 (08:40→20:21)
--- NOTE | 2018-06-22 09:49 | PN ---
Teaching Attending Note Name of Resident: Philip Bowles ATTENDING PHYSICIAN STATEMENT I saw and evaluated the patient. I reviewed the resident's note and discussed the case with the resident. I agree with the resident's findings and plan as documented. SUBJECTIVE: Patient seen and examined in the ICU. Awake and alert on 3 L NC O2. Some dry cough. No hemoptysis. No CP. Does report some dizziness when standing. Intake & Output 06/19/18 06/20/18 06/21/18 06/22/18 23:59 23:59 23:59 23:59 Intake Total 1120 1565 300 Output Total 1020 1600 2750 600 Balance -1020 -480 -1185 -300 Weight 195 lb 183 lb 4.8 oz 183 lb 174 lb 4.8 oz Last Vital Signs Temp Pulse Resp BP Pulse Ox 98.1 F 91 H 22 H 120/82 99 06/22/18 06:00 06/22/18 09:22 06/22/18 09:22 06/22/18 09:22 06/22/18 09:22 Active Medications Albuterol Sulfate (Ventolin 0.083% Nebulizer Soln -) 1 amp NEB Q1H PRN PRN Reason: SHORT OF BREATH/WHEEZING Albuterol/Ipratropium (Duoneb -) 1 amp NEB RQID [facility] Last Admin: 06/22/18 08:40 Dose: 1 amp Allopurinol (Zyloprim -) 50 mg PO DAILY [facility] Last Admin: 06/21/18 09:18 Dose: 50 mg Aspirin (Ecotrin -) 81 mg PO DAILY [facility] Last Admin: 06/21/18 09:19 Dose: 81 mg Atorvastatin Calcium (Lipitor -) 20 mg PO HS [facility] Last Admin: 06/21/18 21:43 Dose: 20 mg Chlorhexidine Gluconate (Hibiclens For Decolonization -) 1 applic TP HS [facility] Last Admin: 06/21/18 22:47 Dose: 1 applic Cholecalciferol (Vitamin D3 -) 2,000 unit PO DAILY [facility] Last Admin: 06/21/18 09:19 Dose: 2,000 unit Ezetimibe (Zetia -) 10 mg PO DAILY [facility] Last Admin: 06/21/18 10:30 Dose: 10 mg Furosemide (Lasix -) 40 mg PO DAILY [facility] Heparin Sodium (Porcine) (Heparin -) 5,000 unit SQ TID [facility] Last Admin: 06/22/18 05:17 Dose: 5,000 unit Azithromycin (Zithromax 500mg Ivpb (Pre-Docked)) 500 mg in 250 mls @ 250 mls/ hr IVPB DAILY [facility] Last Admin: 06/21/18 09:19 Dose: 250 mls/hr Insulin Aspart (Novolog Vial Sliding Scale -) 1 vial SQ ACHS [facility]; Protocol Insulin Detemir (Levemir Vial) 35 units SQ BID@0700,2200 [facility] Metoprolol Succinate (Toprol Xl -) 50 mg PO HS [facility] Last Admin: 06/21/18 21:43 Dose: 50 mg Mupirocin (Bactroban Ointment (For Decolonization) -) 1 applic NS BID [facility] Stop: 06/25/18 09:59 Last Admin: 06/21/18 22:46 Dose: 1 applic Pantoprazole Sodium (Protonix -) 40 mg PO DAILY [facility] Last Admin: 06/21/18 09:19 Dose: 40 mg Prednisone (Deltasone -) 40 mg PO DAILY [facility] GENERAL: Awake, alert, and oriented, on 3 L NC O2 HEAD: Normal with no signs of trauma. EYES: Pupils equal, round and reactive to light, extraocular movements intact, sclera anicteric, conjunctiva clear. eyes slightly bulging THROAT: Moist mucous membranes. NECK: Normal range of motion, supple without lymphadenopathy, JVD, or masses. LUNGS: Less coarse bibasilar crackles, no wheeze HEART: Regular rate and rhythm, normal S1 and S2 without murmur, rub or gallop. ABDOMEN: Soft, (+) BS MUSCULOSKELETAL: Normal range of motion at all joints. No bony deformities or tenderness. No CVA tenderness. UPPER EXTREMITIES: 2+ pulses, warm, well-perfused. No cyanosis. No clubbing. Cap refill <2 seconds. LOWER EXTREMITIES: 2+ pulses, warm, well-perfused. No calf tenderness. trace edema NEUROLOGICAL: Non-focal PSYCHIATRIC: Cooperative. Good eye contact. Appropriate mood and affect. SKIN: Warm, dry, normal turgor, no rashes or lesions noted. Laboratory Results - last 24 hr 06/20/18 06/21/18 06/21/18 15:23 06:30 10:33 WBC 15.3 H RBC 4.80 Hgb 13.9 Hct 42.7 MCV 89.0 MCH 29.0 MCHC 32.6 RDW 15.9 Plt Count 189 MPV 9.0 Absolute Neuts (auto) 14.2 H Neutrophils % 92.9 H Neutrophils % (Manual) 93.9 H Band Neutrophils % 0.0 Lymphocytes % 3.9 L D Lymphocytes % (Manual) 1.0 L D Monocytes % 3.1 L D Monocytes % (Manual) 2 L D Eosinophils % 0.0 Eosinophils % (Manual) 0.0 Basophils % 0.1 Basophils % (Manual) 0.0 Myelocytes % (Man) 0 Promyelocytes % (Man) 0 Blast Cells % (Manual) 0 Nucleated RBC % 0 Metamyelocytes 0 Hypochromia 0 Platelet Estimate Normal Platelet Comment Present Polychromasia 1+ Poikilocytosis 2+ Anisocytosis 2+ Microcytosis 0 Macrocytosis 1+ Spherocytes 1+ Ovalocytes 1+ Sodium Potassium Chloride Carbon Dioxide Anion Gap BUN Creatinine Creat Clearance w eGFR POC Glucometer 503 Random Glucose Calcium Phosphorus Magnesium Total T3 86.00 06/21/18 06/21/18 06/22/18 16:58 22:29 02:29 WBC RBC Hgb Hct MCV MCH MCHC RDW Plt Count MPV Absolute Neuts (auto) Neutrophils % Neutrophils % (Manual) Band Neutrophils % Lymphocytes % Lymphocytes % (Manual) Monocytes % Monocytes % (Manual) Eosinophils % Eosinophils % (Manual) Basophils % Basophils % (Manual) Myelocytes % (Man) Promyelocytes % (Man) Blast Cells % (Manual) Nucleated RBC % Metamyelocytes Hypochromia Platelet Estimate Platelet Comment Polychromasia Poikilocytosis Anisocytosis Microcytosis Macrocytosis Spherocytes Ovalocytes Sodium Potassium Chloride Carbon Dioxide Anion Gap BUN Creatinine Creat Clearance w eGFR POC Glucometer 472 469 404 Random Glucose Calcium Phosphorus Magnesium Total T3 06/22/18 06/22/18 06/22/18 05:30 05:30 06:08 WBC 16.8 H RBC 4.75 Hgb 13.9 Hct 42.1 MCV 88.6 MCH 29.3 MCHC 33.0 RDW 15.3 Plt Count 181 MPV 8.8 Absolute Neuts (auto) Neutrophils % Neutrophils % (Manual) Band Neutrophils % Lymphocytes % Lymphocytes % (Manual) Monocytes % Monocytes % (Manual) Eosinophils % Eosinophils % (Manual) Basophils % Basophils % (Manual) Myelocytes % (Man) Promyelocytes % (Man) Blast Cells % (Manual) Nucleated RBC % Metamyelocytes Hypochromia Platelet Estimate Platelet Comment Polychromasia Poikilocytosis Anisocytosis Microcytosis Macrocytosis Spherocytes Ovalocytes Sodium 136 Potassium 3.7 Chloride 99 Carbon Dioxide 24 Anion Gap 13 BUN 110 H* Creatinine 2.4 H Creat Clearance w eGFR 26.90 POC Glucometer 361 Random Glucose 336 H* Calcium 9.0 Phosphorus 5.9 H Magnesium 2.8 H Total T3 ASSESSMENT/PLAN: Acute hypoxic respiratory failure secondary to COPD / ILD R/O PNA Do not suspect Volume overload Chronic systolic heart failure Cest pain Lactic acidosis CKD Leukocytosis DMII HTN CAD COPD Gout Sleep apnea New EKG changes O2 as needed to maintain saturation Change Lasix to 40mg PO OD Strict I/O monitoring; daily wts Inhaled broncodilators Change Medrol to Prednisone ABX PO as tolerated VTE prophylaxis 4W / 4S monitoring Dr Liz
[2018-06-22] MEDS ORDERED: methylPREDNISolone NA SUCC 40 MG/1 ML VIAL IVPUSH SCH (10:00)
[2018-06-22] MEDS ORDERED: PT OWN MED DRAWER 7, Y5N ONE (10:02)
[2018-06-22] MEDS: ALLOPURINOL 100 MG TABLET (FP) PO SCH (10:36)
[2018-06-22] MEDS: FUROSEMIDE 40 MG TABLET (FP) PO SCH (10:37)
[2018-06-22] MEDS: PANTOPRAZOLE 40 MG TABLET (FP) PO SCH (10:37)
[2018-06-22] MEDS: predniSONE 20 MG TABLET (UD) PO SCH (10:37)
[2018-06-22] MEDS: ASPIRIN COATED 81 MG TABLET.EC PO SCH (10:37)
[2018-06-22] MEDS: CHOLECALCIFEROL (VITAMIN D3) 1,000 UNIT TABLET (FP) PO SCH (10:38)
[2018-06-22] MEDS: EZETIMIBE 10 MG TABLET (FP) PO SCH (10:38)
[2018-06-22] MEDS: AZITHROMYCIN IVPB 500 MG/250 ML BAG IVPB SCH (10:38)
--- NOTE | 2018-06-22 10:42 | PN ---
Physical Exam: SUBJECTIVE: Patient seen and examined at bedside. No new complaints. new events overnight OBJECTIVE: Vital Signs Period Temp Pulse Resp BP Sys/Meraz Pulse Ox Last 24 Hr 97.6 F-98.2 F 77-91 11-22 107-136/66-91 93-99 GENERAL: The patient is awake, alert, and fully oriented, in no acute distress. HEAD: Normal with no signs of trauma. EYES: PERRL, extraocular movements intact, sclera anicteric, conjunctiva clear. No ptosis. LUNGS: Breath sounds equal, Fine crackles heard b/l, no accessory muscle use. HEART: Regular rate and rhythm, S1, S2 without murmur, rub or gallop. ABDOMEN: Soft, nontender, nondistended, normoactive bowel sounds, no guarding, no rebound. EXTREMITIES: 2+ pulses, warm, well-perfused, no edema. NEUROLOGICAL: Cranial nerves II through X grossly intact. Normal speech. SKIN: Warm, dry, normal turgor, no rashes or lesions noted Laboratory Results - last 24 hr 06/20/18 06/21/18 06/21/18 15:23 06:30 16:58 WBC RBC Hgb Hct MCV MCH MCHC RDW Plt Count MPV Neutrophils % (Manual) 93.9 H Band Neutrophils % 0.0 Lymphocytes % (Manual) 1.0 L D Monocytes % (Manual) 2 L D Eosinophils % (Manual) 0.0 Basophils % (Manual) 0.0 Myelocytes % (Man) 0 Promyelocytes % (Man) 0 Blast Cells % (Manual) 0 Metamyelocytes 0 Hypochromia 0 Platelet Estimate Normal Platelet Comment Present Polychromasia 1+ Poikilocytosis 2+ Anisocytosis 2+ Microcytosis 0 Macrocytosis 1+ Spherocytes 1+ Ovalocytes 1+ Sodium Potassium Chloride Carbon Dioxide Anion Gap BUN Creatinine Creat Clearance w eGFR POC Glucometer 472 Random Glucose Calcium Phosphorus Magnesium Total T3 86.00 06/21/18 06/22/18 06/22/18 22:29 02:29 05:30 WBC 16.8 H RBC 4.75 Hgb 13.9 Hct 42.1 MCV 88.6 MCH 29.3 MCHC 33.0 RDW 15.3 Plt Count 181 MPV 8.8 Neutrophils % (Manual) Band Neutrophils % Lymphocytes % (Manual) Monocytes % (Manual) Eosinophils % (Manual) Basophils % (Manual) Myelocytes % (Man) Promyelocytes % (Man) Blast Cells % (Manual) Metamyelocytes Hypochromia Platelet Estimate Platelet Comment Polychromasia Poikilocytosis Anisocytosis Microcytosis Macrocytosis Spherocytes Ovalocytes Sodium Potassium Chloride Carbon Dioxide Anion Gap BUN Creatinine Creat Clearance w eGFR POC Glucometer 469 404 Random Glucose Calcium Phosphorus Magnesium Total T3 06/22/18 06/22/18 05:30 06:08 WBC RBC Hgb Hct MCV MCH MCHC RDW Plt Count MPV Neutrophils % (Manual) Band Neutrophils % Lymphocytes % (Manual) Monocytes % (Manual) Eosinophils % (Manual) Basophils % (Manual) Myelocytes % (Man) Promyelocytes % (Man) Blast Cells % (Manual) Metamyelocytes Hypochromia Platelet Estimate Platelet Comment Polychromasia Poikilocytosis Anisocytosis Microcytosis Macrocytosis Spherocytes Ovalocytes Sodium 136 Potassium 3.7 Chloride 99 Carbon Dioxide 24 Anion Gap 13 BUN 110 H* Creatinine 2.4 H Creat Clearance w eGFR 26.90 POC Glucometer 361 Random Glucose 336 H* Calcium 9.0 Phosphorus 5.9 H Magnesium 2.8 H Total T3 Active Medications Generic Name Dose Route Start Last Admin Trade Name Freq PRN Reason Stop Dose Admin Albuterol Sulfate 1 amp 06/19/18 20:45 Ventolin 0.083% Nebulizer Soln - NEB Q1H PRN SHORT OF BREATH/WHEEZING Albuterol/Ipratropium 1 amp 06/20/18 08:00 06/22/18 08:40 Duoneb - NEB 1 amp RQID [facility] Administration Allopurinol 50 mg 06/20/18 10:00 06/22/18 10:36 Zyloprim - PO 50 mg DAILY [facility] Administration Aspirin 81 mg 06/20/18 10:00 06/22/18 10:37 Ecotrin - PO 81 mg DAILY [facility] Administration Atorvastatin Calcium 20 mg 06/20/18 22:00 06/21/18 21:43 Lipitor - PO 20 mg HS [facility] Administration Chlorhexidine Gluconate 1 applic 06/20/18 22:00 06/21/18 22:47 Hibiclens For Decolonization - TP 1 applic HS [facility] Administration Cholecalciferol 2,000 unit 06/20/18 10:00 06/22/18 10:38 Vitamin D3 - PO 2,000 unit DAILY [facility] Administration Ezetimibe 10 mg 06/20/18 10:00 06/22/18 10:38 Zetia - PO 10 mg DAILY [facility] Administration Furosemide 40 mg 06/22/18 10:00 06/22/18 10:37 Lasix - PO 40 mg DAILY [facility] Administration Heparin Sodium (Porcine) 5,000 unit 06/20/18 06:00 06/22/18 05:17 Heparin - SQ 5,000 unit TID [facility] Administration Azithromycin 500 mg in 250 mls @ 250 mls/hr 06/20/18 10:00 06/22/18 10:38 Zithromax 500mg Ivpb (Pre-Docked) IVPB 250 mls/hr DAILY [facility] Administration Insulin Aspart 1 vial 06/22/18 11:00 Novolog Vial Sliding Scale - SQ ACHS [facility] Protocol Insulin Detemir 35 units 06/22/18 22:00 Levemir Vial SQ BID@0700,2200 [facility] Metoprolol Succinate 50 mg 06/19/18 22:00 06/21/18 21:43 Toprol Xl - PO 50 mg HS [facility] Administration Mupirocin 1 applic 06/20/18 10:00 06/21/18 22:46 Bactroban Ointment (For Decolonization) - NS 06/25/18 09:59 1 applic BID [facility] Administration Pantoprazole Sodium 40 mg 06/20/18 10:00 06/22/18 10:37 Protonix - PO 40 mg DAILY [facility] Administration Prednisone 40 mg 06/22/18 10:00 06/22/18 10:37 Deltasone - PO 40 mg DAILY [facility] Administration ASSESSMENT/PLAN: 72 year old male with a history of CAD (s/p stent x3), HTN, HLD, CKD, Gout, DM ( insulin dependent), systolic CHF, ILD on home Oxygen and chronic steroids. Admitted to ICU for respiratory monitoring given comorbidities. Neuro (& Psych): - A/Ox4. No sedating gtts. - h/o of anxiety. Endocrine: - Consult Dr. Pool - DM. Increased Novolog sliding scale yesterday. On 30 units Levemir scheduled BID. Sugars continue to be high this AM, will monitor. - Gout. Continue home Allopurinol. - CKD. Cr above recent baseline documented in [employer]. Will continue to monitor. Cardiovascular: - Consult Dr. Calle - CAD s/p stent x3. Continue ASA. - HTN. Continue Metoprolol - HLD. Continue Zetia and Atorvastatin. -Patient now euvolemic and c/o lightheadedness. Will d/c Lasix IV BID and switch to lasix 40mg PO daily. Pulm / Resp: - Acute SOB and hypoxia. CT scan revealed no significant changes when compared to previous from earlier in the year. Small effusion noted. Low suspicion for pneumonia. More likely progression of ILD disease versus COPD exacerbation as pt s steroids are tapering, he endorses more stagnant lifestyle, was diagnosed with influenza in February 2018, and poor compliance with home oxygen therapy. - ILD and COPD on home oxygen and chronic steroids. Patient saturating well on home dose of 3L NC. Will taper steriods to PO prednisone 40mg daily. Genitourinary: - Strict I/Os by urinal. Infectious Disease: - Continue Azithromycin for possible acute COPD exacerbation. FEN: - Low sodium, diabetic diet Prophylaxis: - DVT: Heparin - GI: Protonix Dispo: -Patient stable for transfer to telemetry floor Visit type - Emergency Visit Emergency Visit: Yes ED Registration Date: 06/19/18 Care time: The patient presented to the Emergency Department on the above date and was hospitalized for further evaluation of their emergent condition. - New Patient This patient is new to me today: No - Critical Care Critical Care patient: No - Discharge Referral Referred to [facility] No
[2018-06-22] MEDS: MUPIROCIN 2% TOPICAL OINTMENT FOR DECOLONIZATION NS SCH ×2 (11:04→21:39)
--- NOTE | 2018-06-22 12:05 | PN ---
Physical Exam: SUBJECTIVE: Patient seen and examined, breathing better, urinating a lot, no new complaints. OBJECTIVE: Vital Signs Period Temp Pulse Resp BP Sys/Meraz Pulse Ox Last 24 Hr 97.6 F-98.2 F 77-91 11-22 107-136/66-91 93-99 GENERAL: sitting in chair, mild tachypnea, able to speak in full sentences Chest: bibasilar fine rales, improved air entry Abdomen:soft, Obese, NT Extremities: trace pedal edema Neck:soft, supple, no JVD visualized CVS:S1S2 irregular Laboratory Results - last 24 hr 06/20/18 06/21/18 06/21/18 15:23 06:30 16:58 WBC RBC Hgb Hct MCV MCH MCHC RDW Plt Count MPV Neutrophils % (Manual) 93.9 H Band Neutrophils % 0.0 Lymphocytes % (Manual) 1.0 L D Monocytes % (Manual) 2 L D Eosinophils % (Manual) 0.0 Basophils % (Manual) 0.0 Myelocytes % (Man) 0 Promyelocytes % (Man) 0 Blast Cells % (Manual) 0 Metamyelocytes 0 Hypochromia 0 Platelet Estimate Normal Platelet Comment Present Polychromasia 1+ Poikilocytosis 2+ Anisocytosis 2+ Microcytosis 0 Macrocytosis 1+ Spherocytes 1+ Ovalocytes 1+ Sodium Potassium Chloride Carbon Dioxide Anion Gap BUN Creatinine Creat Clearance w eGFR POC Glucometer 472 Random Glucose Calcium Phosphorus Magnesium Total T3 86.00 06/21/18 06/22/18 06/22/18 22:29 02:29 05:30 WBC 16.8 H RBC 4.75 Hgb 13.9 Hct 42.1 MCV 88.6 MCH 29.3 MCHC 33.0 RDW 15.3 Plt Count 181 MPV 8.8 Neutrophils % (Manual) Band Neutrophils % Lymphocytes % (Manual) Monocytes % (Manual) Eosinophils % (Manual) Basophils % (Manual) Myelocytes % (Man) Promyelocytes % (Man) Blast Cells % (Manual) Metamyelocytes Hypochromia Platelet Estimate Platelet Comment Polychromasia Poikilocytosis Anisocytosis Microcytosis Macrocytosis Spherocytes Ovalocytes Sodium Potassium Chloride Carbon Dioxide Anion Gap BUN Creatinine Creat Clearance w eGFR POC Glucometer 469 404 Random Glucose Calcium Phosphorus Magnesium Total T3 06/22/18 06/22/18 06/22/18 05:30 06:08 11:02 WBC RBC Hgb Hct MCV MCH MCHC RDW Plt Count MPV Neutrophils % (Manual) Band Neutrophils % Lymphocytes % (Manual) Monocytes % (Manual) Eosinophils % (Manual) Basophils % (Manual) Myelocytes % (Man) Promyelocytes % (Man) Blast Cells % (Manual) Metamyelocytes Hypochromia Platelet Estimate Platelet Comment Polychromasia Poikilocytosis Anisocytosis Microcytosis Macrocytosis Spherocytes Ovalocytes Sodium 136 Potassium 3.7 Chloride 99 Carbon Dioxide 24 Anion Gap 13 BUN 110 H* Creatinine 2.4 H Creat Clearance w eGFR 26.90 POC Glucometer 361 495 Random Glucose 336 H* Calcium 9.0 Phosphorus 5.9 H Magnesium 2.8 H Total T3 Active Medications Generic Name Dose Route Start Last Admin Trade Name Freq PRN Reason Stop Dose Admin Albuterol Sulfate 1 amp 06/19/18 20:45 Ventolin 0.083% Nebulizer Soln - NEB Q1H PRN SHORT OF BREATH/WHEEZING Albuterol/Ipratropium 1 amp 06/20/18 08:00 06/22/18 11:07 Duoneb - NEB 1 amp RQID [facility] Administration Allopurinol 50 mg 06/20/18 10:00 06/22/18 10:36 Zyloprim - PO 50 mg DAILY [facility] Administration Aspirin 81 mg 06/20/18 10:00 06/22/18 10:37 Ecotrin - PO 81 mg DAILY [facility] Administration Atorvastatin Calcium 20 mg 06/20/18 22:00 06/21/18 21:43 Lipitor - PO 20 mg HS [facility] Administration Chlorhexidine Gluconate 1 applic 06/20/18 22:00 06/21/18 22:47 Hibiclens For Decolonization - TP 1 applic HS [facility] Administration Cholecalciferol 2,000 unit 06/20/18 10:00 06/22/18 10:38 Vitamin D3 - PO 2,000 unit DAILY [facility] Administration Ezetimibe 10 mg 06/20/18 10:00 06/22/18 10:38 Zetia - PO 10 mg DAILY [facility] Administration Furosemide 40 mg 06/22/18 10:00 06/22/18 10:37 Lasix - PO 40 mg DAILY [facility] Administration Heparin Sodium (Porcine) 5,000 unit 06/20/18 06:00 06/22/18 05:17 Heparin - SQ 5,000 unit TID [facility] Administration Azithromycin 500 mg in 250 mls @ 250 mls/hr 06/20/18 10:00 06/22/18 10:38 Zithromax 500mg Ivpb (Pre-Docked) IVPB 250 mls/hr DAILY [facility] Administration Insulin Aspart 1 vial 06/22/18 11:00 06/22/18 11:04 Novolog Vial Sliding Scale - SQ 16 units ACHS [facility] Administration Protocol Insulin Detemir 35 units 06/22/18 22:00 Levemir Vial SQ BID@0700,2200 [facility] Metoprolol Succinate 50 mg 06/19/18 22:00 06/21/18 21:43 Toprol Xl - PO 50 mg HS [facility] Administration Mupirocin 1 applic 06/20/18 10:00 06/22/18 11:04 Bactroban Ointment (For Decolonization) - NS 06/25/18 09:59 1 applic BID [facility] Administration Pantoprazole Sodium 40 mg 06/20/18 10:00 06/22/18 10:37 Protonix - PO 40 mg DAILY [facility] Administration Prednisone 40 mg 06/22/18 10:00 06/22/18 10:37 Deltasone - PO 40 mg DAILY [facility] Administration Microbiology 06/19/18 18:30 Blood - Peripheral Venous Blood Culture - Preliminary NO GROWTH OBTAINED AFTER 48 HOURS, INCUBATION TO CONTINUE FOR 3 DAYS. 06/19/18 18:30 Blood - Peripheral Venous Blood Culture - Preliminary NO GROWTH OBTAINED AFTER 48 HOURS, INCUBATION TO CONTINUE FOR 3 DAYS. ASSESSMENT/PLAN: 72 yom with PMhx of COPD, Steroid/oxygen (3L) dependent Pulmonary fibrosis/ILD , SHANTI on CPAP at night, Pulmonary HTN, CKD stage II, LV systolic dysfunction, prior admissions for CHF, CAD s/p [place], 2Stents , T2DM on Insulin, Hypercholesterolemia admitted with progressive exertional dyspnea and hypoxia. -Acute hypoxic respiratory failure -Suspected acute on chronic systolic heart failure exacerbation -Steroid oxygen dependent COPD/ILD +/- Flare -r/o PNA -New EKG changes with new LV WMA and worsening LV systolic function -IDDM with severe hyperglycemia in the setting of high dose steroids -TAZ on CKD stage II, suspect from CHF/worsening LV function with poor perfusion , now with ongoing osmotic diuresis from severe hyperglycemia -CAD s/p PCI -HLD Plan: Clinically Improved. OFF HFOT. 2D echo and EKG noted. Cardiology input noted. renal function overall unchanged. Resume diuresis lasix at 40 mg PO daily. Renal/bladder US noted. Follow up renal recs Change to po prednisone. Empiric ceftriaxone/azithromycin for now. Cultures neg so far. Patient known from prior admission, on high doses of insulin at home and significant high needs while on steroids. Increase levemir to 35 units BID and change ISS to start at 6 units for 50 above 150 DVTPPX heparin Dispo pending clinical improvement Agree with transfer to telemetry. Plan discussed with patient and nursing in detail, all questions answered. Total critical care time spent 36 min. Visit type - Emergency Visit Emergency Visit: Yes ED Registration Date: 06/19/18 Care time: The patient presented to the Emergency Department on the above date and was hospitalized for further evaluation of their emergent condition. - New Patient This patient is new to me today: No - Critical Care Critical Care patient: Yes Total Critical Care Time (in minutes): 36 Critical Care Statement: The care of this patient involved high complexity decision making to prevent further life threatening deterioration of the patient 's condition and/or to evaluate & treat vital organ system(s) failure or risk of failure.
--- NOTE | 2018-06-22 13:50 | PN ---
Progress Note (short form) - Note Progress Note: covering dr blount CKD TAZ on chronic s/p fluid overload Pmhx COPD, Steroid/oxygen (3L) dependent Pulmonary fibrosis/ILD, SHANTI on CPAP at night, Pulmonary HTN, CKD stage II, LV systolic dysfunction, prior admissions for CHF, CAD s/p [place], 2Stents , T2DM on Insulin, Hypercholesterolemia cc: progressive exertional dyspnea and hypoxia. Current Medications Albuterol Sulfate (Ventolin 0.083% Nebulizer Soln -) 1 amp NEB Q1H PRN PRN Reason: SHORT OF BREATH/WHEEZING Albuterol/Ipratropium (Duoneb -) 1 amp NEB RQID [facility] Last Admin: 06/22/18 11:07 Dose: 1 amp Allopurinol (Zyloprim -) 50 mg PO DAILY [facility] Last Admin: 06/22/18 10:36 Dose: 50 mg Aspirin (Ecotrin -) 81 mg PO DAILY [facility] Last Admin: 06/22/18 10:37 Dose: 81 mg Atorvastatin Calcium (Lipitor -) 20 mg PO HS [facility] Last Admin: 06/21/18 21:43 Dose: 20 mg Chlorhexidine Gluconate (Hibiclens For Decolonization -) 1 applic TP [facility] Last Admin: 06/21/18 22:47 Dose: 1 applic Cholecalciferol (Vitamin D3 -) 2,000 unit PO DAILY [facility] Last Admin: 06/22/18 10:38 Dose: 2,000 unit Ezetimibe (Zetia -) 10 mg PO DAILY [facility] Last Admin: 06/22/18 10:38 Dose: 10 mg Furosemide (Lasix -) 40 mg PO DAILY [facility] Last Admin: 06/22/18 10:37 Dose: 40 mg Heparin Sodium (Porcine) (Heparin -) 5,000 unit SQ TID [facility] Last Admin: 06/22/18 05:17 Dose: 5,000 unit Azithromycin (Zithromax 500mg Ivpb (Pre-Docked)) 500 mg in 250 mls @ 250 mls/ hr IVPB DAILY [facility] Last Admin: 06/22/18 10:38 Dose: 250 mls/hr Insulin Aspart (Novolog Vial Sliding Scale -) 1 vial SQ ACHS [facility]; Protocol Last Admin: 06/22/18 11:04 Dose: 16 units Insulin Detemir (Levemir Vial) 35 units SQ BID@0700,2200 [facility] Metoprolol Succinate (Toprol Xl -) 50 mg PO HS [facility] Last Admin: 06/21/18 21:43 Dose: 50 mg Mupirocin (Bactroban Ointment (For Decolonization) -) 1 applic NS BID [facility] Stop: 06/25/18 09:59 Last Admin: 06/22/18 11:04 Dose: 1 applic Pantoprazole Sodium (Protonix -) 40 mg PO DAILY [facility] Last Admin: 06/22/18 10:37 Dose: 40 mg Prednisone (Deltasone -) 40 mg PO DAILY [facility] Last Admin: 06/22/18 10:37 Dose: 40 mg Last Vital Signs Temp Pulse Resp BP Pulse Ox 98.1 F 91 H 22 H 120/82 99 06/22/18 06:00 06/22/18 09:22 06/22/18 09:22 06/22/18 09:22 06/22/18 09:22 alert in nad Lungs no rales Heart reg Abd soft nontender ext no edema CBC, BMP 06/22/18 05:30 06/22/18 05:30 06/20/18 06/21/18 06/21/18 05:30 05:30 06:30 WBC 15.3 H Hgb 13.9 Hct 42.7 Sodium 134 L 131 L Potassium 4.6 3.9 Chloride 95 L Carbon Dioxide 25 BUN 101 H 106 H* Creatinine 2.6 H 2.3 H Magnesium 2.3 2.5 H IMP taz - severe prerenal s/p fluid overload symptomatically doing well copd component seems controlled Plan - continue same rx
[2018-06-22] MEDS: ATORVASTATIN CA 20 MG TABLET (FP) PO SCH (21:40)
[2018-06-22] MEDS: CHLORHEXIDINE GLUCONATE 4% CLEANSER FOR DECOLONIZATION TP SCH (21:45)
[2018-06-22] MEDS ORDERED: INSULIN (LEVEMIR) 100 UNITS/ML UNITS SQ SCH ×2 (22:00→23:32)
[2018-06-22 23:19] LABS: ANION GAP 13 MMOL/L (8-16); CALCIUM 8.8 mg/dL (8.5-10.1); CHLORIDE 96 mmol/L (98-107); CO2 24 mmol/L (21-32); CREATININE 2.4 mg/dL (0.55-1.3); POTASSIUM 3.8 mmol/L (3.5-5.1); SODIUM 133 mmol/L (136-145)
[2018-06-22 23:26] LABS: BLOOD UREA NITROGEN 108 mg/dL (7-18); GLUCOSE,RANDOM 429 mg/dL (74-106)
[2018-06-23] MEDS: HEPARIN NA (PORCINE) 5,000 UNITS/ML 1ML VIAL SQ SCH ×3 (05:54→21:59)
[2018-06-23] MEDS: INSULIN SLIDING SCALE (NOVOLOG) 1 VIAL SQ SCH ×4 (06:13→22:01)
[2018-06-23 06:29] LABS: HEMATOCRIT 40.8 % (35.4-49); HEMOGLOBIN 13.6 GM/dL (11.7-16.9); MCH 29.3 pg (25.7-33.7); MCHC 33.4 g/dl (32.0-35.9); MEAN CELL VOLUME 87.8 fl (80-96); MEAN PLT VOLUME 8.7 fl (7.5-11.1); PLATELET COUNT 180 K/MM3 (134-434); RBC 4.64 M/mm3 (4.00-5.60); RDW 15.9 % (11.9-15.9); WHITE BLOOD COUNT 16.9 K/mm3 (4.0-10.0)
[2018-06-23 06:57] LABS: ALBUMIN 3.3 g/dl (3.4-5.0); ALK PHOS 53 U/L (45-117); ANION GAP 10 MMOL/L (8-16); BILIRUBIN,TOTAL 0.5 mg/dL (0.2-1); BLOOD UREA NITROGEN 99 mg/dL (7-18); CALCIUM 9.4 mg/dL (8.5-10.1); CHLORIDE 100 mmol/L (98-107); CO2 28 mmol/L (21-32); CREATININE 1.9 mg/dL (0.55-1.3); GLUCOSE,RANDOM 194 mg/dL (74-106); MAGNESIUM 2.5 mg/dL (1.8-2.4); PHOSPHOROUS 4.2 mg/dL (2.5-4.9); POTASSIUM 3.7 mmol/L (3.5-5.1); SGOT/AST 14 U/L (15-37); SGPT/ALT 22 U/L (13-61); SODIUM 138 mmol/L (136-145); TOT PROT 6.5 g/dl (6.4-8.2)
[2018-06-23] MEDS: ALBUTEROL SO4 2.5/IPRATROPIUM 0.5 INH SOL 3 ML VIAL.NEB. NEB SCH ×4 (07:30→20:20)
[2018-06-23] MEDS ORDERED: PT OWN MED DRAWER 7, Y5N ONE ×2 (08:36→10:23)
--- NOTE | 2018-06-23 09:08 | PN ---
Physical Exam: SUBJECTIVE: Patient seen and examined, breathing improved, no new complaints. OBJECTIVE: Vital Signs Period Temp Pulse Resp BP Sys/Meraz Pulse Ox Last 24 Hr 98.2 F-98.6 F 70-96 18-22 120-149/72-86 93-99 Intake & Output 06/20/18 06/21/18 06/22/18 06/23/18 23:59 23:59 23:59 23:59 Intake Total 1120 1565 1625 200 Output Total 1600 2750 1900 400 Balance -480 -1185 -275 -200 Weight 183 lb 4.8 oz 183 lb 174 lb 4.8 oz GENERAL: The patient is awake, alert, and fully oriented, in no acute distress. HEAD: Normal with no signs of trauma. EYES: PERRL, extraocular movements intact, sclera anicteric, conjunctiva clear. No ptosis. ENT: Ears normal, nares patent, oropharynx clear without exudates, moist mucous membranes. NECK: Trachea midline, full range of motion, supple. LUNGS: Breath sounds equal, clear to auscultation bilaterally, no wheezes, no crackles, no accessory muscle use. HEART: Regular rate and rhythm, S1, S2 without murmur, rub or gallop. ABDOMEN: Soft, nontender, nondistended, normoactive bowel sounds, no guarding, no rebound, no hepatosplenomegaly, no masses. EXTREMITIES: 2+ pulses, warm, well-perfused, no edema. NEUROLOGICAL: Cranial nerves II through XII grossly intact. Normal speech, gait not observed. PSYCH: Normal mood, normal affect. SKIN: Warm, dry, normal turgor, no rashes or lesions noted Laboratory Results - last 24 hr 06/21/18 06/22/18 06/22/18 22:28 11:02 16:47 WBC RBC Hgb Hct MCV MCH MCHC RDW Plt Count MPV Sodium Potassium Chloride Carbon Dioxide Anion Gap BUN Creatinine Creat Clearance w eGFR POC Glucometer 488 495 380 Random Glucose Calcium Phosphorus Magnesium Total Bilirubin AST ALT Alkaline Phosphatase Total Protein Albumin 06/22/18 06/22/18 06/23/18 21:57 22:18 05:30 WBC 16.9 H RBC 4.64 Hgb 13.6 Hct 40.8 MCV 87.8 MCH 29.3 MCHC 33.4 RDW 15.9 Plt Count 180 MPV 8.7 Sodium 133 L Potassium 3.8 Chloride 96 L Carbon Dioxide 24 Anion Gap 13 BUN 108 H* Creatinine 2.4 H Creat Clearance w eGFR 26.90 POC Glucometer 436 Random Glucose 429 H* Calcium 8.8 Phosphorus Magnesium Total Bilirubin AST ALT Alkaline Phosphatase Total Protein Albumin 06/23/18 06/23/18 05:30 06:07 WBC RBC Hgb Hct MCV MCH MCHC RDW Plt Count MPV Sodium 138 Potassium 3.7 Chloride 100 Carbon Dioxide 28 Anion Gap 10 BUN 99 H Creatinine 1.9 H Creat Clearance w eGFR 35.22 POC Glucometer 185 Random Glucose 194 H Calcium 9.4 Phosphorus 4.2 Magnesium 2.5 H Total Bilirubin 0.5 AST 14 L ALT 22 Alkaline Phosphatase 53 Total Protein 6.5 Albumin 3.3 L Active Medications Generic Name Dose Route Start Last Admin Trade Name Freq PRN Reason Stop Dose Admin Albuterol Sulfate 1 amp 06/19/18 20:45 Ventolin 0.083% Nebulizer Soln - NEB Q1H PRN SHORT OF BREATH/WHEEZING Albuterol/Ipratropium 1 amp 06/20/18 08:00 06/23/18 07:30 Duoneb - NEB 1 amp RQID [facility] Administration Allopurinol 50 mg 06/20/18 10:00 06/22/18 10:36 Zyloprim - PO 50 mg DAILY [facility] Administration Aspirin 81 mg 06/20/18 10:00 06/22/18 10:37 Ecotrin - PO 81 mg DAILY [facility] Administration Atorvastatin Calcium 20 mg 06/20/18 22:00 06/22/18 21:40 Lipitor - PO 20 mg HS [facility] Administration Chlorhexidine Gluconate 1 applic 06/20/18 22:00 06/22/18 21:45 Hibiclens For Decolonization - TP 1 applic HS [facility] Administration Cholecalciferol 2,000 unit 06/20/18 10:00 06/22/18 10:38 Vitamin D3 - PO 2,000 unit DAILY [facility] Administration Ezetimibe 10 mg 06/20/18 10:00 06/22/18 10:38 Zetia - PO 10 mg DAILY [facility] Administration Furosemide 40 mg 06/22/18 10:00 06/22/18 10:37 Lasix - PO 40 mg DAILY [facility] Administration Heparin Sodium (Porcine) 5,000 unit 06/20/18 06:00 06/23/18 05:54 Heparin - SQ 5,000 unit TID [facility] Administration Azithromycin 500 mg in 250 mls @ 250 mls/hr 06/20/18 10:00 06/22/18 10:38 Zithromax 500mg Ivpb (Pre-Docked) IVPB 250 mls/hr DAILY [facility] Administration Insulin Aspart 1 vial 06/22/18 11:00 06/23/18 06:13 Novolog Vial Sliding Scale - SQ 6 units ACHS [facility] Administration Protocol Insulin Detemir 40 units 06/22/18 23:32 06/23/18 06:13 Levemir Vial SQ 40 units BID@0700,2200 [facility] Administration Metoprolol Succinate 50 mg 06/19/18 22:00 06/22/18 21:40 Toprol Xl - PO 50 mg HS [facility] Administration Mupirocin 1 applic 06/20/18 10:00 06/22/18 21:39 Bactroban Ointment (For Decolonization) - NS 06/25/18 09:59 1 applic BID [facility] Administration Pantoprazole Sodium 40 mg 06/20/18 10:00 06/22/18 10:37 Protonix - PO 40 mg DAILY [facility] Administration Prednisone 40 mg 06/22/18 10:00 06/22/18 10:37 Deltasone - PO 40 mg DAILY [facility] Administration ASSESSMENT/PLAN: 72 yom with PMhx of COPD, Steroid/oxygen (3L) dependent Pulmonary fibrosis/ILD , SHANTI on CPAP at night, Pulmonary HTN, CKD stage II, LV systolic dysfunction, prior admissions for CHF, CAD s/p MD, 2Stents , T2DM on Insulin, Hypercholesterolemia admitted with progressive exertional dyspnea and hypoxia. -Acute hypoxic respiratory failure -Suspected acute on chronic systolic heart failure exacerbation -Steroid oxygen dependent COPD/ILD +/- Flare -r/o PNA -New EKG changes with new LV WMA and worsening LV systolic function -IDDM with severe hyperglycemia in the setting of high dose steroids -TAZ on CKD stage II, suspect from CHF/worsening LV function with poor perfusion , now with ongoing osmotic diuresis from severe hyperglycemia -CAD s/p PCI -HLD Plan: Clinically Improved. OFF HFOT. 2D echo and EKG noted. Cardiology input noted. renal function improved. Continue lasix 40 mg daily. Renal/bladder US noted, renal input noted. PO prednisone. s/p 3 days of azithromycin, off ceftriaxone. D/c abx and monitor. Patient known from prior admission, on high doses of insulin at home and significant high needs while on steroids. Levemir noted increased. Monitor as steroids tapered, Transition to home regimen on dc with follow up with Dr. Aranda. DVTPPX heparin Dispo pending clinical improvement Agree with transfer out of ICU. PT eval. Dispo d/c in 24 hours, likely home with services if continues to improve. Plan discussed with patient and nursing in detail, all questions answered. Total critical care time spent 36 min. Visit type - Emergency Visit Emergency Visit: Yes ED Registration Date: 06/19/18 Care time: The patient presented to the Emergency Department on the above date and was hospitalized for further evaluation of their emergent condition. - New Patient This patient is new to me today: No - Critical Care Critical Care patient: Yes Total Critical Care Time (in minutes): 36 Critical Care Statement: The care of this patient involved high complexity decision making to prevent further life threatening deterioration of the patient 's condition and/or to evaluate & treat vital organ system(s) failure or risk of failure.
--- NOTE | 2018-06-23 09:51 | CONS ---
DATE OF CONSULTATION: 06/22/2018 Patient has been off of high-flow oxygen, but continues to have hypoxia with minimal activity. He has no shortness of breath and remains on continuous oxygen. There is no history of chest pain or discomfort either at rest or with exertion, remains in sinus rhythm, and hemodynamics are stable. Patient has no further cough. MEDICATIONS: 1. Prednisone 40 mg p.o. daily. 2. Zithromax 500 mg IV piggy back. 3. Bactroban ointment. 4. Heparin 5000 units subcutaneous t.i.d. 5. Allopurinol 50 mg p.o. daily. 6. Ventolin via nebulizer 1 ampule q.1 h p.r.n. 7. DuoNeb 1 ampule via nebulizer q.i.d. 8. Metoprolol succinate 50 mg p.o. nightly. 9. Zetia 10 mg p.o. daily. 10. Atorvastatin 20 mg p.o. nightly. 11. Insulin Levemir 35 units subcutaneous b.i.d. 12. Furosemide 40 mg p.o. daily. 13. Aspirin 81 mg p.o. daily. 14. Chlorhexidine gluconate 1 application nightly. 15. Pantoprazole 40 mg p.o. daily. 16. Vitamin D3 2000 units p.o. daily. PHYSICAL EXAMINATION: General: A 72-year-old gentleman was lying comfortably in bed, was in no acute distress, no pallor, cyanosis. No clubbing or jaundice was noted. Vital Signs: Blood pressure 131/72 mmHg at 1900 hours, pulse 92 beats per minute and regular, respirations were 20 per minute, oxygen saturation at 9:22 a.m. was 99% on 3 L of oxygen. Neck: Supple. No jugular venous distension. Carotids were 2+. Upstrokes were normal. No bruits were heard. There is no thyromegaly. Heart: PMI was not localized. No heaves or thrills. Heart sounds were distant. No murmur, gallops, or rubs were heard. Lungs: Fine crepitation at the right base that decreased with coughing. No other extraneous sounds were heard. Abdomen: Obese, soft and nontender. No hepatosplenomegaly or palpable masses were felt. Extremities: No calf tenderness or dependent edema. Pulses were equal. Pretibial pulses could not be palpated. LABORATORY DATA: CBC on June 22, 2018: WBC count 16,800, hemoglobin 13.9 g/dL, platelet count 181,000, neutrophils were 92.9%, lymphocytes were 3.9%, monocytes were 3.1%, eosinophils were 0%. Sodium 136, potassium 3.7, chloride 99, CO2 24 millimoles/L, BUN 110, creatinine 2.4 mg/dL. Random glucose was 380 mg/dL at 16:47. Calcium is 9 mg/dL. Phosphorous was elevated at 5.9 mg. Magnesium was 2.8 mg. Troponin on June 20, 2017, was less than 0.02. ECG was not available. IMPRESSION: 1. Chronic interstitial lung disease with acute exacerbation. 2. Congestive heart failure, resolving. 3. Hypertension, hypertensive cardiovascular disease. 4. Coronary artery disease, status post myocardial infarction, status post stenting, stable angina pectoris. 5. Insulin-dependent diabetes mellitus. 6. Diabetic nephropathy. 7. Otjxa-jr-mpjswrh kidney injury. 8. Diabetic neuropathy. 9. History of obstructive sleep apnea. 10. History of gout, currently in remission. 11. Dyslipidemia. 12. Status post paroxysmal atrial fibrillation. 13. Pulmonary hypertension. 14. Exogenous obesity. 15. Poor compliance. RECOMMENDATIONS: 1. Daily weight. 2. Continue current cardiac medications. 3. Follow up ECG. 4. Follow up x-ray of chest. PROGNOSIS: Guarded. Slime [id number]
[2018-06-23] MEDS: MUPIROCIN 2% TOPICAL OINTMENT FOR DECOLONIZATION NS SCH (10:16)
[2018-06-23] MEDS: PANTOPRAZOLE 40 MG TABLET (FP) PO SCH (10:17)
[2018-06-23] MEDS: ASPIRIN COATED 81 MG TABLET.EC PO SCH (10:17)
[2018-06-23] MEDS: CHOLECALCIFEROL (VITAMIN D3) 1,000 UNIT TABLET (FP) PO SCH (10:17)
[2018-06-23] MEDS: FUROSEMIDE 40 MG TABLET (FP) PO SCH (10:17)
[2018-06-23] MEDS: ALLOPURINOL 100 MG TABLET (FP) PO SCH (10:17)
[2018-06-23] MEDS: predniSONE 20 MG TABLET (UD) PO SCH (10:17)
[2018-06-23] MEDS: EZETIMIBE 10 MG TABLET (FP) PO SCH (10:24)
--- NOTE | 2018-06-23 12:16 | PN ---
Teaching Attending Note Name of Resident: Darren Head ATTENDING PHYSICIAN STATEMENT I saw and evaluated the patient. I reviewed the resident's note and discussed the case with the resident. I agree with the resident's findings and plan as documented. SUBJECTIVE: Pt seen and examined in the ICU. States breathing improving. On/off nasal cannula but desaturates when speaking. No fevers recorded. OBJECTIVE: Vital Signs Period Temp Pulse Resp BP Sys/Meraz Pulse Ox Last 24 Hr 98.2 F-98.6 F 70-99 18-22 129-149/72-85 90-99 Intake & Output 06/20/18 06/21/18 06/22/18 06/23/18 23:59 23:59 23:59 23:59 Intake Total 1120 1565 1625 200 Output Total 1600 2750 1900 400 Balance -480 -1185 -275 -200 Weight 83.143 kg 83.007 kg 79.061 kg Gen: mildly tachypneic with speaking Heart: RRR Lung: bibasilar fine rales Abd: soft, nontender Ext: distal edema CBC, BMP 06/23/18 05:30 06/23/18 05:30 Active Medications Albuterol Sulfate (Ventolin 0.083% Nebulizer Soln -) 1 amp NEB Q1H PRN PRN Reason: SHORT OF BREATH/WHEEZING Albuterol/Ipratropium (Duoneb -) 1 amp NEB RQID [facility] Last Admin: 06/23/18 11:31 Dose: 1 amp Allopurinol (Zyloprim -) 50 mg PO DAILY [facility] Last Admin: 06/23/18 10:17 Dose: 50 mg Aspirin (Ecotrin -) 81 mg PO DAILY [facility] Last Admin: 06/23/18 10:17 Dose: 81 mg Atorvastatin Calcium (Lipitor -) 20 mg PO HS [facility] Last Admin: 06/22/18 21:40 Dose: 20 mg Chlorhexidine Gluconate (Hibiclens For Decolonization -) 1 applic TP HS [facility] Last Admin: 06/22/18 21:45 Dose: 1 applic Cholecalciferol (Vitamin D3 -) 2,000 unit PO DAILY [facility] Last Admin: 06/23/18 10:17 Dose: 2,000 unit Ezetimibe (Zetia -) 10 mg PO DAILY [facility] Last Admin: 06/23/18 10:24 Dose: 10 mg Furosemide (Lasix -) 40 mg PO DAILY [facility] Last Admin: 06/23/18 10:17 Dose: 40 mg Heparin Sodium (Porcine) (Heparin -) 5,000 unit SQ TID [facility] Last Admin: 06/23/18 05:54 Dose: 5,000 unit Insulin Aspart (Novolog Vial Sliding Scale -) 1 vial SQ ACHS [facility]; Protocol Last Admin: 06/23/18 10:57 Dose: Not Given Insulin Detemir (Levemir Vial) 40 units SQ BID@0700,2200 [facility] Last Admin: 06/23/18 06:13 Dose: 40 units Metoprolol Succinate (Toprol Xl -) 50 mg PO HS [facility] Last Admin: 06/22/18 21:40 Dose: 50 mg Mupirocin (Bactroban Ointment (For Decolonization) -) 1 applic NS BID [facility] Stop: 06/25/18 09:59 Last Admin: 06/23/18 10:16 Dose: 1 applic Pantoprazole Sodium (Protonix -) 40 mg PO DAILY [facility] Last Admin: 06/23/18 10:17 Dose: 40 mg Prednisone (Deltasone -) 40 mg PO DAILY [facility] Last Admin: 06/23/18 10:17 Dose: 40 mg ASSESSMENT AND PLAN: Acute on Chronic Hypoxic Respiratory Failure Acute Exacerbation Interstitial Lung Disease Acute on Chronic Systolic Heart Failure Pulmonary HTN CAD DM CKD Hypercholesterolemia Obstructive Sleep Apnea - prednisone taper - inhaled bronchodilators - O2 to keep SpO2 >90% - CPAP at night - continue lasix - monitor urine output, creatinine - glucose control while on systemic steroids - DVT prophylaxis - can monitor on floor
--- NOTE | 2018-06-23 15:44 | PN ---
Progress Note, Physician History of Present Illness: Pt seen and examined at bedside. He is awake and alert. He feels that his breathing is improved. He denies chest pain. - Current Medication List Current Medications: Active Medications Albuterol Sulfate (Ventolin 0.083% Nebulizer Soln -) 1 amp NEB Q1H PRN PRN Reason: SHORT OF BREATH/WHEEZING Albuterol/Ipratropium (Duoneb -) 1 amp NEB RQID [facility] Last Admin: 06/23/18 11:31 Dose: 1 amp Allopurinol (Zyloprim -) 50 mg PO DAILY [facility] Last Admin: 06/23/18 10:17 Dose: 50 mg Aspirin (Ecotrin -) 81 mg PO DAILY [facility] Last Admin: 06/23/18 10:17 Dose: 81 mg Atorvastatin Calcium (Lipitor -) 20 mg PO HS [facility] Last Admin: 06/22/18 21:40 Dose: 20 mg Chlorhexidine Gluconate (Hibiclens For Decolonization -) 1 applic TP [facility] Last Admin: 06/22/18 21:45 Dose: 1 applic Cholecalciferol (Vitamin D3 -) 2,000 unit PO DAILY [facility] Last Admin: 06/23/18 10:17 Dose: 2,000 unit Ezetimibe (Zetia -) 10 mg PO DAILY [facility] Last Admin: 06/23/18 10:24 Dose: 10 mg Furosemide (Lasix -) 40 mg PO DAILY [facility] Last Admin: 06/23/18 10:17 Dose: 40 mg Heparin Sodium (Porcine) (Heparin -) 5,000 unit SQ TID [facility] Last Admin: 06/23/18 14:19 Dose: 5,000 unit Insulin Aspart (Novolog Vial Sliding Scale -) 1 vial SQ ACHS [facility]; Protocol Last Admin: 06/23/18 10:57 Dose: Not Given Insulin Detemir (Levemir Vial) 40 units SQ BID@0700,2200 [facility] Last Admin: 06/23/18 06:13 Dose: 40 units Metoprolol Succinate (Toprol Xl -) 50 mg PO HS [facility] Last Admin: 06/22/18 21:40 Dose: 50 mg Mupirocin (Bactroban Ointment (For Decolonization) -) 1 applic NS BID [facility] Stop: 06/25/18 09:59 Last Admin: 06/23/18 10:16 Dose: 1 applic Pantoprazole Sodium (Protonix -) 40 mg PO DAILY [facility] Last Admin: 06/23/18 10:17 Dose: 40 mg Prednisone (Deltasone -) 40 mg PO DAILY [facility] Last Admin: 06/23/18 10:17 Dose: 40 mg - Objective Vital Signs: Vital Signs Temperature 97.5 F L 06/23/18 15:21 Pulse Rate 84 06/23/18 15:21 Respiratory Rate 18 06/23/18 15:21 Blood Pressure 125/70 06/23/18 15:21 O2 Sat by Pulse Oximetry (%) 90 L 06/23/18 10:30 Constitutional: Yes: Calm Eyes: Yes: Conjunctiva Clear HENT: Yes: Atraumatic Neck: Yes: Supple Cardiovascular: Yes: S1, S2 Respiratory: Yes: On Nasal O2, Wheezes Gastrointestinal: Yes: Soft Genitourinary: Yes: WNL Musculoskeletal: Yes: WNL Edema: No Neurological: Yes: Oriented Psychiatric: Yes: Oriented Labs: CBC, BMP 06/23/18 05:30 06/23/18 05:30 INR, PTT INR 1.06 (0.83-1.09) 06/20/18 05:30 Assessment/Plan Current Medications Generic Name Dose Route Start Last Admin Trade Name Freq PRN Reason Stop Dose Admin Albuterol Sulfate 1 amp 06/19/18 20:45 Ventolin 0.083% Nebulizer Soln - NEB Q1H PRN SHORT OF BREATH/WHEEZING Albuterol/Ipratropium 1 amp 06/20/18 08:00 06/23/18 11:31 Duoneb - NEB 1 amp RQID [facility] Administration Allopurinol 50 mg 06/20/18 10:00 06/23/18 10:17 Zyloprim - PO 50 mg DAILY [facility] Administration Aspirin 81 mg 06/20/18 10:00 06/23/18 10:17 Ecotrin - PO 81 mg DAILY [facility] Administration Atorvastatin Calcium 20 mg 06/20/18 22:00 06/22/18 21:40 Lipitor - PO 20 mg HS [facility] Administration Chlorhexidine Gluconate 1 applic 06/20/18 22:00 06/22/18 21:45 Hibiclens For Decolonization - TP 1 applic HS [facility] Administration Cholecalciferol 2,000 unit 06/20/18 10:00 06/23/18 10:17 Vitamin D3 - PO 2,000 unit DAILY [facility] Administration Ezetimibe 10 mg 06/20/18 10:00 06/23/18 10:24 Zetia - PO 10 mg DAILY [facility] Administration Furosemide 40 mg 06/22/18 10:00 06/23/18 10:17 Lasix - PO 40 mg DAILY [facility] Administration Heparin Sodium (Porcine) 5,000 unit 06/20/18 06:00 06/23/18 14:19 Heparin - SQ 5,000 unit TID [facility] Administration Insulin Aspart 1 vial 06/22/18 11:00 06/23/18 10:57 Novolog Vial Sliding Scale - SQ Not Given ACHS [facility] Protocol Insulin Detemir 40 units 06/22/18 23:32 06/23/18 06:13 Levemir Vial SQ 40 units BID@0700,2200 [facility] Administration Metoprolol Succinate 50 mg 06/19/18 22:00 06/22/18 21:40 Toprol Xl - PO 50 mg HS [facility] Administration Mupirocin 1 applic 06/20/18 10:00 06/23/18 10:16 Bactroban Ointment (For Decolonization) - NS 06/25/18 09:59 1 applic BID [facility] Administration Pantoprazole Sodium 40 mg 06/20/18 10:00 06/23/18 10:17 Protonix - PO 40 mg DAILY [facility] Administration Prednisone 40 mg 06/22/18 10:00 06/23/18 10:17 Deltasone - PO 40 mg DAILY [facility] Administration Impression 1. TAZ 2. CKD 3. Pulmonary fibrosis on Home oxygen 4. SHANTI on CPAP at night 5. Pulmonary HTN 6. CAD s/p MT, 2Stents 7. DM 8. Chol 9. copd 10. CHF Plan - renal function is improving - bun elevated likely from steroids, cont to monitor - cont with po lasix - steroids with taper as tolerated - repeat labs in am - will follow - hold arb in the setting of TAZ - discussed with ICU Dr Pool
[2018-06-23] MEDS ORDERED: ALBUTEROL SO4 0.083% IH SOL 2.5 MG/3 ML VIAL.NEB. NEB PRN (16:09)
--- NOTE | 2018-06-23 18:04 | PN ---
Physical Exam: SUBJECTIVE: Patient seen and examined HD# 3 ICU Day 3 Overnight Events: No acute events reported overnight. Pt states his breathing has improved. Denies chest pain or dizziness/weakness. Was out of bed and ambulate through the department yesterday. OBJECTIVE: Vital Signs Period Temp Pulse Resp BP Sys/Meraz Pulse Ox Last 24 Hr 97.5 F-98.6 F 70-99 18-22 108-149/65-91 90-99 Lines: - PIV Drains: - None Supplemental Oxygen: - Nasal Cannula at 3.5 LPM Physical Exams: GENERAL: awake, alert, and fully oriented, in no acute distress. Sitting in chair. HEAD: Normal with no signs of trauma. LUNGS: Nasal cannula in place. Breath sounds present bilaterally. Diffuse minimally coarse breath sounds without wheezing or stridor. HEART: Regular rate and rhythm, S1, S2 without murmur, rub or gallop. ABDOMEN: Soft, nontender, and nondistended. EXTREMITIES: 2+ pulses, warm, well-perfused, 1+ pretibial edema bilaterally. PSYCH: Normal mood, normal affect. SKIN: Warm and dry. Drips: - None Anti Infectives: - Vancomycin, one time dose on 06/19 - Zosyn, one time dose on 06/19 - Ceftriaxone, one time dose on 06/20 - Azithromycin (started 06/20 - 06/23) Laboratory Results - last 24 hr 06/21/18 06/22/18 06/22/18 22:28 21:57 22:18 WBC RBC Hgb Hct MCV MCH MCHC RDW Plt Count MPV Sodium 133 L Potassium 3.8 Chloride 96 L Carbon Dioxide 24 Anion Gap 13 BUN 108 H* Creatinine 2.4 H Creat Clearance w eGFR 26.90 POC Glucometer 488 436 Random Glucose 429 H* Calcium 8.8 Phosphorus Magnesium Total Bilirubin AST ALT Alkaline Phosphatase Total Protein Albumin 06/23/18 06/23/18 06/23/18 05:30 05:30 06:07 WBC 16.9 H RBC 4.64 Hgb 13.6 Hct 40.8 MCV 87.8 MCH 29.3 MCHC 33.4 RDW 15.9 Plt Count 180 MPV 8.7 Sodium 138 Potassium 3.7 Chloride 100 Carbon Dioxide 28 Anion Gap 10 BUN 99 H Creatinine 1.9 H Creat Clearance w eGFR 35.22 POC Glucometer 185 Random Glucose 194 H Calcium 9.4 Phosphorus 4.2 Magnesium 2.5 H Total Bilirubin 0.5 AST 14 L ALT 22 Alkaline Phosphatase 53 Total Protein 6.5 Albumin 3.3 L 06/23/18 06/23/18 10:50 16:47 WBC RBC Hgb Hct MCV MCH MCHC RDW Plt Count MPV Sodium Potassium Chloride Carbon Dioxide Anion Gap BUN Creatinine Creat Clearance w eGFR POC Glucometer 98 247 Random Glucose Calcium Phosphorus Magnesium Total Bilirubin AST ALT Alkaline Phosphatase Total Protein Albumin Active Medications Generic Name Dose Route Start Last Admin Trade Name Freq PRN Reason Stop Dose Admin Albuterol Sulfate 1 amp 06/23/18 16:09 Ventolin 0.083% Nebulizer Soln - NEB Q1H PRN SHORT OF BREATH/WHEEZING Albuterol/Ipratropium 1 amp 06/23/18 20:00 06/23/18 15:45 Duoneb - NEB 1 amp RQID [facility] Administration Allopurinol 50 mg 06/24/18 10:00 Zyloprim - PO DAILY [facility] Aspirin 81 mg 06/24/18 10:00 Ecotrin - PO DAILY [facility] Atorvastatin Calcium 20 mg 06/23/18 22:00 Lipitor - PO HS [facility] Cholecalciferol 2,000 unit 06/24/18 10:00 Vitamin D3 - PO DAILY [facility] Ezetimibe 10 mg 06/24/18 10:00 Zetia - PO DAILY [facility] Furosemide 40 mg 06/24/18 10:00 Lasix - PO DAILY [facility] Heparin Sodium (Porcine) 5,000 unit 06/23/18 22:00 Heparin - SQ TID [facility] Insulin Aspart 1 vial 06/23/18 16:30 06/23/18 16:48 Novolog Vial Sliding Scale - SQ 8 unit ACHS [facility] Administration Protocol Insulin Detemir 40 units 06/23/18 22:00 Levemir Vial SQ BID@0700,2200 [facility] Metoprolol Succinate 50 mg 06/23/18 22:00 Toprol Xl - PO HS [facility] Pantoprazole Sodium 40 mg 06/24/18 10:00 Protonix - PO DAILY [facility] Prednisone 40 mg 06/24/18 10:00 Deltasone - PO DAILY [facility] ASSESSMENT/PLAN: 72 year old male with a history of CAD (s/p stent x3), HTN, HLD, CKD, Gout, DM ( insulin dependent), systolic CHF, ILD on home Oxygen and chronic steroids. Presented with shortness of breath, acute hypoxia, and increased supplemental oxygen requirements. Admitted to ICU for high flow oxygen and respiratory monitoring given comorbidities. Neuro (& Psych): - A/Ox4. No sedating gtts. - h/o of anxiety. Endocrine: - Consult Dr. Pool - DM. Levemir for long acting and Novolog on sliding scale. - Gout. Continue home Allopurinol. - CKD. Cr above recent baseline documented in [employer]. Will continue to monitor. Cardiovascular: - Consult Dr. Calle - CAD s/p stent x3. Continue ASA. - HTN. Continue Metoprolol - HLD. Continue Zetia and Atorvastatin. Pulm / Resp: - Acute SOB and hypoxia. CT scan revealed no significant changes when compared to previous from earlier in the year. Small effusion noted. Low suspicion for pneumonia. More likely progression of ILD disease versus COPD exacerbation as pt s steroids are tapering, he endorses more stagnant lifestyle, was diagnosed with influenza in February 2018, and poor compliance with home oxygen therapy. - ILD and COPD on home oxygen and chronic steroids. Oxygen therapy weaned to nasal cannula, which is at baseline. Continue prednisone. Albuterol and Duonebs for bronchodilation. Infectious Disease: - Azithromycin completed today. FEN: - Low sodium, diabetic diet Prophylaxis: - DVT: Heparin - GI: Protonix Dispo: Pt stable to de-escalate care to med/surg with spot SPO2 monitoring. Darren Head MD, PGY1 ICU Consult Service Visit type - Emergency Visit Emergency Visit: No - New Patient This patient is new to me today: No - Critical Care Critical Care patient: Yes Total Critical Care Time (in minutes): 39 Critical Care Statement: The care of this patient involved high complexity decision making to prevent further life threatening deterioration of the patient 's condition and/or to evaluate & treat vital organ system(s) failure or risk of failure.
--- NOTE | 2018-06-23 18:07 | PN ---
Progress Note (short form) - Note Progress Note: Patient was out of bed and in a chair, on continuous oxygen. He has no shortness of breath. There is no history of chest pain or discomfort either at rest or with exertion, remains in sinus rhythm, and hemodynamics are stable. Active Medications Albuterol Sulfate (Ventolin 0.083% Nebulizer Soln -) 1 amp NEB Q1H PRN PRN Reason: SHORT OF BREATH/WHEEZING Albuterol/Ipratropium (Duoneb -) 1 amp NEB RQID [facility] Last Admin: 06/23/18 15:45 Dose: 1 amp Allopurinol (Zyloprim -) 50 mg PO DAILY [facility] Aspirin (Ecotrin -) 81 mg PO DAILY [facility] Atorvastatin Calcium (Lipitor -) 20 mg PO HS [facility] Cholecalciferol (Vitamin D3 -) 2,000 unit PO DAILY [facility] Ezetimibe (Zetia -) 10 mg PO DAILY [facility] Furosemide (Lasix -) 40 mg PO DAILY [facility] Heparin Sodium (Porcine) (Heparin -) 5,000 unit SQ TID [facility] Insulin Aspart (Novolog Vial Sliding Scale -) 1 vial SQ ACHS [facility]; Protocol Last Admin: 06/23/18 16:48 Dose: 8 unit Insulin Detemir (Levemir Vial) 40 units SQ BID@0700,2200 [facility] Metoprolol Succinate (Toprol Xl -) 50 mg PO HS [facility] Pantoprazole Sodium (Protonix -) 40 mg PO DAILY [facility] Prednisone (Deltasone -) 40 mg PO DAILY [facility] Last Vital Signs Temp Pulse Resp BP Pulse Ox 97.8 F 86 22 H 116/74 90 L 06/23/18 16:47 06/23/18 16:47 06/23/18 16:47 06/23/18 16:47 06/23/18 10:30 PHYSICAL EXAMINATION: General: A 72-year-old gentleman was lying comfortably in bed, was in no acute distress, no pallor, cyanosis. No clubbing or jaundice was noted. Neck: Supple. No jugular venous distension. Carotids were 2+. Upstrokes were normal. No bruits were heard. There is no thyromegaly. Heart: PMI was not localized. No heaves or thrills. Heart sounds were distant. No murmur, gallops, or rubs were heard. Lungs: Fine crepitation at the right base that decreased with coughing. No other extraneous sounds were heard. Abdomen: Obese, soft and nontender. No hepatosplenomegaly or palpable masses were felt. Extremities: No calf tenderness or dependent edema. Pulses were equal. Pretibial pulses could not be palpated. CBC, BMP 06/23/18 05:30 06/23/18 05:30 IMPRESSION: 1. Chronic interstitial lung disease with acute exacerbation. 2. Congestive heart failure, resolving. 3. Coronary artery disease, status post myocardial infarction, status post stenting, stable angina pectoris. 4. Hypertension, hypertensive cardiovascular disease. 5. Insulin-dependent diabetes mellitus. 6. Diabetic nephropathy. 7. Ojidk-yi-uztebox kidney injury. 8. Diabetic neuropathy. 9. History of obstructive sleep apnea. 10. History of gout, currently in remission. 11. Dyslipidemia. 12. Status post paroxysmal atrial fibrillation. 13. Pulmonary hypertension. 14. Exogenous obesity. 15. Poor compliance. RECOMMENDATIONS: 1. Continue current cardiac medications. 2. Daily weight. 3. Follow up ECG. PROGNOSIS: Guarded.
[2018-06-23] MEDS ORDERED: CHLORHEXIDINE GLUCONATE 4% CLEANSER FOR DECOLONIZATION TP SCH (22:00)
[2018-06-23] MEDS ORDERED: MUPIROCIN 2% TOPICAL OINTMENT FOR DECOLONIZATION NS SCH (22:00)
[2018-06-23] MEDS ORDERED: ATORVASTATIN CA 20 MG TABLET (FP) PO SCH (22:00)
[2018-06-23] MEDS: INSULIN (LEVEMIR) 100 UNITS/ML UNITS SQ SCH (22:00)
[2018-06-24 02:04] VITALS: TEMP 97.4
[2018-06-24 05:49] LABS: BASO % 0.2 % (0-2.0); EOS % 0.3 % (0-4.5); HEMATOCRIT 42.8 % (35.4-49); HEMOGLOBIN 14.1 GM/dL (11.7-16.9); LYMPH % 11.6 % (8-40); MCH 28.8 pg (25.7-33.7); MEAN CELL VOLUME 87.4 fl (80-96); MEAN PLT VOLUME 8.4 fl (7.5-11.1); MONO % 10.5 % (3.8-10.2); NEUT % 77.4 % (42.8-82.8); PLATELET COUNT 195 K/MM3 (134-434); RDW 15.5 % (11.9-15.9); WHITE BLOOD COUNT 14.4 K/mm3 (4.0-10.0)
[2018-06-24 06:10] LABS: ANION GAP 9 MMOL/L (8-16); BLOOD UREA NITROGEN 82 mg/dL (7-18); CALCIUM 9.3 mg/dL (8.5-10.1); CHLORIDE 103 mmol/L (98-107); CO2 28 mmol/L (21-32); CREATININE 1.5 mg/dL (0.55-1.3); GLUCOSE,RANDOM 52 mg/dL (74-106); MAGNESIUM 2.3 mg/dL (1.8-2.4); PHOSPHOROUS 4.1 mg/dL (2.5-4.9); POTASSIUM 3.4 mmol/L (3.5-5.1); SODIUM 140 mmol/L (136-145)
[2018-06-24] MEDS: INSULIN (LEVEMIR) 100 UNITS/ML UNITS SQ SCH (06:21)
[2018-06-24] MEDS: INSULIN SLIDING SCALE (NOVOLOG) 1 VIAL SQ SCH ×2 (06:21→11:22)
[2018-06-24] MEDS: HEPARIN NA (PORCINE) 5,000 UNITS/ML 1ML VIAL SQ SCH (06:22)
[2018-06-24] MEDS: ALBUTEROL SO4 2.5/IPRATROPIUM 0.5 INH SOL 3 ML VIAL.NEB. NEB SCH ×2 (07:54→11:27)
[2018-06-24] MEDS ORDERED: PT OWN MED DRAWER 7, Y5N ONE (08:56)
[2018-06-24 09:22] VITALS: BP 145/89; PULSE 82
[2018-06-24] MEDS ORDERED: predniSONE 20 MG TABLET (UD) PO SCH (10:00)
[2018-06-24] MEDS ORDERED: FUROSEMIDE 40 MG TABLET (FP) PO SCH (10:00)
[2018-06-24] MEDS ORDERED: POTASSIUM CHLORIDE TABS 20 MEQ TABLET.ER (FP) PO ONE (10:00)
[2018-06-24] MEDS ORDERED: CHOLECALCIFEROL (VITAMIN D3) 1,000 UNIT TABLET (FP) PO SCH (10:00)
[2018-06-24] MEDS ORDERED: PANTOPRAZOLE 40 MG TABLET (FP) PO SCH (10:00)
[2018-06-24] MEDS ORDERED: ASPIRIN COATED 81 MG TABLET.EC PO SCH (10:00)
[2018-06-24] MEDS ORDERED: ALLOPURINOL 100 MG TABLET (FP) PO SCH (10:00)
[2018-06-24] MEDS ORDERED: EZETIMIBE 10 MG TABLET (FP) PO SCH (10:00)
--- NOTE | 2018-06-24 10:31 | DS ---
Physical Exam: SUBJECTIVE: Patient seen and examined, feels good, no complaints, walking with PT. OBJECTIVE: Vital Signs Period Temp Pulse Resp BP Sys/Meraz Pulse Ox Last 24 Hr 97.4 F-97.9 F 71-94 18-22 108-145/57-91 96-99 Intake & Output 06/21/18 06/22/18 06/23/18 06/24/18 23:59 23:59 23:59 23:59 Intake Total 1565 1625 1290 120 Output Total 2750 1900 2150 Balance -1185 -275 -860 120 Weight 183 lb 174 lb 4.8 oz PHYSICAL EXAM GENERAL: ambulating with PT, mild tachypnea, able to speak in full sentences Chest: bibasilar fine rales, improved air entry Abdomen:soft, Obese, NT Extremities: trace pedal edema Neck:soft, supple, no JVD visualized CVS:S1S2 irregular Psych: pleasant, co-operative LABS Laboratory Results - last 24 hr 06/23/18 06/23/18 06/23/18 10:50 16:47 21:58 WBC RBC Hgb Hct MCV MCH MCHC RDW Plt Count MPV Absolute Neuts (auto) Neutrophils % Lymphocytes % Monocytes % Eosinophils % Basophils % Nucleated RBC % Sodium Potassium Chloride Carbon Dioxide Anion Gap BUN Creatinine Creat Clearance w eGFR POC Glucometer 98 247 292 Random Glucose Calcium Phosphorus Magnesium 06/24/18 06/24/18 06/24/18 05:25 05:30 05:30 WBC 14.4 H RBC 4.90 Hgb 14.1 Hct 42.8 MCV 87.4 MCH 28.8 MCHC 33.0 RDW 15.5 Plt Count 195 MPV 8.4 Absolute Neuts (auto) 11.2 H Neutrophils % 77.4 Lymphocytes % 11.6 D Monocytes % 10.5 H D Eosinophils % 0.3 D Basophils % 0.2 Nucleated RBC % 0 Sodium 140 Potassium 3.4 L Chloride 103 Carbon Dioxide 28 Anion Gap 9 BUN 82 H Creatinine 1.5 H Creat Clearance w eGFR 46.27 POC Glucometer 57 Random Glucose 52 L Calcium 9.3 Phosphorus 4.1 Magnesium 2.3 06/24/18 06:17 WBC RBC Hgb Hct MCV MCH MCHC RDW Plt Count MPV Absolute Neuts (auto) Neutrophils % Lymphocytes % Monocytes % Eosinophils % Basophils % Nucleated RBC % Sodium Potassium Chloride Carbon Dioxide Anion Gap BUN Creatinine Creat Clearance w eGFR POC Glucometer 94 Random Glucose Calcium Phosphorus Magnesium EKG: new T inversion in V2-V6 and Q in III/aVF Renal/Bladder US: The right kidney measures 9.2 cm in sagittal length with significantly prominent central sinus echoes. There is a tiny nonobstructing stone in its midportion measuring 4.5 x 3.5 mm. Left kidney measures 10.5 cm in sagittal length a prominent central sinus echoes. A nonobstructing stone is present in its midportion measuring 4 mm. No gross cystic or solid mass lesions identified in both kidneys. Visualized portion of the liver appears unremarkable Moderately distended urinary bladder with a volume of 470 cc and without wall thickening. Bilateral ureteral jets were not visualized. There is approximately 120 cc of postvoid urine residue. Prostate gland volume is 37.3 cc IMPRESSION: Bilateral renal central sinus lipomatosis. Tiny nonobstructing stone in the right and left mid kidney without evidence of hydronephrosis. Moderately distended urinary bladder without wall thickening. Bilaterally 12 jets were not identified. Postvoid urine residue is 120 cc Slightly enlarged prostate gland with a volume of 37.3 cc Echo: borderline global hypokinesis, borderline reduced LV systolic function, EF 45-50%, mildly dilated RV, RV systolic function mildly reduced HOSPITAL COURSE: Date of Admission:06/19/18 Date of Discharge: 06/24/18 Minutes to complete discharge: 40 Discharge Summary Reason For Visit: ACUTE ON CHRONIC CONGESTIVE HEART FAILURE Current Active Problems CHF (congestive heart failure), NYHA class III (Acute) Pneumonia (Acute) Pulmonary fibrosis (Acute) Respiratory distress (Acute) Hospital Course: 72 yom with PMhx of COPD, Steroid/oxygen (3L) dependent Pulmonary fibrosis/ILD , SHANTI on CPAP at night, Pulmonary HTN, CKD stage II, LV systolic dysfunction, prior admissions for CHF, CAD s/p SD, 2Stents , T2DM on Insulin, Hypercholesterolemia admitted with progressive exertional dyspnea and hypoxia. Patient was placed on high flow oxygen and admitted to ICU. He was placed on IV steroids, lasix and emperic antibiotics. His symptoms rapidly improved and steroids and lasix were transitioned to PO. His antibiotics were stopped given no clear evidence of infection with no new concerns. He had now EKG changes in anterolateral and inferior leads. He had 2D echo with worsening LV systolic function than prior with EF 20-25%, his troponins were negative. He was seen by cardiology Dr. Calle, started on ASA and advised outpatient follow up for additional testing. He was noted with TAZ, his lsoartan was held. He was seen by nephrology. His renal function improved with diuresis and his losartan will be held on discharge. Patient is known on high doses on insulin via sliding scale at home with h/o difficult to control blood sugars. He had significant steroid induced hyperglycemia and was placed on levemir with improvement. He is strongly advised compliance with home oxygen (family expressed concerns about non compliance) He will be discharged home with services in stable condition, on oral prednisone taper. Condition: Stable - Instructions Diet, Activity, Other Instructions: You were admitted with trouble breathing and worsening of your kidney function. You received intravenous lasix, steroids and were transiently placed on antibiotics. You were also noted with new EKG changes and abnormal Echo findings. You were seen by Dr. Calle and will need further follow up with him to address additional treatment. Your kidney function improved and will need close monitoring outpatient MEDICATIONS: Start : ASA 81 mg daily Prednisone as below: 30 mg daily for 3 days starting tomorrow (06/25, 06/26, 06/27) then 20 mg daily for 3 days (06/28, 06/29, 06/30) 10 mg daily till further instructed by your doctor Stop Losartan till further instructed by your doctor Continue other medications as before. INSTRUCTIONS: Weigh yourself daily and notify doctor if weight gain > 3lbs in 2 days Close monitoring of your kidney function, with blood work in 3-4 days of discharge with Dr. Locke Monitor your sugars closely before meals and at bedtime as before and notify Dr. Aranda if < 75 or persistently > 140 noted. Strongly encouraged to continue using your oxygen as advised, 3-4 liters at rest and 5-6 liters with activity and ambulation FOLLOW UP: With Dr. Locke before the end of this week (in 3-5 days) Blood work to check your kidneys BMP (basic metabolic panel) in 3-[address] Calle in 1 week to discuss further including cardiac catheterisation and additional testing With curatorial assistant in 1-2 weeks With speech pathology assistant in 1-2 weeks If you notice any fevers, chills, chest pain, heart racing, trouble breathing, increased cough with sputum or any new concerns, please call 911 or come to the ED Referrals: Juarez Pang MD [Staff Physician] - Lonnie Garrido MD [Primary Care Provider] - Autumn Pool MD [Staff Physician] - Tahir Calle MD [Staff Physician] - Disposition: VNS/HOME HEALTH CARE - Home Medications Comprehensive Discharge Medication List: Ambulatory Orders Albuterol Sulfate [Proair Hfa] 2 inh IH QID 02/21/18 Allopurinol [Zyloprim -] 50 mg PO DAILY 02/21/18 Cholecalciferol (Vitamin D3) [Vitamin D -] 2,000 unit PO DAILY 02/21/18 Dulaglutide [Trulicity] 1.5 mg SQ WEEKLY 02/21/18 Ezetimibe [Zetia -] 10 mg PO DAILY 02/21/18 Lactobacillus Acidophilus [Acidophilus] 1 each PO DAILY 02/21/18 Metoprolol Succinate 50 mg PO HS 02/21/18 Pantoprazole Sodium [Protonix] 40 mg PO DAILY 02/21/18 Pitavastatin Calcium [Livalo] 4 mg PO DAILY 02/21/18 Ubidecarenone [Co Q-10] 200 mg PO DAILY 02/21/18 Furosemide [Lasix] 80 mg PO DAILY 03/13/18 Insulin (Levemir) [Levemir Vial] 0 units SQ ASDIR 03/17/18 Cider Vinegar [Apple Cider Vinegar] 500 mg PO DAILY 06/19/18 Cyanocobalamin (Vitamin B-12) [Vitamin B-12] 200 mg PO DAILY 06/19/18 Insulin Sliding Scale [Novolog Vial Sliding Scale -] 0 units SQ ACHS 06/19/18 Nintedanib Esylate [Ofev] 150 mg PO DAILY 06/19/18 Turmeric/Turmeric Root Extract [Turmeric 500 mg Capsule] 500 mg PO DAILY Aspirin Coated [Ecotrin -] 81 mg PO DAILY #30 tablet.ec 06/24/18 Prednisone See Taper PO ASDIR #20 tablet 06/24/18 This patient is new to me today: No Emergency Visit: Yes ED Registration Date: 06/19/18 Care time: The patient presented to the Emergency Department on the above date and was hospitalized for further evaluation of their emergent condition. Critical Care patient: No - Discharge Referral Referred to [facility] Med P.C.: No
[2018-06-24] MEDS ORDERED: guaiFENesin 600 MG TABLET.ER (FP) PO SCH (11:30)
== END 2018-06-24 14:18 | disposition home health service (06) | DRG 291 ==
LOC: JER 18:00 → JERBED 20:06 → JICU 06-20 00:17 → J4S 06-23 15:16
PROVIDERS: ADMIT Internal Medicine; ATTEND Hospitalist
DX: I13.0 Hypertensive heart and chronic kidney disease with heart failure and stage 1 through stage 4 chronic kidney disease, or unspecified chronic kidney disease (principal); J96.21 Acute and chronic respiratory failure with hypoxia; I50.23 Acute on chronic systolic (congestive) heart failure; J44.1 Chronic obstructive pulmonary disease with (acute) exacerbation; E87.2 Acidosis; N17.9 Acute kidney failure, unspecified; I25.2 Old myocardial infarction; I25.10 Atherosclerotic heart disease of native coronary artery without angina pectoris; E78.5 Hyperlipidemia, unspecified; J84.10 Pulmonary fibrosis, unspecified; Z79.4 Long term (current) use of insulin; E11.22 Type 2 diabetes mellitus with diabetic chronic kidney disease; N40.0 Benign prostatic hyperplasia without lower urinary tract symptoms; E83.51 Hypocalcemia; M10.9 Gout, unspecified; E88.09 Other disorders of plasma-protein metabolism, not elsewhere classified; E66.9 Obesity, unspecified; Z99.81 Dependence on supplemental oxygen; E11.40 Type 2 diabetes mellitus with diabetic neuropathy, unspecified; I48.0 Paroxysmal atrial fibrillation; G47.33 Obstructive sleep apnea (adult) (pediatric); N18.2 Chronic kidney disease, stage 2 (mild); I27.20 Pulmonary hypertension, unspecified; E11.21 Type 2 diabetes mellitus with diabetic nephropathy; Z68.27 Body mass index [BMI] 27.0-27.9, adult
CPT/HCPCS: 36415; 36600; 71045-TC-FY; 71250-TC; 76775-TC; 76856-TC; 80048; 80053; 80061; 81003; 82375; 82436; 82550; 82565; 82570; 82803; 82962; 83036; 83050; 83605; 83721; 83735; 83880; 84100; 84133; 84156; 84300; 84439; 84443; 84480; 84484; 85025; 85027; 85610; 85730; 87040; 87804; 93005; 93010; 93306-TC; 94640; 94761; 97116-GP; 97162-GP; 99285-25; G0480; J1644

== ENCOUNTER 2018-07-23 20:00 | Inpatient (IN) | payer OTHER, BC | END 2018-08-01 19:34 | disposition home health service (06) | LOC: J4W 07-27 16:14 → JER 20:00 → JERBED 07-24 00:32 → JICU 07-24 01:50 ==

== ENCOUNTER 2018-09-18 11:10 | Inpatient (IN) | payer OTHER, BC ==
[2018-09-18] MEDS ORDERED: PIPERACILLIN/TAZOB 3.375 GM 3.375 GM in DEXTROSE 5%-WATER - 50 ML IVPB ONE (12:14)
[2018-09-18] MEDS ORDERED: ACETAMINOPHEN 1000 MG/100 ML VIAL (NON FORMULARY) IVPB ONE (12:14)
[2018-09-18] MEDS ORDERED: ACETAMINOPHEN INJECTION 100 ML IVPB ONE (12:21)
--- NOTE | 2018-09-18 12:21 | PDOC ---
History of Present Illness - General Chief Complaint: Shortness of Breath Stated Complaint: DIFFICULTY BREATHING Time Seen by Provider: 09/18/18 11:25 - History of Present Illness Initial Comments: 09/18/18 12:32 HPI: 72 y/o M with pmh of COPD chronically on 6L O2 at home at all times, Pulmonary fibrosis, SHANTI, Pulmonary HTN, CKD, systolic HF, CAD, VT s/p 2Stents, TIDDM, HLD presenting with 1 day of tonic clonic activity associated with headache and confusion. Over the past 24 hours, family reports that the patient has these weakness episodes where he "slumps" to the ground, has tonic clonic seizure like activity, followed by emesis and confusion. The episodes last 2 minutes and he remains confused for 10-15 minutes; he has no recollection of the events. Family reports he's never had these symptoms before. No other focal neurological deficits were reported. The headache is present over the right side of his head extending from the temporal to occipital region. He also has decreased UOP over the past 24hours despite being on 80mg lasix and decreased appetite over the past 3 days. He reports having baseline SOB that has worsened and occurs at rest as well as after walking only a few steps associated with chest pressure with radiation to the neck. He also has 1 day og chills and sweats. Denies fever, abd pain, change in bowel habits. Of note, patient is DNR/DNI and family is working on hospice care PMHx: as noted above ROS: as noted SHx: Denies Etoh, IVDA, tobacco use Allergies: NKDA Past History - Past Medical History Allergies/Adverse Reactions: Allergies Allergy/AdvReac Type Severity Reaction Status Date / Time No Known Drug Allergies Allergy Verified 07/23/18 20:34 Home Medications: Ambulatory Orders Albuterol Sulfate [Proair Hfa] 2 inh IH QID 02/21/18 Allopurinol [Zyloprim -] 50 mg PO DAILY 02/21/18 Cholecalciferol (Vitamin D3) [Vitamin D -] 2,000 unit PO DAILY 02/21/18 Dulaglutide [Trulicity] 1.5 mg SQ WEEKLY 02/21/18 Ezetimibe [Zetia -] 10 mg PO DAILY 02/21/18 Lactobacillus Acidophilus [Acidophilus] 1 each PO DAILY 02/21/18 Metoprolol Succinate 50 mg PO HS 02/21/18 Pantoprazole Sodium [Protonix] 40 mg PO DAILY 02/21/18 Pitavastatin Calcium [Livalo] 4 mg PO DAILY 02/21/18 Ubidecarenone [Co Q-10] 200 mg PO DAILY 02/21/18 Furosemide [Lasix] 80 mg PO DAILY 03/13/18 Insulin (Levemir) [Levemir Vial] 0 units SQ ASDIR 03/17/18 Cider Vinegar [Apple Cider Vinegar] 500 mg PO DAILY 06/19/18 Cyanocobalamin (Vitamin B-12) [Vitamin B-12] 200 mg PO DAILY 06/19/18 Insulin Sliding Scale [Novolog Vial Sliding Scale -] 0 units SQ ACHS 06/19/18 Nintedanib Esylate [Ofev] 150 mg PO DAILY 06/19/18 Turmeric/Turmeric Root Extract [Turmeric 500 mg Capsule] 500 mg PO DAILY Aspirin Coated [Ecotrin -] 81 mg PO DAILY #30 tablet.ec 06/24/18 Clopidogrel Bisulfate [Plavix -] 75 mg PO DAILY #30 tablet 08/01/18 Miscellaneous Drug Not in Syst 1 each .ROUTE DAILY #1 each 08/01/18 Prednisone See Taper PO ASDIR #60 tablet 08/01/18 Ranolazine [Ranexa -] 1,000 mg PO BID #120 tab 08/01/18 Glycopyrrolate/Formoterol Fum [Bevespi Aerosphere Inhaler] 5.9 gm IH ASDIR 09/18 Anemia: No Asthma: No Cancer: No Cardiac Disorders: Yes (VT 1991, CAD, PCI, cardiac cath, stents) CVA: No COPD: Yes CHF: Yes Dementia: No Diabetes: Yes GI Disorders: No Disorders: Yes (BPH) HTN: Yes Hypercholesterolemia: Yes Liver Disease: No Seizures: No Thyroid Disease: No - Surgical History Abdominal Surgery: Yes Appendectomy: Yes (1981) Cardiac Surgery: Yes (stents 2003) Cholecystectomy: No Lung Surgery: No Neurologic Surgery: No Orthopedic Surgery: Yes (rt knee 1995) - Immunization History Td Vaccination: Yes Immunization Up to Date: Yes - Suicide/Smoking/Psychosocial Hx Smoking Status: No Smoking History: Former smoker Have you smoked in the past 12 months: No Number of Cigarettes Smoked Daily: 0 If you are a former smoker, when did you quit?: 1989 Information on smoking cessation initiated: No Hx Alcohol Use: No Drug/Substance Use Hx: No Substance Use Type: None Hx Substance Use Treatment: No Review of Systems - Review of Systems Comments:: 09/18/18 13:13 GENERAL/CONSTITUTIONAL: +chills, weakness. HEAD, EYES, EARS, NOSE AND THROAT: No change in vision. No ear pain or discharge. No sore throat. CARDIOVASCULAR: + chest pain, shortness of breath RESPIRATORY: No cough, wheezing, or hemoptysis. GASTROINTESTINAL: +vomiting. no diarrhea or constipation. GENITOURINARY: + decreased frequency, no change in urination. MUSCULOSKELETAL: No joint or muscle swelling or pain. No neck or back pain. SKIN: No rash NEUROLOGIC: +loss of consciousness and confusion, no change in strength/ sensation. ENDOCRINE: No increased thirst. No abnormal weight change HEMATOLOGIC/LYMPHATIC: No anemia, easy bleeding, or history of blood clots. ALLERGIC/IMMUNOLOGIC: No hives or skin allergy. *Physical Exam - Vital Signs Last Vital Signs Temp Pulse Resp BP Pulse Ox 101.3 F H 61 25 H 105/61 88 L 09/18/18 11:23 09/18/18 11:23 09/18/18 11:43 09/18/18 11:23 09/18/18 11:43 - Physical Exam Comments: 09/18/18 13:19 GENERAL: Awake, alert, shiverring in bed and with increased work of breathing, eyes mostly closed throughout interview while family providing collateral info HEAD: No signs of trauma, normocephalic, atraumatic EYES: EOMI, sclera anicteric, conjunctiva clear ENT: Auricles normal inspection, hearing grossly normal, nares patent, oropharynx clear without exudates. Moist mucosa NECK: Normal ROM, supple, no lymphadenopathy, JVD, or masses LUNGS: Non-rebreather in place with sats 88-92%, tachypneic, increased work of breathing, clear to auscultation in BL upper lung field, crackles present in BL lower lung styles HEART: Regular rate and rhythm, normal S1 and S2, no murmurs, rubs or gallops, peripheral pulses normal and equal bilaterally. ABDOMEN: Soft, nontender, normoactive bowel sounds. No guarding, no rebound. No masses EXTREMITIES : Normal inspection, Normal range of motion, no edema. No clubbing or cyanosis. NEUROLOGICAL: Cranial nerves II through XII grossly intact. Normal speech, normal gait, no focal sensorimotor deficits SKIN: Warm, Dry, normal turgor, no rashes or lesions noted ED Treatment Course - LABORATORY CBC & Chemistry Diagram: 09/18/18 12:14 09/18/18 12:14 - RADIOLOGY Radiology Studies Ordered: Category Date Time Status HEAD CT WITHOUT CONTRAST [CT] Stat CT Scan 09/18/18 12:13 Ordered CHEST X-RAY PORTABLE* [RAD] Stat Radiology 09/18/18 12:12 Ordered Medical Decision Making - Medical Decision Making 09/18/18 13:22 72 y/o M with pmh of COPD chronically on 6L O2 at home at all times, Pulmonary fibrosis, SHANTI, Pulmonary HTN, CKD, systolic HF, CAD, VT s/p 2 stents, IDDM, HLD presenting with 1 day seizure like activity associated with headache, decreased UOP, and increased SOB. On exam, patient tachypnic, O2 sats 88-92% on NRB and with crackles on BL lower lung stlyes, as well as febrile 101.3 -sepsis order set -iv tylenol, iv zosyn -ct head 09/18/18 13:32 CXR: A single view of the chest reveals progressive congestive and infiltrative changes with large heart and unfolded aorta with fullness of the mazin. There is right pleural fluid. Will manage for sepsis 2/[address] Head: Possible acute nonhemorrhagic right frontal cortical infarct. 09/18/18 13:43 Will admit to med/surg under Dr Higgins for treatment of sepsis 2/2 PNA and possible stroke 09/18/18 14:16 BP 89/65; will administer 1L bolus; will not resuscitate 30cc/kg due to patient hx of systolic dysfunction HF and DNR/DNI status that may potentially worsen if fluid overloaded 09/18/18 15:57 BP continues to be low with SBP 78; will administer remainder of fluid resuscitation per sepsis protocol given patient respiratory status siginifcantly improved and O2 sats 100% *DC/Admit/Observation/Transfer Diagnosis at time of Disposition: Pneumonia Qualifiers: Pneumonia type: due to unspecified organism Laterality: unspecified laterality Lung location: unspecified part of lung Qualified Code(s): J18.9 - Pneumonia, unspecified organism - Discharge Dispostion Condition at time of disposition: Stable Decision to Admit order: Yes - Referrals - Patient Instructions - Post Discharge Activity
[2018-09-18] MEDS ORDERED: PIPERACILLIN/TAZOB 3.375 GM 3.375 GM/50 ML BAG IVPB ONE (12:41)
[2018-09-18 12:42] LABS: VENOUS PC02 44.4 mmHg (41-51); VENOUS PH 7.37 (7.31-7.41); VENOUS PO2 45.3 mmHg (30-40)
[2018-09-18 12:45] LABS: BASO % 0.8 % (0-2.0); EOS % 1.6 % (0-4.5); HEMATOCRIT 40.2 % (35.4-49); HEMOGLOBIN 13.2 GM/dL (11.7-16.9); LYMPH % 13.8 % (8-40); MCH 28.6 pg (25.7-33.7); MCHC 32.9 g/dl (32.0-35.9); MEAN CELL VOLUME 86.8 fl (80-96); MEAN PLT VOLUME 7.6 fl (7.5-11.1); MONO % 12.3 % (3.8-10.2); NEUT % 71.5 % (42.8-82.8); PLATELET COUNT 195 K/MM3 (134-434); RBC 4.63 M/mm3 (4.00-5.60); RDW 18.2 % (11.9-15.9); WHITE BLOOD COUNT 11.3 K/mm3 (4.0-10.0)
[2018-09-18 13:11] LABS: INR 1.16 (0.83-1.09); PROTHROMBIN TIME (PATIENT) 13.7 SEC (9.7-13.0)
[2018-09-18 13:15] LABS: ALBUMIN 2.9 g/dl (3.4-5.0); BILIRUBIN,TOTAL 0.7 mg/dL (0.2-1); BLOOD UREA NITROGEN 42.6 mg/dL (7-18); CALCIUM 9.3 mg/dL (8.5-10.1); CREATININE 2.8 mg/dL (0.55-1.3); POTASSIUM 4.4 mmol/L (3.5-5.1); TOT PROT 6.2 g/dl (6.4-8.2)
[2018-09-18] MEDS ORDERED: levETIRAcetam 500 MG/5 ML INJECTION VIAL IVPB ONE ×2 (13:54→14:18)
--- NOTE | 2018-09-18 14:13 | PDOC ---
Documentation entered by Azul Garrido SCRIBE, acting as scribe for Elfego Vang MD. Elfego Vang MD: This documentation has been prepared by the Radhika joshua Brenda, SCRIBE, under my direction and personally reviewed by me in its entirety. I confirm that the documentation accurately reflects all work, treatment, procedures, and medical decision making performed by me. Attending Attestation - Resident Resident Name: MicheleLashay - ED Attending Attestation I have performed the following: I have examined & evaluated the patient, The case was reviewed & discussed with the resident, I agree w/resident's findings & plan, Exceptions are as noted - HPI HPI: 09/18/18 13:09 The patient is a 72 year old male, with a significant PMH of HTN, HLD, IDDM, [place] , CAD, COPD, Pulmonary Fibrosis on 6L, and sleep apnea, who presents to the emergency department with 24 hours of 2 minutes episodes of whole body tremors ( tonic clonic seizure activity) resulting in fall, accompanied by headaches and episodes of confusion lasting 10-15 minutes. As per family on the bedside, after experiencing the seizure like episodes, the patient also has an episode of vomiting. The family also endorses a right-sided headache, an acute onset of bilateral arm tremors and decreased appetite. The patients family denies any similar episodes. Allergies: NKA Past surgical history: Appendectomy, Cataract Removal (coronary artery stent by history. 2011 3 stents placed). Ortho: unknown right knee surgery. Social history: denies any tobacco use, alcohol use or illicit drug use. PCP: Not reported Telegraph Messenger: Dr. Mary Varela Senior Technical Business Analyst: Dr. Calle - Physicial Exam PE: 09/18/18 13:09 Vitals: Triage Vital signs reviewed General Appearance: Well nourished well developed, Head: Atraumatic, normocephalic Eyes: Pupils equal reactive round, extraocular movement intact Neck: Supple;No Nuchal rigidity Chest Wall: Nontender Cardiac: Regular rate and rhythm, no murmurs, no rubs, no gallops, Lungs: (+) Breath sounds are coarse. Extremities:(+)Bilateral upper extremity twitching. Full range of motion to all extremities, no cyanosis, clubbing, or edema Skin: Warm and dry, no rashes or lesions, no petechiae Neuro: AOX3; Cranial Nerves 2-12 grossly intact Psych: normal mood, normal affect - Medical Decision Making 09/18/18 14:41 72 years old DNR/DNI, end stage lung dz, CAD, p/w blackout episodes. Initial conversations regarding palliative care had begun being discussed with patient and family, but had not been finalized. Pt. workup in the ED today demonstrates new pneumonia and possible subacute stroke Family patient like to proceed with antibiotics but would not want overly aggressive heroic measures We'll admit to medicine MedSurg given DNR/DNI status for antibiotic treatment fluids and further management.
[2018-09-18] MEDS ORDERED: SODIUM CHLORIDE 1,000 ML IV STA (14:15)
--- NOTE | 2018-09-18 14:38 | EKG ---
Test Reason : Blood Pressure : / mmHG Vent. Rate : 104 BPM Atrial Rate : 104 BPM P-R Int : 200 ms QRS Dur : 116 ms QT Int : 514 ms P-R-T Axes : 030 099 000 degrees QTc Int : 675 ms SINUS TACHYCARDIA WITH OCCASIONAL PREMATURE VENTRICULAR COMPLEXES AND FUSION COMPLEXES RIGHTWARD AXIS INCOMPLETE RIGHT BUNDLE BRANCH BLOCK PROLONGED QT ABNORMAL ECG WHEN COMPARED WITH ECG OF 24-JUL-2018 09:02, SIGNIFICANT CHANGES HAVE OCCURRED Confirmed by ROSITA LALA, EVER ([id number]) on 09/18/2018 2:37:35 PM Referred By: Confirmed By:EVER BECKER MD
[2018-09-18] MEDS ORDERED: SODIUM CHLORIDE 2,517 ML IV ONE (14:39)
--- NOTE | 2018-09-18 14:44 | HP ---
Admitting History and Physical - Primary Care Physician PCP: Lonnie Garrido - Admission Chief Complaint: I feel weak History of Present Illness: Mr Dolan is a very pleasant 72 year old male who comes in with fevers and weakness. He was here last month and after being discharged he said he was feeling very weak. He says he was getting weaker and weaker to the point where he could not walk from his bedroom to the living room without assistance. He was also very fatigued and sleeping a lot. He was in discussion about hospice and was planning to start today, however he was noted to feel warm with chills and was having episodes where he was passing in and out of consciousness. He was also coughing and feeling short of breath and decided to come in to be evaluated. He is still feeling weak, short of breath, and with malaise and myalgias. He also feels feverish but is not having chills. He no longer is going in and out of consciousness and denies lightheadedness. He denies chest pain, nausea, vomiting, diarrhea, constipation, difficulty or pain on urination , or swelling. History Source: Patient Limitations to Obtaining History: No Limitations - Past Medical History Cardiovascular: Yes: CAD, CHF, HTN, NV, Pulmonary Hypertension Pulmonary: Yes: COPD, O2 Dependent, Pulmonary Fibrosis, Sleep Apnea, Other (ILD) Renal/: Yes: Renal Inusuff, BPH, Hematuria Psych: Yes: Anxiety Endocrine: Yes: Diabetes Mellitus. No: Thierry's Disease - Past Surgical History Past Surgical History: Yes: Appendectomy, Cataract Removal (coronary artery stent by history. 2010 3 stents placed), Stent - Smoking History Smoking history: Former smoker Have you smoked in the past 12 months: No Aproximately how many cigarettes per day: 0 If you are a former smoker, when did you quit?: 1989 - Alcohol/Substance Use Hx Alcohol Use: No History of Substance Use: reports: None - Social History ADL: Independent Occupation: retired secondary to disability History of Recent Travel: No Home Medications - Allergies Allergies/Adverse Reactions: Allergies Allergy/AdvReac Type Severity Reaction Status Date / Time No Known Drug Allergies Allergy Verified 07/23/18 20:34 - Home Medications Home Medications: Ambulatory Orders Albuterol Sulfate [Proair Hfa] 2 inh IH QID 02/21/18 Allopurinol [Zyloprim -] 50 mg PO DAILY 02/21/18 Cholecalciferol (Vitamin D3) [Vitamin D -] 2,000 unit PO DAILY 02/21/18 Dulaglutide [Trulicity] 1.5 mg SQ WEEKLY 02/21/18 Ezetimibe [Zetia -] 10 mg PO DAILY 02/21/18 Lactobacillus Acidophilus [Acidophilus] 1 each PO DAILY 02/21/18 Metoprolol Succinate 50 mg PO HS 02/21/18 Pantoprazole Sodium [Protonix] 40 mg PO DAILY 02/21/18 Pitavastatin Calcium [Livalo] 4 mg PO DAILY 02/21/18 Ubidecarenone [Co Q-10] 200 mg PO DAILY 02/21/18 Furosemide [Lasix] 80 mg PO DAILY 03/13/18 Insulin (Levemir) [Levemir Vial] 0 units SQ ASDIR 03/17/18 Cider Vinegar [Apple Cider Vinegar] 500 mg PO DAILY 06/19/18 Cyanocobalamin (Vitamin B-12) [Vitamin B-12] 200 mg PO DAILY 06/19/18 Insulin Sliding Scale [Novolog Vial Sliding Scale -] 0 units SQ ACHS 06/19/18 Nintedanib Esylate [Ofev] 150 mg PO DAILY 06/19/18 Turmeric/Turmeric Root Extract [Turmeric 500 mg Capsule] 500 mg PO DAILY Aspirin Coated [Ecotrin -] 81 mg PO DAILY #30 tablet.ec 06/24/18 Clopidogrel Bisulfate [Plavix -] 75 mg PO DAILY #30 tablet 08/01/18 Miscellaneous Drug Not in Syst 1 each .ROUTE DAILY #1 each 08/01/18 Prednisone See Taper PO ASDIR #60 tablet 08/01/18 Ranolazine [Ranexa -] 1,000 mg PO BID #120 tab 08/01/18 Glycopyrrolate/Formoterol Fum [Bevespi Aerosphere Inhaler] 5.9 gm IH ASDIR 09/18 Family Disease History - Family Disease History Family Disease History: Diabetes: Father, Brother, Heart Disease: Father, Other : Mother (dementia) Review of Systems Findings/Remarks: Full review of systems obtained, as per HPI and otherwise negative Physical Examination Vital Signs: Vital Signs Temperature 38.5 C H 09/18/18 11:23 Pulse Rate 94 H 09/18/18 12:57 Respiratory Rate 23 H 09/18/18 12:57 Blood Pressure 90/55 L 09/18/18 13:48 O2 Sat by Pulse Oximetry (%) 94 L 09/18/18 12:57 Constitutional: Yes: Well Nourished, No Distress, Calm Eyes: Yes: Conjunctiva Clear, EOM Intact, PERRL HENT: Yes: Atraumatic, Normocephalic Cardiovascular: Yes: Regular Rate and Rhythm. No: Gallop, Murmur, Rub Respiratory: Yes: Regular, On Nasal O2, Rhonchi. No: CTA Bilaterally, Wheezes Gastrointestinal: Yes: Normal Bowel Sounds, Soft. No: Distention, Tenderness Extremities: Yes: WNL Edema: No Labs: CBC, BMP 09/18/18 12:14 09/18/18 12:14 Imaging - Results Chest X-ray: Report Reviewed, Image Reviewed Cat Scan: Report Reviewed Problem List - Problems (1) Pneumonia Assessment/Plan: -case d/w Dr Colindres who will see in consultation -suspect aspiration -given zosyn in the ED -continue zosyn, renally dosed Code(s): J18.9 - PNEUMONIA, UNSPECIFIED ORGANISM Qualifiers: Pneumonia type: due to unspecified organism Laterality: unspecified laterality Lung location: unspecified part of lung Qualified Code(s): J18.9 - Pneumonia, unspecified organism (2) Sepsis Assessment/Plan: -secondary to infection -IVF and antibiotics -patient is considering hospice -at this point will support with IVF and zosyn but not escalate further -clarified code status and patient in DNR/DNI -consult palliative care to see in am -case d/w Dr Garrido who will see in am and help clarify as patient and family seem unsure of next step in goals of care Code(s): A41.9 - SEPSIS, UNSPECIFIED ORGANISM (3) Acute and chronic respiratory failure with hypoxia Assessment/Plan: -secondary to pneumonia and sepsis -concern for possible fluid overload, however hypotensive so will need fluids -can increase oxygen support if needed Code(s): J96.21 - ACUTE AND CHRONIC RESPIRATORY FAILURE WITH HYPOXIA (4) Plaki-nn-chumdzd kidney injury Assessment/Plan: -secondary to sepsis with hypotension -given IVF for sepsis -will continue IVF at this time -hold lasix Code(s): N17.9 - ACUTE KIDNEY FAILURE, UNSPECIFIED; N18.9 - CHRONIC KIDNEY DISEASE, UNSPECIFIED Qualifiers: Acute renal failure type: unspecified Chronic kidney disease stage: unspecified stage Qualified Code(s): N17.9 - Acute kidney failure, unspecified ; N18.9 - Chronic kidney disease, unspecified; N18.9 - Chronic kidney disease, unspecified (5) CAD (coronary artery disease) Assessment/Plan: -hold metoprolol for hypotension -otherwise continue current regimen -if decides on hospice can simplify drug regimen -quiescent currently Code(s): I25.10 - ATHSCL HEART DISEASE OF [place] CORONARY ARTERY W/O ANG PCTRS Qualifiers: [place] vs. transplanted heart: [place] heart Associated angina: without angina (6) CHF (congestive heart failure), NYHA class III Assessment/Plan: -holding lasix and hydrating as above Code(s): I50.9 - HEART FAILURE, UNSPECIFIED Qualifiers: Congestive heart failure type: systolic Congestive heart failure chronicity : chronic Qualified Code(s): I50.22 - Chronic systolic (congestive) heart failure (7) COPD (chronic obstructive pulmonary disease) Assessment/Plan: -continue steroids and bronchodilators -oxygen support Code(s): J44.9 - CHRONIC OBSTRUCTIVE PULMONARY DISEASE, UNSPECIFIED (8) Diabetes mellitus Assessment/Plan: -FSBS and SSI -monitor, expect elevation secondary to steroids -no need for aggressive glucose control at this time Code(s): E11.9 - TYPE 2 DIABETES MELLITUS WITHOUT COMPLICATIONS Qualifiers: Diabetes mellitus type: type 2 Diabetes mellitus termite treater insulin use: with termite treater use Diabetes mellitus complication status: with kidney complications Diabetes mellitus complication detail: with chronic kidney disease Chronic kidney disease stage: stage 3 (moderate) Qualified Code(s): E11.22 - Type 2 diabetes mellitus with diabetic chronic kidney disease; N18.3 - Chronic kidney disease, stage 3 (moderate); Z79.4 - senior care (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 Assessment/Plan -long discussion with patient and family about goals of care -at this point patient and family are unsure about next best step and I suspect patient and family are very emotionally torn -will continue to talk and be supportive, explaining and clarifying expectations -palliative care consulted and will see as well -case d/w Dr Garrido who will also be speaking with patient and family -DNR/DNI still in effect, but this may change if patient begins dying process here -if patient worsens, low threshold for starting morphine gtt and making comfortable in patient is agreeable (or family if patient becomes unable to make that decision) -overall very poor prognosis
[2018-09-18] MEDS ORDERED: ONDANSETRON 4 MG/2 ML VIAL IVPUSH PRN (15:08)
[2018-09-18] MEDS ORDERED: ACETAMINOPHEN 325 MG TABLET (FP) PO PRN (15:08)
[2018-09-18] MEDS ORDERED: PATIENT'S OWN MEDICATION (NON-FORMULARY) (Glycopyrrolate/Formoterol Fum [Bevespi Aerospher IH SCH (15:15)
[2018-09-18 15:40] LABS: ANISOCYTOSIS 1+; MACROCYTOSIS 1+; OVALOCYTE 1+; PLATELET ESTIMATE NORMAL
--- NOTE | 2018-09-18 17:36 | PN ---
Progress Note (short form) - Note Progress Note: ID consult dictated imp/reccd 72 yo man with ILD, CAD home oxygen admitted with one day of worsening hypoxia, falls, vomiting/retching- fever in ED to 101.3 takes a zpak every month just finished one week ago suspected aspiration pneumonia proabable small acute CVA agree with zosyn to cover for aspiration d/c hospitalist Problem List - Problems (1) Acute and chronic respiratory failure with hypoxia Code(s): J96.21 - ACUTE AND CHRONIC RESPIRATORY FAILURE WITH HYPOXIA (2) Pneumonia Code(s): J18.9 - PNEUMONIA, UNSPECIFIED ORGANISM Qualifiers: Pneumonia type: due to unspecified organism Laterality: unspecified laterality Lung location: unspecified part of lung Qualified Code(s): J18.9 - Pneumonia, unspecified organism (3) COPD (chronic obstructive pulmonary disease) Code(s): J44.9 - CHRONIC OBSTRUCTIVE PULMONARY DISEASE, UNSPECIFIED Qualifiers: COPD type: unspecified COPD Qualified Code(s): J44.9 - Chronic obstructive pulmonary disease, unspecified
[2018-09-18] MEDS: INSULIN SLIDING SCALE (NOVOLOG) 1 VIAL SQ SCH ×2 (17:58→21:26)
[2018-09-18] MEDS: SODIUM CHLORIDE 1,000 ML IV SCH (18:33)
[2018-09-18] MEDS: methylPREDNISolone NA SUCC 40 MG/1 ML VIAL IVPUSH SCH (18:33)
[2018-09-18 18:48] LABS: EPI CELLS 1.8 /HPF (0-5/HPF); HYALINE CASTS 11 /lpf (0-8); URINE APPEARANCE CLEAR; URINE BACTERIA 2.4 /hpf (NEGATIVE); URINE BILIRUBIN 1+ (NEGATIVE); URINE COLOR DK YELLOW; URINE GLUCOSE (UA) NEGATIVE (NEGATIVE); URINE KETONE TRACE (NEGATIVE); URINE LEUK ESTERASE NEGATIVE (NEGATIVE); URINE NITRITE NEGATIVE (NEGATIVE); URINE PROTEIN 2+ (NEGATIVE); URINE RBC 6 /hpf (0-4); URINE UROBILINOGEN 0.2 mg/dL (0.2-1.0); URINE WBC 1 /hpf (0-5)
[2018-09-18] MEDS: ALBUTEROL SO4 2.5/IPRATROPIUM 0.5 INH SOL 3 ML VIAL.NEB. NEB PRN (20:00)
[2018-09-18] MEDS ORDERED: PIPERACILLIN/TAZOBACTAM 2.25 GM VIAL IVPB ONE (20:03)
[2018-09-18] MEDS ORDERED: DEXTROSE 5%-WATER - 50 ML IVPB ONE (20:03)
[2018-09-18] MEDS ORDERED: RANOLAZINE E.R. 500 MG TABLET (FP) ONE (20:03)
[2018-09-18] MEDS: PIPERACILLIN/TAZOB 2.25 GM 2.25 GM in DEXTROSE 5%-WATER - 50 ML IVPB SCH (20:53)
[2018-09-18] MEDS ORDERED: PIPERACILLIN/TAZOB 2.25 GM 2.25 GM in DEXTROSE 5%-WATER - 50 ML IVPB SCH (21:00)
[2018-09-18] MEDS: RANOLAZINE E.R. 1,000 MG TABLET (FP) PO SCH (21:26)
[2018-09-18] MEDS: ATORVASTATIN CA 20 MG TABLET (FP) PO SCH (21:26)
[2018-09-18] MEDS: ALBUTEROL SO4 8 GM HFA INHALER IH SCH (22:37)
[2018-09-19] MEDS ORDERED: DEXTROSE 5%-WATER - 50 ML IVPB ONE ×4 (00:48→21:44)
[2018-09-19] MEDS ORDERED: PIPERACILLIN/TAZOBACTAM 2.25 GM VIAL IVPB ONE ×4 (00:48→21:43)
[2018-09-19] MEDS: methylPREDNISolone NA SUCC 40 MG/1 ML VIAL IVPUSH SCH ×3 (01:17→17:44)
[2018-09-19] MEDS: PIPERACILLIN/TAZOB 2.25 GM 2.25 GM in DEXTROSE 5%-WATER - 50 ML IVPB SCH ×4 (03:01→21:49)
[2018-09-19] MEDS: INSULIN SLIDING SCALE (NOVOLOG) 1 VIAL SQ SCH ×4 (06:05→21:50)
[2018-09-19] MEDS: SODIUM CHLORIDE 1,000 ML IV SCH (06:22)
[2018-09-19] MEDS: ALBUTEROL SO4 8 GM HFA INHALER IH SCH ×5 (07:35→21:49)
[2018-09-19 08:31] LABS: BASO % 0.4 % (0-2.0); HEMATOCRIT 36.7 % (35.4-49); HEMOGLOBIN 12.1 GM/dL (11.7-16.9); LYMPH % 6.8 % (8-40); MCH 28.6 pg (25.7-33.7); MCHC 32.9 g/dl (32.0-35.9); MEAN CELL VOLUME 87.2 fl (80-96); MEAN PLT VOLUME 8.1 fl (7.5-11.1); MONO % 1.8 % (3.8-10.2); PLATELET COUNT 174 K/MM3 (134-434); RBC 4.22 M/mm3 (4.00-5.60); WHITE BLOOD COUNT 6.6 K/mm3 (4.0-10.0)
[2018-09-19 08:46] LABS: BLOOD UREA NITROGEN 42.9 mg/dL (7-18); CALCIUM 8.8 mg/dL (8.5-10.1); CREATININE 2.6 mg/dL (0.55-1.3); PHOSPHOROUS 4.7 mg/dL (2.5-4.9); POTASSIUM 5.3 mmol/L (3.5-5.1)
[2018-09-19] MEDS ORDERED: RANOLAZINE E.R. 500 MG TABLET (FP) ONE ×2 (09:32→21:43)
[2018-09-19] MEDS ORDERED: PT OWN MED DRAWER 7, Y5N ONE ×2 (09:33→10:47)
[2018-09-19] MEDS ORDERED: FUROSEMIDE 40 MG TABLET (FP) PO SCH (10:00)
[2018-09-19] MEDS: CLOPIDOGREL BISULFATE 75 MG TABLET (FP) PO SCH (10:18)
[2018-09-19] MEDS: ALLOPURINOL 100 MG TABLET (FP) PO SCH (10:19)
[2018-09-19] MEDS: ASPIRIN COATED 81 MG TABLET.EC PO SCH (10:19)
[2018-09-19] MEDS: LACTOBACILLUS ACIDOPHILUS 1 TABLET PO SCH (10:19)
[2018-09-19] MEDS: PANTOPRAZOLE 40 MG TABLET (FP) PO SCH (10:19)
[2018-09-19] MEDS: RANOLAZINE E.R. 1,000 MG TABLET (FP) PO SCH ×2 (10:20→21:51)
[2018-09-19] MEDS: EZETIMIBE 10 MG TABLET (FP) PO SCH (10:21)
[2018-09-19] MEDS ORDERED: INSULIN (NOVOLOG) ASPART 100 UNITS/ML 10ML VIAL ONE ×2 (11:49→21:44)
[2018-09-19] MEDS: CYANOCOBALAMIN (VITAMIN B-12) 100 MCG TABLET PO SCH (12:36)
--- NOTE | 2018-09-19 12:36 | PN ---
Progress Note (short form) - Note Progress Note: PULMONARY CONSULTATION DICTATED 09/19/18 IMP ACUTE ON CHRONIC HYPOXEMIC RESPIRATORY FAILURE END STAGE ILD PNEUMONIA END STAGE COPD PULMONARY HTN CKD ASHD CHF DM HTN CVA SHANTI PLAN ABX O2 TO MAINTAIN O2 SAT 90% OR GREATER NIPPV NEEDED INHALED BRONCHODILATORS STEROIDS MONITOR LYTES,RENAL FUNCTION F/U CHEST X-RAYS DR PALACIOS Problem List - Problems (1) Pneumonia Code(s): J18.9 - PNEUMONIA, UNSPECIFIED ORGANISM Qualifiers: Pneumonia type: due to unspecified organism Laterality: unspecified laterality Lung location: unspecified part of lung Qualified Code(s): J18.9 - Pneumonia, unspecified organism (2) Acute and chronic respiratory failure Code(s): J96.20 - ACUTE AND CHR RESP FAILURE, UNSP W HYPOXIA OR HYPERCAPNIA Qualifiers: (3) Acute and chronic respiratory failure with hypoxia Code(s): J96.21 - ACUTE AND CHRONIC RESPIRATORY FAILURE WITH HYPOXIA (4) Jajcy-ay-gwlmprp kidney injury Code(s): N17.9 - ACUTE KIDNEY FAILURE, UNSPECIFIED; N18.9 - CHRONIC KIDNEY DISEASE, UNSPECIFIED Qualifiers: Acute renal failure type: unspecified Chronic kidney disease stage: unspecified stage Qualified Code(s): N17.9 - Acute kidney failure, unspecified ; N18.9 - Chronic kidney disease, unspecified; N18.9 - Chronic kidney disease, unspecified (5) CAD (coronary artery disease) Code(s): I25.10 - ATHSCL HEART DISEASE OF [place] CORONARY ARTERY W/O ANG PCTRS Qualifiers: [place] vs. transplanted heart: [place] heart Associated angina: without angina (6) CHF (congestive heart failure), NYHA class III Code(s): I50.9 - HEART FAILURE, UNSPECIFIED Qualifiers: Congestive heart failure type: systolic Congestive heart failure chronicity : chronic Qualified Code(s): I50.22 - Chronic systolic (congestive) heart failure (7) CKD (chronic kidney disease) stage 3, GFR 30-59 ml/min Code(s): N18.3 - CHRONIC KIDNEY DISEASE, STAGE 3 (MODERATE) (8) COPD (chronic obstructive pulmonary disease) Code(s): J44.9 - CHRONIC OBSTRUCTIVE PULMONARY DISEASE, UNSPECIFIED (9) Diabetes mellitus type 2 in nonobese Code(s): E11.9 - TYPE 2 DIABETES MELLITUS WITHOUT COMPLICATIONS (10) Dizziness Code(s): R42 - DIZZINESS AND GIDDINESS (11) HTN (hypertension) Code(s): I10 - ESSENTIAL (PRIMARY) HYPERTENSION Qualifiers: Hypertension type: essential hypertension Qualified Code(s): I10 - Essential (primary) hypertension (12) Pulmonary fibrosis Code(s): J84.10 - PULMONARY FIBROSIS, UNSPECIFIED (13) Sleep apnea Code(s): G47.30 - SLEEP APNEA, UNSPECIFIED (14) Acute CVA (cerebrovascular accident) Code(s): I63.9 - CEREBRAL INFARCTION, UNSPECIFIED (15) BPH (benign prostatic hyperplasia) Code(s): N40.0 - BENIGN PROSTATIC HYPERPLASIA WITHOUT LOWER URINRY TRACT SYMP Qualifiers: Lower urinary tract symptom presence: symptoms absent Qualified Code(s): N40.0 - Benign prostatic hyperplasia without lower urinary tract symptoms
[2018-09-19 13:00] LABS: ANISOCYTOSIS 2+; MACROCYTOSIS 1+; OVALOCYTE 1+; PLATELET ESTIMATE NORMAL; TEAR DROP CELLS 1+
[2018-09-19] MEDS: ALBUTEROL SO4 2.5/IPRATROPIUM 0.5 INH SOL 3 ML VIAL.NEB. NEB PRN ×2 (14:46→22:10)
--- NOTE | 2018-09-19 15:16 | CONS ---
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 He was admitted to [facility] with increasing shortness of breath, low-grade temperature, cough productive of clear sputum, and progressive fatigue. Patient was recently hospitalized a month ago at [facility]. Apparently, since discharge, he was getting progressively weaker and weaker to the point he could not ambulate. Yesterday on admission he felt warm with chills having episodes where he was passing in and out of consciousness. According to his , his eyes were open, but in a blank stare. There was no incontinence. He was also coughing. At which time, he presented to the emergency room. In the ER, he was noted to be in marked respiratory distress. He was placed on 100% O2, administered steroids and bronchodilators, had some clinical improvement. Chest x-ray performed revealed a possible new left-sided infiltrate. He was placed on broad spectrum antibiotics. The patient was also noted to have a fever of 101.3 on arrival to the ER. PAST MEDICAL HISTORY: Again includes end-stage pulmonary fibrosis on O2 at 6 L, obstructive sleep apnea, COPD, pulmonary hypertension, chronic kidney disease, ASHD, status post NH, congestive heart failure, BPH, diabetes. SOCIAL HISTORY: Tobacco use, quit in 1989 previously. He is unsure whether or not he was exposed to chemicals and fumes in the past. FAMILY HISTORY: Father and brother with history of heart disease. Mother dementia. REVIEW OF SYSTEMS: Positive for orthopnea. Positive for dyspnea. Positive for cough. Positive for fever. Positive for chills. No chest pain. Positive for chest tightness. No hemoptysis. No abdominal pain. CURRENT MEDICATIONS: Include Bevespi, Zofran, Solu-Medrol, Tylenol, piperacillin, Zyloprim, Ventolin, Duo-Neb, Ranexa, Zetia, Lipitor, NovoLog, Ecotrin, Plavix, Protonix, and vitamin B12. PHYSICAL EXAMINATION: General: The patient is a well-developed, well-nourished male, awake, dyspneic, but in no acute respiratory distress, currently on nasal cannula. Vital signs: Blood pressure is 134/78, respiratory rate 20, O2 saturation is 97%. HEENT: Head is normocephalic atraumatic. Neck: Supple. Heart: Regular with S1, S2. Chest: Bilateral crackles throughout. Abdomen: Soft. Bowel sounds positive. Extremities: No cyanosis or edema. LABORATORIES: BUN 42, creatinine 2.6, lactate level 2.5 on admission and repeat 1.2. WBC 6.6, hemoglobin 12.1, hematocrit 36.7, and platelet count of 174,000. Chemistries as noted earlier. Venous blood gas 7.37, pCO2 of 44, pO2 of 45, bicarbonate of 24 and saturation of 76. Chest x-ray with increased congestion, infiltrates and cardiomegaly. Head CT positive acute on hemorrhagic right frontal cortical infarct. IMPRESSION: Acute on chronic hypoxemic respiratory failure secondary to 1. End-stage pulmonary fibrosis. 2. Interstitial lung disease. 3. Pneumonia. 4. Pulmonary hypertension. 5. Advanced chronic obstructive pulmonary disease, chronic hypoxia, end-stage chronic obstructive pulmonary disease. 6. Chronic pulmonary hypertension. 7. Chronic kidney disease. 8. Atherosclerotic heart disease. 9. Status post myocardial infarction. 10. Congestive heart failure. 11. Diabetes. 12. Hypertension. 13. Cerebrovascular accident. 14. Obstructive sleep apnea. PLAN: Antibiotics, supplemental O2 to maintain saturations 90% or greater, NIPPV as needed, inhaled bronchodilators, steroids, monitor electrolytes, renal function, obtain followup chest x-rays. SHAYY PALACIOS M.D. GERMAN/[id number]
--- NOTE | 2018-09-19 16:43 | PN ---
Progress Note (short form) - Note Progress Note: awake and alert desaturates easily with any effort comfortable in bed Vital Signs Period Temp Pulse Resp BP Sys/Meraz Pulse Ox Last 24 Hr 97.7 F-98.5 F 73-87 20-24 91-138/56-83 87-97 cor-rrr lungs clear abd soft,nt ext no edema 09/19/18 07:27 09/19/18 07:27 Microbiology 09/18/18 12:14 Blood - Peripheral Venous Blood Culture - Preliminary NO GROWTH OBTAINED AFTER 24 HOURS, INCUBATION TO CONTINUE FOR 4 DAYS. 09/18/18 12:14 Blood - Peripheral Venous Blood Culture - Preliminary NO GROWTH OBTAINED AFTER 24 HOURS, INCUBATION TO CONTINUE FOR 4 DAYS. 09/18/18 19:06 Sputum - Expectorated Gram Stain - Final a/p suspected aspiration pneumonia continue with zosyn to cover for aspiration d/w at length hospice arrangements being made
[2018-09-19] MEDS ORDERED: ALPRAZolam 0.25 MG TABLET PO PRN (17:22)
--- NOTE | 2018-09-19 17:22 | PN ---
Progress Note (short form) - Note Progress Note: Hospitalist to document today. The patient and family are agreeable with home hospice. He has been more anxious facing the reality of home hospice which he had initially resisted. On IV steroids and antibiotics. I will Rx with low dose Xanax prn for periods of increased anxiety.
--- NOTE | 2018-09-19 17:28 | PN ---
Progress Note, Physician Chief Complaint: Mr Dolan says he feels great today. No cp, sob at rest, or n/v. However still has the chronic severe sob with minimal movement. - Current Medication List Current Medications: Active Medications Acetaminophen (Tylenol -) 650 mg PO Q4H PRN PRN Reason: FEVER Albuterol Sulfate (Ventolin Hfa Inhaler -) 2 puff IH RQID [facility] Last Admin: 09/19/18 12:45 Dose: 2 puff Albuterol/Ipratropium (Duoneb -) 1 amp NEB Q6H PRN PRN Reason: Dyspnea Last Admin: 09/19/18 14:46 Dose: 1 amp Allopurinol (Zyloprim -) 50 mg PO DAILY [facility] Last Admin: 09/19/18 10:19 Dose: 50 mg Aspirin (Ecotrin -) 81 mg PO DAILY [facility] Last Admin: 09/19/18 10:19 Dose: 81 mg Atorvastatin Calcium (Lipitor -) 20 mg PO HS [facility] Last Admin: 09/18/18 21:26 Dose: 20 mg Clopidogrel Bisulfate (Plavix -) 75 mg PO DAILY [facility] Last Admin: 09/19/18 10:18 Dose: 75 mg Cyanocobalamin (Vitamin B12 -) 200 mcg PO DAILY [facility] Last Admin: 09/19/18 12:36 Dose: Not Given Ezetimibe (Zetia -) 10 mg PO DAILY [facility] Last Admin: 09/19/18 10:21 Dose: 10 mg Piperacillin Sod/Tazobactam (Sod 2.25 gm/ Dextrose) 50 mls @ 100 mls/hr IVPB Q6H-IV [facility]; Protocol Last Admin: 09/19/18 16:17 Dose: 100 mls/hr Sodium Chloride (Normal Saline -) 1,000 mls @ 50 mls/hr IV ASDIR [facility] Stop: 09/20/18 17:19 Insulin Aspart (Novolog Vial Sliding Scale -) 1 vial SQ ACHS [facility]; Protocol Last Admin: 09/19/18 12:39 Dose: 8 units Insulin Detemir (Levemir Vial) 10 units SQ BID [facility] Lactobacillus Acidophilus (Bacid -) 1 tab PO DAILY [facility] Last Admin: 09/19/18 10:19 Dose: 1 tab Methylprednisolone Sodium Succinate (Solu-Medrol -) 40 mg IVPUSH Q8H-IV [facility] Last Admin: 09/19/18 10:20 Dose: 40 mg Non-Formulary Medication (Glycopyrrolate/Formoterol Fum [Bevespi Aerosphere Inhaler]) 5.9 gm IH ASDIR [facility] Ondansetron HCl (Zofran Injection) 4 mg IVPUSH Q6H PRN PRN Reason: NAUSEA Pantoprazole Sodium (Protonix -) 40 mg PO DAILY [facility] Last Admin: 09/19/18 10:19 Dose: 40 mg Ranolazine (Ranexa -) 1,000 mg PO BID [facility] Last Admin: 09/19/18 10:20 Dose: 1,000 mg - Objective Vital Signs: Vital Signs Temperature 36.6 C 09/19/18 15:27 Pulse Rate 75 09/19/18 15:27 Respiratory Rate 20 09/19/18 15:27 Blood Pressure 138/83 09/19/18 15:27 O2 Sat by Pulse Oximetry (%) 97 09/18/18 21:00 Constitutional: Yes: Well Nourished, No Distress, Calm Cardiovascular: Yes: Regular Rate and Rhythm. No: Gallop, Murmur, Rub Respiratory: Yes: Regular, On Nasal O2, Poor Air Entry, Rhonchi. No: CTA Bilaterally, Rales, Wheezes Gastrointestinal: Yes: Normal Bowel Sounds, Soft. No: Distention, Tenderness Extremities: Yes: WNL Edema: No Labs: CBC, BMP 09/19/18 07:27 09/19/18 07:27 INR, PTT INR 1.16 (0.83-1.09) H 09/18/18 12:14 Problem List - Problems (1) Pneumonia Code(s): J18.9 - PNEUMONIA, UNSPECIFIED ORGANISM Qualifiers: Pneumonia type: due to unspecified organism Laterality: unspecified laterality Lung location: unspecified part of lung Qualified Code(s): J18.9 - Pneumonia, unspecified organism (2) Sepsis Code(s): A41.9 - SEPSIS, UNSPECIFIED ORGANISM (3) Acute and chronic respiratory failure with hypoxia Code(s): J96.21 - ACUTE AND CHRONIC RESPIRATORY FAILURE WITH HYPOXIA (4) Wbfwg-bl-usacnwd kidney injury Code(s): N17.9 - ACUTE KIDNEY FAILURE, UNSPECIFIED; N18.9 - CHRONIC KIDNEY DISEASE, UNSPECIFIED Qualifiers: Acute renal failure type: unspecified Chronic kidney disease stage: unspecified stage Qualified Code(s): N17.9 - Acute kidney failure, unspecified ; N18.9 - Chronic kidney disease, unspecified; N18.9 - Chronic kidney disease, unspecified (5) CAD (coronary artery disease) Code(s): I25.10 - ATHSCL HEART DISEASE OF [place] CORONARY ARTERY W/O ANG PCTRS Qualifiers: [place] vs. transplanted heart: [place] heart Associated angina: without angina (6) CHF (congestive heart failure), NYHA class III Code(s): I50.9 - HEART FAILURE, UNSPECIFIED Qualifiers: Congestive heart failure type: systolic Congestive heart failure chronicity : chronic Qualified Code(s): I50.22 - Chronic systolic (congestive) heart failure (7) COPD (chronic obstructive pulmonary disease) Code(s): J44.9 - CHRONIC OBSTRUCTIVE PULMONARY DISEASE, UNSPECIFIED (8) Diabetes mellitus Code(s): E11.9 - TYPE 2 DIABETES MELLITUS WITHOUT COMPLICATIONS Qualifiers: Diabetes mellitus type: type 2 Diabetes mellitus 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 Diabetes mellitus complication status: with kidney complications Diabetes mellitus complication detail: with chronic kidney disease Chronic kidney disease stage: stage 3 (moderate) Qualified Code(s): E11.22 - Type 2 diabetes mellitus with diabetic chronic kidney disease; N18.3 - Chronic kidney disease, stage 3 (moderate); 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 (9) Acute CVA (cerebrovascular accident) Code(s): I63.9 - CEREBRAL INFARCTION, UNSPECIFIED Assessment/Plan (1) Pneumonia Assessment/Plan: -case d/w Dr Colindres -continue zosyn -improving Code(s): J18.9 - PNEUMONIA, UNSPECIFIED ORGANISM Qualifiers: Pneumonia type: due to unspecified organism Laterality: unspecified laterality Lung location: unspecified part of lung Qualified Code(s): J18.9 - Pneumonia, unspecified organism (2) Sepsis Assessment/Plan: -secondary to infection and dehydration -continue antibiotics -trialled off of IVF but was not taking much in -continue IVF currently and holding diuretics Code(s): A41.9 - SEPSIS, UNSPECIFIED ORGANISM (3) Acute and chronic respiratory failure with hypoxia Assessment/Plan: -secondary to pneumonia and sepsis -continue oxygen support -appreciate pulmonary assistance Code(s): J96.21 - ACUTE AND CHRONIC RESPIRATORY FAILURE WITH HYPOXIA (4) Yctoz-yc-hescnyn kidney injury Assessment/Plan: -improving -continue IVF and holding lasix Code(s): N17.9 - ACUTE KIDNEY FAILURE, UNSPECIFIED; N18.9 - CHRONIC KIDNEY DISEASE, UNSPECIFIED Qualifiers: Acute renal failure type: unspecified Chronic kidney disease stage: unspecified stage Qualified Code(s): N17.9 - Acute kidney failure, unspecified ; N18.9 - Chronic kidney disease, unspecified; N18.9 - Chronic kidney disease, unspecified (5) CAD (coronary artery disease) Assessment/Plan: -continue to hold metoprolol currently -otherwise continue current regimen -if decides on hospice can simplify drug regimen -quiescent currently Code(s): I25.10 - ATHSCL HEART DISEASE OF [place] CORONARY ARTERY W/O ANG PCTRS Qualifiers: [place] vs. transplanted heart: [place] heart Associated angina: without angina (6) CHF (congestive heart failure), NYHA class III Assessment/Plan: -holding lasix and hydrating as above Code(s): I50.9 - HEART FAILURE, UNSPECIFIED Qualifiers: Congestive heart failure type: systolic Congestive heart failure chronicity : chronic Qualified Code(s): I50.22 - Chronic systolic (congestive) heart failure (7) COPD (chronic obstructive pulmonary disease) Assessment/Plan: -continue steroids and bronchodilators -oxygen support Code(s): J44.9 - CHRONIC OBSTRUCTIVE PULMONARY DISEASE, UNSPECIFIED (8) Diabetes mellitus Assessment/Plan: -FSBS and SSI -will also add low dose basal insulin while on steroids Code(s): E11.9 - TYPE 2 DIABETES MELLITUS WITHOUT COMPLICATIONS Qualifiers: Diabetes mellitus type: type 2 Diabetes mellitus 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: with 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 Diabetes mellitus complication status: with kidney complications Diabetes mellitus complication detail: with chronic kidney disease Chronic kidney disease stage: stage 3 (moderate) Qualified Code(s): E11.22 - Type 2 diabetes mellitus with diabetic chronic kidney disease; N18.3 - Chronic kidney disease, stage 3 (moderate); 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
[2018-09-19] MEDS ORDERED: SODIUM CHLORIDE 1,000 ML IV SCH (17:30)
[2018-09-19] MEDS: INSULIN (LEVEMIR) 100 UNITS/ML UNITS SQ SCH (21:49)
[2018-09-19] MEDS: ATORVASTATIN CA 20 MG TABLET (FP) PO SCH (21:50)
[2018-09-20] MEDS ORDERED: PIPERACILLIN/TAZOBACTAM 2.25 GM VIAL IVPB ONE ×4 (00:39→21:49)
[2018-09-20] MEDS ORDERED: DEXTROSE 5%-WATER - 50 ML IVPB ONE ×4 (00:39→21:50)
[2018-09-20] MEDS: methylPREDNISolone NA SUCC 40 MG/1 ML VIAL IVPUSH SCH ×3 (02:00→18:38)
[2018-09-20] MEDS: PIPERACILLIN/TAZOB 2.25 GM 2.25 GM in DEXTROSE 5%-WATER - 50 ML IVPB SCH ×4 (03:07→22:24)
[2018-09-20] MEDS: INSULIN (LEVEMIR) 100 UNITS/ML UNITS SQ SCH ×2 (06:57→23:00)
[2018-09-20] MEDS: INSULIN SLIDING SCALE (NOVOLOG) 1 VIAL SQ SCH ×4 (06:57→23:00)
[2018-09-20] MEDS ORDERED: INSULIN (NOVOLOG) ASPART 100 UNITS/ML 10ML VIAL ONE ×2 (07:10→17:33)
[2018-09-20 07:56] LABS: BASO % 0.2 % (0-2.0); HEMATOCRIT 34.8 % (35.4-49); HEMOGLOBIN 11.4 GM/dL (11.7-16.9); LYMPH % 3.5 % (8-40); MCH 28.4 pg (25.7-33.7); MCHC 32.8 g/dl (32.0-35.9); MEAN CELL VOLUME 86.4 fl (80-96); MEAN PLT VOLUME 8.2 fl (7.5-11.1); MONO % 3.8 % (3.8-10.2); NEUT % 92.5 % (42.8-82.8); PLATELET COUNT 161 K/MM3 (134-434); RBC 4.03 M/mm3 (4.00-5.60); RDW 18.1 % (11.9-15.9); WHITE BLOOD COUNT 11.1 K/mm3 (4.0-10.0)
[2018-09-20 07:57] LABS: BLOOD UREA NITROGEN 49.9 mg/dL (7-18); CALCIUM 8.6 mg/dL (8.5-10.1); CREATININE 2.5 mg/dL (0.55-1.3); MAGNESIUM 2.2 mg/dL (1.8-2.4); PHOSPHOROUS 3.8 mg/dL (2.5-4.9); POTASSIUM 4.9 mmol/L (3.5-5.1)
[2018-09-20] MEDS: ALBUTEROL SO4 8 GM HFA INHALER IH SCH ×3 (08:41→16:50)
[2018-09-20] MEDS ORDERED: RANOLAZINE E.R. 500 MG TABLET (FP) ONE ×2 (09:16→21:47)
[2018-09-20] MEDS ORDERED: PT OWN MED DRAWER 7, Y5N ONE ×2 (09:16→12:12)
[2018-09-20] MEDS: ASPIRIN COATED 81 MG TABLET.EC PO SCH (09:22)
[2018-09-20] MEDS: PANTOPRAZOLE 40 MG TABLET (FP) PO SCH ×2 (09:22→22:25)
[2018-09-20] MEDS: CLOPIDOGREL BISULFATE 75 MG TABLET (FP) PO SCH (09:22)
[2018-09-20] MEDS: ALLOPURINOL 100 MG TABLET (FP) PO SCH (09:22)
[2018-09-20] MEDS: LACTOBACILLUS ACIDOPHILUS 1 TABLET PO SCH (09:22)
[2018-09-20] MEDS: EZETIMIBE 10 MG TABLET (FP) PO SCH (09:23)
[2018-09-20] MEDS: RANOLAZINE E.R. 1,000 MG TABLET (FP) PO SCH ×2 (09:23→22:25)
[2018-09-20] MEDS: CYANOCOBALAMIN (VITAMIN B-12) 100 MCG TABLET PO SCH (09:24)
[2018-09-20 12:17] LABS: ANISOCYTOSIS 0; HELMET CELLS 0; HOWELL-JOLLY BODIES 0; MACROCYTOSIS 0; OVALOCYTE 0; ROULEAU 0; SICKELED CELLS 0; TARGET CELLS 0; TEAR DROP CELLS 0; TOXIC GRANULATION 0
[2018-09-20] MEDS ORDERED: INSULIN (NOVOLOG) ASPART 100 UNITS/ML 10ML VIAL SQ ONE (12:28)
[2018-09-20 12:45] LABS: PLATELET ESTIMATE ADEQUATE
--- NOTE | 2018-09-20 12:55 | PN ---
Progress Note, Physician History of Present Illness: pulmonary alert,dyspneic,on vm - Current Medication List Current Medications: Active Medications Acetaminophen (Tylenol -) 650 mg PO Q4H PRN PRN Reason: FEVER Albuterol Sulfate (Ventolin Hfa Inhaler -) 2 puff IH RQID [facility] Last Admin: 09/20/18 12:26 Dose: 2 puff Albuterol/Ipratropium (Duoneb -) 1 amp NEB Q6H PRN PRN Reason: Dyspnea Last Admin: 09/19/18 22:10 Dose: 1 amp Allopurinol (Zyloprim -) 50 mg PO DAILY [facility] Last Admin: 09/20/18 09:22 Dose: 50 mg Alprazolam (Xanax -) 0.25 mg PO Q12H PRN PRN Reason: ANXIETY Aspirin (Ecotrin -) 81 mg PO DAILY [facility] Last Admin: 09/20/18 09:22 Dose: 81 mg Atorvastatin Calcium (Lipitor -) 20 mg PO HS [facility] Last Admin: 09/19/18 21:50 Dose: 20 mg Clopidogrel Bisulfate (Plavix -) 75 mg PO DAILY [facility] Last Admin: 09/20/18 09:22 Dose: 75 mg Cyanocobalamin (Vitamin B12 -) 200 mcg PO DAILY [facility] Last Admin: 09/20/18 09:24 Dose: 200 mcg Ezetimibe (Zetia -) 10 mg PO DAILY [facility] Last Admin: 09/20/18 09:23 Dose: 10 mg Piperacillin Sod/Tazobactam (Sod 2.25 gm/ Dextrose) 50 mls @ 100 mls/hr IVPB Q6H-IV [facility]; Protocol Last Admin: 09/20/18 08:41 Dose: 100 mls/hr Sodium Chloride (Normal Saline -) 1,000 mls @ 50 mls/hr IV ASDIR [facility] Stop: 09/20/18 17:19 Last Admin: 09/19/18 17:43 Dose: 50 mls/hr Insulin Aspart (Novolog Vial Sliding Scale -) 1 vial SQ ACHS [facility]; Protocol Last Admin: 09/20/18 12:30 Dose: Not Given Insulin Detemir (Levemir Vial) 10 units SQ BID@0700,2200 [facility] Last Admin: 09/20/18 06:57 Dose: 10 units Lactobacillus Acidophilus (Bacid -) 1 tab PO DAILY [facility] Last Admin: 09/20/18 09:22 Dose: 1 tab Methylprednisolone Sodium Succinate (Solu-Medrol -) 40 mg IVPUSH Q8H-IV [facility] Last Admin: 09/20/18 10:32 Dose: 40 mg Non-Formulary Medication (Glycopyrrolate/Formoterol Fum [Bevespi Aerosphere Inhaler]) 5.9 gm IH ASDIR [facility] Ondansetron HCl (Zofran Injection) 4 mg IVPUSH Q6H PRN PRN Reason: NAUSEA Pantoprazole Sodium (Protonix -) 40 mg PO DAILY [facility] Last Admin: 09/20/18 09:22 Dose: 40 mg Ranolazine (Ranexa -) 1,000 mg PO BID [facility] Last Admin: 09/20/18 09:23 Dose: 1,000 mg - Objective Vital Signs: Vital Signs Temperature 97.3 F L 09/20/18 02:00 Pulse Rate 77 09/20/18 09:17 Respiratory Rate 22 H 09/20/18 09:17 Blood Pressure 124/70 09/20/18 09:17 O2 Sat by Pulse Oximetry (%) 98 09/19/18 21:00 Constitutional: Yes: Well Nourished, Calm, Other (mildly dyspneic) Eyes: Yes: WNL HENT: Yes: WNL Neck: Yes: WNL Cardiovascular: Yes: Regular Rate and Rhythm, S1, S2 Respiratory: Yes: Rales (bilateral crackles) Gastrointestinal: Yes: Normal Bowel Sounds, Soft Extremities: Yes: WNL Edema: No Labs: CBC, BMP 09/20/18 06:30 09/20/18 06:30 INR, PTT INR 1.16 (0.83-1.09) H 09/18/18 12:14 Problem List - Problems (1) Pneumonia Code(s): J18.9 - PNEUMONIA, UNSPECIFIED ORGANISM Qualifiers: Pneumonia type: due to unspecified organism Laterality: unspecified laterality Lung location: unspecified part of lung Qualified Code(s): J18.9 - Pneumonia, unspecified organism (2) Acute and chronic respiratory failure Code(s): J96.20 - ACUTE AND CHR RESP FAILURE, UNSP W HYPOXIA OR HYPERCAPNIA Qualifiers: (3) Acute and chronic respiratory failure with hypoxia Code(s): J96.21 - ACUTE AND CHRONIC RESPIRATORY FAILURE WITH HYPOXIA (4) Dvlln-zj-fuctsgx kidney injury Code(s): N17.9 - ACUTE KIDNEY FAILURE, UNSPECIFIED; N18.9 - CHRONIC KIDNEY DISEASE, UNSPECIFIED Qualifiers: Acute renal failure type: unspecified Chronic kidney disease stage: unspecified stage Qualified Code(s): N17.9 - Acute kidney failure, unspecified ; N18.9 - Chronic kidney disease, unspecified; N18.9 - Chronic kidney disease, unspecified (5) CAD (coronary artery disease) Code(s): I25.10 - ATHSCL HEART DISEASE OF [place] CORONARY ARTERY W/O ANG PCTRS Qualifiers: [place] vs. transplanted heart: [place] heart Associated angina: without angina (6) CHF (congestive heart failure), NYHA class III Code(s): I50.9 - HEART FAILURE, UNSPECIFIED Qualifiers: Congestive heart failure type: systolic Congestive heart failure chronicity : chronic Qualified Code(s): I50.22 - Chronic systolic (congestive) heart failure (7) CKD (chronic kidney disease) stage 3, GFR 30-59 ml/min Code(s): N18.3 - CHRONIC KIDNEY DISEASE, STAGE 3 (MODERATE) (8) COPD (chronic obstructive pulmonary disease) Code(s): J44.9 - CHRONIC OBSTRUCTIVE PULMONARY DISEASE, UNSPECIFIED (9) Diabetes mellitus type 2 in nonobese Code(s): E11.9 - TYPE 2 DIABETES MELLITUS WITHOUT COMPLICATIONS (10) Dizziness Code(s): R42 - DIZZINESS AND GIDDINESS (11) HTN (hypertension) Code(s): I10 - ESSENTIAL (PRIMARY) HYPERTENSION Qualifiers: Hypertension type: essential hypertension Qualified Code(s): I10 - Essential (primary) hypertension (12) Pulmonary fibrosis Code(s): J84.10 - PULMONARY FIBROSIS, UNSPECIFIED (13) Sleep apnea Code(s): G47.30 - SLEEP APNEA, UNSPECIFIED (14) Acute CVA (cerebrovascular accident) Code(s): I63.9 - CEREBRAL INFARCTION, UNSPECIFIED (15) BPH (benign prostatic hyperplasia) Code(s): N40.0 - BENIGN PROSTATIC HYPERPLASIA WITHOUT LOWER URINRY TRACT SYMP Qualifiers: Lower urinary tract symptom presence: symptoms absent Qualified Code(s): N40.0 - Benign prostatic hyperplasia without lower urinary tract symptoms Assessment/Plan IMP ACUTE ON CHRONIC HYPOXEMIC RESPIRATORY FAILURE END STAGE ILD PNEUMONIA END STAGE COPD PULMONARY HTN CKD ASHD CHF DM HTN CVA SHANTI PLAN ABX O2 TO MAINTAIN O2 SAT 90% OR GREATER NIPPV NEEDED IF PT COMPLIES INHALED BRONCHODILATORS STEROIDS MONITOR LYTES,RENAL FUNCTION F/U CHEST X-RAYS DR PALACIOS Problem List - Problems (1) Pneumonia Code(s): J18.9 - PNEUMONIA, UNSPECIFIED ORGANISM Qualifiers: Pneumonia type: due to unspecified organism Laterality: unspecified laterality Lung location: unspecified part of lung Qualified Code(s): J18.9 - Pneumonia, unspecified organism (2) Acute and chronic respiratory failure Code(s): J96.20 - ACUTE AND CHR RESP FAILURE, UNSP W HYPOXIA OR HYPERCAPNIA Qualifiers: (3) Acute and chronic respiratory failure with hypoxia Code(s): J96.21 - ACUTE AND CHRONIC RESPIRATORY FAILURE WITH HYPOXIA (4) Edywb-ve-brpstmm kidney injury Code(s): N17.9 - ACUTE KIDNEY FAILURE, UNSPECIFIED; N18.9 - CHRONIC KIDNEY DISEASE, UNSPECIFIED Qualifiers: Acute renal failure type: unspecified Chronic kidney disease stage: unspecified stage Qualified Code(s): N17.9 - Acute kidney failure, unspecified ; N18.9 - Chronic kidney disease, unspecified; N18.9 - Chronic kidney disease, unspecified (5) CAD (coronary artery disease) Code(s): I25.10 - ATHSCL HEART DISEASE OF [place] CORONARY ARTERY W/O ANG PCTRS Qualifiers: [place] vs. transplanted heart: [place] heart Associated angina: without angina (6) CHF (congestive heart failure), NYHA class III Code(s): I50.9 - HEART FAILURE, UNSPECIFIED Qualifiers: Congestive heart failure type: systolic Congestive heart failure chronicity : chronic Qualified Code(s): I50.22 - Chronic systolic (congestive) heart failure (7) CKD (chronic kidney disease) stage 3, GFR 30-59 ml/min Code(s): N18.3 - CHRONIC KIDNEY DISEASE, STAGE 3 (MODERATE) (8) COPD (chronic obstructive pulmonary disease) Code(s): J44.9 - CHRONIC OBSTRUCTIVE PULMONARY DISEASE, UNSPECIFIED (9) Diabetes mellitus type 2 in nonobese Code(s): E11.9 - TYPE 2 DIABETES MELLITUS WITHOUT COMPLICATIONS (10) Dizziness Code(s): R42 - DIZZINESS AND GIDDINESS (11) HTN (hypertension) Code(s): I10 - ESSENTIAL (PRIMARY) HYPERTENSION Qualifiers: Hypertension type: essential hypertension Qualified Code(s): I10 - Essential (primary) hypertension (12) Pulmonary fibrosis Code(s): J84.10 - PULMONARY FIBROSIS, UNSPECIFIED (13) Sleep apnea Code(s): G47.30 - SLEEP APNEA, UNSPECIFIED (14) Acute CVA (cerebrovascular accident) Code(s): I63.9 - CEREBRAL INFARCTION, UNSPECIFIED (15) BPH (benign prostatic hyperplasia) Code(s): N40.0 - BENIGN PROSTATIC HYPERPLASIA WITHOUT LOWER URINRY TRACT SYMP Qualifiers: Lower urinary tract symptom presence: symptoms absent Qualified Code(s): N40.0 - Benign prostatic hyperplasia without lower urinary tract symptoms
[2018-09-20] MEDS ORDERED: SIMETHICONE 80 MG TAB.CHEW (FP) PO PRN (13:09)
[2018-09-20] MEDS: POLYETHYLENE GLYCOL 3350 119 GM BTL PO SCH ×2 (14:25→22:00)
[2018-09-20] MEDS: DOCUSATE SODIUM 100 MG CAPSULE (FP) PO SCH ×2 (14:25→22:25)
--- NOTE | 2018-09-20 16:52 | PN ---
Progress Note, Physician Chief Complaint: Mr Dolan says he feels good but is constipated. Also notes reflux and dry cough. No sob at rest but manzano with minimal exertion. No cp or n/v. - Current Medication List Current Medications: Active Medications Acetaminophen (Tylenol -) 650 mg PO Q4H PRN PRN Reason: FEVER Albuterol Sulfate (Ventolin Hfa Inhaler -) 2 puff IH RQID COUNTS INCLUDE 234 BEDS AT THE [facility] Last Admin: 09/20/18 16:50 Dose: 2 puff Albuterol/Ipratropium (Duoneb -) 1 amp NEB Q6H PRN PRN Reason: Dyspnea Last Admin: 09/19/18 22:10 Dose: 1 amp Allopurinol (Zyloprim -) 50 mg PO DAILY COUNTS INCLUDE 234 BEDS AT THE [facility] Last Admin: 09/20/18 09:22 Dose: 50 mg Alprazolam (Xanax -) 0.25 mg PO Q12H PRN PRN Reason: ANXIETY Aspirin (Ecotrin -) 81 mg PO DAILY COUNTS INCLUDE 234 BEDS AT THE [facility] Last Admin: 09/20/18 09:22 Dose: 81 mg Atorvastatin Calcium (Lipitor -) 20 mg PO HS COUNTS INCLUDE 234 BEDS AT THE [facility] Last Admin: 09/19/18 21:50 Dose: 20 mg Clopidogrel Bisulfate (Plavix -) 75 mg PO DAILY COUNTS INCLUDE 234 BEDS AT THE [facility] Last Admin: 09/20/18 09:22 Dose: 75 mg Cyanocobalamin (Vitamin B12 -) 200 mcg PO DAILY COUNTS INCLUDE 234 BEDS AT THE [facility] Last Admin: 09/20/18 09:24 Dose: 200 mcg Docusate Sodium (Colace -) 100 mg PO BID COUNTS INCLUDE 234 BEDS AT THE [facility] Last Admin: 09/20/18 14:25 Dose: 100 mg Ezetimibe (Zetia -) 10 mg PO DAILY COUNTS INCLUDE 234 BEDS AT THE [facility] Last Admin: 09/20/18 09:23 Dose: 10 mg Piperacillin Sod/Tazobactam (Sod 2.25 gm/ Dextrose) 50 mls @ 100 mls/hr IVPB Q6H-IV [facility]; Protocol Last Admin: 09/20/18 15:53 Dose: 100 mls/hr Sodium Chloride (Normal Saline -) 1,000 mls @ 50 mls/hr IV [facility] [place] Stop: 09/20/18 17:19 Last Admin: 09/19/18 17:43 Dose: 50 mls/hr Insulin Aspart (Novolog Vial Sliding Scale -) 1 vial SQ ACHS COUNTS INCLUDE 234 BEDS AT THE [facility]; Protocol Last Admin: 09/20/18 12:30 Dose: Not Given Insulin Detemir (Levemir Vial) 10 units SQ BID@0700,2200 COUNTS INCLUDE 234 BEDS AT THE [facility] Last Admin: 09/20/18 06:57 Dose: 10 units Lactobacillus Acidophilus (Bacid -) 1 tab PO DAILY COUNTS INCLUDE 234 BEDS AT THE [facility] Last Admin: 09/20/18 09:22 Dose: 1 tab Methylprednisolone Sodium Succinate (Solu-Medrol -) 40 mg IVPUSH Q8H-IV COUNTS INCLUDE 234 BEDS AT THE [facility] Last Admin: 09/20/18 10:32 Dose: 40 mg Non-Formulary Medication (Glycopyrrolate/Formoterol Fum [Bevespi Aerosphere Inhaler]) 5.9 gm IH ASDIR COUNTS INCLUDE 234 BEDS AT THE [facility] Ondansetron HCl (Zofran Injection) 4 mg IVPUSH Q6H PRN PRN Reason: NAUSEA Pantoprazole Sodium (Protonix -) 40 mg PO BID COUNTS INCLUDE 234 BEDS AT THE [facility] Polyethylene Glycol (Miralax (For Daily Use) -) 17 gm PO BID COUNTS INCLUDE 234 BEDS AT THE [facility] Last Admin: 09/20/18 14:25 Dose: 17 grams Ranolazine (Ranexa -) 1,000 mg PO BID COUNTS INCLUDE 234 BEDS AT THE [facility] Last Admin: 09/20/18 09:23 Dose: 1,000 mg Simethicone (Mylicon -) 80 mg PO QID PRN PRN Reason: DYSPEPSIA - Objective Vital Signs: Vital Signs Temperature 36.6 C 09/20/18 15:00 Pulse Rate 89 09/20/18 14:56 Respiratory Rate 24 H 09/20/18 14:56 Blood Pressure 154/80 09/20/18 14:56 O2 Sat by Pulse Oximetry (%) 98 09/19/18 21:00 Constitutional: Yes: Well Nourished, No Distress, Calm Cardiovascular: Yes: Regular Rate and Rhythm. No: Gallop, Murmur, Rub Respiratory: Yes: Regular, On Nasal O2, Rales. No: CTA Bilaterally, Rhonchi, Wheezes Gastrointestinal: Yes: Normal Bowel Sounds, Soft. No: Distention, Tenderness Extremities: Yes: WNL Edema: No Labs: CBC, BMP 09/20/18 06:30 09/20/18 06:30 INR, PTT INR 1.16 (0.83-1.09) H 09/18/18 12:14 Problem List - Problems (1) Pneumonia Code(s): J18.9 - PNEUMONIA, UNSPECIFIED ORGANISM Qualifiers: Pneumonia type: due to unspecified organism Laterality: unspecified laterality Lung location: unspecified part of lung Qualified Code(s): J18.9 - Pneumonia, unspecified organism (2) Sepsis Code(s): A41.9 - SEPSIS, UNSPECIFIED ORGANISM (3) Acute and chronic respiratory failure with hypoxia Code(s): J96.21 - ACUTE AND CHRONIC RESPIRATORY FAILURE WITH HYPOXIA (4) [id number] kidney injury Code(s): N17.9 - ACUTE KIDNEY FAILURE, UNSPECIFIED; N18.9 - CHRONIC KIDNEY DISEASE, UNSPECIFIED Qualifiers: Acute renal failure type: unspecified Chronic kidney disease stage: unspecified stage Qualified Code(s): N17.9 - Acute kidney failure, unspecified ; N18.9 - Chronic kidney disease, unspecified; N18.9 - Chronic kidney disease, unspecified (5) CAD (coronary artery disease) Code(s): I25.10 - ATHSCL HEART DISEASE OF [place] CORONARY ARTERY W/O ANG PCTRS Qualifiers: [place] vs. transplanted heart: [place] heart Associated angina: without angina (6) CHF (congestive heart failure), NYHA class III Code(s): I50.9 - HEART FAILURE, UNSPECIFIED Qualifiers: Congestive heart failure type: systolic Congestive heart failure chronicity : chronic Qualified Code(s): I50.22 - Chronic systolic (congestive) heart failure (7) COPD (chronic obstructive pulmonary disease) Code(s): J44.9 - CHRONIC OBSTRUCTIVE PULMONARY DISEASE, UNSPECIFIED (8) Diabetes mellitus Code(s): E11.9 - TYPE 2 DIABETES MELLITUS WITHOUT COMPLICATIONS Qualifiers: Diabetes mellitus type: type 2 Diabetes mellitus group home insulin use: with group home use Diabetes mellitus complication status: with kidney complications Diabetes mellitus complication detail: with chronic kidney disease Chronic kidney disease stage: stage 3 (moderate) Qualified Code(s): E11.22 - Type 2 diabetes mellitus with diabetic chronic kidney disease; N18.3 - Chronic kidney disease, stage 3 (moderate); 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 (9) Acute CVA (cerebrovascular accident) Code(s): I63.9 - CEREBRAL INFARCTION, UNSPECIFIED Assessment/Plan (1) Pneumonia Assessment/Plan: -continue zosyn -patient appears improved Code(s): J18.9 - PNEUMONIA, UNSPECIFIED ORGANISM Qualifiers: Pneumonia type: due to unspecified organism Laterality: unspecified laterality Lung location: unspecified part of lung Qualified Code(s): J18.9 - Pneumonia, unspecified organism (2) Sepsis Assessment/Plan: -resolved Code(s): A41.9 - SEPSIS, UNSPECIFIED ORGANISM (3) Acute and chronic respiratory failure with hypoxia Assessment/Plan: -secondary to pneumonia and sepsis -continue oxygen support -appreciate pulmonary assistance Code(s): J96.21 - ACUTE AND CHRONIC RESPIRATORY FAILURE WITH HYPOXIA (4) Wqpxx-rn-iasqowc kidney injury Assessment/Plan: -improving -IVF stopped -holding lasix Code(s): N17.9 - ACUTE KIDNEY FAILURE, UNSPECIFIED; N18.9 - CHRONIC KIDNEY DISEASE, UNSPECIFIED Qualifiers: Acute renal failure type: unspecified Chronic kidney disease stage: unspecified stage Qualified Code(s): N17.9 - Acute kidney failure, unspecified ; N18.9 - Chronic kidney disease, unspecified; N18.9 - Chronic kidney disease, unspecified (5) CAD (coronary artery disease) Assessment/Plan: -continue to hold metoprolol currently -otherwise continue current regimen -if decides on hospice can simplify drug regimen -quiescent currently Code(s): I25.10 - ATHSCL HEART DISEASE OF [place] CORONARY ARTERY W/O ANG PCTRS Qualifiers: [place] vs. transplanted heart: [place] heart Associated angina: without angina (6) CHF (congestive heart failure), NYHA class III Assessment/Plan: -holding lasix -stable Code(s): I50.9 - HEART FAILURE, UNSPECIFIED Qualifiers: Congestive heart failure type: systolic Congestive heart failure chronicity : chronic Qualified Code(s): I50.22 - Chronic systolic (congestive) heart failure (7) COPD (chronic obstructive pulmonary disease) Assessment/Plan: -continue steroids and bronchodilators -oxygen support Code(s): J44.9 - CHRONIC OBSTRUCTIVE PULMONARY DISEASE, UNSPECIFIED (8) Diabetes mellitus Assessment/Plan: -FSBS and SSI -will increase levemir for better control while on steroids Code(s): E11.9 - TYPE 2 DIABETES MELLITUS WITHOUT COMPLICATIONS Qualifiers: Diabetes mellitus type: type 2 Diabetes 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 Diabetes mellitus complication status: with kidney complications Diabetes mellitus complication detail: with chronic kidney disease Chronic kidney disease stage: stage 3 (moderate) Qualified Code(s): E11.22 - Type 2 diabetes mellitus with diabetic chronic kidney disease; N18.3 - Chronic kidney disease, stage 3 (moderate); Z79.4 - 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
[2018-09-20] MEDS: ALBUTEROL SO4 2.5/IPRATROPIUM 0.5 INH SOL 3 ML VIAL.NEB. NEB PRN (20:30)
[2018-09-20] MEDS: ATORVASTATIN CA 20 MG TABLET (FP) PO SCH (23:00)
[2018-09-21] MEDS ORDERED: DEXTROSE 5%-WATER - 50 ML IVPB ONE ×4 (02:00→21:29)
[2018-09-21] MEDS ORDERED: PIPERACILLIN/TAZOBACTAM 2.25 GM VIAL IVPB ONE ×4 (02:00→21:29)
[2018-09-21] MEDS: methylPREDNISolone NA SUCC 40 MG/1 ML VIAL IVPUSH SCH ×3 (02:11→18:54)
[2018-09-21] MEDS: PIPERACILLIN/TAZOB 2.25 GM 2.25 GM in DEXTROSE 5%-WATER - 50 ML IVPB SCH ×4 (02:12→22:30)
[2018-09-21] MEDS: INSULIN SLIDING SCALE (NOVOLOG) 1 VIAL SQ SCH ×4 (06:37→22:36)
[2018-09-21] MEDS: INSULIN (LEVEMIR) 100 UNITS/ML UNITS SQ SCH ×2 (06:37→22:36)
[2018-09-21 08:22] LABS: BASO % 0.2 % (0-2.0); HEMATOCRIT 35.4 % (35.4-49); HEMOGLOBIN 11.9 GM/dL (11.7-16.9); LYMPH % 3.6 % (8-40); MCH 28.6 pg (25.7-33.7); MCHC 33.7 g/dl (32.0-35.9); MEAN CELL VOLUME 84.9 fl (80-96); MEAN PLT VOLUME 8.1 fl (7.5-11.1); MONO % 3.5 % (3.8-10.2); NEUT % 92.7 % (42.8-82.8); PLATELET COUNT 161 K/MM3 (134-434); RBC 4.17 M/mm3 (4.00-5.60); RDW 18.3 % (11.9-15.9)
[2018-09-21 08:40] LABS: BLOOD UREA NITROGEN 54.7 mg/dL (7-18); CALCIUM 8.7 mg/dL (8.5-10.1); CREATININE 2.4 mg/dL (0.55-1.3); MAGNESIUM 2.1 mg/dL (1.8-2.4); PHOSPHOROUS 4.3 mg/dL (2.5-4.9); POTASSIUM 4.6 mmol/L (3.5-5.1)
[2018-09-21] MEDS: ALBUTEROL SO4 8 GM HFA INHALER IH SCH (08:46)
[2018-09-21] MEDS: ALBUTEROL SO4 2.5/IPRATROPIUM 0.5 INH SOL 3 ML VIAL.NEB. NEB PRN (08:51)
[2018-09-21] MEDS ORDERED: PT OWN MED DRAWER 7, Y5N ONE ×2 (09:46→09:54)
[2018-09-21] MEDS ORDERED: RANOLAZINE E.R. 500 MG TABLET (FP) ONE ×2 (09:46→21:28)
[2018-09-21] MEDS: metoPROLOL SUCCINATE 25 MG TAB.SR.24H (FP) PO SCH (09:48)
[2018-09-21] MEDS: DOCUSATE SODIUM 100 MG CAPSULE (FP) PO SCH ×2 (09:48→22:30)
[2018-09-21] MEDS: LACTOBACILLUS ACIDOPHILUS 1 TABLET PO SCH (09:48)
[2018-09-21] MEDS: CLOPIDOGREL BISULFATE 75 MG TABLET (FP) PO SCH (09:49)
[2018-09-21] MEDS: ASPIRIN COATED 81 MG TABLET.EC PO SCH (09:49)
[2018-09-21] MEDS: PANTOPRAZOLE 40 MG TABLET (FP) PO SCH ×2 (09:49→22:30)
[2018-09-21] MEDS: ALLOPURINOL 100 MG TABLET (FP) PO SCH (09:49)
[2018-09-21] MEDS: CYANOCOBALAMIN (VITAMIN B-12) 100 MCG TABLET PO SCH (09:50)
[2018-09-21] MEDS: RANOLAZINE E.R. 1,000 MG TABLET (FP) PO SCH ×2 (09:50→22:31)
[2018-09-21] MEDS: EZETIMIBE 10 MG TABLET (FP) PO SCH (09:51)
--- NOTE | 2018-09-21 09:51 | PN ---
Progress Note, Physician History of Present Illness: pulmonary alert,feeling better on vm,less dyspneic - Current Medication List Current Medications: Active Medications Acetaminophen (Tylenol -) 650 mg PO Q4H PRN PRN Reason: FEVER Albuterol Sulfate (Ventolin Hfa Inhaler -) 2 puff IH RQID [facility] Last Admin: 09/21/18 08:46 Dose: Not Given Albuterol/Ipratropium (Duoneb -) 1 amp NEB Q6H PRN PRN Reason: Dyspnea Last Admin: 09/21/18 08:51 Dose: 1 amp Allopurinol (Zyloprim -) 50 mg PO DAILY [facility] Last Admin: 09/20/18 09:22 Dose: 50 mg Alprazolam (Xanax -) 0.25 mg PO Q12H PRN PRN Reason: ANXIETY Aspirin (Ecotrin -) 81 mg PO DAILY [facility] Last Admin: 09/20/18 09:22 Dose: 81 mg Atorvastatin Calcium (Lipitor -) 20 mg PO HS [facility] Last Admin: 09/20/18 23:00 Dose: 20 mg Clopidogrel Bisulfate (Plavix -) 75 mg PO DAILY [facility] Last Admin: 09/20/18 09:22 Dose: 75 mg Cyanocobalamin (Vitamin B12 -) 200 mcg PO DAILY [facility] Last Admin: 09/20/18 09:24 Dose: 200 mcg Docusate Sodium (Colace -) 100 mg PO BID [facility] Last Admin: 09/20/18 22:25 Dose: 100 mg Ezetimibe (Zetia -) 10 mg PO DAILY [facility] Last Admin: 09/20/18 09:23 Dose: 10 mg Piperacillin Sod/Tazobactam (Sod 2.25 gm/ Dextrose) 50 mls @ 100 mls/hr IVPB Q6H-IV [facility]; Protocol Last Admin: 09/21/18 02:12 Dose: 100 mls/hr Insulin Aspart (Novolog Vial Sliding Scale -) 1 vial SQ ACHS [facility]; Protocol Last Admin: 09/21/18 06:37 Dose: 6 units Insulin Detemir (Levemir Vial) 20 units SQ BID@0700,2200 [facility] Last Admin: 09/21/18 06:37 Dose: 20 units Lactobacillus Acidophilus (Bacid -) 1 tab PO DAILY [facility] Last Admin: 09/20/18 09:22 Dose: 1 tab Methylprednisolone Sodium Succinate (Solu-Medrol -) 40 mg IVPUSH Q8H-IV [facility] Last Admin: 09/21/18 02:11 Dose: 40 mg Metoprolol Succinate (Toprol Xl -) 25 mg PO DAILY [facility] Non-Formulary Medication (Glycopyrrolate/Formoterol Fum [Bevespi Aerosphere Inhaler]) 5.9 gm IH ASDIR [facility] Ondansetron HCl (Zofran Injection) 4 mg IVPUSH Q6H PRN PRN Reason: NAUSEA Pantoprazole Sodium (Protonix -) 40 mg PO BID [facility] Last Admin: 09/20/18 22:25 Dose: 40 mg Polyethylene Glycol (Miralax (For Daily Use) -) 17 gm PO BID [facility] Last Admin: 09/20/18 22:00 Dose: Not Given Ranolazine (Ranexa -) 1,000 mg PO BID [facility] Last Admin: 09/20/18 22:25 Dose: 1,000 mg Simethicone (Mylicon -) 80 mg PO QID PRN PRN Reason: DYSPEPSIA - Objective Vital Signs: Vital Signs Temperature 97.4 F L 09/21/18 09:30 Pulse Rate 81 09/21/18 09:30 Respiratory Rate 22 H 09/21/18 09:30 Blood Pressure 130/96 09/21/18 09:30 O2 Sat by Pulse Oximetry (%) 97 09/20/18 21:00 Constitutional: Yes: Well Nourished, Calm Eyes: Yes: WNL HENT: Yes: WNL Neck: Yes: WNL Cardiovascular: Yes: Regular Rate and Rhythm, S1, S2 Respiratory: Yes: Rales (yolande crackles) Gastrointestinal: Yes: Normal Bowel Sounds, Soft Extremities: Yes: WNL Edema: No Labs: CBC, BMP 09/21/18 07:00 09/21/18 07:00 INR, PTT INR 1.16 (0.83-1.09) H 09/18/18 12:14 Problem List - Problems (1) Pneumonia Code(s): J18.9 - PNEUMONIA, UNSPECIFIED ORGANISM Qualifiers: Pneumonia type: due to unspecified organism Laterality: unspecified laterality Lung location: unspecified part of lung Qualified Code(s): J18.9 - Pneumonia, unspecified organism (2) Acute and chronic respiratory failure Code(s): J96.20 - ACUTE AND CHR RESP FAILURE, UNSP W HYPOXIA OR HYPERCAPNIA Qualifiers: (3) Acute and chronic respiratory failure with hypoxia Code(s): J96.21 - ACUTE AND CHRONIC RESPIRATORY FAILURE WITH HYPOXIA (4) Cuyuu-kx-efsygzf kidney injury Code(s): N17.9 - ACUTE KIDNEY FAILURE, UNSPECIFIED; N18.9 - CHRONIC KIDNEY DISEASE, UNSPECIFIED Qualifiers: Acute renal failure type: unspecified Chronic kidney disease stage: unspecified stage Qualified Code(s): N17.9 - Acute kidney failure, unspecified ; N18.9 - Chronic kidney disease, unspecified; N18.9 - Chronic kidney disease, unspecified (5) CAD (coronary artery disease) Code(s): I25.10 - ATHSCL HEART DISEASE OF [place] CORONARY ARTERY W/O ANG PCTRS Qualifiers: [place] vs. transplanted heart: [place] heart Associated angina: without angina (6) CHF (congestive heart failure), NYHA class III Code(s): I50.9 - HEART FAILURE, UNSPECIFIED Qualifiers: Congestive heart failure type: systolic Congestive heart failure chronicity : chronic Qualified Code(s): I50.22 - Chronic systolic (congestive) heart failure (7) CKD (chronic kidney disease) stage 3, GFR 30-59 ml/min Code(s): N18.3 - CHRONIC KIDNEY DISEASE, STAGE 3 (MODERATE) (8) COPD (chronic obstructive pulmonary disease) Code(s): J44.9 - CHRONIC OBSTRUCTIVE PULMONARY DISEASE, UNSPECIFIED (9) Diabetes mellitus type 2 in nonobese Code(s): E11.9 - TYPE 2 DIABETES MELLITUS WITHOUT COMPLICATIONS (10) Dizziness Code(s): R42 - DIZZINESS AND GIDDINESS (11) HTN (hypertension) Code(s): I10 - ESSENTIAL (PRIMARY) HYPERTENSION Qualifiers: Hypertension type: essential hypertension Qualified Code(s): I10 - Essential (primary) hypertension (12) Pulmonary fibrosis Code(s): J84.10 - PULMONARY FIBROSIS, UNSPECIFIED (13) Sleep apnea Code(s): G47.30 - SLEEP APNEA, UNSPECIFIED (14) Acute CVA (cerebrovascular accident) Code(s): I63.9 - CEREBRAL INFARCTION, UNSPECIFIED (15) BPH (benign prostatic hyperplasia) Code(s): N40.0 - BENIGN PROSTATIC HYPERPLASIA WITHOUT LOWER URINRY TRACT SYMP Qualifiers: Lower urinary tract symptom presence: symptoms absent Qualified Code(s): N40.0 - Benign prostatic hyperplasia without lower urinary tract symptoms Assessment/Plan IMP ACUTE ON CHRONIC HYPOXEMIC RESPIRATORY FAILURE END STAGE ILD PNEUMONIA END STAGE COPD PULMONARY HTN CKD ASHD CHF DM HTN CVA SHANTI PLAN ABX O2 TO MAINTAIN O2 SAT 90% OR GREATER NIPPV NEEDED IF PT COMPLIES INHALED BRONCHODILATORS STEROIDS MONITOR LYTES,RENAL FUNCTION F/U CHEST X-RAYS DR PALACIOS Problem List - Problems (1) Pneumonia Code(s): J18.9 - PNEUMONIA, UNSPECIFIED ORGANISM Qualifiers: Pneumonia type: due to unspecified organism Laterality: unspecified laterality Lung location: unspecified part of lung Qualified Code(s): J18.9 - Pneumonia, unspecified organism (2) Acute and chronic respiratory failure Code(s): J96.20 - ACUTE AND CHR RESP FAILURE, UNSP W HYPOXIA OR HYPERCAPNIA Qualifiers: (3) Acute and chronic respiratory failure with hypoxia Code(s): J96.21 - ACUTE AND CHRONIC RESPIRATORY FAILURE WITH HYPOXIA (4) Yjngd-oi-qxtmvqh kidney injury Code(s): N17.9 - ACUTE KIDNEY FAILURE, UNSPECIFIED; N18.9 - CHRONIC KIDNEY DISEASE, UNSPECIFIED Qualifiers: Acute renal failure type: unspecified Chronic kidney disease stage: unspecified stage Qualified Code(s): N17.9 - Acute kidney failure, unspecified ; N18.9 - Chronic kidney disease, unspecified; N18.9 - Chronic kidney disease, unspecified (5) CAD (coronary artery disease) Code(s): I25.10 - ATHSCL HEART DISEASE OF [place] CORONARY ARTERY W/O ANG PCTRS Qualifiers: [place] vs. transplanted heart: [place] heart Associated angina: without angina (6) CHF (congestive heart failure), NYHA class III Code(s): I50.9 - HEART FAILURE, UNSPECIFIED Qualifiers: Congestive heart failure type: systolic Congestive heart failure chronicity : chronic Qualified Code(s): I50.22 - Chronic systolic (congestive) heart failure (7) CKD (chronic kidney disease) stage 3, GFR 30-59 ml/min Code(s): N18.3 - CHRONIC KIDNEY DISEASE, STAGE 3 (MODERATE) (8) COPD (chronic obstructive pulmonary disease) Code(s): J44.9 - CHRONIC OBSTRUCTIVE PULMONARY DISEASE, UNSPECIFIED (9) Diabetes mellitus type 2 in nonobese Code(s): E11.9 - TYPE 2 DIABETES MELLITUS WITHOUT COMPLICATIONS (10) Dizziness Code(s): R42 - DIZZINESS AND GIDDINESS (11) HTN (hypertension) Code(s): I10 - ESSENTIAL (PRIMARY) HYPERTENSION Qualifiers: Hypertension type: essential hypertension Qualified Code(s): I10 - Essential (primary) hypertension (12) Pulmonary fibrosis Code(s): J84.10 - PULMONARY FIBROSIS, UNSPECIFIED (13) Sleep apnea Code(s): G47.30 - SLEEP APNEA, UNSPECIFIED (14) Acute CVA (cerebrovascular accident) Code(s): I63.9 - CEREBRAL INFARCTION, UNSPECIFIED (15) BPH (benign prostatic hyperplasia) Code(s): N40.0 - BENIGN PROSTATIC HYPERPLASIA WITHOUT LOWER URINRY TRACT SYMP Qualifiers: Lower urinary tract symptom presence: symptoms absent Qualified Code(s): N40.0 - Benign prostatic hyperplasia without lower urinary tract symptoms
[2018-09-21] MEDS ORDERED: ALBUTEROL SO4 0.083% IH SOL 2.5 MG/3 ML VIAL.NEB. NEB PRN (09:52)
[2018-09-21] MEDS: POLYETHYLENE GLYCOL 3350 119 GM BTL PO SCH ×2 (10:00→22:31)
[2018-09-21] MEDS: ALBUTEROL SO4 2.5/IPRATROPIUM 0.5 INH SOL 3 ML VIAL.NEB. NEB SCH ×3 (11:42→21:20)
[2018-09-21 12:08] LABS: ANISOCYTOSIS 0; HELMET CELLS 0; HOWELL-JOLLY BODIES 0; MACROCYTOSIS 0; OVALOCYTE 0; ROULEAU 0; SICKELED CELLS 0; TARGET CELLS 0; TEAR DROP CELLS 0; TOXIC GRANULATION 0
[2018-09-21 13:00] LABS: PLATELET ESTIMATE ADEQUATE
--- NOTE | 2018-09-21 13:56 | PN ---
Progress Note, Physician Chief Complaint: Mr Dolan still has coughing that is dry. Dyspnea with minimal exertion. No cp or n/v. - Current Medication List Current Medications: Active Medications Acetaminophen (Tylenol -) 650 mg PO Q4H PRN PRN Reason: FEVER Albuterol Sulfate (Ventolin 0.083% Nebulizer Soln -) 1 amp NEB Q4H PRN PRN Reason: SHORT OF BREATH/WHEEZING Albuterol/Ipratropium (Duoneb -) 1 amp NEB RQID [facility] Last Admin: 09/21/18 11:42 Dose: 1 amp Allopurinol (Zyloprim -) 50 mg PO DAILY [facility] Last Admin: 09/21/18 09:49 Dose: 50 mg Alprazolam (Xanax -) 0.25 mg PO Q12H PRN PRN Reason: ANXIETY Aspirin (Ecotrin -) 81 mg PO DAILY [facility] Last Admin: 09/21/18 09:49 Dose: 81 mg Atorvastatin Calcium (Lipitor -) 20 mg PO HS [facility] Last Admin: 09/20/18 23:00 Dose: 20 mg Clopidogrel Bisulfate (Plavix -) 75 mg PO DAILY [facility] Last Admin: 09/21/18 09:49 Dose: 75 mg Cyanocobalamin (Vitamin B12 -) 200 mcg PO DAILY [facility] Last Admin: 09/21/18 09:50 Dose: 200 mcg Docusate Sodium (Colace -) 100 mg PO BID [facility] Last Admin: 09/21/18 09:48 Dose: 100 mg Ezetimibe (Zetia -) 10 mg PO DAILY [facility] Last Admin: 09/21/18 09:51 Dose: 10 mg Piperacillin Sod/Tazobactam (Sod 2.25 gm/ Dextrose) 50 mls @ 100 mls/hr IVPB Q6H-IV [facility]; Protocol Last Admin: 09/21/18 09:31 Dose: 100 mls/hr Insulin Aspart (Novolog Vial Sliding Scale -) 1 vial SQ ACHS [facility]; Protocol Last Admin: 09/21/18 11:50 Dose: 8 units Insulin Detemir (Levemir Vial) 30 units SQ BID@0700,2200 [facility] Lactobacillus Acidophilus (Bacid -) 1 tab PO DAILY [facility] Last Admin: 09/21/18 09:48 Dose: 1 tab Methylprednisolone Sodium Succinate (Solu-Medrol -) 40 mg IVPUSH Q8H-IV [facility] Last Admin: 09/21/18 10:54 Dose: 40 mg Metoprolol Succinate (Toprol Xl -) 25 mg PO DAILY [facility] Last Admin: 09/21/18 09:48 Dose: 25 mg Non-Formulary Medication (Glycopyrrolate/Formoterol Fum [Bevespi Aerosphere Inhaler]) 5.9 gm IH ASDIR [facility] Ondansetron HCl (Zofran Injection) 4 mg IVPUSH Q6H PRN PRN Reason: NAUSEA Pantoprazole Sodium (Protonix -) 40 mg PO BID [facility] Last Admin: 09/21/18 09:49 Dose: 40 mg Polyethylene Glycol (Miralax (For Daily Use) -) 17 gm PO BID [facility] Last Admin: 09/21/18 10:00 Dose: 17 grams Ranolazine (Ranexa -) 1,000 mg PO BID [facility] Last Admin: 09/21/18 09:50 Dose: 1,000 mg Simethicone (Mylicon -) 80 mg PO QID PRN PRN Reason: DYSPEPSIA - Objective Vital Signs: Vital Signs Temperature 36.3 C L 09/21/18 09:30 Pulse Rate 81 09/21/18 09:30 Respiratory Rate 22 H 09/21/18 09:30 Blood Pressure 130/96 09/21/18 09:30 O2 Sat by Pulse Oximetry (%) 97 09/20/18 21:00 Constitutional: Yes: Well Nourished, No Distress, Calm Respiratory: Yes: On Venti-Mask, Rales, Wheezes. No: Regular, CTA Bilaterally, Rhonchi Gastrointestinal: Yes: Normal Bowel Sounds, Soft. No: Distention, Tenderness Extremities: Yes: WNL Edema: Yes Edema: LLE: 1+, RLE: 1+ Labs: CBC, BMP 09/21/18 07:00 09/21/18 07:00 INR, PTT INR 1.16 (0.83-1.09) H 09/18/18 12:14 Problem List - Problems (1) Pneumonia Code(s): J18.9 - PNEUMONIA, UNSPECIFIED ORGANISM Qualifiers: Pneumonia type: due to unspecified organism Laterality: unspecified laterality Lung location: unspecified part of lung Qualified Code(s): J18.9 - Pneumonia, unspecified organism (2) Sepsis Code(s): A41.9 - SEPSIS, UNSPECIFIED ORGANISM (3) Acute and chronic respiratory failure with hypoxia Code(s): J96.21 - ACUTE AND CHRONIC RESPIRATORY FAILURE WITH HYPOXIA (4) [id number]-[id number] kidney injury Code(s): N17.9 - ACUTE KIDNEY FAILURE, UNSPECIFIED; N18.9 - CHRONIC KIDNEY DISEASE, UNSPECIFIED Qualifiers: Acute renal failure type: unspecified Chronic kidney disease stage: unspecified stage Qualified Code(s): N17.9 - Acute kidney failure, unspecified ; N18.9 - Chronic kidney disease, unspecified; N18.9 - Chronic kidney disease, unspecified (5) CAD (coronary artery disease) Code(s): I25.10 - ATHSCL HEART DISEASE OF [place] CORONARY ARTERY W/O ANG PCTRS Qualifiers: [place] vs. transplanted heart: [place] heart Associated angina: without angina (6) CHF (congestive heart failure), NYHA class III Code(s): I50.9 - HEART FAILURE, UNSPECIFIED Qualifiers: Congestive heart failure type: systolic Congestive heart failure chronicity : chronic Qualified Code(s): I50.22 - Chronic systolic (congestive) heart failure (7) COPD (chronic obstructive pulmonary disease) Code(s): J44.9 - CHRONIC OBSTRUCTIVE PULMONARY DISEASE, UNSPECIFIED (8) Diabetes mellitus Code(s): E11.9 - TYPE 2 DIABETES MELLITUS WITHOUT COMPLICATIONS Qualifiers: Diabetes mellitus type: type 2 Diabetes mellitus fpc insulin use: with long term acute care registered nurse use Diabetes mellitus complication status: with kidney complications Diabetes mellitus complication detail: with chronic kidney disease Chronic kidney disease stage: stage 3 (moderate) Qualified Code(s): E11.22 - Type 2 diabetes mellitus with diabetic chronic kidney disease; N18.3 - Chronic kidney disease, stage 3 (moderate); Z79.4 - buttermaker continuous churn (current) use of insulin (9) Acute CVA (cerebrovascular accident) Code(s): I63.9 - CEREBRAL INFARCTION, UNSPECIFIED Assessment/Plan (1) Pneumonia Assessment/Plan: -continue zosyn -antibiotics per ID Code(s): J18.9 - PNEUMONIA, UNSPECIFIED ORGANISM Qualifiers: Pneumonia type: due to unspecified organism Laterality: unspecified laterality Lung location: unspecified part of lung Qualified Code(s): J18.9 - Pneumonia, unspecified organism (2) Sepsis Assessment/Plan: -resolved Code(s): A41.9 - SEPSIS, UNSPECIFIED ORGANISM (3) Acute and chronic respiratory failure with hypoxia Assessment/Plan: -secondary to pneumonia and sepsis -continue oxygen support -appreciate pulmonary assistance -stable -plan for discharge on home hospice Code(s): J96.21 - ACUTE AND CHRONIC RESPIRATORY FAILURE WITH HYPOXIA (4) Zhxny-bo-bcmbvwo kidney injury Assessment/Plan: -stable -IVF stopped Code(s): N17.9 - ACUTE KIDNEY FAILURE, UNSPECIFIED; N18.9 - CHRONIC KIDNEY DISEASE, UNSPECIFIED Qualifiers: Acute renal failure type: unspecified Chronic kidney disease stage: unspecified stage Qualified Code(s): N17.9 - Acute kidney failure, unspecified ; N18.9 - Chronic kidney disease, unspecified; N18.9 - Chronic kidney disease, unspecified (5) CAD (coronary artery disease) Assessment/Plan: -restart low dose metoprolol for HTN -otherwise continue current regimen -if decides on hospice can simplify drug regimen -quiescent currently Code(s): I25.10 - ATHSCL HEART DISEASE OF [place] CORONARY ARTERY W/O ANG PCTRS Qualifiers: [place] vs. transplanted heart: [place] heart Associated angina: without angina (6) CHF (congestive heart failure), NYHA class III Assessment/Plan: -restart lasix at low dose, patient feels he is retaining fluid in his legs Code(s): I50.9 - HEART FAILURE, UNSPECIFIED Qualifiers: Congestive heart failure type: systolic Congestive heart failure chronicity : chronic Qualified Code(s): I50.22 - Chronic systolic (congestive) heart failure (7) COPD (chronic obstructive pulmonary disease) Assessment/Plan: -continue steroids and bronchodilators -oxygen support Code(s): J44.9 - CHRONIC OBSTRUCTIVE PULMONARY DISEASE, UNSPECIFIED (8) Diabetes mellitus Assessment/Plan: -FSBS and SSI -will increase levemir for better control while on steroids Code(s): E11.9 - TYPE 2 DIABETES MELLITUS WITHOUT COMPLICATIONS Qualifiers: Diabetes mellitus type: type 2 Diabetes mellitus long term acute care registered nurse insulin use: with long term acute care registered nurse use Diabetes mellitus complication status: with kidney complications Diabetes mellitus complication detail: with chronic kidney disease Chronic kidney disease stage: stage 3 (moderate) Qualified Code(s): E11.22 - Type 2 diabetes mellitus with diabetic chronic kidney disease; N18.3 - Chronic kidney disease, stage 3 (moderate); Z79.4 - detention (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
[2018-09-21] MEDS: FUROSEMIDE 20 MG TABLET (FP) PO SCH (14:30)
--- NOTE | 2018-09-21 15:44 | PN ---
Progress Note (short form) - Note Progress Note: awake and alert desaturates easily with any effort comfortable Vital Signs Period Temp Pulse Resp BP Sys/Meraz Pulse Ox Last 24 Hr 97.3 F-98.3 F 76-93 20-22 130-162/80-107 97 cor-rrr lungs few crackles at bases abd soft,nt ext no edema CBC, BMP 09/21/18 07:00 09/21/18 07:00 Microbiology 09/18/18 12:14 Blood - Peripheral Venous Blood Culture - Preliminary NO GROWTH OBTAINED AFTER 72 HOURS, INCUBATION TO CONTINUE FOR 2 DAYS. 09/18/18 12:14 Blood - Peripheral Venous Blood Culture - Preliminary NO GROWTH OBTAINED AFTER 72 HOURS, INCUBATION TO CONTINUE FOR 2 DAYS. 09/18/18 19:06 Sputum - Expectorated Gram Stain - Final 09/18/18 19:06 Sputum - Expectorated Sputum Culture - Final NORMAL RESPIRATORY LYNETTE Current Medications Acetaminophen (Tylenol -) 650 mg PO Q4H PRN PRN Reason: FEVER Albuterol Sulfate (Ventolin 0.083% Nebulizer Soln -) 1 amp NEB Q4H PRN PRN Reason: SHORT OF BREATH/WHEEZING Albuterol/Ipratropium (Duoneb -) 1 amp NEB RQID [facility] Last Admin: 09/21/18 15:21 Dose: 1 amp Allopurinol (Zyloprim -) 50 mg PO DAILY [facility] Last Admin: 09/21/18 09:49 Dose: 50 mg Alprazolam (Xanax -) 0.25 mg PO Q12H PRN PRN Reason: ANXIETY Aspirin (Ecotrin -) 81 mg PO DAILY [facility] Last Admin: 09/21/18 09:49 Dose: 81 mg Atorvastatin Calcium (Lipitor -) 20 mg PO HS [facility] Last Admin: 09/20/18 23:00 Dose: 20 mg Clopidogrel Bisulfate (Plavix -) 75 mg PO DAILY [facility] Last Admin: 09/21/18 09:49 Dose: 75 mg Cyanocobalamin (Vitamin B12 -) 200 mcg PO DAILY [facility] Last Admin: 09/21/18 09:50 Dose: 200 mcg Docusate Sodium (Colace -) 100 mg PO BID [facility] Last Admin: 09/21/18 09:48 Dose: 100 mg Ezetimibe (Zetia -) 10 mg PO DAILY [facility] Last Admin: 09/21/18 09:51 Dose: 10 mg Furosemide (Lasix -) 20 mg PO DAILY [facility] Last Admin: 09/21/18 14:30 Dose: 20 mg Piperacillin Sod/Tazobactam (Sod 2.25 gm/ Dextrose) 50 mls @ 100 mls/hr IVPB Q6H-IV [facility]; Protocol Last Admin: 09/21/18 15:24 Dose: 100 mls/hr Insulin Aspart (Novolog Vial Sliding Scale -) 1 vial SQ ACHS [facility]; Protocol Last Admin: 09/21/18 11:50 Dose: 8 units Insulin Detemir (Levemir Vial) 30 units SQ BID@0700,2200 [facility] Lactobacillus Acidophilus (Bacid -) 1 tab PO DAILY [facility] Last Admin: 09/21/18 09:48 Dose: 1 tab Methylprednisolone Sodium Succinate (Solu-Medrol -) 40 mg IVPUSH Q8H-IV [facility] Last Admin: 09/21/18 10:54 Dose: 40 mg Metoprolol Succinate (Toprol Xl -) 25 mg PO DAILY [facility] Last Admin: 09/21/18 09:48 Dose: 25 mg Non-Formulary Medication (Glycopyrrolate/Formoterol Fum [Bevespi Aerosphere Inhaler]) 5.9 gm IH ASDIR [facility] Ondansetron HCl (Zofran Injection) 4 mg IVPUSH Q6H PRN PRN Reason: NAUSEA Pantoprazole Sodium (Protonix -) 40 mg PO BID [facility] Last Admin: 09/21/18 09:49 Dose: 40 mg Polyethylene Glycol (Miralax (For Daily Use) -) 17 gm PO BID [facility] Last Admin: 09/21/18 10:00 Dose: 17 grams Ranolazine (Ranexa -) 1,000 mg PO BID [facility] Last Admin: 09/21/18 09:50 Dose: 1,000 mg Simethicone (Mylicon -) 80 mg PO QID PRN PRN Reason: DYSPEPSIA a/p suspected aspiration pneumonia continue with zosyn to cover for aspiration can switch to po augmentin at discharge plan total 7 days of antibiotics suspect leukocytosis due to steroids hospice arrangements being made
--- NOTE | 2018-09-21 16:58 | CONS ---
DATE OF CONSULTATION: 09/18/2018 The patient was seen and examined and consult was done on the 18 of September. This is a rocio 72-year-old man, who lives at home with his . He has a history of COPD and ILD. He also has coronary artery disease and is status post a fairly recent MD. At home, he is on 6 L of oxygen. Family was preparing for home hospice and he developed acute worsening. He started having worsening hypoxia. He kept falling at home and he had vomiting that was really more of a retching. Family brought him to the emergency room, where he was noted to have a fever of 101.3. By the time I saw the patient, he was on the floor resting more comfortably. Family really reports that his dyspneic is most pronounced when he makes any effort to move at all, that when he is resting comfortably in bed, that he is quite okay. They were unable to transfer him due to his frequent falls and weakness. Of note, he takes a Z-Jan once a month, which he finished 1 week ago. This was prescribed to him by his pulmonary doctor and he does this every month. He has no known drug allergies. His medications at home include glycopyrrolate, formoterol fumarate inhaler, vitamin D, Ecotrin, allopurinol, albuterol, insulin, furosemide, Zetia, Trulicity, vitamin B12, Plavix, apple cider vinegar, Ranexa, he was taking 10 mg of prednisone, pitavastatin, pantoprazole, nintedanib esylate, metoprolol, Coenzyme Q, and tumeric. His past medical history is notable for history of coronary artery disease, CHF, hypertension, he is status post MD, pulmonary hypertension, COPD, on oxygen at home, pulmonary fibrosis, ILD, sleep apnea, renal insufficiency with a baseline creatinine of over 2, BPH, hematuria, anxiety, diabetes. Surgical history is notable for stents, cataract surgery, and appendectomy. SOCIAL HISTORY: He is a former smoker. He quit many years ago. No history of alcohol or substance use. He lives with his . He is retired due to disability. There is no history of any recent travel. His family history is notable for diabetes and heart disease and dementia. Review of systems is as per HPI. Aside from the fall from the sudden onset of this weakness and retching that he had yesterday, he was well. PHYSICAL EXAMINATION: General: A pleasant man, resting comfortably, but he is wearing a face mask. Vital Signs: Temperature is afebrile, though his T-max was 101.3. Pulse was 94. Blood pressure was 105/61. Respiratory rate 23. Saturating 94% on the face mask. HEENT: He is normocephalic. His eyes are anicteric. He has no thrush. Neck: Supple. Lungs: Crackles throughout, and rales. Heart: Regular rate and rhythm. Abdomen: Soft, nontender. Extremities: Trace edema. Cultures have been sent. White count on admission was 11.3, hemoglobin 13.2, platelets 195. BUN 42, creatinine 2.8, with normal LFTs and a lactic acid of 2.5. Urinalysis had 1 white cell, leukocyte esterase negative. Cultures were sent. Chest x-ray showed progressive congestive and infiltrative changes with a large heart. Head CT shows a possible acute right frontal cortical infarct. In summary, this is a very pleasant 72-year-old man with worsening lung disease, who has fever and worsening hypoxia. It is impossible to rule out pneumonia in this setting. He has been taking a Z-Jan monthly, so I doubt he has atypical pneumonia. He was retching before admission. The concern would be for aspiration. Would agree with Zosyn at this time. Cultures have been sent and are pending. Number 2, end-stage interstitial lung disease. Number 3, end-stage chronic obstructive pulmonary disease with pulmonary hypertension, [id number] respiratory failure. Plans are for home hospice, which are being arranged. Would continue the Zosyn while awaiting cultures, with further recommendations to follow. Case was discussed at length with the family at bedside and with the admitting hospitalist. HENRRY GUERRERO M.D. [id number]
[2018-09-21] MEDS: ATORVASTATIN CA 20 MG TABLET (FP) PO SCH (22:31)
[2018-09-22] MEDS ORDERED: PIPERACILLIN/TAZOBACTAM 2.25 GM VIAL IVPB ONE ×4 (01:06→21:03)
[2018-09-22] MEDS ORDERED: DEXTROSE 5%-WATER - 50 ML IVPB ONE ×4 (01:07→21:03)
[2018-09-22] MEDS: methylPREDNISolone NA SUCC 40 MG/1 ML VIAL IVPUSH SCH ×3 (02:01→17:28)
[2018-09-22] MEDS: PIPERACILLIN/TAZOB 2.25 GM 2.25 GM in DEXTROSE 5%-WATER - 50 ML IVPB SCH ×4 (03:04→21:16)
[2018-09-22] MEDS: INSULIN (LEVEMIR) 100 UNITS/ML UNITS SQ SCH ×2 (06:40→21:16)
[2018-09-22] MEDS: INSULIN SLIDING SCALE (NOVOLOG) 1 VIAL SQ SCH ×4 (06:41→21:17)
[2018-09-22] MEDS: ALBUTEROL SO4 2.5/IPRATROPIUM 0.5 INH SOL 3 ML VIAL.NEB. NEB SCH ×4 (07:35→20:38)
[2018-09-22 07:37] LABS: BASO % 0.1 % (0-2.0); HEMATOCRIT 37.1 % (35.4-49); HEMOGLOBIN 12.2 GM/dL (11.7-16.9); LYMPH % 3.2 % (8-40); MCH 28.2 pg (25.7-33.7); MCHC 32.8 g/dl (32.0-35.9); MEAN PLT VOLUME 8.3 fl (7.5-11.1); MONO % 4.7 % (3.8-10.2); PLATELET COUNT 151 K/MM3 (134-434); RBC 4.31 M/mm3 (4.00-5.60); RDW 18.5 % (11.9-15.9); WHITE BLOOD COUNT 14.4 K/mm3 (4.0-10.0)
[2018-09-22 07:47] LABS: BLOOD UREA NITROGEN 48.5 mg/dL (7-18); CALCIUM 8.8 mg/dL (8.5-10.1); CREATININE 2.2 mg/dL (0.55-1.3); MAGNESIUM 2.4 mg/dL (1.8-2.4); PHOSPHOROUS 3.4 mg/dL (2.5-4.9); POTASSIUM 5.1 mmol/L (3.5-5.1)
[2018-09-22] MEDS ORDERED: RANOLAZINE E.R. 500 MG TABLET (FP) ONE ×2 (09:23→21:03)
[2018-09-22] MEDS: DOCUSATE SODIUM 100 MG CAPSULE (FP) PO SCH ×2 (09:42→21:16)
[2018-09-22] MEDS: RANOLAZINE E.R. 1,000 MG TABLET (FP) PO SCH ×2 (09:43→21:17)
[2018-09-22] MEDS: metoPROLOL SUCCINATE 25 MG TAB.SR.24H (FP) PO SCH (09:43)
[2018-09-22] MEDS: ASPIRIN COATED 81 MG TABLET.EC PO SCH (09:50)
[2018-09-22] MEDS: ALLOPURINOL 100 MG TABLET (FP) PO SCH (09:51)
[2018-09-22] MEDS: CLOPIDOGREL BISULFATE 75 MG TABLET (FP) PO SCH (09:53)
[2018-09-22] MEDS: PANTOPRAZOLE 40 MG TABLET (FP) PO SCH ×2 (09:54→21:17)
[2018-09-22] MEDS: FUROSEMIDE 20 MG TABLET (FP) PO SCH (09:54)
[2018-09-22] MEDS: CYANOCOBALAMIN (VITAMIN B-12) 100 MCG TABLET PO SCH (09:55)
[2018-09-22] MEDS: LACTOBACILLUS ACIDOPHILUS 1 TABLET PO SCH (09:55)
[2018-09-22] MEDS: POLYETHYLENE GLYCOL 3350 119 GM BTL PO SCH ×2 (10:38→21:17)
[2018-09-22 10:43] LABS: ANISOCYTOSIS 1+; MACROCYTOSIS 1+; OVALOCYTE 1+; PLATELET ESTIMATE DECREASED
[2018-09-22] MEDS: EZETIMIBE 10 MG TABLET (FP) PO SCH (11:34)
[2018-09-22] MEDS ORDERED: FUROSEMIDE 20 MG TABLET (FP) PO ONE (12:28)
--- NOTE | 2018-09-22 12:34 | PN ---
Progress Note, Physician Chief Complaint: Mr Dolan says he feels that his feet are more swollen today. +bm. Cough is less today. No sob at rest but significant with minimal exertion. No cp or n/v. - Current Medication List Current Medications: Active Medications Acetaminophen (Tylenol -) 650 mg PO Q4H PRN PRN Reason: FEVER Albuterol Sulfate (Ventolin 0.083% Nebulizer Soln -) 1 amp NEB Q4H PRN PRN Reason: SHORT OF BREATH/WHEEZING Albuterol/Ipratropium (Duoneb -) 1 amp NEB RQID [facility] Last Admin: 09/22/18 11:22 Dose: 1 amp Allopurinol (Zyloprim -) 50 mg PO DAILY [facility] Last Admin: 09/22/18 09:51 Dose: 50 mg Alprazolam (Xanax -) 0.25 mg PO Q12H PRN PRN Reason: ANXIETY Aspirin (Ecotrin -) 81 mg PO DAILY [facility] Last Admin: 09/22/18 09:50 Dose: 81 mg Atorvastatin Calcium (Lipitor -) 20 mg PO HS [facility] Last Admin: 09/21/18 22:31 Dose: 20 mg Clopidogrel Bisulfate (Plavix -) 75 mg PO DAILY [facility] Last Admin: 09/22/18 09:53 Dose: 75 mg Cyanocobalamin (Vitamin B12 -) 200 mcg PO DAILY [facility] Last Admin: 09/22/18 09:55 Dose: 200 mcg Docusate Sodium (Colace -) 100 mg PO BID [facility] Last Admin: 09/22/18 09:42 Dose: 100 mg Ezetimibe (Zetia -) 10 mg PO DAILY [facility] Last Admin: 09/22/18 11:34 Dose: 10 mg Furosemide (Lasix -) 20 mg PO DAILY [facility] Last Admin: 09/22/18 09:54 Dose: 20 mg Furosemide (Lasix -) 20 mg PO ONCE ONE Stop: 09/22/18 12:29 Piperacillin Sod/Tazobactam (Sod 2.25 gm/ Dextrose) 50 mls @ 100 mls/hr IVPB Q6H-IV [facility]; Protocol Last Admin: 09/22/18 09:42 Dose: 100 mls/hr Insulin Aspart (Novolog Vial Sliding Scale -) 1 vial SQ ACHS [facility]; Protocol Last Admin: 09/22/18 11:48 Dose: 6 units Insulin Detemir (Levemir Vial) 30 units SQ BID@0700,2200 [facility] Last Admin: 09/22/18 06:40 Dose: 30 units Lactobacillus Acidophilus (Bacid -) 1 tab PO DAILY [facility] Last Admin: 09/22/18 09:55 Dose: 1 tab Methylprednisolone Sodium Succinate (Solu-Medrol -) 40 mg IVPUSH Q8H-IV [facility] Last Admin: 09/22/18 09:43 Dose: 40 mg Metoprolol Succinate (Toprol Xl -) 25 mg PO DAILY [facility] Last Admin: 09/22/18 09:43 Dose: 25 mg Non-Formulary Medication (Glycopyrrolate/Formoterol Fum [Bevespi Aerosphere Inhaler]) 5.9 gm IH ASDIR [facility] Ondansetron HCl (Zofran Injection) 4 mg IVPUSH Q6H PRN PRN Reason: NAUSEA Pantoprazole Sodium (Protonix -) 40 mg PO BID [facility] Last Admin: 09/22/18 09:54 Dose: 40 mg Polyethylene Glycol (Miralax (For Daily Use) -) 17 gm PO BID [facility] Last Admin: 09/22/18 10:38 Dose: 17 grams Ranolazine (Ranexa -) 1,000 mg PO BID [facility] Last Admin: 09/22/18 09:43 Dose: 1,000 mg Simethicone (Mylicon -) 80 mg PO QID PRN PRN Reason: DYSPEPSIA - Objective Vital Signs: Vital Signs Temperature 36.2 C L 09/22/18 06:00 Pulse Rate 77 09/22/18 06:00 Respiratory Rate 20 09/22/18 06:00 Blood Pressure 144/87 09/22/18 06:00 O2 Sat by Pulse Oximetry (%) 95 09/21/18 21:00 Constitutional: Yes: No Distress, Calm, Obese Cardiovascular: Yes: Regular Rate and Rhythm. No: Gallop, Murmur, Rub Respiratory: Yes: Regular, On Nasal O2, Rales, Other (unchanged). No: CTA Bilaterally, Rhonchi, Wheezes Gastrointestinal: Yes: Normal Bowel Sounds, Soft. No: Distention, Tenderness Extremities: Yes: WNL Edema: Yes Edema: LLE: 1+, RLE: 1+ Labs: CBC, BMP 09/22/18 06:40 09/22/18 06:40 INR, PTT INR 1.16 (0.83-1.09) H 09/18/18 12:14 Problem List - Problems (1) Pneumonia Code(s): J18.9 - PNEUMONIA, UNSPECIFIED ORGANISM Qualifiers: Pneumonia type: due to unspecified organism Laterality: unspecified laterality Lung location: unspecified part of lung Qualified Code(s): J18.9 - Pneumonia, unspecified organism (2) Sepsis Code(s): A41.9 - SEPSIS, UNSPECIFIED ORGANISM (3) Acute and chronic respiratory failure with hypoxia Code(s): J96.21 - ACUTE AND CHRONIC RESPIRATORY FAILURE WITH HYPOXIA (4) Fixyk-zn-[id number] kidney injury Code(s): N17.9 - ACUTE KIDNEY FAILURE, UNSPECIFIED; N18.9 - CHRONIC KIDNEY DISEASE, UNSPECIFIED Qualifiers: Acute renal failure type: unspecified Chronic kidney disease stage: unspecified stage Qualified Code(s): N17.9 - Acute kidney failure, unspecified ; N18.9 - Chronic kidney disease, unspecified; N18.9 - Chronic kidney disease, unspecified (5) CAD (coronary artery disease) Code(s): I25.10 - ATHSCL HEART DISEASE OF [place] CORONARY ARTERY W/O ANG PCTRS Qualifiers: [place] vs. transplanted heart: [place] heart Associated angina: without angina (6) CHF (congestive heart failure), NYHA class III Code(s): I50.9 - HEART FAILURE, UNSPECIFIED Qualifiers: Congestive heart failure type: systolic Congestive heart failure chronicity : chronic Qualified Code(s): I50.22 - Chronic systolic (congestive) heart failure (7) COPD (chronic obstructive pulmonary disease) Code(s): J44.9 - CHRONIC OBSTRUCTIVE PULMONARY DISEASE, UNSPECIFIED (8) Diabetes mellitus Code(s): E11.9 - TYPE 2 DIABETES MELLITUS WITHOUT COMPLICATIONS Qualifiers: Diabetes mellitus type: type 2 Diabetes mellitus terminal supervisor insulin use: with terminal supervisor use Diabetes mellitus complication status: with kidney complications Diabetes mellitus complication detail: with chronic kidney disease Chronic kidney disease stage: stage 3 (moderate) Qualified Code(s): E11.22 - Type 2 diabetes mellitus with diabetic chronic kidney disease; N18.3 - Chronic kidney disease, stage 3 (moderate); Z79.4 - longterm (current) use of insulin (9) Acute CVA (cerebrovascular accident) Code(s): I63.9 - CEREBRAL INFARCTION, UNSPECIFIED Assessment/Plan (1) Pneumonia Assessment/Plan: -continue zosyn, can change to augmentin on discharge -7 days of antibiotics total -day 4 Code(s): J18.9 - PNEUMONIA, UNSPECIFIED ORGANISM Qualifiers: Pneumonia type: due to unspecified organism Laterality: unspecified laterality Lung location: unspecified part of lung Qualified Code(s): J18.9 - Pneumonia, unspecified organism (2) Sepsis Assessment/Plan: -resolved Code(s): A41.9 - SEPSIS, UNSPECIFIED ORGANISM (3) Acute and chronic respiratory failure with hypoxia Assessment/Plan: -case d/w Dr Downey -continue solumedrol at current dose -continue oxygen support -suspect at baseline -plan for home hospice Code(s): J96.21 - ACUTE AND CHRONIC RESPIRATORY FAILURE WITH HYPOXIA (4) Nghmv-nz-laveclj kidney injury Assessment/Plan: -stable Code(s): N17.9 - ACUTE KIDNEY FAILURE, UNSPECIFIED; N18.9 - CHRONIC KIDNEY DISEASE, UNSPECIFIED Qualifiers: Acute renal failure type: unspecified Chronic kidney disease stage: unspecified stage Qualified Code(s): N17.9 - Acute kidney failure, unspecified ; N18.9 - Chronic kidney disease, unspecified; N18.9 - Chronic kidney disease, unspecified (5) CAD (coronary artery disease) Assessment/Plan: -continue current management Code(s): I25.10 - ATHSCL HEART DISEASE OF [place] CORONARY ARTERY W/O ANG PCTRS Qualifiers: [place] vs. transplanted heart: [place] heart Associated angina: without angina (6) CHF (congestive heart failure), NYHA class III Assessment/Plan: -give an extra lasix 20mg today -expect to improve with decreasing steroids Code(s): I50.9 - HEART FAILURE, UNSPECIFIED Qualifiers: Congestive heart failure type: systolic Congestive heart failure chronicity : chronic Qualified Code(s): I50.22 - Chronic systolic (congestive) heart failure (7) COPD (chronic obstructive pulmonary disease) Assessment/Plan: -continue steroids and bronchodilators -oxygen support Code(s): J44.9 - CHRONIC OBSTRUCTIVE PULMONARY DISEASE, UNSPECIFIED (8) Diabetes mellitus Assessment/Plan: -FSBS and SSI -continue levemir at current dose Code(s): E11.9 - TYPE 2 DIABETES MELLITUS WITHOUT COMPLICATIONS Qualifiers: Diabetes mellitus type: type 2 Diabetes mellitus residential insulin use: with residential use Diabetes mellitus complication status: with kidney complications Diabetes mellitus complication detail: with chronic kidney disease Chronic kidney disease stage: stage 3 (moderate) Qualified Code(s): E11.22 - Type 2 diabetes mellitus with diabetic chronic kidney disease; N18.3 - Chronic kidney disease, stage 3 (moderate); Z79.4 - longterm (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
--- NOTE | 2018-09-22 12:49 | PN ---
Progress Note (short form) - Note Progress Note: PULMONARY Breathing about the same. Possible hemoptysis after drinking his soup. No fevers or chills. Vital Signs Period Temp Pulse Resp BP Sys/Meraz Pulse Ox Last 24 Hr 97 F-97.3 F 77-93 20-22 144-156/83-94 95 Gen: tachypneic with speaking Heart: RRR Lung: bibasilar rales Abd: soft, nontender Ext: no edema CBC, BMP 09/22/18 06:40 09/22/18 06:40 Active Medications Acetaminophen (Tylenol -) 650 mg PO Q4H PRN PRN Reason: FEVER Albuterol Sulfate (Ventolin 0.083% Nebulizer Soln -) 1 amp NEB Q4H PRN PRN Reason: SHORT OF BREATH/WHEEZING Albuterol/Ipratropium (Duoneb -) 1 amp NEB RQID [facility] Last Admin: 09/22/18 11:22 Dose: 1 amp Allopurinol (Zyloprim -) 50 mg PO DAILY [facility] Last Admin: 09/22/18 09:51 Dose: 50 mg Alprazolam (Xanax -) 0.25 mg PO Q12H PRN PRN Reason: ANXIETY Aspirin (Ecotrin -) 81 mg PO DAILY [facility] Last Admin: 09/22/18 09:50 Dose: 81 mg Atorvastatin Calcium (Lipitor -) 20 mg PO HS [facility] Last Admin: 09/21/18 22:31 Dose: 20 mg Clopidogrel Bisulfate (Plavix -) 75 mg PO DAILY [facility] Last Admin: 09/22/18 09:53 Dose: 75 mg Cyanocobalamin (Vitamin B12 -) 200 mcg PO DAILY [facility] Last Admin: 09/22/18 09:55 Dose: 200 mcg Docusate Sodium (Colace -) 100 mg PO BID [facility] Last Admin: 09/22/18 09:42 Dose: 100 mg Ezetimibe (Zetia -) 10 mg PO DAILY [facility] Last Admin: 09/22/18 11:34 Dose: 10 mg Furosemide (Lasix -) 20 mg PO DAILY [facility] Last Admin: 09/22/18 09:54 Dose: 20 mg Furosemide (Lasix -) 20 mg PO ONCE ONE Stop: 09/22/18 12:29 Piperacillin Sod/Tazobactam (Sod 2.25 gm/ Dextrose) 50 mls @ 100 mls/hr IVPB Q6H-IV [facility]; Protocol Last Admin: 09/22/18 09:42 Dose: 100 mls/hr Insulin Aspart (Novolog Vial Sliding Scale -) 1 vial SQ ACHS [facility]; Protocol Last Admin: 09/22/18 11:48 Dose: 6 units Insulin Detemir (Levemir Vial) 30 units SQ BID@0700,2200 [facility] Last Admin: 09/22/18 06:40 Dose: 30 units Lactobacillus Acidophilus (Bacid -) 1 tab PO DAILY [facility] Last Admin: 09/22/18 09:55 Dose: 1 tab Methylprednisolone Sodium Succinate (Solu-Medrol -) 40 mg IVPUSH Q8H-IV [facility] Last Admin: 09/22/18 09:43 Dose: 40 mg Metoprolol Succinate (Toprol Xl -) 25 mg PO DAILY [facility] Last Admin: 09/22/18 09:43 Dose: 25 mg Non-Formulary Medication (Glycopyrrolate/Formoterol Fum [Bevespi Aerosphere Inhaler]) 5.9 gm IH ASDIR [facility] Ondansetron HCl (Zofran Injection) 4 mg IVPUSH Q6H PRN PRN Reason: NAUSEA Pantoprazole Sodium (Protonix -) 40 mg PO BID [facility] Last Admin: 09/22/18 09:54 Dose: 40 mg Polyethylene Glycol (Miralax (For Daily Use) -) 17 gm PO BID [facility] Last Admin: 09/22/18 10:38 Dose: 17 grams Ranolazine (Ranexa -) 1,000 mg PO BID [facility] Last Admin: 09/22/18 09:43 Dose: 1,000 mg Simethicone (Mylicon -) 80 mg PO QID PRN PRN Reason: DYSPEPSIA A/P Acute on Chronic Hypoxic Respiratory Failure Acute Exacerbation of Interstitial Lung Disease Acute COPD Exacerbation Pneumonia CKD CAD LV Systolic Dysfunction Pulmonary HTN HTN DM h/o CVA SHANTI - continue antibiotics - continue medrol at current dose - inhaled bronchodilators - O2 to keep Spo2 >90% - glucose control - DVT prophylaxis
[2018-09-22] MEDS ORDERED: INSULIN (NOVOLOG) ASPART 100 UNITS/ML 10ML VIAL ONE (21:04)
[2018-09-22] MEDS: ATORVASTATIN CA 20 MG TABLET (FP) PO SCH (21:16)
[2018-09-23] MEDS ORDERED: DEXTROSE 5%-WATER - 50 ML IVPB ONE ×4 (01:19→20:15)
[2018-09-23] MEDS ORDERED: PIPERACILLIN/TAZOBACTAM 2.25 GM VIAL IVPB ONE ×4 (01:19→20:15)
[2018-09-23] MEDS: PIPERACILLIN/TAZOB 2.25 GM 2.25 GM in DEXTROSE 5%-WATER - 50 ML IVPB SCH ×4 (02:05→21:20)
[2018-09-23] MEDS: methylPREDNISolone NA SUCC 40 MG/1 ML VIAL IVPUSH SCH ×3 (02:05→17:57)
[2018-09-23] MEDS: INSULIN (LEVEMIR) 100 UNITS/ML UNITS SQ SCH ×2 (06:38→21:20)
[2018-09-23] MEDS: INSULIN SLIDING SCALE (NOVOLOG) 1 VIAL SQ SCH ×4 (06:38→21:21)
[2018-09-23] MEDS ORDERED: INSULIN (NOVOLOG) ASPART 100 UNITS/ML 10ML VIAL ONE ×4 (06:49→20:13)
[2018-09-23] MEDS ORDERED: PT OWN MED DRAWER 7, Y5N ONE ×4 (06:50→20:11)
[2018-09-23] MEDS: ALBUTEROL SO4 2.5/IPRATROPIUM 0.5 INH SOL 3 ML VIAL.NEB. NEB SCH ×4 (08:28→20:46)
[2018-09-23 08:41] LABS: BASO % 0.4 % (0-2.0); HEMATOCRIT 36.6 % (35.4-49); HEMOGLOBIN 12.1 GM/dL (11.7-16.9); MCH 28.1 pg (25.7-33.7); MEAN CELL VOLUME 85.2 fl (80-96); MEAN PLT VOLUME 8.3 fl (7.5-11.1); MONO % 4.6 % (3.8-10.2); PLATELET COUNT 168 K/MM3 (134-434); RBC 4.29 M/mm3 (4.00-5.60); RDW 18.3 % (11.9-15.9); WHITE BLOOD COUNT 13.7 K/mm3 (4.0-10.0)
[2018-09-23 08:55] LABS: CALCIUM 8.9 mg/dL (8.5-10.1); MAGNESIUM 2.3 mg/dL (1.8-2.4); PHOSPHOROUS 3.5 mg/dL (2.5-4.9); POTASSIUM 4.4 mmol/L (3.5-5.1)
[2018-09-23] MEDS ORDERED: RANOLAZINE E.R. 500 MG TABLET (FP) ONE (08:58)
[2018-09-23] MEDS: ASPIRIN COATED 81 MG TABLET.EC PO SCH (09:12)
[2018-09-23] MEDS: CLOPIDOGREL BISULFATE 75 MG TABLET (FP) PO SCH (09:12)
[2018-09-23] MEDS: metoPROLOL SUCCINATE 25 MG TAB.SR.24H (FP) PO SCH (09:13)
[2018-09-23] MEDS: FUROSEMIDE 20 MG TABLET (FP) PO SCH (09:13)
[2018-09-23] MEDS: DOCUSATE SODIUM 100 MG CAPSULE (FP) PO SCH ×2 (09:13→21:20)
[2018-09-23] MEDS: PANTOPRAZOLE 40 MG TABLET (FP) PO SCH ×2 (09:13→21:22)
[2018-09-23] MEDS: ALLOPURINOL 100 MG TABLET (FP) PO SCH (09:13)
[2018-09-23] MEDS: RANOLAZINE E.R. 1,000 MG TABLET (FP) PO SCH ×2 (09:14→21:22)
[2018-09-23] MEDS: LACTOBACILLUS ACIDOPHILUS 1 TABLET PO SCH (09:14)
[2018-09-23] MEDS: EZETIMIBE 10 MG TABLET (FP) PO SCH (09:15)
[2018-09-23] MEDS: CYANOCOBALAMIN (VITAMIN B-12) 100 MCG TABLET PO SCH (09:15)
[2018-09-23] MEDS: POLYETHYLENE GLYCOL 3350 119 GM BTL PO SCH ×2 (09:16→21:21)
--- NOTE | 2018-09-23 11:08 | PN ---
Progress Note (short form) - Note Progress Note: Hospitalist to document today. Some increase in coughing today; will add Robitussin with codeine PRN. As he is a palliative patient we should give consideration to around the clock low dose opiods to help his sensations of SOB even though there will be no change in PulseOX or respiratory rate.
--- NOTE | 2018-09-23 12:14 | PN ---
Progress Note (short form) - Note Progress Note: PULMONARY Still short of breath, feels slightly more congested today. No fevers or chills. Vital Signs Period Temp Pulse Resp BP Sys/Meraz Pulse Ox Last 24 Hr 97.3 F-98.6 F 82-94 20-24 131-149/76-93 96-99 Gen: tachypneic with speaking Heart: RRR Lung: bibasilar rales Abd: soft, nontender Ext: no edema CBC, BMP 09/23/18 06:15 09/23/18 06:15 Active Medications Acetaminophen (Tylenol -) 650 mg PO Q4H PRN PRN Reason: FEVER Albuterol Sulfate (Ventolin 0.083% Nebulizer Soln -) 1 amp NEB Q4H PRN PRN Reason: SHORT OF BREATH/WHEEZING Albuterol/Ipratropium (Duoneb -) 1 amp NEB RQID [facility] Last Admin: 09/23/18 11:55 Dose: 1 amp Allopurinol (Zyloprim -) 50 mg PO DAILY [facility] Last Admin: 09/23/18 09:13 Dose: 50 mg Alprazolam (Xanax -) 0.25 mg PO Q12H PRN PRN Reason: ANXIETY Aspirin (Ecotrin -) 81 mg PO DAILY [facility] Last Admin: 09/23/18 09:12 Dose: 81 mg Atorvastatin Calcium (Lipitor -) 20 mg PO HS [facility] Last Admin: 09/22/18 21:16 Dose: 20 mg Clopidogrel Bisulfate (Plavix -) 75 mg PO DAILY [facility] Last Admin: 09/23/18 09:12 Dose: 75 mg Cyanocobalamin (Vitamin B12 -) 200 mcg PO DAILY [facility] Last Admin: 09/23/18 09:15 Dose: 200 mcg Docusate Sodium (Colace -) 100 mg PO BID [facility] Last Admin: 09/23/18 09:13 Dose: 100 mg Ezetimibe (Zetia -) 10 mg PO DAILY [facility] Last Admin: 09/23/18 09:15 Dose: 10 mg Furosemide (Lasix -) 20 mg PO DAILY [facility] Last Admin: 09/23/18 09:13 Dose: 20 mg Guaifenesin/Codeine Phosphate (Robitussin Ac -) 5 ml PO TID PRN PRN Reason: COUGH Piperacillin Sod/Tazobactam (Sod 2.25 gm/ Dextrose) 50 mls @ 100 mls/hr IVPB Q6H-IV [facility]; Protocol Last Admin: 09/23/18 09:14 Dose: 100 mls/hr Insulin Aspart (Novolog Vial Sliding Scale -) 1 vial SQ ACHS [facility]; Protocol Last Admin: 09/23/18 11:53 Dose: 4 units Insulin Detemir (Levemir Vial) 30 units SQ BID@0700,2200 [facility] Last Admin: 09/23/18 06:38 Dose: 30 units Lactobacillus Acidophilus (Bacid -) 1 tab PO DAILY [facility] Last Admin: 09/23/18 09:14 Dose: 1 tab Methylprednisolone Sodium Succinate (Solu-Medrol -) 40 mg IVPUSH Q8H-IV [facility] Last Admin: 09/23/18 10:22 Dose: 40 mg Metoprolol Succinate (Toprol Xl -) 25 mg PO DAILY [facility] Last Admin: 09/23/18 09:13 Dose: 25 mg Non-Formulary Medication (Glycopyrrolate/Formoterol Fum [Bevespi Aerosphere Inhaler]) 5.9 gm IH ASDIR [facility] Ondansetron HCl (Zofran Injection) 4 mg IVPUSH Q6H PRN PRN Reason: NAUSEA Pantoprazole Sodium (Protonix -) 40 mg PO BID [facility] Last Admin: 09/23/18 09:13 Dose: 40 mg Polyethylene Glycol (Miralax (For Daily Use) -) 17 gm PO BID [facility] Last Admin: 09/23/18 09:16 Dose: 17 grams Ranolazine (Ranexa -) 1,000 mg PO BID [facility] Last Admin: 09/23/18 09:14 Dose: 1,000 mg Simethicone (Mylicon -) 80 mg PO QID PRN PRN Reason: DYSPEPSIA A/P Acute on Chronic Hypoxic Respiratory Failure Acute Exacerbation of Interstitial Lung Disease Acute COPD Exacerbation Pneumonia CKD CAD LV Systolic Dysfunction Pulmonary HTN HTN DM h/o CVA SHANTI - repeat CXR - continue antibiotics - continue medrol at current dose - inhaled bronchodilators - O2 to keep Spo2 >90% - glucose control - DVT prophylaxis
[2018-09-23 12:22] LABS: ANISOCYTOSIS 1+; MACROCYTOSIS 1+; OVALOCYTE 1+; PLATELET ESTIMATE NORMAL
[2018-09-23] MEDS: guaiFENesin/CODEINE 5 ML UNIT-DOSE CUPS PO PRN ×2 (13:12→21:22)
--- NOTE | 2018-09-23 17:20 | PN ---
Progress Note, Physician Chief Complaint: Mr Dolan feels bloated today. Denies cp, sob at rest, or n/v. Still with severe dyspnea on minimal exertion. - Current Medication List Current Medications: Active Medications Acetaminophen (Tylenol -) 650 mg PO Q4H PRN PRN Reason: FEVER Albuterol Sulfate (Ventolin 0.083% Nebulizer Soln -) 1 amp NEB Q4H PRN PRN Reason: SHORT OF BREATH/WHEEZING Albuterol/Ipratropium (Duoneb -) 1 amp NEB RQID [facility] Last Admin: 09/23/18 16:20 Dose: 1 amp Allopurinol (Zyloprim -) 50 mg PO DAILY [facility] Last Admin: 09/23/18 09:13 Dose: 50 mg Alprazolam (Xanax -) 0.25 mg PO Q12H PRN PRN Reason: ANXIETY Aspirin (Ecotrin -) 81 mg PO DAILY [facility] Last Admin: 09/23/18 09:12 Dose: 81 mg Atorvastatin Calcium (Lipitor -) 20 mg PO HS [facility] Last Admin: 09/22/18 21:16 Dose: 20 mg Clopidogrel Bisulfate (Plavix -) 75 mg PO DAILY [facility] Last Admin: 09/23/18 09:12 Dose: 75 mg Cyanocobalamin (Vitamin B12 -) 200 mcg PO DAILY [facility] Last Admin: 09/23/18 09:15 Dose: 200 mcg Docusate Sodium (Colace -) 100 mg PO BID [facility] Last Admin: 09/23/18 09:13 Dose: 100 mg Ezetimibe (Zetia -) 10 mg PO DAILY [facility] Last Admin: 09/23/18 09:15 Dose: 10 mg Furosemide (Lasix -) 20 mg PO DAILY [facility] Last Admin: 09/23/18 09:13 Dose: 20 mg Guaifenesin/Codeine Phosphate (Robitussin Ac -) 5 ml PO TID PRN PRN Reason: COUGH Last Admin: 09/23/18 13:12 Dose: 5 ml Piperacillin Sod/Tazobactam (Sod 2.25 gm/ Dextrose) 50 mls @ 100 mls/hr IVPB Q6H-IV [facility]; Protocol Last Admin: 09/23/18 15:28 Dose: 100 mls/hr Insulin Aspart (Novolog Vial Sliding Scale -) 1 vial SQ ACHS [facility]; Protocol Last Admin: 09/23/18 11:53 Dose: 4 units Insulin Detemir (Levemir Vial) 30 units SQ BID@0700,2200 [facility] Last Admin: 09/23/18 06:38 Dose: 30 units Lactobacillus Acidophilus (Bacid -) 1 tab PO DAILY [facility] Last Admin: 09/23/18 09:14 Dose: 1 tab Methylprednisolone Sodium Succinate (Solu-Medrol -) 40 mg IVPUSH Q8H-IV [facility] Last Admin: 09/23/18 10:22 Dose: 40 mg Metoprolol Succinate (Toprol Xl -) 25 mg PO DAILY [facility] Last Admin: 09/23/18 09:13 Dose: 25 mg Non-Formulary Medication (Glycopyrrolate/Formoterol Fum [Bevespi Aerosphere Inhaler]) 5.9 gm IH ASDIR [facility] Ondansetron HCl (Zofran Injection) 4 mg IVPUSH Q6H PRN PRN Reason: NAUSEA Pantoprazole Sodium (Protonix -) 40 mg PO BID [facility] Last Admin: 09/23/18 09:13 Dose: 40 mg Polyethylene Glycol (Miralax (For Daily Use) -) 17 gm PO BID [facility] Last Admin: 09/23/18 09:16 Dose: 17 grams Ranolazine (Ranexa -) 1,000 mg PO BID [facility] Last Admin: 09/23/18 09:14 Dose: 1,000 mg Simethicone (Mylicon -) 80 mg PO QID PRN PRN Reason: DYSPEPSIA - Objective Vital Signs: Vital Signs Temperature 36.4 C L 09/23/18 14:05 Pulse Rate 100 H 09/23/18 14:05 Respiratory Rate 22 H 09/23/18 14:05 Blood Pressure 117/82 09/23/18 14:05 O2 Sat by Pulse Oximetry (%) 96 09/23/18 10:40 Constitutional: Yes: Well Nourished, No Distress, Calm HENT: No: Thrush Cardiovascular: Yes: Regular Rate and Rhythm. No: Gallop, Murmur, Rub Respiratory: Yes: Regular, On Venti-Mask, Rhonchi. No: CTA Bilaterally, Rales, Wheezes Gastrointestinal: Yes: Normal Bowel Sounds, Soft. No: Distention, Tenderness Extremities: Yes: WNL Edema: Yes Edema: LUE: 1+, RUE: 1+, LLE: 1+, RLE: 1+ Labs: CBC, BMP 09/23/18 06:15 09/23/18 06:15 INR, PTT INR 1.16 (0.83-1.09) H 09/18/18 12:14 Problem List - Problems (1) Pneumonia Code(s): J18.9 - PNEUMONIA, UNSPECIFIED ORGANISM Qualifiers: Pneumonia type: due to unspecified organism Laterality: unspecified laterality Lung location: unspecified part of lung Qualified Code(s): J18.9 - Pneumonia, unspecified organism (2) Sepsis Code(s): A41.9 - SEPSIS, UNSPECIFIED ORGANISM (3) Acute and chronic respiratory failure with hypoxia Code(s): J96.21 - ACUTE AND CHRONIC RESPIRATORY FAILURE WITH HYPOXIA (4) [id number] kidney injury Code(s): N17.9 - ACUTE KIDNEY FAILURE, UNSPECIFIED; N18.9 - CHRONIC KIDNEY DISEASE, UNSPECIFIED Qualifiers: Acute renal failure type: unspecified Chronic kidney disease stage: unspecified stage Qualified Code(s): N17.9 - Acute kidney failure, unspecified ; N18.9 - Chronic kidney disease, unspecified; N18.9 - Chronic kidney disease, unspecified (5) CAD (coronary artery disease) Code(s): I25.10 - ATHSCL HEART DISEASE OF [place] CORONARY ARTERY W/O ANG PCTRS Qualifiers: [place] vs. 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 Diabetes mellitus complication status: with kidney complications Diabetes mellitus complication detail: with chronic kidney disease Chronic kidney disease stage: stage 3 (moderate) Qualified Code(s): E11.22 - Type 2 diabetes mellitus with diabetic chronic kidney disease; N18.3 - Chronic kidney disease, stage 3 (moderate); Z79.4 - MCFP (current) use of insulin (9) Acute CVA (cerebrovascular accident) Code(s): I63.9 - CEREBRAL INFARCTION, UNSPECIFIED Assessment/Plan (1) Pneumonia Assessment/Plan: -continue zosyn, can change to augmentin on discharge -7 days of antibiotics total -day 5 Code(s): J18.9 - PNEUMONIA, UNSPECIFIED ORGANISM Qualifiers: Pneumonia type: due to unspecified organism Laterality: unspecified laterality Lung location: unspecified part of lung Qualified Code(s): J18.9 - Pneumonia, unspecified organism (2) Sepsis Assessment/Plan: -resolved Code(s): A41.9 - SEPSIS, UNSPECIFIED ORGANISM (3) Acute and chronic respiratory failure with hypoxia Assessment/Plan: -case d/w Dr Downey -continue solumedrol at current dose -continue oxygen support -suspect at baseline -plan for home hospice Code(s): J96.21 - ACUTE AND CHRONIC RESPIRATORY FAILURE WITH HYPOXIA (4) Noxui-qf-ltgefey kidney injury Assessment/Plan: -stable Code(s): N17.9 - ACUTE KIDNEY FAILURE, UNSPECIFIED; N18.9 - CHRONIC KIDNEY DISEASE, UNSPECIFIED Qualifiers: Acute renal failure type: unspecified Chronic kidney disease stage: unspecified stage Qualified Code(s): N17.9 - Acute kidney failure, unspecified ; N18.9 - Chronic kidney disease, unspecified; N18.9 - Chronic kidney disease, unspecified (5) CAD (coronary artery disease) Assessment/Plan: -continue current management Code(s): I25.10 - ATHSCL HEART DISEASE OF [place] CORONARY ARTERY W/O ANG PCTRS Qualifiers: [place] vs. transplanted heart: [place] heart Associated angina: without angina (6) CHF (congestive heart failure), NYHA class III Assessment/Plan: -increase lasix to 40mg daily -increase as needed for comfort Code(s): I50.9 - HEART FAILURE, UNSPECIFIED Qualifiers: Congestive heart failure type: systolic Congestive heart failure chronicity : chronic Qualified Code(s): I50.22 - Chronic systolic (congestive) heart failure (7) COPD (chronic obstructive pulmonary disease) Assessment/Plan: -continue steroids and bronchodilators -oxygen support Code(s): J44.9 - CHRONIC OBSTRUCTIVE PULMONARY DISEASE, UNSPECIFIED (8) Diabetes mellitus Assessment/Plan: -FSBS and SSI -continue levemir at current dose Code(s): E11.9 - TYPE 2 DIABETES MELLITUS WITHOUT COMPLICATIONS Qualifiers: Diabetes mellitus type: type 2 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 Diabetes mellitus complication status: with kidney complications Diabetes mellitus complication detail: with chronic kidney disease Chronic kidney disease stage: stage 3 (moderate) Qualified Code(s): E11.22 - Type 2 diabetes mellitus with diabetic chronic kidney disease; N18.3 - Chronic kidney disease, stage 3 (moderate); Z79.4 - contact center consultant (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 Dispo -when transitioned off of IV steroids begin plan for discharge home with home hospice -case d/w Dr Garrido and appreciate his assistance
[2018-09-23] MEDS: ATORVASTATIN CA 20 MG TABLET (FP) PO SCH (21:21)
[2018-09-24] MEDS ORDERED: DEXTROSE 5%-WATER - 50 ML IVPB ONE ×4 (02:01→21:11)
[2018-09-24] MEDS ORDERED: PIPERACILLIN/TAZOBACTAM 2.25 GM VIAL IVPB ONE ×4 (02:01→21:10)
[2018-09-24] MEDS: PIPERACILLIN/TAZOB 2.25 GM 2.25 GM in DEXTROSE 5%-WATER - 50 ML IVPB SCH ×4 (02:09→21:43)
[2018-09-24] MEDS: methylPREDNISolone NA SUCC 40 MG/1 ML VIAL IVPUSH SCH ×3 (02:09→21:46)
[2018-09-24] MEDS: INSULIN SLIDING SCALE (NOVOLOG) 1 VIAL SQ SCH ×4 (06:00→21:46)
[2018-09-24] MEDS: INSULIN (LEVEMIR) 100 UNITS/ML UNITS SQ SCH ×2 (06:00→21:44)
[2018-09-24] MEDS ORDERED: PT OWN MED DRAWER 7, Y5N ONE ×2 (06:24→11:25)
[2018-09-24] MEDS ORDERED: INSULIN (NOVOLOG) ASPART 100 UNITS/ML 10ML VIAL ONE ×3 (06:24→21:09)
[2018-09-24] MEDS: ALBUTEROL SO4 2.5/IPRATROPIUM 0.5 INH SOL 3 ML VIAL.NEB. NEB SCH ×4 (08:01→21:00)
--- NOTE | 2018-09-24 08:45 | PN ---
Progress Note (short form) - Note Progress Note: Hospitalist to document today. Awaiting arrangements from home hospice; will need switch from IV steroids before D/C.
[2018-09-24] MEDS ORDERED: RANOLAZINE E.R. 500 MG TABLET (FP) ONE ×2 (10:13→21:10)
[2018-09-24] MEDS: CLOPIDOGREL BISULFATE 75 MG TABLET (FP) PO SCH (11:00)
[2018-09-24] MEDS: metoPROLOL SUCCINATE 25 MG TAB.SR.24H (FP) PO SCH (11:00)
[2018-09-24] MEDS: guaiFENesin/CODEINE 5 ML UNIT-DOSE CUPS PO PRN (11:00)
[2018-09-24] MEDS: DOCUSATE SODIUM 100 MG CAPSULE (FP) PO SCH ×2 (11:00→21:44)
[2018-09-24] MEDS: ALLOPURINOL 100 MG TABLET (FP) PO SCH (11:00)
[2018-09-24] MEDS: LACTOBACILLUS ACIDOPHILUS 1 TABLET PO SCH (11:00)
[2018-09-24] MEDS: EZETIMIBE 10 MG TABLET (FP) PO SCH (11:01)
[2018-09-24] MEDS: ASPIRIN COATED 81 MG TABLET.EC PO SCH (11:02)
[2018-09-24] MEDS: FUROSEMIDE 40 MG TABLET (FP) PO SCH (11:03)
[2018-09-24] MEDS: RANOLAZINE E.R. 1,000 MG TABLET (FP) PO SCH ×2 (11:03→21:45)
[2018-09-24] MEDS: PANTOPRAZOLE 40 MG TABLET (FP) PO SCH ×2 (11:03→21:45)
[2018-09-24] MEDS: POLYETHYLENE GLYCOL 3350 119 GM BTL PO SCH ×2 (11:05→22:02)
[2018-09-24] MEDS: CYANOCOBALAMIN (VITAMIN B-12) 100 MCG TABLET PO SCH (11:05)
--- NOTE | 2018-09-24 13:59 | PN ---
Progress Note, Physician History of Present Illness: pulmonary comfortable at rest,+ manzano( walking to baathroom) with significant o2 desaturation on o2 - Current Medication List Current Medications: Active Medications Acetaminophen (Tylenol -) 650 mg PO Q4H PRN PRN Reason: FEVER Albuterol Sulfate (Ventolin 0.083% Nebulizer Soln -) 1 amp NEB Q4H PRN PRN Reason: SHORT OF BREATH/WHEEZING Albuterol/Ipratropium (Duoneb -) 1 amp NEB RQID [facility] Last Admin: 09/24/18 11:42 Dose: 1 amp Allopurinol (Zyloprim -) 50 mg PO DAILY [facility] Last Admin: 09/24/18 11:00 Dose: 50 mg Alprazolam (Xanax -) 0.25 mg PO Q12H PRN PRN Reason: ANXIETY Aspirin (Ecotrin -) 81 mg PO DAILY [facility] Last Admin: 09/24/18 11:02 Dose: 81 mg Atorvastatin Calcium (Lipitor -) 20 mg PO HS [facility] Last Admin: 09/23/18 21:21 Dose: 20 mg Clopidogrel Bisulfate (Plavix -) 75 mg PO DAILY [facility] Last Admin: 09/24/18 11:00 Dose: 75 mg Cyanocobalamin (Vitamin B12 -) 200 mcg PO DAILY [facility] Last Admin: 09/24/18 11:05 Dose: 200 mcg Docusate Sodium (Colace -) 100 mg PO BID [facility] Last Admin: 09/24/18 11:00 Dose: 100 mg Ezetimibe (Zetia -) 10 mg PO DAILY [facility] Last Admin: 09/24/18 11:01 Dose: 10 mg Furosemide (Lasix -) 40 mg PO DAILY [facility] Last Admin: 09/24/18 11:03 Dose: 40 mg Guaifenesin/Codeine Phosphate (Robitussin Ac -) 5 ml PO TID PRN PRN Reason: COUGH Last Admin: 09/24/18 11:00 Dose: 5 ml Piperacillin Sod/Tazobactam (Sod 2.25 gm/ Dextrose) 50 mls @ 100 mls/hr IVPB Q6H-IV [facility]; Protocol Last Admin: 09/24/18 11:06 Dose: 100 mls/hr Insulin Aspart (Novolog Vial Sliding Scale -) 1 vial SQ ACHS [facility]; Protocol Last Admin: 09/24/18 11:19 Dose: 4 units Insulin Detemir (Levemir Vial) 30 units SQ BID@0700,2200 [facility] Last Admin: 09/24/18 06:00 Dose: 30 units Lactobacillus Acidophilus (Bacid -) 1 tab PO DAILY [facility] Last Admin: 09/24/18 11:00 Dose: 1 tab Methylprednisolone Sodium Succinate (Solu-Medrol -) 40 mg IVPUSH Q8H-IV [facility] Last Admin: 09/24/18 11:04 Dose: 40 mg Metoprolol Succinate (Toprol Xl -) 25 mg PO DAILY [facility] Last Admin: 09/24/18 11:00 Dose: 25 mg Non-Formulary Medication (Glycopyrrolate/Formoterol Fum [Bevespi Aerosphere Inhaler]) 5.9 gm IH ASDIR [facility] Ondansetron HCl (Zofran Injection) 4 mg IVPUSH Q6H PRN PRN Reason: NAUSEA Pantoprazole Sodium (Protonix -) 40 mg PO BID [facility] Last Admin: 09/24/18 11:03 Dose: 40 mg Polyethylene Glycol (Miralax (For Daily Use) -) 17 gm PO BID [facility] Last Admin: 09/24/18 11:05 Dose: 17 grams Ranolazine (Ranexa -) 1,000 mg PO BID [facility] Last Admin: 09/24/18 11:03 Dose: 1,000 mg Simethicone (Mylicon -) 80 mg PO QID PRN PRN Reason: DYSPEPSIA - Objective Vital Signs: Vital Signs Temperature 97.5 F L 09/24/18 09:00 Pulse Rate 77 09/24/18 09:00 Respiratory Rate 20 09/24/18 09:00 Blood Pressure 152/86 09/24/18 09:00 O2 Sat by Pulse Oximetry (%) 97 09/23/18 21:00 Constitutional: Yes: Well Nourished, Calm Eyes: Yes: WNL HENT: Yes: WNL Neck: Yes: WNL Cardiovascular: Yes: Regular Rate and Rhythm, S1, S2 Respiratory: Yes: Rales (yolande crackles) Gastrointestinal: Yes: Normal Bowel Sounds, Soft Extremities: Yes: WNL Edema: No Labs: Problem List - Problems (1) Pneumonia Code(s): J18.9 - PNEUMONIA, UNSPECIFIED ORGANISM Qualifiers: Pneumonia type: due to unspecified organism Laterality: unspecified laterality Lung location: unspecified part of lung Qualified Code(s): J18.9 - Pneumonia, unspecified organism (2) Acute and chronic respiratory failure Code(s): J96.20 - ACUTE AND CHR RESP FAILURE, UNSP W HYPOXIA OR HYPERCAPNIA Qualifiers: (3) Acute and chronic respiratory failure with hypoxia Code(s): J96.21 - ACUTE AND CHRONIC RESPIRATORY FAILURE WITH HYPOXIA (4) Xhihg-tz-cnoohzz kidney injury Code(s): N17.9 - ACUTE KIDNEY FAILURE, UNSPECIFIED; N18.9 - CHRONIC KIDNEY DISEASE, UNSPECIFIED Qualifiers: Acute renal failure type: unspecified Chronic kidney disease stage: unspecified stage Qualified Code(s): N17.9 - Acute kidney failure, unspecified ; N18.9 - Chronic kidney disease, unspecified; N18.9 - Chronic kidney disease, unspecified (5) CAD (coronary artery disease) Code(s): I25.10 - ATHSCL HEART DISEASE OF [place] CORONARY ARTERY W/O ANG PCTRS Qualifiers: [place] vs. transplanted heart: [place] heart Associated angina: without angina (6) CHF (congestive heart failure), NYHA class III Code(s): I50.9 - HEART FAILURE, UNSPECIFIED Qualifiers: Congestive heart failure type: systolic Congestive heart failure chronicity : chronic Qualified Code(s): I50.22 - Chronic systolic (congestive) heart failure (7) CKD (chronic kidney disease) stage 3, GFR 30-59 ml/min Code(s): N18.3 - CHRONIC KIDNEY DISEASE, STAGE 3 (MODERATE) (8) COPD (chronic obstructive pulmonary disease) Code(s): J44.9 - CHRONIC OBSTRUCTIVE PULMONARY DISEASE, UNSPECIFIED (9) Diabetes mellitus type 2 in nonobese Code(s): E11.9 - TYPE 2 DIABETES MELLITUS WITHOUT COMPLICATIONS (10) Dizziness Code(s): R42 - DIZZINESS AND GIDDINESS (11) HTN (hypertension) Code(s): I10 - ESSENTIAL (PRIMARY) HYPERTENSION Qualifiers: Hypertension type: essential hypertension Qualified Code(s): I10 - Essential (primary) hypertension (12) Pulmonary fibrosis Code(s): J84.10 - PULMONARY FIBROSIS, UNSPECIFIED (13) Sleep apnea Code(s): G47.30 - SLEEP APNEA, UNSPECIFIED (14) Acute CVA (cerebrovascular accident) Code(s): I63.9 - CEREBRAL INFARCTION, UNSPECIFIED (15) BPH (benign prostatic hyperplasia) Code(s): N40.0 - BENIGN PROSTATIC HYPERPLASIA WITHOUT LOWER URINRY TRACT SYMP Qualifiers: Lower urinary tract symptom presence: symptoms absent Qualified Code(s): N40.0 - Benign prostatic hyperplasia without lower urinary tract symptoms Assessment/Plan IMP ACUTE ON CHRONIC HYPOXEMIC RESPIRATORY FAILURE END STAGE ILD PNEUMONIA END STAGE COPD PULMONARY HTN CKD ASHD CHF DM HTN CVA SHANTI PLAN ABX O2 TO MAINTAIN O2 SAT 90% OR GREATER INHALED BRONCHODILATORS STEROIDTAPER MONITOR LYTES,RENAL FUNCTION PT REFUSES BIPAP HOME HOSPICE DR PAALCIOS Problem List - Problems (1) Pneumonia Code(s): J18.9 - PNEUMONIA, UNSPECIFIED ORGANISM Qualifiers: Pneumonia type: due to unspecified organism Laterality: unspecified laterality Lung location: unspecified part of lung Qualified Code(s): J18.9 - Pneumonia, unspecified organism (2) Acute and chronic respiratory failure Code(s): J96.20 - ACUTE AND CHR RESP FAILURE, UNSP W HYPOXIA OR HYPERCAPNIA Qualifiers: (3) Acute and chronic respiratory failure with hypoxia Code(s): J96.21 - ACUTE AND CHRONIC RESPIRATORY FAILURE WITH HYPOXIA (4) Vjbnv-ra-panbjds kidney injury Code(s): N17.9 - ACUTE KIDNEY FAILURE, UNSPECIFIED; N18.9 - CHRONIC KIDNEY DISEASE, UNSPECIFIED Qualifiers: Acute renal failure type: unspecified Chronic kidney disease stage: unspecified stage Qualified Code(s): N17.9 - Acute kidney failure, unspecified ; N18.9 - Chronic kidney disease, unspecified; N18.9 - Chronic kidney disease, unspecified (5) CAD (coronary artery disease) Code(s): I25.10 - ATHSCL HEART DISEASE OF [place] CORONARY ARTERY W/O ANG PCTRS Qualifiers: [place] vs. transplanted heart: [place] heart Associated angina: without angina (6) CHF (congestive heart failure), NYHA class III Code(s): I50.9 - HEART FAILURE, UNSPECIFIED Qualifiers: Congestive heart failure type: systolic Congestive heart failure chronicity : chronic Qualified Code(s): I50.22 - Chronic systolic (congestive) heart failure (7) CKD (chronic kidney disease) stage 3, GFR 30-59 ml/min Code(s): N18.3 - CHRONIC KIDNEY DISEASE, STAGE 3 (MODERATE) (8) COPD (chronic obstructive pulmonary disease) Code(s): J44.9 - CHRONIC OBSTRUCTIVE PULMONARY DISEASE, UNSPECIFIED (9) Diabetes mellitus type 2 in nonobese Code(s): E11.9 - TYPE 2 DIABETES MELLITUS WITHOUT COMPLICATIONS (10) Dizziness Code(s): R42 - DIZZINESS AND GIDDINESS (11) HTN (hypertension) Code(s): I10 - ESSENTIAL (PRIMARY) HYPERTENSION Qualifiers: Hypertension type: essential hypertension Qualified Code(s): I10 - Essential (primary) hypertension (12) Pulmonary fibrosis Code(s): J84.10 - PULMONARY FIBROSIS, UNSPECIFIED (13) Sleep apnea Code(s): G47.30 - SLEEP APNEA, UNSPECIFIED (14) Acute CVA (cerebrovascular accident) Code(s): I63.9 - CEREBRAL INFARCTION, UNSPECIFIED (15) BPH (benign prostatic hyperplasia) Code(s): N40.0 - BENIGN PROSTATIC HYPERPLASIA WITHOUT LOWER URINRY TRACT SYMP Qualifiers: Lower urinary tract symptom presence: symptoms absent Qualified Code(s): N40.0 - Benign prostatic hyperplasia without lower urinary tract symptoms
--- NOTE | 2018-09-24 17:09 | PN ---
Physical Exam: SUBJECTIVE: Patient seen and examined, breathing stable, reports intermittent episodes of dyspnea. OBJECTIVE: Vital Signs Period Temp Pulse Resp BP Sys/Meraz Pulse Ox Last 24 Hr 97.3 F-97.8 F 77-90 20-22 143-152/86-90 97-97 Intake & Output 09/21/18 09/22/18 09/23/18 09/24/18 23:59 23:59 23:59 23:59 Intake Total 1690 1050 1000 1210 Output Total 1300 875 400 Balance 397 749 1873 810 Weight 192 lb 11.2 oz 203 lb 3 oz GENERAL: sitting in chair, able to speak in full sentences, mild use of accessory muscles of respiration Neck: soft, supple Chest: decreased air entry all over, unable to appreciate rales or wheezing Abdomen:soft, NT Extremities: +1 edema with ecchymotic areas Psych: pleasant, co-operative Laboratory Results - last 24 hr 09/23/18 09/23/18 09/24/18 17:52 20:48 05:55 POC Glucometer 155 223 159 09/24/18 11:15 POC Glucometer 246 Active Medications Generic Name Dose Route Start Last Admin Trade Name Freq PRN Reason Stop Dose Admin Acetaminophen 650 mg 09/18/18 15:08 Tylenol - PO Q4H PRN FEVER Albuterol Sulfate 1 amp 09/21/18 09:52 Ventolin 0.083% Nebulizer Soln - NEB Q4H PRN SHORT OF BREATH/WHEEZING Albuterol/Ipratropium 1 amp 09/21/18 12:00 09/24/18 15:09 Duoneb - NEB 1 amp RQID [facility] Administration Allopurinol 50 mg 09/19/18 10:00 09/24/18 11:00 Zyloprim - PO 50 mg DAILY [facility] Administration Alprazolam 0.25 mg 09/19/18 17:22 Xanax - PO Q12H PRN ANXIETY Aspirin 81 mg 09/19/18 10:00 09/24/18 11:02 Ecotrin - PO 81 mg DAILY [facility] Atorvastatin Calcium 20 mg 09/18/18 22:00 09/23/18 21:21 Lipitor - PO 20 mg HS [facility] Administration Clopidogrel Bisulfate 75 mg 09/19/18 10:00 09/24/18 11:00 Plavix - PO 75 mg DAILY [facility] Cyanocobalamin 200 mcg 09/19/18 10:00 09/24/18 11:05 Vitamin B12 - PO 200 mcg DAILY [facility] Docusate Sodium 100 mg 09/20/18 13:15 09/24/18 11:00 Colace - PO 100 mg BID [facility] Ezetimibe 10 mg 09/19/18 10:00 09/24/18 11:01 Zetia - PO 10 mg DAILY [facility] Furosemide 40 mg 09/24/18 10:00 09/24/18 11:03 Lasix - PO 40 mg DAILY [facility] Guaifenesin/Codeine Phosphate 5 ml 09/23/18 10:57 09/24/18 11:00 Robitussin Ac - PO 5 ml TID PRN Administration COUGH Piperacillin Sod/Tazobactam 50 mls @ 100 mls/hr 09/18/18 21:00 09/24/18 15:03 Sod 2.25 gm/ Dextrose IVPB 100 mls/hr Q6H-IV [facility] Administration Protocol Insulin Aspart 1 vial 09/18/18 16:30 09/24/18 11:19 Novolog Vial Sliding Scale - SQ 4 units ACHS [facility] Administration Protocol Insulin Detemir 30 units 09/21/18 12:50 09/24/18 06:00 Levemir Vial SQ 30 units BID@0700,2200 [facility] Lactobacillus Acidophilus 1 tab 09/19/18 10:00 09/24/18 11:00 Bacid - PO 1 tab DAILY [facility] Administration Methylprednisolone Sodium Succinate 40 mg 09/24/18 22:00 Solu-Medrol - IVPUSH Q12H [facility] Metoprolol Succinate 25 mg 09/21/18 10:00 09/24/18 11:00 Toprol Xl - PO 25 mg DAILY [facility] Administration Non-Formulary Medication 5.9 gm 09/18/18 15:15 Glycopyrrolate/Formoterol Fum [Bevespi Aerosphere Inhaler] IH ASDIR [facility] Ondansetron HCl 4 mg 09/18/18 15:08 Zofran Injection IVPUSH Q6H PRN [facility] Pantoprazole Sodium 40 mg 09/20/18 22:00 09/24/18 11:03 Protonix - PO 40 mg BID [facility] Polyethylene Glycol 17 gm 09/20/18 13:15 09/24/18 11:05 Miralax (For Daily Use) - PO 17 grams BID [facility] Ranolazine 1,000 mg 09/18/18 22:00 09/24/18 11:03 Ranexa - PO 1,000 mg BID [facility] Simethicone 80 mg 09/20/18 13:09 Mylicon - PO QID PRN DYSPEPSIA ASSESSMENT/PLAN: 72 yom with PMhx of End stage COPD, Steroid/oxygen dependent Pulmonary fibrosis/ILD, SHANTI on CPAP at night, Pulmonary HTN, CKD stage III, LV systolic dysfunction, prior admissions for CHF, CAD s/p [place], 2Stents , T2DM on Insulin, Hypercholesterolemia,recurrent admissions with dyspnea/CHF/COPD exac admitted with fall, vomitting/retching and fevers. -Suspect aspiration pneumonia -End stage COPD with exacerbation -Pulmonary fibrosis/ILD -Chronic systolic heart failure -SHANTI on CPAP -Pulmonary HTN -CKD stage III -CAD s/p [place]/PCI -IDDM -HLD Plan: Id/pulmonary/palliative care input noted. Medrol taper, PO lasix. 7 days of zosyn. Continue ASA/plavix/statin/metoprolol/ranexa/ezetemibe. Levemir/ISS. DVTPPX start heparin while inhouse Dispo d/c home hospice in 24-48 hours on po prednisone if no new concerns discussed with patient and family at [facility] in detail, all questions answered. Visit type - Emergency Visit Emergency Visit: Yes ED Registration Date: 09/18/18 Care time: The patient presented to the Emergency Department on the above date and was hospitalized for further evaluation of their emergent condition. - New Patient This patient is new to me today: Yes Date on this admission: 09/24/18 - Critical Care Critical Care patient: No - Discharge Referral Referred to [facility] Med [facility] No
[2018-09-24] MEDS: ATORVASTATIN CA 20 MG TABLET (FP) PO SCH (21:44)
[2018-09-24] MEDS: HEPARIN NA (PORCINE) 5,000 UNITS/ML 1ML VIAL SQ SCH (21:44)
[2018-09-25] MEDS ORDERED: metoPROLOL SUCCINATE 25 MG TAB.SR.24H (FP) PO ONE (01:15)
[2018-09-25] MEDS ORDERED: PIPERACILLIN/TAZOBACTAM 2.25 GM VIAL IVPB ONE ×2 (01:53→09:40)
[2018-09-25] MEDS ORDERED: DEXTROSE 5%-WATER - 50 ML IVPB ONE ×2 (01:53→09:40)
[2018-09-25] MEDS: PIPERACILLIN/TAZOB 2.25 GM 2.25 GM in DEXTROSE 5%-WATER - 50 ML IVPB SCH ×2 (02:00→09:45)
[2018-09-25] MEDS: HEPARIN NA (PORCINE) 5,000 UNITS/ML 1ML VIAL SQ SCH ×2 (06:40→14:25)
[2018-09-25] MEDS: INSULIN (LEVEMIR) 100 UNITS/ML UNITS SQ SCH ×2 (06:40→21:48)
[2018-09-25] MEDS: INSULIN SLIDING SCALE (NOVOLOG) 1 VIAL SQ SCH ×4 (06:40→21:50)
[2018-09-25] MEDS: ALBUTEROL SO4 2.5/IPRATROPIUM 0.5 INH SOL 3 ML VIAL.NEB. NEB SCH ×4 (07:44→21:45)
--- NOTE | 2018-09-25 08:54 | PN ---
Progress Note (short form) - Note Progress Note: Hospitalist to document today. Hopefully [facility] will arrange home hospice details as soon as possible.
[2018-09-25] MEDS ORDERED: RANOLAZINE E.R. 500 MG TABLET (FP) ONE ×2 (09:39→21:29)
[2018-09-25] MEDS ORDERED: PT OWN MED DRAWER 7, Y5N ONE ×2 (09:41→11:36)
[2018-09-25] MEDS: PANTOPRAZOLE 40 MG TABLET (FP) PO SCH ×2 (09:43→21:52)
[2018-09-25] MEDS: CLOPIDOGREL BISULFATE 75 MG TABLET (FP) PO SCH (09:44)
[2018-09-25] MEDS: ALLOPURINOL 100 MG TABLET (FP) PO SCH (09:44)
[2018-09-25] MEDS: DOCUSATE SODIUM 100 MG CAPSULE (FP) PO SCH ×2 (09:44→21:51)
[2018-09-25] MEDS: FUROSEMIDE 40 MG TABLET (FP) PO SCH (09:44)
[2018-09-25] MEDS: LACTOBACILLUS ACIDOPHILUS 1 TABLET PO SCH (09:44)
[2018-09-25] MEDS: RANOLAZINE E.R. 1,000 MG TABLET (FP) PO SCH ×2 (09:45→21:53)
[2018-09-25] MEDS: guaiFENesin/CODEINE 5 ML UNIT-DOSE CUPS PO PRN ×2 (09:45→21:51)
[2018-09-25] MEDS: EZETIMIBE 10 MG TABLET (FP) PO SCH (09:45)
[2018-09-25] MEDS: metoPROLOL SUCCINATE 25 MG TAB.SR.24H (FP) PO SCH (09:46)
[2018-09-25] MEDS: ASPIRIN COATED 81 MG TABLET.EC PO SCH (09:46)
[2018-09-25] MEDS: CYANOCOBALAMIN (VITAMIN B-12) 100 MCG TABLET PO SCH (09:47)
[2018-09-25] MEDS: POLYETHYLENE GLYCOL 3350 119 GM BTL PO SCH ×2 (10:58→21:55)
[2018-09-25] MEDS: methylPREDNISolone NA SUCC 40 MG/1 ML VIAL IVPUSH SCH (10:59)
[2018-09-25] MEDS ORDERED: predniSONE 20 MG TABLET (UD) PO ONE (11:07)
--- NOTE | 2018-09-25 11:10 | PN ---
Physical Exam: SUBJECTIVE: Patient seen and examined, no new complaints. OBJECTIVE: Vital Signs Period Temp Pulse Resp BP Sys/Meraz Pulse Ox Last 24 Hr 97.3 F-98.4 F 76-90 20-20 139-190/78-110 97 Intake & Output 09/22/18 09/23/18 09/24/18 09/25/18 23:59 23:59 23:59 23:59 Intake Total 1050 1000 2010 450 Output Total 875 850 Balance 175 1000 1160 450 Weight 192 lb 11.2 oz 203 lb 3 oz 202 lb 3 oz GENERAL: sitting in bed, no acute distress, no use of accessory muscles of respiration Neck: soft, supple Chest: improved air entry today, no rales or wheezing Abdomen:Soft, obese, NT Extremities edema with ecchymosis CVS:S1S2 irregular Psych; Pleasant, co-operative Laboratory Results - last 24 hr 09/24/18 09/24/18 09/24/18 11:15 17:22 21:43 POC Glucometer 246 285 252 09/25/18 06:05 POC Glucometer 155 Active Medications Generic Name Dose Route Start Last Admin Trade Name Freq PRN Reason Stop Dose Admin Acetaminophen 650 mg 09/18/18 15:08 Tylenol - PO Q4H PRN FEVER Albuterol Sulfate 1 amp 09/21/18 09:52 Ventolin 0.083% Nebulizer Soln - NEB Q4H PRN SHORT OF BREATH/WHEEZING Albuterol/Ipratropium 1 amp 09/21/18 12:00 09/25/18 07:44 Duoneb - NEB 1 amp RQID [facility] Administration Allopurinol 50 mg 09/19/18 10:00 09/25/18 09:44 Zyloprim - PO 50 mg DAILY [facility] Administration Alprazolam 0.25 mg 09/19/18 17:22 Xanax - PO Q12H PRN ANXIETY Aspirin 81 mg 09/19/18 10:00 09/25/18 09:46 Ecotrin - PO 81 mg DAILY [facility] Administration Atorvastatin Calcium 20 mg 09/18/18 22:00 09/24/18 21:44 Lipitor - PO 20 mg HS [facility] Administration Clopidogrel Bisulfate 75 mg 09/19/18 10:00 09/25/18 09:44 Plavix - PO 75 mg DAILY [facility] Administration Cyanocobalamin 200 mcg 09/19/18 10:00 09/25/18 09:47 Vitamin B12 - PO 200 mcg DAILY [facility] Administration Docusate Sodium 100 mg 09/20/18 13:15 09/25/18 09:44 Colace - PO 100 mg BID [facility] Administration Ezetimibe 10 mg 09/19/18 10:00 09/25/18 09:45 Zetia - PO 10 mg DAILY [facility] Administration Furosemide 40 mg 09/24/18 10:00 09/25/18 09:44 Lasix - PO 40 mg DAILY [facility] Administration Guaifenesin/Codeine Phosphate 5 ml 09/23/18 10:57 09/25/18 09:45 Robitussin Ac - PO 5 ml TID PRN Administration COUGH Heparin Sodium (Porcine) 5,000 unit 09/24/18 22:00 09/25/18 06:40 Heparin - SQ 5,000 unit TID [facility] Administration Insulin Aspart 1 vial 09/18/18 16:30 09/25/18 06:40 Novolog Vial Sliding Scale - SQ 2 units ACHS [facility] Administration Protocol Insulin Detemir 30 units 09/21/18 12:50 09/25/18 06:40 Levemir Vial SQ 30 units BID@0700,2200 [facility] Administration Lactobacillus Acidophilus 1 tab 09/19/18 10:00 09/25/18 09:44 Bacid - PO 1 tab DAILY [facility] Administration Metoprolol Succinate 25 mg 09/21/18 10:00 09/25/18 09:46 Toprol Xl - PO 25 mg DAILY [facility] Administration Non-Formulary Medication 5.9 gm 09/18/18 15:15 Glycopyrrolate/Formoterol Fum [Bevespi Aerosphere Inhaler] IH ASDIR [facility] Ondansetron HCl 4 mg 09/18/18 15:08 Zofran Injection IVPUSH Q6H PRN NAUSEA Pantoprazole Sodium 40 mg 09/20/18 22:00 09/25/18 09:43 Protonix - PO 40 mg BID [facility] Administration Polyethylene Glycol 17 gm 09/20/18 13:15 09/25/18 10:58 Miralax (For Daily Use) - PO 17 grams BID [facility] Administration Prednisone 60 mg 09/26/18 10:00 Deltasone - PO DAILY [facility] Prednisone 20 mg 09/25/18 11:07 Deltasone - PO 09/25/18 11:08 ONCE ONE Ranolazine 1,000 mg 09/18/18 22:00 09/25/18 09:45 Ranexa - PO 1,000 mg BID [facility] Administration Simethicone 80 mg 09/20/18 13:09 Mylicon - PO QID PRN DYSPEPSIA ASSESSMENT/PLAN: 72 yom with PMhx of End stage COPD, Steroid/oxygen dependent Pulmonary fibrosis/ILD, SHANTI on CPAP at night, Pulmonary HTN, CKD stage III, LV systolic dysfunction, prior admissions for CHF, CAD s/p [place], 2Stents , T2DM on Insulin, Hypercholesterolemia,recurrent admissions with dyspnea/CHF/COPD exac admitted with fall, vomitting/retching and fevers. -Suspected aspiration pneumonia -End stage COPD with exacerbation -Pulmonary fibrosis/ILD -Chronic systolic heart failure -SHANTI on CPAP -Pulmonary HTN -CKD stage III -CAD s/p [place]/PCI -IDDM -HLD Plan: Id/pulmonary/palliative care input noted. Change to PO prednisone, PO lasix. s/p 7 days of zosyn, dc abx.. Continue ASA/plavix/statin/metoprolol/ranexa/ezetemibe. Levemir/ISS. DVTPPX start heparin while inhouse Dispo d/c home hospice in 24 hours on po prednisone if no new events and home hospice arrangements made. discussed with patient in detail, all questions answered. Visit type - Emergency Visit Emergency Visit: Yes ED Registration Date: 09/18/18 Care time: The patient presented to the Emergency Department on the above date and was hospitalized for further evaluation of their emergent condition. - New Patient This patient is new to me today: No - Critical Care Critical Care patient: No - Discharge Referral Referred to [facility] Med P.C.: No
[2018-09-25] MEDS ORDERED: INSULIN (NOVOLOG) ASPART 100 UNITS/ML 10ML VIAL ONE ×2 (11:37→21:29)
--- NOTE | 2018-09-25 11:45 | PN ---
Progress Note (short form) - Note Progress Note: PULMONARY Breathing slightly better today. No fevers or chills. Vital Signs Period Temp Pulse Resp BP Sys/Meraz Pulse Ox Last 24 Hr 97.3 F-98.4 F 76-90 20-20 139-190/78-110 97 Gen: tachypneic with speaking Heart: RRR Lung: bibasilar rales Abd: soft, nontender Ext: no edema CBC, BMP 09/23/18 06:15 09/23/18 06:15 Active Medications Acetaminophen (Tylenol -) 650 mg PO Q4H PRN PRN Reason: FEVER Albuterol Sulfate (Ventolin 0.083% Nebulizer Soln -) 1 amp NEB Q4H PRN PRN Reason: SHORT OF BREATH/WHEEZING Albuterol/Ipratropium (Duoneb -) 1 amp NEB RQID [facility] Last Admin: 09/25/18 11:24 Dose: 1 amp Allopurinol (Zyloprim -) 50 mg PO DAILY [facility] Last Admin: 09/25/18 09:44 Dose: 50 mg Alprazolam (Xanax -) 0.25 mg PO Q12H PRN PRN Reason: ANXIETY Aspirin (Ecotrin -) 81 mg PO DAILY [facility] Last Admin: 09/25/18 09:46 Dose: 81 mg Atorvastatin Calcium (Lipitor -) 20 mg PO HS [facility] Last Admin: 09/24/18 21:44 Dose: 20 mg Clopidogrel Bisulfate (Plavix -) 75 mg PO DAILY [facility] Last Admin: 09/25/18 09:44 Dose: 75 mg Cyanocobalamin (Vitamin B12 -) 200 mcg PO DAILY [facility] Last Admin: 09/25/18 09:47 Dose: 200 mcg Docusate Sodium (Colace -) 100 mg PO BID [facility] Last Admin: 09/25/18 09:44 Dose: 100 mg Ezetimibe (Zetia -) 10 mg PO DAILY [facility] Last Admin: 09/25/18 09:45 Dose: 10 mg Furosemide (Lasix -) 40 mg PO DAILY [facility] Last Admin: 09/25/18 09:44 Dose: 40 mg Guaifenesin/Codeine Phosphate (Robitussin Ac -) 5 ml PO TID PRN PRN Reason: COUGH Last Admin: 09/25/18 09:45 Dose: 5 ml Heparin Sodium (Porcine) (Heparin -) 5,000 unit SQ TID [facility] Last Admin: 09/25/18 06:40 Dose: 5,000 unit Insulin Aspart (Novolog Vial Sliding Scale -) 1 vial SQ ACHS [facility]; Protocol Last Admin: 09/25/18 06:40 Dose: 2 units Insulin Detemir (Levemir Vial) 30 units SQ BID@0700,2200 [facility] Last Admin: 09/25/18 06:40 Dose: 30 units Lactobacillus Acidophilus (Bacid -) 1 tab PO DAILY [facility] Last Admin: 09/25/18 09:44 Dose: 1 tab Metoprolol Succinate (Toprol Xl -) 25 mg PO DAILY [facility] Last Admin: 09/25/18 09:46 Dose: 25 mg Non-Formulary Medication (Glycopyrrolate/Formoterol Fum [Bevespi Aerosphere Inhaler]) 5.9 gm IH ASDIR [facility] Ondansetron HCl (Zofran Injection) 4 mg IVPUSH Q6H PRN PRN Reason: NAUSEA Pantoprazole Sodium (Protonix -) 40 mg PO BID [facility] Last Admin: 09/25/18 09:43 Dose: 40 mg Polyethylene Glycol (Miralax (For Daily Use) -) 17 gm PO BID [facility] Last Admin: 09/25/18 10:58 Dose: 17 grams Prednisone (Deltasone -) 60 mg PO DAILY [facility] Prednisone (Deltasone -) 20 mg PO ONCE ONE Stop: 09/25/18 11:08 Ranolazine (Ranexa -) 1,000 mg PO BID [facility] Last Admin: 09/25/18 09:45 Dose: 1,000 mg Simethicone (Mylicon -) 80 mg PO QID PRN PRN Reason: DYSPEPSIA A/P Acute on Chronic Hypoxic Respiratory Failure Acute Exacerbation of Interstitial Lung Disease Acute COPD Exacerbation Pneumonia CKD CAD LV Systolic Dysfunction Pulmonary HTN HTN DM h/o CVA SHANTI - s/p antibiotics - prednisone taper - inhaled bronchodilators - O2 to keep Spo2 >90% - glucose control - DVT prophylaxis - for hospice placement
[2018-09-25 12:39] VITALS: BMI 31.6
[2018-09-25] MEDS: ATORVASTATIN CA 20 MG TABLET (FP) PO SCH (21:52)
[2018-09-26] MEDS: INSULIN (LEVEMIR) 100 UNITS/ML UNITS SQ SCH ×2 (06:23→21:59)
[2018-09-26] MEDS: INSULIN SLIDING SCALE (NOVOLOG) 1 VIAL SQ SCH ×4 (06:24→22:01)
[2018-09-26] MEDS: ALBUTEROL SO4 2.5/IPRATROPIUM 0.5 INH SOL 3 ML VIAL.NEB. NEB SCH (07:54)
--- NOTE | 2018-09-26 09:09 | PN ---
Progress Note (short form) - Note Progress Note: PULMONARY Breathing about the same today. No fevers or chills. Saturating 90% on 5L nasal cannula. Vital Signs Period Temp Pulse Resp BP Sys/Meraz Pulse Ox Last 24 Hr 97.5 F-98.1 F 71-91 20-22 112-165/66-92 96-100 Gen: less tachypneic with speaking Heart: RRR Lung: bibasilar rales Abd: soft, nontender Ext: no edema CBC, BMP 09/23/18 06:15 09/23/18 06:15 Active Medications Acetaminophen (Tylenol -) 650 mg PO Q4H PRN PRN Reason: FEVER Albuterol Sulfate (Ventolin 0.083% Nebulizer Soln -) 1 amp NEB Q4H PRN PRN Reason: SHORT OF BREATH/WHEEZING Albuterol/Ipratropium (Duoneb -) 1 amp NEB RQID [facility] Last Admin: 09/26/18 07:54 Dose: 1 amp Allopurinol (Zyloprim -) 50 mg PO DAILY [facility] Last Admin: 09/25/18 09:44 Dose: 50 mg Alprazolam (Xanax -) 0.25 mg PO Q12H PRN PRN Reason: ANXIETY Aspirin (Ecotrin -) 81 mg PO DAILY [facility] Last Admin: 09/25/18 09:46 Dose: 81 mg Atorvastatin Calcium (Lipitor -) 20 mg PO HS [facility] Last Admin: 09/25/18 21:52 Dose: 20 mg Clopidogrel Bisulfate (Plavix -) 75 mg PO DAILY [facility] Last Admin: 09/25/18 09:44 Dose: 75 mg Cyanocobalamin (Vitamin B12 -) 200 mcg PO DAILY [facility] Last Admin: 09/25/18 09:47 Dose: 200 mcg Docusate Sodium (Colace -) 100 mg PO BID [facility] Last Admin: 09/25/18 21:51 Dose: 100 mg Ezetimibe (Zetia -) 10 mg PO DAILY [facility] Last Admin: 09/25/18 09:45 Dose: 10 mg Furosemide (Lasix -) 40 mg PO DAILY [facility] Last Admin: 09/25/18 09:44 Dose: 40 mg Guaifenesin/Codeine Phosphate (Robitussin Ac -) 5 ml PO TID PRN PRN Reason: COUGH Last Admin: 09/25/18 21:51 Dose: 5 ml Insulin Aspart (Novolog Vial Sliding Scale -) 1 vial SQ [facility]; Protocol Last Admin: 09/26/18 06:24 Dose: 2 units Insulin Detemir (Levemir Vial) 30 units SQ BID@0700,2200 [facility] Last Admin: 09/26/18 06:23 Dose: 30 units Lactobacillus Acidophilus (Bacid -) 1 tab PO DAILY [facility] Last Admin: 09/25/18 09:44 Dose: 1 tab Metoprolol Succinate (Toprol Xl -) 25 mg PO DAILY [facility] Last Admin: 09/25/18 09:46 Dose: 25 mg Non-Formulary Medication (Glycopyrrolate/Formoterol Fum [Bevespi Aerosphere Inhaler]) 5.9 gm IH ASDIR [facility] Ondansetron HCl (Zofran Injection) 4 mg IVPUSH Q6H PRN PRN Reason: NAUSEA Pantoprazole Sodium (Protonix -) 40 mg PO BID [facility] Last Admin: 09/25/18 21:52 Dose: 40 mg Polyethylene Glycol (Miralax (For Daily Use) -) 17 gm PO BID [facility] Last Admin: 09/25/18 21:55 Dose: 17 grams Prednisone (Deltasone -) 60 mg PO DAILY [facility] Ranolazine (Ranexa -) 1,000 mg PO BID [facility] Last Admin: 09/25/18 21:53 Dose: 1,000 mg Simethicone (Mylicon -) 80 mg PO QID PRN PRN Reason: DYSPEPSIA A/P Acute on Chronic Hypoxic Respiratory Failure Acute Exacerbation of Interstitial Lung Disease Acute COPD Exacerbation Pneumonia CKD CAD LV Systolic Dysfunction Pulmonary HTN HTN DM h/o CVA SHANTI - s/p antibiotics - prednisone taper - inhaled bronchodilators - O2 to keep Spo2 >90% - glucose control - DVT prophylaxis - for home hospice placement
--- NOTE | 2018-09-26 09:50 | PN ---
Progress Note (short form) - Note Progress Note: Hospitalist to document today. Hopefully home hospice today or Saturday. More rales and increased weight; to increase lasix to 80mg a day; terrible bleeding from abdominal wall injection sites; to D/C.
[2018-09-26] MEDS ORDERED: RANOLAZINE E.R. 500 MG TABLET (FP) ONE ×2 (10:59→21:08)
[2018-09-26] MEDS: DOCUSATE SODIUM 100 MG CAPSULE (FP) PO SCH ×2 (11:07→21:58)
[2018-09-26] MEDS: RANOLAZINE E.R. 1,000 MG TABLET (FP) PO SCH ×2 (11:07→22:02)
[2018-09-26] MEDS: LACTOBACILLUS ACIDOPHILUS 1 TABLET PO SCH (11:08)
[2018-09-26] MEDS: predniSONE 20 MG TABLET (UD) PO SCH (11:08)
[2018-09-26] MEDS: PANTOPRAZOLE 40 MG TABLET (FP) PO SCH ×2 (11:09→21:58)
[2018-09-26] MEDS: POLYETHYLENE GLYCOL 3350 119 GM BTL PO SCH ×2 (11:09→22:03)
[2018-09-26] MEDS: ASPIRIN COATED 81 MG TABLET.EC PO SCH (11:09)
[2018-09-26] MEDS: CLOPIDOGREL BISULFATE 75 MG TABLET (FP) PO SCH (11:09)
[2018-09-26] MEDS: FUROSEMIDE 40 MG TABLET (FP) PO SCH (11:09)
[2018-09-26] MEDS: ALLOPURINOL 100 MG TABLET (FP) PO SCH (11:10)
[2018-09-26] MEDS: CYANOCOBALAMIN (VITAMIN B-12) 100 MCG TABLET PO SCH (11:10)
[2018-09-26] MEDS: metoPROLOL SUCCINATE 25 MG TAB.SR.24H (FP) PO SCH (11:10)
[2018-09-26] MEDS: EZETIMIBE 10 MG TABLET (FP) PO SCH (11:10)
[2018-09-26] MEDS ORDERED: PT OWN MED DRAWER 7, Y5N ONE (11:18)
--- NOTE | 2018-09-26 14:26 | PN ---
Physical Exam: SUBJECTIVE: Patient seen and examined, intermittent episodes of dyspnea, overall the same. OBJECTIVE: Vital Signs Period Temp Pulse Resp BP Sys/Meraz Pulse Ox Last 24 Hr 97.5 F-98.1 F 71-91 20-22 112-165/66-92 98-100 Intake & Output 09/23/18 09/24/18 09/25/18 09/26/18 23:59 23:59 23:59 23:59 Intake Total 1000 2009 2049 380 Output Total 894 783 9457 Balance 1000 1160 1150 -620 Weight 203 lb 3 oz 202 lb 205 lb 7 oz GENERAL: sitting in bed, tachypneic while talking Chest: bibasilar fine rales, improved air entry, no wheezing Abdomen:soft, obese, NT Extremities: edema with ecchymotic areas Neck: soft, supple CVS:S1S2 regular Laboratory Results - last 24 hr 09/25/18 09/25/18 09/26/18 17:13 21:44 06:21 POC Glucometer 243 321 180 09/26/18 11:35 POC Glucometer 95 Active Medications Generic Name Dose Route Start Last Admin Trade Name Freq PRN Reason Stop Dose Admin Acetaminophen 650 mg 09/18/18 15:08 Tylenol - PO Q4H PRN FEVER Allopurinol 50 mg 09/19/18 10:00 09/26/18 11:10 Zyloprim - PO 50 mg DAILY [facility] Administration Alprazolam 0.25 mg 09/19/18 17:22 Xanax - PO Q12H PRN ANXIETY Aspirin 81 mg 09/19/18 10:00 09/26/18 11:09 Ecotrin - PO 81 mg DAILY [facility] Administration Atorvastatin Calcium 20 mg 09/18/18 22:00 09/25/18 21:52 Lipitor - PO 20 mg HS [facility] Administration Clopidogrel Bisulfate 75 mg 09/19/18 10:00 09/26/18 11:09 Plavix - PO 75 mg DAILY [facility] Administration Cyanocobalamin 200 mcg 09/19/18 10:00 09/26/18 11:10 Vitamin B12 - PO 200 mcg DAILY [facility] Administration Docusate Sodium 100 mg 09/20/18 13:15 09/26/18 11:07 Colace - PO 100 mg BID [facility] Administration Ezetimibe 10 mg 09/19/18 10:00 09/26/18 11:10 Zetia - PO 10 mg DAILY [facility] Administration Furosemide 80 mg 09/26/18 09:52 09/26/18 11:09 Lasix - PO 80 mg DAILY [facility] Administration Guaifenesin/Codeine Phosphate 5 ml 09/23/18 10:57 09/25/18 21:51 Robitussin Ac - PO 5 ml TID PRN Administration COUGH Insulin Aspart 1 vial 09/18/18 16:30 09/26/18 13:18 Novolog Vial Sliding Scale - SQ Not Given ACHS [facility] Protocol Insulin Detemir 30 units 09/21/18 12:50 09/26/18 06:23 Levemir Vial SQ 30 units BID@0700,2200 [facility] Administration Lactobacillus Acidophilus 1 tab 09/19/18 10:00 09/26/18 11:08 Bacid - PO 1 tab DAILY [facility] Administration Metoprolol Succinate 25 mg 09/21/18 10:00 09/26/18 11:10 Toprol Xl - PO 25 mg DAILY [facility] Administration Non-Formulary Medication 5.9 gm 09/18/18 15:15 Glycopyrrolate/Formoterol Fum [Bevespi Aerosphere Inhaler] IH ASDIR [facility] Ondansetron HCl 4 mg 09/18/18 15:08 Zofran Injection IVPUSH Q6H PRN NAUSEA Pantoprazole Sodium 40 mg 09/20/18 22:00 09/26/18 11:09 Protonix - PO 40 mg BID [facility] Administration Polyethylene Glycol 17 gm 09/20/18 13:15 09/26/18 11:09 Miralax (For Daily Use) - PO 119 grams BID [facility] Administration Prednisone 60 mg 09/26/18 10:00 09/26/18 11:08 Deltasone - PO 60 mg DAILY [facility] Administration Ranolazine 1,000 mg 09/18/18 22:00 09/26/18 11:07 Ranexa - PO 1,000 mg BID [facility] Administration Simethicone 80 mg 09/20/18 13:09 Mylicon - PO QID PRN DYSPEPSIA Microbiology 09/18/18 12:14 Blood - Peripheral Venous Blood Culture - Final NO GROWTH AFTER 5 DAYS INCUBATION 09/18/18 12:14 Blood - Peripheral Venous Blood Culture - Final NO GROWTH AFTER 5 DAYS INCUBATION 09/18/18 19:06 Sputum - Expectorated Gram Stain - Final 09/18/18 19:06 Sputum - Expectorated Sputum Culture - Final NORMAL RESPIRATORY LYNETTE ASSESSMENT/PLAN: 72 yom with PMhx of End stage COPD, Steroid/oxygen dependent Pulmonary fibrosis/ILD, SHANTI on CPAP at night, Pulmonary HTN, CKD stage III, LV systolic dysfunction, prior admissions for CHF, CAD s/p [place], 2Stents , T2DM on Insulin, Hypercholesterolemia,recurrent admissions with dyspnea/CHF/COPD exac admitted with fall, vomitting/retching and fevers. -Suspected aspiration pneumonia -End stage COPD with exacerbation -Pulmonary fibrosis/ILD -Chronic systolic heart failure -SHANTI on CPAP -Pulmonary HTN -CKD stage III -CAD s/p [place]/PCI -IDDM -HLD Plan: Id/pulmonary/palliative care input noted. Change to PO prednisone, Increase lasix 80 mg daily. s/p 7 days of zosyn, off abx. Continue ASA/plavix/statin/metoprolol/ranexa/ezetemibe. Levemir/ISS. DVTPPX declines heparin given prior h/o concerning abdominal wall bleed, d/sarabjit. Dispo plan for dc home with hospice Saturday if arrangements made. Discussed with patient, nursing and social work. Visit type - Emergency Visit Emergency Visit: Yes ED Registration Date: 09/18/18 Care time: The patient presented to the Emergency Department on the above date and was hospitalized for further evaluation of their emergent condition. - New Patient This patient is new to me today: No - Critical Care Critical Care patient: No - Discharge Referral Referred to [facility] Med P.C.: No
[2018-09-26] MEDS: ATORVASTATIN CA 20 MG TABLET (FP) PO SCH (21:57)
[2018-09-26] MEDS: guaiFENesin/CODEINE 5 ML UNIT-DOSE CUPS PO PRN (22:05)
[2018-09-27] MEDS: INSULIN SLIDING SCALE (NOVOLOG) 1 VIAL SQ SCH ×4 (06:19→21:37)
[2018-09-27] MEDS: INSULIN (LEVEMIR) 100 UNITS/ML UNITS SQ SCH ×2 (06:19→21:37)
[2018-09-27] MEDS ORDERED: INSULIN (NOVOLOG) ASPART 100 UNITS/ML 10ML VIAL ONE (07:07)
[2018-09-27] MEDS ORDERED: RANOLAZINE E.R. 500 MG TABLET (FP) ONE (11:04)
[2018-09-27] MEDS ORDERED: PT OWN MED DRAWER 7, Y5N ONE ×2 (11:06→23:01)
[2018-09-27] MEDS: ALLOPURINOL 100 MG TABLET (FP) PO SCH (12:02)
[2018-09-27] MEDS: LACTOBACILLUS ACIDOPHILUS 1 TABLET PO SCH (12:02)
[2018-09-27] MEDS: FUROSEMIDE 40 MG TABLET (FP) PO SCH (12:03)
[2018-09-27] MEDS: CLOPIDOGREL BISULFATE 75 MG TABLET (FP) PO SCH (12:03)
[2018-09-27] MEDS: DOCUSATE SODIUM 100 MG CAPSULE (FP) PO SCH ×2 (12:03→21:37)
[2018-09-27] MEDS: predniSONE 20 MG TABLET (UD) PO SCH (12:03)
[2018-09-27] MEDS: POLYETHYLENE GLYCOL 3350 119 GM BTL PO SCH ×2 (12:04→21:38)
[2018-09-27] MEDS: PANTOPRAZOLE 40 MG TABLET (FP) PO SCH ×2 (12:04→21:37)
[2018-09-27] MEDS: RANOLAZINE E.R. 1,000 MG TABLET (FP) PO SCH ×2 (12:04→21:37)
[2018-09-27] MEDS: metoPROLOL SUCCINATE 25 MG TAB.SR.24H (FP) PO SCH (12:04)
[2018-09-27] MEDS: EZETIMIBE 10 MG TABLET (FP) PO SCH (12:05)
[2018-09-27] MEDS: ASPIRIN COATED 81 MG TABLET.EC PO SCH (12:06)
[2018-09-27] MEDS: CYANOCOBALAMIN (VITAMIN B-12) 100 MCG TABLET PO SCH (12:07)
--- NOTE | 2018-09-27 13:08 | PN ---
Physical Exam: SUBJECTIVE: Patient seen and examined, dyspneic with activity. Overall unchanged. OBJECTIVE: Vital Signs Period Temp Pulse Resp BP Sys/Meraz Pulse Ox Last 24 Hr 97.7 F-97.9 F 77-82 22-22 116-142/68-87 100 Intake & Output 09/24/18 09/25/18 09/26/18 09/27/18 23:59 23:59 23:59 23:59 Intake Total 2009 2049 1600 Output Total 257 969 7815 Balance 1160 1150 -400 Weight 203 lb 3 oz 202 lb 205 lb 7 oz GENERAL: sitting in bed, tachypneic while talking Chest: bibasilar fine rales, overall improved air entry, no wheezing Abdomen:soft, obese, NT Extremities: edema with ecchymotic areas Neck: soft, supple CVS:S1S2 regular Laboratory Results - last 24 hr 09/26/18 09/26/18 09/27/18 16:51 21:55 06:13 POC Glucometer 94 156 51 09/27/18 09/27/18 06:41 11:19 POC Glucometer 104 226 Active Medications Generic Name Dose Route Start Last Admin Trade Name Freq PRN Reason Stop Dose Admin Acetaminophen 650 mg 09/18/18 15:08 Tylenol - PO Q4H PRN FEVER Allopurinol 50 mg 09/19/18 10:00 09/27/18 12:02 Zyloprim - PO 50 mg DAILY [facility] Administration Alprazolam 0.25 mg 09/19/18 17:22 Xanax - PO Q12H PRN ANXIETY Aspirin 81 mg 09/19/18 10:00 09/27/18 12:06 Ecotrin - PO 81 mg DAILY [facility] Administration Atorvastatin Calcium 20 mg 09/18/18 22:00 09/26/18 21:57 Lipitor - PO 20 mg HS [facility] Administration Clopidogrel Bisulfate 75 mg 09/19/18 10:00 09/27/18 12:03 Plavix - PO 75 mg DAILY [facility] Administration Cyanocobalamin 200 mcg 09/19/18 10:00 09/27/18 12:07 Vitamin B12 - PO 200 mcg DAILY [facility] Administration Docusate Sodium 100 mg 09/20/18 13:15 09/27/18 12:03 Colace - PO 100 mg BID [facility] Administration Ezetimibe 10 mg 09/19/18 10:00 09/27/18 12:05 Zetia - PO 10 mg DAILY [facility] Administration Furosemide 80 mg 09/26/18 09:52 09/27/18 12:03 Lasix - PO 80 mg DAILY [facility] Administration Guaifenesin/Codeine Phosphate 5 ml 09/23/18 10:57 09/26/18 22:05 Robitussin Ac - PO 5 ml TID PRN Administration COUGH Insulin Aspart 1 vial 09/18/18 16:30 09/27/18 12:08 Novolog Vial Sliding Scale - SQ 4 units ACHS [facility] Administration Protocol Insulin Detemir 30 units 09/21/18 12:50 09/27/18 06:19 Levemir Vial SQ Not Given BID@0700,2200 [facility] Lactobacillus Acidophilus 1 tab 09/19/18 10:00 09/27/18 12:02 Bacid - PO 1 tab DAILY [facility] Administration Metoprolol Succinate 25 mg 09/21/18 10:00 09/27/18 12:04 Toprol Xl - PO 25 mg DAILY [facility] Administration Non-Formulary Medication 5.9 gm 09/18/18 15:15 Glycopyrrolate/Formoterol Fum [Bevespi Aerosphere Inhaler] IH ASDIR [facility] Ondansetron HCl 4 mg 09/18/18 15:08 Zofran Injection IVPUSH Q6H PRN NAUSEA Pantoprazole Sodium 40 mg 09/20/18 22:00 09/27/18 12:04 Protonix - PO 40 mg BID [facility] Administration Polyethylene Glycol 17 gm 09/20/18 13:15 09/27/18 12:04 Miralax (For Daily Use) - PO 17 grams BID [facility] Administration Prednisone 60 mg 09/26/18 10:00 09/27/18 12:03 Deltasone - PO 60 mg DAILY [facility] Administration Ranolazine 1,000 mg 09/18/18 22:00 09/27/18 12:04 Ranexa - PO 1,000 mg BID [facility] Administration Simethicone 80 mg 09/20/18 13:09 Mylicon - PO QID PRN DYSPEPSIA ASSESSMENT/PLAN: 72 yom with PMhx of End stage COPD, Steroid/oxygen dependent Pulmonary fibrosis/ILD, SHANTI on CPAP at night, Pulmonary HTN, CKD stage III, LV systolic dysfunction, prior admissions for CHF, CAD s/p [place], 2Stents , T2DM on Insulin, Hypercholesterolemia,recurrent admissions with dyspnea/CHF/COPD exac admitted with fall, vomitting/retching and fevers. -Suspected aspiration pneumonia -End stage COPD with exacerbation -Pulmonary fibrosis/ILD -Chronic systolic heart failure -SHANTI on CPAP -Pulmonary HTN -CKD stage III -CAD s/p [place]/PCI -IDDM -HLD Plan: Id/pulmonary/palliative care input noted. PO prednisone with slow taper, Lasix 80 mg daily. s/p 7 days of zosyn, off abx. Continue ASA/plavix/statin/metoprolol/ranexa/ezetemibe. Levemir/ISS. DVTPPX declines heparin given prior h/o concerning abdominal wall bleed, d/sarabjit. Dispo plan for dc home with hospice Saturday if arrangements made. Discussed with patient, nursing Visit type - Emergency Visit Emergency Visit: Yes ED Registration Date: 09/18/18 Care time: The patient presented to the Emergency Department on the above date and was hospitalized for further evaluation of their emergent condition. - New Patient This patient is new to me today: No - Critical Care Critical Care patient: No - Discharge Referral Referred to [facility] Med P.C.: No
--- NOTE | 2018-09-27 13:12 | PN ---
Progress Note (short form) - Note Progress Note: PULMONARY Breathing stable at rest, dyspneic with minimal exertion. No fevers or chills. Saturating 90% on 5L nasal cannula. Vital Signs Period Temp Pulse Resp BP Sys/Meraz Pulse Ox Last 24 Hr 97.7 F-97.9 F 77-82 22-22 116-142/68-87 100 Gen: less tachypneic with speaking Heart: RRR Lung: bibasilar rales Abd: soft, nontender Ext: no edema CBC, BMP 09/23/18 06:15 09/23/18 06:15 Active Medications Acetaminophen (Tylenol -) 650 mg PO Q4H PRN PRN Reason: FEVER Allopurinol (Zyloprim -) 50 mg PO DAILY [facility] Last Admin: 09/27/18 12:02 Dose: 50 mg Alprazolam (Xanax -) 0.25 mg PO Q12H PRN PRN Reason: ANXIETY Aspirin (Ecotrin -) 81 mg PO DAILY [facility] Last Admin: 09/27/18 12:06 Dose: 81 mg Atorvastatin Calcium (Lipitor -) 20 mg PO HS [facility] Last Admin: 09/26/18 21:57 Dose: 20 mg Clopidogrel Bisulfate (Plavix -) 75 mg PO DAILY [facility] Last Admin: 09/27/18 12:03 Dose: 75 mg Cyanocobalamin (Vitamin B12 -) 200 mcg PO DAILY [facility] Last Admin: 09/27/18 12:07 Dose: 200 mcg Docusate Sodium (Colace -) 100 mg PO BID [facility] Last Admin: 09/27/18 12:03 Dose: 100 mg Ezetimibe (Zetia -) 10 mg PO DAILY [facility] Last Admin: 09/27/18 12:05 Dose: 10 mg Furosemide (Lasix -) 80 mg PO DAILY [facility] Last Admin: 09/27/18 12:03 Dose: 80 mg Guaifenesin/Codeine Phosphate (Robitussin Ac -) 5 ml PO TID PRN PRN Reason: COUGH Last Admin: 09/26/18 22:05 Dose: 5 ml Insulin Aspart (Novolog Vial Sliding Scale -) 1 vial SQ ACHS [facility]; Protocol Last Admin: 09/27/18 12:08 Dose: 4 units Insulin Detemir (Levemir Vial) 30 units SQ BID@0700,2200 [facility] Last Admin: 09/27/18 06:19 Dose: Not Given Lactobacillus Acidophilus (Bacid -) 1 tab PO DAILY [facility] Last Admin: 09/27/18 12:02 Dose: 1 tab Metoprolol Succinate (Toprol Xl -) 25 mg PO DAILY [facility] Last Admin: 09/27/18 12:04 Dose: 25 mg Non-Formulary Medication (Glycopyrrolate/Formoterol Fum [Bevespi Aerosphere Inhaler]) 5.9 gm IH ASDIR [facility] Ondansetron HCl (Zofran Injection) 4 mg IVPUSH Q6H PRN PRN Reason: NAUSEA Pantoprazole Sodium (Protonix -) 40 mg PO BID [facility] Last Admin: 09/27/18 12:04 Dose: 40 mg Polyethylene Glycol (Miralax (For Daily Use) -) 17 gm PO BID [facility] Last Admin: 09/27/18 12:04 Dose: 17 grams Prednisone (Deltasone -) 60 mg PO DAILY [facility] Last Admin: 09/27/18 12:03 Dose: 60 mg Ranolazine (Ranexa -) 1,000 mg PO BID [facility] Last Admin: 09/27/18 12:04 Dose: 1,000 mg Simethicone (Mylicon -) 80 mg PO QID PRN PRN Reason: DYSPEPSIA A/P Acute on Chronic Hypoxic Respiratory Failure Acute Exacerbation of Interstitial Lung Disease Acute COPD Exacerbation Pneumonia CKD CAD LV Systolic Dysfunction Pulmonary HTN HTN DM h/o CVA SHANTI - s/p antibiotics - prednisone taper - inhaled bronchodilators - O2 to keep Spo2 >90% - glucose control - DVT prophylaxis - for home hospice placement
[2018-09-27] MEDS: ATORVASTATIN CA 20 MG TABLET (FP) PO SCH (21:37)
[2018-09-28] MEDS: INSULIN (LEVEMIR) 100 UNITS/ML UNITS SQ SCH (06:24)
[2018-09-28] MEDS: INSULIN SLIDING SCALE (NOVOLOG) 1 VIAL SQ SCH ×4 (06:24→21:07)
[2018-09-28] MEDS ORDERED: RANOLAZINE E.R. 500 MG TABLET (FP) ONE (09:03)
[2018-09-28] MEDS: ALLOPURINOL 100 MG TABLET (FP) PO SCH (10:34)
[2018-09-28] MEDS: DOCUSATE SODIUM 100 MG CAPSULE (FP) PO SCH ×2 (10:35→21:08)
[2018-09-28] MEDS: FUROSEMIDE 40 MG TABLET (FP) PO SCH (10:35)
[2018-09-28] MEDS: ASPIRIN COATED 81 MG TABLET.EC PO SCH (10:35)
[2018-09-28] MEDS: CLOPIDOGREL BISULFATE 75 MG TABLET (FP) PO SCH (10:35)
[2018-09-28] MEDS: predniSONE 20 MG TABLET (UD) PO SCH (10:35)
[2018-09-28] MEDS: PANTOPRAZOLE 40 MG TABLET (FP) PO SCH ×2 (10:35→21:09)
[2018-09-28] MEDS: LACTOBACILLUS ACIDOPHILUS 1 TABLET PO SCH (10:35)
[2018-09-28] MEDS: metoPROLOL SUCCINATE 25 MG TAB.SR.24H (FP) PO SCH (10:35)
[2018-09-28] MEDS: CYANOCOBALAMIN (VITAMIN B-12) 100 MCG TABLET PO SCH (10:36)
[2018-09-28] MEDS: RANOLAZINE E.R. 1,000 MG TABLET (FP) PO SCH ×2 (10:36→21:09)
[2018-09-28] MEDS: EZETIMIBE 10 MG TABLET (FP) PO SCH (10:36)
[2018-09-28] MEDS: POLYETHYLENE GLYCOL 3350 119 GM BTL PO SCH ×2 (10:36→21:13)
--- NOTE | 2018-09-28 11:38 | PN ---
Physical Exam: SUBJECTIVE: Patient seen and examined, overall breathing with some improvement. Still short of breath with activity. OBJECTIVE: Vital Signs Period Temp Pulse Resp BP Sys/Meraz Pulse Ox Last 24 Hr 97.5 F-98.2 F 66-87 20-24 127-153/69-89 100 Intake & Output 09/25/18 09/26/18 09/27/18 09/28/18 23:59 23:59 23:59 23:59 Intake Total 2050 1600 710 Output Total 900 2000 1000 250 Balance 1150 -400 -290 -250 Weight 202 lb 205 lb 7 oz 203 lb 6.4 oz GENERAL: sitting in bed, tachypneic while talking Chest: bibasilar fine rales, overall improved air entry, no wheezing Abdomen:soft, obese, NT Extremities: edema with ecchymotic areas Neck: soft, supple CVS:S1S2 regular Psych: pleasant, co-operative Laboratory Results - last 24 hr 09/27/18 09/27/18 09/28/18 16:56 21:04 05:59 POC Glucometer 326 320 69 09/28/18 10:53 POC Glucometer 102 Active Medications Generic Name Dose Route Start Last Admin Trade Name Freq PRN Reason Stop Dose Admin Acetaminophen 650 mg 09/18/18 15:08 Tylenol - PO Q4H PRN FEVER Allopurinol 50 mg 09/19/18 10:00 09/28/18 10:34 Zyloprim - PO 50 mg DAILY [facility] Administration Alprazolam 0.25 mg 09/19/18 17:22 Xanax - PO Q12H PRN ANXIETY Aspirin 81 mg 09/19/18 10:00 09/28/18 10:35 Ecotrin - PO 81 mg DAILY [facility] Administration Atorvastatin Calcium 20 mg 09/18/18 22:00 09/27/18 21:37 Lipitor - PO 20 mg HS [facility] Administration Clopidogrel Bisulfate 75 mg 09/19/18 10:00 09/28/18 10:35 Plavix - PO 75 mg DAILY [facility] Administration Cyanocobalamin 200 mcg 09/19/18 10:00 09/28/18 10:36 Vitamin B12 - PO 200 mcg DAILY [facility] Administration Docusate Sodium 100 mg 09/20/18 13:15 09/28/18 10:35 Colace - PO 100 mg BID [facility] Administration Ezetimibe 10 mg 09/19/18 10:00 09/28/18 10:36 Zetia - PO 10 mg DAILY [facility] Administration Furosemide 80 mg 09/26/18 09:52 09/28/18 10:35 Lasix - PO 80 mg DAILY [facility] Administration Furosemide 40 mg 09/28/18 11:36 Lasix - PO 09/28/18 11:37 ONCE ONE Guaifenesin/Codeine Phosphate 5 ml 09/23/18 10:57 09/26/18 22:05 Robitussin Ac - PO 5 ml TID PRN Administration COUGH Insulin Aspart 1 vial 09/18/18 16:30 09/28/18 11:17 Novolog Vial Sliding Scale - SQ Not Given ACHS [facility] Protocol Insulin Detemir 30 units 09/21/18 12:50 09/28/18 06:24 Levemir Vial SQ Not Given BID@0700,2200 [facility] Lactobacillus Acidophilus 1 tab 09/19/18 10:00 09/28/18 10:35 Bacid - PO 1 tab DAILY [facility] Administration Metoprolol Succinate 25 mg 09/21/18 10:00 09/28/18 10:35 Toprol Xl - PO 25 mg DAILY [facility] Administration Ondansetron HCl 4 mg 09/18/18 15:08 Zofran Injection IVPUSH Q6H PRN NAUSEA Pantoprazole Sodium 40 mg 09/20/18 22:00 09/28/18 10:35 Protonix - PO 40 mg BID [facility] Administration Polyethylene Glycol 17 gm 09/20/18 13:15 09/28/18 10:36 Miralax (For Daily Use) - PO 17 grams BID [facility] Administration Prednisone 60 mg 09/26/18 10:00 09/28/18 10:35 Deltasone - PO 60 mg DAILY [facility] Administration Ranolazine 1,000 mg 09/18/18 22:00 09/28/18 10:36 Ranexa - PO 1,000 mg BID [facility] Administration Simethicone 80 mg 09/20/18 13:09 Mylicon - PO QID PRN DYSPEPSIA ASSESSMENT/PLAN: 72 yom with PMhx of End stage COPD, Steroid/oxygen dependent Pulmonary fibrosis/ILD, SHANTI on CPAP at night, Pulmonary HTN, CKD stage III, LV systolic dysfunction, prior admissions for CHF, CAD s/p [place], 2Stents , T2DM on Insulin, Hypercholesterolemia,recurrent admissions with dyspnea/CHF/COPD exac admitted with fall, vomitting/retching and fevers. -Suspected aspiration pneumonia -End stage COPD with exacerbation -Pulmonary fibrosis/ILD -Chronic systolic heart failure -SHANTI on CPAP -Pulmonary HTN -CKD stage III -CAD s/p [place]/PCI -IDDM -HLD Plan: Id/pulmonary/palliative care input noted. PO prednisone with slow taper, Lasix 80 mg daily. Additional 40 mg PO lasix today. s/p 7 days of zosyn, off abx. Continue ASA/plavix/statin/metoprolol/ranexa/ezetemibe. Levemir/ISS. DVTPPX declines heparin given prior h/o concerning abdominal wall bleed, d/sarabjit. Dispo plan for dc home with hospice Saturday if arrangements made. Discussed with patient, nursing Visit type - Emergency Visit Emergency Visit: Yes ED Registration Date: 09/18/18 Care time: The patient presented to the Emergency Department on the above date and was hospitalized for further evaluation of their emergent condition. - New Patient This patient is new to me today: No - Critical Care Critical Care patient: No - Discharge Referral Referred to [facility] Med P.C.: No
[2018-09-28] MEDS ORDERED: FUROSEMIDE 40 MG TABLET (FP) PO ONE (11:45)
--- NOTE | 2018-09-28 12:17 | PN ---
Progress Note (short form) - Note Progress Note: PULMONARY Breathing stable at rest, still dyspneic with minimal exertion. No fevers or chills. Vital Signs Period Temp Pulse Resp BP Sys/Meraz Pulse Ox Last 24 Hr 97.5 F-98.2 F 66-87 20-24 127-153/69-89 100 Gen: less tachypneic with speaking Heart: RRR Lung: bibasilar rales Abd: soft, nontender Ext: no edema CBC, BMP 09/23/18 06:15 09/23/18 06:15 Active Medications Acetaminophen (Tylenol -) 650 mg PO Q4H PRN PRN Reason: FEVER Last Admin: 09/28/18 11:49 Dose: 650 mg Allopurinol (Zyloprim -) 50 mg PO DAILY [facility] Last Admin: 09/28/18 10:34 Dose: 50 mg Alprazolam (Xanax -) 0.25 mg PO Q12H PRN PRN Reason: ANXIETY Aspirin (Ecotrin -) 81 mg PO DAILY [facility] Last Admin: 09/28/18 10:35 Dose: 81 mg Atorvastatin Calcium (Lipitor -) 20 mg PO HS [facility] Last Admin: 09/27/18 21:37 Dose: 20 mg Clopidogrel Bisulfate (Plavix -) 75 mg PO DAILY [facility] Last Admin: 09/28/18 10:35 Dose: 75 mg Cyanocobalamin (Vitamin B12 -) 200 mcg PO DAILY [facility] Last Admin: 09/28/18 10:36 Dose: 200 mcg Docusate Sodium (Colace -) 100 mg PO BID [facility] Last Admin: 09/28/18 10:35 Dose: 100 mg Ezetimibe (Zetia -) 10 mg PO DAILY [facility] Last Admin: 09/28/18 10:36 Dose: 10 mg Furosemide (Lasix -) 80 mg PO DAILY [facility] Last Admin: 09/28/18 10:35 Dose: 80 mg Guaifenesin/Codeine Phosphate (Robitussin Ac -) 5 ml PO TID PRN PRN Reason: COUGH Last Admin: 09/26/18 22:05 Dose: 5 ml Insulin Aspart (Novolog Vial Sliding Scale -) 1 vial SQ [facility]; Protocol Last Admin: 09/28/18 11:17 Dose: Not Given Insulin Detemir (Levemir Vial) 30 units SQ BID@0700,2200 [facility] Last Admin: 09/28/18 06:24 Dose: Not Given Lactobacillus Acidophilus (Bacid -) 1 tab PO DAILY [facility] Last Admin: 09/28/18 10:35 Dose: 1 tab Metoprolol Succinate (Toprol Xl -) 25 mg PO DAILY [facility] Last Admin: 09/28/18 10:35 Dose: 25 mg Ondansetron HCl (Zofran Injection) 4 mg IVPUSH Q6H PRN PRN Reason: NAUSEA Pantoprazole Sodium (Protonix -) 40 mg PO BID [facility] Last Admin: 09/28/18 10:35 Dose: 40 mg Polyethylene Glycol (Miralax (For Daily Use) -) 17 gm PO BID [facility] Last Admin: 09/28/18 10:36 Dose: 17 grams Prednisone (Deltasone -) 60 mg PO DAILY [facility] Last Admin: 09/28/18 10:35 Dose: 60 mg Ranolazine (Ranexa -) 1,000 mg PO BID [facility] Last Admin: 09/28/18 10:36 Dose: 1,000 mg Simethicone (Mylicon -) 80 mg PO QID PRN PRN Reason: DYSPEPSIA A/P Acute on Chronic Hypoxic Respiratory Failure Acute Exacerbation of Interstitial Lung Disease Acute COPD Exacerbation Pneumonia CKD CAD LV Systolic Dysfunction Pulmonary HTN HTN DM h/o CVA SHANTI - s/p antibiotics - prednisone taper - inhaled bronchodilators - O2 to keep Spo2 >90% - glucose control - DVT prophylaxis - for home hospice placement
[2018-09-28] MEDS: guaiFENesin/CODEINE 5 ML UNIT-DOSE CUPS PO PRN (16:34)
[2018-09-28] MEDS: ATORVASTATIN CA 20 MG TABLET (FP) PO SCH (21:09)
[2018-09-28] MEDS ORDERED: INSULIN (LEVEMIR) 100 UNITS/ML UNITS SQ SCH (22:00)
[2018-09-29] MEDS ORDERED: INSULIN (NOVOLOG) ASPART 100 UNITS/ML 10ML VIAL ONE (04:37)
[2018-09-29] MEDS: INSULIN SLIDING SCALE (NOVOLOG) 1 VIAL SQ SCH ×2 (06:32→11:42)
[2018-09-29] MEDS ORDERED: INSULIN (LEVEMIR) 100 UNITS/ML UNITS SQ SCH (07:00)
--- NOTE | 2018-09-29 08:23 | DS ---
Physical Exam: SUBJECTIVE: Patient seen and examined, overall unchanged breathing. Stills short of breath with ambulation and activity. OBJECTIVE: Vital Signs Period Temp Pulse Resp BP Sys/Meraz Pulse Ox Last 24 Hr 97.2 F-98 F 73-86 22-24 122-154/69-91 100-100 PHYSICAL EXAM GENERAL: sitting in bed, tachypneic while talking Chest: bibasilar fine rales, overall improved air entry, no wheezing Abdomen:soft, obese, NT Extremities: edema with ecchymotic areas Neck: soft, supple CVS:S1S2 regular Psych: pleasant, co-operative LABS Laboratory Results - last 24 hr 09/28/18 09/28/18 09/28/18 10:53 16:00 21:03 POC Glucometer 102 326 391 09/29/18 05:47 POC Glucometer 199 Laboratory Last Values WBC 13.7 K/mm3 (4.0-10.0) H 09/23/18 06:15 RBC 4.29 M/mm3 (4.00-5.60) 09/23/18 06:15 Hgb 12.1 GM/dL (11.7-16.9) 09/23/18 06:15 Hct 36.6 % (35.4-49) 09/23/18 06:15 MCV 85.2 fl (80-96) 09/23/18 06:15 MCH 28.1 pg (25.7-33.7) 09/23/18 06:15 MCHC 33.0 g/dl (32.0-35.9) 09/23/18 06:15 RDW 18.3 % (11.9-15.9) H 09/23/18 06:15 Plt Count 168 K/MM3 (134-434) 09/23/18 06:15 MPV 8.3 fl (7.5-11.1) 09/23/18 06:15 Absolute Neuts (auto) 12.5 K/mm3 (1.5-8.0) H 09/23/18 06:15 Neutrophils % 91.0 % (42.8-82.8) H 09/23/18 06:15 Neutrophils % (Manual) 86.9 % (42.8-82.8) H 09/23/18 06:15 Band Neutrophils % 0.0 % 09/23/18 06:15 Lymphocytes % 4.0 % (8-40) L D 09/23/18 06:15 Lymphocytes % (Manual) 7.1 % (8-40) L 09/23/18 06:15 Monocytes % 4.6 % (3.8-10.2) 09/23/18 06:15 Monocytes % (Manual) 5 % (3.8-10.2) 09/23/18 06:15 Eosinophils % 0.0 % (0-4.5) 09/23/18 06:15 Eosinophils % (Manual) 0.0 % (0-4.5) 09/23/18 06:15 Basophils % 0.4 % (0-2.0) D 09/23/18 06:15 Basophils % (Manual) 0.0 % (0-2.0) 09/23/18 06:15 Myelocytes % (Man) 1 % (0-2) D 09/23/18 06:15 Promyelocytes % (Man) 0 % (0-2) 09/23/18 06:15 Blast Cells % (Manual) 0 % (0-0) 09/23/18 06:15 Nucleated RBC % 1 % (0-0) H 09/23/18 06:15 Metamyelocytes 0 % (0-2) 09/23/18 06:15 Hypochromia 0 09/23/18 06:15 Toxic Granulation 0 09/21/18 07:00 Dohle Bodies 0 09/21/18 07:00 Platelet Estimate Normal 09/23/18 06:15 Platelet Comment Present 09/19/18 07:27 Polychromasia 1+ 09/23/18 06:15 Poikilocytosis 1+ 09/23/18 06:15 Basophilic Stippling 0 09/21/18 07:00 Anisocytosis 1+ 09/23/18 06:15 Microcytosis 1+ 09/23/18 06:15 Macrocytosis 1+ 09/23/18 06:15 Spherocytes 0 09/21/18 07:00 Sickle Cells 0 09/21/18 07:00 Target Cells 0 09/21/18 07:00 Tear Drop Cells 0 09/21/18 07:00 Ovalocytes 1+ 09/23/18 06:15 Stomatocytes 0 09/21/18 07:00 Helmet Cells 0 09/21/18 07:00 [place] Bodies 0 09/21/18 07:00 Jolon Rings 0 09/21/18 07:00 Marsha Cells 0 09/21/18 07:00 Acanthocytes (Spur) 0 09/21/18 07:00 Rouleaux 0 09/21/18 07:00 Fragmented RBCs 0 09/21/18 07:00 Schistocytes 0 09/21/18 07:00 PT with INR 13.70 SEC (9.7-13.0) H 09/18/18 12:14 INR 1.16 (0.83-1.09) H 09/18/18 12:14 PTT (Actin FS) 36.6 SECONDS (25.2-36.5) H 09/18/18 12:14 VBG pH 7.37 (7.31-7.41) 09/18/18 12:14 POC VBG pCO2 44.4 mmHg (41-51) 09/18/18 12:14 POC VBG pO2 45.3 mmHg (30-40) H 09/18/18 12:14 VBG HCO3 24.9 mmol/L (23-29) 09/18/18 12:14 VBG O2 Sat (Neil) 76.1 % (70-80) 09/18/18 12:14 VBG Base Excess -0.1 meq/l (-2-2) 09/18/18 12:14 Sodium 139 mmol/L (136-145) 09/23/18 06:15 Potassium 4.4 mmol/L (3.5-5.1) 09/23/18 06:15 Chloride 106 mmol/L (98-107) 09/23/18 06:15 Carbon Dioxide 27 mmol/L (21-32) 09/23/18 06:15 Anion Gap 7 MMOL/L (8-16) L 09/23/18 06:15 BUN 53.0 mg/dL (7-18) H 09/23/18 06:15 Creatinine 2.0 mg/dL (0.55-1.3) H 09/23/18 06:15 Est GFR (CKD-EPI)AfAm 38.06 09/23/18 06:15 Est GFR (CKD-EPI)NonAf 32.84 09/23/18 06:15 POC Glucometer 199 UNITS (80-120) 09/29/18 05:47 Random Glucose 153 mg/dL (74-106) H 09/23/18 06:15 Lactic Acid 1.2 mmol/L (0.4-2.0) 09/18/18 14:56 Calcium 8.9 mg/dL (8.5-10.1) 09/23/18 06:15 Phosphorus 3.5 mg/dL (2.5-4.9) 09/23/18 06:15 Magnesium 2.3 mg/dL (1.8-2.4) 09/23/18 06:15 Total Bilirubin 0.7 mg/dL (0.2-1) 09/18/18 12:14 AST 22 U/L (15-37) 09/18/18 12:14 ALT 19 U/L (13-61) 09/18/18 12:14 Alkaline Phosphatase 82 U/L (45-117) 09/18/18 12:14 Troponin I < 0.02 ng/ml (0.00-0.05) 09/18/18 12:14 Total Protein 6.2 g/dl (6.4-8.2) L 09/18/18 12:14 Albumin 2.9 g/dl (3.4-5.0) L 09/18/18 12:14 Urine Color Dk yellow 09/18/18 18:00 Urine Appearance Clear 09/18/18 18:00 Urine pH 5.0 (5.0-8.0) 09/18/18 18:00 Ur Specific [place] 1.020 (1.010-1.035) 09/18/18 18:00 Urine Protein 2+ (NEGATIVE) H 09/18/18 18:00 Urine Glucose (UA) Negative (NEGATIVE) 09/18/18 18:00 Urine Ketones Trace (NEGATIVE) H 09/18/18 18:00 Urine Blood Negative (NEGATIVE) 09/18/18 18:00 Urine Nitrite Negative (NEGATIVE) 09/18/18 18:00 Urine Bilirubin 1+ (NEGATIVE) H 09/18/18 18:00 Urine Urobilinogen 0.2 mg/dL (0.2-1.0) 09/18/18 18:00 Ur Leukocyte Esterase Negative (NEGATIVE) 09/18/18 18:00 Urine WBC (Auto) 1 /hpf (0-5) 09/18/18 18:00 Urine RBC (Auto) 6 /hpf (0-4) 09/18/18 18:00 Urine Casts (Auto) 11 /lpf (0-8) 09/18/18 18:00 U Pathogenic Cast Auto Granular casts /lpf (NEGATIVE) 09/18/18 18:00 U Epithel Cells (Auto) 1.8 /HPF (0-5/HPF) 09/18/18 18:00 Urine Bacteria (Auto) 2.4 /hpf (NEGATIVE) 09/18/18 18:00 Microbiology 09/18/18 12:14 Blood - Peripheral Venous Blood Culture - Final NO GROWTH AFTER 5 DAYS INCUBATION 09/18/18 12:14 Blood - Peripheral Venous Blood Culture - Final NO GROWTH AFTER 5 DAYS INCUBATION 09/18/18 19:06 Sputum - Expectorated Gram Stain - Final 09/18/18 19:06 Sputum - Expectorated Sputum Culture - Final [facility]: Date of Admission:09/18/18 Date of Discharge: 09/29/18 Minutes to complete discharge: 40 Discharge Summary Reason For Visit: SEPSIS DUE TO PNEUMONIA,CVA Current Active Problems Acute CVA (cerebrovascular accident) (Acute) Pneumonia (Acute) Hospital Course: 72 yom with PMhx of End stage COPD, Steroid/oxygen dependent Pulmonary fibrosis/ILD, SHANTI on CPAP at night, Pulmonary HTN, CKD stage III, LV systolic dysfunction, prior admissions for CHF, CAD s/p [place], 2Stents , T2DM on Insulin, Hypercholesterolemia,recurrent admissions with dyspnea/CHF/COPD exac admitted with fall, vomitting/retching and fevers. He finished 7 days of zosyn for suspected aspiration pneumonia. He was placed on IV Solumedrol but continued to have high oxygen requirements. Palliative care was consulted and given end stage COPD, overall declining status, not being a candidate for transplant, patient and family expressed wishes to focus ofnquality of life and palliative care at home. He was DNR/DNI and will be discharged home with hospice. Condition: Improved - Instructions Disposition: VNS/HOME HEALTH CARE - Home Medications Comprehensive Discharge Medication List: Ambulatory Orders Albuterol Sulfate [Proair Hfa] 2 inh IH QID 02/21/18 Allopurinol [Zyloprim -] 50 mg PO DAILY 02/21/18 Cholecalciferol (Vitamin D3) [Vitamin D -] 2,000 unit PO DAILY 02/21/18 Dulaglutide [Trulicity] 1.5 mg SQ WEEKLY 02/21/18 Ezetimibe [Zetia -] 10 mg PO DAILY 02/21/18 Lactobacillus Acidophilus [Acidophilus] 1 each PO DAILY 02/21/18 Metoprolol Succinate 50 mg PO HS 02/21/18 Pantoprazole Sodium [Protonix] 40 mg PO DAILY 02/21/18 Pitavastatin Calcium [Livalo] 4 mg PO DAILY 02/21/18 Ubidecarenone [Co Q-10] 200 mg PO DAILY 02/21/18 Furosemide [Lasix] 80 mg PO DAILY 03/13/18 Insulin (Levemir) [Levemir Vial] 0 units SQ [facility] 03/17/18 Cider Vinegar [Apple Cider Vinegar] 500 mg PO DAILY 06/19/18 Cyanocobalamin (Vitamin B-12) [Vitamin B-12] 200 mg PO DAILY 06/19/18 Insulin Sliding Scale [Novolog Vial Sliding Scale -] 0 units SQ ACHS 06/19/18 Nintedanib Esylate [Ofev] 150 mg PO DAILY 06/19/18 Turmeric/Turmeric Root Extract [Turmeric 500 mg Capsule] 500 mg PO DAILY Aspirin Coated [Ecotrin -] 81 mg PO DAILY #30 tablet.ec 06/24/18 Clopidogrel Bisulfate [Plavix -] 75 mg PO DAILY #30 tablet 08/01/18 Miscellaneous Drug Not in Syst 1 each .ROUTE DAILY #1 each 08/01/18 Ranolazine [Ranexa -] 1,000 mg PO BID #120 tab 08/01/18 Glycopyrrolate/Formoterol Fum [Bevespi Aerosphere Inhaler] 5.9 gm IH [facility] 09/18 Prednisone See Taper PO [facility] #200 tablet 09/29/18 This patient is new to me today: No Emergency Visit: Yes ED Registration Date: 09/18/18 Care time: The patient presented to the Emergency Department on the above date and was hospitalized for further evaluation of their emergent condition. Critical Care patient: No - Discharge Referral Referred to [facility] Med P.C.: No
[2018-09-29 09:14] VITALS: BP 167/96; PULSE 67; TEMP 98.2
[2018-09-29] MEDS ORDERED: RANOLAZINE E.R. 500 MG TABLET (FP) ONE (09:59)
[2018-09-29] MEDS ORDERED: PT OWN MED DRAWER 7, Y5N ONE (10:00)
[2018-09-29] MEDS: FUROSEMIDE 40 MG TABLET (FP) PO SCH (10:07)
[2018-09-29] MEDS: DOCUSATE SODIUM 100 MG CAPSULE (FP) PO SCH (10:07)
[2018-09-29] MEDS: metoPROLOL SUCCINATE 25 MG TAB.SR.24H (FP) PO SCH (10:07)
[2018-09-29] MEDS: guaiFENesin/CODEINE 5 ML UNIT-DOSE CUPS PO PRN (10:07)
[2018-09-29] MEDS: CLOPIDOGREL BISULFATE 75 MG TABLET (FP) PO SCH (10:07)
[2018-09-29] MEDS: predniSONE 20 MG TABLET (UD) PO SCH (10:07)
[2018-09-29] MEDS: PANTOPRAZOLE 40 MG TABLET (FP) PO SCH (10:07)
[2018-09-29] MEDS: CYANOCOBALAMIN (VITAMIN B-12) 100 MCG TABLET PO SCH (10:08)
[2018-09-29] MEDS: ALLOPURINOL 100 MG TABLET (FP) PO SCH (10:08)
[2018-09-29] MEDS: RANOLAZINE E.R. 1,000 MG TABLET (FP) PO SCH (10:09)
[2018-09-29] MEDS: ASPIRIN COATED 81 MG TABLET.EC PO SCH (10:10)
[2018-09-29] MEDS: LACTOBACILLUS ACIDOPHILUS 1 TABLET PO SCH (10:12)
[2018-09-29] MEDS: EZETIMIBE 10 MG TABLET (FP) PO SCH (10:13)
[2018-09-29] MEDS: POLYETHYLENE GLYCOL 3350 119 GM BTL PO SCH (10:13)
--- NOTE | 2018-09-29 11:11 | PN ---
Progress Note (short form) - Note Progress Note: Breathing overall better. Still with some HEIN. No fevers or chills. Intake & Output 09/26/18 09/27/18 09/28/18 09/29/18 23:59 23:59 23:59 23:59 Intake Total 1600 710 625 Output Total 1999 1000 2250 500 Balance -400 -290 -1625 -500 Weight 205 lb 7 oz 203 lb 6.4 oz Last Vital Signs Temp Pulse Resp BP Pulse Ox 98.2 F 67 22 H 167/96 100 09/29/18 09:00 09/29/18 09:00 09/29/18 09:00 09/29/18 09:00 09/28/18 21:00 Active Medications Acetaminophen (Tylenol -) 650 mg PO Q4H PRN PRN Reason: FEVER Last Admin: 09/28/18 11:49 Dose: 650 mg Allopurinol (Zyloprim -) 50 mg PO DAILY [facility] Last Admin: 09/29/18 10:08 Dose: 50 mg Alprazolam (Xanax -) 0.25 mg PO Q12H PRN PRN Reason: ANXIETY Aspirin (Ecotrin -) 81 mg PO DAILY [facility] Last Admin: 09/29/18 10:10 Dose: 81 mg Atorvastatin Calcium (Lipitor -) 20 mg PO HS [facility] Last Admin: 09/28/18 21:09 Dose: 20 mg Clopidogrel Bisulfate (Plavix -) 75 mg PO DAILY [facility] Last Admin: 09/29/18 10:07 Dose: 75 mg Cyanocobalamin (Vitamin B12 -) 200 mcg PO DAILY [facility] Last Admin: 09/29/18 10:08 Dose: 200 mcg Docusate Sodium (Colace -) 100 mg PO BID [facility] Last Admin: 09/29/18 10:07 Dose: 100 mg Ezetimibe (Zetia -) 10 mg PO DAILY [facility] Last Admin: 09/29/18 10:13 Dose: 10 mg Furosemide (Lasix -) 80 mg PO DAILY [facility] Last Admin: 09/29/18 10:07 Dose: 80 mg Guaifenesin/Codeine Phosphate (Robitussin Ac -) 5 ml PO TID PRN PRN Reason: COUGH Last Admin: 09/29/18 10:07 Dose: 5 ml Insulin Aspart (Novolog Vial Sliding Scale -) 1 vial SQ [facility]; Protocol Last Admin: 09/29/18 06:32 Dose: 2 units Insulin Detemir (Levemir Vial) 20 units SQ HS [facility] Last Admin: 09/28/18 21:08 Dose: 20 units Insulin Detemir (Levemir Vial) 30 units SQ [facility] Last Admin: 09/29/18 06:31 Dose: 30 units Lactobacillus Acidophilus (Bacid -) 1 tab PO DAILY [facility] Last Admin: 09/29/18 10:12 Dose: 1 tab Metoprolol Succinate (Toprol Xl -) 25 mg PO DAILY [facility] Last Admin: 09/29/18 10:07 Dose: 25 mg Ondansetron HCl (Zofran Injection) 4 mg IVPUSH Q6H PRN PRN Reason: NAUSEA Pantoprazole Sodium (Protonix -) 40 mg PO BID [facility] Last Admin: 09/29/18 10:07 Dose: 40 mg Polyethylene Glycol (Miralax (For Daily Use) -) 17 gm PO BID [facility] Last Admin: 09/29/18 10:13 Dose: Not Given Prednisone (Deltasone -) 60 mg PO DAILY [facility] Last Admin: 09/29/18 10:07 Dose: 60 mg Ranolazine (Ranexa -) 1,000 mg PO BID [facility] Last Admin: 09/29/18 10:09 Dose: 1,000 mg Simethicone (Mylicon -) 80 mg PO QID PRN PRN Reason: DYSPEPSIA Gen: NAD Heart: RRR Lung: scattered rhonchi, no wheeze Abd: soft, nontender Ext: no edema Laboratory Results - last 24 hr 09/28/18 09/28/18 09/29/18 16:00 21:03 05:47 POC Glucometer 326 391 199 09/29/18 11:09 POC Glucometer 274 A/P Acute on Chronic Hypoxic Respiratory Failure Acute Exacerbation of Interstitial Lung Disease Acute COPD Exacerbation Pneumonia CKD CAD LV Systolic Dysfunction Pulmonary HTN HTN DM h/o CVA SHANTI - s/p antibiotics - prednisone taper - inhaled bronchodilators - O2 to keep Spo2 >90% - glucose control - DVT prophylaxis - for home hospice placement Dr Liz
== END 2018-09-29 12:36 | disposition hospice, home (50) | DRG 871 ==
LOC: JER 11:10 → JERBED 13:57 → J5S 16:45
PROVIDERS: ADMIT Internal Medicine; ATTEND Hospitalist
DX: A41.89 Other specified sepsis (principal); I63.9 Cerebral infarction, unspecified; J96.21 Acute and chronic respiratory failure with hypoxia; J69.0 Pneumonitis due to inhalation of food and vomit; N17.9 Acute kidney failure, unspecified; I50.22 Chronic systolic (congestive) heart failure; J84.9 Interstitial pulmonary disease, unspecified; J44.1 Chronic obstructive pulmonary disease with (acute) exacerbation; I13.0 Hypertensive heart and chronic kidney disease with heart failure and stage 1 through stage 4 chronic kidney disease, or unspecified chronic kidney disease; I25.10 Atherosclerotic heart disease of native coronary artery without angina pectoris; E11.9 Type 2 diabetes mellitus without complications; I27.20 Pulmonary hypertension, unspecified; G47.33 Obstructive sleep apnea (adult) (pediatric); E66.9 Obesity, unspecified; Z68.31 Body mass index [BMI] 31.0-31.9, adult; N18.3 Chronic kidney disease, stage 3 (moderate); Z98.61 Coronary angioplasty status; E78.5 Hyperlipidemia, unspecified; N40.0 Benign prostatic hyperplasia without lower urinary tract symptoms
CPT/HCPCS: 36415; 70450-TC; 71045-TC-FY; 80048; 80053; 81003; 82803; 82947; 82962; 83605; 83735; 84100; 84484; 85025; 85610; 85730; 87040; 87070; 87205; 93005; 93010; 94640; 97116-GP; 97162-GP; 99285-25; J0131; J1644; J7030